=== PATIENT | female | born 2000 | race Caucasian/White ===

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

== ENCOUNTER 2022-04-14 16:15 | Emergency (ER) | payer BC, MEDICAID, SELFPAY ==
[2022-04-14 16:16] VITALS: BP 140/90; PULSE 109; RESP 18; TEMP 36.7; O2SAT 97; BMI 30.7
--- NOTE | 2022-04-14 16:47 | EDS_ITS ---
HPI HPI - Female History of Present Illness Chief Complaint: Vag Bleeding Narrative Narrative: Patient is a by 5 months presents with vaginal bleeding. She states that she started having menses again, the go from light to heavy. Over the last few days, she started having menses again, but is having heavier vaginal bleeding than normal. She denies any chest pain or shortness of breath. No other bleeding diathesis. No lightheadedness or dizziness. She presents because of her heavier menses/heavier vaginal bleeding. [facility] Medical History Arrest of dilation, delivered, current hospitalization delivery delivered Chorioamnionitis Home Medications medroxyprogesterone 150 mg/mL intramuscular syringe (Depo-Provera) 150 mg IM [id number] #1 mL 04/12/22 [Rx Last Taken Unknown] Allergy/AdvReac Type Severity Reaction Status Date / Time No Known Allergies Allergy Verified 04/14/22 16:20 Surgical History History of surgery Social History household members: spouse housing: house current occupational status: unemployed pets and animals: Yes Smoking Status: Never smoker second hand exposure: No alcohol intake: never substance use type: does not use caffeine: No seatbelt use: always do you feel safe at home: Yes additional social history: - Adolph NOBLE ED ROS Narrative Constitutional: No fever, no chills. HEENT: No sore throat. No neck pain. No loss of vision. No rhinorrhea. Cardiovascular: No chest pain. No palpitations. No pedal edema. Respiratory: No cough, no shortness of breath. Abdominal: No abdominal pain. No nausea. No vomiting. Genitourinary: No dysuria. No hematuria. Heavy vaginal bleeding times days. Musculoskeletal: No myalgias. No arthralgias. Neurologic: No headaches. No dizziness. No lightheadedness. Skin: No rash. No change in color. Psychiatric: No depression. No anxiety. EXAM Physical Exam Narrative Exam Narrative: Afebrile. Vital signs noted. HEENT: Normocephalic. Atraumatic. PERRL, EOMI. Neck soft and supple. No point tenderness or step off. Cardiovascular: Regular rate and rhythm. No murmurs, rubs, or gallops appreciated. Respiratory: No tachypnea. Lungs clear to auscultation bilaterally. Gastrointestinal: Abdomen soft, nontender, with normoactive bowel sounds. No rebound or guarding. Genitourinary: Chaperoned pelvic examination reveals small amount of blood on the external vagina. Speculum examination reveals small clots and a small amount of old blood in the vaginal vault with minimal bleeding coming from the cervical os. Bimanual examination was deferred. Neurological: Awake. Alert. Nonfocal, nonlateralizing. Skin: No rash. Normal color. No pallor. Musculoskeletal: No pedal edema. Full range of motion extremities. Const Vital Signs: 04/14/22 16:16 Temperature 98.1 F Temperature Source Temporal Pulse Rate 109 H Respiratory Rate 18 Blood Pressure 140/90 H Blood Pressure Mean 106 Pulse Ox 97 Oxygen Delivery Method Room Air MDM MDM MDM Narrative Medical decision making narrative: I will obtain a CBC to look at her platelet count and her hemoglobin, along with a serum test. Serum test is negative. CBC is grossly normal with a normal hemoglobin of 13.1. At this point in time, I do feel that she is just having heavy menstrual bleeding. She states she has an appointment with her LABOR TRAINER, Dr. Renate Cervantes tomorrow after she picks up her Depo- Provera shot. I feel she can be discharged safely home with follow-up. Return instructions to the emergency department were reviewed. Disposition is discharged home in stable condition. Lab Data Attestation: I reviewed the patient's lab results. Labs: Laboratory Results - last 24 hr 04/14/22 04/14/22 17:00 17:00 WBC 7.0 RBC 4.46 Hgb 13.1 Hct 38.4 MCV 86.1 MCH 29.4 MCHC 34.1 RDW Std Deviation 40.1 RDW Coeff of Jil 12.8 Plt Count 276 MPV 11.0 Immature Gran % (Auto) 0.100 Neut % (Auto) 56.8 Lymph % (Auto) 30.9 Bennett % (Auto) 9.0 Eos % (Auto) 2.6 Baso % (Auto) 0.6 Absolute Neuts (auto) 4.0 Absolute Lymphs (auto) 2.17 Nucleated RBC % 0 Serum , Qual NEGATIVE Discharge Plan Triage Chief Complaint: Vag Bleeding ED Provider: Evert Arciniega Dx/Rx/DC Orders Clinical Impression: Episode of heavy vaginal bleeding, Menorrhagia Instructions: ED Heavy Menstrual Bleeding Prescriptions: No Action medroxyprogesterone [Depo-Provera] 150 mg/mL syringe 150 mg IM [id number] Qty: 1 3RF Primary Care Provider: Care Physician,No Primary Referrals: Renate Cervantes MD [Med Staff - Active Staff] - 1 Day Care Physician,No Primary [Primary Care Provider] - Activity Restrictions/Additional Instructions: Keep your scheduled appointment with Dr. Renate Cervantes tomorrow after picking up your Depo-Provera. Disposition Disposition: Home, Self Care
[2022-04-14 17:15] LABS: Absolute Lymphocyte Count 2.17 X10^3/uL (0.83-4.51); Basophil# 0.04 X10^3/uL; Basophil% 0.6 % (0-1); Eosinophil# 0.18 X10^3/uL; Eosinophils% 2.6 % (0-5); Hematocrit 38.4 % (37-47); Hemoglobin 13.1 g/dL (12.0-15.0); Lymphocyte # 2.17 X10^3/ul (0.83-4.51); Lymphocyte % 30.9 % (19-41); Mean Corp Hgb Conc 34.1 g/dL (32-36); Mean Corpuscular Hgb 29.4 pg (27.0-32.0); Mean Corpuscular Volume 86.1 fL (81-99); Monocyte# 0.63 X10^3/uL; NRBC Flagged by Analyzer 0 % (0-5); Neutrophil # 3.99 X10^3/uL (2.7-7.7); Neutrophil % 56.8 % (47-70); Platelet Count 276 K/mm3 (150-450); RBC Distribution Width CV 12.8 % (11.6-14.6); RBC Distribution Width SD 40.1 fl (35.1-43.9); Red Blood Count 4.46 M/mm3 (4.2-5.4)
[2022-04-14 17:29] LABS: Internal QC Validated? YES +Cl - CLEAR BKGD; Pregnancy, Serum, hCG Quali. NEGATIVE Negative
== END 2022-04-14 18:02 | disposition home or self-care (01) ==
PROVIDERS: Emergency Provider Emergency Medicine; Visit Provider Emergency Medicine
DX: N93.9 Abnormal uterine and vaginal bleeding, unspecified (principal); N92.0 Excessive and frequent menstruation with regular cycle
CPT/HCPCS: 36415; 84703; 85025; 99282

== ENCOUNTER 2022-08-11 06:00 | Emergency (ER) | payer BC, MEDICAID, SELFPAY ==
[2022-08-11 06:01] VITALS: BP 157/86; PULSE 85; RESP 15; TEMP 36; O2SAT 97; BMI 39.0
--- NOTE | 2022-08-11 06:21 | EDS_ITS ---
HPI History of Present Illness Chief Complaint: Eye Problem Narrative Narrative: 22-year-old female who denies significant past medical history presents with crusting of her right eye, and redness with discharge. She denies any loss of vision. She states she awoke this morning and her right eye felt like it was glued shut. She denies any fevers or chills, no exacerbating or alleviating factors. Of note, she states that she was in the emergency department with her son a few days ago and he was diagnosed with pinkeye. She thinks she has the same. [facility] Medical History Arrest of dilation, delivered, current hospitalization delivery delivered Chorioamnionitis Home Medications medroxyprogesterone 150 mg/mL intramuscular syringe (Depo-Provera) 150 mg IM [id number] #1 mL 04/12/22 [Rx Last Taken Unknown] Allergy/AdvReac Type Severity Reaction Status Date / Time No Known Allergies Allergy Verified 04/15/22 13:16 Surgical History History of section History of surgery Social History household members: spouse housing: house current occupational status: unemployed pets and animals: Yes Smoking Status: Never smoker second hand exposure: No alcohol intake: never substance use type: does not use caffeine: No seatbelt use: always do you feel safe at home: Yes additional social history: - Adolph REAL ROS ED ROS Narrative Constitutional: No fever, no chills. HEENT: No sore throat. No neck pain. No loss of vision. No rhinorrhea. Right eye redness, discharge, matting shut. Cardiovascular: No chest pain. No palpitations. No pedal edema. Respiratory: No cough, no shortness of breath. Abdominal: No abdominal pain. No nausea. No vomiting. Genitourinary: No dysuria. No hematuria. Musculoskeletal: No myalgias. No arthralgias. Neurologic: No headaches. No dizziness. No lightheadedness. Skin: No rash. No change in color. Psychiatric: No depression. No anxiety. EXAM Physical Exam Narrative Exam Narrative: Afebrile. Vital signs noted. HEENT: Normocephalic. Atraumatic. PERRL, EOMI. Neck soft and supple. No point tenderness or step off. Injected conjunctive of right eye. No noted exudate. Cardiovascular: Regular rate and rhythm. No murmurs, rubs, or gallops appreciated. Respiratory: No tachypnea. Lungs clear to auscultation bilaterally. Gastrointestinal: Abdomen soft, nontender, with normoactive bowel sounds. No rebound or guarding. Neurological: Awake. Alert. Nonfocal, nonlateralizing. Skin: No rash. Normal color. No pallor. Musculoskeletal: No pedal edema. Full range of motion extremities. Const Vital Signs: 08/11/22 06:01 Temperature 96.8 F L Temperature Source Temporal Pulse Rate 85 Respiratory Rate 15 Blood Pressure 157/86 H Blood Pressure Mean 109 Pulse Ox 97 Oxygen Delivery Method Room Air MDM MDM MDM Narrative Medical decision making narrative: Clinically, the patient has conjunctivitis. Although it may be viral, she states that the ointment helped her son and cleared it up within a few days. Visual acuity will be obtained and noted per chart. Additionally, I did instill tetracaine and fluorescein in her right eye and examined it under bluelight and see no evidence of a corneal abrasion. She was told not to wear any eye make- up, but she states she does not wear any make-up at all. Additionally, she does not wear contact lenses. She was given erythromycin ointment and told to use warm compresses to her right eye. She will follow-up with ophthalmology as needed if no improvement in 3 to 5 days. I feel she be discharged safely home with follow-up. Return instructions to the emergency department were reviewed. She was given a note to be off work for the next 3 days until her conjunctivitis has improved/resolved. Disposition is discharged home in stable condition. Discharge Plan Triage Chief Complaint: Eye Problem ED Provider: Evert Arciniega Dx/Rx/DC Orders Clinical Impression: Conjunctivitis Instructions: ED Conjunctivitis, Nonspecific Prescriptions: No Action medroxyprogesterone [Depo-Provera] 150 mg/mL syringe 150 mg IM [id number] Qty: 1 3RF Stand Alone Forms: ED Work / School Excuse Primary Care Provider: Care Physician,No Primary Referrals: John Choe MD [Med Staff - Active Staff] - 3-5 Days if not improving Care Physician,No Primary [Primary Care Provider] - Disposition Disposition: Home, Self Care
[2022-08-11] MEDS: Tetracaine 0.5% Ophthalmic Bottle 1 DRP OPHTHALMIC (06:31)
[2022-08-11] MEDS: Fluorescein 1 MG STRIP 1 STRIP OPHTHALMIC (06:31)
[2022-08-11] MEDS: Erythromycin Base 1 OPTH.TUBE 1 APPLIC RIGHT EYE (06:34)
== END 2022-08-11 06:38 | disposition home or self-care (01) ==
LOC: ED 06:21
PROVIDERS: Emergency Provider Emergency Medicine; Visit Provider Emergency Medicine
DX: H10.9 Unspecified conjunctivitis (principal)
CPT/HCPCS: 99282

== ENCOUNTER 2023-08-15 17:34 | Emergency (ER) | payer BC, SELFPAY ==
[2023-08-15 17:35] VITALS: BP 129/76; PULSE 92; RESP 16; TEMP 36.6; O2SAT 98; BMI 38.5
[2023-08-15 19:40] VITALS: BP 122/71; PULSE 62; RESP 12; TEMP 36.2; O2SAT 99
--- NOTE | 2023-08-15 22:25 | EDS_ITS ---
HPI History of Present Illness Chief Complaint: Rash Narrative Narrative: 23-year-old female presenting with rash on back of hands bilaterally. It is itching and burning. She is some mild redness. 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 Patient states that she does not have any known allergies. She not had any new contacts with anything. She states she told her boss that was sent to the ER for evaluation. [facility] Medical History Arrest of dilation, delivered, current hospitalization delivery delivered Chorioamnionitis Home Medications NK 08/15/23 [History Last Taken Unknown] Allergy/AdvReac Type Severity Reaction Status Date / Time No Known Allergies Allergy Verified 08/15/23 17:37 Surgical History History of section History of surgery Social History household members: spouse housing: house current occupational status: unemployed pets and animals: Yes Smoking Status: Never smoker second hand exposure: No alcohol intake: never substance use type: does not use caffeine: No seatbelt use: always do you feel safe at home: Yes additional social history: - Adolph NOBLE ED Constitutional Constitutional ED: Denies chills, fever(s) or sweats Eyes Eyes: Denies blurry vision or change in vision ENT ENT ED: Denies ear pain or sore throat Cardiovascular Cardiovascular: Denies chest pain, palpitations or racing heartbeat Respiratory/Chest Respiratory/Chest: Denies cough, dyspnea or sputum Gastrointestinal Gastrointestinal: Denies abdominal pain, constipation, diarrhea, nausea or vomiting Genitourinary Genitourinary ED: Denies dysuria, hematuria or urinary frequency Musculoskeletal Musculoskeletal: Denies arthralgias, myalgias or neck pain Integumentary Reports rash; Denies abscess or Abrasions Neurologic Neurologic: Denies headache(s), paresthesias or weakness Psychiatric Psychiatric: Denies anxiety, depression, suicidal ideation or suicidal thoughts Endocrine Endocrinology: Denies polydipsia or polyuria EXAM Physical Exam Const Vital Signs: 08/15/23 17:35 08/15/23 19:40 Temperature 98 F 97.2 F L Temperature Source Temporal Pulse Rate 92 62 Respiratory Rate 16 12 Blood Pressure 129/76 H 122/71 H Blood Pressure Mean 93 88 Pulse Ox 98 99 Oxygen Delivery Method Room Air Positive well nourished General Appearance ED: NAD; Negative for pallor HEENT Reports moist mucous membranes Eyes PERRL and EOMs intact bilaterally Resp normal respiratory effort Cardio regular rate and regular rhythm Neuro oriented x3 and CN's II-XII intact bilaterally Sensorium / Orientation: alert Psych mental status grossly normal Skin Skin Narrative: Mild erythema noted to the bilateral hands on the dorsum of both hands. Nontender to palpation. No lymphangitic streaking. No evidence of cellulitis. General Skin Exam: Negative for jaundice or pallor MDM MDM MDM Narrative Medical decision making narrative: Patient presenting rash on hands. This is likely contact dermatitis secondary to cleaning products. I counseled her to wear gloves when she is at work using this product. She can use hand moisturizer at home. I counseled her to use hypoallergenic soaps and detergents. [facility] with the [facility]. Impression: 1. contact dermatitis Lab Data Attestation: I reviewed the patient's lab results. Discharge Plan Triage Chief Complaint: Rash ED Provider: Ousmane Weller Dx/Rx/DC Orders Instructions: ED Contact Dermatitis Prescriptions: No Action NK Primary Care Provider: Care Physician,No Primary Referrals: Care Physician,No Primary [Primary Care Provider] - [facility] [Non-Staff] - 3-5 Days Disposition Disposition: Home, Self Care Discharge Date/Time: 08/15/23 20:00
== END 2023-08-15 20:00 | disposition home or self-care (01) ==
PROVIDERS: Emergency Provider Student in an Organized Health Care Education/Training Program; Visit Provider Student in an Organized Health Care Education/Training Program
DX: L25.9 Unspecified contact dermatitis, unspecified cause (principal)
CPT/HCPCS: 99282

== ENCOUNTER 2024-06-16 20:26 | Emergency (ER) | payer BC, SELFPAY ==
[2024-06-16 20:27] VITALS: BP 139/84; PULSE 87; RESP 16; TEMP 36.6; O2SAT 98; BMI 36.8
--- NOTE | 2024-06-16 20:52 | EX.ED.DYSGE1 ---
HPI <DANIEL Ash - Last Filed: 06/16/24 21:16> History of Present Illness Chief Complaint: Laceration Narrative Narrative: Patient is a 24-year-old female with no significant medical history, presenting to the emergency department for a laceration to the distal tip of the right fourth finger. Patient dates she was cutting a tomato when she excellently cut the tip of her finger. Tetanus vaccination unknown. She has full range of motion. She was concerned because the bleeding would not stop. Here for evaluation. PFS <DANIEL Ash - Last Filed: 06/16/24 21:16> [facility] Medical History Arrest of dilation, delivered, current hospitalization delivery delivered Chorioamnionitis Home Medications ?Medication ?Instructions ?Recorded ?Last Taken ?Type NK 08/15/23 Unknown History Allergy/AdvReac Type Severity Reaction Status Date / Time No Known Allergies Allergy Verified 06/16/24 20:27 Surgical History History of section History of surgery Social History household members: spouse housing: house current occupational status: unemployed pets and animals: Yes Smoking Status: Never smoker second hand exposure: No alcohol intake: never substance use type: does not use caffeine: No seatbelt use: always do you feel safe at home: Yes additional social history: - Max ROS <DANIEL Ash - Last Filed: 06/16/24 21:16> ROS ED ROS Narrative Constitutional: Negative for fever, chills, weight loss, weakness Eyes: Negative for vision loss, vision change, double vision ENT: Negative for any sore throat, ear pain, congestion Cardiovascular: Negative for any chest pain, tightness, palpitations Respiratory: Negative for any cough, sputum production, hemoptysis, dyspnea, dyspnea on exertion, orthopnea Gastrointestinal: Negative for any abdominal pain, nausea, vomiting, diarrhea, constipation, blood in stool, blood in vomit : Negative for any urinary frequency, dysuria, retention, blood in urine Muscle skeletal: Negative for any neck pain, back pain Neurological: Negative for any headache, syncope, dizziness Skin: Negative for any rashes, itching, abrasions. Positive for laceration to the distal tip of the right fourth finger Psychiatric: Negative for any depression, anxiety, stress, suicidal ideation, homicidal ideation Hematologic: Negative for any excessive bruising, easy bleeding EXAM <DANIEL Ash - Last Filed: 06/16/24 21:16> Physical Exam Narrative Exam Narrative: Vital signs reviewed. Extremities: No peripheral edema, no signs of gross trauma or deformity. Active full range of motion of all extremities. Patient has what appears to be a small avulsion like laceration of the distal tip of the right fourth finger. The nailbed is intact, this is superficial have it is bleeding. This would not be able be sutured however this will heal from the inside out. There is no open fracture or tuft fracture. Neuro: Cranial nerves II through XII intact, no focal neurological deficits. Skin: Clean dry and intact with no rash, purpura, petechiae, vesicles or pustules. Backs/flank: No CVA tenderness, no midline spinal tenderness, no deformity. Psych: Normal mood and affect. No SI, HI or acute psychosis. Const Vital Signs: 06/16/24 20:27 Temperature 98 F Temperature Source Temporal Pulse Rate 87 Respiratory Rate 16 Blood Pressure 139/84 H Blood Pressure Mean 102 Pulse Ox 98 Positive well nourished and well developed General Appearance ED: well developed <Dr. Franco Ortiz DO - Last Filed: 06/16/24 21:04> Physical Exam Const Vital Signs: 06/16/24 20:27 Temperature 98 F Temperature Source Temporal Pulse Rate 87 Respiratory Rate 16 Blood Pressure 139/84 H Blood Pressure Mean 102 Pulse Ox 98 MDM <DANIEL Ash - Last Filed: 06/16/24 21:16> [facility] Treatment and Re-Evaluation :: Differential diagnosis includes however is not limited to: Foreign body, open fracture, avulsion fracture, simple laceration Patient appears generally well, vital signs are stable, patient is nontoxic-appearing. Presenting to the emergency department with complaints of avulsion like fracture of the distal tip of the right fourth finger. Patient received a digital block with lidocaine. Patient will be irrigated, patient will likely be placed in a Gelfoam dressing. Patient's wound was irrigated, I did cleanse the distal tip of the right fourth finger. I did place a Gelfoam splint, as well as provide a pressure dressing with tube gauze. Patient tolerated well. Patient was given the other half the Gelfoam and told to change her dressing in 24 hours. She is happy with the plan of care, given instructions to return for any sort of infection. Tetanus was updated today. Patient stable for discharge. ED attending note: I evaluated the patient in conjunction with the LALIT. I agree with his/her statements and above findings. I have personally performed a face to face assessment of the patient and have reviewed the LALIT Note. I performed a substantive portion of the visit including all aspects of the following. I personally saw the patient performed chart review, physical exam, reviewed labs, imaging (if obtained), and formulated a treatment and management plan. Brief history: 24-year-old [id number] female presents with right fourth digit injury. Exam: Nursing triage notes reviewed, Vital signs reviewed Constitutional: please see mdm Extremities: No edema Neuro: Intact 5/5 strength with ok sign (median), intact finger abduction (ulnar) intact wrist extension (radial n). Intact sensation in the radial, ulnar, and median nerve distributions. Skin: Avulsion noted to the distal fourth digit of the right hand. MDM/plan: Chief Complaint: Finger laceration External records reviewed: Reviewed prior allergies, problem list, vital signs, current medications Factors affecting care: None Social determinants of health: None History obtained from others: Consults: None [facility] narrative: The patient was initially hemodynamically stable, afebrile and nontoxic-appearing. Nasal exam consistent with avulsion injury. I considered the following differential diagnosis: Laceration, avulsion Initial exam there is no obvious nailbed involvement. The patient's right upper extremity is neurovascularly intact. I placed a digital block using 1% lidocaine without epinephrine in the proximal phalanx. This achieved good anesthesia. Will further explore the wound and cleanse the wound. Will make final determination about sutures based on final exam. Please see LALIT note for final details. Shared decision making: I will have a discussion with the patient and or visitors regarding risk/benefits of further testing or admission. They will be made aware of of the risk/benefits inherent in this decision they will be given the opportunity to voice understanding. This note was generated with [employer] software. It may contain incorrect words, spelling, and punctuation that were not noted in review of the chart prior to signing. <Dr. Franco Ortiz, DO - Last Filed: 06/16/24 21:04> [facility] Treatment and Re-Evaluation :: Differential diagnosis includes however is not limited to: Foreign body, open fracture, avulsion fracture, simple laceration Patient appears generally well, vital signs are stable, patient is nontoxic-appearing. Presenting to the emergency department with complaints of avulsion like fracture of the distal tip of the right fourth finger. Patient received a digital block with lidocaine. Patient will be irrigated, patient will likely be placed in a Gelfoam dressing. ED attending note: I evaluated the patient in conjunction with the LALIT. I agree with his/her statements and above findings. I have personally performed a face to face assessment of the patient and have reviewed the LALIT Note. I performed a substantive portion of the visit including all aspects of the following. I personally saw the patient performed chart review, physical exam, reviewed labs, imaging (if obtained), and formulated a treatment and management plan. Brief history: 24-year-old [id number] female presents with right fourth digit injury. Exam: Nursing triage notes reviewed, Vital signs reviewed Constitutional: please see mdm Extremities: No edema Neuro: Intact 5/5 strength with ok sign (median), intact finger abduction (ulnar) intact wrist extension (radial n). Intact sensation in the radial, ulnar, and median nerve distributions. Skin: Avulsion noted to the distal fourth digit of the right hand. MDM/plan: Chief Complaint: Finger laceration External records reviewed: Reviewed prior allergies, problem list, vital signs, current medications Factors affecting care: None Social determinants of health: None History obtained from others: Consults: None [facility] narrative: The patient was initially hemodynamically stable, afebrile and nontoxic-appearing. Nasal exam consistent with avulsion injury. I considered the following differential diagnosis: Laceration, avulsion Initial exam there is no obvious nailbed involvement. The patient's right upper extremity is neurovascularly intact. I placed a digital block using 1% lidocaine without epinephrine in the proximal phalanx. This achieved good anesthesia. Will further explore the wound and cleanse the wound. Will make final determination about sutures based on final exam. Please see LALIT note for final details. Shared decision making: I will have a discussion with the patient and or visitors regarding risk/benefits of further testing or admission. They will be made aware of of the risk/benefits inherent in this decision they will be given the opportunity to voice understanding. This note was generated with [employer] dictation software. It may contain incorrect words, spelling, and punctuation that were not noted in review of the chart prior to signing. Discharge Plan Triage Chief Complaint: Laceration ED Midlevel Provider: Zeus Adorno ED Provider: Franco Ortiz Dx/Rx/DC Orders Clinical Impression: Finger laceration Instructions: ED Laceration, All Closures, ED Wound Check (No Infection) Prescriptions: No Action NK Primary Care Provider: Care Physician,No Primary Referrals: Care Physician,No Primary [Primary Care Provider] - Activity Restrictions/Additional Instructions: Please change my dressing in 24 hours. Ensure that is clean, place the Gelfoam first then another Band-Aid. The bleeding should have stopped. If it is not, and oozes, just apply pressure, this can be painful. Return for any worsening symptoms. Print Language: Syriac Disposition Disposition: Home, Self Care
[2024-06-16] MEDS: Lidocaine 1% (20 ml mdv) 20 ML Vial INFILT (20:58)
[2024-06-16] MEDS: Diphth,Pertuss(Acell),Tet Vac 0.5 ML Vial IM (21:17)
[2024-06-16 21:22] VITALS: BP 130/84; PULSE 80; RESP 16; TEMP 36.6; O2SAT 98
== END 2024-06-16 21:24 | disposition home or self-care (01) ==
PROVIDERS: Emergency Provider Emergency Medicine; Visit Provider Emergency Medicine
DX: S61.214A Laceration without foreign body of right ring finger without damage to nail, initial encounter (principal); X58.XXXA Exposure to other specified factors, initial encounter
CPT/HCPCS: 90715; 99283

== ENCOUNTER → 2024-08-29 | Outpatient (CLI) | payer SELFPAY ==
[2024-08-29 12:20] LABS: Absolute Lymphocyte Count 2.01 X10^3/uL (0.83-4.51); Absolute Neutrophil Count 6.1 X10^3/uL (2.0-7.7); Basophil# 0.05 X10^3/uL; Basophil% 0.6 % (0-1); Eosinophil# 0.07 X10^3/uL; Eosinophils% 0.8 % (0-5); Hematocrit 38.2 % (37-47); Lymphocyte # 2.01 X10^3/ul (0.83-4.51); Lymphocyte % 22.5 % (19-41); Mean Corpuscular Hgb 30.2 pg (27.0-32.0); Mean Corpuscular Volume 88.6 fL (81-99); Mean Platelet Vol. 11.1 fl (6.2-12.0); Monocyte# 0.71 X10^3/uL; Monocyte% 7.9 % (0-10); NRBC Flagged by Analyzer 0 % (0-5); Neutrophil # 6.06 X10^3/uL (2.7-7.7); Neutrophil % 67.8 % (47-70); Platelet Count 254 K/mm3 (150-450); RBC Distribution Width CV 11.9 % (11.6-14.6); RBC Distribution Width SD 38.4 fl (35.1-43.9); Red Blood Count 4.31 M/mm3 (4.2-5.4); White Blood Count 8.9 K/mm3 (4.4-11.0)
[2024-08-29 13:04] LABS: HIV Nonreactive (Nonreactive); Hepatitis B Surface Antigen Nonreactive (Nonreactive); Rubella IgG REAC (Nonreactive); Syphilis Antibodies Nonreactive (Nonreactive)
[2024-08-29 13:26] LABS: Hemoglobin A1c 5.1 % (<=5.6)
[2024-08-29 21:10] LABS: Hepatitis C Antibody Nonreactive (Nonreactive)
[2024-08-31 12:08] LABS: Chlamydia By Nucleic Acid AMP Negative (Negative); Gonococcus By Nucleic Acid AMP Negative (Negative)
[2024-09-04 15:03] LABS: HPV Reflexed? NOT INDICATED
== END | disposition home or self-care (01) ==
PROVIDERS: Referring Provider Advanced Practice Midwife; Visit Provider Advanced Practice Midwife
DX: O99.210 Obesity complicating pregnancy, unspecified trimester (principal); Z3A.00 Weeks of gestation of pregnancy not specified; Z12.4 Encounter for screening for malignant neoplasm of cervix
CPT/HCPCS: 36415; 83036; 85025; 86703; 86762; 86780; 86803; 86850; 86900; 86901; 87086; 87088; 87340; 87491; 87591; 88175; G0145

== ENCOUNTER 2024-08-30 00:38 | Emergency (ER) | payer SELFPAY ==
[2024-08-30 00:40] VITALS: BP 130/69; PULSE 81; RESP 18; TEMP 36.1; O2SAT 99; BMI 16.5
--- NOTE | 2024-08-30 00:55 | US_ITS ---
PROCEDURE: TRANSVAGINAL W/PREG US REASON FOR EXAM: Left pelvic pain, 9 weeks COMPARISON: None. FINDINGS: The uterus measures 13.9 x 6.2 x 6.8 cm. Single live intrauterine measuring 9 weeks and 3 days by crown-rump length fundal portion of the uterus. heart tones 177 beats per minute. Yolk sac is present, 4 mm. No evidence of yazmin-sac haemorrhage. The cervix appears closed. The right and left ovaries are not identified. No evidence of adnexal mass. No free fluid seen. LINDA by ultrasound 04/03/2025, by last menstrual period 03/31/2025. US/Transvaginal w/Preg US IMPRESSION: Single live intrauterine measuring 9 weeks and 3 days by crown-rump l ength. heart tones 177 beats per minute.. Reading Location: [id number]
--- NOTE | 2024-08-30 00:55 | ED.VIS.GI ---
HPI HPI - GI History of Present Illness Chief Complaint: Abd Pain Informant: patient and PCP (OB Dr. Cervantes) Narrative Narrative: 24-year-old female states she started having left lower pelvic/abdominal pain about 4 or 5 hours ago. She is 9 weeks . She states earlier today she had a checkup in the office and housing inspectors did an ultrasound and told her she had an IUP. G2, . She states she was having some trouble urinating tonight 2, when she felt like she needed to go she only dribbled a little. She denies any hematuria. No dysuria. No pain in her flank or back. No nausea or vomiting. No fevers or chills. Normal bowel movements. 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 @ [employer] current occupational exposures/hazards: No pets and animals: No history of recent travel: No sexually active: Yes Smoking Status: Former smoker second hand exposure: No alcohol intake: never substance use type: does not use well-balanced diet: daily or most days caffeine: Yes Type: carbonated beverages eating out: rarely or never during the past year weight has: remained stable what type of physical activity do you participate in: walking frequency: 1-2 times per week duration: < 15 minutes/day aly/rastafari: None seatbelt use: always do you feel safe at home: Yes additional social history: : Adolph NOBLE ED Constitutional Constitutional ED: Denies chills or fever(s) Eyes Eyes: Denies change in vision or diplopia ENT ENT ED: Denies rhinorrhea or sore throat Cardiovascular Cardiovascular: Denies chest pain or palpitations Respiratory/Chest Respiratory/Chest: Denies cough or dyspnea Gastrointestinal Gastrointestinal: Reports abdominal pain; Denies diarrhea, nausea or vomiting Genitourinary Genitourinary ED: Denies dysuria, hematuria, vaginal bleeding or vaginal discharge Musculoskeletal Musculoskeletal: Denies back pain or neck pain Integumentary Denies abscess or rash Neurologic Neurologic: Denies headache(s), paresthesias or weakness Psychiatric Psychiatric: Denies anxiety or suicidal thoughts EXAM Physical Exam Const Vital Signs: 08/30/24 00:40 Temperature 97.0 F L Temperature Source Oral Pulse Rate 81 Respiratory Rate 18 Blood Pressure 130/69 H Blood Pressure Mean 89 Pulse Ox 99 Oxygen Delivery Method Room Air Positive well nourished and well developed General Appearance ED: well developed and NAD HEENT Reports moist mucous membranes normocephalic and atraumatic Eyes PERRL and EOMs intact bilaterally Neck full ROM and supple Resp normal respiratory effort and clear to auscultation bilaterally Cardio regular rate, regular rhythm and no murmurs GI non-distended GI Narrative: Very tender in the left pelvis with some voluntary guarding otherwise benign abdomen. Auscultation: normoactive bowel sounds Palpation: soft Speculum Exam - Vagina: Negative for vaginal bleeding or vaginal discharge Back/Spine no CVA tenderness General Back: other FROM Extremity normal to inspection General Extremety ED: Negative for edema, pulses abnormal or tenderness General Extremity: Negative for edema or pulses abnormal Neuro oriented x3, CN's II-XII intact bilaterally and no sensory deficits noted Sensorium / Orientation: awake and alert Motor Exam: strength 5/5 throughout Skin no rashes or lesions noted and no wounds MDM MDM MDM Narrative Medical decision making narrative: Patient wanted morphine for pain. We discussed the pros and cons of doing that when you are , she understands and would like a dose because she was in a lot of pain although she looked well. She said it really helped. I obtained a quantitative hCG, which is over 100,000, and an emergent ultrasound of the pelvis, transvaginal. I reviewed the images and the result which I agree with, it shows a single live intrauterine and no signs of an adnexal mass on either side. Ureterolithiasis and ureteral colic are in the differential as well, I sent urinalysis shows no blood which does not necessarily rule that out, she has 100 leukocyte esterase and 5-10 white blood cells but more epithelials, and she incidentally does have urate which can cause kidney stones in the right setting. I advised her that I would recommend only Tylenol for pain, and I am sending her home with some urine strainers to do for a couple days, if she has no more pain then she can discontinue that. I do not think the urinalysis results indicate an acute infection but am sending a culture anyway because she is . She can follow-up with her OB. Lab Data Attestation: I reviewed the patient's lab results. Labs: Laboratory Results - last 24 hr 08/30/24 08/30/24 00:50 01:05 HCG, Quant [id number] H Urine Color Yellow Urine Clarity Cloudy Urine pH 6.0 Ur Specific [place] 1.025 Urine Protein 30 H Urine Glucose (UA) Normal Urine Ketones Negative Urine Occult Blood Negative Urine Nitrite Negative Urine Bilirubin Negative Urine Urobilinogen 1 H Ur Leukocyte Esterase 100 H Urine RBC 0 SEEN Urine WBC 5-10 SEEN Ur Squamous Epith Cells 10-25 SEEN Amorphous Sediment 1+ URATE Urine Bacteria RARE Urine Mucus 0 SEEN Radiography Diagnostic Testing: Clinical Impression(s) from Imaging Studies Obstetrics Ultrasound 08/30/24 00:55 IMPRESSION: Single live intrauterine measuring 9 weeks and 3 days by crown-rump length. heart tones 177 beats per minute.. Reading Location: [facility] Discharge Plan Triage Chief Complaint: Abd Pain ED Provider: Christiano Villafuerte Dx/Rx/DC Orders Clinical Impression: Pelvic pain affecting in first trimester, antepartum Instructions: ED Flank Pain, Uncertain Cause, ED Pelvic Pain, Unknown Cause, ED Urine Strainer Prescriptions: No Action NK Primary Care Provider: Care Physician,No Primary Referrals: Renate Cervantes MD [Med Staff - Active Staff] - 1-2 Days if not improving Activity Restrictions/Additional Instructions: Strain your urine for a couple days. If ear pain does not return, you may stop. We sent a urine culture. If it returns positive for infection, you should receive a call from someone but follow-up with your OB anyway just in case. Tylenol as needed for pain, you can take up to 4000 mg every 24 hours if you are continuing to take it throughout the day every day. This equates to 2 extra strength Tylenol, 1000 mg, about every 6 hours. Print Language: Hebrew Disposition Disposition: Home, Self Care
[2024-08-30] MEDS: Morphine 4 MG/ML Syringe IV (01:04)
[2024-08-30 01:12] LABS: Mucous, Urine 0 SEEN /hpf (<or=2+)
[2024-08-30 01:14] LABS: Color, Urine Yellow (Yellow); Glucose, Dipstick Normal (Normal); Ketone-Dipstick Negative (Negative); Leukocyte Esterase-Dipstick 100 /ul (Negative); Nitrite-Dipstick Negative (Negative); Occult Blood-Urine Negative /ul (Negative); Protein-Dipstick 30 mg/dl (Negative); Specific Gravity, Urine 1.025 (1.002-1.030); Urine Bilirubin Dipstick Negative (Negative); Urine Clarity Cloudy (Clear); Urine Urobilinogen 1 mg/dl (Normal)
[2024-08-30 01:24] LABS: Amorphous Sediment 1+ URATE; Bacteria RARE /hpf (None Seen); Red Blood Cells-Urine 0 SEEN /hpf (0-5); Squamous Epithelial Cells - UA 10-25 SEEN /hpf (5-10); White Blood Cells 5-10 SEEN /hpf (0-5)
[2024-08-30 01:47] LABS: hCG Titer Quant., Serum 102229 mIU/mL (<9 non-preg)
[2024-08-30 02:37] VITALS: BP 130/74; PULSE 73; RESP 18; TEMP 36.7; O2SAT 100
== END 2024-08-30 02:37 | disposition home or self-care (01) ==
PROVIDERS: Emergency Provider Emergency Medicine; Visit Provider Emergency Medicine
DX: O99.891 Other specified diseases and conditions complicating pregnancy (principal); R10.2 Pelvic and perineal pain; Z87.891 Personal history of nicotine dependence; Z3A.09 9 weeks gestation of pregnancy
CPT/HCPCS: 76817; 81001; 84702; 87086; 87088; 96374; 99282; A4216

== ENCOUNTER → 2024-10-02 | Outpatient (CLI) | payer MEDICAID, SELFPAY | END | disposition home or self-care (01) | PROVIDERS: Referring Provider Obstetrics & Gynecology; Visit Provider Obstetrics & Gynecology | DX: Z34.82 Encounter for supervision of other normal pregnancy, second trimester (principal) | CPT/HCPCS: 36415 ==

== ENCOUNTER 2024-10-25 18:54 | Emergency (ER) | payer MEDICAID, SELFPAY ==
[2024-10-25 18:55] VITALS: BP 136/79; PULSE 102; RESP 19; TEMP 36.6; O2SAT 98; BMI 36.1
--- NOTE | 2024-10-25 19:20 | EDS_ITS ---
<Statement entered by Heraclio Ornelas DO - 10/25/24 22:30> Patient was seen and examined with physician facilities assistant All components of the history and physical confirmed and agreed. History of present illness and physical exam: Patient is a 24-year-old female currently 18 weeks G 2P1 who presents to the emerged part with a chief complaint of nausea vomiting not able to keep anything down. Patient states that she has Zofran ODT at home but notes that this morning she started vomiting and tried the Zofran and had no improvement. States that she feels hungry and has been able to keep water down but anytime she tries to eat anything she immediately vomits this up. Patient denies abdominal pain, vaginal spotting or bleeding, vaginal discharge. Patient denies any urinary symptoms. Patient denies any sick contacts. Review of systems: Noted above Physical exam: Agree with above MDM: Patient is a 24-year-old female who presented to the emergency department chief complaint nausea vomiting setting . On the differential diagnosis includes but not to COVID, flu, RSV, other viral gastroenteritis, vomiting and . Once workup is obtained reviewed she will be reevaluated. Patient was given Reglan. On reevaluation patient she is feeling much better and was able to eat here in the emergency department. She has been drinking water all day long and keeping this down with any vomiting. Urinalysis had 1+ bacteria was sent for culture. She was recommended follow-up with the OB team in the outpatient setting return with worsening symptoms or concerns. She is agreeable to plan all question concerns answered she is discharged home in stable condition. Final impression: Nausea vomiting Disposition: Patient will be discharged home in stable condition Supervising attending attestation: Heraclio Ornelas D.O. [facility] History of Present Illness Chief Complaint: Nausea/Vomiting Narrative Narrative: 24-year-old female is approximately 18 weeks presenting with nausea and vomiting. She states she has daily nausea and takes Zofran ODT usually once a day but today she vomited a couple times and tried Zofran x 3 doses without improvement. She can keep down water but cannot keep down food and states she is very hungry. She has no abdominal pain or bleeding. No urinary symptoms. 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[employer] current occupational exposures/hazards: No pets and animals: No history of recent travel: No sexually active: Yes Smoking Status: Former smoker second hand exposure: No alcohol intake: never substance use type: does not use well-balanced diet: daily or most days caffeine: Yes Type: carbonated beverages eating out: rarely or never during the past year weight has: remained stable what type of physical activity do you participate in: walking frequency: 1-2 times per week duration: < 15 minutes/day aly/oriental orthodox: None seatbelt use: always do you feel safe at home: Yes additional social history: : Adolph NOBLE Narrative Constitutional: Negative for fever, chills, malaise. GI: Positive for nausea, vomiting. Negative for abdominal pain, diarrhea, constipation, melena, hematochezia. : Negative for dysuria. EXAM Physical Exam Narrative Exam Narrative: CONST: Patient sitting in no acute distress. EYES: Normal inspection. NECK: Normal inspection. RESP: No respiratory distress, CTAB. CVS: Regular rate and rhythm, no murmur, no gallop. ABD: Soft and nontender, no guarding or rebound, nondistended. SKIN: Color normal, no rash, warm, dry, intact. EXTREMITIES: Normal appearance, no pedal edema. NEURO: Alert and answering questions appropriately. PSYCH: Normal affect. Const Vital Signs: 10/25/24 18:55 Temperature 97.9 F Temperature Source Oral Pulse Rate 102 H Respiratory Rate 19 H Blood Pressure 136/79 H Blood Pressure Mean 98 Pulse Ox 98 Oxygen Delivery Method Room Air MDM MDM MDM Narrative Medical decision making narrative: 24-year-old female in second trimester presents with nausea and vomiting. She is keeping down fluids and has no abdominal pain or bleeding. She is hemodynamically stable and has a soft, benign abdomen. She was given IV Reglan and feels better and was able to eat a meal in the department. Again she has been keeping down fluids all day so I do not think IV fluids were indicated. Urinalysis has 1+ bacteria and will be sent for culture. I recommended follow- up with OB and discussed return precautions. She was discharged in stable condition. Lab Data Attestation: I reviewed the patient's lab results. Labs: Laboratory Results - last 24 hr 10/25/24 19:33 Urine Color Yellow Urine Clarity Sl. Cloudy Urine pH 5.0 Ur Specific [place] 1.025 Urine Protein 30 H Urine Glucose (UA) Normal Urine Ketones 5 H Urine Occult Blood Negative Urine Nitrite Negative Urine Bilirubin 1 H Urine Urobilinogen 1 H Ur Leukocyte Esterase 25 H Urine RBC 0-5 SEEN Urine WBC 0-5 SEEN Ur Squamous Epith Cells 0-5 SEEN Urine Bacteria 1+ Urine Mucus 1+ Discharge Plan Triage Chief Complaint: Nausea/Vomiting ED Midlevel Provider: Lisa Garcia ED Provider: Heraclio Ornelas Dx/Rx/DC Orders Clinical Impression: Nausea and vomiting, Second trimester Instructions: ED Vomiting (Adult) Prescriptions: No Action ondansetron 4 mg tablet,disintegrating 4 mg PO Q4H PRN (Reason: nausea and vomiting) Qty: 60 2RF Stand Alone Forms: ED Work / School Excuse Primary Care Provider: Care Physician,No Primary Referrals: Care Physician,No Primary [Primary Care Provider] - Activity Restrictions/Additional Instructions: If you feel like your Zofran is not helping adequately please talk to your BRUS[facility] for other options. Print Language: Kiswahili Disposition Disposition: Home, Self Care Discharge Date/Time: 10/25/24 20:39
[2024-10-25] MEDS: Metoclopramide 10 MG/2 ML Vial 5 MG IV (19:26)
[2024-10-25 19:46] LABS: Color, Urine Yellow (Yellow); Glucose, Dipstick Normal (Normal); Ketone-Dipstick 5 mg/dl (Negative); Leukocyte Esterase-Dipstick 25 /ul (Negative); Nitrite-Dipstick Negative (Negative); Occult Blood-Urine Negative /ul (Negative); Protein-Dipstick 30 mg/dl (Negative); Specific Gravity, Urine 1.025 (1.002-1.030); Urine Bilirubin Dipstick 1 mg/dL (Negative); Urine Clarity Sl. Cloudy (Clear); Urine Urobilinogen 1 mg/dl (Normal)
[2024-10-25 20:51] LABS: White Blood Cells 0-5 SEEN /hpf (0-5)
[2024-10-25 20:52] LABS: Red Blood Cells-Urine 0-5 SEEN /hpf (0-5); Squamous Epithelial Cells - UA 0-5 SEEN /hpf (5-10)
[2024-10-25 20:56] LABS: Bacteria 1+ /hpf (None Seen)
[2024-10-25 20:57] LABS: Mucous, Urine 1+ /hpf (<or=2+)
== END 2024-10-25 20:39 | disposition home or self-care (01) ==
PROVIDERS: Emergency Provider Emergency Medicine; Visit Provider Emergency Medicine
DX: O21.9 Vomiting of pregnancy, unspecified (principal); Z3A.18 18 weeks gestation of pregnancy; Z87.891 Personal history of nicotine dependence
CPT/HCPCS: 81001; 87086; 87088; 96374; 96376; 99283; A4216

== ENCOUNTER → 2024-11-12 | Outpatient (CLI) | payer MEDICAID, SELFPAY ==
--- NOTE | 2024-11-12 12:22 | US_ITS ---
PROCEDURE: OB ANATOMY W/ TRANSVAGINAL 11/12/2024 REASON FOR EXAM: ANATOMY SCAN TECHNIQUE: High resolution obstetric ultrasound performed using a 2D transducer. Standard views obtained, including biometry, anatomy survey, and Doppler studies. COMPARISON: Prior study dated August 30, 2024. FINDINGS LMP: June 24, 2024. Number: 1 Position: Vertex Placental Position: Anterior and not low-lying. Placental Abnormalities: None DIMENSIONS: Biparietal Diameter: 4.2 cm: 18 weeks and 4 days: 4 percentile/ Head Circumference: 16.5 cm: 19 weeks and 2 days: 9 percentile/ Abdominal Circumference: 14.6 cm: 19 weeks and 6 days: 37 percentile/ Femur Length: 3.3 cm: 20 weeks and 1 day: 43rd percentile/ ESTIMATED WEIGHT: 317 g plus/-48 g ESTIMATED WEIGHT PERCENTILE (24+ weeks): 30 ESTIMATED GESTATIONAL AGE: Baseline: 20 weeks and 1 day By Ultrasound: 19 weeks and 4 days ESTIMATED DATE OF DELIVERY: Baseline: March 31, 2025 By Ultrasound: April 04, 2025 BIOPHYSICAL ASSESSMENT: Amniotic Fluid Volume: 5.5 cm Amniotic Fluid Index: Within normal limits. (8-24 cm normal range) Cardiac Motion: 131 beats per minute (average) Trunk and Limb Motion: Present. MATERNAL ANATOMY: Adnexa: Both maternal ovaries are visualized and unremarkable. Cervical Length (if measured): 4.4 cm ANATOMY: Spine: Unremarkable Cranium: Unremarkable Cerebellum: Unremarkable Cisterna Magna: Unremarkable Cavum Septum Pellucidi: Unremarkable Lateral Ventricles: Unremarkable Choroid Plexus: Unremarkable Midline Falx: Unremarkable Nuchal Fold: Unremarkable Upper Lip: Unremarkable Heart: Unremarkable Ventricular Outflow Tracts: Unremarkable Stomach: Unremarkable Kidneys: Unremarkable Bladder: Unremarkable Umbilical Cord: Unremarkable unremarkable US/OB Anatomy w/ Transvaginal IMPRESSION: Single live intrauterine gestation with a mean gestational age of 19 weeks and 4 days. Reading Location: [facility]
== END | disposition home or self-care (01) ==
LOC: OPUS 12:21
PROVIDERS: Referring Provider Nurse Practitioner Women's Health; Visit Provider Nurse Practitioner Women's Health
DX: Z34.90 Encounter for supervision of normal pregnancy, unspecified, unspecified trimester (principal)
CPT/HCPCS: 76805; 76817

== ENCOUNTER → 2024-11-21 | Outpatient (CLI) | payer MEDICAID, SELFPAY | END | disposition home or self-care (01) | LOC: LABSPEC 14:52 | PROVIDERS: Referring Provider Obstetrics & Gynecology; Visit Provider Obstetrics & Gynecology | DX: R30.0 Dysuria (principal) | CPT/HCPCS: 87086; 87088 ==

== ENCOUNTER 2024-12-25 09:30 | Outpatient (CLI) | payer MEDICAID, SELFPAY ==
[2024-12-25 09:54] VITALS: BMI 37.9
[2024-12-25 10:05] VITALS: BP 118/63; PULSE 69; RESP 16; TEMP 36.8
[2024-12-25 10:47] VITALS: PULSE 65; O2SAT 98
--- NOTE | 2024-12-25 10:50 | US_ITS ---
PROCEDURE: KIDNEY AND BLADDER 12/25/2024 REASON FOR EXAM: PELVIC PAIN TECHNIQUE: KIDNEY AND BLADDER COMPARISON: None FINDINGS: Right kidney measures 11.7 x 6.9 x 6.1 cm. No hydronephrosis, calculi or mass. Renal cortex measures 2.3 cm Incidental note is made of a prominent renal pelvis Left kidney measures 11.6 x 5.3 x 6.4 cm. No hydronephrosis calculi or mass. 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 Reading Location: [id number]
[2024-12-25 10:52] VITALS: PULSE 74; O2SAT 97
--- NOTE | 2024-12-25 10:52 | US_ITS ---
PROCEDURE: TRANSVAGINAL W/PREG US 12/25/2024 REASON FOR EXAM: labor TECHNIQUE: TRANSVAGINAL W/PREG US COMPARISON: 11/12/2024 FINDINGS Single live intrauterine with heart rate noted at 131 beats per minute. Presentation is cephalic. Placenta is anterior not low lying. Cervical length measures 4.7 cm, cervix closed Left ovary not identified, no free fluid in the cul de sac age measures 26 weeks, 2 days for an LINDA of 03/31/2025. US/Transvaginal w/Preg US IMPRESSION: Single live intrauterine at 26 weeks 2 days with LINDA of 03/31/2025. Heart rate of 131 beats per minute. Left ovary not evaluated Reading Location: [id number]
--- NOTE | 2024-12-25 20:23 | OB.TRI.HP_ITS ---
HPI - General HPI Jun RODGERS, is a 24 y/o @ 26 weeks 2 dasy who presents tto L&D with the complaint of 10/10 left lower quadrant pain. She was sent in from my office after she was examined and found to have a closed cervix. She denies fevers and chills. No loss of fluid, vaginal bleeding, or decreased movement. She denies trauma to the abdomen, recent intercourse, or any other unusual activity within the last 24 hours. She does not think she has drank a lot of water today. 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[employer] current occupational exposures/hazards: No pets and animals: No history of recent travel: No sexually active: Yes Smoking Status: Former smoker second hand exposure: No alcohol intake: never substance use type: does not use well-balanced diet: daily or most days caffeine: Yes Type: carbonated beverages eating out: rarely or never during the past year weight has: remained stable what type of physical activity do you participate in: walking frequency: 1-2 times per week duration: < 15 minutes/day aly/mandaeism: None seatbelt use: always do you feel safe at home: Yes additional social history: : Max History 2 Elective abortions Hx Para 1 Spontaneous abortions Hx # Term Pregnancies 1 Ectopic pregnancies Hx # Pregnancies Multiple births # of living children 1 Past Pregnancies Del. Date Name GA/Weeks Outcome Route Bth Weight Infant Gen Labor Lgth Anesthesia Del Locatn Provider FOB 11/06/21 Babak 39 live - full term 8lbs 14oz Male epidural [facility] Renate Farfan Delivery Date: 11/06/21 Last Updated by: Adri Kimble, RN [facility]CS SM AOD 6 cm boy Babak IOL 41 Visit Details Expected Delivery Route/Plan Repeat C/S with SM Plans Covid status: [] Flu vaccine: [] Tdap vaccine: [] Rhogam: [] LARC form signed: [] Problem list reviewed and updated with the most current plan of care details and appropriate orders placed. Relevant counseling for the gestational age provided. Continue routine care and follow up unless otherwise noted in visit notes/problem list details OB Flowsheet Initial Weight: 259 lb Date -?-?-?-?-?-?-?-?-?-?-?-?- EGA Weight BP Urine Prot -?-?-?-?-?-?-?-?-?-?-?-?- Glucose FHR FuHt Pres Dilation -?-?-?-?-?-?-?-?-?-?-?-?- Effaced St Visit Note 08/29/24 -?-?-?-?-?-?-?-?-?-?-?-?- 9w 3d 259 lb 6 oz (+6 oz) 121/78 -?-?-?-?-?-?-?-?-?-?-?-?- 168 -?-?-?-?-?-?-?-?-?-?-?-?- KW- CRL cons wit h dates. Declines NIPT. requesting 39 week RC/S 09/04/24 -?-?-?-?-?-?-?-?-?-?-?-?- 10w 2d 255 lb 4 oz (-3 lb 12 oz) 113/73 Negative -?-?-?-?-?-?-?-?-?-?-?-?- Negative 158 -?-?-?-?-?-?-?-?-?-?-?-?- JV- follow up ER visit today. She possibly passed a kidney stone and feeling better until she had to lift someone heavy at work. FHT seen today on bedside scan. wants NIPT now. plans to return to do this. work restriction letter given. if pain returns will order a KUB 09/26/24 -?-?-?-?-?-?-?-?-?-?-?-?- 13w 3d 258 lb (-16 oz) 123/73 Negative -?-?-?-?-?-?-?-?-?-?-?-?- Negative 155 -?-?-?-?-?-?-?-?-?-?-?-?- JV- no complaint s. is going to medicaid office today and will let us know if approved. if approved will order mfm ultrasound and NIPT with new ob labs. 10/21/24 -?-?-?-?-?-?-?-?-?-?-?-?- 17w 0d 258 lb 2 oz (-14 oz) 115/71 -?-?-?-?-?-?-?-?-?-?-?-?- 148 -?-?-?-?-?-?-?-?-?-?-?-?- MH-No VB. ?flutt ers. Reviewed nl PN labs. Girl Unable to void this appt. Nausea persists, heberan helpful 11/21/24 -?-?-?-?-?-?-?-?-?-?-?-?- 21w 3d 259 lb (+0 oz) 113/68 Negative -?-?-?-?-?-?-?-?-?-?-?-?- Negative 150 20 -?-?-?-?-?-?-?-?-?-?-?-?- SM- SM- no vb cramping some inte rmittent left side pain suspect round ligament, UA and Culture 12/20/24 -?-?-?-?-?-?-?-?-?-?-?-?- 25w 4d 262 lb (+3 lb) 114/78 -?-?-?-?-?-?-?-?-?-?-?-?- 157 25 -?-?-?-?-?-?-?-?-?-?-?-?- LC- no vb/crampi ng. good fm. no concerns today. 28 week labs ordered. 12/25/24 -?-?-?-?-?-?-?-?-?-?-?-?- 26w 2d 259 lb 4 oz (+4 oz) 117/77 1+ -?-?-?-?-?-?-?-?-?-?-?-?- Negative 146 0 -?-?-?-?-?-?-?-?-?-?-?-?- JV- patient is geovanni latham seen urgently today for pelvic pain. She woke up with pain that was moderate to severe JV- patient is being seen ur gently today for pelvic pain. She woke up with pain that was moderate to severe. Her anatomy scan showed a cl of 4.4 cm. placenta posterior and not low lying. UA showed + 1 protein, no blood or ketones. Sending to to L&D for tocometer and possible CT or KUB to rule out kidney stone. ROS Constitutional Constitutional: Reports systems reviewed and no addt'l complaints, except as documented Gastrointestinal Gastrointestinal: Denies bloating, constipation, cramping, diarrhea, nausea or vomiting Genitourinary Genitourinary: Reports other Details: Denies vaginal odor, vaginal bleeding, or vaginal discharge ; Denies difficulty urinating or flank pain NST FHR Rate Baby A Baseline: 140 Variability:: Moderate Accelerations:: 15 x 15 Decelerations:: None NST Reactive:: Yes FHR Category:: Category I Assessment & Plan (1) Pelvic pain affecting : (2) Family history of autism: COMMENT: FOB sister (3) History of delivery, currently : COMMENT: x1, Desires rpt csec with SM (4) Obesity affecting : QUALIFIERS: Trimester: second trimester Obesity type affecting : unspecified obesity Qualified Code(s): O99.212 - Obesity complicating , second trimester COMMENT: BMI: 35.6; HgBA1C ordered w/NOB (5) Supervision of high-risk : QUALIFIERS: Trimester: second trimester Qualified Code(s): O09.92 - Supervision of high risk , unspecified, second trimester COMMENT: PRR, , LINDA 03/31/25 Girl, Rao PC: Babak, : Max (6) : QUALIFIERS: Weeks of gestation: 26 weeks Qualified Code(s): Z3A.26 - 26 weeks gestation of COMMENT: Discussed genetic/carrier testing - prior carrier done. Panorama low risk-female. unremarkable anatomy, consistent dates PLAN: Plan ultrasound shows over 4 cm cervix. no renal calculi, no ovarian cyst on the left side. There are no contractions on the monitor After resting and drinking water the patient stated that she felt better. Ok to dc to home Charges/Coding Multi Select Codes Urinary/Genital Urinary/Genital CPT Codes: 05492-01 non-stress test Interp
== END 2024-12-25 13:50 | disposition home or self-care (01) ==
LOC: WPOUT 09:41 → WP 09:42
PROVIDERS: Referring Provider Obstetrics & Gynecology; Visit Provider Obstetrics & Gynecology
DX: O99.891 Other specified diseases and conditions complicating pregnancy (principal); O99.212 Obesity complicating pregnancy, second trimester; R10.2 Pelvic and perineal pain; Z3A.26 26 weeks gestation of pregnancy; Z87.891 Personal history of nicotine dependence
CPT/HCPCS: 59025; 59050; 76770; 76817; 87070; 87086; 87088; 87205

== ENCOUNTER → 2024-12-25 | Outpatient (CLI) | payer MEDICAID, SELFPAY | END | disposition home or self-care (01) | PROVIDERS: Visit Provider Obstetrics & Gynecology | DX: O26.899 Other specified pregnancy related conditions, unspecified trimester (principal); R10.2 Pelvic and perineal pain; Z3A.00 Weeks of gestation of pregnancy not specified | CPT/HCPCS: 87070; 87086; 87205 ==

== ENCOUNTER → 2025-01-06 | Outpatient (CLI) | payer MEDICAID, SELFPAY ==
[2025-01-06 17:00] LABS: Hematocrit 36.3 % (37-47); Hemoglobin 12.6 g/dL (12.0-15.0); Immature Granulocytes Count 0.070 X10^3/uL (0.0-0.0); Mean Corp Hgb Conc 34.7 g/dL (32-36); Mean Corpuscular Volume 91.4 fL (81-99); Mean Platelet Vol. 12.4 fl (6.2-12.0); NRBC Flagged by Analyzer 0 % (0-5); Platelet Count 192 K/mm3 (150-450); RBC Distribution Width CV 12.4 % (11.6-14.6); RBC Distribution Width SD 41.3 fl (35.1-43.9); Red Blood Count 3.97 M/mm3 (4.2-5.4); White Blood Count 10.8 K/mm3 (4.4-11.0)
[2025-01-06 17:54] LABS: Glucose Challenge Gest 1H 50g 79 mg/dL (70-140); HIV Nonreactive (Nonreactive); Syphilis Antibodies Nonreactive (Nonreactive)
--- OUTSIDE RECORDS SUMMARY | 2025-01-06 22:45 | XMS RPT_ITS | CCD ---
Author Organization [facility] Care Team Providers Care Data Analytics Developer Name Role Phone DO Lukas Westbrook Referring Provider Unavailabl e Dr. Raven Modi Attending Provider [phone] Care Physician, No Primary Primary Care Provider Unavailable Care Physician, No Primary Referring Provider Un available Summer ROAST MASTER, DANIEL Bean Attending Provider [phone] Dr. Renate Handley Attending Provider Dr. Raven Modi Other Provider Dr. Raven Modi Admit Provider Dr. Renate Handley Admit Provider Dr. Renate Handley Other Provider Care Physician, No Primary Primary Care Provider Unavailable Care Physician, No Primary Referring Provider Un available Dr. Renate Handley Attending Provider Care Physician, No Primary Primary Care Provider Unavailable Dr. Franco Ortiz DO Attending Provider [phone] Dr. Franco Ortiz DO Emergency Provider Adri Kimble RN Attending Provider Unavailabl e Care Physician, No Primary Referring Provider Un available Shell Curry CNM Attending Provider [phone] Shell Curry CNM Referring Provider [phone] Christiano Villafuerte MD Emergency Provider Care Physician, No Primary Primary Care Provider Unavailable Dr. Franco Ortiz DO Attending Provider Dr. Franco Ortiz DO Emergency Provider Adri Kimble RN Attending Provider Unavailabl e Care Physician, No Primary Referring Provider Un available Patricio CROWLEY, Shell Attending Provider [phone] Shell Curry CNM Referring Provider [phone] Noy SANTOS, Dr. Alvarado Emergency Provider Kim Espinoza DO, Dr. Carbajal Attending Provider Noy SANTOS, Dr. Alvarado Attending Provider Kim Espinoza DO, Dr. Carbajal Referring Provider Care Physician, No Primary Primary Care Provider Unavailable [place] ROAST MASTER-C, [place] Attending Provider Ceci ARAGON, Dr. Pulliam Attending Provider Ceci ARAGON, Dr. Pulliam Emergency Provider Summer ROAST MASTER-C, [place] Referring Provider Billy SANTOS, Dr. Dewitt Attending Provider Billy SANTOS, Dr. Dewitt Referring Provider [phone] Care Physician, No Primary Primary Care Provider Unavailable Dariana Eli CNM Attending Provider Care Physician, No Primary Primary Care Provider Unavailable Care Physician, No Primary Referring Provider Un available Dr. Raven Modi DO Other Provider Care Physician, No Primary Primary Care Unava ilable Care Physician, No Primary Referring Unava ilable Shell Curry Attending Unavailable Dariana Eli Attending Unavailable Care Physician, No Primary Primary Care Unava ilable Care Physician, No Primary Referring Unava ilable Raven Modi Attending Unavailabl e Care Physician, No Primary Primary Care Unava ilable Care Physician, No Primary Primary Care Unava ilable Care Physician, No Primary Referring Unava ilable [place] Wheeler NP Attending Unavailable Care Physician, No Primary Primary Care Unava ilable Care Physician, No Primary Referring Unava ilable Renate Handley Attending Unavailable LaminAdri tello Attending Unavailable Care Physician, No Primary Primary Care Unava ilable Raven Modi Attending Unavailabl e Care Physician, No Primary Primary Care Unava ilable Raven Modi Consulting Unavailabl e Raven Modi Referring Unavailabl e Care Physician, No Primary Primary Care Unava ilable Christiano Villafuerte Attending Unavailable Care Physician, No Primary Primary Care Unava ilable Shell Curry Referring Unavailable Shell Curry Attending Unavailable Care Physician, No Primary Primary Care Unava ilable Heraclio Ornelas Attending Unavailable Franco Ortiz Attending Unavailable Care Physician, No Primary Primary Care Unava ilable Care Physician, No Primary Primary Care Unava ilable Raven Modi Referring Unavailabl e Kim Espinoza, Raven Attending Unavailabl e Care Physician, No Primary Primary Care Unava ilable Nkechie Velalexandra, Raven Attending Unavailabl e Vande Velalexandra, Raven Referring Unavailabl e Care Physician, No Primary Primary Care Unava ilable Summer ROAST MASTER, [place] Referring Unavailable [place] ROAST MASTER, [place] Attending Unavailable Care Physician, No Primary Primary Care Unava ilable Billy, Renate Attending Unavailable Marcanthony, Renate Referring Unavailable Care Physician, No Primary Referring Unava ilable Care Physician, No Primary Primary Care Unava ilable Raven Modi Attending Unavailabl e Care Physician, No Primary Primary Care Unava ilable Care Physician, No Primary Referring Unava ilable Frank Zarate Attending Unavailable Nkechie Raven Espinoza Attending Unavailabl e Care Physician, No Primary Primary Care Unava ilable Care Physician, No Primary Referring Unava ilable Care Physician, No Primary Primary Care Unava ilable Care Physician, No Primary Referring Unava ilable Raven Modi Attending Unavailabl e Care Physician, No Primary Primary Care Provider Unavailable Care Physician, No Primary Referring Provider Un available Dr. Raven Modi DO Attending Provider Medications Current Medications Medication Drug Class(es) Dates Sig (Normalized) Sig (Original) [place] (Nk) (3 sources) Start: 08-30-2024 [place] (Nk) A ctive August 30, 2024 1:00am Start: 08-30-2024 [place] (Nk) A ctive August 30, 2024 12:00am Start: 08-15-2023 [place] (Nk) A ctive August 15, 2023 12:00am Completed/Discontinued Medications Medication Drug Class(es) Dates Sig (Normalized) Sig (Original) acetaminophen 325 mg oral tablet (13 sources) Start: 11-24-19 End: 12-22-19 take 1 tablet by mouth once as needed Acetaminophen (Tylenol) 325 mg tablet Discontinued 325 mg PO ONCE as needed November 23, 2021 12:00am December 21, 2021 2:44pm acetaminophen 325 mg / oxyCODONE hydrochloride 5 mg oral tablet (14 sources) Opioid Agonist Start: 11-07-19 End: 11-24-19 Oxycodone-Acetaminophe n (Percocet) 5-325 mg tablet Discontinued 1 {tbl} PO EVERY 6 HOURS as needed for pain 20 7 0 November 06, 2021 November 23, 2021 9:05am delivery delivered Encounter for delivery without indication cephalexin 500 mg oral capsule (14 sources) Cephalosporin Antibacterial Start: 04-21-20 End: 04-28-20 take 1 capsule by mouth twice daily Cephalexin 500 mg capsule Discontinued 500 mg PO TWICE A DAY 14 7 0 April 21, 2021 12:00am April 27, 2021 12:00am April 28, 2021 12:01am Fluad Quad (65yr up)(PF) 60 mcg (15 mcg x 4)/0.5mL IM syringe (flu vac (1 source) Start: 05-17-20 End: 05-17-20 inject 1 mL by intramuscular injection once Fluad Quad (65yr up)(PF) 60 mcg (15 mcg x 4)/0.5mL IM syringe (flu vac Discontinued 0.5 ML IM ONCE 0.5 May 17, 2021 9:19am May 17, 2021 9:52am 1 ml medroxyPROGESTERone acetate 150 mg/ml prefilled syringe (20 sources) Progestin Start: 12-22-19 End: 08-15-19 inject 150 mg by intramuscular injection every three months Medroxyprogesterone (Depo-Provera) 150 mg/mL syringe Discontinued 150 mg IM every 3 months 1 3 April 12, 2022 4:20pm August 15, 2023 6:52pm Start: 02-18-2019 End: 03-05-2021 inject 150 mg by intramuscular injection every three months Medroxyprogesterone 150 MG/ML syringe Discontinued 150 mg IM .[id number] February 18, 2019 12:00am March 05, 2021 9:13am Start: 02-18-2019 End: 03-05-2021 inject 150 mg by intramuscular injection every three months Medroxyprogesterone Discontinued 150 MG IM .[id number] February 17, 2019 11:00pm March 05, 2021 8:13am metoclopramide 10 mg oral tablet (8 sources) Dopamine-2 Receptor Antagonist Start: 10-28-2024 End: 12-25-2024 take 1 tablet by mouth every six hours as needed for nausea and vomiting Metoclopramide Hcl (Reglan) 10 mg tablet Discontinued 10 mg PO EVERY 6 HOURS as needed for nausea and vomiting 30 October 28, 2024 12:00am December 25, 2024 9:57am naproxen 500 mg oral tablet (20 sources) Nonsteroidal Anti-inflammatory Drug Start: 11-06-2021 End: 11-23-2021 take 1 tablet by mouth twice daily as needed for pain Naproxen 500 MG tablet Discontinued 500 mg PO TWICE DAILY NEEDED as needed for Pain 30 November 06, 2021 12:00am November 23, 2021 9:05am Start: 02-18-2019 End: 03-05-2021 take 1 tablet by mouth twice daily as needed Naproxen 500 MG tablet Discontinued 500 mg PO TWICE DAILY NEEDED February 18, 2019 12:00am March 05, 2021 9:13am ondansetron 4 mg disintegrating oral tablet (20 sources) Serotonin-3 Receptor Antagonist Start: 09-20-2024 End: 10-28-2024 take 1 tablet by mouth every four hours as needed for nausea and vomiting Ondansetron 4 mg tablet,disintegrating Discontinued 4 mg PO Q4H as needed for nausea and vomiting 60 2 September 20, 2024 12:00am October 28, 2024 12:16pm Start: 08-29-2024 End: 08-30-2024 take 1 tablet by mouth every six hours as needed for nausea and vomiting Ondansetron 4 mg tablet,disintegrating Discontinued 4 mg PO EVERY 6 HOURS as needed for nausea and vomiting 90 4 August 29, 2024 1:00am August 30, 2024 1:44am Nausea and vomiting during Vomiting of , unspecified Pnv No.175-Iron Fum-Folic Ac id (3 sources) Start: 06-14-2021 End: 08-23-2021 Pnv No.175-Iron Fum-Folic Ac id Discontinued TABLET PO June 14, 2021 12:58pm August 23, 2021 1:59pm Start: 06-14-2021 End: 08-23-2021 Pnv No.175-Iron Fum-Folic Ac id Discontinued TABLET PO June 14, 2021 12:00am August 23, 2021 12:59pm Start: 06-14-2021 End: 08-23-2021 Pnv No.175-Iron Fum-Folic Ac id Discontinued TABLET PO June 14, 2021 1:00am August 23, 2021 1:59pm Pnv No.175-Iron Fum-Folic Ac id 29-1 mg tablet (11 sources) Start: 06-14-2021 End: 08-23-2021 Pnv No.175-Iron Fum-Folic Ac id 29-1 mg tablet Discontinued {tbl} PO June 14, 2021 1:00am August 23, 2021 1:59pm Start: 06-14-2021 End: 08-23-2021 Pnv No.175-Iron Fum-Folic Ac id 29-1 mg tablet Discontinued {tbl} PO June 14, 2021 12:00am August 23, 2021 12:59pm promethazine hydrochloride 12.5 mg oral tablet (14 sources) Phenothiazine Start: 03-24-2021 End: 06-14-2021 take 1 tablet by mouth every six hours as needed for nausea and vomiting Promethazine 12.5 mg tablet Discontinued 12.5 mg PO EVERY 6 HOURS as needed for nausea and vomiting 90 4 March 24, 2021 12:00am June 14, 2021 12:58pm Problems Active Problems Problem Classification Problem Date Documented Date Episodic/Chronic Abdominal pain (3 sources) Pelvic and perineal pain; Translations: [Unspecified abdominal pain] Onset: 11-06-2024 Episodic Contraceptive and procreative management (2 sources) Patient encounter status; Translations: [Encounter for sterilization] 01-06-2025 Episodic Comment on above: title 19 signed 01/06 Early or threatened labor (16 sources) False labor at or after 37 completed weeks of gestation; Translations: [False labor at or after 37 completed weeks of gestation] Episodic distress and abnormal forces of labor (15 sources) Arrested active phase of labor; Translations: [Secondary uterine inertia] Episodic Genitourinary symptoms and ill-defined conditions (1 source) Dysuria; Translations: [Dysuria] Onset: 11-26-2024 Episodic Hemorrhage during ; abruptio placenta; placenta previa (19 sources) Vaginal bleeding complicating early ; Translations: [Hemorrhage in early , unspecified] Episodic Comment on above: spotting only , no c ervical dilation. pt reassured by ultrasound. miscarriage precautions discussed Inflammation; infection of eye (except that caused by tuberculosis or sexually transmitteddisease) (12 sources) Conjunctivitis; Translations: [Unspecified conjunctivitis] 08-19-2022 Episodic Menstrual disorders (13 sources) Menorrhagia; Translations: [Excessive and frequent menstruation with regular cycle] 04-22-2022 Chronic Nausea and vomiting (9 sources) Nausea and vomiting; Translations: [Nausea with vomiting, unspecified] Onset: 10-29-2024 11-02-2024 Episodic Open wounds of extremities (12 sources) Laceration of finger; Translations: [Laceration without foreign body of unspecified finger without damage to nail, initial encounter] Onset: 10-02-2024 06-24-2024 Episodic Other complications of ; puerperium affecting management of mother (2 sources) delivery - delivered; Translations: [Encounter for delivery without indication] Episodic Other complications of ; puerperium affecting management of mother (2 sources) Encounter for delivery without indication; Translations: [ delivery, without mention of indication, delivered, with or without mention of antepartum condition] Episodic Other complications of ; puerperium affecting management of mother (12 sources) Deliveries by ; Translations: [Encounter for delivery without indication] 06-01-2022 Episodic Comment on above: [facility] AOD CPD 6 cm failed IOL boy babak Other complications of (20 sources) Maternal obesity complicating , childbirth and the puerperium, antepartum; Translations: [Obesity complicating , unspecified trimester] 11-06-2021 Chronic Comment on above: BMI: 35.6; HgBA1C or dered w/NOB 1hr GCT at NOB/nl, e ncouraged healthy weight gain. US at 32 (normal growth and normal ALONDRA), if normal plan growth and weekly NSTs at 36 weeks Other complications of (19 sources) Obesity complicating , unspecified trimester; Translations: [Obesity complicating , childbirth, or the puerperium, unspecified as to episode of care or not applicable] Onset: 11-06-2024 Chronic Other complications of (2 sources) Obesity complicating , second trimester; Translations: [Obesity complicating , second trimester] Onset: 12-25-2024 Chronic Other complications of (15 sources) Urinary tract infection in ; Translations: [Unspecified infection of urinary tract in , unspecified trimester] 11-06-2021 Episodic Comment on above: rx for keflex sent t o pharmacy;repeat culture 05/17 neg Other complications of (16 sources) Unspecified infection of urinary tract in , unspecified trimester; Translations: [Infections of genitourinary tract in , unspecified as to episode of care or not applicable] Episodic Other complications of (20 sources) High risk ; Translations: [Supervision of high risk , unspecified, unspecified trimester] 08-09-2024 Episodic Comment on above: , LINDA 03/31/25, PC: Babak, : Max PRR, , LINDA 03/31, PC: Babak, : Max PRR, , LINDA 03/31 Girl, PC: Babak, : Max PRR, , LINDA 03/31 Girl, Rao PC: Babak, : Max Other complications of (20 sources) Pain in female pelvis; Translations: [Other specified related conditions, first trimester] 08-30-2024 Episodic Other complications of (2 sources) Other specified related conditions, unspecified trimester; Translations: [Other specified related conditions, unspecified trimester] Onset: 12-30-2024 Episodic Other complications of (2 sources) Supervision of high risk , unspecified, second trimester; Translations: [Supervision of high risk , unspecified, second trimester] Onset: 12-25-2024 Episodic Other complications of (1 source) Supervision of high risk , unspecified, unspecified trimester; Translations: [Supervision of high risk , unspecified, unspecified trimester] Onset: 10-30-2024 Episodic Other female genital disorders (13 sources) Heavy episode of vaginal bleeding; Translations: [Abnormal uterine and vaginal bleeding, unspecified] 04-22-2022 Chronic Other nutritional; endocrine; and metabolic disorders (15 sources) Medium-chain acyl-coenzyme A dehydrogenase deficiency; 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 c arrier reviewed. ntd screen neg. Anatomy US normal. GBS neg. IOL 11/04 @ 7pm Discussed genetic/ca rrier testing - prior carrier done. Panorama low risk-female. Discussed genetic/ca rrier testing - prior carrier done. Panorama low risk-female. unremarkable anatomy, consistent dates Polyhydramnios and other problems of amniotic cavity (15 sources) Chorioamnionitis; Translations: [Chorioamnionitis, unspecified trimester, not applicable or unspecified] Episodic Comment on above: amp gent clinda x 24 hour , diagnosed immediatley PP Previous (2 sources) Maternal care for unspecified type scar from previous delivery; Translations: [Maternal care for unspecified type scar from previous delivery] Onset: 12-25-2024 Episodic Residual codes; unclassified (20 sources) Family history of autism; Translations: [Family history of other mental and behavioral disorders] 08-09-2024 Episodic Comment on above: FOB sister Residual codes; unclassified (2 sources) Family history of other mental and behavioral disorders; Translations: [Family history of other mental and behavioral disorders] Onset: 12-25-2024 Episodic Residual codes; unclassified (2 sources) 26 weeks gestation of ; Translations: [26 weeks gestation of ] Onset: 12-25-2024 Episodic Residual codes; unclassified (1 source) 25 weeks gestation of ; Translations: [25 weeks gestation of ] Onset: 12-20-2024 Episodic Residual codes; unclassified (1 source) 21 weeks gestation of ; Translations: [21 weeks gestation of ] Onset: 11-21-2024 Episodic Residual codes; unclassified (1 source) 17 weeks gestation of ; Translations: [17 weeks gestation of ] Onset: 10-30-2024 Episodic Sprains and strains (15 sources) Strain of muscle of lower limb; Translations: [Strain of unspecified muscle(s) and tendon(s) at lower leg level, right leg, initial encounter] 02-19-2019 Episodic Past or Other Problems Problem Classification Problem Date Documented Da te Episodic/Chronic Other complications of (1 source) Vomiting of , unspecified; Translations: [Vomiting of , unspecified] Onset: 08-30-2024 Episodic Residual codes; unclassified (1 source) 9 weeks gestation of ; Translations: [9 weeks gestation of ] Onset: 08-30-2024 Episodic Results Test Name Value Interpretation Reference Range Facil ity Genital Culture Comprehensiv shanon 12-28-2024 VAC Reason for Exam: pelvic pain Normal vaginal josh isolated. No yeast, Gardnerella, Neisseria or beta-hemolytic Streptococcus isolated. Normal [facility] Comment on above: Performed By: #### M 100.2000, M100.2200, M100.3200 #### [facility] [address] [place], [address] Urine Cultureon 12-27-2024 URC Mixed Gram Positive Organisms [place] Count 11,000-25,000 MIXC Mixed contaminants. Submit a new specimen if indicated. Normal [facility] Comment on above: Performed By: #### M 100.2000, M100.2200, M100.3200 #### [facility] [address] [place], [address] Genital cultureOrdered By: Miracle Espinoza on 12-25-2024 Source specific culture Neisseria or beta-hemolytic Streptococcus isolated. [facility] Gram Stainon 12-25-2024 GS Reason for Exam: pelvic pain Gram Stain 4+ Gram positive rods 2+ White Blood Cells No Gram negative diplococci Score = 0 Interpretation: 0-3 Normal, 4-6 Intermediate, 7-10 Positive BV Normal [facility] Comment on above: Performed By: #### M 100.2000, M100.2200, M100.3200 #### [facility] [address] [place], [address] Gram stainOrdered By: Patricia Espinoza on 12-25-2024 Microscopic observation Gram stain Nom (Unsp spec) [facility] Kidney and Bladderon 025 Kidney and Bladder [facility] Imaging Services [address] [place], [place] [address] Kidney and Bladder MR#: [id number] Acct: [id number] Name: QUAN RODGERS KELTON Rep #: [id number] : 2000 F 24 From: Guzman Kidd MD PCP: Care Physician,No Primary Status: REG CLI Study: Kidney and Bladder Date of Exam: 12/25/24 Exam# [id number] Ordering Dr: Raven Modi DO PROCEDURE: KIDNEY AND BLADDER 12/25/2024 REASON FOR EXAM: PELVIC PAIN TECHNIQUE: KIDNEY AND BLADDER COMPARISON: None FINDINGS: Right kidney measures 11.7 x 6.9 x 6.1 cm. No hydronephrosis, calculi or mass. Renal cortex measures 2.3 cm Incidental note is made of a prominent renal pelvis Left kidney measures 11.6 x 5.3 x 6.4 cm. No hydronephrosis calculi or mass. 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 Reading Location: [id number] CC: Dr. Raven Modi DO; No Primary Care Physician Monotype Keyboard Operator: Signed Normal [facility] - Chemistry and C hemistry - challengeOrdered By: Raven Espinoza on 12-25-2024 Bilirubin Ql (U) Negative [facility] Glucose Ql (U) Negative [facility] Ketones Ql (U) Negative [facility] pH (U) 5.0 [pH] [facility] Specific gravity (U) [Rel density] 1.030 [facility] Urobilinogen (U) [Mass/Vol] 0.3271102 mg/dL [facility] - Hematology and Cell countsOrdered By: Raven Espinoza on 12-25-2024 Hemoglobin Ql (U) Negative [facility] - Specimen inform ationOrdered By: Raven Espinoza on 12-25-2024 Clarity (U) Cloudy [facility] Color (U) Straw [facility] - UrinalysisOrder ed By: Raven Espinoza on 12-25-2024 Nitrite Ql (U) Negative [facility] Protein Ql (U) 1+ [facility] No Panel InformationOrdered By: Raven Espinoza on 12-25-2024 Urine Leukocytes Negatve [facility] OB Triage Physician Noteon 0 12-25-2024 OB Triage Physician Note [facility] Medical Records Department [address] [place] [address] OB Triage Physician Note 12/25/242022 MR#: [id number] Acct: [id number] Name: QUAN RODGERS KELTON Rep #: [id number] : 2000 24 From: Raven Modi DO PCP: Care Physician,No Primary Status:DEP CLI Y Location: [facility] VISHAL, is a 24 y/o @ 26 weeks 2 dasy who presents tto L D with the complaint of 10/10 left lower quadrant pain. She was sent in from my office after she was examined and found to have a closed cervix. She denies fevers and chills. No loss of fluid, vaginal bleeding, or decreased movement. She denies trauma to the abdomen, recent intercourse, or any other unusual activity within the last 24 hours. She does not think she has drank a lot of water today. 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[employer] current occupational exposures/hazards: No pets and animals: No history of recent travel: No sexually active: Yes Smoking Status: Former smoker second hand exposure: No alcohol intake: never substance use type: does not use well-balanced diet: daily or most days caffeine: Yes Type: carbonated beverages eating out: rarely or never during the past year weight has: remained stable what type of physical activity do you participate in: walking frequency: 1-2 times per week duration: < 15 minutes/day aly/buddhist: None seatbelt use: always do you feel safe at home: Yes additional social history: : Adolph History 2 Elective abortions Hx Para 1 Spontaneous abortions Hx # Term Pregnancies 1 Ectopic pregnancies Hx # Pregnancies Multiple births # of living children 1 Past Pregnancies Del. Date Name GA/Weeks Outcome Route Bth Weight Infant Gen Labor Lgth Anesthesia Del Locatn Provider FOB 11/06/21 Babak 39 live - full term 8lbs 14oz Male epidural [facility] Renate Handley Max Delivery Date: 11/06/21 Last Updated by: Adri Kimble, RN LTCS SM AOD 6 cm boy Babak IOL 41 Visit Details Expected Delivery Route/Plan Repeat C/S with Plans Covid status: [] Flu vaccine: [] Tdap vaccine: [] Rhogam: [] LARC form signed: [] Problem list reviewed and updated with the most current plan of care details and appropriate orders placed. Relevant counseling for the gestational age provided. Continue routine care and follow up unless otherwise noted in visit notes/problem list details OB Flowsheet Initial Weight: 259 lb Date -???-???-???-???-? ??-???-???-???-??? -???-???-???- EGA Weight BP Urine Prot -???-???-???-???-? ??-???-???-???-??? -???-???-???- Glucose FHR FuHt Pres Dilation -???-???-???-???-? ??-???-???-???-??? -???-???-???- Effaced St Visit Note 08/29/24 -???-???-???-???-? ??-???-???-???-??? -???-???-???- 9w 3d 259 lb 6 oz (+6 oz) 121/78 -???-???-???-???-? ??-???-???-???-??? -???-???-???- 168 -???-???-???-???-? ??-???-???-???-??? -???-???-???- KW- CRL cons with dates. Declines NIPT. requesting 39 week RC/S 09/04/24 -???-???-???-???-? ??-???-???-???-??? -???-???-???- 10w 2d 255 lb 4 oz (-3 lb 12 oz) 113/73 Negative -???-???-???-???-? ??-???-???-???-??? -???-???-???- Negative 158 -???-???-???-???-? ??-???-???-???-??? -???-???-???- JV- follow u p ER visit today. She possibly passed a kidney stone and feeling better until she had to lift someone heavy at work. FHT seen today on bedside scan. wants NIPT now. plans to return to do this. work restriction letter given. if pain returns will order a KUB 09/26/24 -???-???-???-???-? ??-???-???-???-??? -???-???-???- 13w 3d 258 lb (-16 oz) 123/73 Negative -???-???-???-???-? ??-???-???-???-??? -???-???-???- Negative 155 -???-???-???-???-? ??-???-???-???-??? -???-???-???- JV- no compl aints. is going to medicaid office today and will let us know if approved. if approved will order mfm ultrasound and NIPT with new ob labs. 10/21/24 -???-???-???-???-? ??-???-???-???-??? -???-???-???- 17w 0d 258 lb 2 oz (more content not included)... Normal [facility] Board Certified Behavioral Analyst Office Visit Reporton 12-25-2024 Board Certified Behavioral Analyst Office Visit Report [facility] [address], [address] [place] [address] OFFICE VISIT Date of Service: 12/25/24 MR#: [id number] Acct: [id number] Name: QUAN RODGERS KELTON Rep #: [id number] : 2000 Provider: Dr. Raven Brooks, Age/Sex: 24/F [place] [facility] Status: Signed Intake Vital Signs 12/20/24 08:29 12/25/24 08:57 12/25/24 08:58 Height 5 ft 11 in 5 ft 11 in 5 ft 11 in Weight: 262 lb 259 lb 4 oz BMI 36.5 36.1 BP 114/78 117/77 Intake Visit Reasons: OB, pelvic pain Classification Analyst Required: No Is patient in pain?: No Allergies No Known Allergies Allergy (Verified 12/25/24 08:57) Medications ???Medication ???Instructions ???Recorded ???Confirmed ???Type metoclopramide HCl 10 mg tablet 10 mg PO Q6H PRN nausea and 12/25/24 Rx (Reglan) vomiting #30 tabs Last Menstrual Period: 06/24/24 Zika: Zika virus screening: Negative : No PFSH PFS Medical History Chorioamnionitis delivery delivered Surgical History History of section History of surgery Social History adopted: No household members: children and other details: mom housing: house number of children: 1 current occupational status: employed 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[employer] current occupational exposures/hazards: No pets and animals: No history of recent travel: No sexually active: Yes Smoking Status: Former smoker second hand exposure: No alcohol intake: never substance use type: does not use well-balanced diet: daily or most days caffeine: Yes Type: carbonated beverages eating out: rarely or never during the past year weight has: remained stable what type of physical activity do you participate in: walking frequency: 1-2 times per week duration: < 15 minutes/day aly/buddhist: None seatbelt use: always do you feel safe at home: Yes additional social history: : Adolph History 2 Elective abortions Hx Para 1 Spontaneous abortions Hx # Term Pregnancies 1 Ectopic pregnancies Hx # Pregnancies Multiple births # of living children 1 Past Pregnancies Del. Date Name GA/Weeks Outcome Route Bth Weight Infant Gen Labor Lgth Anesthesia Del Locatn Provider FOB 11/06/21 Babak 39 live - full term 8lbs 14oz Male epidural [facility] Renate Farfan Delivery Date: 11/06/21 Last Updated by: Adri Kimble, RN LTCS AOD 6 cm boy Babak IOL 41 HPI OB, pelvic pain Details: QUAN RODGERS is a 24 year old who presents for routine OB visit. OB Visit LINDA Calculator Estimated Delivery Date Method Current WG Current Estimate 03/31/25 LMP (Certain) 26w 2d Other Estimates 03/30/25 Ultrasound #1 26w 3d Expected Delivery Route/Plan Repeat C/S with Specific Issue/Plans Covid status: [] Flu vaccine: [] Tdap vaccine: [] Rhogam: [] LARC form signed: [] Problem list reviewed and updated with the most current plan of care details and appropriate orders placed. Relevant counseling for the gestational age provided. Continue routine care and follow up unless otherwise noted in visit notes/problem list details Initial Weight: 259 lb Date -???-???-???-???-? ??-???-???-???-??? -???-???-???- EGA Weight BP Urine Prot -???-???-???-???-? ??-???-???-???-??? -???-???-???- Glucose FHR FuHt Pres Dilation -???-???-???-???-? ??-???-???-???-??? -???-???-???- Effaced St Visit Note 08/29/24 -???-???-???-???-? ??-???-???-???-??? -???-???-???- 9w 3d 259 lb 6 oz (+6 oz) 121/78 -???-???-???-???-? ??-???-???-???-??? -???-???-???- 168 -???-???-???-???-? ??-???-???-???-??? -???-???-???- KW- CRL cons with dates. Declines NIPT. requesting 39 week RC/S 09/04/24 -???-???-???-???-? ??-???-???-???-??? -???-???-???- 10w 2d 255 lb 4 oz (-3 lb 12 oz) 113/73 Negative -???-???-???-???-? ??-???-???-???-??? -???-???-???- Negative 158 -???-???-???-???-? ??-???-???-???-??? -???-???-???- JV- follow u p ER visit today. She possibly passed a kidney stone and feeling better until she had to lift someone heavy at work. FHT seen today on bedside scan. wants NIPT now. plans to return to do this. work restriction letter given. if pain returns will order a KUB 09/26/24 -???-???-???-???-? ??-???-???-???-??? -???-???-???- 13w 3d 258 lb (-16 oz) 123/73 Negative -???-???-???-???-? ??-???-???-???-??? -???-???-???- Negative 155 -???-???-???-???-? ??-???-???-???-??? -???-???-???- JV- no compl aints. is going to medicaid office today and will let us know if approved. if approved will order mfm ultrasound and NIPT with new ob labs. (more content not included)... Normal [facility] Transvaginal w/Preg USon Transvaginal w/Preg US [facility] Imaging Services [address] [place] [address] Transvaginal w/Preg US MR#: [id number] Acct: [id number] Name: QUAN RODGERS KELTON Rep #: [id number] : 2000 F 24 From: Guzman Kidd MD PCP: Care Physician,No Primary Status: REG CLI Study: Transvaginal w/Preg US Date of Exam: 12/25/24 Exam# [id number] Ordering Dr: Raven Modi DO PROCEDURE: TRANSVAGINAL W/PREG US 12/25/2024 REASON FOR EXAM: labor TECHNIQUE: TRANSVAGINAL W/PREG US COMPARISON: 11/12/2024 FINDINGS Single live intrauterine with heart rate noted at 131 beats per minute. Presentation is cephalic. Placenta is anterior not low lying. Cervical length measures 4.7 cm, cervix closed Left ovary not identified, no free fluid in the cul de sac age measures 26 weeks, 2 days for an LINDA of 03/31/2025. US/Transvaginal w/Preg US IMPRESSION: Single live intrauterine at 26 weeks 2 days with LINDA of 03/31/2025. Heart rate of 131 beats per minute. Left ovary not evaluated Reading Location: [id number] CC: Dr. Raven Modi DO; No Primary Care Physician Monotype Keyboard Operator: Signed Normal [facility] Urine cultureOrdered By: Sophia Espinoza on 12-25-2024 Bacteria identified Cx Nom (U) Positive Abnormal [facility] Board Certified Behavioral Analyst Office Visit Reporton 12-20-2024 Board Certified Behavioral Analyst Office Visit Report [facility] [address], [address] [place] [address] OFFICE VISIT Date of Service: 12/20/24 MR#: [id number] Acct: [id number] Name: QUAN RODGERS KELTON Rep #: [id number] : 2000 Provider: KEO avalos Age/Sex: 24/F Location: [facility] [place] Status: Signed Intake Vital Signs 09/26/24 13:48 11/21/24 10:42 12/20/24 08:29 Height 5 ft 11 in 5 ft 11 in 5 ft 11 in Weight: 262 lb BMI 36.5 BP 114/78 Intake Visit Reasons: 25wk ob Chief Complaint: 25wk OB Classification Analyst Required: No Is patient in pain?: No Allergies No Known Allergies Allergy (Verified 12/20/24 08:28) Medications ???Medication ???Instructions ???Recorded ???Confirmed ???Type metoclopramide HCl 10 mg tablet 10 mg PO Q6H PRN nausea and 12/20/24 Rx (Reglan) vomiting #30 tabs Last Menstrual Period: 06/24/24 : No PFSH PFSH Medical History Chorioamnionitis delivery delivered Surgical History History of section History of surgery Social History adopted: No household members: children and other details: mom housing: house number of children: 1 current occupational status: employed 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[employer] current occupational exposures/hazards: No pets and animals: No history of recent travel: No sexually active: Yes Smoking Status: Former smoker second hand exposure: No alcohol intake: never substance use type: does not use well-balanced diet: daily or most days caffeine: Yes Type: carbonated beverages eating out: rarely or never during the past year weight has: remained stable what type of physical activity do you participate in: walking frequency: 1-2 times per week duration: < 15 minutes/day aly/buddhist: None seatbelt use: always do you feel safe at home: Yes additional social history: : Max History 2 Elective abortions Hx Para 1 Spontaneous abortions Hx # Term Pregnancies 1 Ectopic pregnancies Hx # Pregnancies Multiple births # of living children 1 Past Pregnancies Del. Date Name GA/Weeks Outcome Route Bth Weight Gen Labor Lgth Anesthesia Del Locatn Provider FOB 11/06/21 Babak 39 live - full term 8lbs 14oz Male epidural [facility] Renate Farfan Delivery Date: 11/06/21 Last Updated by: Adri Kimble, RN LTCS AOD 6 cm boy Babak IOL 41 HPI 25wk ob Details: QUAN RODGERS is a 24 year old who presents for routine OB visit. OB Visit LINDA Calculator Estimated Delivery Date Method Current WG Current Estimate 03/31/25 LMP (Certain) 25w 4d Other Estimates 03/30/25 Ultrasound #1 25w 5d Expected Delivery Route/Plan Repeat C/S with Specific Issue/Plans Covid status: [] Flu vaccine: [] Tdap vaccine: [] Rhogam: [] LARC form signed: [] Problem list reviewed and updated with the most current plan of care details and appropriate orders placed. Relevant counseling for the gestational age provided. Continue routine care and follow up unless otherwise noted in visit notes/problem list details Initial Weight: 259 lb Date -???-???-???-???-? ??-???-???-???-??? -???-???-???- EGA Weight BP Urine Prot -???-???-???-???-? ??-???-???-???-??? -???-???-???- Glucose FHR FuHt Pres Dilation -???-???-???-???-? ??-???-???-???-??? -???-???-???- Effaced St Visit Note 08/29/24 -???-???-???-???-? ??-???-???-???-??? -???-???-???- 9w 3d 259 lb 6 oz (+6 oz) 121/78 -???-???-???-???-? ??-???-???-???-??? -???-???-???- 168 -???-???-???-???-? ??-???-???-???-??? -???-???-???- KW- CRL cons with dates. Declines NIPT. requesting 39 week RC/S 09/04/24 -???-???-???-???-? ??-???-???-???-??? -???-???-???- 10w 2d 255 lb 4 oz (-3 lb 12 oz) 113/73 Negative -???-???-???-???-? ??-???-???-???-??? -???-???-???- Negative 158 -???-???-???-???-? ??-???-???-???-??? -???-???-???- JV- follow u p ER visit today. She possibly passed a kidney stone and feeling better until she had to lift someone heavy at work. FHT seen today on bedside scan. wants NIPT now. plans to return to do this. work restriction letter given. if pain returns will order a KUB 09/26/24 -???-???-???-???-? ??-???-???-???-??? -???-???-???- 13w 3d 258 lb (-16 oz) 123/73 Negative -???-???-???-???-? ??-???-???-???-??? -???-???-???- Negative 155 -???-???-???-???-? ??-???-???-???-??? -???-???-???- JV- no compl aints. is going to medicaid office today and will let us know if approved. if approved will order mfm ultrasound and NIPT with new ob labs. 10/21/24 -???-???-???-???-? ??-???-???-???-??? -???-???-???- 17w 0d 25 (more content not included)... Normal [facility] Urine Cultureon 11-23-2024 URC Below infection level. Mixed Gram Positive Organisms [place] Count <1000 MIXC Mixed contaminants. Submit a new specimen if indicated. Normal [facility] Comment on above: Performed By: #### M 100.2200 #### [facility] [address] [place], [place], [id number] Laboratory - Chemistry and C hemistry - challengeOrdered By: Renate Handley on 11-21-2024 Bilirubin Ql (U) Small (1+) [facility] Glucose Ql (U) Negative [facility] Ketones Ql (U) Negative [facility] pH (U) 6.0 [pH] [facility] Specific gravity (U) [Rel density] 1.030 [facility] Urobilinogen (U) [Mass/Vol] 0.2626881 mg/dL [facility] Laboratory - Hematology and Cell countsOrdered By: Renate Handley on 11-21-2024 Hemoglobin Ql (U) Negative [facility] Laboratory - Specimen inform ationOrdered By: Renate Handley on 11-21-2024 Clarity (U) Clear [facility] Color (U) Dk Yellow [facility] Laboratory - UrinalysisOrder ed By: Renate Handley on 11-21-2024 Nitrite Ql (U) Negative [facility] Protein Ql (U) Negative [facility] No Panel InformationOrdered By: Renate Handley on 11-21-2024 Urine Leukocytes Negatve [facility] Urine Non-Hemolyzed Blood [facility] Board Certified Behavioral Analyst Office Visit Reporton 11-21-2024 Board Certified Behavioral Analyst Office Visit Report [address], [address] [place] [address] OFFICE VISIT Date of Service: 11/21/24 MR#: [id number] Acct: [id number] Name: QUAN RODGERS KELTON Rep #: [id number] : 2000 Provider: Dr. Renate yi MD Age/Sex: 24/F Location: [facility] [place] Status: Signed Intake Vital Signs 09/26/24 13:48 10/25/24 18:55 11/21/24 10:42 Height 5 ft 11 in 5 ft 11 in 5 ft 11 in Weight: 259 lb BMI 36.1 BP 113/68 Intake Visit Reasons: 21wk ob Classification Analyst Required: No Is patient in pain?: No Allergies No Known Allergies Allergy (Verified 11/21/24 10:45) Medications ???Medication ???Instructions ???Recorded ???Confirmed ???Type metoclopramide HCl 10 mg tablet 10 mg PO Q6H PRN nausea and 11/21/24 Rx (Reglan) vomiting #30 tabs Last Menstrual Period: 06/24/24 Zika: Zika virus screening: Negative : No PFSH PFSH Medical History Chorioamnionitis delivery delivered Surgical History History of section History of surgery Social History adopted: No household members: children and other details: mom housing: house number of children: 1 current occupational status: employed 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[employer] current occupational exposures/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: No pets and animals: No history of recent travel: No sexually active: Yes Smoking Status: Former smoker second hand exposure: No alcohol intake: never substance use type: does not use well-balanced diet: daily or most days caffeine: Yes Type: carbonated beverages eating out: rarely or never during the past year weight has: remained stable what type of physical activity do you participate in: walking frequency: 1-2 times per week duration: < 15 minutes/day aly/buddhist: None seatbelt use: always do you feel safe at home: Yes additional social history: : Max History 2 Elective abortions Hx Para 1 Spontaneous abortions Hx # Term Pregnancies 1 Ectopic pregnancies Hx # Pregnancies Multiple births # of living children 1 Past Pregnancies Del. Date Name GA/Weeks Outcome Route Bth Weight Gen Labor Lgth Anesthesia Del Locatn Provider FOB 11/06/21 Babak 39 live - full term 8lbs 14oz Male epidural [facility] Renate Farfan Delivery Date: 11/06/21 Last Updated by: Adri Kimble, RN LTCS SM AOD 6 cm boy Babak IOL 41 HPI 21wk ob Details: QUAN RODGERS is a 24 year old who presents for routine OB visit. OB Visit LINDA Calculator Estimated Delivery Date Method Current WG Current Estimate 03/31/25 LMP (Certain) 21w 3d Other Estimates 03/30/25 Ultrasound #1 21w 4d Expected Delivery Route/Plan Repeat C/S with SM Specific Issue/Plans Covid status: [] Flu vaccine: [] Tdap vaccine: [] Rhogam: [] LARC form signed: [] Problem list reviewed and updated with the most current plan of care details and appropriate orders placed. Relevant counseling for the gestational age provided. Continue routine care and follow up unless otherwise noted in visit notes/problem list details Initial Weight: 259 lb Date -???-???-???-???-? ??-???-???-???-??? -???-???-???- EGA Weight BP Urine Prot -???-???-???-???-? ??-???-???-???-??? -???-???-???- Glucose FHR FuHt Pres Dilation -???-???-???-???-? ??-???-???-???-??? -???-???-???- Effaced St Visit Note 08/29/24 -???-???-???-???-? ??-???-???-???-??? -???-???-???- 9w 3d 259 lb 6 oz (+6 oz) 121/78 -???-???-???-???-? ??-???-???-???-??? -???-???-???- 168 -???-???-???-???-? ??-???-???-???-??? -???-???-???- KW- CRL cons with dates. Declines NIPT. requesting 39 week RC/S 09/04/24 -???-???-???-???-? ??-???-???-???-??? -???-???-???- 10w 2d 255 lb 4 oz (-3 lb 12 oz) 113/73 Negative -???-???-???-???-? ??-???-???-???-??? -???-???-???- Negative 158 -???-???-???-???-? ??-???-???-???-??? -???-???-???- JV- follow u p ER visit today. She possibly passed a kidney stone and feeling better until she had to lift someone heavy at work. FHT seen today on bedside scan. wants NIPT now. plans to return to do this. work restriction letter given. if pain returns will order a KUB 09/26/24 -???-???-???-???-? ??-???-???-???-??? -???-???-???- 13w 3d 258 lb (-16 oz) 123/73 Negative -???-???-???-???-? ??-???-???-???-??? -???-???-???- Negative 155 -???-???-???-???-? ??-???-???-???-??? -???-???-???- JV- no compl aints. is going to medicaid office today and will let us know if approved. if approved will order mfm ultrasound and NIPT with new ob labs. 10/21/24 -???-???-???-???-? ??-???-???-???- (more content not included)... Normal [facility] Urine cultureOrdered By: Eric Handley on 11-21-2024 Bacteria identified Cx Nom (U) Positive Abnormal [facility] OB Anatomy w/ Transvaginalon 11-12-2024 OB Anatomy w/ Transvaginal [facility] Imaging Services [address] [place], [place] [address] OB Anatomy w/ Transvaginal MR#: [id number] Acct: [id number] Name: QUAN RODGERS KELTON Rep #: [id number] : 2000 F 24 From: Royce krueger MD PCP: Care Physician,No Primary Status: REG CLI Study: OB Anatomy w/ Transvaginal Date of Exam: 11/12 Exam# [id number] Ordering Dr: Geneva Wheeler ROAST MASTER ROAST MASTER -C PROCEDURE: OB ANATOMY W/ TRANSVAGINAL 11/12/2024 REASON FOR EXAM: ANATOMY SCAN TECHNIQUE: High resolution obstetric ultrasound performed using a 2D transducer. Standard views obtained, including biometry, anatomy survey, and Doppler studies. COMPARISON: Prior study dated August 30, 2024. FINDINGS LMP: June 24, 2024. Number: 1 Position: Vertex Placental Position: Anterior and not low-lying. Placental Abnormalities: None DIMENSIONS: Biparietal Diameter: 4.2 cm: 18 weeks and 4 days: 4 percentile/ Head Circumference: 16.5 cm: 19 weeks and 2 days: 9 percentile/ Abdominal Circumference: 14.6 cm: 19 weeks and 6 days: 37 percentile/ Femur Length: 3.3 cm: 20 weeks and 1 day: 43rd percentile/ ESTIMATED WEIGHT: 317 g plus/-48 g ESTIMATED WEIGHT PERCENTILE (24+ weeks): 30 ESTIMATED GESTATIONAL AGE: Baseline: 20 weeks and 1 day By Ultrasound: 19 weeks and 4 days ESTIMATED DATE OF DELIVERY: Baseline: March 31, 2025 By Ultrasound: April 04, 2025 BIOPHYSICAL ASSESSMENT: Amniotic Fluid Volume: 5.5 cm Amniotic Fluid Index: Within normal limits. (8-24 cm normal range) Cardiac Motion: 131 beats per minute (average) Trunk and Limb Motion: Present. MATERNAL ANATOMY: Adnexa: Both maternal ovaries are visualized and unremarkable. Cervical Length (if measured): 4.4 cm ANATOMY: Spine: Unremarkable Cranium: Unremarkable Cerebellum: Unremarkable Cisterna Magna: Unremarkable Cavum Septum Pellucidi: Unremarkable Lateral Ventricles: Unremarkable Choroid Plexus: Unremarkable Midline Falx: Unremarkable Nuchal Fold: Unremarkable Upper Lip: Unremarkable Heart: Unremarkable Ventricular Outflow Tracts: Unremarkable Stomach: Unremarkable Kidneys: Unremarkable Bladder: Unremarkable Umbilical Cord: Unremarkable unremarkable US/OB Anatomy w/ Transvaginal IMPRESSION: Single live intrauterine gestation with a mean gestational age of 19 weeks and 4 days. Reading Location: [place] [address] CC: DANIEL Wheeler; No Primary Care Physician Monotype Keyboard Operator: Signed Normal [facility] Urine Cultureon 10-27-2024 URC Mixed Gram Positive Organisms [place] Count 25,000-50,000 MIXC Mixed contaminants. Submit a new specimen if indicated. Normal [facility] Comment on above: Performed By: #### M 100.2200 ####[facility] [id number] [place], [address] Bilirubin Test strip Ql (U)O rdered By: Heraclio Ornelas on 10-25-2024 Bilirubin Ql (U) 1 mg/dL High Negative [facility] Comment on above: COLOR OF URINE MAY A FFECT DIPSTICK RESULTS. Emergency Department Summary on 10-25-2024 Emergency Department Summary [facility] Medical Records Department [address] [place] [address] Emergency Department Summary 10/25/24 MR#: [id number] Acct: [id number] Name: QUAN RODGERS KELTON Rep #: [id number] : 2000 24 From: Heraclio Ornelas DO PCP: Care Physician,No Primary Status:DEP ER Location: ED Patient was seen and examined with physician assistant pastry chef All components of the history and physical confirmed and agreed. History of present illness and physical exam: Patient is a 24-year-old female currently 18 weeks G 2P1 who presents to the emerged part with a chief complaint of nausea vomiting not able to keep anything down. Patient states that she has Zofran ODT at home but notes that this morning she started vomiting and tried the Zofran and had no improvement. States that she feels hungry and has been able to keep water down but anytime she tries to eat anything she immediately vomits this up. Patient denies abdominal pain, vaginal spotting or bleeding, vaginal discharge. Patient denies any urinary symptoms. Patient denies any sick contacts. Review of systems: Noted above Physical exam: Agree with above MDM: Patient is a 24-year-old female who presented to the emergency department chief complaint nausea vomiting setting . On the differential diagnosis includes but not to COVID, flu, RSV, other viral gastroenteritis, vomiting and . Once workup is obtained reviewed she will be reevaluated. Patient was given Reglan. On reevaluation patient she is feeling much better and was able to eat here in the emergency department. She has been drinking water all day long and keeping this down with any vomiting. Urinalysis had 1+ bacteria was sent for culture. She was recommended follow-up with the OB team in the outpatient setting return with worsening symptoms or concerns. She is agreeable to plan all question concerns answered she is discharged home in stable condition. Final impression: Nausea vomiting Disposition: Patient will be discharged home in stable condition Supervising attending attestation: Heraclio Ornelas D.O. [facility] History of Present Illness Chief Complaint: Nausea/Vomiting Narrative Narrative: 24-year-old female is approximately 18 weeks presenting with nausea and vomiting. She states she has daily nausea and takes Zofran ODT usually once a day but today she vomited a couple times and tried Zofran x 3 doses without improvement. She can keep down water but cannot keep down food and states she is very hungry. She has no abdominal pain or bleeding. No urinary symptoms. 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[employer] current occupational exposures/hazards: No pets and animals: No history of recent travel: No sexually active: Yes Smoking Status: Former smoker second hand exposure: No alcohol intake: never substance use type: does not use well-balanced diet: daily or most days caffeine: Yes Type: carbonated beverages eating out: rarely or never during the past year weight has: remained stable what type of physical activity do you participate in: walking frequency: 1-2 times per week duration: < 15 minutes/day aly/buddhist: None seatbelt use: always do you feel safe at home: Yes additional social history: : Adolph NOBLE ED ROS Narrative Constitutional: Negative for fever, chills, malaise. GI: Positive for nausea, vomiting. Negative for abdominal pain, diarrhea, constipation, melena, hematochezia. : Negative for dysuria. EXAM Physical Exam Narrative Exam Narrative: CONST: Patient sitting in no acute distress. EYES: Normal inspection. NECK: Normal inspection. RESP: No respiratory distress, CTAB. CVS: Regular rate and rhythm, no murmur, no gallop. ABD: Soft and nontender, no guarding or rebound, nondistended. SKIN: Color normal, no rash, warm, dry, intact. EXTREMITIES: Normal appearance, no pedal edema. NEURO: Alert and answering questions appropriately. PSYCH: Normal affect. Const Vital Signs: 10/25/24 18:55 Temper (more content not included)... Normal [facility] Ketones Test strip Ql (U)Ord ered By: Heraclio Ornelas on 10-25-2024 Ketones Ql (U) 5 mg/dl High Negative [facility] Microscopic analysis of urin e for red blood cells (RBC)Ordered By: Heraclio Ornelas on 10-25-2024 Microscopic analysis of urine for red blood cells (RBC) 0-5 SEEN /hpf 0-5 [facility] Mucus LM Ql (Urine sed)Order ed By: Heraclio Ornelas on 10-25-2024 Mucus Ql (Urine sed) 1+ /hpf [facility] Nitrite Test strip Ql (U)Ord ered By: Heraclio Ornelas on 10-25-2024 Nitrite Ql (U) Negative Negative [facility] Protein Test strip Ql (U)Ord ered By: Heraclio Ornelas on 10-25-2024 Protein Ql (U) 30 mg/dl High Negative [facility] Squamous epithelial cells de tection in urine sediment by light microscopyOrdered By: Heraclio Ornelas on 10-25-2024 Epithelial cells.squamous LM Ql (Urine sed) 0-5 SEEN /hpf 5-10 [facility] Urinalysis, Completeon 10-25 Mucus Ql (Urine sed) 1+ /hpf Normal [facility] Comment on above: Order Comment: MICHAEL CTOR TO SPECIFY Performed By: #### L 400.0001 ####[facility] [address] [place], [address] BACTERIA 1+ /hpf Normal None Seen [facility] Comment on above: Order Comment: MICHAEL CTOR TO SPECIFY Performed By: #### L 400.0001 ####[facility] [address] [place], [address] EPI,SQUAMOUS 0-5 SEEN Normal 5-10 [facility] Comment on above: Order Comment: MICHAEL CTOR TO SPECIFY Performed By: #### L 400.0001 ####[facility] [address] [place], [address] RBC 0-5 SEEN Normal 0-5 [facility] Comment on above: Order Comment: MICHAEL CTOR TO SPECIFY Performed By: #### L 400.0001 ####[facility] [address] [place], [address] WBC 0-5 SEEN Normal 0-5 [facility] Comment on above: Order Comment: MICHAEL CTOR TO SPECIFY Performed By: #### L 400.0001 ####[facility] [address] [place], [address] Urine clarityOrdered By: Brandon Ornelas on 10-25-2024 Clarity (U) Sl. Cloudy Clear [facility] Urine color determinationOrd ered By: Heraclio Ornelas on 10-25-2024 Color (U) Yellow Yellow [facility] Urine cultureOrdered By: Macy Garcia on 10-25-2024 Bacteria identified Cx Nom (U) Positive Abnormal [facility] Urine glucose detectionOrder ed By: Heraclio Ornelas on 10-25-2024 Glucose Ql (U) Normal mg/dl Normal [facility] Urine leukocyte esterase det ection by dipstickOrdered By: Heraclio Ornelas on 10-25-2024 Leukocyte esterase Test strip Ql (U) 25 /ul High Negative [facility] Urine pHOrdered By: Heraclio dias on 10-25-2024 pH (U) 5.0 [pH] 5.0 - 8.0 [facility] Urine sediment bacteria coun t by microscopy (number/high power field)Ordered By: Heraclio Ornelas on 10-25-2024 Bacteria LM.HPF (Urine sed) [#/Area] 1 /[HPF] None Seen [facility] Urine specific gravity measu rementOrdered By: Heraclio Ornelas on 10-25-2024 Specific gravity (U) [Rel density] 1.025 1.002-1.030 [facility] Urine urobilinogen measureme ntOrdered By: Heraclio Ornelas on 10-25-2024 Urobilinogen Ql (U) 1 mg/dl High Normal [facility] White blood cell countOrdere d By: Heraclio Ornelas on 10-25-2024 White blood cell count 0-5 SEEN /hpf 0-5 [facility] Board Certified Behavioral Analyst Office Visit Reporton 10-21-2024 Board Certified Behavioral Analyst Office Visit Report [address], [address] [place] [address] OFFICE VISIT Date of Service: 10/21/24 MR#: [id number] Acct: [id number] Name: QUAN RODGERS KELTON Rep #: [id number] : 2000 Provider: DANIEL chaparro Age/Sex: 24/F Location: [facility] [place] Status: Signed Intake Vital Signs 08/29/24 11:11 09/26/24 13:48 10/21/24 08:39 Height 5 ft 10 in 5 ft 11 in 5 ft 11 in Weight: 258 lb 2 oz BMI 36.0 BP 115/71 Intake Visit Reasons: 17 wk ob Classification Analyst Required: No Is patient in pain?: No Allergies No Known Allergies Allergy (Verified 10/21/24 08:42) Medications ???Medication ???Instructions ???Recorded ???Confirmed ???Type ondansetron 4 mg disintegrating 4 mg PO Q4H PRN nausea and 5 10/21/24 Rx tablet vomiting #60 tabs Last Menstrual Period: 06/24/24 Zika: Zika virus screening: Negative : No PFSH PFSH Medical History Chorioamnionitis delivery delivered Surgical History History of section History of surgery Social History adopted: No household members: children and other details: mom housing: house number of children: 1 current occupational status: employed 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[employer] current occupational exposures/hazards: No pets and animals: No history of recent travel: No sexually active: Yes Smoking Status: Former smoker second hand exposure: No alcohol intake: never substance use type: does not use well-balanced diet: daily or most days caffeine: Yes Type: carbonated beverages eating out: rarely or never during the past year weight has: remained stable what type of physical activity do you participate in: walking frequency: 1-2 times per week duration: < 15 minutes/day aly/buddhist: None seatbelt use: always do you feel safe at home: Yes additional social history: : Max History 2 Elective abortions Hx Para 1 Spontaneous abortions Hx # Term Pregnancies 1 Ectopic pregnancies Hx # Pregnancies Multiple births # of living children 1 Past Pregnancies Del. Date Name GA/Weeks Outcome Route Bth Weight Infant Gen Labor Lgth Anesthesia Del Locatn Provider FOB 11/06/21 Abbak 39 live - full term 8lbs 14oz Male epidural [facility] Renate Farfan Delivery Date: 11/06/21 Last Updated by: Adri Kimble, RN LTCS SM AOD 6 cm boy Babak IOL 41 HPI 17 wk ob Details: QUAN RODGERS is a 24 year old who presents for routine OB visit. OB Visit LINDA Calculator Estimated Delivery Date Method Current WG Current Estimate 03/31/25 LMP (Certain) 17w 0d Other Estimates 03/30/25 Ultrasound #1 17w 1d Expected Delivery Route/Plan Repeat C/S with SM Specific Issue/Plans Covid status: [] Flu vaccine: [] Tdap vaccine: [] Rhogam: [] LARC form signed: [] Problem list reviewed and updated with the most current plan of care details and appropriate orders placed. Relevant counseling for the gestational age provided. Continue routine care and follow up unless otherwise noted in visit notes/problem list details Initial Weight: 259 lb Date -???-???-???-???-? ??-???-???-???-??? -???-???-???- EGA Weight BP Urine Prot -???-???-???-???-? ??-???-???-???-??? -???-???-???- Glucose FHR FuHt Pres Dilation -???-???-???-???-? ??-???-???-???-??? -???-???-???- Effaced St Visit Note 08/29/24 -???-???-???-???-? ??-???-???-???-??? -???-???-???- 9w 3d 259 lb 6 oz (+6 oz) 121/78 -???-???-???-???-? ??-???-???-???-??? -???-???-???- 168 -???-???-???-???-? ??-???-???-???-??? -???-???-???- KW- CRL cons with dates. Declines NIPT. requesting 39 week RC/S 09/04/24 -???-???-???-???-? ??-???-???-???-??? -???-???-???- 10w 2d 255 lb 4 oz (-3 lb 12 oz) 113/73 Negative -???-???-???-???-? ??-???-???-???-??? -???-???-???- Negative 158 -???-???-???-???-? ??-???-???-???-??? -???-???-???- JV- follow u p ER visit today. She possibly passed a kidney stone and feeling better until she had to lift someone heavy at work. FHT seen today on bedside scan. wants NIPT now. plans to return to do this. work restriction letter given. if pain returns will order a KUB 09/26/24 -???-???-???-???-? ??-???-???-???-??? -???-???-???- 13w 3d 258 lb (-16 oz) 123/73 Negative -???-???-???-???-? ??-???-???-???-??? -???-???-???- Negative 155 -???-???-???-???-? ??-???-???-???-??? -???-???-???- JV- no compl aints. is going to medicaid office today and will let us know if approved. if approved will order mfm ultrasound and NIPT with new ob labs. 10/21/24 -???-???-???-???-? ??-???-???-???-??? (more content not included)... Normal [facility] Miscellaneous procedureOrder ed By: Raven Espinoza on 10-02-2024 Miscellaneous Test Comment SEE SCANNED REPORT [facility] NATERAon 10-02-2024 NATURA SEE SCANNED REPORT Normal [facility] Comment on above: Performed By: #### L 900.0098 ####[facility] [id number] [place], [address] Laboratory - Chemistry and C hemistry - challengeOrdered By: Raven Espinoza on 09-26-2024 Glucose Ql (U) Negative [facility] Laboratory - UrinalysisOrder ed By: Raven Espinoza on 09-26-2024 Protein Ql (U) Negative [facility] Board Certified Behavioral Analyst Office Visit Reporton 09-26-2024 Board Certified Behavioral Analyst Office Visit Report [facility] [address], [address] [place] [address] OFFICE VISIT Date of Service: 09/26/24 MR#: [id number] Acct: [id number] Name: QUAN RODGERS KELTON Rep #: [id number] : 2000 Provider: Dr. Raven Brooks, Age/Sex: 24/F Location: [facility] Status: Signed Intake Vital Signs 06/16/24 20:27 09/04/24 10:55 09/26/24 13:47 09/26/24 13:48 Height 5 ft 10 in 5 ft 11 in 5 ft 11 in 5 ft 11 in Weight: 258 lb BMI 35.9 BP 123/73 H Intake Visit Reasons: 13wk OB Classification Analyst Required: No Is patient in pain?: No Allergies No Known Allergies Allergy (Verified 09/26/24 13:47) Medications ???Medication ???Instructions ???Recorded ???Confirmed ???Type ondansetron 4 mg disintegrating 4 mg PO Q4H PRN nausea and 5 09/26/24 Rx tablet vomiting #60 tabs Last Menstrual Period: 06/24/24 Zika: Zika virus screening: Negative : No PFSH PFSH Medical History Chorioamnionitis delivery delivered Surgical History History of section History of surgery Social History adopted: No household members: children and other details: mom housing: house number of children: 1 current occupational status: employed 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[employer] current occupational exposures/hazards: No pets and animals: No history of recent travel: No sexually active: Yes Smoking Status: Former smoker second hand exposure: No alcohol intake: never substance use type: does not use well-balanced diet: daily or most days caffeine: Yes Type: carbonated beverages eating out: rarely or never during the past year weight has: remained stable what type of physical activity do you participate in: walking frequency: 1-2 times per week duration: < 15 minutes/day aly/buddhist: None seatbelt use: always do you feel safe at home: Yes additional social history: : Adolph History 2 Elective abortions Hx Para 1 Spontaneous abortions Hx # Term Pregnancies 1 Ectopic pregnancies Hx # Pregnancies Multiple births # of living children 1 Past Pregnancies Del. Date Name GA/Weeks Outcome Route Bth Weight [facility] Babak 39 live - full term 8lbs 14oz Male epidural [facility] Renate Handley Max Delivery Date: 11/06/21 Last Updated by: Adri Kimble, RN LTCS SM AOD 6 cm boy Babak IOL 41 HPI 13wk OB Details: QUAN RODGERS is a 24 year old who presents for routine OB visit. OB Visit LINDA Calculator Estimated Delivery Date Method Current WG Current Estimate 03/31/25 LMP (Certain) 13w 3d Other Estimates 03/30/25 Ultrasound #1 13w 4d Expected Delivery Route/Plan Repeat C/S with Specific Issue/Plans Covid status: [] Flu vaccine: [] Tdap vaccine: [] Rhogam: [] LARC form signed: [] Problem list reviewed and updated with the most current plan of care details and appropriate orders placed. Relevant counseling for the gestational age provided. Continue routine care and follow up unless otherwise noted in visit notes/problem list details Initial Weight: 259 lb Date -???-???-???-???-? ??-???-???-???-??? -???-???-???- EGA Weight BP Urine Prot -???-???-???-???-? ??-???-???-???-??? -???-???-???- Glucose FHR FuHt Pres Dilation -???-???-???-???-? ??-???-???-???-??? -???-???-???- Effaced St Visit Note 08/29/24 -???-???-???-???-? ??-???-???-???-??? -???-???-???- 9w 3d 259 lb 6 oz (+6 oz) 121/78 -???-???-???-???-? ??-???-???-???-??? -???-???-???- 168 -???-???-???-???-? ??-???-???-???-??? -???-???-???- KW- CRL cons with dates. Declines NIPT. requesting 39 week RC/S 09/04/24 -???-???-???-???-? ??-???-???-???-??? -???-???-???- 10w 2d 255 lb 4 oz (-3 lb 12 oz) 113/73 Negative -???-???-???-???-? ??-???-???-???-??? -???-???-???- Negative 158 -???-???-???-???-? ??-???-???-???-??? -???-???-???- JV- follow u p ER visit today. She possibly passed a kidney stone and feeling better until she had to lift someone heavy at work. FHT seen today on bedside scan. wants NIPT now. plans to return to do this. work restriction letter given. if pain returns will order a KUB 09/26/24 -???-???-???-???-? ??-???-???-???-??? -???-???-???- 13w 3d 258 lb (-16 oz) 123/73 Negative -???-???-???-???-? ??-???-???-???-??? -???-???-???- Negative 155 -???-???-???-???-? ??-???-???-???-??? -???-???-???- JV- no compl aints. is going to medicaid office today and will let us know if approved. if approved will order mfm ultrasound and NIPT with new ob labs. ACOG (more content not included)... Normal [facility] Laboratory - Chemistry and C hemistry - challengeOrdered By: Raven Espinoza on 09-04-2024 Glucose Ql (U) Negative [facility] Laboratory - UrinalysisOrder ed By: Raven Espinoza on 09-04-2024 Protein Ql (U) Negative [facility] Board Certified Behavioral Analyst Office Visit Reporton 09-04-2024 Board Certified Behavioral Analyst Office Visit Report [address], [address] [place] [address] OFFICE VISIT Date of Service: 09/04/24 MR#: [id number] Acct: [id number] Name: QUAN RODGERS KELTON Rep #: [id number] : 2000 Provider: Dr. Raven Brooks DO Age/Sex: 24/F [place] [facility] Status: Signed Intake Vital Signs 08/30/24 00:40 09/04/24 10:54 09/04/24 10:55 Height 5 ft 11 in 5 ft 11 in 5 ft 11 in Weight: 255 lb 4 oz BMI 35.6 BP 113/73 Intake Visit Reasons: ER F/U SEE WORKLOAD MESSAGE Classification Analyst Required: No Is patient in pain?: No Allergies No Known Allergies Allergy (Verified 09/04/24 10:54) Medications ???Medication ???Instructions ???Recorded ???Confirmed ???Type NK 08/30/24 09/04/24 History Last Menstrual Period: 06/24/24 Zika: Zika virus screening: Negative : No PFSH PFSH Medical History Chorioamnionitis delivery delivered Surgical History History of section History of surgery Social History adopted: No household members: children and other details: mom housing: house number of children: 1 current occupational status: employed 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[employer] current occupational exposures/hazards: No pets and animals: No history of recent travel: No sexually active: Yes Smoking Status: Former smoker second hand exposure: No alcohol intake: never substance use type: does not use well-balanced diet: daily or most days caffeine: Yes Type: carbonated beverages eating out: rarely or never during the past year weight has: remained stable what type of physical activity do you participate in: walking frequency: 1-2 times per week duration: < 15 minutes/day aly/buddhist: None seatbelt use: always do you feel safe at home: Yes additional social history: : Max History 2 Elective abortions Hx Para 1 Spontaneous abortions Hx # Term Pregnancies 1 Ectopic pregnancies Hx # Pregnancies Multiple births # of living children 1 Past Pregnancies Del. Date Name GA/Weeks Outcome Route Bth Weight Gen Labor Lgth Anesthesia Del Locatn Provider FOB 11/06/21 Babak 39 live - full term 8lbs 14oz Male epidural [facility] Renate Farfan Delivery Date: 11/06/21 Last Updated by: Adri Kimble, RN LTCS SM AOD 6 cm boy Babak IOL 41 HPI ER F/U SEE WORKLOAD MESSAGE Details: QUAN RODGERS is a 24 year old who presents for routine OB visit. OB Visit LINDA Calculator Estimated Delivery Date Method Current WG Current Estimate 03/31/25 LMP (Certain) 10w 2d Other Estimates 03/30/25 Ultrasound #1 10w 3d Expected Delivery Route/Plan Repeat C/S with SM Specific Issue/Plans Covid status: [] Flu vaccine: [] Tdap vaccine: [] Rhogam: [] LARC form signed: [] Problem list reviewed and updated with the most current plan of care details and appropriate orders placed. Relevant counseling for the gestational age provided. Continue routine care and follow up unless otherwise noted in visit notes/problem list details Initial Weight: 259 lb Date -???-???-???-???-? ??-???-???-???-??? -???-???-???- EGA Weight BP Urine Prot -???-???-???-???-? ??-???-???-???-??? -???-???-???- Glucose FHR FuHt Pres Dilation -???-???-???-???-? ??-???-???-???-??? -???-???-???- Effaced St Visit Note 08/29/24 -???-???-???-???-? ??-???-???-???-??? -???-???-???- 9w 3d 259 lb 6 oz (+6 oz) 121/78 -???-???-???-???-? ??-???-???-???-??? -???-???-???- 168 -???-???-???-???-? ??-???-???-???-??? -???-???-???- KW- CRL cons with dates. Declines NIPT. requesting 39 week RC/S 09/04/24 -???-???-???-???-? ??-???-???-???-??? -???-???-???- 10w 2d 255 lb 4 oz (-3 lb 12 oz) 113/73 Negative -???-???-???-???-? ??-???-???-???-??? -???-???-???- Negative 158 -???-???-???-???-? ??-???-???-???-??? -???-???-???- JV- follow u p ER visit today. She possibly passed a kidney stone and feeling better until she had to lift someone heavy at work. FHT seen today on bedside scan. wants NIPT now. plans to return to do this. work restriction letter given. if pain returns will order a KUB ACOG First Trimester First Trimester: Desire for , Alcohol, Tobacco Cessation, Illicit/Recreation al Drug/Substance Use, Intimate Partner Violence, Barriers to care, Unstable Housing, Communication Barriers, Environmental/Work Hazards, Anticipated Course of Care, Toxoplasmosis Precations, Use of Any medications, Sexual activity, Exercise, Dental Care, Sauna/Hot tub use, Seat Belt use, Childbirth classes/Hospital facilities, Tr (more content not included)... Normal [facility] PAP I-G w/rfx hrHPV-Aptimaon 09-04-2024 ADEQ Comment Normal . [facility] Comment on above: Order Comment: Speci men Comment: [id number] Comment: Source.............CervixSpecimen Comment: Other..............Specimen Comment: No. of containers..01 ThinPrep Vial Result Comment: Sati sfactory for evaluation. Endocervical and/or squamous metaplastic cells (endocervical component) are present. Performed By: #### M 100.2200, L3890.6006, L100.0100, L501.9985, L3890.6301, L7400.0353, L3890.6102, L7000.1800, L509.4006, L509.8002, BTS ####[facility] [address] [place], [place], [id number] COMM . Normal . [facility] Comment on above: Order Comment: Speci men Comment: [id number] Comment: Source.............CervixSpecimen Comment: Other..............Specimen Comment: No. of containers..01 ThinPrep Vial Performed By: #### M 100.2200, L3890.6006, L100.0100, L501.9985, L3890.6301, L7400.0353, L3890.6102, L7000.1800, L509.4006, L509.8002, BTS ####[facility] [address] [place], [address] COMMENT Comment Normal . [facility] Comment on above: Order Comment: Speci men Comment: [id number] Comment: Source.............CervixSpecimen Comment: Other..............Specimen Comment: No. of containers..01 ThinPrep Vial Result Comment: This liquid based ThinPrep(R) pap test was screened with the use of an image guided system. Performed By: #### M 100.2200, L3890.6006, L100.0100, L501.9985, L3890.6301, L7400.0353, L3890.6102, L7000.1800, L509.4006, L509.8002, BTS ####[facility] [address] [place], [place], [id number] DIAG Comment Normal . [facility] Comment on above: Order Comment: Speci men Comment: [id number] Comment: Source.............CervixSpecimen Comment: Other..............Specimen Comment: No. of containers..01 ThinPrep Vial Result Comment: NEGA TIVE FOR INTRAEPITHELIAL LESION OR MALIGNANCY. THIS SPECIMEN WAS RESCREENED PART OF OUR ROVING DEPARTMENT SUPERVISOR PROGRAM. Performed By: #### M 100.2200, L3890.6006, L100.0100, L501.9985, L3890.6301, L7400.0353, L3890.6102, L7000.1800, L509.4006, L509.8002, BTS ####[facility] [address] [facility] [place], [address] HPV RFLX Comment Normal . [facility] Comment on above: Order Comment: Speci men Comment: [id number] Comment: Source.............CervixSpecimen Comment: Other..............Specimen Comment: No. of containers..01 ThinPrep Vial Result Comment: The HPV DNA reflex criteria were not met with this specimen result therefore, no HPV testing was performed. Performed at: [address] [place] [id number] [facility] Generalist: Sheryl Melendez MD, Phone: [phone] Performed By: #### M 100.2200, L3890.6006, L100.0100, L501.9985, L3890.6301, L7400.0353, L3890.6102, L7000.1800, L509.4006, L509.8002, BTS ####[facility] [address] [place], [place], [id number] PAPSMR Comment Normal . [facility] Comment on above: Order Comment: Speci men Comment: [id number] Comment: Source.............CervixSpecimen Comment: Other..............Specimen Comment: No. of containers..01 ThinPrep Vial Result Comment: The Pap smear is a screening test designed to aid in the detection of premalignant and malignant conditions of the uterine cervix. It is not a diagnostic procedure and should not be used as the sole means of detecting cervical cancer. Both false-positive and false-negative reports do occur. Performed By: #### M 100.2200, L3890.6006, L100.0100, L501.9985, L3890.6301, L7400.0353, L3890.6102, L7000.1800, L509.4006, L509.8002, BTS ####[facility] [address] [facility] [place], [address] PERFORM Comment Normal . [facility] Comment on above: Order Comment: Speci men Comment: [id number] Comment: Source.............CervixSpecimen Comment: Other..............Specimen Comment: No. of containers..01 ThinPrep Vial Result Comment: Selina Burks, News Analyst (ASCP) Performed By: #### M 100.2200, L3890.6006, L100.0100, L501.9985, L3890.6301, L7400.0353, L3890.6102, L7000.1800, L509.4006, L509.8002, BTS ####[facility] [address] [place], [address] QC REV Comment Normal . [facility] Comment on above: Order Comment: Speci men Comment: [id number] Comment: Source.............CervixSpecimen Comment: Other..............Specimen Comment: No. of containers..01 ThinPrep Vial Result Comment: Lala Rockwell, News Analyst (ASCP) Performed By: #### M 100.2200, L3890.6006, L100.0100, L501.9985, L3890.6301, L7400.0353, L3890.6102, L7000.1800, L509.4006, L509.8002, BTS ####[facility] [address] [place], [address] Chlamydia/GC DEVENDRA aptimaon CHLAMY,NUC ACID Negative Normal Negative [facility] Comment on above: Performed By: #### M 100.2200, L3890.6006, L100.0100, L501.9985, L3890.6301, L7400.0353, L3890.6102, L7000.1800, L509.4006, L509.8002, BTS ####[facility] [address] [place], [place], [id number] GC BY NUC ACID Negative Normal Negative [facility] Comment on above: Result Comment: Perf ormed at: =G - [facility] [address] [id number] Senior Hr Generalist: Sheryl Melendez MD, Phone: [phone] Performed By: #### M 100.2200, L3890.6006, L100.0100, L501.9985, L3890.6301, L7400.0353, L3890.6102, L7000.1800, L509.4006, L509.8002, BTS ####[facility] [address] [place], [address] Urine Cultureon 08-31-2024 URC Mixed Gram Positive Organisms [place] Count 25,000-50,000 MIXC Mixed contaminants. Submit a new specimen if indicated. Normal [facility] Comment on above: Performed By: #### M 100.2200 #### [facility] [address] [place], [address] URC Mixed Gram Positive Organisms [place] Count 11,000-25,000 MIXC Mixed contaminants. Submit a new specimen if indicated. Normal [facility] Comment on above: Performed By: #### M 100.2200, L3890.6006, L100.0100, L501.9985, L3890.6301, L7400.0353, L3890.6102, L7000.1800, L509.4006, L509.8002, BTS ####[facility] [address] [place], [address] Amorphous sediment detection in urine sediment by light microscopyOrdered By: Christiano Villafuerte on 08-30-2024 Amorphous sediment LM Ql (Urine sed) 1+ URATE [facility] Bacteria LM.HPF (Urine sed) [#/Area]Ordered By: Christiano Villafuerte on 08-30-2024 Urine Bacteria RARE /hpf None Seen [facility] Bilirubin Test strip Ql (U)O rdered By: Christiano Villafuerte on 08-30-2024 Bilirubin Ql (U) Negative Negative [facility] Emergency Department Summary on 08-30-2024 Emergency Department Summary [facility] Medical Records Department [address] [place] [address] Emergency Department Summary 08/30/24 MR#: [id number] Acct: [id number] Name: QUAN RODGERS KELTON Rep #: [id number] : 2000 24 From: Christiano Villafuerte MD PCP: Care Physician,No Primary Status:REG ER Location: ED HPI HPI - GI History of Present Illness Chief Complaint: Abd Pain Informant: patient and PCP (OB Dr. Handley) Narrative Narrative: 24-year-old female states she started having left lower pelvic/abdominal pain about 4 or 5 hours ago. She is 9 weeks . She states earlier today she had a checkup in the office and boat assembler did an ultrasound and told her she had an IUP. G2, . She states she was having some trouble urinating tonight 2, when she felt like she needed to go she only dribbled a little. She denies any hematuria. No dysuria. No pain in her flank or back. No nausea or vomiting. No fevers or chills. Normal bowel movements. 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[employer] current occupational exposures/hazards: No pets and animals: No history of recent travel: No sexually active: Yes Smoking Status: Former smoker second hand exposure: No alcohol intake: never substance use type: does not use well-balanced diet: daily or most days caffeine: Yes Type: carbonated beverages eating out: rarely or never during the past year weight has: remained stable what type of physical activity do you participate in: walking frequency: 1-2 times per week duration: < 15 minutes/day aly/buddhist: None seatbelt use: always do you feel safe at home: Yes additional social history: : Adolph NOBLE ED Constitutional Constitutional ED: Denies chills or fever(s) Eyes Eyes: Denies change in vision or diplopia ENT ENT ED: Denies rhinorrhea or sore throat Cardiovascular Cardiovascular: Denies chest pain or palpitations Respiratory/Chest Respiratory/Chest: Denies cough or dyspnea Gastrointestinal Gastrointestinal: Reports abdominal pain; Denies diarrhea, nausea or vomiting Genitourinary Genitourinary ED: Denies dysuria, hematuria, vaginal bleeding or vaginal discharge Musculoskeletal Musculoskeletal: Denies back pain or neck pain Integumentary Denies abscess or rash Neurologic Neurologic: Denies headache(s), paresthesias or weakness Psychiatric Psychiatric: Denies anxiety or suicidal thoughts EXAM Physical Exam Const Vital Signs: 08/30/24 00:40 Temperature 97.0 F L Temperature Source Oral Pulse Rate 81 Respiratory Rate 18 Blood Pressure 130/69 H Blood Pressure Mean 89 Pulse Ox 99 Oxygen Delivery Method Room Air Positive well nourished and well developed General Appearance ED: well developed and NAD HEENT Reports moist mucous membranes normocephalic and atraumatic Eyes PERRL and EOMs intact bilaterally Neck full ROM and supple Resp normal respiratory effort and clear to auscultation bilaterally Cardio regular rate, regular rhythm and no murmurs GI non-distended GI Narrative: Very tender in the left pelvis with some voluntary guarding otherwise benign abdomen. Auscultation: normoactive bowel sounds Palpation: soft Speculum Exam - Vagina: Negative for vaginal bleeding or vaginal discharge Back/Spine no CVA tenderness General Back: other FROM Extremity normal to inspection General Extremety ED: Negative for edema, pulses abnormal or tenderness General Extremity: Negative for edema or pulses abnormal Neuro oriented x3, CN's II-XII intact bilaterally and no sensory deficits noted Sensorium / Orientation: awake and alert Motor Exam: strength 5/5 throughout Skin no rashes or lesions noted and no wounds MDM MDM MDM Narrative Medical decision making narrative: Patient wanted morphine for pain. We discussed the pros and cons of doing that when you are , she understands and would like a dose because she was in a lot of pain although she looked well. She said it really helped. I obtained a quantitative hCG, which is over 100,000, and an emergent ultrasound of the pelvis, transvagina (more content not included)... Normal [facility] Epithelial cells.squamous LM Ql (Urine sed)Ordered By: Christiano Villafuerte on 08-30-2024 Epithelial cells.squamous LM.HPF (Urine sed) [#/Area] 10 /[HPF] 5-10 [facility] Glucose Ql (U)Ordered By: Riley Villafuerte on 08-30-2024 Urine Glucose (UA) Normal mg/dl Normal [facility] HCG ( test) QlOrder ed By: Christiano Villafuerte on 08-30-2024 Human Chorionic Gonadotropin, Quant 059052 mIU/mL High <9 [facility] Comment on above: Gestational Age0.2-1 Week: 5-50 mIU/mL1-2 Weeks: 50-500 mIU/mL2-3 Weeks: 100-5000 mIU/mL3-4 Weeks: 500-10,000 mIU/mL4-5 Weeks:1000-50,000 mIU/mL5-6 Weeks: 10,000-100,000 mIU/mL6-8 Weeks: 15,000-200,000 mIU/mL2-3 Months:10,000-100,000 mIU/mL Ketones Test strip Ql (U)Ord ered By: Christiano Villafuerte on 08-30-2024 Ketones Ql (U) Negative Negative [facility] Microscopic analysis of urin e for red blood cells (RBC)Ordered By: Christiano Villafuerte on 08-30-2024 Microscopic analysis of urine for red blood cells (RBC) 0 SEEN /hpf 0-5 [facility] Urine RBC 0 SEEN /hpf 0-5 [facility] Mucus LM Ql (Urine sed)Order ed By: Christiano Villafuerte on 08-30-2024 Mucus Ql (Urine sed) 0 SEEN /hpf [facility] Nitrite Test strip Ql (U)Ord ered By: Christiano Villafuerte on 08-30-2024 Nitrite Ql (U) Negative Negative [facility] Protein Test strip Ql (U)Ord ered By: Christiano Villafuerte on 08-30-2024 Protein Ql (U) 30 mg/dl High Negative [facility] Serum human chorionic gonado tropin detection for pregnancyOrdered By: Christiano Villafuerte on 08-30-2024 HCG ( test) Ql 524754 mIU/mL High <9 [facility] Comment on above: Gestational Age0.2-1 Week: 5-50 mIU/mL1-2 Weeks: 50-500 mIU/mL2-3 Weeks: 100-5000 mIU/mL3-4 Weeks: 500-10,000 mIU/mL4-5 Weeks:1000-50,000 mIU/mL5-6 Weeks: 10,000-100,000 mIU/mL6-8 Weeks: 15,000-200,000 mIU/mL2-3 Months:10,000-100,000 mIU/mL Squamous epithelial cells de tection in urine sediment by light microscopyOrdered By: Christiano Villafuerte on 08-30-2024 Epithelial cells.squamous LM Ql (Urine sed) 10-25 SEEN /hpf 5-10 [facility] Transvaginal w/Preg USon Transvaginal w/Preg US [facility] [address] [place] [address] Transvaginal w/Preg US MR#: [id number] Acct: [id number] Name: QUAN RODGERS KELTON Rep #: [id number] : 2000 F 24 From: Lukas Lynn MD PCP: Care Physician,No Primary Status: REG ER Study: Transvaginal w/Preg US Date of Exam: 08/30/24 Exam# [id number] Ordering Dr: Christiano Villafuerte MD PROCEDURE: TRANSVAGINAL W/PREG US REASON FOR EXAM: Left pelvic pain, 9 weeks COMPARISON: None. FINDINGS: The uterus measures 13.9 x 6.2 x 6.8 cm. Single live intrauterine measuring 9 weeks and 3 days by crown-rump length fundal portion of the uterus. heart tones 177 beats per minute. Yolk sac is present, 4 mm. No evidence of yazmin-sac haemorrhage. The cervix appears closed. The right and left ovaries are not identified. No evidence of adnexal mass. No free fluid seen. LINDA by ultrasound 04/03/2025, by last menstrual period 03/31/2025. US/Transvaginal w/Preg US IMPRESSION: Single live intrauterine measuring 9 weeks and 3 days by crown-rump length. heart tones 177 beats per minute.. Reading Location: [facility] CC: Dr. Christiano Villafuerte MD; No Primary Care Physician Monotype Keyboard Operator: Signed Normal [facility] Urinalysis, Completeon 08-30 AMORPHOUS 1+ URATE Normal [facility] Comment on above: Order Comment: CLEAN CATCH Performed By: #### L 400.0001 ####[facility] [address] [place], [address] BACTERIA RARE Normal None Seen [facility] Comment on above: Order Comment: CLEAN CATCH Performed By: #### L 400.0001 ####[facility] [address] [place], [address] EPI,SQUAMOUS 10-25 SEEN Normal 5-10 [facility] Comment on above: Order Comment: CLEAN CATCH Performed By: #### L 400.0001 ####[facility] [address] [place], [address] RBC 0 SEEN Normal 0-5 [facility] Comment on above: Order Comment: CLEAN CATCH Performed By: #### L 400.0001 ####[facility] [address] [place], [address] WBC 5-10 SEEN Normal 0-5 [facility] Comment on above: Order Comment: CLEAN CATCH Performed By: #### L 400.0001 ####[facility] [address] [place], [address] Mucus Ql (Urine sed) 0 SEEN Normal [facility] Comment on above: Order Comment: CLEAN CATCH Performed By: #### L 400.0001 ####[facility] [address] [place], [address] Urine blood detectionOrdered By: Christiano Villafuerte on 08-30-2024 Urine Occult Blood Negative Negative [facility] Urine clarityOrdered By: Kevin Villafuerte on 08-30-2024 Clarity (U) Cloudy Clear [facility] Urine color determinationOrd ered By: Christiano Villafuerte on 08-30-2024 Color (U) Yellow Yellow [facility] Urine cultureOrdered By: Kevin Villafuerte on 08-30-2024 Bacteria identified Cx Nom (U) Positive Abnormal [facility] Urine glucose detectionOrder ed By: Christiano Villafuerte on 08-30-2024 Glucose Ql (U) Normal mg/dl Normal [facility] Urine leukocyte esterase det ection by dipstickOrdered By: Christiano Villafuerte on 08-30-2024 Leukocyte esterase Test strip Ql (U) 100 /ul High Negative [facility] Urine pHOrdered By: Christiano Villafuerte on 08-30-2024 pH (U) 6.0 [pH] 5.0 - 8.0 [facility] Urine sediment bacteria coun t by microscopy (number/high power field)Ordered By: Christiano Villafuerte on 08-30-2024 Bacteria LM.HPF (Urine sed) [#/Area] RARE /hpf None Seen [facility] Urine specific gravity measu rementOrdered By: Christiano Villafueret on 08-30-2024 Specific gravity (U) [Rel density] 1.025 1.002-1.030 [facility] Urine urobilinogen measureme ntOrdered By: Christiano Villafuerte on 08-30-2024 Urobilinogen Ql (U) 1 mg/dl High Normal [facility] Urobilinogen Ql (U)Ordered B y: Christiano Villafuerte on 08-30-2024 Urobilinogen (U) [Mass/Vol] 1 mg/dL High Normal [facility] White blood cell countOrdere d By: Christiano Villafuerte on 08-30-2024 Urine WBC 5-10 SEEN /hpf 0-5 [facility] White blood cell count 5-10 SEEN /hpf 0-5 [facility] hCG Titer Quant., Serumon HCG QUANT. 675692 mIU/mL High <9 non-preg [facility] Comment on above: Result Comment: Gest ational Age 0.2-1 Week: 5-50 mIU/mL 1-2 Weeks: 50-500 mIU/mL 2-3 Weeks: 100-5000 mIU/mL 3-4 Weeks: 500-10,000 mIU/mL 4-5 Weeks:1000-50,000 mIU/mL 5-6 Weeks: 10,000-100,000 mIU/mL 6-8 Weeks: 15,000-200,000 mIU/mL 2-3 Months:10,000-100,000 mIU/mL Performed By: #### L 700.8000 #### [facility] [address] [place], [address] Absolute lymphocyte countOrd ered By: Shell Patricio on 08-29-2024 Lymphocytes Auto (Unsp spec) [#/Vol] 2.01 10*3/uL 0.83-4.51 [facility] Absolute neutrophil countOrd ered By: Shell Curry on 08-29-2024 Neutrophils (Bld) [#/Vol] 6.1 10*3/uL 2.0-7.7 [facility] Automated lymphocyte count a s percentage of total leukocytesOrdered By: Shell Curry on 08-29-2024 Lymphocytes/100 WBC Auto (Unsp spec) 22.5 % 19-41 [facility] Basophil percentageOrdered B y: Shell Curry on 08-29-2024 Basophils/100 WBC (Bld) 0.6 % 0-1 [facility] C. trachomatis rRNA DEVENDRA+prob e Ql (Unsp spec)Ordered By: Shell Curry on 08-29-2024 Chlamydia DNA (DEVENDRA) Negative Negative [facility] CBC W/Diff, Automatedon 03-0 Absolute Lymph 2.01 X10 3/uL Normal 0.83-4.51 [facility] Comment on above: Performed By: #### M 100.2200, L3890.6006, L100.0100, L501.9985, L3890.6301, L7400.0353, L3890.6102, L7000.1800, L509.4006, L509.8002, BTS #### [facility] [address] [facility] [place], [address] Absolute Neut 6.1 X10 3/uL Normal 2.0-7.7 [facility] Comment on above: Performed By: #### M 100.2200, L3890.6006, L100.0100, L501.9985, L3890.6301, L7400.0353, L3890.6102, L7000.1800, L509.4006, L509.8002, BTS #### [facility] [address] [facility] [place], [address] Basophils/100 WBC (Bld) 0.6 % Normal 0-1 [facility] Comment on above: Performed By: #### M 100.2200, L3890.6006, L100.0100, L501.9985, L3890.6301, L7400.0353, L3890.6102, L7000.1800, L509.4006, L509.8002, BTS #### [facility] [address] [place], [address] Eosinophils/100 WBC (Bld) 0.8 % Normal 0-5 [facility] Comment on above: Performed By: #### M 100.2200, L3890.6006, L100.0100, L501.9985, L3890.6301, L7400.0353, L3890.6102, L7000.1800, L509.4006, L509.8002, BTS #### [facility] [address] [facility] [place], [place], [phone] [phone] Erythrocyte distribution width (RBC) [Ratio] 11.9 % Normal 11.6-14.6 [facility] Comment on above: Performed By: #### M 100.2200, L3890.6006, L100.0100, L501.9985, L3890.6301, L7400.0353, L3890.6102, L7000.1800, L509.4006, L509.8002, BTS #### [facility] [address] [facility] [place], [address] Hematocrit (Bld) [Volume fraction] 38.2 % Normal 37-47 [facility] Comment on above: Performed By: #### M 100.2200, L3890.6006, L100.0100, L501.9985, L3890.6301, L7400.0353, L3890.6102, L7000.1800, L509.4006, L509.8002, BTS #### [facility] [address] [place], [address] Hemoglobin (Bld) [Mass/Vol] 13.0 g/dL Normal 12.0-15.0 [facility] Comment on above: Performed By: #### M 100.2200, L3890.6006, L100.0100, L501.9985, L3890.6301, L7400.0353, L3890.6102, L7000.1800, L509.4006, L509.8002, BTS #### [facility] [address] [place], [address] IG% 0.400 Normal 0.0-0.9 [facility] Comment on above: Result Comment: IG% - Immature Granulocytes (promyelocytes, myelocytes and metamyelocytes) > 1% indicates that a LEFT SHIFT is Present. Performed By: #### M 100.2200, L3890.6006, L100.0100, L501.9985, L3890.6301, L7400.0353, L3890.6102, L7000.1800, L509.4006, L509.8002, BTS #### [facility] [address] [place], [address] Lymphocytes/100 WBC (Bld) 22.5 % Normal 19-41 [facility] Comment on above: Performed By: #### M 100.2200, L3890.6006, L100.0100, L501.9985, L3890.6301, L7400.0353, L3890.6102, L7000.1800, L509.4006, L509.8002, BTS #### [facility] [address] [place], [address] MCH (RBC) [Entitic mass] 30.2 pg Normal 27.0-32.0 [facility] Comment on above: Performed By: #### M 100.2200, L3890.6006, L100.0100, L501.9985, L3890.6301, L7400.0353, L3890.6102, L7000.1800, L509.4006, L509.8002, BTS #### [facility] [address] [place], [address] MCHC (RBC) [Mass/Vol] 34.0 g/dL Normal 32-36 [facility] Comment on above: Performed By: #### M 100.2200, L3890.6006, L100.0100, L501.9985, L3890.6301, L7400.0353, L3890.6102, L7000.1800, L509.4006, L509.8002, BTS #### [facility] [address] [facility] [place], [address] MCV (RBC) [Entitic vol] 88.6 fL Normal 81-99 [facility] Comment on above: Performed By: #### M 100.2200, L3890.6006, L100.0100, L501.9985, L3890.6301, L7400.0353, L3890.6102, L7000.1800, L509.4006, L509.8002, BTS #### [facility] [address] [place], [address] Monocytes/100 WBC (Bld) 7.9 % Normal 0-10 [facility] Comment on above: Performed By: #### M 100.2200, L3890.6006, L100.0100, L501.9985, L3890.6301, L7400.0353, L3890.6102, L7000.1800, L509.4006, L509.8002, BTS #### [facility] [address] [facility] [address] [place], [address] Neutrophils/100 WBC (Bld) 67.8 % Normal 47-70 [facility] Comment on above: Performed By: #### M 100.2200, L3890.6006, L100.0100, L501.9985, L3890.6301, L7400.0353, L3890.6102, L7000.1800, L509.4006, L509.8002, BTS #### [facility] [address] [place], [address] Nucleated RBC (Bld) [#/Vol] 0 10*3/uL Normal 0-5 [facility] Comment on above: Performed By: #### M 100.2200, L3890.6006, L100.0100, L501.9985, L3890.6301, L7400.0353, L3890.6102, L7000.1800, L509.4006, L509.8002, BTS #### [facility] [address] [place], [address] Platelet mean volume (Bld) [Entitic vol] 11.1 fL Normal 6.2-12.0 [facility] Comment on above: Performed By: #### M 100.2200, L3890.6006, L100.0100, L501.9985, L3890.6301, L7400.0353, L3890.6102, L7000.1800, L509.4006, L509.8002, BTS #### [facility] [address] [place], [address] Platelets (Bld) [#/Vol] 254 10*3/uL Normal 150-450 [facility] Comment on above: Performed By: #### M 100.2200, L3890.6006, L100.0100, L501.9985, L3890.6301, L7400.0353, L3890.6102, L7000.1800, L509.4006, L509.8002, BTS #### [facility] [address] [place], [address] RBC (Bld) [#/Vol] 4.31 10*6/uL Normal 4.2-5.4 [facility] Comment on above: Performed By: #### M 100.2200, L3890.6006, L100.0100, L501.9985, L3890.6301, L7400.0353, L3890.6102, L7000.1800, L509.4006, L509.8002, BTS #### [facility] [address] [place], [address] RDW SD 38.4 fl Normal 35.1-43.9 [facility] Comment on above: Performed By: #### M 100.2200, L3890.6006, L100.0100, L501.9985, L3890.6301, L7400.0353, L3890.6102, L7000.1800, L509.4006, L509.8002, BTS #### [facility] [address] [place], [address] WBC (Bld) [#/Vol] 8.9 10*3/uL Normal 4.4-11.0 [facility] Comment on above: Performed By: #### M 100.2200, L3890.6006, L100.0100, L501.9985, L3890.6301, L7400.0353, L3890.6102, L7000.1800, L509.4006, L509.8002, BTS #### [facility] [address] [place], [place], [id number] ([phone]) Cervical or vagninal specime n microscopic examination by cytology stain (reported asOrdered By: Shell Curry on 08-29-2024 Cytology report Cyto stain Doc (Cvx/Vag) Comment . [facility] Comment on above: The Pap smear is a s creening test designed to aid in thedetection of premalignant and malignant conditions of theuterine cervix. It is not a diagnostic procedure andshould not be used as the sole means of detecting cervicalcancer. Both false-positive and false-negative reports dooccur. Chlamydia trachomatis rRNA d etection by probe and target amplification methodOrdered By: Shell Curry on 08-29-2024 C. trachomatis rRNA DEVENDRA+probe Ql (Unsp spec) Negative Negative [facility] Dramatic Reader Cyto stain Nom (C vx/Vag) [ID]Ordered By: Shell Curry on 08-29-2024 Pap Smear Performed By Comment . [facility] Comment on above: Selina Burks, Cytotec hnologist (ASCP) Cytology report Cyto stain D oc (Cvx/Vag)Ordered By: Shell Curry on 08-29-2024 Thin Prep Pap Smear Comment . [facility] Comment on above: The Pap smear is a s creening test designed to aid in thedetection of premalignant and malignant conditions of theuterine cervix. It is not a diagnostic procedure andshould not be used as the sole means of detecting cervicalcancer. Both false-positive and false-negative reports dooccur. Eosinophil percentageOrdered By: Shell Curry on 08-29-2024 Eosinophils/100 WBC (Bld) 0.8 % 0-5 [facility] Erythrocyte distribution wid th ratioOrdered By: Shell Curry on 08-29-2024 Erythrocyte distribution width (RBC) [Ratio] 11.9 % 11.6-14.6 [facility] Erythrocyte distribution wid th standard deviationOrdered By: Shell Curry on 08-29-2024 Erythrocyte distribution width (RBC) [Entitic vol] 38.4 fL 35.1-43.9 [facility] Erythrocyte distribution width (RBC) [Ratio] 38.4 fl 35.1-43.9 [facility] HBV surface Ag Ql (S)Ordered By: Shell Curry on 08-29-2024 Hepatitis B Surface Antigen Non-Reactive Nonreactive [facility] Comment on above: Reactive: Presumptiv e evidence of HBV. Repeatedly reactive samples must be confirmed using a neutralization test (Elecsys HBsAg Confirmatory Test)Non-Reactive: HBsAg not detected; does not exclude the possibility of exposure to HBV Hematocrit Auto (Bld) [Volum e fraction]Ordered By: Shell Curry on 08-29-2024 Hematocrit (Bld) [Volume fraction] 38.2 % 37-47 [facility] Hemoglobin A1con 08-29-2024 HbA1c (Bld) [Mass fraction] 5.1 % Low <=5.6 [facility] Comment on above: Performed By: #### M 100.2200, L3890.6006, L100.0100, L501.9985, L3890.6301, L7400.0353, L3890.6102, L7000.1800, L509.4006, L509.8002, BTS ####[facility] [address] [place], [address] Hemoglobin A1c percentageOrd ered By: Shell Curry on 08-29-2024 HbA1c (Bld) [Mass fraction] 5.1 % Low >5.7 [facility] Hemoglobin measurementOrdere d By: Shell Curry on 08-29-2024 Hemoglobin (Bld) [Mass/Vol] 13.0 g/dL 12.0-15.0 [facility] Hepatitis C antibodyOrdered By: Shell Curry on 08-29-2024 Hepatitis C Antibody Non-Reactive Nonreactive [facility] Comment on above: Reactive: Presumptiv e evidence of antibodies to HCV. Follow CDC recommendations for supplemental testing.Non-Reactive: Antibodies to HCV were not detected; does not exclude the possibility of exposure to HCVReactive Results are presumptive evidence of antibodies to HCV. Follow CDC recommendations for supplemental testing.Order confirmation testing: HCV Quant by PCR testing - HCVPCR #[id number] Non Reactive: < 0.8 Equivocal: >/= 0.8 to < 1.0 Reactive: >/= 1.0The CDC requires that a reactive/equivocal HCV antibody result be sent out for confirmation. HCV Quant by PCR testing. Image-guided ThinPrep PapOrd ered By: Shell Curry on 08-29-2024 Pap Smear Note Comment . [facility] Comment on above: This liquid based Th inPrep(R) pap test was screened withthe use of an image guided system. Image-guided liquid-based Pa pOrdered By: Shell Curry on 08-29-2024 Pap Smear Diagnosis Comment . 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 Image-guided liquid-based ce rvical Pap w high-risk HPV+reflex to HPV 16+18Ordered By: Shell Curry on 08-29-2024 Human Papillomavirus Screen Comment . [facility] Comment on above: The HPV DNA reflex c artemio were not met with this specimenresult therefore, no HPV testing was performed.Performed at: [facility] [place] [id number] Director: Sheryl Melendez MD, Phone: [phone] Immature granulocytes/100 WB C Auto (Bld)Ordered By: Shell Curry on 08-29-2024 Immature granulocytes/100 WBC (Bld) 0.400 % 0.0-0.9 [facility] Comment on above: IG% - Immature Granu locytes (promyelocytes, myelocytes and metamyelocytes) > 1% indicates that a LEFT SHIFT is Present. L3890.6006on 08-29-2024 HIV Non-Reactive Normal Nonreactive [facility] Comment on above: Result Comment: Non- Reactive Reactive Repeatedly reactive samples must be confirmed according to CDC recommended confirmatory algorithms. The subresults for either HIVAG or AHIV can be used as an aid in the selection of the confirmation algorithm for reactive samples. Send out specimens with Reactive results to [facility] for confirmation. Order the HIV antibody detection and differentiation: lc#[id number] Performed By: #### M 100.2200, L3890.6006, L100.0100, L501.9985, L3890.6301, L7400.0353, L3890.6102, L7000.1800, L509.4006, L509.8002, BTS ####[facility] [address] [place], [address] L3890.6102on 08-29-2024 HEP B Surf Ag Non-Reactive Normal Nonreactive [facility] Comment on above: Result Comment: Reac tive: Presumptive evidence of HBV. Repeatedly reactive samples must be confirmed using a neutralization test (Elecsys HBsAg Confirmatory Test) Non-Reactive: HBsAg not detected; does not exclude the possibility of exposure to HBV Performed By: #### M 100.2200, L3890.6006, L100.0100, L501.9985, L3890.6301, L7400.0353, L3890.6102, L7000.1800, L509.4006, L509.8002, BTS ####[facility] [address] [facility]. [place], [place], [id number] L3890.6301on 08-29-2024 Hepatitis C Ab Non-Reactive Normal Nonreactive [facility] Comment on above: Result Comment: Reac tive: Presumptive evidence of antibodies to HCV. Follow CDC recommendations for supplemental testing. Non-Reactive: Antibodies to HCV were not detected; does not exclude the possibility of exposure to HCV Reactive Results are presumptive evidence of antibodies to HCV. Follow CDC recommendations for supplemental testing. Order confirmation testing: HCV Quant by PCR testing - HCVPCR #[id number] Non Reactive: < 0.8 Equivocal: >/= 0.8 to < 1.0 Reactive: >/= 1.0 [facility] requires that a reactive/equivocal HCV antibody result be sent out for confirmation. HCV Quant by PCR testing. Performed By: #### M 100.2200, L3890.6006, L100.0100, L501.9985, L3890.6301, L7400.0353, L3890.6102, L7000.1800, L509.4006, L509.8002, BTS ####[facility] [address] [facility]. [place], [place], [id number] L509.4006on 08-29-2024 Rubella IgG REAC Normal Nonreactive [facility] Comment on above: Result Comment: Anti body Result: Interpretation Non-Reactive: Non-Immune Reactive: Immune The following results were obtained with the Elecsys Rubella IgG assay. Results from assays of other manufacturers cannot be used interchangeably. Performed By: #### M 100.2200, L3890.6006, L100.0100, L501.9985, L3890.6301, L7400.0353, L3890.6102, L7000.1800, L509.4006, L509.8002, BTS ####[facility] [address] [place], [place], [id number] L509.8002on 08-29-2024 Syphilis Abs Non-Reactive Normal Nonreactive [facility] Comment on above: Performed By: #### M 100.2200, L3890.6006, L100.0100, L501.9985, L3890.6301, L7400.0353, L3890.6102, L7000.1800, L509.4006, L509.8002, BTS ####[facility] [address] [place], [address] Laboratory - CytologyOrdered By: Shell Curry on 08-29-2024 Dramatic Reader Cyto stain Nom (Cvx/Vag) [ID] Comment . [facility] Comment on above: Selina Burks, Cytotec hnologist (ASCP) Laboratory - Microbiology an d Antimicrobial susceptibilityOrdered By: Shell Curry on 08-29-2024 HBV surface Ag Ql (S) Non-Reactive Nonreactive [facility] Comment on above: Reactive: Presumptiv e evidence of HBV. Repeatedly reactive samples must be confirmed using a neutralization test (Elecsys HBsAg Confirmatory Test)Non-Reactive: HBsAg not detected; does not exclude the possibility of exposure to HBV Laboratory - Miscellaneous t estsOrdered By: Shell Curry on 08-29-2024 Service comment (Unsp spec) [Interp] . . [facility] Lymphocytes Auto (Unsp spec) [#/Vol]Ordered By: Shell Curry on 08-29-2024 Lymphocytes (Bld) [#/Vol] 2.01 10*3/uL 0.83-4.51 [facility] Lymphocytes/100 WBC Auto (Un sp spec)Ordered By: Shell Curry on 08-29-2024 Lymphocytes/100 WBC (Bld) 22.5 % 19-41 [facility] MCV (mean corpuscular volume ) determinationOrdered By: Shell Curry on 08-29-2024 MCV (RBC) [Entitic vol] 88.6 fL 81-99 [facility] Mean corpuscular hemoglobin (MCH) determinationOrdered By: Shell Curry on 08-29-2024 MCH (RBC) [Entitic mass] 30.2 pg 27.0-32.0 [facility] Mean corpuscular hemoglobin concentration (MCHC) determinationOrdered By: Shell Curry on 08-29-2024 MCHC (RBC) [Mass/Vol] 34.0 g/dL 32-36 [facility] Mean platelet volume determi nationOrdered By: Shell Curry on 08-29-2024 Platelet mean volume (Bld) [Entitic vol] 11.1 fL 6.2-12.0 [facility] Monocyte percentageOrdered B y: Shell Curry on 08-29-2024 Monocytes/100 WBC (Bld) 7.9 % 0-10 [facility] Neisseria gonorrhoeae nuclei c acid detection by amplified probe techniqueOrdered By: Shell Curry on 08-29-2024 N. gonorrhoeae DNA DEVENDRA+probe Ql (Unsp spec) Negative Negative [facility] Comment on above: Performed at: =[address] [id number] Director: Sheryl Melendez MD, Phone: [phone] Neutrophil percentageOrdered By: Shell Curry on 08-29-2024 Neutrophils/100 WBC (Bld) 67.8 % 47-70 [facility] No Panel InformationOrdered By: Shell Curry on 08-29-2024 HIV (1&2) Antibody Non-Reactive Nonreactive [facility] Comment on above: Non-ReactiveReactive Repeatedly reactive samples must be confirmed according to CDC recommended confirmatory algorithms. The subresults for either HIVAG or AHIV can be used as an aid in the selection of the confirmation algorithm for reactive samples.Send out specimens with Reactive results to [facility] for confirmation.Order the HIV antibody detection and differentiation: #[id number] Pap Smear QC Review Comment . [facility] Comment on above: Lala Rockwell, Cytot echnologist (ASCP) Pap Smear Specimen Adequacy Comment . [facility] Comment on above: Satisfactory for anan luation. Endocervical and/or squamous metaplasticcells (endocervical component) are present. Nucleated red blood cell per centageOrdered By: Shell Curry on 08-29-2024 Nucleated RBC/100 WBC (Bld) [Ratio] 0 % 0-5 [facility] Board Certified Behavioral Analyst Office Visit Reporton 08-29-2024 Board Certified Behavioral Analyst [facility] [address], [address] [place] [address] OFFICE VISIT Date of Service: 08/29/24 MR#: [id number] Acct: [id number] Name: QUAN RODGERS Rep #: [id number] : 2000 Provider: KEO Ridley ams Age/Sex: 24/F Location: [facility] Status: Signed Intake Vital Signs 06/16/24 20:27 08/29/24 11:11 Height 5 ft 10 in 5 ft 10 in Weight: 259 lb 6 oz BMI 37.2 BP 121/78 H Intake Visit Reasons: New OB, LMP 06/24, LINDA 03/31/25 Chief Complaint: New OB Is patient in pain?: No Allergies No Known Allergies Allergy (Verified 08/29/24 11:21) Medications ???Medication ???Instructions ???Recorded ???Confirmed ???Type ondansetron 4 mg disintegrating 4 mg PO Q6H PRN nausea and 5 08/29/24 Rx tablet vomiting #90 tabs Last Menstrual Period: 06/24/24 : No PFSH PFSH Medical History Chorioamnionitis delivery delivered Surgical History History of section History of surgery Social History (Updated 08/09/24 @ 09:10 by Adri Kimble RN) adopted: No household members: children and other details: mom housing: house number of children: 1 service: No current occupational status: employed 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[employer] current occupational exposures/hazards: No pets and animals: No history of recent travel: No sexually active: Yes Smoking Status: Never smoker second hand exposure: No alcohol intake: never substance use type: does not use well-balanced diet: daily or most days caffeine: Yes Type: carbonated beverages eating out: rarely or never during the past year weight has: remained stable what type of physical activity do you participate in: walking frequency: 1-2 times per week duration: < 15 minutes/day aly/buddhist: None seatbelt use: always do you feel safe at home: Yes additional social history: : Max History 2 Elective abortions Hx Para 1 Spontaneous abortions Hx # Term Pregnancies 1 Ectopic pregnancies Hx # Pregnancies Multiple births # of living children 1 Past Pregnancies Del. Date Name GA/Weeks Outcome Route Bth Weight Gen Labor Lgth Anesthesia Del Locatn Provider FOB 11/06/21 Babak 39 live - full term 8lbs 14oz Male epidural WC Renate Handley Max Delivery Date: 11/06/21 Last Updated by: Adri Kimble, RN LTCS SM AOD 6 cm boy Babka IOL 41 HPI New OB, LMP 06/24, LINDA 03/31/25 Details: QUAN RODGERS is a 24 year old who presents for New OB visit. OB Visit LINDA Calculator Estimated Delivery Date Method Current WG Current Estimate 03/31/25 LMP (Certain) 9w 3d Other Estimates 03/30/25 Ultrasound #1 9w 4d Estimated Due Date: 03/31/25 Expected Delivery Route/Plan Repeat C/S with SM Specific Issue/Plans Covid status: [] Flu vaccine: [] Tdap vaccine: [] Rhogam: [] LARC form signed: [] Problem list reviewed and updated with the most current plan of care details and appropriate orders placed. Relevant counseling for the gestational age provided. Continue routine care and follow up unless otherwise noted in visit notes/problem list details Initial Weight: 259 lb Date -???-???-???-???-? ??-???-???-???-??? -???-???-???- EGA Weight BP Urine Prot -???-???-???-???-? ??-???-???-???-??? -???-???-???- Glucose FHR FuHt Pres Dilation -???-???-???-???-? ??-???-???-???-??? -???-???-???- Effaced St Visit Note 08/29/24 -???-???-???-???-? ??-???-???-???-??? -???-???-???- 9w 3d 259 lb 6 oz (+6 oz) 121/78 -???-???-???-???-? ??-???-???-???-??? -???-???-???- 168 -???-???-???-???-? ??-???-???-???-??? -???-???-???- KW- CRL cons with dates. Declines NIPT. requesting 39 week RC/S Menstrual History Last Menstrual Period: 06/24/24 Reported LMP: definite Normal amount/duration: Yes Frequency in days: 28 On hormonal BC at conception: No hCG+: 07/23/24 Antepartum Record Genetic Screening: Congenital Heart Defect: Other, Neural Tube Defect: Other, Hemoglobinopathy Or Carrier: Other, Cystic Fibrosis: Other, Chromosome Abnormality: Other, Alexander-Sachs: Other, Hemophilia: Other, Intellectual Disability/Autism: Partner (FOB sister with Autism), Recurrent Loss/Stillbirth: Other, Other Structural Defect: Other, Other Genetic Disease: Other and Maternal Metabolic Disorder: Other Infection History: Live with someone with TB or Exposed to TB: No, Patient or Partner has history of Genital Herpes: No, Rash or Viral illness since last mentrual period: No, Prior GBS-Infected child: No, History of STD: No, HIV Infection: No, History of Hepatitis: No (more content not included)... Normal [facility] Platelet countOrdered By: Byron Curry on 08-29-2024 Platelets (Bld) [#/Vol] 254 10*3/uL 150-450 [facility] RBC Auto (Bld) [#/Vol]Ordere d By: Shell Curry on 08-29-2024 RBC (Bld) [#/Vol] 4.31 10*6/uL 4.2-5.4 [facility] Rubella immune status determ ination by IgG antibody assayOrdered By: Shell Curry on 08-29-2024 Rubella IgG Antibody REAC Nonreactive [facility] Comment on above: Antibody Result: Int erpretationNon-Reactive: Non-ImmuneReactive: ImmuneThe following results were obtained with the Elecsys Rubella IgG assay. Results from assays of other manufacturers cannot be used interchangeably. Service comment (Unsp spec) [Interp]Ordered By: Shell Curry on 08-29-2024 Pap Smear Comment (3) . . [facility] T. pallidum abOrdered By: Byron Curry on 08-29-2024 Syphilis Total Antibody Non-Reactive Nonreactiv e [facility] Type AND Screenon 08-29-2024 Ab SCREEN GEL Negative Normal [facility] Comment on above: Order Comment: N Performed By: #### M 100.2200, L3890.6006, L100.0100, L501.9985, L3890.6301, L7400.0353, L3890.6102, L7000.1800, L509.4006, L509.8002, BTS ####[facility] [address] [place], [address] Urine cultureOrdered By: Jeison Curry on 08-29-2024 Bacteria identified Cx Nom (U) Positive Abnormal [facility] White blood cell (WBC) count Ordered By: Shell Curry on 08-29-2024 WBC (Bld) [#/Vol] 8.9 10*3/uL 4.4-11.0 [facility] Emergency Department Summary on 06-16-2024 Emergency Department Summary [facility] Medical Records Department [address] [place] [address] Emergency Department Summary 06/16/24 MR#: [id number] Acct: [id number] Name: QUAN RODGERS KELTON Rep #: [id number] : 2000 24 From: Franco Ortiz DO PCP: Care Physician,No Primary Status:DEP ER Location: ED HPI History of Present Illness Chief Complaint: Laceration Narrative Narrative: Patient is a 24-year-old female with no significant medical history, presenting to the emergency department for a laceration to the distal tip of the right fourth finger. Patient dates she was cutting a tomato when she excellently cut the tip of her finger. Tetanus vaccination unknown. She has full range of motion. She was concerned because the bleeding would not stop. Here for evaluation. [facility] Medical History Arrest of dilation, delivered, current hospitalization delivery delivered Chorioamnionitis Home Medications ???Medication ???Instructions ???Recorded ???Last Taken ???Type NK 08/15/23 Unknown History Allergy/AdvReac Type Severity Reaction Status Date / Time No Known Allergies Allergy Verified 06/16/24 20:27 Surgical History History of section History of surgery Social History household members: spouse housing: house current occupational status: unemployed pets and animals: Yes Smoking Status: Never smoker second hand exposure: No alcohol intake: never substance use type: does not use caffeine: No seatbelt use: always do you feel safe at home: Yes additional social history: - Max ROS ROS ED ROS Narrative Constitutional: Negative for fever, chills, weight loss, weakness Eyes: Negative for vision loss, vision change, double vision ENT: Negative for any sore throat, ear pain, congestion Cardiovascular: Negative for any chest pain, tightness, palpitations Respiratory: Negative for any cough, sputum production, hemoptysis, dyspnea, dyspnea on exertion, orthopnea Gastrointestinal: Negative for any abdominal pain, nausea, vomiting, diarrhea, constipation, blood in stool, blood in vomit : Negative for any urinary frequency, dysuria, retention, blood in urine Muscle skeletal: Negative for any neck pain, back pain Neurological: Negative for any headache, syncope, dizziness Skin: Negative for any rashes, itching, abrasions. Positive for laceration to the distal tip of the right fourth finger Psychiatric: Negative for any depression, anxiety, stress, suicidal ideation, homicidal ideation Hematologic: Negative for any excessive bruising, easy bleeding EXAM Physical Exam Narrative Exam Narrative: Vital signs reviewed. Extremities: No peripheral edema, no signs of gross trauma or deformity. Active full range of motion of all extremities. Patient has what appears to be a small avulsion like laceration of the distal tip of the right fourth finger. The nailbed is intact, this is superficial have it is bleeding. This would not be able be sutured however this will heal from the inside out. There is no open fracture or tuft fracture. Neuro: Cranial nerves II through XII intact, no focal neurological deficits. Skin: Clean dry and intact with no rash, purpura, petechiae, vesicles or pustules. Backs/flank: No CVA tenderness, no midline spinal tenderness, no deformity. Psych: Normal mood and affect. No SI, HI or acute psychosis. Const Vital Signs: 06/16/24 20:27 Temperature 98 F Temperature Source Temporal Pulse Rate 87 Respiratory Rate 16 Blood Pressure 139/84 H Blood Pressure Mean 102 Pulse Ox 98 Positive well nourished and well developed General Appearance ED: well developed Physical Exam Const Vital Signs: 06/16/24 20:27 Temperature 98 F Temperature Source Temporal Pulse Rate 87 Respiratory Rate 16 Blood Pressure 139/84 H Blood Pressure Mean 102 Pulse Ox 98 MDM MDM Treatment and Re-Evaluation :: Differential diagnosis includes however is not limited to: Foreign body, open fracture, avulsion fracture, simple laceration Patient appears generally well, vital signs are stable, patient is nontoxic-appearing . Presenting to the emergency department with complaints of avulsion like fracture of the distal tip of the right fourth finger. Patient received a digital block with lidocaine. Patient will be irrigated, patient will likely be placed in a Gelfoam dressing. Patient's wound was irrigated, I did cleanse the distal tip of the right fourth finger. I did place a Gelfoam splint, as well as provide a pressure dressing with tube gauze. Patient tolerated well. Patient was give (more content not included)... Normal [facility] Office Visit Reporton 2023 Office Visit Report [facility][1] Services [address] [place] [address] OFFICE VISIT Date of Service: 02/29/24 MR#: [id number] Acct: [id number] Patient: QUAN RODGERS KELTON Rep #: [id number] : 2000 Provider: CHANDNI Porter Age/Sex: 24/F Location[place] [facility] Status: Signed Intake Vital Signs 08/15/23 17:35 Height 5 ft 11 in Intake Visit Reasons: PE NON DOT DRUG SCREEN/ [facility] Chief Complaint: Depo Allergies No Known Allergies Allergy (Verified 08/15/23 17:37) Office Procedures [facility] Billing Sheet Testing Drug Screen Collection Only: Yes 04/03/24 0652 Date Frank Lainez Signature: Date (if applicable) CC: Normal [facility] Absolute lymphocyte counton 04-14-2022 Lymphocytes Auto (Unsp spec) [#/Vol] 2.17 10*3/uL 0.83-4.51 [facility] Work Phone: Basophil percentageon 2021 Basophils/100 WBC (Bld) 0.6 % 0-1 [facility] Work Phone: Eosinophils/100 WBC (Bld) 2.6 % 0-5 [facility] Work Phone: Neutrophils (Bld) [#/Vol] 4.0 10*3/uL 2.0-7.7 [facility] Work Phone: Neutrophils/100 WBC (Bld) 56.8 % 47-70 [facility] Work Phone: WBC (Bld) [#/Vol] 7.0 10*3/uL 4.4-11.0 [facility] Work Phone: Beta hCG serum qualon 2021 Beta HCG ( test) Ql Negative [facility] Work Phone: Blood erythrocytes count (nu mber/volume)on 04-14-2022 RBC (Bld) [#/Vol] 4.46 10*6/uL 4.2-5.4 [facility] Work Phone: Blood hemoglobin measurement (mass/volume)on 04-14-2022 Hemoglobin (Bld) [Mass/Vol] 13.1 g/dL 12.0-15.0 [facility] Work Phone: Blood lymphocytes/100 leukoc yteson 04-14-2022 Lymphocytes/100 WBC (Bld) 30.9 % 19-41 [facility] Work Phone: Blood monocytes/100 leukocyt eson 04-14-2022 Monocytes/100 WBC (Bld) 9.0 % 0-10 [facility] Work Phone: [phone] Blood platelet mean volumeon 04-14-2022 Platelet mean volume (Bld) [Entitic vol] 11.0 fL 6.2-12.0 [facility] Work Phone: Determination of erythrocyte mean corpuscular volume (MCV)on 04-14-2022 MCV (RBC) [Entitic vol] 86.1 fL 81-99 [facility] Work Phone: [phone] Hematocrit Auto (Bld) [Volum e fraction]on 04-14-2022 Hematocrit (Bld) [Volume fraction] 38.4 % 37-47 [facility] Work Phone: Laboratory - Hematology and Cell countson 04-14-2022 Erythrocyte distribution width (RBC) [Entitic vol] 40.1 fL 35.1-43.9 [facility] Work Phone: [phone] Erythrocyte distribution width (RBC) [Ratio] 12.8 % 11.6-14.6 [facility] Work Phone: [phone] Immature granulocytes/100 WBC (Bld) 0.100 % 0.0-0.9 [facility] Work Phone: [phone] Comment on above: IG% - Immature Granu locytes (promyelocytes, myelocytes and metamyelocytes) > 1% indicates that a LEFT SHIFT is Present. MCH (RBC) [Entitic mass] 29.4 pg 27.0-32.0 [facility] Work Phone: Nucleated RBC/100 WBC (Bld) [Ratio] 0 % 0-5 [facility] Work Phone: [phone] MCHC Auto (RBC) [Mass/Vol]on 04-14-2022 MCHC (RBC) [Mass/Vol] 34.1 g/dL 32-36 [facility] Work Phone: Platelets bldon 04-14-2022 Platelets (Bld) [#/Vol] 276 10*3/uL 150-450 [facility] Work Phone: Basophil percentageon 2021 WBC (Bld) [#/Vol] 23.7 10*3/uL 4.4-11.0 [facility] Work Phone: Blood erythrocytes count (nu mber/volume)on 11-07-2021 RBC (Bld) [#/Vol] 3.87 10*6/uL 4.2-5.4 [facility] Work Phone: Blood hemoglobin measurement (mass/volume)on 11-07-2021 Hemoglobin (Bld) [Mass/Vol] 12.0 g/dL 12.0-15.0 [facility] Work Phone: [phone] Blood platelet mean volumeon 11-07-2021 Platelet mean volume (Bld) [Entitic vol] 12.0 fL 6.2-12.0 [facility] Work Phone: Determination of erythrocyte mean corpuscular volume (MCV)on 11-07-2021 MCV (RBC) [Entitic vol] 93.0 fL 81-99 [facility] Work Phone: [phone] Hematocrit Auto (Bld) [Volum e fraction]on 11-07-2021 Hematocrit (Bld) [Volume fraction] 36.0 % 37-47 [facility] Work Phone: Laboratory - Hematology and Cell countson 11-07-2021 Erythrocyte distribution width (RBC) [Entitic vol] 43.1 fL 35.1-43.9 [facility] Work Phone: [phone] Erythrocyte distribution width (RBC) [Ratio] 12.8 % 11.6-14.6 [facility] Work Phone: [phone] MCH (RBC) [Entitic mass] 31.0 pg 27.0-32.0 [facility] Work Phone: MCHC Auto (RBC) [Mass/Vol]on 11-07-2021 MCHC (RBC) [Mass/Vol] 33.3 g/dL 32-36 [facility] Work Phone: Platelets bldon 11-07-2021 Platelets (Bld) [#/Vol] 165 10*3/uL 150-450 [facility] Work Phone: Absolute lymphocyte counton 11-06-2021 Lymphocytes Auto (Unsp spec) [#/Vol] 1.11 10*3/uL 0.83-4.51 [facility] Work Phone: Basophil percentageon 2021 Basophils/100 WBC (Bld) 0.2 % 0-1 [facility] Work Phone: Eosinophils/100 WBC (Bld) 0.0 % 0-5 [facility] Work Phone: Neutrophils (Bld) [#/Vol] 25.1 10*3/uL 2.0-7.7 [facility] Work Phone: Neutrophils/100 WBC (Bld) 91.0 % 47-70 [facility] Work Phone: Blood lymphocytes/100 leukoc yteson 11-06-2021 Lymphocytes/100 WBC (Bld) 4.0 % 19-41 [facility] Work Phone: [phone] Blood monocytes/100 leukocyt eson 11-06-2021 Monocytes/100 WBC (Bld) 4.3 % 0-10 [facility] Work Phone: Laboratory - Hematology and Cell countson 11-06-2021 Immature granulocytes/100 WBC (Bld) 0.500 % 0.0-0.9 [facility] Work Phone: Comment on above: IG% - Immature Granu locytes (promyelocytes, myelocytes and metamyelocytes) > 1% indicates that a LEFT SHIFT is Present. Nucleated RBC/100 WBC (Bld) [Ratio] 0 % 0-5 [facility] Work Phone: Laboratory - Chemistry and C hemistry - challengeon 10-26-2021 Glucose Ql (U) Negative [facility] Work Phone: Laboratory - Urinalysison Protein Ql (U) Negative [facility] Work Phone: Basophil percentageon 2021 Basophil percentage 0 SEEN /hpf [facility] Work Phone: Bilirubin Test strip Ql (U)o n 10-17-2021 Bilirubin Ql (U) Negative Negative [facility] Work Phone: Culture, urineon 10-17-2021 Bacteria identified Cx Nom (U) Positive [facility] Work Phone: Ketones Test strip Ql (U)on 10-17-2021 Ketones Ql (U) Negative Negative [facility] Work Phone: Mucus LM Ql (Urine sed)on Mucus Ql (Urine sed) 0 SEEN /hpf [facility] Work Phone: Nitrite Test strip Ql (U)on 10-17-2021 Nitrite Ql (U) Negative Negative [facility] Work Phone: Protein Test strip Ql (U)on 10-17-2021 Protein Ql (U) Negative Negative [facility] Work Phone: Squamous epithelial cells de tection in urine sediment by light microscopyon 10-17-2021 Epithelial cells.squamous LM Ql (Urine sed) 0-5 SEEN /hpf [facility] Work Phone: Urine blood detectionon 09-25 RBC Ql (U) Negative Negative [facility] Work Phone: RBC Ql (U) 0 SEEN /hpf [facility] Work Phone: Urine clarityon 10-17-2021 Clarity (U) Clear Clear [facility] Work Phone: Urine color determinationon 10-17-2021 Color (U) Yellow Yellow [facility] Work Phone: Urine glucose detectionon 04 -24-2022 Glucose Ql (U) Normal mg/dl Normal [facility] Work Phone: Urine leukocyte esterase det ection by dipstickon 10-17-2021 Leukocyte esterase Test strip Ql (U) Negative Negative [facility] Work Phone: Urine pHon 10-17-2021 pH (U) 8.0 [pH] [facility] Work Phone: Urine sediment bacteria coun t by microscopy (number/high power field)on 10-17-2021 Bacteria LM.HPF (Urine sed) [#/Area] 1 /[HPF] None Seen [facility] Work Phone: Urine specific gravity measu rementon 10-17-2021 Specific gravity (U) [Rel density] 1.010 [facility] Work Phone: Urobilinogen Auto test strip Ql (U)on 10-17-2021 Urobilinogen Ql (U) Normal mg/dl Normal [facility] Work Phone: Laboratory - Chemistry and C hemistry - challengeon 10-12-2021 Glucose Ql (U) Negative [facility] Work Phone: Laboratory - Urinalysison Protein Ql (U) Negative [facility] Work Phone: Laboratory - Chemistry and C hemistry - challengeon 10-06-2021 Glucose Ql (U) Negative [facility] Work Phone: Laboratory - Urinalysison Protein Ql (U) Negative [facility] Work Phone: No Panel Informationon 10-06 Group B Streptococcus Culture Group B Beta Streptococcus is not isolated. [facility] Work Phone: Laboratory - Chemistry and C hemistry - challengeon 09-21-2021 Glucose Ql (U) Negative [facility] Work Phone: Laboratory - Urinalysison Protein Ql (U) Negative [facility] Work Phone: Laboratory - Chemistry and C hemistry - challengeon 09-06-2021 Glucose Ql (U) Negative [facility] Work Phone: Laboratory - Urinalysison Protein Ql (U) Negative [facility] Work Phone: Laboratory - Chemistry and C hemistry - challengeon 08-23-2021 Glucose Ql (U) Negative [facility] Work Phone: Laboratory - Urinalysison Protein Ql (U) Negative [facility] Work Phone: Absolute lymphocyte counton 08-10-2021 Lymphocytes Auto (Unsp spec) [#/Vol] 1.72 10*3/uL 0.83-4.51 [facility] Work Phone: Basophil percentageon 2021 Basophils/100 WBC (Bld) 0.3 % 0-1 [facility] Work Phone: Eosinophils/100 WBC (Bld) 1.0 % 0-5 [facility] Work Phone: Neutrophils (Bld) [#/Vol] 6.9 10*3/uL 2.0-7.7 [facility] Work Phone: Neutrophils/100 WBC (Bld) 73.2 % 47-70 [facility] Work Phone: WBC (Bld) [#/Vol] 9.4 10*3/uL 4.4-11.0 [facility] Work Phone: Blood erythrocytes count (nu mber/volume)on 08-10-2021 RBC (Bld) [#/Vol] 4.08 10*6/uL 4.2-5.4 [facility] Work Phone: Blood hemoglobin measurement (mass/volume)on 08-10-2021 Hemoglobin (Bld) [Mass/Vol] 12.7 g/dL 12.0-15.0 [facility] Work Phone: Blood lymphocytes/100 leukoc yteson 08-10-2021 Lymphocytes/100 WBC (Bld) 18.2 % 19-41 [facility] Work Phone: Blood monocytes/100 leukocyt eson 08-10-2021 Monocytes/100 WBC (Bld) 6.8 % 0-10 [facility] Work Phone: [phone] Blood platelet mean volumeon 08-10-2021 Platelet mean volume (Bld) [Entitic vol] 11.7 fL 6.2-12.0 [facility] Work Phone: [phone] Determination of erythrocyte mean corpuscular volume (MCV)on 08-10-2021 MCV (RBC) [Entitic vol] 91.7 fL 81-99 [facility] Work Phone: [phone] Gestational diabetes screen 1-hour screen with 50g oral glucose loadon 08-10-2021 Glucose 1 Hr post 50 g glucose PO [Mass/Vol] 121 mg/dL 70-140 [facility] Work Phone: [phone] Hematocrit Auto (Bld) [Volum e fraction]on 08-10-2021 Hematocrit (Bld) [Volume fraction] 37.4 % 37-47 [facility] Work Phone: [phone] Laboratory - Chemistry and C hemistry - challengeon 08-10-2021 Glucose Ql (U) Negative [facility] Work Phone: [phone] Laboratory - Hematology and Cell countson 08-10-2021 Erythrocyte distribution width (RBC) [Entitic vol] 42.6 fL 35.1-43.9 [facility] Work Phone: [phone] Erythrocyte distribution width (RBC) [Ratio] 12.7 % 11.6-14.6 [facility] Work Phone: [phone] Immature granulocytes/100 WBC (Bld) 0.500 % 0.0-0.9 [facility] Work Phone: [phone] Comment on above: IG% - Immature Granu locytes (promyelocytes, myelocytes and metamyelocytes) > 1% indicates that a LEFT SHIFT is Present. MCH (RBC) [Entitic mass] 31.1 pg 27.0-32.0 [facility] Work Phone: Nucleated RBC/100 WBC (Bld) [Ratio] 0 % 0-5 [facility] Work Phone: Laboratory - Urinalysison Protein Ql (U) Negative [facility] Work Phone: MCHC Auto (RBC) [Mass/Vol]on 08-10-2021 MCHC (RBC) [Mass/Vol] 34.0 g/dL 32-36 [facility] Work Phone: Platelets bldon 08-10-2021 Platelets (Bld) [#/Vol] 185 10*3/uL 150-450 [facility] Work Phone: Laboratory - Chemistry and C hemistry - challengeon 07-14-2021 Glucose Ql (U) Negative [facility] Work Phone: Laboratory - Urinalysison Protein Ql (U) Negative [facility] Work Phone: B-HCG SerPl-[facility] [place] [address].0 m[IU]/mL High <5.0 [facility] Comment on above: Order Comment: Speci men Type: BLOOD SPECIMEN Result Comment: LETICIA TITATIVE HCG NORMAL RANGES Weeks of Gestation (Weeks Since LMP) 3 Weeks (5.8-71.2 mIU/mL) 4 Weeks (9.5-750 mIU/mL) 5 Weeks (217-7138 mIU/mL) 6 Weeks (158-27470 mIU/mL) 7 Weeks (3697-931919 mIU/mL) 8 Weeks (29456-785483 mIU/mL) 9 Weeks (56650-483553 mIU/mL) 10 Weeks (53924-122949 mIU/mL) 12 Weeks (15998-550695 mIU/mL) Referenced to 4th IS of LOCATED WITHIN [facility] Performed By: #### 2 1198-7 #### [facility] CLIA [id number] [address] [place] [address] [place] GC/CHLAMYDIA DNA DETon 04-09 C. trachomatis DNA DEVENDRA+probe Ql (Unsp spec) Negative Normal Negative for Chlamydia trachomatis by amplificaton [facility] Comment on above: Performed By: #### G CCT #### [facility] CLIA [id number] [address] N. gonorrhoeae DNA DEVENDRA+probe Ql (Unsp spec) Negative Normal Negative for Neisseria gonorrhoeae by amplification [facility] Comment on above: Performed By: #### G CCT #### [facility] CLIA [id number] [address] RAPID BACT VAGINOSIS (AK)on 04-09-2021 Bacterial sialidase Ql (Unsp spec) Negative Normal Negative for the presence of bacterial vaginosis. [facility] Comment on above: Order Comment: Speci men Type: MICROBIAL ISOLATE Performed By: #### R APBVAG #### [facility] CLIA [id number] [address] T vaginalis Ag Genital Ql IA on 04-09-2021 T. vaginalis Ag IA Ql (Genital specimen) TRICHOMONAS PREP RESULT: Negative for Trichomonas vaginalis antigen Normal [facility] Comment on above: Performed By: #### 6 566-4 #### [facility] CLIA [id number] [address] [place] [address] TYPE AND SCREENon 04-09-2021 ABO O Normal [facility] Comment on above: Order Comment: Speci men Type: BLOOD SPECIMEN Performed By: #### T SCR #### [facility] CLIA [id number] [address] HISTORICAL AB SCR STATUS Negative Normal [facility] Comment on above: Order Comment: Speci men Type: BLOOD SPECIMEN Performed By: #### T SCR #### [facility] CLIA [id number] [address] Rh Nom (Bld) Positive Normal [facility] Comment on above: Order Comment: Speci men Type: BLOOD SPECIMEN Performed By: #### T SCR #### [facility] CLIA [id number] 1 [place], [place] [address] [place] [address] TYPE AND SCREEN EXPIRATION 04/12/2021 23:59 Normal [facility] Comment on above: Order Comment: Speci men Type: BLOOD SPECIMEN Performed By: #### T SCR #### [facility] CLIA [id number] [address] Urinalysis complete panel (U )on 04-09-2021 Bacteria LM.HPF (Urine sed) [#/Area] Few Abnormal None Seen [facility] Comment on above: Order Comment: Speci men Type: URINE SPECIMEN Performed By: #### 2 4356-8 #### [facility] CLIA [id number] [address] [place] [address] [place] Bilirubin Ql (U) Negative Normal Negative [facility] Comment on above: Order Comment: Speci men Type: URINE SPECIMEN Performed By: #### 2 4356-8 #### [facility] CLIA [id number] [address] [place] [address] [place] Clarity (Unsp spec) Clear Normal Clear [facility] Comment on above: Order Comment: Speci men Type: URINE SPECIMEN Performed By: #### 2 4356-8 #### [facility] CLIA [id number] [address] [place] [address] [place] Color (U) Yellow Normal Yellow [facility] Comment on above: Order Comment: Speci men Type: URINE SPECIMEN Performed By: #### 2 4356-8 #### [facility] CLIA [id number] [address] [place] [address] [place] Epithelial cells LM.HPF (Urine sed) [#/Area] Few Normal [facility] Comment on above: Order Comment: Speci men Type: URINE SPECIMEN Performed By: #### 2 4356-8 #### [facility] CLIA [id number] [address] [facility] [place] [address] [facility] [place] Glucose Test strip (U) [Mass/Vol] Negative Normal Negative [facility] Comment on above: Order Comment: Speci men Type: URINE SPECIMEN Performed By: #### 2 4356-8 #### [facility] CLIA [id number] [address] [facility] [facility] [facility] [place] [place] [address] [place] Hemoglobin Ql (U) Trace Abnormal Negative [facility] Comment on above: Order Comment: Speci men Type: URINE SPECIMEN Performed By: #### 2 4356-8 #### [facility] CLIA [id number] [address] [facility] [facility] [place] [address] [place] Ketones Ql (U) Negative Normal Negative [facility] Comment on above: Order Comment: Speci men Type: URINE SPECIMEN Performed By: #### 2 4356-8 #### [facility] CLIA [id number] [address] [place] [address] [place] Leukocyte esterase Test strip Ql (U) Negative Normal Negative [facility] Comment on above: Order Comment: Speci men Type: URINE SPECIMEN Performed By: #### 2 4356-8 #### [facility] CLIA [id number] [address] [facility] [facility] [place] [address] [place] Nitrite Ql (U) Negative Normal Negative [facility] Comment on above: Order Comment: Speci men Type: URINE SPECIMEN Performed By: #### 2 4356-8 #### [facility] CLIA [id number] [address] [place] [address] [place] pH (U) 7.5 [pH] Normal 5.0-8.0 [facility] Comment on above: Order Comment: Speci men Type: URINE SPECIMEN Performed By: #### 2 4356-8 #### [facility] CLIA [id number] [address] [facility] [place] [place] [address] [place] Protein (U) [Mass/Vol] Negative Normal Negative [facility] Comment on above: Order Comment: Speci men Type: URINE SPECIMEN Performed By: #### 2 4356-8 #### [facility] CLIA [id number] [address] [place] [address] [facility] RBC LM.HPF (Urine sed) [#/Area] 0-3 /HPF Normal 0-3 /HPF [facility] Comment on above: Order Comment: Speci men Type: URINE SPECIMEN Performed By: #### 2 4356-8 #### [facility] CLIA [id number] [address] [place] [address] [facility] Specific gravity (U) [Rel density] 1.020 Normal 1.005-1.030 [facility] Comment on above: Order Comment: Speci men Type: URINE SPECIMEN Performed By: #### 2 4356-8 #### [facility] CLIA [id number] [address] [place] [address] [facility] Urobilinogen Ql (U) 1.0 EU/dL Normal 0.2-1.0 EU/dL [facility] Comment on above: Order Comment: Speci men Type: URINE SPECIMEN Performed By: #### 2 4356-8 #### [facility] CLIA [id number] [address] [place], [place] [address] [place] [address] WBC LM.HPF (Urine sed) [#/Area] 0-5 /HPF Normal 0-5 /HPF [facility] Comment on above: Order Comment: Speci men Type: URINE SPECIMEN Performed By: #### 2 4356-8 #### [facility] CLIA [id number] [address] [place], [place] [address] [place] [address] .Urinalysis Microscopic (AO) on 12-22-2020 UA Bacteria 1+ /hpf Abnormal On [facility] Of [facility] [place] Comment on above: Performed By: #### U A, PREGU, UAMICAO #### Med [address] [address] UA Mucous 4+ /hpf Normal On [facility] [place] Comment on above: Performed By: #### U A, PREGU, UAMICAO #### Med [address] [address] UA RBC 0-5 Abnormal None Seen [facility] [place] Comment on above: Performed By: #### U A, PREGU, UAMICAO #### [address] [address] UA Squam Epithelial LOADED Abnormal None Seen [facility] ([place] Comment on above: Performed By: #### U A, PREGU, UAMICAO #### [place] [id number] UA WBC 0-5 Abnormal None Seen On License Of [facility] ([place] Comment on above: Performed By: #### U A, PREGU, UAMICAO #### [place] [address] PREGUon 12-22-2020 HCG ( test) Ql (U) Negative Normal On [facility] [place] Comment on above: Performed By: #### U A, PREGU, UAMICAO #### [place] [address] test (u) int Not detected Invalid Interpretation Code On [facility] Of [facility] [place] Comment on above: Performed By: #### U A, PREGU, UAMICAO #### [place] [address] UAon 12-22-2020 Color (U) Yellow Normal On [facility] Of [facility] [place] Comment on above: Performed By: #### U A, PREGU, UAMICAO #### [place] [address] Glucose (U) [Mass/Vol] Negative Normal Negative [facility] ([place] Comment on above: Performed By: #### U A, PREGU, UAMICAO #### [place] [address] Ketones Ql (U) Negative Normal Negative On [facility] Of [facility] [place] Comment on above: Performed By: #### U A, PREGU, UAMICAO #### [place] [address] UA Appear Cloudy Abnormal Clear On [facility] Of [facility] [place] Comment on above: Performed By: #### U A, PREGU, UAMICAO #### [address] [address] UA Blood Negative Normal Negative On [facility] Of [facility] [place] Comment on above: Performed By: #### U A, PREGU, UAMICAO #### [address] [address] UA Leuk Est Negative Normal Negative On [facility] Of [facility] [place] Comment on above: Performed By: #### U A, PREGU, UAMICAO #### [address] [address] UA Nitrite Negative Normal Negative On [facility] Of [facility] [place] Comment on above: Performed By: #### U A, PREGU, [place]AM[place]O #### [place] [address] UA pH 6.0 Normal 5.0 - 8.0 On [facility] Of [facility] [place] Comment on above: Performed By: #### U A, PREGU, UAMICAO #### [place] [address] UA Protein Negative Normal Negative On [facility] Of [facility] [place] Comment on above: Performed By: #### U A, PREGU, UAMICAO #### [place] [address] UA Spec Grav >=1.030 Abnormal 1.015-1.025 On License Of [facility] [place] Comment on above: Performed By: #### U A, PREGU, UAMICAO #### [place] [address] UA Specimen Type Clean Catch Normal On [facility] Of [facility] [place] Comment on above: Performed By: #### U A, PREGU, UAMICAO #### [place] [address] UA Urobilinogen 0.2 E.U./dL Normal 0.2-1.0 On [facility] Of [facility] [place] Comment on above: Performed By: #### U A, PREGU, UAMICAO #### [address] [place] [address] Urobilinogen (U) [Mass/Vol] Negative Normal Negative On License Of [facility] [place] Comment on above: Performed By: #### U TAMIKO Hussein UAMICAO #### Med [place] [address] [place], [place] [address] COVID PCR, SCREENING CONGREG ATEon 12-19-2019 CORONAVIRUS 2019,PCR NOT DETECTED Normal Not Detected [facility] Comment on above: Result Comment: This assay is designed to detect the N, ORF1ab and/or S genes of SARS-CoV-2 via nucleic acid amplification. A Negative (NOT DETECTED) result does not preclude 2019-nCoV infection since the adequacy of sample collection and/or low viral burden may result in presence of viral nucleic acids below the clinical sensitivity of this test method. Negative (NOT DETECTED) result should not be used as the sole basis for treatment or other patient management decisions. Rather negative results should be combined with clinical observations, patient history, and epidemiological information to make patient management decisions. Fact sheet for providers: https://www.fda.gov/media/459485/download Fact sheet for patients: https://www.fda.gov/media/943666/download This test has received FDA Emergency Use Authorization (EUA) and has been verified by [facility] ([facility]). This test is only authorized for the duration of time that circumstances exist to justify the authorization of the emergency use of in vitro diagnostic tests for the detection of SARS-CoV-2 virus and/or diagnosis of COVID-19 infection under section 564(b)(1) of the Act, 21 U.S.C. 360bbb-3(b)(1), unless the authorization is terminated or revoked sooner. [facility] ([facility]) is certified under CLIA-88 as qualified to perform high complexity testing. This tests analytical performance characteristics have been determined by [facility]. Testing is performed at [facility] is located at [address] [place] [address] (CLIA License #[id number], CAP #[id number]). Performed By: #### C VCLA #### [facility] [address] [place] [address] COVID PCR, SCREENING CONGREG ATEon 12-18-2019 Lab Specimen Source Nasal, Nasopharyngeal Normal [facility] Comment on above: Performed By: #### C VCLA #### [facility] [address] [place] [address] Vital Signs Date Time Vital Sign Value Performing Clinician [place] mendoza 01-06-2025 14:59-0400 Body height 177.8 cm No Primary Care Physician [facility] 01-06-2025 14:59-0400 Body mass index (BMI) [Ratio] 37.3 kg/m2 No Primary Care Physician [facility] 01-06-2025 14:59-0400 Body weight 118.16 kg No Primary Care Physician [facility] 01-06-2025 14:59-0400 Diastolic blood pressure 73 mm[Hg] No Primary Care Physician [facility] 01-06-2025 14:59-0400 Systolic blood pressure 108 mm[Hg] No Primary Care Physician [facility] 12-25-2024 10:52-0400 Heart rate 74 /min No Primary Care Physician [facility] 12-25-2024 10:52-0400 SaO2% (BldA) [Mass fraction] 97 % No Primary Care Physician [facility] 12-25-2024 10:05-0400 Body temperature 98.2 [degF] No Primary Care Physician [facility] 12-25-2024 10:05-0400 Diastolic blood pressure 63 mm[Hg] No Primary Care Physician [facility] 12-25-2024 10:05-0400 Respiratory rate 16 /min No Primary Care Physician [facility] 12-25-2024 10:05-0400 Systolic blood pressure 118 mm[Hg] No Primary Care Physician [facility] 12-25-2024 09:54-0400 Body height 177.8 cm No Primary Care Physician [facility] 12-25-2024 09:54-0400 Body mass index (BMI) [Ratio] 37.9 kg/m2 No Primary Care Physician [facility] 12-25-2024 09:54-0400 Body weight 120 kg No Primary Care Physician [facility] 12-25-2024 08:58-0400 Body height 180.34 cm No Primary Care Physician [facility] 12-25-2024 08:57-0400 Body mass index (BMI) [Ratio] 36.1 kg/m2 No Primary Care Physician [facility] 12-25-2024 08:57-0400 Body weight 117.59 kg No Primary Care Physician [facility] 12-25-2024 08:57-0400 Diastolic blood pressure 77 mm[Hg] No Primary Care Physician [facility] 12-25-2024 08:57-0400 Systolic blood pressure 117 mm[Hg] No Primary Care Physician [facility] 12-20-2024 08:29-0400 Body height 180.34 cm No Primary Care Physician [facility] 12-20-2024 08:29-0400 Body mass index (BMI) [Ratio] 36.5 kg/m2 No Primary Care Physician [facility] 12-20-2024 08:29-0400 Body weight 118.84 kg No Primary Care Physician [facility] 12-20-2024 08:29-0400 Diastolic blood pressure 78 mm[Hg] No Primary Care Physician [facility] 12-20-2024 08:29-0400 Systolic blood pressure 114 mm[Hg] No Primary Care Physician [facility] 11-21-2024 10:42-0400 Body height 180.34 cm No Primary Care Physician [facility] 11-21-2024 10:42-0400 Body mass index (BMI) [Ratio] 36.1 kg/m2 No Primary Care Physician [facility] 11-21-2024 10:42-0400 Body weight 117.48 kg No Primary Care Physician [facility] 11-21-2024 10:42-0400 Diastolic blood pressure 68 mm[Hg] No Primary Care Physician [facility] 11-21-2024 10:42-0400 Systolic blood pressure 113 mm[Hg] No Primary Care Physician [facility] 10-25-2024 18:55-0400 Body height 180.34 cm No Primary Care Physician [facility] 10-25-2024 18:55-0400 Body mass index (BMI) [Ratio] 36.1 kg/m2 No Primary Care Physician [facility] 10-25-2024 18:55-0400 Body temperature 97.9 [degF] No Primary Care Physician [facility] 10-25-2024 18:55-0400 Body weight 117.66 kg No Primary Care Physician [facility] 10-25-2024 18:55-0400 Diastolic blood pressure 79 mm[Hg] No Primary Care Physician [facility] 10-25-2024 18:55-0400 Heart rate 102 /min No Primary Care Physician [facility] 10-25-2024 18:55-0400 Respiratory rate 19 /min No Primary Care Physician [facility] 10-25-2024 18:55-0400 SaO2% (BldA) [Mass fraction] 98 % No Primary Care Physician [facility] 10-25-2024 18:55-0400 Systolic blood pressure 136 mm[Hg] No Primary Care Physician [facility] 10-21-2024 08:39-0400 Body mass index (BMI) [Ratio] 36 kg/m2 No Primary Care Physician [facility] 10-21-2024 08:39-0400 Body weight 117.08 kg No Primary Care Physician [facility] 10-21-2024 08:39-0400 Diastolic blood pressure 71 mm[Hg] No Primary Care Physician [facility] 10-21-2024 08:39-0400 Systolic blood pressure 115 mm[Hg] No Primary Care Physician [facility] 09-26-2024 13:48-0400 Body height 180.34 cm No Primary Care Physician [facility] 09-26-2024 13:47-0400 Body mass index (BMI) [Ratio] 35.9 kg/m2 No Primary Care Physician [facility] 09-26-2024 13:47-0400 Body weight 117.02 kg No Primary Care Physician [facility] 09-26-2024 13:47-0400 Diastolic blood pressure 73 mm[Hg] No Primary Care Physician [facility] 09-26-2024 13:47-0400 Systolic blood pressure 123 mm[Hg] No Primary Care Physician [facility] 09-04-2024 10:55-0400 Body height 180.34 cm No Primary Care Physician [facility] 09-04-2024 10:54-0400 Body mass index (BMI) [Ratio] 35.6 kg/m2 No Primary Care Physician [facility] 09-04-2024 10:54-0400 Body weight 115.77 kg No Primary Care Physician [facility] 09-04-2024 10:54-0400 Diastolic blood pressure 73 mm[Hg] No Primary Care Physician [facility] 09-04-2024 10:54-0400 Systolic blood pressure 113 mm[Hg] No Primary Care Physician [facility] 08-30-2024 02:37-0500 Body temperature 98 [degF] No Primary Care Physician [facility] 08-30-2024 02:37-0500 Diastolic blood pressure 74 mm[Hg] No Primary Care Physician [facility] 08-30-2024 02:37-0500 Heart rate 73 /min No Primary Care Physician [facility] 08-30-2024 02:37-0500 Respiratory rate 18 /min No Primary Care Physician [facility] 08-30-2024 02:37-0500 SaO2% (BldA) [Mass fraction] 100 % No Primary Care Physician [facility] 08-30-2024 02:37-0500 Systolic blood pressure 130 mm[Hg] No Primary Care Physician [facility] 08-30-2024 00:40-0500 Body height 180.34 cm No Primary Care Physician [facility] 08-30-2024 00:40-0500 Body mass index (BMI) [Ratio] 16.5 kg/m2 No Primary Care Physician [facility] 08-30-2024 00:40-0500 Body weight 53.72 kg No Primary Care Physician [facility] 08-29-2024 11:11-0500 Body mass index (BMI) [Ratio] 37.2 kg/m2 No Primary Care Physician [facility] 08-29-2024 11:11-0500 Body weight 117.65 kg No Primary Care Physician [facility] 08-29-2024 11:11-0500 Diastolic blood pressure 78 mm[Hg] No Primary Care Physician [facility] 08-29-2024 11:11-0500 Systolic blood pressure 121 mm[Hg] No Primary Care Physician [facility] 06-16-2024 21:22-0500 Body temperature 98 [degF] No Primary Care Physician [facility] 06-16-2024 21:22-0500 Diastolic blood pressure 84 mm[Hg] No Primary Care Physician [facility] 06-16-2024 21:22-0500 Heart rate 80 /min No Primary Care Physician [facility] 06-16-2024 21:22-0500 Respiratory rate 16 /min No Primary Care Physician [facility] 06-16-2024 21:22-0500 SaO2% (BldA) [Mass fraction] 98 % No Primary Care Physician [facility] 06-16-2024 21:22-0500 Systolic blood pressure 130 mm[Hg] No Primary Care Physician [facility] 06-16-2024 20:27-0500 Body mass index (BMI) [Ratio] 36.8 kg/m2 No Primary Care Physician [facility] 06-16-2024 20:27-0500 Body weight 116.66 kg No Primary Care Physician [facility] 08-15-2023 19:40-0500 Body temperature 97.2 [degF] [facility] 08-15-2023 19:40-0500 Diastolic blood pressure 71 mm[Hg] [facility] 08-15-2023 19:40-0500 Heart rate 62 /min [facility] 08-15-2023 19:40-0500 Respiratory rate 12 /min [facility] 08-15-2023 19:40-0500 SaO2% (BldA) [Mass fraction] 99 % [facility] 08-15-2023 19:40-0500 Systolic blood pressure 122 mm[Hg] [facility] 08-15-2023 17:35-0500 Body height 180.34 cm [facility] 08-15-2023 17:35-0500 Body mass index (BMI) [Ratio] 38.5 kg/m2 [facility] 08-15-2023 17:35-0500 Body weight 125.24 kg [facility] 04-14-2022 16:16-0400 Body height 180.34 cm No Primary Care Physician [facility] Work Phone: 04-14-2022 16:16-0400 Body mass index (BMI) [Ratio] 30.7 kg/m2 No Primary Care Physician [facility] Work Phone: 04-14-2022 16:16-0400 Body temperature 98.1 [degF] No Primary Care Physician [facility] Work Phone: 04-14-2022 16:16-0400 Body weight 99.79 kg No Primary Care Physician [facility] Work Phone: 04-14-2022 16:16-0400 Diastolic blood pressure 90 mm[Hg] No Primary Care Physician [facility] Work Phone: 04-14-2022 16:16-0400 Heart rate 109 /min No Primary Care Physician [facility] Work Phone: 04-14-2022 16:16-0400 Respiratory rate 18 /min No Primary Care Physician [facility] Work Phone: 04-14-2022 16:16-0400 SaO2% (BldA) [Mass fraction] 97 % No Primary Care Physician [facility] Work Phone: 04-14-2022 16:16-0400 Systolic blood pressure 140 mm[Hg] No Primary Care Physician [facility] Work Phone: 12-21-2021 14:42-0400 Body mass index (BMI) [Percentile] Per age and sex 96.7 % No Primary Care Physician [facility] Work Phone: 12-21-2021 14:42-0400 Body mass index (BMI) [Ratio] 34.2 kg/m2 No Primary Care Physician [facility] Work Phone: 12-21-2021 14:42-0400 Body weight 111.24 kg No Primary Care Physician [facility] Work Phone: 12-21-2021 14:42-0400 Diastolic blood pressure 70 mm[Hg] No Primary Care Physician [facility] Work Phone: 12-21-2021 14:42-0400 Systolic blood pressure 110 mm[Hg] No Primary Care Physician [facility] Work Phone: 11-08-2021 12:23-0400 Body temperature 97.8 [degF] DO [facility] Work Phone: 11-08-2021 12:23-0400 Diastolic blood pressure 86 mm[Hg] DO [facility] Work Phone: 11-08-2021 12:23-0400 Heart rate 106 /min DO [facility] Work Phone: 11-08-2021 12:23-0400 Respiratory rate 16 /min DO [facility] Work Phone: 11-08-2021 12:23-0400 SaO2% (BldA) [Mass fraction] 100 % DO [facility] Work Phone: 11-08-2021 12:23-0400 Systolic blood pressure 141 mm[Hg] DO [facility] Work Phone: 11-04-2021 19:28-0400 Body height 180.34 cm DO [facility] Work Phone: 11-04-2021 19:28-0400 Body mass index (BMI) [Ratio] 37.8 kg/m2 DO [facility] Work Phone: 11-04-2021 19:28-0400 Body weight 123.03 kg DO [facility] Work Phone: 10-26-2021 13:44-0400 Body mass index (BMI) [Ratio] 43 kg/m2 DO [facility] Work Phone: 10-26-2021 13:44-0400 Body weight 120.82 kg DO [facility] Work Phone: 10-26-2021 13:44-0400 Diastolic blood pressure 78 mm[Hg] DO [facility] Work Phone: 10-26-2021 13:44-0400 Systolic blood pressure 104 mm[Hg] DO [facility] Work Phone: 10-18-2021 13:13-0400 Body mass index (BMI) [Ratio] 42.3 kg/m2 DO [facility] Work Phone: 10-18-2021 13:13-0400 Body weight 118.84 kg DO [facility] Work Phone: 10-18-2021 13:13-0400 Diastolic blood pressure 82 mm[Hg] DO [facility] Work Phone: 10-18-2021 13:13-0400 Systolic blood pressure 132 mm[Hg] DO [facility] Work Phone: 10-17-2021 18:45-0400 Body temperature 98 [degF] DO [facility] Work Phone: 10-17-2021 18:43-0400 Diastolic blood pressure 71 mm[Hg] DO [facility] Work Phone: 10-17-2021 18:43-0400 Heart rate 83 /min DO [facility] Work Phone: 10-17-2021 18:43-0400 Systolic blood pressure 119 mm[Hg] DO [facility] Work Phone: 10-17-2021 16:28-0400 Diastolic blood pressure 68 mm[Hg] DO [facility] Work Phone: 10-17-2021 16:28-0400 Heart rate 93 /min DO [facility] Work Phone: 10-17-2021 16:28-0400 Systolic blood pressure 98 mm[Hg] DO [facility] Work Phone: 10-17-2021 15:29-0400 Body height 180.34 cm DO [facility] Work Phone: 10-17-2021 15:29-0400 Body mass index (BMI) [Ratio] 36.3 kg/m2 DO [facility] Work Phone: 10-17-2021 15:29-0400 Body weight 118 kg DO [facility] Work Phone: 10-17-2021 15:25-0400 Body temperature 96.9 [degF] DO [facility] Work Phone: 10-12-2021 13:39-0400 Body mass index (BMI) [Ratio] 43 kg/m2 DO [facility] Work Phone: 10-12-2021 13:39-0400 Body weight 120.88 kg DO [facility] Work Phone: 10-12-2021 13:39-0400 Diastolic blood pressure 70 mm[Hg] DO [facility] Work Phone: 10-12-2021 13:39-0400 Systolic blood pressure 110 mm[Hg] DO [facility] Work Phone: 10-06-2021 11:18-0400 Body mass index (BMI) [Ratio] 42.2 kg/m2 DO [facility] Work Phone: 10-06-2021 11:18-0400 Body weight 118.55 kg DO [facility] Work Phone: 10-06-2021 11:18-0400 Diastolic blood pressure 70 mm[Hg] DO [facility] Work Phone: 10-06-2021 11:18-0400 Systolic blood pressure 104 mm[Hg] DO [facility] Work Phone: 09-21-2021 14:02-0400 Body mass index (BMI) [Ratio] 42.2 kg/m2 DO [facility] Work Phone: 09-21-2021 14:02-0400 Body weight 118.61 kg DO [facility] Work Phone: 09-21-2021 14:02-0400 Diastolic blood pressure 88 mm[Hg] DO [facility] Work Phone: 09-21-2021 14:02-0400 Systolic blood pressure 118 mm[Hg] DO [facility] Work Phone: 09-06-2021 13:02-0400 Body mass index (BMI) [Ratio] 41.3 kg/m2 DO [facility] Work Phone: 09-06-2021 13:02-0400 Body weight 116.11 kg DO [facility] Work Phone: 09-06-2021 13:02-0400 Diastolic blood pressure 78 mm[Hg] DO [facility] Work Phone: 09-06-2021 13:02-0400 Systolic blood pressure 112 mm[Hg] DO [facility] Work Phone: 08-23-2021 11:57-0500 Body mass index (BMI) [Ratio] 41 kg/m2 DO [facility] Work Phone: 08-23-2021 11:57-0500 Body weight 115.21 kg DO [facility] Work Phone: 08-23-2021 11:57-0500 Diastolic blood pressure 74 mm[Hg] DO [facility] Work Phone: 08-23-2021 11:57-0500 Systolic blood pressure 113 mm[Hg] DO [facility] Work Phone: 08-10-2021 08:08-0500 Body mass index (BMI) [Ratio] 40.1 kg/m2 DO [facility] Work Phone: 08-10-2021 08:08-0500 Body weight 112.71 kg DO [facility] Work Phone: 08-10-2021 08:08-0500 Diastolic blood pressure 74 mm[Hg] DO [facility] Work Phone: 08-10-2021 08:08-0500 Systolic blood pressure 110 mm[Hg] DO [facility] Work Phone: 07-14-2021 10:06-0500 Body mass index (BMI) [Ratio] 39.4 kg/m2 DO [facility] Work Phone: 07-14-2021 10:06-0500 Body weight 110.67 kg DO [facility] Work Phone: 07-14-2021 10:06-0500 Diastolic blood pressure 82 mm[Hg] DO [facility] Work Phone: 07-14-2021 10:06-0500 Systolic blood pressure 118 mm[Hg] DO [facility] Work Phone: Encounters Encounter Date Encounter Type Care Provider Facility Start: 01-06-2025 End: 01-06-2025 ambulatory No Primary Care Physician -[facility] Start: 01-06-2025 End: 01-06-[address] Renate Handley MD -[facility] Work Phone: Start: 12-25-2024 ambulatory Raven Steenty:[facility] Start: 12-25-2024 Non-patient / Non-visit Dr. Raven Modi DO -[facility] Start: 12-25-2024 End: 12-25-2024 ambulatory No Primary Care Physician -Laboratory Specimen Start: 12-25-2024 End: 12-25-[address] Raven Modi DO -Laboratory Specimen Work Phone: Start: 12-25-2024 End: 12-25-[address] Raven Modi DO -[facility] Work Phone: Start: 12-25-2024 End: 12-25-2024 ambulatory No Primary Care Physician -[facility] Start: 12-25-2024 End: 12-25-2024 ambulatory Raven Modi Facility:[facility] Start: 12-20-2024 End: 12-20-2024 Patient encounter procedure Dariana Sreedhar CROWLEY -[facility] Work Phone: Start: 12-20-2024 End: 12-20-2024 ambulatory No Primary Care Physician [facility] Work Phone: Start: 11-21-2024 End: 11-21-2024 ambulatory No Primary Care Physician [facility] Work Phone: Start: 11-21-2024 End: 11-21-[address] Renate Handley MD -Laboratory Specimen Work Phone: Start: 11-21-2024 End: 11-21-[address] Renate Handley MD -[facility] Work Phone: Start: 11-21-2024 End: 11-21-2024 ambulatory No Primary Care Physician [facility] Work Phone: Start: 11-21-2024 End: 11-21-2024 ambulatory No Primary Care Physician Facility:[facility] Start: 11-12-2024 End: 11-12-2024 ambulatory No Primary Care Physician [facility] Work Phone: Start: 11-12-2024 End: 11-12-2024 Patient encounter procedure [place] SANCHEZ [facility] Work Phone: Start: 11-12-2024 End: 11-12-2024 ambulatory No Primary Care Physician Facility:[facility] Start: 10-25-2024 End: 10-25-2024 Emergency department patient visit Dr. Heraclio Ornelas DO -Emergency Department Work Phone: Start: 10-21-2024 End: 10-21-2024 Patient encounter procedure [place] SANCHEZ -[facility] Work Phone: Start: 10-21-2024 End: 10-21-2024 ambulatory No Primary Care Physician [facility] Start: 10-02-2024 End: 10-02-2024 ambulatory No Primary Care Physician [facility] Work Phone: Start: 10-02-2024 End: 10-02-[address] [facility] Start: 10-02-2024 End: 10-02-2024 ambulatory No Primary Care Physician Facility:[facility] Start: 09-26-2024 End: 09-26-[address] Raven Modi DO -[facility] Work Phone: Start: 09-26-2024 End: 09-26-2024 ambulatory No Primary Care Physician [place] Start: 09-04-2024 End: 09-04-[address] Raven Modi DO -[facility] Work Phone: Start: 09-04-2024 End: 09-04-2024 ambulatory Raven Modi Facility:[facility] Start: 08-30-2024 End: 08-30-2024 Emergency department patient visit No Primary Care Physician -Emergency Department Work Phone: Start: 08-29-2024 End: 08-29-2024 Patient encounter procedure Shell Curry CNM -[facility] Work Phone: Start: 08-29-2024 End: 08-29-2024 ambulatory No Primary Care Physician [facility] Work Phone: Start: 08-29-2024 End: 08-29-2024 ambulatory No Primary Care Physician Facility:[facility] Start: 08-09-2024 Non-patient / Non-visit Adri Kimlbe RN -[facility] Work Phone: Start: 08-09-2024 ambulatory Adri Kimble Facility :[facility] Start: 06-16-2024 End: 06-16-2024 Emergency department patient visit Dr. Franco Ortiz DO -Emergency Department Work Phone: Start: 02-29-2024 End: 02-29-2024 ambulatory No Primary Care Physician [place] Start: 08-15-2023 End: 08-15-2023 Emergency department patient visit [facility] Work Phone: Start: 04-14-2022 End: 04-14-2022 Emergency department patient visit No Primary Care Physician [facility] Start: 12-21-2021 End: 12-21-2021 Patient encounter procedure No Primary Care Physician [facility] Start: 11-08-2021 Non-patient / Non-visit DO [facility] Start: 11-07-2021 Non-patient / Non-visit DO [facility] Start: 11-06-2021 Non-patient / Non-visit DO [facility] Start: 11-05-2021 Non-patient / Non-visit DO [facility] Start: 11-04-2021 Non-patient / Non-visit DO [facility] Start: 11-04-2021 End: 11-08-2021 Evaluation and management of inpatient DO [facility] Start: 10-26-2021 End: 10-26-2021 Patient encounter procedure DO [facility] Start: 10-18-2021 End: 10-18-2021 Patient encounter procedure DO [facility] Start: 10-17-2021 Non-patient / Non-visit DO [facility] Start: 10-17-2021 End: 10-17-2021 [facility] Start: 10-12-2021 End: 10-12-2021 Patient encounter procedure DO [facility] Start: 10-06-2021 End: 10-06-2021 Patient encounter procedure DO [facility] Start: 10-06-2021 End: 10-06-2021 Patient encounter procedure DO [facility]-Laboratory, Specimen Start: 09-27-2021 End: 09-27-2021 Patient encounter procedure DO [facility]-Ultrasound, [facility] Start: 09-21-2021 End: 09-21-2021 Patient encounter procedure DO [facility] Start: 09-06-2021 End: 09-06-2021 Patient encounter procedure DO [facility] Start: 08-23-2021 End: 08-23-2021 Patient encounter procedure DO [facility] Start: 08-10-2021 End: 08-10-2021 Patient encounter procedure DO [facility]Laboratory, [facility] Start: 07-14-2021 End: 07-14-2021 Patient encounter procedure DO [facility] Procedures Date Procedure Procedure Detail Performing Clinician Start: 12-25-2024 Gram stain microscopy N o Primary Care Physician Start: 12-25-2024 Source specific culture No Primary Care Physician Start: 12-25-2024 Urine culture No Primar y Care Physician Start: 12-25-2024 Transvaginal obstetr ic ultrasonography No Primary Care Physician Start: 12-25-2024 Complete ultrasound of kidneys and bladder No Primary Care Physician Start: 11-21-2024 Urine culture No Primar y Care Physician Start: 11-12-2024 Ultrasonography in f irst trimester No Primary Care Physician Start: 10-25-2024 Urnls dip stick/tabl et reagent auto microscopy No Primary Care Physician Start: 10-25-2024 Urine culture No Primar y Care Physician Start: 10-02-2024 Procedure No Primary Care Physician Start: 08-30-2024 Urine culture No Primar y Care Physician Start: 08-30-2024 Urnls dip stick/tabl et reagent auto microscopy No Primary Care Physician Start: 08-30-2024 Transvaginal obstetr ic ultrasonography No Primary Care Physician Start: 08-29-2024 Urine culture No Primar y Care Physician Start: 08-29-2024 Hepatitis C antibody measurement No Primary Care Physician Comment on above: Reactive: Presumptiv e evidence of antibodies to HCV. Follow CDC recommendations for supplemental testing.Non-Reactive: Antibodies to HCV were not detected; does not exclude the possibility of exposure to HCVReactive Results are presumptive evidence of antibodies to HCV. Follow CDC recommendations for supplemental testing.Order confirmation testing: HCV Quant by PCR testing - HCVPCR #[id number] Non Reactive: < 0.8 Equivocal: >/= 0.8 to < 1.0 Reactive: >/= 1.0The CDC requires that a reactive/equivocal HCV antibody result be sent out for confirmation. HCV Quant by PCR testing. Start: 08-29-2024 Rubella IgG measurement No Primary Care Physician Comment on above: Antibody Result: Int erpretationNon-Reactive: Non- ImmuneReactive: ImmuneThe following results were obtained with the [employer] Rubella IgG assay. Results from assays of other manufacturers cannot be used interchangeably. Start: 08-29-2024 Serologic test for syphilis No Primary Care Physician Start: 08-29-2024 Liquid based cervica l cytology screening No Primary Care Physician Comment on above: NEGATIVE FOR INTRAEP ITHELIAL LESION OR MALIGNANCY.THIS SPECIMEN WAS RESCREENED PART OF OUR [employer]GRAM. This liquid based Th inPrep(R) pap test was screened withthe use of an image guided system. The HPV DNA reflex c riteria were not met with this specimenresult therefore, no HPV testing was performed.Performed at: - [address] [id number] Director: Sheryl Melendez MD, Phone: [phone] Start: 11-04-2021 End: 11-04-2021 Viral antigen assay DO [facility] Start: 10-17-2021 Urine culture DO [facility] Start: 10-06-2021 Group B Streptococcu s Culture DO [facility] Start: 09-27-2021 Ultrasound scan for growth DO [facility] Start: 04-09-2021 Antibody screen Comment on above: Order Comment: Speci men Type: BLOOD SPECIMEN Performed By: #### T SCR #### [facility] CLIA [id number] [address] [place] [address] [place] H/O: section History of delivery, currently No Primary Care Physician Comment on above: x1, Desires rpt csec x1, Desires rpt csec with SM H/O: section History of delivery, currently Shell Curry CNM H/O: 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 Raven Modi DO H/O: 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 Raven Modi DO H/O: section History of delivery, currently Geneva Wheeler [employer] H/O: 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 Renate Handley MD H/O: section History of delivery, currently Dariana Eli CNM H/O: 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 Raven Modi DO H/O: 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 Renate Handley MD Plan of Treatment Date Care Activity Detail Author Start: 01-06-2025 CBC W Auto Different ial panel - Blood [facility] Start: 01-06-2025 Measurement of gluco se 2 hours after glucose challenge for glucose tolerance test [facility] Start: 01-06-2025 Serologic test for syphilis [facility] Start: 01-06-2025 [facility] Start: 12-25-2024 Bacteria identified in Urine by Culture Urine Culture [facility] Start: 12-25-2024 Cul bact xcpt urine blood/stool aerobic isol CULTURE OTHR SPECIMN AEROBIC [facility] Start: 12-25-2024 Culture bacterial quanttative colony count urine URINE CULTURE/COLONY COUNT [facility] Start: 12-25-2024 Genital Culture Genital Culture [facility] Start: 12-25-2024 Microscopic observat ion [Identifier] in Unspecified specimen by Gram stain [facility] Start: 12-25-2024 Smr prim src gram/gi emsa stain bct fungi/cell SMEAR GRAM STAIN [facility] Start: 12-25-2024 Source specific culture [facility] Start: 12-25-2024 [facility] Start: 12-25-2024 Nonstress test [facility] Start: 12-25-2024 Obstetric monitoring [facility] Start: 12-25-2024 [facility] Start: 12-25-2024 Vital signs measurements [facility] Start: 12-25-2024 Patient discharge [facility] Start: 10-25-2024 [facility] Start: 08-30-2024 Bacteria identified in Urine by Culture Urine Culture [facility] Start: 08-30-2024 [facility] Start: 08-30-2024 [facility] Start: 08-29-2024 Bacteria identified in Urine by Culture Urine Culture [facility] Start: 08-29-2024 Chlamydia deoxyribon ucleic acid detection [facility] Start: 08-29-2024 Liquid based cervica l cytology screening [facility] Start: 08-29-2024 [facility] Start: 06-16-2024 [facility] Start: 08-15-2023 [facility] Start: 10-17-2021 Bacteria identified in Urine by Culture Urine Culture [facility] Work Phone: CBC W Auto Different ial panel - Blood [facility] Erythrocyte mean cor puscular volume determination [facility] Genital microscopy, culture and sensitivities [facility] Hematocrit [Volume F raction] of Blood [facility] Hemoglobin [Mass/vol ume] in Blood [facility] Leukocytes [#/volume ] in Blood [facility] Mean corpuscular hem oglobin concentration determination [facility] Mean corpuscular hem oglobin determination [facility] Measurement of gluco se 2 hours after glucose challenge for glucose tolerance test [facility] Neisseria gonorrhoea e rRNA [Presence] in Unspecified specimen by DEVENDRA with probe detection [facility] Neutrophil count [facility] Neutrophil percent differential count [facility] Path report.final Dx Spec [facility] Patient Education [facility] Work Phone: Patient referral [facility] Work Phone: PCR test for Chlamyd ia trachomatis [facility] Platelets [#/volume] in Blood [facility] Red blood cell count [facility] Red cell distributio n width determination [facility] Serologic test for syphilis [facility] Urine culture [facility] Urine culture [facility] Urine culture [facility] Immunizations Immunization Date Immunization Notes Care Provider Fa cility 06-16-2024 tetanus toxoid, redu cotavio diphtheria toxoid, and acellular pertussis vaccine, adsorbed No Primary Care Physician [facility] 08-23-2021 tetanus toxoid, redu octavio diphtheria toxoid, and acellular pertussis vaccine, adsorbed DO [facility] 08-23-2021 diphtheria, tetanus toxoids and acellular pertussis vaccine, unspecified formulation DO [facility] Work Phone: Payers Date Payer Category Payer Unknown [id number] 90 [id number] 2024 Unknown [id number] 2024 Self-pay [id number] Unknown [id number] Unknown [id number] Unknown [id number] 2.16.8 [id number] Unknown [id number] 2.16.8 40.1.528219.3.579.2.462 Unknown [id number] 2.16.8 40.1.431725.3.579.2.462 Unknown [id number] 2.16.8 40.1.166852.3.579.2.462 Unknown [id number] 2.16.8 40.1.049370.3.579.2.462 Unknown [id number] 2.16.8 40.1.216225.3.579.2.462 Unknown [id number] 2.16.8 40.1.917006.3.579.2.462 Unknown [id number] 2.16.8 40.1.689594.3.579.2.462 Unknown [id number] 2.16.8 40.1.796746.3.579.2.462 Unknown [id number] 2.16.8 40.1.693318.3.579.2.462 Unknown [id number] 2.16.8 40.1.810687.3.579.2.462 Unknown [id number] 2.16.8 40.1.321020.3.579.2.462 Unknown [id number] 2.16.8 40.1.207752.3.579.2.462 Unknown [id number] 2.16.8 40.1.895397.3.579.2.462 Unknown [id number] 2.16.8 40.1.866359.3.579.2.462 Unknown [id number] 2.16.8 40.1.611025.3.579.2.462 Unknown [id number] 2.16.8 40.1.523412.3.579.2.462 Unknown [id number] 2.16.8 40.1.131577.3.579.2.462 Unknown [id number] 2.16.8 40.1.247340.3.579.2.462 Social History Date Type Detail Facility Start: 10-12-2021 End: 08-15-2023 Tobacco smoking status NEIS Unknown if ever smoked [facility] Start: 2000 Sex Assigned At Female W [facility] Start: 08-30-2024 End: 10-25-2024 Tobacco smoking status NHIS Ex-smoker (finding) [facility] Start: 08-30-2024 End: 10-07-2024 Sex Female (finding) [facility] Mental Status Date Assessment Result Facility 11-07-2021 Cognitive function Level Of Cons ciousness Appropriate [facility] Work Phone: 11-06-2021 Cognitive function Arousable To Voice/Nam e [facility] Work Phone: Clinical Notes 08-29-2024 to 01-06-2025 Note Date & Type Note Facility 01-06-2025 Progress note [facility] 01-06-2025 Progress note Note Date/Time January 06, 2025 3:29pm [facility] [address] [place] [address], [address] [place] [address] OFFICE VISIT Date of Service: 01/06/25 MR#: [id number] Acct: [id number] Name: QUAN RODGERS Rep #: [id number] : 2000 Provider: Dr. Dameon Handley MD Age/Sex: 24/F Location: [facility] Status: Signed Intake Vital Signs 10/21/24 08:39 11/21/24 10:42 12/25/24 09:54 01/06/25 14:59 Height 5 ft 11 in 5 ft 11 in 5 ft 10 in 5 ft 10 in Weight: 260 lb 8 oz BMI 37.3 BP 108/73 Intake Visit Reasons: 28wk ob/glucose Classification Analyst Required: No Is patient in pain?: No Allergies No Known Allergies Allergy (Verified 01/06/25 15:00) Last Menstrual Period: 06/24/24 Zika: Zika virus screening: Negative : No PFSH PFSH Medical History Chorioamnionitis delivery delivered Surgical History History of section History of surgery Social History adopted: No household members: children and other details: mom housing: house number of children: 1 current occupational status: employed 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[employer] current occupational exposures/hazards: No pets and animals: No history of recent travel: No sexually active: Yes Smoking Status: Former smoker second hand exposure: No alcohol intake: never substance use type: does not use well-balanced diet: daily or most days caffeine: Yes Type: carbonated beverages eating out: rarely or never during the past year weight has: remained stable what type of physical activity do you participate in: walking frequency: 1-2 times per week duration: < 15 minutes/day aly/buddhist: None seatbelt use: always do you feel safe at home: Yes additional social history: : Max History 2 Elective abortions Hx Para 1 Spontaneous abortions Hx # Term Pregnancies 1 Ectopic pregnancies Hx # Pregnancies Multiple births # of living children 1 Past Pregnancies Del. Date Name GA/Weeks Outcome Route Bth Weight Gen Labor Lgth Anesthesia Del Locatn Provider FOB 11/06/21 Babak 39 live - full term 8lbs 14oz Male epidural WC Renate Handley Max Delivery Date: 11/06/21 Last Updated by: Adri Kimble, RN LTCS SM AOD 6 cm boy Babak IOL 41 HPI 28wk ob/glucose Details: QUAN RODGERS is a 24 year old who presents for routine OB visit. OB Visit LINDA Calculator Estimated Delivery Date Method Current WG Current Estimate 03/31/25 LMP (Certain) 28w 0d Other Estimates 03/30/25 Ultrasound #1 28w 1d Expected Delivery Route/Plan Repeat C/S with Specific Issue/Plans Covid status: [] Flu vaccine: [] Tdap vaccine: [] Rhogam: [] LARC form signed: [] Problem list reviewed and updated with the most current plan of care details and appropriate orders placed. Relevant counseling for the gestational age provided. Continue routine care and follow up unless otherwise noted in visit notes/problem list details Initial Weight: 259 lb Date -?-?-?-?-?-?-?-?-?-?-?-?- EGA Weight BP Urine Prot -?-?-?-?-?-?-?-?-?-?-?-?- Glucose FHR FuHt Pres Dilation -?-?-?-?-?-?-?-?-?-?-?-?- Effaced St Visit Note 08/29/24 -?-?-?-?-?-?-?-?-?-?-?-?- 9w 3d 259 lb 6 oz (+6 oz) 121/78 -?-?-?-?-?-?-?-?-?-?-?-?- 168 -?-?-?-?-?-?-?-?-?-?-?-?- KW- CRL cons wit h dates. Declines NIPT. requesting 39 week RC/S 09/04/24 -?-?-?-?-?-?-?-?-?-?-?-?- 10w 2d 255 lb 4 oz (-3 lb 12 oz) 113/73 Negative -?-?-?-?-?-?-?-?-?-?-?-?- Negative 158 -?-?-?-?-?-?-?-?-?-?-?-?- JV- follow up ER visit today. She possibly passed a kidney stone and feeling better until she had to lift someone heavy at work. FHT seen today on bedside scan. wants NIPT now. plans to return to do this. work restriction letter given. if pain returns will order a KUB 09/26/24 -?-?-?-?-?-?-?-?-?-?-?-?- 13w 3d 258 lb (-16 oz) 123/73 Negative -?-?-?-?-?-?-?-?-?-?-?-?- Negative 155 -?-?-?-?-?-?-?-?-?-?-?-?- JV- no complaint s. is going to medicaid office today and will let us know if approved. if approved will order mfm ultrasound and NIPT with new ob labs. 10/21/24 -?-?-?-?-?-?-?-?-?-?-?-?- 17w 0d 258 lb 2 oz (-14 oz) 115/71 -?-?-?-?-?-?-?-?-?-?-?-?- 148 -?-?-?-?-?-?-?-?-?-?-?-?- MH-No VB. ?flutt ers. Reviewed nl PN labs. Girl Unable to void this appt. Nausea persists, zofran helpful 11/21/24 -?-?-?-?-?-?-?-?-?-?-?-?- 21w 3d 259 lb (+0 oz) 113/68 Negative -?-?-?-?-?-?-?-?-?-?-?-?- Negative 150 20 -?-?-?-?-?-?-?-?-?-?-?-?- SM- SM- no vb cramping some inte rmittent left side pain suspect round ligament, UA and Culture 12/20/24 -?-?-?-?-?-?-?-?-?-?-?-?- 25w 4d 262 lb (+3 lb) 114/78 -?-?-?-?-?-?-?-?-?-?-?-?- 157 25 -?-?-?-?-?-?-?-?-?-?-?-?- LC- no vb/crampi ng. good fm. no concerns today. 28 week labs ordered. 12/25/24 -?-?-?-?-?-?-?-?-?-?-?-?- 26w 2d 259 lb 4 oz (+4 oz) 117/77 1+ -?-?-?-?-?-?-?-?-?-?-?-?- Negative 146 0 -?-?-?-?-?-?-?-?-?-?-?-?- JV- patient is geovanni latham seen urgently today for pelvic pain. She woke up with pain that was moderate to severe JV- patient is being seen ur gently today for pelvic pain. She woke up with pain that was moderate to severe. Her anatomy scan showed a cl of 4.4 cm. placenta posterior and not low lying. UA showed + 1 protein, no blood or ketones. Sending to to L&D for tocometer and possible CT or KUB to rule out kidney stone. 01/06/25 -?-?-?-?-?-?-?-?-?-?-?-?- 28w 0d 260 lb 8 oz (+1 lb 8 oz) 108/73 -?-?-?-?-?-?-?-?-?-?-?-?- 145 28 -?-?-?-?-?-?-?-?-?-?-?-?- SM- no vb lof go od fm no reuglar ctx desires steriliation ACOG First Trimester First Trimester: Desire for , Alcohol, Tobacco Cessation, Illicit/Recreational Drug/Substance Use, Intimate Partner Violence, Barriers to care, Unstable Housing, Communication Barriers, Environmental/Work Hazards, Anticipated Course of Care, Toxoplasmosis Precations, Use of Any medications, Sexual activity, Exercise, Dental Care, Sauna/Hot tub use, Seat Belt use, Childbirth classes/Hospital facilities, Travel, Indications for Ultrasound and Screening for Aneuploidy; Discussed Second Trimester Second Trimester: Signs and Symptoms of Labor, Selecting a care provider, Reproductive Life Planning & Contreception, Care Planning, Depression/Anxiety and Intimate Partner Violence; Discussed Tobacco Cessation Third Trimester Third Trimester: Pain Management Plans, Labor support person(s), Immediate Larc, Circumcision preference, Movement Monitoring, Signs and Symptoms of Preeclampsia, Labor Signs, Feeding No and Family Medical Leave or Disability Forms ROS Const Denies fever(s) GI Reports as per HPI and Denies abdominal pain Reports as per HPI, Denies abnormal vaginal bleeding, Denies dysuria and Denies vaginal discharge Exam Const General: healthy appearing, comfortable and no acute distress GI Inspection: normal to inspection Palpation: soft and nontender Coding Level of Care Code Off vis,est,level 3 Diagnoses Pelvic pain affecting O26.899; R10.2 Family history of autism Z81.8 History of delivery, currently O34.219 Obesity affecting in second trimester, unspecified obesity type O99.212 Obesity type affecting : unspecified obesity Trimester: second trimester Supervision of high risk in second trimester O09.92 Trimester: second trimester 28 weeks gestation of Z3A.28 Weeks of gestation: 28 weeks Sterilization Z30.2 Assessment and Plan Assessment and Plan (1) Pelvic pain affecting : Status: Acute (2) Family history of autism: Status: Acute Comment: FOB sister (3) History of delivery, currently : Status: Acute Comment: x1, Desires rpt csec with SM (4) Obesity affecting : Status: Acute Qualifiers: Obesity type affecting : unspecified obesity Trimester: second trimester Qualified Code(s): O99.212 - Obesity complicating , second trimester Comment: BMI: 35.6; HgBA1C ordered w/NOB (5) Supervision of high-risk : Status: Acute Qualifiers: Trimester: second trimester Qualified Code(s): O09.92 - Supervision of high risk , unspecified, second trimester Comment: PRR, , LINDA 03/31/25 Girl, Rao PC: Babak, : Adolph (6) : Status: Acute Qualifiers: Weeks of gestation: 28 weeks Qualified Code(s): Z3A.28 - 28 weeks gestation of Comment: Discussed genetic/carrier testing - prior carrier done. Panorama low risk-female. unremarkable anatomy, consistent dates (7) Sterilization: Status: Acute Comment: title 19 signed 01/06 Orders: Orders POC Urinalysis 2 Dip (Clinic) Today 01/06/25 1528 <Electronically signed by Renate joseph MD> Date _ Renate Handley MD Cosign Signature: Date (if applicable) CC: ~ [facility] Work Phone: 1(107) 519-787307-02-2025 Radiology Diagnostic study note [facility] Imaging Services [address] [place], [place] [address] Transvaginal w/Preg US MR#: [id number] Acct: [id number] Name: QUAN RODGERS KELTON Rep #: [id number] : 2000 F 24 From: Kevin Kidd MD PCP: Care Physician,No Primary Status: REG CLI Study:Transvaginal w/Preg US Date of Exam: 12/25/24 Exam# [id number] Ordering Dr: Raven Sandoval DO PROCEDURE: TRANSVAGINAL W/PREG US 12/25/2024 REASON FOR EXAM: labor TECHNIQUE: TRANSVAGINAL W/PREG US COMPARISON: 11/12/2024 FINDINGS Single live intrauterine with heart rate noted at 131 beats per minute. Presentation is cephalic. Placenta is anterior not low lying. Cervical length measures 4.7 cm, cervix closed Left ovary not identified, no free fluid in the cul de sac age measures 26 weeks, 2 days for an LINDA of 03/31/2025. US/Transvaginal w/Preg US IMPRESSION: Single live intrauterine at 26 weeks 2 days with LINDA of 03/31/2025. Heart rate of 131 beats per minute. Left ovary not evaluated Reading Location: [id number] CC: Dr. Raven Modi DO; No Primary Care Physician ~ Monotype Keyboard Operator: Signed [facility]07-02-2025 Radiology Diagnostic study note [facility] Imaging Services [address] [place] [id number] Kidney and Bladder MR#: [id number] Acct: [id number] Name: QUAN RODGERS KELTON Rep #: [id number] : 2000 F 24 From: Kevin Kidd MD PCP: Care Physician,No Primary Status: REG CLI Study:Kidney and Bladder Date of Exam: 0 12/25/24 Exam# [id number] Ordering Dr: Raven Sandoval DO PROCEDURE: KIDNEY AND BLADDER 12/25/2024 REASON FOR EXAM: PELVIC PAIN TECHNIQUE: KIDNEY AND BLADDER COMPARISON: None FINDINGS: Right kidney measures 11.7 x 6.9 x 6.1 cm. No hydronephrosis, calculi or mass. Renal cortex measures 2.3 cm Incidental note is made of a prominent renal pelvis Left kidney measures 11.6 x 5.3 x 6.4 cm. No hydronephrosis calculi or mass. 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 Reading Location: [id number] CC: Dr. Raven Modi, DO; No Primary Care Physician ~ Monotype Keyboard Operator: Signed [facility]06-27-2025 [facility] [address], [address] [place] [address] OFFICE VISIT Date of Service: 12/20/24 MR#: [id number] Acct: [id number] Name: QUAN RODGERS KELTON Rep #: [id number] : 2000 Provider: KEO Eli Age/Sex: 24/F [place] [facility] Status: Signed Intake Vital Signs 09/26/24 13:48 11/21/24 10:42 12/20/24 08:29 Height 5 ft 11 in 5 ft 11 in 5 ft 11 in Weight: 262 lb BMI 36.5 BP 114/78 Intake Visit Reasons: 25wk ob Chief Complaint: 25wk OB Classification Analyst Required: No Is patient in pain?: No Allergies No Known Allergies Allergy (Verified 12/20/24 08:28) Medications ?Medication ?Instructions ?Recorded ?Confirmed ?Type metoclopramide HCl 10 mg tablet 10 mg PO Q6H PRN nause a and 10/28/24 12/20/24 Rx (Reglan) vomiting #30 tabs Last Menstrual Period: 06/24/24 : No PFSH PFSH Medical History Chorioamnionitis delivery delivered Surgical History History of section History of surgery Social History adopted: No household members: children and other details: mom housing: house number of children: 1 current occupational status: employed 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[employer] current occupational exposures/hazards: No pets and animals: No history of recent travel: No sexually active: Yes Smoking Status: Former smoker second hand exposure: No alcohol intake: never substance use type: does not use well-balanced diet: daily or most days caffeine: Yes Type: carbonated beverages eating out: rarely or never during the past year weight has: remained stable what type of physical activity do you participate in: walking frequency: 1-2 times per week duration: < 15 minutes/day aly/buddhist: None seatbelt use: always do you feel safe at home: Yes additional social history: : Adolph History 2 Elective abortions Hx Para 1 Spontaneous abortions Hx # Term Pregnancies 1 Ectopic pregnancies Hx # Pregnancies Multiple births # of living children 1 Past Pregnancies Del. Date Name GA/Weeks Outcome Route Bth Weight Infant Gen Labor Lgth Anesthesia Del Locatn Provider FOB 11/06/21 Babak 39 live - full term 8lbs 14oz Male epidural [facility] Renate Handley Max Delivery Date: 11/06/21 Last Updated by: Adri Kimble RN LTCS SM AOD 6 cm boy Babak IOL 41 HPI 25wk ob Details: QUAN RODGERS is a 24 year old who presents for routine OB visit. OB Visit LINDA Calculator Estimated Delivery Date Method Current WG Current Estimate 03/31/25 LMP (Certain) 25w 4d Other Estimates 03/30/25 Ultrasound #1 25w 5d Expected Delivery Route/Plan Repeat C/S with SM Specific Issue/Plans Covid status: [] Flu vaccine: [] Tdap vaccine: [] Rhogam: [] LARC form signed: [] Problem list reviewed and updated with the most current plan of care details and appropriate ordersplaced. Relevant counseling for the gestational age provided. Continue routine care and follow up unless otherwise noted in visit notes/problem list details Initial Weight: 259 lb Date -?-?-?-?-?-?-?-?-?-?-?-?- EGA Weight BP Urine Prot -?-?-?-?-?-?-?-?-?-?-?-?- Glucose FHR FuHt Pres Dilation -?-?-?-?-?-?-?-?-?-?-?-?- Effaced St Visit Note 08/29/24 -?-?-?-?-?-?-?-?-?-?-?-?- 9w 3d 259 lb 6 oz (+6 oz) 121/78 -?-?-?-?-?-?-?-?-?-?-?-?- 168 -?-?-?-?-?-?-?-?-?-?-?-?- KW- CRL cons wit h dates. Declines NIPT. requesting 39 week RC/S 09/04/24 -?-?-?-?-?-?-?-?-?-?-?-?- 10w 2d 255 lb 4 oz (-3 lb 12 oz) 113/73 Negative -?-?-?-?-?-?-?-?-?-?-?-?- Negative 158 -?-?-?-?-?-?-?-?-?-?-?-?- JV- follow up ER visit today. She possibly passed a kidney stone and feeling better until she had to lift someone heavy at work. FHT seen today on bedside scan. wants NIPT now.plans to return to do this. work restriction letter given. if pain returns will order a KUB 09/26/24 -?-?-?-?-?-?-?-?-?-?-?-?- 13w 3d 258 lb (-16 oz) 123/73 Negative -?-?-?-?-?-?-?-?-?-?-?-?- Negative 155 -?-?-?-?-?-?-?-?-?-?-?-?- JV- no complaint s. is going to medicaid office today and will let us know if approved. if approved will order mfm ultrasound and NIPT with new ob labs. 10/21/24 -?-?-?-?-?-?-?-?-?-?-?-?- 17w 0d 258 lb 2 oz (-14 oz) 115/71 -?-?-?-?-?-?-?-?-?-?-?-?- 148 -?-?-?-?-?-?-?-?-?-?-?-?- MH-No VB. ?flutt ers. Reviewed nl PN labs. Girl Unable to void this appt. N abisai jefferson, refugio helpful 11/21/24 -?-?-?-?-?-?-?-?-?-?-?-?- 21w 3d 259 lb (+0 oz) 113/68 Negative -?-?-?-?-?-?-?-?-?-?-?-?- Negative 150 20 -?-?-?-?-?-?-?-?-?-?-?-?- SM- SM- no vb cramping some inte rmittent left side pain suspect round ligament, UA and Culture 12/20/24 -?-?-?--?-?-?-?-?-?-?-?-?- 25w 4d 262 lb (+3 lb) 114/78 -?-?-?-?-?-?-?-?-?-?-?-?- 157 25 -?-?-?-?-?-?-?-?-?-?-?-?- LC- no vb/crampi ng. good fm. no concerns today. 28 week labs ordered. ACOG First Trimester First Trimester: Desire for , Alcohol, Tobacco Cessation, Illicit/Recreational Drug/Substance Use, Intimate Partner Violence, Barriers to care, Unstable Housing, Communication Barriers, Environmental/Work Hazards, Anticipated Course of Care, Toxoplasmosis Precations, Use of Any med ications, Sexual activity, Exercise, Dental Care, Sauna/Hot tub use, Seat Belt use, Childbirth classes/Hospital facilities, Travel, Indications for Ultrasound and Screening for Aneuploidy; Discussed Second Trimester Second Trimester: Signs and Symptoms of Labor, Selecting a care provider, Reproductive Life Planning & Contreception, Care Planning, Depression/Anxiety and Intimate Partner Violence; Discussed Tobacco Cessation Third Trimester Third Trimester: Pain Management Plans, Labor support person(s), Immediate Larc, Circumcision preference, Movement Monitoring, Signs and Symptoms of Preeclampsia, Labor Signs, InfantFeeding No and Family Medical Leave or Disability Forms ROS Const Reports system reviewed and no additional complaints, except as documented GI Denies nausea and Denies vomiting Denies urinary hesitancy and Denies urinary urgency Exam Const Orientation: alert, awake and oriented x3 Resp Effort & Inspection: normal respiratory effort, able to speak in complete sentences and symmetric chest movement GI Palpation: soft (gravid) OB/External & Speculum: other (fundus appriopriate for GA) Coding Level of Care Code OB Routine Diagnoses Family history of autism Z81.8 Obesity affecting in second trimester, unspecified obesity type O99.212 Obesity type affecting : unspecified obesity Trimester: second trimester History of delivery, currently O34.219 Supervision of high risk in second trimester O09.92 Trimester: second trimester 25 weeks gestation of Z3A.25 Weeks of gestation: 25 weeks Assessment and Plan Assessment and Plan (1) Family history of autism: Status: Acute Comment: FOB sister (2) Obesity affecting : Status: Acute Qualifiers: Obesity type affecting : unspecified obesity Trimester: second trimester Qualified Code(s): O99.212 - Obesity complicating , second trimester Comment: BMI: 35.6; HgBA1C ordered w/NOB (3) History of delivery, currently : Status: Acute Comment: x1, Desires rpt csec with SM (4) Supervision of high-risk : Status: Acute Qualifiers: Trimester: second trimester Qualified Code(s): O09.92 - Supervision of high risk , unspecified, second trimester Comment: PRR, , LINDA 03/31/25 Girl, Rao PC: Babak, : Adolph (5) : Status: Acute Qualifiers: Weeks of gestation: 25 weeks Qualified Code(s): Z3A.25 - 25 weeks gestation of Comment: Discussed genetic/carrier testing - prior carrier done. Panorama low risk- female. unremarkable anatomy, consistent dates Orders: Orders CBC W/Diff, Automated Today O09.92 - Supervision of high risk , unspecified, second trimester, Z3A.25 - 25 weeks gestation of Glucose Challenge Gest 1H 50g Today Z13.1 - Encounter for screening for diabetes mellitus Syphilis Antibodies Today O09.92 - Supervision of high risk , unspecified, second trimester, Z3A.25 - 25 weeks gestation of HIV Today Plan Details Additional Comments: ACOG trimester education reviewed and updated. see problem list details for updated plan management information and see below for orders placed atthis visit. GA appropriate handout given. 12/20/24 0851 meme CNM> Date _ Dariana Eli CNM Cosigner Signature: Date (if applicable) CC: ~ [facility] [id number] [facility] [address], [address] [place] [address] OFFICE VISIT Date of Service: 11/21/24 MR#: [id number] Acct: [id number] Name: QUAN RODGERS KELTON Rep #: [id number] : 2000 Provider: Dr. Dameon Handley MD Age/Sex: 24/F Location: [facility] Status: Signed Intake Vital Signs 09/26/24 13:48 10/25/24 18:55 11/21/24 10:42 Height 5 ft 11 in 5 ft 11 in 5 ft 11 in Weight: 259 lb BMI 36.1 BP 113/68 Intake Visit Reasons: 21wk ob Classification Analyst Required: No Is patient in pain?: No Allergies No Known Allergies Allergy (Verified 11/21/24 10:45) Medications ?Medication ?Instructions ?Recorded ?Confirmed ?Type metoclopramide HCl 10 mg tablet 10 mg PO Q6H PRN nause a and 10/28/24 11/21/24 Rx (Reglan) vomiting #30 tabs Last Menstrual Period: 06/24/24 Zika: Zika virus screening: Negative : No PFSH PFSH Medical History Chorioamnionitis delivery delivered Surgical History History of section History of surgery Social History adopted: No household members: children and other details: mom housing: house number of children: 1 current occupational status: employed 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[employer] current occupational exposures/hazards: No pets and animals: No history of recent travel: No sexually active: Yes Smoking Status: Former smoker second hand exposure: No alcohol intake: never substance use type: does not use well-balanced diet: daily or most days caffeine: Yes Type: carbonated beverages eating out: rarely or never during the past year weight has: remained stable what type of physical activity do you participate in: walking frequency: 1-2 times per week duration: < 15 minutes/day aly/buddhist: None seatbelt use: always do you feel safe at home: Yes additional social history: : Adolph History 2 Elective abortions Hx Para 1 Spontaneous abortions Hx # Term Pregnancies 1 Ectopic pregnancies Hx # Pregnancies Multiple births # of living children 1 Past Pregnancies Del. Date Name GA/Weeks Outcome Route Bth Weight Gen Labor Lgth Anesthesia Del Locatn Provider FOB 11/06/21 Babak 39 live - full term 8lbs 14oz Male epidural [facility] Renate Handley Max Delivery Date: 11/06/21 Last Updated by: Adri Kimble, RN LTCS SM AOD 6 cm boy Babak IOL 41 HPI 21wk ob Details: QUAN RODGERS is a 24 year old who presents for routine OB visit. OB Visit LINDA Calculator Estimated Delivery Date Method Current WG Current Estimate 03/31/25 LMP (Certain) 21w 3d Other Estimates 03/30/25 Ultrasound #1 21w 4d Expected Delivery Route/Plan Repeat C/S with SM Specific Issue/Plans Covid status: [] Flu vaccine: [] Tdap vaccine: [] Rhogam: [] LARC form signed: [] Problem list reviewed and updated with the most current plan of care details and appropriate ordersplaced. Relevant counseling for the gestational age provided. Continue routine care and follow up unless otherwise noted in visit notes/problem list details Initial Weight: 259 lb Date -?-?-?-?-?-?-?-?-?-?-?-?- EGA Weight BP Urine Prot -?-?-?-?-?-?-?-?-?-?-?-?- Glucose FHR FuHt Pres Dilation -?-?-?--?-?-?-?-?-?-?-?-?- Effaced St Visit Note 08/29/24 -?-?-?-?-?-?-?-?-?-?-?-?- 9w 3d 259 lb 6 oz (+6 oz) 121/78 -?-?-?-?-?-?-?-?-?-?-?-?- 168 -?-?-?-?-?-?-?-?-?-?-?-?- KW- CRL cons wit h dates. Declines NIPT. requesting 39 week RC/S 09/04/24 -?-?-?-?-?-?-?-?-?-?-?-?- 10w 2d 255 lb 4 oz (-3 lb 12 oz) 113/73 Negative -?-?-?-?-?-?-?-?-?-?-?-?- Negative 158 -?-?-?-?-?-?-?-?-?-?-?-?- JV- follow up ER visit today. She possibly passed a kidney stone and feeling better until she had to lift someone heavy at work. FHT seen today on bedside scan. wants NIPT now.plans to return to do this. work restriction letter given. if pain returns will order a KUB 09/26/24 -?-?-?-?-?-?-?-?-?-?-?-?- 13w 3d 258 lb (-16 oz) 123/73 Negative -?-?-?-?-?-?-?-?-?-?-?-?- Negative 155 -?-?-?-?-?-?-?-?-?-?-?-?- JV- no complaint s. is going to medicaid office today and will let us know if approved. if approved will order mfm ultrasound and NIPT with new ob labs. 10/21/24 -?-?-?-?-?-?-?-?-?-?-?-?- 17w 0d 258 lb 2 oz (-14 oz) 115/71 -?-?-?-?-?-?-?-?-?-?-?-?- 148 -?-?-?-?-?-?-?-?-?-?-?-?- MH-No VB. ?flutt ers. Reviewed nl PN labs. Girl Unable to void this appt. Nausea persists, charanjitfran helpful 11/21/24 -?-?-?-?-?-?-?-?-?-?-?-?- 21w 3d 259 lb (+0 oz) 113/68 -?-?-?-?-?-?-?-?-?-?-?-?- 150 20 -?-?-?-?-?-?-?-?-?-?-?-?- SM- SM- no vb cramping some inte rmittent left side pain suspect round ligament, UA and Culture ACOG First Trimester First Trimester: Desire for , Alcohol, Tobacco Cessation, Illicit/Recreational Drug/Substance Use, Intimate Partner Violence, Barriers to care, Unstable Housing, Communication Barriers, Environmental/Work Hazards, Anticipated Course of Care, Toxoplasmosis Precations, Use of Any med ications, Sexual activity, Exercise, Dental Care, Sauna/Hot tub use, Seat Belt use, Childbirth classes/Hospital facilities, Travel, Indications for Ultrasound and Screening for Aneuploidy; Discussed Second Trimester Second Trimester: Signs and Symptoms of Labor, Selecting a care provider, Reproductive Life Planning & Contreception, Care Planning, Depression/Anxiety and Intimate Partner Violence; Discussed Tobacco Cessation Third Trimester Third Trimester: Pain Management Plans, Labor support person(s), Immediate Larc, Circumcision preference, Signs and Symptoms of Preeclampsia, Labor Signs, Infant Feeding No and Family Medical Leave or Disability Forms ROS Const Denies fever(s) GI Reports as per HPI and Denies abdominal pain Reports as per HPI, Denies abnormal vaginal bleeding, Denies dysuria and Denies vaginal discharge Exam Const General: healthy appearing, comfortable and no acute distress GI Inspection: normal to inspection Palpation: soft and nontender Coding Level of Care Code Off vis,est,level 3 Diagnoses Family history of autism Z81.8 History of delivery, currently O34.219 Obesity affecting in second trimester, unspecified obesity type O99.212 Obesity type affecting : unspecified obesity Trimester: second trimester Supervision of high risk in second trimester O09.92 Trimester: second trimester 21 weeks gestation of Z3A.21 Weeks of gestation: 21 weeks Assessment and Plan Assessment and Plan (1) Family history of autism: Status: Acute Comment: FOB sister (2) History of delivery, currently : Status: Acute Comment: x1, Desires rpt csec with SM (3) Obesity affecting : Status: Acute Qualifiers: Obesity type affecting : unspecified obesity Trimester: second trimester Qualified Code(s): O99.212 - Obesity complicating , second trimester Comment: BMI: 35.6; HgBA1C ordered w/NOB (4) Supervision of high-risk : Status: Acute Qualifiers: Trimester: second trimester Qualified Code(s): O09.92 - Supervision of high risk , unspecified, second trimester Comment: PRR, , LINDA 03/31/25 Girl, Rao PC: Babak, : Adolph (5) : Status: Acute Qualifiers: Weeks of gestation: 21 weeks Qualified Code(s): Z3A.21 - 21 weeks gestation of Comment: Discussed genetic/carrier testing - prior carrier done. Panorama low risk- female. unremarkable anatomy, consistent dates Orders: Orders POC Urinalysis 2 Dip (Clinic) Today 11/21/24 1113 jake SANTOS> Date _ Renate Handley MD [facility] Signature: Date (if applicable) CC: ~ [facility]05-21-2025 Radiology Diagnostic study note [facility] Imaging Services [address] [place], [place] [id number] OB Anatomy w/ Transvaginal MR#: [id number] Acct: [id number] Name: VISHALQUAN KELTON Rep #: [id number] : 2000 F 24 From: Fercho Diallo MD PCP: Care Physician,No Primary Status: REG CLI Study:OB Anatomy w/ Transvaginal Date of Exam : 11/12/24 Exam# [id number] Ordering Dr: Geneva Wheeler ROAST MASTER ROAST MASTER-C PROCEDURE: OB ANATOMY W/ TRANSVAGINAL 11/12/2024 REASON FOR EXAM: ANATOMY SCAN TECHNIQUE: High resolution obstetric ultrasound performed using a 2D transducer. Standard views obtained, including biometry, anatomy survey, and Doppler studies. COMPARISON: Prior study dated August 30, 2024. FINDINGS LMP: June 24, 2024. Number: 1 Position: Vertex Placental Position: Anterior and not low-lying. Placental Abnormalities: None DIMENSIONS: Biparietal Diameter: 4.2 cm: 18 weeks and 4 days: 4 percentile/ Head Circumference: 16.5 cm: 19 weeks and 2 days: 9 percentile/ Abdominal Circumference: 14.6 cm: 19 weeks and 6 days: 37 percentile/ Femur Length: 3.3 cm: 20 weeks and 1 day: 43rd percentile/ ESTIMATED WEIGHT: 317 g plus/-48 g ESTIMATED WEIGHT PERCENTILE (24+ weeks): 30 ESTIMATED GESTATIONAL AGE: Baseline: 20 weeks and 1 day By Ultrasound: 19 weeks and 4 days ESTIMATED DATE OF DELIVERY: Baseline: March 31, 2025 By Ultrasound: April 04, 2025 BIOPHYSICAL ASSESSMENT: Amniotic Fluid Volume: 5.5 cm Amniotic Fluid Index: Within normal limits. (8-24 cm normal range) Cardiac Motion: 131 beats per minute (average) Trunk and Limb Motion: Present. MATERNAL ANATOMY: Adnexa: Both maternal ovaries are visualized and unremarkable. Cervical Length (if measured): 4.4 cm ANATOMY: Spine: Unremarkable Cranium: Unremarkable Cerebellum: Unremarkable Cisterna Magna: Unremarkable Cavum Septum Pellucidi: Unremarkable Lateral Ventricles: Unremarkable Choroid Plexus: Unremarkable Midline Falx: Unremarkable Nuchal Fold: Unremarkable Upper Lip: Unremarkable Heart: Unremarkable Ventricular Outflow Tracts: Unremarkable Stomach: Unremarkable Kidneys: Unremarkable Bladder: Unremarkable Umbilical Cord: Unremarkable unremarkable US/OB Anatomy w/ Transvaginal IMPRESSION: Single live intrauterine gestation with a mean gestational age of 19 weeks and 4days. [facility] CC: DANIEL Wheeler; No Primary Care Physician ~ Monotype Keyboard Operator: Signed [facility]04-03-2025 Evaluation note* Diagnosis Onset Date Resolution Status Admit Date Family history of autism acute September 26, 2024 1:43pm History of delivery , currently acute September 26 1:43pm Obesity affecting acute September 26, 2024 1:43pm acute September 26 1:43pm Supervision of high-risk acute September 26, 2024 1:43pm Family history of autism acute October 21, 2024 8:36am History of delivery , currently acute October 21, 2 025 8:36am Obesity affecting acute October 21, 2024 8:36am acute October 21 8:36am Supervision of high-risk acute October 21, 2024 8:36am Family history of autism acute November 21, 2024 10:26am History of delivery , currently acute November 21 10:26am Obesity affecting acute November 21, 2024 10:26am acute November 21, 2024 10:26am Supervision of high-risk acute November 21, 2024 1 0:26am Family history of autism acute December 20, 2024 8:28am History of delivery , currently acute December 20 8:28am Obesity affecting acute December 20, 2024 8:28am acute December 20 8:28am Supervision of high-risk acute December 20, 2024 8:28am Family history of autism acute December 25, 2024 8:55am History of delivery , currently acute December 25 8:55am Obesity affecting acute December 25, 2024 8:55am Pelvic pain affecting acut e December 25, 2024 8:55am acute December 25, 2024 8:55am Supervision of high-risk acute December 25, 2024 8 :55am Family history of autism acute December 25, 2024 9:30am History of delivery , currently acute December 25 9:30am Obesity affecting acute December 25, 2024 9:30am Pelvic pain affecting acut e December 25, 2024 9:30am acute December 25, 2024 9:30am Supervision of high-risk acute December 25, 2024 9 :30am Family history of autism acute January 06, 2025 2:40pm History of delivery , currently acute January 06 2:40pm Obesity affecting acute January 06, 2025 2:40pm Pelvic pain affecting acut e January 06, 2025 2:40pm acute January 06 2:40pm Sterilization acute January 06, 2025 2:40pm Supervision of high-risk acute January 06, 2025 2:40pm [facility][1] Services Work Phone: 1(380) 904-662903-12-2025 Evaluation note* Diagnosis Onset Date Resolution Status Admit Date Family history of autism acute September 04, 2024 10:51am History of delivery , currently acute September 04, 2 025 10:51am Obesity affecting acute September 04, 2024 10:51am acute September 04 10:51am Supervision of high-risk acute September 04, 2024 10:51am Pelvic pain affecting in first trimester, antepartum inactive September 04, 2024 10:51am Family history of autism acute September 26, 2024 1:43pm History of delivery , currently acute September 26 1:43pm Obesity affecting acute September 26, 2024 1:43pm acute September 26 1:43pm Supervision of high-risk acute September 26, 2024 1:43pm Family history of autism acute October 21, 2024 8:36am History of delivery , currently acute October 21, 025 8:36am Obesity affecting acute October 21, 2024 8:36am acute October 21 8:36am Supervision of high-risk acute October 21, 2024 8:36am Family history of autism acute November 21, 2024 10:26am History of delivery , currently acute November 21 10:26am Obesity affecting acute November 21, 2024 10:26am acute November 21, 2024 10:26am Supervision of high-risk acute November 21, 2024 1 0:26am Family history of autism acute December 20, 2024 8:28am History of delivery , currently acute December 20 8:28am Obesity affecting acute December 20, 2024 8:28am acute December 20 8:28am Supervision of high-risk acute December 20, 2024 8:28am Family history of autism acute December 25, 2024 8:55am History of delivery , currently acute December 25 8:55am Obesity affecting acute December 25, 2024 8:55am Pelvic pain affecting acute December 25, 2024 8 :55am acute December 25, 2024 8:55am Supervision of high-risk acute December 25, 2024 8 :55am Family history of autism acute December 25, 2024 9:30am History of delivery , currently acute December 25 9:30am Obesity affecting acute December 25, 2024 9:30am Pelvic pain affecting acute December 25, 2024 9 :30am acute December 25, 2024 9:30am Supervision of high-risk acute December 25, 2024 9 :30am [facility] Work Phone: 1(107) 311-177403-07-2025 Discharge summary [facility] Medical Records Department [address] [place] [address] Emergency Department Summary 08/30/24 MR#: [id number] Acct: [id number] Name: QUAN RODGERS Rep #:[id number] : 2000 24 From: Christiano Villafuerte MD PCP: Care Physician,No Primary Status :REG ER Location: ED HPI HPI - GI History of Present Illness Chief Complaint: Abd Pain Informant: patient and PCP (OB Dr. Handley) Narrative Narrative: 24-year-old female states she started having left lower pelvic/abdominal pain about 4 or 5 hours ago. She is 9 weeks . 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 G2, . She states she was having some trouble urinating tonight 2,when she felt like she needed to go she only dribbled a little. She denies any hematuria. No dysuria. No pain in her flank or back. No nausea or vomiting. No fevers or chills. Normal bowel movements. [facility] Medical History Chorioamnionitis delivery delivered Home Medications ?Medication ?Instructions ?Recorded ?Last Taken ?Type NK 08/30/24 Unknown History Allergy/AdvReac Type Severity Reaction Status Date / Time No Known Allergies Allergy Verified 08/30/24 00:43 Surgical History History of section History of surgery Social History adopted: No household members: children and other details: mom housing: house number of children: 1 current occupational status: employed 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[employer] current occupational exposures/hazards: No pets and animals: No history of recent travel: No sexually active: Yes Smoking Status: Former smoker second hand exposure: No alcohol intake: never substance use type: does not use well-balanced diet: daily or most days caffeine: Yes Type: carbonated beverages eating out: rarely or never during the past year weight has: remained stable what type of physical activity do you participate in: walking frequency: 1-2 times per week duration: < 15 minutes/day aly/buddhist: None seatbelt use: always do you feel safe at home: Yes additional social history: : Adolph NOBLE ED Constitutional Constitutional ED: Denies chills or fever(s) Eyes Eyes: Denies change in vision or diplopia ENT ENT ED: Denies rhinorrhea or sore throat Cardiovascular Cardiovascular: Denies chest pain or palpitations Respiratory/Chest Respiratory/Chest: Denies cough or dyspnea Gastrointestinal Gastrointestinal: Reports abdominal pain; Denies diarrhea, nausea or vomiting Genitourinary Genitourinary ED: Denies dysuria, hematuria, vaginal bleeding or vaginal discharge Musculoskeletal Musculoskeletal: Denies back pain or neck pain Integumentary Denies abscess or rash Neurologic Neurologic: Denies headache(s), paresthesias or weakness Psychiatric Psychiatric: Denies anxiety or suicidal thoughts EXAM Physical Exam Const Vital Signs: 08/30/24 00:40 Temperature 97.0 F L Temperature Source Oral Pulse Rate 81 Respiratory Rate 18 Blood Pressure 130/69 H Blood Pressure Mean 89 Pulse Ox 99 Oxygen Delivery Method Room Air Positive well nourished and well developed General Appearance ED: well developed and NAD HEENT Reports moist mucous membranes normocephalic and atraumatic Eyes PERRL and EOMs intact bilaterally Neck full ROM and supple Resp normal respiratory effort and clear to auscultation bilaterally Cardio regular rate, regular rhythm and no murmurs GI non-distended GI Narrative: Very tender in the left pelvis with some voluntary guarding otherwise benign abdomen. Auscultation: normoactive bowel sounds Palpation: soft Speculum Exam - Vagina: Negative for vaginal bleeding or vaginal discharge Back/Spine no CVA tenderness General Back: other FROM Extremity normal to inspection General Extremety ED: Negative for edema, pulses abnormal or tenderness General Extremity: Negative for edema or pulses abnormal Neuro oriented x3, CN's II-XII intact bilaterally and no sensory deficits noted Sensorium / Orientation: awake and alert Motor Exam: strength 5/5 throughout Skin no rashes or lesions noted and no wounds MDM MDM MDM Narrative Medical decision making narrative: Patient wanted morphine for pain. We discussed the pros and cons of doing that when you are , she understands and would like a dose because she was in a lot of pain although she looked well. She said it really helped. I obtained a quantitative hCG, which is over 100,000, and an emergent ultrasound of the pelvis, transvaginal. I reviewed the images and the result which I agree with, it shows a single live intrauterine and no signs of an adnexal mass oneither side. Ureterolithiasis and ureteral colic are in the differential as well, I sent urinalysis shows no blood which does not necessarily rule that out,she has 100 leukocyte esterase and 5-10 white blood cells but more epit helials, and she incidentally does have urate which can cause kidney stones in the right setting. Iadvised her that I would recommend only Tylenol for pain, and I am sending her home with some urinestrainers to do for a couple days, if she has no more pain then she can discontinue that. I do not think the urinalysis results indicate an acute infection but am sending a culture anyway because sheis . She can follow-up with her OB. Lab Data Attestation: I reviewed the patient's lab results. Labs: Laboratory Results - last 24 hr 08/30/24 08/30/24 00:50 01:05 HCG, Quant [id number] H Urine Color Yellow Urine Clarity Cloudy Urine pH 6.0 Ur Specific [place] 1.025 Urine Protein 30 H Urine Glucose (UA) Normal Urine Ketones Negative Urine Occult Blood Negative Urine Nitrite Negative Urine Bilirubin Negative Urine Urobilinogen 1 H Ur Leukocyte Esterase 100 H Urine RBC 0 SEEN Urine WBC 5-10 SEEN Ur Squamous Epith Cells 10-25 SEEN Amorphous Sediment 1+ URATE Urine Bacteria RARE Urine Mucus 0 SEEN Radiography Diagnostic Testing: Clinical Impression(s) from Imaging Studies Obstetrics Ultrasound 08/30/24 00:55 IMPRESSION: Single live intrauterine measuring 9 weeks and 3 days by crown-rump length. heart tones 177 beats per minute.. Reading Location: [facility] Discharge Plan Triage Chief Complaint: Abd Pain ED Provider: Christiano Villafuerte Dx/Rx/DC Orders Clinical Impression: Pelvic pain affecting in first trimester, antepartum Instructions: ED Flank Pain, Uncertain Cause, ED Pelvic Pain, Unknown Cause, EDUrine Strainer Prescriptions: No Action NK Primary Care Provider: Care Physician,No Primary Referrals: Renate Handley MD [Med Staff - Active Staff] - 1-2 Days if not improving Activity Restrictions/Additional Instructions: Strain your urine for a couple days. If ear pain does not return, you may stop. We sent a urine culture. If it returns positive for infection, you should receive a call from someone but follow-up with your OB anyway just in case. Tylenol as needed for pain, you can take up to 4000 mg every 24 hours if you arecontinuing to take it throughout the day every day. This equates to 2 extra strength Tylenol, 1000 mg, about every 6 hours. Print Language: Kittitian Disposition Disposition: Home, Self Care What to do if you have Problems For any increased pain, shortness of breath, bleeding, nausea or vomiting, chestpain, or any unexpected problems, contact your Primary Care Provider. Call [facility] ([phone]) or report tothe closest Emergency Room. Call 911 if necessary. 08/30/24 0222 Cosigner Signature (if applicable): CC: Dr. Renate Handley MD; No Primary Care Physician ~ Signed [facility]03-07-2025 Radiology Diagnostic study note [facility] Imaging Services [address] [place], [place] [address] Transvaginal w/Preg US MR#: [id number] Acct: [id number] Name: QUAN RODGERS KELTON Rep #: [id number] : 2000 F 24 From: Stalin Lynn MD PCP: Care Physician,No Primary Status: REG ER Study:Transvaginal w/Preg US Date of Exam: 08/30/24 Exam# [id number] Ordering Dr: Geovanni Villafuerte MD PROCEDURE: TRANSVAGINAL W/PREG US REASON FOR EXAM: Left pelvic pain, 9 weeks COMPARISON: None. FINDINGS: The uterus measures 13.9 x 6.2 x 6.8 cm. Single live intrauterine measuring 9 weeks and 3 days by crown-rump length fundal portionof the uterus. heart tones 177 beats per minute. Yolk sac is present, 4 mm. No evidence of yazmin- sachaemorrhage. The cervix appears closed. The right and left ovaries are not identified. No evidence of adnexal mass. No free fluid seen. LINDA by ultrasound 04/03/2025, by last menstrual period 03/31/2025. US/Transvaginal w/Preg US IMPRESSION: Single live intrauterine measuring 9 weeks and 3 days by crown-rump length. heart tones 177 beats per minute.. Reading Location: [id number] CC: Dr. Christiano Villafuerte MD; No Primary Care Physician ~ Monotype Keyboard Operator: Signed [facility]03-06-2025 Evaluation note* Diagnosis Onset Date Resolution Status Admit Date Family history of autism acute August 29, 2024 11:05am History of delivery , currently acute August 29 11:05am Obesity affecting acute August 29, 2024 11:05am acute August 29 11:05am Supervision of high-risk acute August 29, 2024 11:05am [facility] Work Phone: 1(260) 518-552203-06-2025 Evaluation note* Diagnosis Onset Date Resolution Status Admit Date Family history of autism acute August 29, 2024 11:05am History of delivery , currently acute August 29 11:05am Obesity affecting acute August 29, 2024 11:05am acute August 29 11:05am Supervision of high-risk acute August 29, 2024 11:05am Family history of autism acute September 04, 2024 10:51am History of delivery , currently acute September 04, 2 025 10:51am Obesity affecting acute September 04, 2024 10:51am acute September 04 10:51am Supervision of high-risk acute September 04, 2024 10:51am Pelvic pain affecting in first trimester, antepartum inactive September 04, 2024 10:51am [facility] Work Phone: 1([phone]) 851-459703-06-2025 Evaluation note* Diagnosis Onset Date Resolution Status Admit Date Family history of autism acute August 29, 2024 11:05am History of delivery , currently acute August 29 11:05am Obesity affecting acute August 29, 2024 11:05am acute August 29 11:05am Supervision of high-risk acute August 29, 2024 11:05am Family history of autism acute September 04, 2024 10:51am History of delivery , currently acute September 04, 025 10:51am Obesity affecting acute September 04, 2024 10:51am acute September 04 10:51am Supervision of high-risk acute September 04, 2024 10:51am Pelvic pain affecting in first trimester, antepartum inactive September 04, 2024 10:51am Family history of autism acute September 26, 2024 1:43pm History of delivery , currently acute September 26 1:43pm Obesity affecting acute September 26, 2024 1:43pm acute September 26 1:43pm Supervision of high-risk acute September 26, 2024 1:43pm [facility] Work Phone: 1([phone]) 701-750703-06-2025 Evaluation note* Diagnosis Onset Date Resolution Status Admit Date Family history of autism acute August 29, 2024 11:05am History of delivery , currently acute August 29 11:05am Obesity affecting acute August 29, 2024 11:05am acute August 29 11:05am Supervision of high-risk acute August 29, 2024 11:05am Family history of autism acute September 04, 2024 10:51am History of delivery , currently acute September 04, 2 025 10:51am Obesity affecting acute September 04, 2024 10:51am acute September 04 10:51am Supervision of high-risk acute September 04, 2024 10:51am Pelvic pain affecting in first trimester, antepartum inactive September 04, 2024 10:51am Family history of autism acute September 26, 2024 1:43pm History of delivery , currently acute September 26 1:43pm Obesity affecting acute September 26, 2024 1:43pm acute September 26 1:43pm Supervision of high-risk acute September 26, 2024 1:43pm Family history of autism acute October 21, 2024 8:36am History of delivery , currently acute October 21 025 8:36am Obesity affecting acute October 21, 2024 8:36am acute October 21 8:36am Supervision of high-risk acute October 21, 2024 8:36am [facility] Work Phone: 1([phone]) 811-613303-06-2025 Evaluation note* Diagnosis Onset Date Resolution Status Admit Date Family history of autism acute August 29, 2024 11:05am History of delivery , currently acute August 29 11:05am Obesity affecting acute August 29, 2024 11:05am acute August 29 11:05am Supervision of high-risk acute August 29, 2024 11:05am Family history of autism acute September 04, 2024 10:51am History of delivery , currently acute September 04 10:51am Obesity affecting acute September 04, 2024 10:51am acute September 04 10:51am Supervision of high-risk acute September 04, 2024 10:51am Pelvic pain affecting in first trimester, antepartum inactive September 04, 2024 10:51am Family history of autism acute September 26, 2024 1:43pm History of delivery , currently acute September 26 1:43pm Obesity affecting acute September 26, 2024 1:43pm acute September 26 1:43pm Supervision of high-risk acute September 26, 2024 1:43pm Family history of autism acute October 21, 2024 8:36am History of delivery , currently acute October 21 2 025 8:36am Obesity affecting acute October 21, 2024 8:36am acute October 21 8:36am Supervision of high-risk acute October 21, 2024 8:36am Family history of autism acute November 21, 2024 10:26am History of delivery , currently acute November 21 10:26am Obesity affecting acute November 21, 2024 10:26am acute November 21, 2024 10:26am Supervision of high-risk acute November 21, 2024 [address] [facility] Work Phone: 1([phone]) 822-868503-06-2025 Evaluation note* Diagnosis Onset Date Resolution Status Admit Date Family history of autism acute August 29, 2024 11:05am History of delivery , currently acute August 29 11:05am Obesity affecting acute August 29, 2024 11:05am acute August 29 11:05am Supervision of high-risk acute August 29, 2024 11:05am Family history of autism acute September 04, 2024 10:51am History of delivery , currently acute September 04 10:51am Obesity affecting acute September 04, 2024 10:51am acute September 04 10:51am Supervision of high-risk acute September 04, 2024 10:51am Pelvic pain affecting in first trimester, antepartum inactive September 04, 2024 10:51am Family history of autism acute September 26, 2024 1:43pm History of delivery , currently acute September 26 1:43pm Obesity affecting acute September 26, 2024 1:43pm acute September 26 1:43pm Supervision of high-risk acute September 26, 2024 1:43pm Family history of autism acute October 21, 2024 8:36am History of delivery , currently acute October 21, 025 8:36am Obesity affecting acute October 21, 2024 8:36am acute October 21 8:36am Supervision of high-risk acute October 21, 2024 8:36am Family history of autism acute November 21, 2024 10:26am History of delivery , currently acute November 21 10:26am Obesity affecting acute November 21, 2024 10:26am acute November 21, 2024 10:26am Supervision of high-risk acute November 21, 2024 1 0:26am Family history of autism acute December 20, 2024 8:28am History of delivery , currently acute December 20 8:28am Obesity affecting acute December 20, 2024 8:28am acute December 20 8:28am Supervision of high-risk acute December 20, 2024 8:28am [facility][1] [facility] Work Phone: 1([phone]) 279-545603-06-2025 Evaluation note* Diagnosis Onset Date Resolution Status Admit Date Family history of autism acute August 29, 2024 11:05am History of delivery , currently acute August 29 11:05am Obesity affecting acute August 29, 2024 11:05am acute August 29 11:05am Supervision of high-risk acute August 29, 2024 11:05am Family history of autism acute September 04, 2024 10:51am History of delivery , currently acute September 04, 025 10:51am Obesity affecting acute September 04, 2024 10:51am acute September 04 10:51am Supervision of high-risk acute September 04, 2024 10:51am Pelvic pain affecting in first trimester, antepartum inactive September 04, 2024 10:51am Family history of autism acute September 26, 2024 1:43pm History of delivery , currently acute September 26 1:43pm Obesity affecting acute September 26, 2024 1:43pm acute September 26 1:43pm Supervision of high-risk acute September 26, 2024 1:43pm Family history of autism acute October 21, 2024 8:36am History of delivery , currently acute October 21, 2 025 8:36am Obesity affecting acute October 21, 2024 8:36am acute October 21 8:36am Supervision of high-risk acute October 21, 2024 8:36am Family history of autism acute November 21, 2024 10:26am History of delivery , currently acute November 21 10:26am Obesity affecting acute November 21, 2024 10:26am acute November 21, 2024 10:26am Supervision of high-risk acute November 21, 2024 1 0:26am Family history of autism acute December 20, 2024 8:28am History of delivery , currently acute December 20 8:28am Obesity affecting acute December 20, 2024 8:28am acute December 20 8:28am Supervision of high-risk acute December 20, 2024 8:28am Family history of autism acute December 25, 2024 8:55am History of delivery , currently acute December 25 8:55am Obesity affecting acute December 25, 2024 8:55am acute December 25, 2024 8:55am Supervision of high-risk acute December 25, 2024 8 :55am [facility][1] Services Work Phone: [phone]) 198-343803-06-2025 Evaluation note* Diagnosis Onset Date Resolution Status Admit Date Family history of autism acute August 29, 2024 11:05am History of delivery , currently acute August 29 11:05am Obesity affecting acute August 29, 2024 11:05am acute August 29 11:05am Supervision of high-risk acute August 29, 2024 11:05am Family history of autism acute September 04, 2024 10:51am History of delivery , currently acute September 04, 025 10:51am Obesity affecting acute September 04, 2024 10:51am acute September 04 10:51am Supervision of high-risk acute September 04, 2024 10:51am Pelvic pain affecting in first trimester, antepartum inactive September 04, 2024 10:51am Family history of autism acute September 26, 2024 1:43pm History of delivery , currently acute September 26 1:43pm Obesity affecting acute September 26, 2024 1:43pm acute September 26 1:43pm Supervision of high-risk acute September 26, 2024 1:43pm Family history of autism acute October 21, 2024 8:36am History of delivery , currently acute October 21, 2 025 8:36am Obesity affecting acute October 21, 2024 8:36am acute October 21 8:36am Supervision of high-risk acute October 21, 2024 8:36am Family history of autism acute November 21, 2024 10:26am History of delivery , currently acute November 21 10:26am Obesity affecting acute November 21, 2024 10:26am acute November 21, 2024 10:26am Supervision of high-risk acute November 21, 2024 1 0:26am Family history of autism acute December 20, 2024 8:28am History of delivery , currently acute December 20 8:28am Obesity affecting acute December 20, 2024 8:28am acute December 20 8:28am Supervision of high-risk acute December 20, 2024 8:28am Family history of autism acute December 25, 2024 8:55am History of delivery , currently acute December 25 8:55am Obesity affecting acute December 25, 2024 8:55am Pelvic pain affecting acute December 25, 2024 8 :55am acute December 25, 2024 8:55am Supervision of high-risk acute December 25, 2024 8 :55am [facility] Work Phone: 1([phone]) 820-488103-06-2025 NotePap Smear Specimen AdequacyMarch 2024 12:48pmComment.Satisfactory for evaluation. Endocervical and/or squamous metaplasticcells (endocervical component)are present.[facility] INTER[facility]ACED A#[id number] Health [facility]burgComment on above:Satisfactory for evaluation. Endocervical and/or squamous metaplasticcells (endocervical component)are present.08-29-2024 NotePap Smear Specimen AdequacyMarch 2024 12:48pmComment.Satisfactory for evaluation. Endocervical and/or squamous metaplasticcells (endocervical component)are present.[facility] A#[id number] Health [facility]burgComment on above:Satisfactory for evaluation. Endocervical and/or squamous metaplasticcells (endocervical component)are present.Discharge summary Author Christiano Villafuerte [facility] Note Date/Time August 30, 2024 2:22 am [facility] Medical Records Department [address] [place] [address] Emergency Department Summary 08/30/24 MR#: [id number] Acct: [id number] Name: QUAN RODGERS KELTON Rep #:[id number] : 2000 24 From: Christiano Villafuerte MD PCP: Care Physician,No Primary Status :REG ER Location: ED HPI HPI - GI History of Present Illness Chief Complaint: Abd Pain Informant: patient and PCP (OB Dr. Handley) Narrative Narrative: 24-year-old female states she started having left lower pelvic/abdominal pain about 4 or 5 hours ago. She is 9 weeks . She states earlier today she had a checkup in the office and boat assembler did an ultrasound and told her she had an IUP. G2, . She states she was having some trouble urinating tonight 2,when she felt like she needed to go she only dribbled a little. She denies any hematuria. No dysuria. No pain in her flank or back. No nausea or vomiting. No fevers or chills. Normal bowel movements. 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[employer] current occupational exposures/hazards: No pets and animals: No history of recent travel: No sexually active: Yes Smoking Status: Former smoker second hand exposure: No alcohol intake: never substance use type: does not use well-balanced diet: daily or most days caffeine: Yes Type: carbonated beverages eating out: rarely or never during the past year weight has: remained stable what type of physical activity do you participate in: walking frequency: 1-2 times per week duration: < 15 minutes/day aly/buddhist: None seatbelt use: always do you feel safe at home: Yes additional social history: : Adolph [employer] REAL ED Constitutional Constitutional ED: Denies chills or fever(s) Eyes Eyes: Denies change in vision or diplopia ENT ENT ED: Denies rhinorrhea or sore throat Cardiovascular Cardiovascular: Denies chest pain or palpitations Respiratory/Chest Respiratory/Chest: Denies cough or dyspnea Gastrointestinal Gastrointestinal: Reports abdominal pain; Denies diarrhea, nausea or vomiting Genitourinary Genitourinary ED: Denies dysuria, hematuria, vaginal bleeding or vaginal discharge Musculoskeletal Musculoskeletal: Denies back pain or neck pain Integumentary Denies abscess or rash Neurologic Neurologic: Denies headache(s), paresthesias or weakness Psychiatric Psychiatric: Denies anxiety or suicidal thoughts EXAM Physical Exam Const Vital Signs: 08/30/24 00:40 Temperature 97.0 F L Temperature Source Oral Pulse Rate 81 Respiratory Rate 18 Blood Pressure 130/69 H Blood Pressure Mean 89 Pulse Ox 99 Oxygen Delivery Method Room Air Positive well nourished and well developed General Appearance ED: well developed and NAD HEENT Reports moist mucous membranes normocephalic and atraumatic Eyes PERRL and EOMs intact bilaterally Neck full ROM and supple Resp normal respiratory effort and clear to auscultation bilaterally Cardio regular rate, regular rhythm and no murmurs GI non-distended GI Narrative: Very tender in the left pelvis with some voluntary guarding otherwise benign abdomen. Auscultation: normoactive bowel sounds Palpation: soft Speculum Exam - Vagina: Negative for vaginal bleeding or vaginal discharge Back/Spine no CVA tenderness General Back: other FROM Extremity normal to inspection General Extremety ED: Negative for edema, pulses abnormal or tenderness General Extremity: Negative for edema or pulses abnormal Neuro oriented x3, CN's II-XII intact bilaterally and no sensory deficits noted Sensorium / Orientation: awake and alert Motor Exam: strength 5/5 throughout Skin no rashes or lesions noted and no wounds MDM MDM MDM Narrative Medical decision making narrative: Patient wanted morphine for pain. We discussed the pros and cons of doing that when you are , she understands and would like a dose because she was in a lot of pain although she looked well. She said it really helped. I obtained a quantitative hCG, which is over 100,000, and an emergent ultrasound of the pelvis, transvaginal. I reviewed the images and the result which I agree with, it shows a single live intrauterine and no signs of an adnexal mass oneither side. Ureterolithiasis and ureteral colic are in the differential as well, I sent urinalysis shows no blood which does not necessarily rule that out,she has 100 leukocyte esterase and 5-10 white blood cells but more epithelials, and she incidentally does have urate which can cause kidney stones in the right setting. I advised her that I would recommend only Tylenol for pain, and I am sending her home with some urine strainers to do for a couple days, if she has no more pain then she can discontinue that. I do not think the urinalysis results indicate an acute infection but am sending a culture anyway because she is . She can follow-up with her OB. Lab Data Attestation: I reviewed the patient's lab results. Labs: Laboratory Results - last 24 hr 08/30/24 08/30/24 00:50 01:05 HCG, Quant [id number] H Urine Color Yellow Urine Clarity Cloudy Urine pH 6.0 Ur Specific [place] 1.025 Urine Protein 30 H Urine Glucose (UA) Normal Urine Ketones Negative Urine Occult Blood Negative Urine Nitrite Negative Urine Bilirubin Negative Urine Urobilinogen 1 H Ur Leukocyte Esterase 100 H Urine RBC 0 SEEN Urine WBC 5-10 SEEN Ur Squamous Epith Cells 10-25 SEEN Amorphous Sediment 1+ URATE Urine Bacteria RARE Urine Mucus 0 SEEN Radiography Diagnostic Testing: Clinical Impression(s) from Imaging Studies Obstetrics Ultrasound 08/30/24 00:55 IMPRESSION: Single live intrauterine measuring 9 weeks and 3 days by crown-rump length. heart tones 177 beats per minute.. Reading Location: [facility] Discharge Plan Triage Chief Complaint: Abd Pain ED Provider: Christiano Villafuerte Dx/Rx/DC Orders Clinical Impression: Pelvic pain affecting in first trimester, antepartum Instructions: ED Flank Pain, Uncertain Cause, ED Pelvic Pain, Unknown Cause, EDUrine Strainer Prescriptions: No Action NK Primary Care Provider: Care Physician,No Primary Referrals: Renate Handley MD [Med Staff - Active Staff] - 1-2 Days if not improving Activity Restrictions/Additional Instructions: Strain your urine for a couple days. If ear pain does not return, you may stop. We sent a urine culture. If it returns positive for infection, you should receive a call from someone but follow-up with your OB anyway just in case. Tylenol as needed for pain, you can take up to 4000 mg every 24 hours if you arecontinuing to take it throughout the day every day. This equates to 2 extra strength Tylenol, 1000 mg, about every 6 hours. Print Language: Kittitian Disposition Disposition: Home, Self Care What to do if you have Problems For any increased pain, shortness of breath, bleeding, nausea or vomiting, chestpain, or any unexpected problems, contact your Primary Care Provider. Call [facility] ([phone]) or report to the closest Emergency Room. Call 911 if necessary. 08/30/24221 <Electronically signed by Christiano Villafuerte MD> Cosigner Signature (if applicable): CC: Dr. 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 Obesity affecting acute acute Supervision of normal acute UTI in acute 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 Obesity affecting acute acute Supervision of normal acute UTI in acute 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 Obesity affecting acute acute Supervision of normal acute UTI in acute 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 Obesity affecting acute acute Supervision of normal acute UTI in acute [facility] Work Phone: Evaluation note* Diagnosis Onset Date Resolution Status Medium chain acyl CoA dehydrogenase deficiency resolved Obesity affecting resolved resolved Supervision of normal resolved UTI in resolved Vaginal bleeding affecting early resolved Obesity affecting resolved resolved Supervision of normal resolved Medium chain acyl CoA dehydrogenase deficiency resolved Obesity affecting resolved resolved Supervision of normal resolved UTI in resolved Vaginal bleeding affecting early resolved Medium chain acyl CoA dehydrogenase deficiency resolved Obesity affecting resolved resolved Supervision of normal resolved UTI in resolved Medium chain acyl CoA dehydrogenase deficiency resolved Obesity affecting resolved resolved Supervision of normal resolved UTI in resolved Medium chain acyl CoA dehydrogenase deficiency resolved Obesity affecting resolved resolved Supervision of normal resolved UTI in resolved Medium chain acyl CoA dehydrogenase deficiency resolved Obesity affecting resolved resolved Supervision of normal resolved UTI in resolved False labor after 37 completed weeks of gestation resolved Medium chain acyl CoA dehydrogenase deficiency resolved Obesity affecting resolved resolved Supervision of normal resolved UTI in resolved Medium chain acyl CoA dehydrogenase deficiency resolved Obesity affecting resolved resolved Supervision of normal resolved UTI in resolved Medium chain acyl CoA dehydrogenase deficiency resolved Obesity affecting resolved resolved Supervision of normal resolved UTI in resolved Arrest of dilation, delivered, current hospitalization acute delivery delivered acute Chorioamnionitis acute False labor after 37 completed weeks of gestation resolved Medium chain acyl CoA dehydrogenase deficiency resolved Obesity affecting resolved resolved Supervision of normal resolved UTI in resolved [facility] Work Phone: Evaluation note* Diagnosis Onset Date Resolution Status delivery delivered acute care and examination noneactive [facility] Work Phone: Evaluation noteNo assessment information available [facility] Work Phone: Hospital Discharge instructions Additional Instructions Keep your scheduled appointment with Dr. Reante Handley tomorrow after picking up your Depo-Provera.[facility] Work Phone: Hospital Discharge instructions Additional Instructions Strain your urine for a couple days. If ear pain does not return, you may stop. We sent a urine culture. If it returns positive for infection, you should receive a call from someone but follow-up with your OB anyway just in case. Tylenol as needed for pain, you can take up to 4000 mg every 24 hours if you are continuing to take it throughout the day every day. This equates to 2 extra strength Tylenol, 1000 mg, about every 6 hours.[facility] Work Phone: Hospital Discharge instructionsAdditional Instructions may use heating pad, Tylenol and warm bathsWooster [facility] Work Phone: Progress note Author Renate Handley [facility] Note Date/Time November 21, 2024 11:13 am [facility] [address], [address] [place] [address] OFFICE VISIT Date of Service: 11/21/24 MR#: [id number] Acct: [id number] Name: UQAN RODGERS KELTON Rep #: [id number] : 2000 Provider: Dr. Dameon Handley MD Age/Sex: 24/F Location: [facility] Status: Signed Intake Vital Signs 09/26/24 13:48 10/25/24 18:55 11/21/24 10:42 Height 5 ft 11 in 5 ft 11 in 5 ft 11 in Weight: 259 lb BMI 36.1 BP 113/68 Intake Visit Reasons: 21wk ob Classification Analyst Required: No Is patient in pain?: No Allergies No Known Allergies Allergy (Verified 11/21/24 10:45) Medications ?Medication ?Instructions ?Recorded ?Confirmed ?Type metoclopramide HCl 10 mg tablet 10 mg PO Q6H PRN nause a and 10/28/24 11/21/24 Rx (Reglan) vomiting #30 tabs Last Menstrual Period: 06/24/24 Zika: Zika virus screening: Negative : No PFSH PFSH Medical History Chorioamnionitis delivery delivered Surgical History History of section History of surgery Social History adopted: No household members: children and other details: mom housing: house number of children: 1 current occupational status: employed 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[employer] current occupational exposures/hazards: No pets and animals: No history of recent travel: No sexually active: Yes Smoking Status: Former smoker second hand exposure: No alcohol intake: never substance use type: does not use well-balanced diet: daily or most days caffeine: Yes Type: carbonated beverages eating out: rarely or never during the past year weight has: remained stable what type of physical activity do you participate in: walking frequency: 1-2 times per week duration: < 15 minutes/day aly/buddhist: None seatbelt use: always do you feel safe at home: Yes additional social history: : Max History 2 Elective abortions Hx Para 1 Spontaneous abortions Hx # Term Pregnancies 1 Ectopic pregnancies Hx # Pregnancies Multiple births # of living children 1 Past Pregnancies Del. Date Name GA/Weeks Outcome Route Bth Weight Infant Gen Labor Lgth Anesthesia Del Locatn Provider FOB 11/06/21 Babak 39 live - full term 8lbs 14oz Male epidural [facility] Renate Farfan Delivery Date: 11/06/21 Last Updated by: Adri Kimble, RN LTCS SM AOD 6 cm boy Babak IOL 41 HPI 21wk ob Details: QUAN RODGERS is a 24 year old who presents for routine OB visit. OB Visit LINDA Calculator Estimated Delivery Date Method Current WG Current Estimate 03/31/25 LMP (Certain) 21w 3d Other Estimates 03/30/25 Ultrasound #1 21w 4d Expected Delivery Route/Plan Repeat C/S with SM Specific Issue/Plans Covid status: [] Flu vaccine: [] Tdap vaccine: [] Rhogam: [] LARC form signed: [] Problem list reviewed and updated with the most current plan of care details and appropriate orders placed. Relevant counseling for the gestational age provided. Continue routine care and follow up unless otherwise noted in visit notes/problem list details Initial Weight: 259 lb Date -?-?-?-?-?-?-?-?-?-?-?-?- EGA Weight BP Urine Prot -?-?-?-?-?-?-?-?-?-?-?-?- Glucose FHR FuHt Pres Dilation -?-?-?--?-?-?-?-?-?-?-?-?- Effaced St Visit Note 08/29/24 -?-?-?-?-?-?-?-?-?-?-?-?- 9w 3d 259 lb 6 oz (+6 oz) 121/78 -?-?-?-?-?-?-?-?-?-?-?-?- 168 -?-?-?-?-?-?-?-?-?-?-?-?- KW- CRL cons wit h dates. Declines NIPT. requesting 39 week RC/S 09/04/24 -?-?-?-?-?-?-?-?-?-?-?-?- 10w 2d 255 lb 4 oz (-3 lb 12 oz) 113/73 Negative -?-?-?-?-?-?-?-?-?-?-?-?- Negative 158 -?-?-?-?-?-?-?-?-?-?-?-?- JV- follow up ER visit today. She possibly passed a kidney stone and feeling better until she had to lift someone heavy at work. FHT seen today on bedside scan. wants NIPT now. plans to return to do this. work restriction letter given. if pain returns will order a KUB 09/26/24 -?-?-?-?-?-?-?-?-?-?-?-?- 13w 3d 258 lb (-16 oz) 123/73 Negative -?-?-?-?-?-?-?-?-?-?-?-?- Negative 155 -?-?-?-?-?-?-?-?-?-?-?-?- JV- no complaint s. is going to medicaid office today and will let us know if approved. if approved will order mfm ultrasound and NIPT with new ob labs. 10/21/24 -?-?-?-?-?-?-?-?-?-?-?-?- 17w 0d 258 lb 2 oz (-14 oz) 115/71 -?-?-?-?-?-?-?-?-?-?-?-?- 148 -?-?-?-?-?-?-?-?-?-?-?-?- MH-No VB. ?flutt ers. Reviewed nl PN labs. Girl Unable to void this appt. Nausea persists, refugio helpful 11/21/24 -?-?-?-?-?-?-?-?-?-?-?-?- 21w 3d 259 lb (+0 oz) 113/68 -?-?-?-?-?-?-?-?-?-?-?-?- 150 20 -?-?-?-?-?-?-?-?-?-?-?-?- SM- SM- no vb cramping some inte rmittent left side pain suspect round ligament, UA and Culture ACOG First Trimester First Trimester: Desire for , Alcohol, Tobacco Cessation, Illicit/Recreational Drug/Substance Use, Intimate Partner Violence, Barriers to care, Unstable Housing, Communication Barriers, Environmental/Work Hazards, Anticipated Course of Care, Toxoplasmosis Precations, Use of Any medications, Sexual activity, Exercise, Dental Care, Sauna/Hot tub use, Seat Belt use, Childbirth classes/Hospital facilities, Travel, Indications for Ultrasound and Screening for Aneuploidy; Discussed Second Trimester Second Trimester: Signs and Symptoms of Labor, Selecting a care provider, Reproductive Life Planning & Contreception, Care Planning, Depression/Anxiety and Intimate Partner Violence; Discussed Tobacco Cessation Third Trimester Third Trimester: Pain Management Plans, Labor support person(s), Immediate Larc, Circumcision preference, Signs and Symptoms of Preeclampsia, Labor Signs, Feeding No and Family Medical Leave or Disability Forms ROS Const Denies fever(s) GI Reports as per HPI and Denies abdominal pain Reports as per HPI, Denies abnormal vaginal bleeding, Denies dysuria and Denies vaginal discharge Exam Const General: healthy appearing, comfortable and no acute distress GI Inspection: normal to inspection Palpation: soft and nontender Coding Level of Care Code Off vis,est,level 3 Diagnoses Family history of autism Z81.8 History of delivery, currently O34.219 Obesity affecting in second trimester, unspecified obesity type O99.212 Obesity type affecting : unspecified obesity Trimester: second trimester Supervision of high risk in second trimester O09.92 Trimester: second trimester 21 weeks gestation of Z3A.21 Weeks of gestation: 21 weeks Assessment and Plan Assessment and Plan (1) Family history of autism: Status: Acute Comment: FOB sister (2) History of delivery, currently : Status: Acute Comment: x1, Desires rpt csec with SM (3) Obesity affecting : Status: Acute Qualifiers: Obesity type affecting : unspecified obesity Trimester: second trimester Qualified Code(s): O99.212 - Obesity complicating , second trimester Comment: BMI: 35.6; HgBA1C ordered w/NOB (4) Supervision of high-risk : Status: Acute Qualifiers: Trimester: second trimester Qualified Code(s): O09.92 - Supervision of high risk , unspecified, second trimester Comment: PRR, , LINDA 03/31/25 Girl, Rao PC: Babak, : Max (5) : Status: Acute Qualifiers: Weeks of gestation: 21 weeks Qualified Code(s): Z3A.21 - 21 weeks gestation of Comment: Discussed genetic/carrier testing - prior carrier done. [place] low risk- female. unremarkable anatomy, consistent dates Orders: Orders POC Urinalysis 2 Dip (Clinic) Today 11/21/24 1113 <Electronically signed by Renate joseph MD> Date _ Renate Handley MD Cosigner Signature: Date (if applicable) CC: ~ [facility] Work Phone: Progress note Author Darianazack Eli [facility][1] Services Note Date/Time December 20, 2024 8:51 am [facility] [address] [place] [address], [address] [place] [address] OFFICE VISIT Date of Service: 12/20/24 MR#: [id number] Acct: [id number] Name: QUAN RODGERS KETLON Rep #: [id number] : 2000 Provider: KEO Eli Age/Sex: 24/F [place] [facility] Status: Signed Intake Vital Signs 09/26/24 13:48 11/21/24 10:42 12/20/24 08:29 Height 5 ft 11 in 5 ft 11 in 5 ft 11 in Weight: 262 lb BMI 36.5 BP 114/78 Intake Visit Reasons: 25wk ob Chief Complaint: 25wk OB Classification Analyst Required: No Is patient in pain?: No Allergies No Known Allergies Allergy (Verified 12/20/24 08:28) Medications ?Medication ?Instructions ?Recorded ?Confirmed ?Type metoclopramide HCl 10 mg tablet 10 mg PO Q6H PRN nause a and 10/28/24 12/20/24 Rx (Reglan) vomiting #30 tabs Last Menstrual Period: 06/24/24 : No PFSH PFSH Medical History Chorioamnionitis delivery delivered Surgical History History of section History of surgery Social History adopted: No household members: children and other details: mom housing: house number of children: 1 current occupational status: employed 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[employer] current occupational exposures/hazards: No pets and animals: No history of recent travel: No sexually active: Yes Smoking Status: Former smoker second hand exposure: No alcohol intake: never substance use type: does not use well-balanced diet: daily or most days caffeine: Yes Type: carbonated beverages eating out: rarely or never during the past year weight has: remained stable what type of physical activity do you participate in: walking frequency: 1-2 times per week duration: < 15 minutes/day aly/buddhist: None seatbelt use: always do you feel safe at home: Yes additional social history: : Max History 2 Elective abortions Hx Para 1 Spontaneous abortions Hx # Term Pregnancies 1 Ectopic pregnancies Hx # Pregnancies Multiple births # of living children 1 Past Pregnancies Del. Date Name GA/Weeks Outcome Route Bth Weight Gen Labor Lgth Anesthesia Del Locatn Provider FOB 11/06/21 Babak 39 live - full term 8lbs 14oz Male epidural [facility] Renate Handley Max Delivery Date: 11/06/21 Last Updated by: Adri Kimble RN LTCS AOD 6 cm boy Babak IOL 41 HPI 25wk ob Details: QUAN RODGERS is a 24 year old who presents for routine OB visit. OB Visit LINDA Calculator Estimated Delivery Date Method Current WG Current Estimate 03/31/25 LMP (Certain) 25w 4d Other Estimates 03/30/25 Ultrasound #1 25w 5d Expected Delivery Route/Plan Repeat C/S with Specific Issue/Plans Covid status: [] Flu vaccine: [] Tdap vaccine: [] Rhogam: [] LARC form signed: [] Problem list reviewed and updated with the most current plan of care details and appropriate orders placed. Relevant counseling for the gestational age provided. Continue routine care and follow up unless otherwise noted in visit notes/problem list details Initial Weight: 259 lb Date -?-?-?-?-?-?-?-?-?-?-?-?- EGA Weight BP Urine Prot -?-?-?-?-?-?-?-?-?-?-?-?- Glucose FHR FuHt Pres Dilation -?-?-?-?-?-?-?-?-?-?-?-?- Effaced St Visit Note 08/29/24 -?-?-?-?-?-?-?-?-?-?-?-?- 9w 3d 259 lb 6 oz (+6 oz) 121/78 -?-?-?-?-?-?-?-?-?-?-?-?- 168 -?-?-?-?-?-?-?-?-?-?-?-?- KW- CRL cons wit h dates. Declines NIPT. requesting 39 week RC/S 09/04/24 -?-?-?-?-?-?-?-?-?-?-?-?- 10w 2d 255 lb 4 oz (-3 lb 12 oz) 113/73 Negative -?-?-?-?-?-?-?-?-?-?-?-?- Negative 158 -?-?-?-?-?-?-?-?-?-?-?-?- JV- follow up ER visit today. She possibly passed a kidney stone and feeling better until she had to lift someone heavy at work. FHT seen today on bedside scan. wants NIPT now. plans to return to do this. work restriction letter given. if pain returns will order a KUB 09/26/24 -?-?-?-?-?-?-?-?-?-?-?-?- 13w 3d 258 lb (-16 oz) 123/73 Negative -?-?-?-?-?-?-?-?-?-?-?-?- Negative 155 -?-?-?-?-?-?-?-?-?-?-?-?- JV- no complaint s. is going to medicaid office today and will let us know if approved. if approved will order mfm ultrasound and NIPT with new ob labs. 10/21/24 -?-?-?-?-?-?-?-?-?-?-?-?- 17w 0d 258 lb 2 oz (-14 oz) 115/71 -?-?-?-?-?-?-?-?-?-?-?-?- 148 -?-?-?-?-?-?-?-?-?-?-?-?- MH-No VB. ?flutt ers. Reviewed nl PN labs. Girl Unable to void this appt. N abisai persists, refugio helpful 11/21/24 -?-?-?-?-?-?-?-?-?-?-?-?- 21w 3d 259 lb (+0 oz) 113/68 Negative -?-?-?-?-?-?-?-?-?-?-?-?- Negative 150 20 -?-?-?-?-?-?-?-?-?-?-?-?- SM- SM- no vb cramping some inte rmittent left side pain suspect round ligament, UA and Culture 12/20/24 -?-?-?--?-?-?-?-?-?-?-?-?- 25w 4d 262 lb (+3 lb) 114/78 -?-?-?-?-?-?-?-?-?-?-?-?- 157 25 -?-?-?-?-?-?-?-?-?-?-?-?- LC- no vb/crampi ng. good fm. no concerns today. 28 week labs ordered. ACOG First Trimester First Trimester: Desire for , Alcohol, Tobacco Cessation, Illicit/Recreational Drug/Substance Use, Intimate Partner Violence, Barriers to care, Unstable Housing, Communication Barriers, Environmental/Work Hazards, Anticipated Course of Care, Toxoplasmosis Precations, Use of Any medications, Sexual activity, Exercise, Dental Care, Sauna/Hot tub use, Seat Belt use, Childbirth classes/Hospital facilities, Travel, Indications for Ultrasound and Screening for Aneuploidy; Discussed Second Trimester Second Trimester: Signs and Symptoms of Labor, Selecting a care provider, Reproductive Life Planning & Contreception, Care Planning, Depression/Anxiety and Intimate Partner Violence; Discussed Tobacco Cessation Third Trimester Third Trimester: Pain Management Plans, Labor support person(s), Immediate Larc, Circumcision preference, Movement Monitoring, Signs and Symptoms of Preeclampsia, Labor Signs, Feeding No and Family Medical Leave or Disability Forms ROS Const Reports system reviewed and no additional complaints, except as documented GI Denies nausea and Denies vomiting Denies urinary hesitancy and Denies urinary urgency Exam Const Orientation: alert, awake and oriented x3 Resp Effort & Inspection: normal respiratory effort, able to speak in complete sentences and symmetric chest movement GI Palpation: soft (gravid) OB/External & Speculum: other (fundus appriopriate for GA) Coding Level of Care Code OB Routine Diagnoses Family history of autism Z81.8 Obesity affecting in second trimester, unspecified obesity type O99.212 Obesity type affecting : unspecified obesity Trimester: second trimester History of delivery, currently O34.219 Supervision of high risk in second trimester O09.92 Trimester: second trimester 25 weeks gestation of Z3A.25 Weeks of gestation: 25 weeks Assessment and Plan Assessment and Plan (1) Family history of autism: Status: Acute Comment: FOB sister (2) Obesity affecting : Status: Acute Qualifiers: Obesity type affecting : unspecified obesity Trimester: second trimester Qualified Code(s): O99.212 - Obesity complicating , second trimester Comment: BMI: 35.6; HgBA1C ordered w/NOB (3) History of delivery, currently : Status: Acute Comment: x1, Desires rpt csec with SM (4) Supervision of high-risk : Status: Acute Qualifiers: Trimester: second trimester Qualified Code(s): O09.92 - Supervision of high risk , unspecified, second trimester Comment: PRR, , LINDA 03/31/25 Girl, Rao PC: Babak, : Max (5) : Status: Acute Qualifiers: Weeks of gestation: 25 weeks Qualified Code(s): Z3A.25 - 25 weeks gestation of Comment: Discussed genetic/carrier testing - prior carrier done. [place] low risk- female. unremarkable anatomy, consistent dates Orders: Orders CBC W/Diff, Automated Today O09.92 - Supervision of high risk , unspecified, second trimester, Z3A.25 - 25 weeks gestation of Glucose Challenge Gest 1H 50g Today Z13.1 - Encounter for screening for diabetes mellitus Syphilis Antibodies Today O09.92 - Supervision of high risk , unspecified, second trimester, Z3A.25 - 25 weeks gestation of HIV Today Plan Details Additional Comments: ACOG trimester education reviewed and updated. see problem list details for updated plan management information and see below for orders placed at this visit. GA appropriate handout given. 12/20/24 0851 <Electronically signed by Dariana valentine CNM> Date _ Dariana Eli CNM Cosigner Signature: Date (if applicable) CC: ~ [facility][1] Services Work Phone: Reason for referral (narrative)No reason for referral information availableWPremier Health [facility] Work Phone: Summary Purpose Family History No Family History Records FoundNo Family History Records FoundNo Family History Records FoundNo Family History Records Found Advance Directives Advance Directive Response Recorded Date/ Time Living Will No November 04, 2021 8 :31pm Power of Manager Inventory Management No November 04, 2021 8:31pm Advance Directive Response Recorded Date/ Time Living Will No April 14 4:25pm Power of Manager Inventory Management No April 14, 2022 4:25pm Advance Directive Response Recorded Date/ Time Living Will No August 15 024 5:50pm Power of Manager Inventory Management No August 15, 2023 5:50pm Advance Directive Response Recorded Date/ Time Living Will No August 30, 2024 12:39am Power of Manager Inventory Management No August 30 12:39am Living Will No June 16, 024 8:48pm Power of Manager Inventory Management No June 16, 2024 8:48pm Advance Directive Response Recorded Date/ Time Living Will No August 30, 2024 1:39am Power of Manager Inventory Management No August 30 1:39am Living Will No June 16 024 9:48pm Power of Manager Inventory Management No June 16, 2024 9:48pm Advance Directive Response Recorded Date/ Time Living Will No August 30, 2024 1:39am Do you have a Healthcare Power of Manager Inventory Management? No August 30, 2024 1:39am Living Will No June 16, 9:48pm Do you have a Healthcare Power of Manager Inventory Management? No June 16, 2024 9:48pm Advance Directive Response Recorded Date/ Time Living Will No August 30, 2024 1:39am Do you have a Healthcare Power of Manager Inventory Management? No August 30, 2024 1:39am Do you have a Healthcare Power of Manager Inventory Management? No October 25, 2024 7:30pm Advance Directive Response Recorded Date/ Time Do you have a Healthcare Power of Manager Inventory Management? 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 affecting Supervision of normal UTI in Vaginal bleeding affecting early Obesity affecting Supervision of normal Medium chain acyl CoA dehydrogenase deficiency Obesity affecting Supervision of normal UTI in Vaginal bleeding affecting early Medium chain acyl CoA dehydrogenase deficiency Obesity affecting Supervision of normal UTI in Medium chain acyl CoA dehydrogenase deficiency Obesity affecting Supervision of normal UTI in Medium chain acyl CoA dehydrogenase deficiency Obesity affecting Supervision of normal UTI in Medium chain acyl CoA dehydrogenase deficiency Obesity affecting Supervision of normal UTI in Chief Complaint 24WK OB 28 WK OB/GLUCOSE 30 WK OB 32 WK OB 34 WK OB 34 weeks gestation of 36 WK OB / NST 37 WK OB / NST RULE OUT LABOR RULE OUT LABOR 38 WK OB / NST 39 WK OB / NST PRIMARY INDUCTION INDUCTION INDUCTION PRIMARY PRIMARY Reason for Visit 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 affecting Supervision of normal UTI in Vaginal bleeding affecting early Obesity affecting Supervision of normal Medium chain acyl CoA dehydrogenase deficiency Obesity affecting Supervision of normal UTI in Vaginal bleeding affecting early Medium chain acyl CoA dehydrogenase deficiency Obesity affecting Supervision of normal UTI in Medium chain acyl CoA dehydrogenase deficiency Obesity affecting Supervision of normal UTI in Medium chain acyl CoA dehydrogenase deficiency Obesity affecting Supervision of normal UTI in Medium chain acyl CoA dehydrogenase deficiency Obesity affecting Supervision of normal UTI in False labor after 37 completed weeks of gestation Medium chain acyl CoA dehydrogenase deficiency Obesity affecting Supervision of normal UTI in Medium chain acyl CoA dehydrogenase deficiency Obesity affecting Supervision of normal UTI in Medium chain acyl CoA dehydrogenase deficiency Obesity affecting Supervision of normal UTI in Arrest of dilation, delivered, current hospitalization delivery delivered Chorioamnionitis False labor after 37 completed weeks of gestation Medium chain acyl CoA dehydrogenase deficiency Obesity affecting Supervision of normal UTI in Chief Complaint 6wk pp VAG BLEEDING Reason for Visit delivery de livered care and examination Chief Complaint RASH Chief Complaint Admit Date lac June 16, 2024 8:26pm Amb Documentation August 09, 2024 9:04am New OB, LMP 12, LINDA 03/31/25August 11:05am l groin pain,9 weeks August 30, 2024 12:38am Reason for Visit Admit Date Family history of autism August 29, 2024 11:05am History of delivery, currently August 29, 2024 11:05am Obesity affecting August 29 11:05am August 29, 2024 11:0 5am Supervision of high-risk August 29, 2024 11:05am Chief Complaint Admit Date lac June 16, 2024 8:26pm Amb Documentation August 09, 2024 9:04am New OB, LMP 12, LINDA 03/31/25August 11:05am l groin pain,9 weeks August 30, 2024 12:38am ER F/U SEE WORKLOAD MESSAGE September 04, 2024 10:51am Reason for Visit Admit Date Family history of autism August 29, 2024 11:05am History of delivery, currently August 29, 2024 11:05am Obesity affecting August 29 11:05am August 29, 2024 11:0 5am Supervision of high-risk August 29, 2024 11:05am Family history of autism September 04 10:51am History of delivery, currently September 04, 2024 10:51am Obesity affecting September 04, 2024 10:51am September 04, 2024 10: 51am Supervision of high-risk September 04, 2024 10:51am Pelvic pain affecting pregna ncy in first trimester, antepartum September 04, 2024 10:51am Chief Complaint Admit Date lac June 16, 2024 8:26pm Amb Documentation August 09, 2024 9:04am New OB, LMP 06/24, LINDA 03/31/25August 11:05am l groin pain,9 weeks August 30, 2024 12:38am ER F/U SEE WORKLOAD MESSAGE September 04, 2024 10:51am 13wk OB September 26, 2024 1:43 pm Reason for Visit Admit Date Family history of autism August 29, 2024 11:05am History of delivery, currently August 29, 2024 11:05am Obesity affecting August 29 11:05am August 29, 2024 11:0 5am Supervision of high-risk August 29, 2024 11:05am Family history of autism September 04 10:51am History of delivery, currently September 04, 2024 10:51am Obesity affecting September 04, 2024 10:51am September 04, 2024 10: 51am Supervision of high-risk September 04, 2024 10:51am Pelvic pain affecting pregna ncy in first trimester, antepartum September 04, 2024 10:51am Family history of autism September 26, 2024 1:43pm History of delivery, currently September 26, 2024 1:43pm Obesity affecting September 26 025 1:43pm September 26, 2024 1:43 pm Supervision of high-risk September 26, 2024 1:43pm Chief Complaint Admit Date Amb Documentation August 09, 2024 9:04am New OB, LMP 06/24, LINDA 03/31/25August 11:05am l groin pain,9 weeks August 30, 2024 12:38am ER F/U SEE WORKLOAD MESSAGE September 04, 2024 10:51am 13wk OB September 26, 2024 1:43 pm 17 wk ob October 21, 2024 8:3 6am NAUSEA October 25, 2024 6:54pm Supervision of high risk , unsp ecified, u November 12, 2024 12:01pm Reason for Visit Admit Date Family history of autism August 29, 2024 11:05am History of delivery, currently August 29, 2024 11:05am Obesity affecting August 29 025 11:05am August 29, 2024 11:0 5am Supervision of high-risk August 29, 2024 11:05am Family history of autism September 04 10:51am History of delivery, currently September 04, 2024 10:51am Obesity affecting September 04, 2024 10:51am September 04, 2024 10: 51am Supervision of high-risk September 04, 2024 10:51am Pelvic pain affecting pregna ncy in first trimester, antepartum September 04, 2024 10:51am Family history of autism September 26, 2024 1:43pm History of delivery, currently September 26, 2024 1:43pm Obesity affecting September 26 1:43pm September 26, 2024 1:43 pm Supervision of high-risk September 26, 2024 1:43pm Family history of autism October 21 8:36am History of delivery, currently October 21, 2024 8:36am Obesity affecting October 21, 2024 8:36am October 21, 2024 8:3 6am Supervision of high-risk October 21, 2024 8:36am Chief Complaint Admit Date Amb Documentation August 09, 2024 9:04am New OB, LMP 06/24, LINDA 03/31/25August 11:05am l groin pain,9 weeks August 30, 2024 12:38am ER F/U SEE WORKLOAD MESSAGE September 04, 2024 10:51am 13wk OB September 26, 2024 1:43 pm 17 wk ob October 21, 2024 8:3 6am NAUSEA October 25, 2024 6:54pm Supervision of high risk , unsp ecified, u November 12, 2024 12:01pm 21wk ob November 21, 2024 10:26 am Reason for Visit Admit Date Family history of autism August 29, 2024 11:05am History of delivery, currently August 29, 2024 11:05am Obesity affecting March 6th, 2 025 11:05am August 29, 2024 11:0 5am Supervision of high-risk August 29, 2024 11:05am Family history of autism September 04 10:51am History of delivery, currently September 04, 2024 10:51am Obesity affecting September 04, 2024 10:51am September 04, 2024 10: 51am Supervision of high-risk September 04, 2024 10:51am Pelvic pain affecting pregna ncy in first trimester, antepartum September 04, 2024 10:51am Family history of autism September 26, 2024 1:43pm History of delivery, currently September 26, 2024 1:43pm Obesity affecting September 26 1:43pm September 26, 2024 1:43 pm Supervision of high-risk September 26, 2024 1:43pm Family history of autism October 21 8:36am History of delivery, currently October 21, 2024 8:36am Obesity affecting October 21, 2024 8:36am October 21, 2024 8:3 6am Supervision of high-risk October 21, 2024 8:36am Family history of autism November 21, 2024 10:26am History of delivery, currently November 21, 2024 10:26am Obesity affecting November 21 10:26am November 21, 2024 10:26 am Supervision of high-risk October 252024 10:26am Chief Complaint Admit Date New OB, LMP 06/24, LINDA 03/31/25August 11:05am l groin pain,9 weeks August 30, 2024 12:38am ER F/U SEE WORKLOAD MESSAGE September 04, 2024 10:51am 13wk OB September 26, 2024 1:43 pm 17 wk ob October 21, 2024 8:3 6am NAUSEA October 25, 2024 6:54pm Supervision of high risk , unsp ecified, u November 12, 2024 12:01pm 21wk ob November 21, 2024 10:26 am 25wk ob December 20, 2024 8:28 am Reason for Visit Admit Date Family history of autism August 29, 2024 11:05am History of delivery, currently August 29, 2024 11:05am Obesity affecting August 29, 2 025 11:05am August 29, 2024 11:0 5am Supervision of high-risk August 29, 2024 11:05am Family history of autism September 04 10:51am History of delivery, currently September 04, 2024 10:51am Obesity affecting September 04, 2024 10:51am September 04, 2024 10: 51am Supervision of high-risk September 04, 2024 10:51am Pelvic pain affecting pregna ncy in first trimester, antepartum September 04, 2024 10:51am Family history of autism September 26, 2024 1:43pm History of delivery, currently September 26, 2024 1:43pm Obesity affecting September 26 1:43pm September 26, 2024 1:43 pm Supervision of high-risk September 26, 2024 1:43pm Family history of autism October 21 8:36am History of delivery, currently October 21, 2024 8:36am Obesity affecting October 21, 2024 8:36am October 21, 2024 8:3 6am Supervision of high-risk October 21, 2024 8:36am Family history of autism November 21, 2024 10:26am History of delivery, currently November 21, 2024 10:26am Obesity affecting November 21 10:26am November 21, 2024 10:26 am Supervision of high-risk October 252024 10:26am Family history of autism December 20, 2024 8:28am History of delivery, currently December 20, 2024 8:28am Obesity affecting December 20 8:28am December 20, 2024 8:28 am Supervision of high-risk December 20, 2024 8:28am Chief Complaint Admit Date New OB, LMP 06/24, LINDA 03/31/25August 11:05am l groin pain,9 weeks August 30, 2024 12:38am ER F/U SEE WORKLOAD MESSAGE September 04, 2024 10:51am 13wk OB September 26, 2024 1:43 pm 17 wk ob October 21, 2024 8:3 6am NAUSEA October 25, 2024 6:54pm Supervision of high risk , unsp ecified, u November 12, 2024 12:01pm wk ob November 21, 2024 10:26 am 25wk ob December 20, 2024 8:28 am OB, pelvic pain December 25, 2024 8:55a m Reason for Visit Admit Date Family history of autism August 29, 2024 11:05am History of delivery, currently August 29, 2024 11:05am Obesity affecting August 29 11:05am August 29, 2024 11:0 5am Supervision of high-risk August 29, 2024 11:05am Family history of autism September 04 10:51am History of delivery, currently September 04, 2024 10:51am Obesity affecting September 04, 2024 10:51am September 04, 2024 10: 51am Supervision of high-risk September 04, 2024 10:51am Pelvic pain affecting pregna ncy in first trimester, antepartum September 04, 2024 10:51am Family history of autism September 26, 2024 1:43pm History of delivery, currently September 26, 2024 1:43pm Obesity affecting September 26 1:43pm September 26, 2024 1:43 pm Supervision of high-risk September 26, 2024 1:43pm Family history of autism October 21 8:36am History of delivery, currently October 21, 2024 8:36am Obesity affecting October 21, 2024 8:36am October 21, 2024 8:3 6am Supervision of high-risk October 21, 2024 8:36am Family history of autism November 21, 2024 10:26am History of delivery, currently November 21, 2024 10:26am Obesity affecting November 21 10:26am November 21, 2024 10:26 am Supervision of high-risk October 252024 10:26am Family history of autism December 20, 2024 8:28am History of delivery, currently December 20, 2024 8:28am Obesity affecting December 20 8:28am December 20, 2024 8:28 am Supervision of high-risk December 20, 2024 8:28am Family history of autism December 25, 2024 8:55am History of delivery, currently December 25, 2024 8:55am Obesity affecting December 25 8:55am December 25, 2024 8:55a m Supervision of high-risk December 25, 2024 8:55am Chief Complaint Admit Date New OB, LMP 06/24, LINDA 03/31/25August 11:05am l groin pain,9 weeks August 30, 2024 12:38am ER F/U SEE WORKLOAD MESSAGE September 04, 2024 10:51am 13wk OB September 26, 2024 1:43 pm 17 wk ob October 21, 2024 8:3 6am NAUSEA October 25, 2024 6:54pm Supervision of high risk , unsp ecified, u November 12, 2024 12:01pm 21wk ob November 21, 2024 10:26 am 25wk ob December 20, 2024 8:28 am OB, pelvic pain December 25, 2024 8:55a m R/O ABDOMINAL PAIN December 25, 2024 9:30a m Reason for Visit Admit Date Family history of autism August 29, 2024 11:05am History of delivery, currently August 29, 2024 11:05am Obesity affecting August 29 11:05am August 29, 2024 11:0 5am Supervision of high-risk August 29, 2024 11:05am Family history of autism September 04 10:51am History of delivery, currently September 04, 2024 10:51am Obesity affecting September 04, 2024 10:51am September 04, 2024 10: 51am Supervision of high-risk September 04, 2024 10:51am Pelvic pain affecting pregna ncy in first trimester, antepartum September 04, 2024 10:51am Family history of autism September 26, 2024 1:43pm History of delivery, currently September 26, 2024 1:43pm Obesity affecting September 26 025 1:43pm September 26, 2024 1:43 pm Supervision of high-risk September 26, 2024 1:43pm Family history of autism October 21 8:36am History of delivery, currently October 21, 2024 8:36am Obesity affecting October 21, 2024 8:36am October 21, 2024 8:3 6am Supervision of high-risk October 21, 2024 8:36am Family history of autism November 21, 2024 10:26am History of delivery, currently November 21, 2024 10:26am Obesity affecting November 21 10:26am November 21, 2024 10:26 am Supervision of high-risk October 252024 10:26am Family history of autism December 20, 2024 8:28am History of delivery, currently December 20, 2024 8:28am Obesity affecting December 20 8:28am December 20, 2024 8:28 am Supervision of high-risk December 20, 2024 8:28am Family history of autism December 25, 2024 8:55am History of delivery, currently December 25, 2024 8:55am Obesity affecting December 25 8:55am Pelvic pain affecting December 8:55am December 25, 2024 8:55a m Supervision of high-risk December 25, 2024 8:55am Chief Complaint Admit Date ER F/U SEE WORKLOAD MESSAGE September 04, 2024 10:51am 13wk OB September 26, 2024 1:43 pm 17 wk ob October 21, 2024 8:3 6am NAUSEA October 25, 2024 6:54pm Supervision of high risk , unsp ecified, u November 12, 2024 12:01pm wk ob November 21, 2024 10:26 am 25wk ob December 20, 2024 8:28 am OB, pelvic pain December 25, 2024 8:55a m R/O ABDOMINAL PAIN December 25, 2024 9:30a m R/O ABDOMINAL PAIN December 25, 2024 8:23p m Reason for Visit Admit Date Family history of autism September 04 10:51am History of delivery, currently September 04, 2024 10:51am Obesity affecting September 04, 2024 10:51am September 04, 2024 10: 51am Supervision of high-risk September 04, 2024 10:51am Pelvic pain affecting pregna ncy in first trimester, antepartum September 04, 2024 10:51am Family history of autism September 26, 2024 1:43pm History of delivery, currently September 26, 2024 1:43pm Obesity affecting September 26 025 1:43pm September 26, 2024 1:43 pm Supervision of high-risk September 26, 2024 1:43pm Family history of autism October 21 8:36am History of delivery, currently October 21, 2024 8:36am Obesity affecting October 21, 2024 8:36am October 21, 2024 8:3 6am Supervision of high-risk October 21, 2024 8:36am Family history of autism November 21, 2024 10:26am History of delivery, currently November 21, 2024 10:26am Obesity affecting November 21 10:26am November 21, 2024 10:26 am Supervision of high-risk October 252024 10:26am Family history of autism December 20, 2024 8:28am History of delivery, currently December 20, 2024 8:28am Obesity affecting December 20 8:28am December 20, 2024 8:28 am Supervision of high-risk December 20, 2024 8:28am Family history of autism December 25, 2024 8:55am History of delivery, currently December 25, 2024 8:55am Obesity affecting December 25 8:55am Pelvic pain affecting December 8:55am December 25, 2024 8:55a m Supervision of high-risk December 25, 2024 8:55am Family history of autism December 25, 2024 9:30am History of delivery, currently December 25, 2024 9:30am Obesity affecting December 25 9:30am Pelvic pain affecting December 9:30am December 25, 2024 9:30a m Supervision of high-risk December 25, 2024 9:30am Chief Complaint Admit Date 13wk OB September 26, 2024 1:43 pm 17 wk ob October 21, 2024 8:3 6am NAUSEA October 25, 2024 6:54pm Supervision of high risk , unsp ecified, u November 12, 2024 12:01pm wk ob November 21, 2024 10:26 am 25wk ob December 20, 2024 8:28 am OB, pelvic pain December 25, 2024 8:55a m R/O ABDOMINAL PAIN December 25, 2024 9:30a m R/O ABDOMINAL PAIN December 25, 2024 8:23p m 28wk ob/glucose January 06, 2025 2:40 pm Reason for Visit Admit Date Family history of autism September 26, 2024 1:43pm History of delivery, currently September 26, 2024 1:43pm Obesity affecting September 26 025 1:43pm September 26, 2024 1:43 pm Supervision of high-risk September 26, 2024 1:43pm Family history of autism October 21 8:36am History of delivery, currently October 21, 2024 8:36am Obesity affecting October 21, 2024 8:36am October 21, 2024 8:3 6am Supervision of high-risk October 21, 2024 8:36am Family history of autism November 21, 2024 10:26am History of delivery, currently November 21, 2024 10:26am Obesity affecting November 21 10:26am November 21, 2024 10:26 am Supervision of high-risk October 252024 10:26am Family history of autism December 20, 2024 8:28am History of delivery, currently December 20, 2024 8:28am Obesity affecting December 20 025 8:28am December 20, 2024 8:28 am Supervision of high-risk December 20, 2024 8:28am Family history of autism December 25, 2024 8:55am History of delivery, currently December 25, 2024 8:55am Obesity affecting December 25 8:55am Pelvic pain affecting December 8:55am December 25, 2024 8:55a m Supervision of high-risk December 25, 2024 8:55am Family history of autism December 25, 2024 9:30am History of delivery, currently December 25, 2024 9:30am Obesity affecting December 25 9:30am Pelvic pain affecting December 9:30am December 25, 2024 9:30a m Supervision of high-risk December 25, 2024 9:30am Family history of autism January 06, 2025 2:40pm History of delivery, currently January 06, 2025 2:40pm Obesity affecting January 06, 2:40pm Pelvic pain affecting December 2:40pm January 06, 2025 2:40 pm Sterilization January 06, 2025 2:40 pm Supervision of high-risk January 06, 2025 2:40pm Additional Source Comments INFORMATION SOURCE (unrecogn ized section and content) DATE CREATED AUTHOR 01/14/2020 [facility] DATE CREATED AUTHOR AUTHOR'S ORGANIZ ATION 12/22/2020 [facility] ([place]) DATE CREATED AUTHOR AUTHOR'S ORGANIZ ATION 04/10/2021 [facility] DATE CREATED AUTHOR AUTHOR'S ORGANIZ ATION 01/03/2025 [facility] Goals (unrecognized section and content) Goals may be documented in a n alternate sectionGoals may be documented in an alternate sectionGoals may be documented in an alternate sectionGoals may be documented in an alternate sectionGoals may be documented in an alternate sectionGoals may be documented in an alternate sectionGoals may be documented in an alternate sectionGoals may be documented in an alternate sectionGoals may be documented in an alternate sectionGoals may be documented in an alternate sectionGoals may be documented in an alternate sectionGoals may be documented in an alternate sectionGoals may be documented in an alternate sectionGoals may be documented in an alternate sectionGoals may be documented in an alternate section Care Teams (unrecognized sec tion and content) Team Status: Active Member Role Status Dates No Primary Care Physician Primary Care Provider Active Team Status: Inactive Member Role Status Dates No Primary Care Physician Primary Care Provider Active Start: August 29, 2024 End: August 29, 2024 No Primary Care Physician Referring Provider Active Start: August 29, 2024 End: August 29, 2024 Shell Curry CNM Attending Provider Active S tart: August 29, 2024 End: August 29, 2024 Team Status: Inactive Member Role Status Dates No Primary Care Physician Primary Care Provider Active Start: August 29, 2024 End: August 29, 2024 Shell Curry CNM Attending Provider Active S tart: August 29, 2024 End: August 29, 2024 Shell Curry CNM Referring Provider Active S tart: August 29, 2024 End: August 29, 2024 Team Status: Inactive Member Role Status Dates No Primary Care Physician Primary Care Provider Active Start: August 30, 2024 End: August 30, 2024 Dr. Christiano Villafuerte MD Attending Provider Active Start: August 30, 2024 End: August 30, 2024 Dr. Christiano Villafuerte MD Emergency Provider Active Start: August 30, 2024 End: August 30, 2024 Team Status: Inactive Member Role Status Dates No Primary Care Physician Primary Care Provider Active Start: September 04, 2024 End: September 04, 2024 No Primary Care Physician Referring Provider Active Start: September 04, 2024 End: September 04, 2024 Dr. Raven Modi DO Attending Provider Activ e Start: September 04, 2024 End: September 04, 2024 Team Status: Inactive Member Role Status Dates No Primary Care Physician Primary Care Provider Active Start: September 26, 2024 End: September 26, 2024 No Primary Care Physician Referring Provider Active Start: September 26, 2024 End: September 26, 2024 Dr. Raven Modi DO Attending Provider Activ e Start: September 26, 2024 End: September 26, 2024 Team Status: Inactive Member Role Status Dates No Primary Care Physician Primary Care Provider Active Start: October 02, 2024 End: October 02, 2024 Dr. Raven Modi DO Attending Provider Activ e Start: October 02, 2024 End: October 02, 2024 Dr. Raven Modi DO Referring Provider Activ e Start: October 02, 2024 End: October 02, 2024 Team Status: Inactive Member Role Status Dates No Primary Care Physician Primary Care Provider Active Start: October 21, 2024 End: October 21, 2024 No Primary Care Physician Referring Provider Active Start: October 21, 2024 End: October 21, 2024 Geneva Wheeler NP, [employer]-C Attending Provider Active Start: October 21, 2024 End: October 21, 2024 Team Status: Inactive Member Role Status Dates No Primary Care Physician Primary Care Provider Active Start: October 25, 2024 End: October 25, 2024 Dr. Heraclio Ornelas DO Attending Provider Active Start: October 25, 2024 End: October 25, 2024 Dr. Heraclio Ornelas DO Emergency Provider Active Start: October 25, 2024 End: October 25, 2024 Team Status: Inactive Member Role Status Dates No Primary Care Physician Primary Care Provider Active Start: November 12, 2024 End: November 12, 2024 Geneva Wheeler ROAST [employer]STER, [employer]-C Attending Provider Active Start: November 12, 2024 End: November 12, 2024 Geneva Wheeler ROAST [employer]STER, [employer]-C Referring Provider Active Start: November 12, 2024 End: November 12, 2024 Team Status: Inactive Member Role Status Dates No Primary Care Physician Primary Care Provider Active Start: November 21, 2024 End: November 21, 2024 No Primary Care Physician Referring Provider Active Start: November 21, 2024 End: November 21, 2024 Dr. Renate Handley MD Attending Provider Active Start: November 21, 2024 End: November 21, 2024 Team Status: Inactive Member Role Status Dates No Primary Care Physician Primary Care Provider Active Start: November 21, 2024 End: November 21, 2024 Dr. Renate Handley MD Attending Provider Active Start: November 21, 2024 End: November 21, 2024 Dr. Renate Handley MD Referring Provider Active Start: November 21, 2024 End: November 21, 2024 Team Status: Inactive Member Role Status Dates No Primary Care Physician Primary Care Provider Active Start: December 20, 2024 End: December 20, 2024 No Primary Care Physician Referring Provider Active Start: December 20, 2024 End: December 20, 2024 Dariana Eli CNM Attending Provider Active Start: December 20, 2024 End: December 20, 2024 Team Status: Active Member Role Status Dates No Primary Care Physician Primary Care Provider Active Start: August 09, 2024 Adri Kimble RN Attending Provider Active St art: August 09, 2024 Team Status: Active Member Role Status Dates Dr. Lukas Westbrook DO Family Provider Active No Primary Care Physician Primary Care Provider Active Team Status: Inactive Member Role Status Dates No Primary Care Physician Primary Care Provider Active Dr. Ousmane Weller , Emergency Provider Active Team Status: Inactive Member Role Status Dates No Primary Care Physician Primary Care Provider Active Start: June 16, 2024 End: June 16, 2024 Dr. Franco Ortiz DO Attending Provider Active Start: June 16, 2024 End: June 16, 2024 Dr. Franco Ortiz DO Emergency Provider Active Start: June 16, 2024 End: June 16, 2024 Team Status: Active Member Role Status Dates No Primary Care Physician Primary Care Provider Active Start: August 29, 2024 Shell Curry CNM Attending Provider Active S tart: August 29, 2024 Shell Curry CNM Referring Provider Active S tart: August 29, 2024 Team Status: Inactive Member Role Status Dates No Primary Care Physician Primary Care Provider Active Start: August 30, 2024 End: August 30, 2024 Dr. Christiano Villafuerte MD Emergency Provider Active Start: August 30, 2024 End: August 30, 2024 Team Status: Active Member Role/Relationship Status Dates No Primary Care Physician Primary Care Provider Active Team Status: Inactive Member Role/Relationship Status Dates No Primary Care Physician Primary Care Provider Active Start: August 29, 2024 End: August 29, 2024 No Primary Care Physician Referring Provider Active Start: August 29, 2024 End: August 29, 2024 Shell Curry CNM Attending Provider Active S tart: August 29, 2024 End: August 29, 2024 Team Status: Inactive Member Role/Relationship Status Dates No Primary Care Physician Primary Care Provider Active Start: August 29, 2024 End: August 29, 2024 Shell Curry CNM Attending Provider Active S tart: August 29, 2024 End: August 29, 2024 Shell Curry CNM Referring Provider Active S tart: August 29, 2024 End: August 29, 2024 Team Status: Inactive Member Role/Relationship Status Dates No Primary Care Physician Primary Care Provider Active Start: August 30, 2024 End: August 30, 2024 Dr. Christiano Villafuerte MD Attending Provider Active Start: August 30, 2024 End: August 30, 2024 Dr. Christiano Villafuerte MD Emergency Provider Active Start: August 30, 2024 End: August 30, 2024 Team Status: Inactive Member Role/Relationship Status Dates No Primary Care Physician Primary Care Provider Active Start: September 04, 2024 End: September 04, 2024 No Primary Care Physician Referring Provider Active Start: September 04, 2024 End: September 04, 2024 Dr. Raven Modi DO Attending Provider Activ e Start: September 04, 2024 End: September 04, 2024 Team Status: Inactive Member Role/Relationship Status Dates No Primary Care Physician Primary Care Provider Active Start: September 26, 2024 End: September 26, 2024 No Primary Care Physician Referring Provider Active Start: September 26, 2024 End: September 26, 2024 Dr. Raven Modi DO Attending Provider Activ e Start: September 26, 2024 End: September 26, 2024 Team Status: Inactive Member Role/Relationship Status Dates No Primary Care Physician Primary Care Provider Active Start: October 02, 2024 End: October 02, 2024 Dr. Raven Modi DO Attending Provider Activ e Start: October 02, 2024 End: October 02, 2024 Dr. Raven Modi DO Referring Provider Activ e Start: October 02, 2024 End: October 02, 2024 Team Status: Inactive Member Role/Relationship Status Dates No Primary Care Physician Primary Care Provider Active Start: October 21, 2024 End: October 21, 2024 No Primary Care Physician Referring Provider Active Start: October 21, 2024 End: October 21, 2024 Geneva Wheeler ROAST [employer]STER, [employer]-C Attending Provider Active Start: October 21, 2024 End: October 21, 2024 Team Status: Inactive Member Role/Relationship Status Dates No Primary Care Physician Primary Care Provider Active Start: October 25, 2024 End: October 25, 2024 Dr. Heraclio Ornelas DO Attending Provider Active Start: October 25, 2024 End: October 25, 2024 Dr. Heraclio Ornelas , Emergency Provider Active Start: October 25, 2024 End: October 25, 2024 Team Status: Inactive Member Role/Relationship Status Dates No Primary Care Physician Primary Care Provider Active Start: November 12, 2024 End: November 12, 2024 Geneva Wheeler ROAST MASTER, ROAST [employer]STER-C Attending Provider Active Start: November 12, 2024 End: November 12, 2024 Geneva Wheeler ROAST MASTER, ROAST [employer]STER-C Referring Provider Active Start: November 12, 2024 End: November 12, 2024 Team Status: Inactive Member Role/Relationship Status Dates No Primary Care Physician Primary Care Provider Active Start: November 21, 2024 End: November 21, 2024 No Primary Care Physician Referring Provider Active Start: November 21, 2024 End: November 21, 2024 Dr. Renate Handley MD Attending Provider Active Start: November 21, 2024 End: November 21, 2024 Team Status: Inactive Member Role/Relationship Status Dates No Primary Care Physician Primary Care Provider Active Start: November 21, 2024 End: November 21, 2024 Dr. Renate Handley MD Attending Provider Active Start: November 21, 2024 End: November 21, 2024 Dr. Renate Handley MD Referring Provider Active Start: November 21, 2024 End: November 21, 2024 Team Status: Inactive Member Role/Relationship Status Dates No Primary Care Physician Primary Care Provider Active Start: December 20, 2024 End: December 20, 2024 No Primary Care Physician Referring Provider Active Start: December 20, 2024 End: December 20, 2024 Dariana Eli CNM Attending Provider Active Start: December 20, 2024 End: December 20, 2024 Team Status: Inactive Member Role/Relationship Status Dates No Primary Care Physician Primary Care Provider Active Start: December 25, 2024 End: December 25, 2024 No Primary Care Physician Referring Provider Active Start: December 25, 2024 End: December 25, 2024 Dr. Raven Modi DO Attending Provider Activ e Start: December 25, 2024 End: December 25, 2024 Team Status: Inactive Member Role/Relationship Status Dates No Primary Care Physician Primary Care Provider Active Start: December 25, 2024 End: December 25, 2024 Dr. Raven Modi DO Attending Provider Activ e Start: December 25, 2024 End: December 25, 2024 Dr. Raven Modi DO Referring Provider Activ e Start: December 25, 2024 End: December 25, 2024 Team Status: Active Member Role/Relationship Status Dates No Primary Care Physician Primary Care Provider Active Start: December 25, 2024 Dr. Raven Modi DO Attending Provider Activ e Start: December 25, 2024 Team Status: Inactive Member Role/Relationship Status Dates No Primary Care Physician Primary Care Provider Active Start: September 04, 2024 End: September 04, 2024 No Primary Care Physician Referring Provider Active Start: September 04, 2024 End: September 04, 2024 Dr. Raven Modi DO Attending Provider Activ e Start: September 04, 2024 End: September 04, 2024 Team Status: Inactive Member Role/Relationship Status Dates No Primary Care Physician Primary Care Provider Active Start: September 26, 2024 End: September 26, 2024 No Primary Care Physician Referring Provider Active Start: September 26, 2024 End: September 26, 2024 Dr. Raven Modi DO Attending Provider Activ e Start: September 26, 2024 End: September 26, 2024 Team Status: Inactive Member Role/Relationship Status Dates No Primary Care Physician Primary Care Provider Active Start: October 02, 2024 End: October 02, 2024 Dr. Raven Modi DO Attending Provider Activ e Start: October 02, 2024 End: October 02, 2024 Dr. Raven Modi DO Referring Provider Activ e Start: October 02, 2024 End: October 02, 2024 Team Status: Inactive Member Role/Relationship Status Dates No Primary Care Physician Primary Care Provider Active Start: October 21, 2024 End: October 21, 2024 No Primary Care Physician Referring Provider Active Start: October 21, 2024 End: October 21, 2024 Geneva Wheeler ROAST MASTER, ROAST MASTER-C Attending Provider Active Start: October 21, 2024 End: October 21, 2024 Team Status: Inactive Member Role/Relationship Status Dates No Primary Care Physician Primary Care Provider Active Start: October 25, 2024 End: October 25, 2024 Dr. Heraclio Ornelas DO Attending Provider Active Start: October 25, 2024 End: October 25, 2024 Dr. Heraclio Ornelas DO Emergency Provider Active Start: October 25, 2024 End: October 25, 2024 Team Status: Inactive Member Role/Relationship Status Dates No Primary Care Physician Primary Care Provider Active Start: November 12, 2024 End: November 12, 2024 Geneva Wheeler ROAST MASTER, ROAST MASTER-C Attending Provider Active Start: November 12, 2024 End: November 12, 2024 Geneva Wheeler ROAST MASTER, ROAST MASTER-C Referring Provider Active Start: November 12, 2024 End: November 12, 2024 Team Status: Inactive Member Role/Relationship Status Dates No Primary Care Physician Primary Care Provider Active Start: November 21, 2024 End: November 21, 2024 No Primary Care Physician Referring Provider Active Start: November 21, 2024 End: November 21, 2024 Dr. Renate Handley MD Attending Provider Active Start: November 21, 2024 End: November 21, 2024 Team Status: Inactive Member Role/Relationship Status Dates No Primary Care Physician Primary Care Provider Active Start: November 21, 2024 End: November 21, 2024 Dr. Renate Handley MD Attending Provider Active Start: November 21, 2024 End: November 21, 2024 Dr. Renate Handley MD Referring Provider Active Start: November 21, 2024 End: November 21, 2024 Team Status: Inactive Member Role/Relationship Status Dates No Primary Care Physician Primary Care Provider Active Start: December 20, 2024 End: December 20, 2024 No Primary Care Physician Referring Provider Active Start: December 20, 2024 End: December 20, 2024 Dariana Eli CNM Attending Provider Active Start: December 20, 2024 End: December 20, 2024 Team Status: Inactive Member Role/Relationship Status Dates No Primary Care Physician Primary Care Provider Active Start: December 25, 2024 End: December 25, 2024 No Primary Care Physician Referring Provider Active Start: December 25, 2024 End: December 25, 2024 Dr. Raven Modi DO Attending Provider Activ e Start: December 25, 2024 End: December 25, 2024 Team Status: Inactive Member Role/Relationship Status Dates No Primary Care Physician Primary Care Provider Active Start: December 25, 2024 End: December 25, 2024 Dr. Raven Modi DO Attending Provider Activ e Start: December 25, 2024 End: December 25, 2024 Dr. Raven Modi DO Referring Provider Activ e Start: December 25, 2024 End: December 25, 2024 Team Status: Inactive Member Role/Relationship Status Dates No Primary Care Physician Primary Care Provider Active Start: December 25, 2024 End: December 25, 2024 Dr. Raven Modi DO Attending Provider Activ e Start: December 25, 2024 End: December 25, 2024 Team Status: Active Member Role/Relationship Status Dates No Primary Care Physician Primary Care Provider Active Start: December 25, 2024 Dr. Raven Modi , Attending Provider Activ e Start: December 25, 2024 Dr. Raven Modi , DO Referring Provider Activ e Start: December 25, 2024 Dr. Raven Modi , Other Provider Active Start: December 25, 2024 Team Status: Inactive Member Role/Relationship Status Dates No Primary Care Physician Primary Care Provider Active Start: September 26, 2024 End: September 26, 2024 No Primary Care Physician Referring Provider Active Start: September 26, 2024 End: September 26, 2024 Dr. Raven Modi , DO Attending Provider Activ e Start: September 26, 2024 End: September 26, 2024 Team Status: Inactive Member Role/Relationship Status Dates No Primary Care Physician Primary Care Provider Active Start: October 02, 2024 End: October 02, 2024 Dr. Raven Modi , DO Attending Provider Activ e Start: October 02, 2024 End: October 02, 2024 Dr. Raven Modi DO Referring Provider Activ e Start: October 02, 2024 End: October 02, 2024 Team Status: Inactive Member Role/Relationship Status Dates No Primary Care Physician Primary Care Provider Active Start: October 21, 2024 End: October 21, 2024 No Primary Care Physician Referring Provider Active Start: October 21, 2024 End: October 21, 2024 Geneva Wheeler ROAST MASTER, ROAST MASTER-C Attending Provider Active Start: October 21, 2024 End: October 21, 2024 Team Status: Inactive Member Role/Relationship Status Dates No Primary Care Physician Primary Care Provider Active Start: October 25, 2024 End: October 25, 2024 Dr. Heraclio Ornelas , Attending Provider Active Start: October 25, 2024 End: October 25, 2024 Dr. Heraclio Ornelas , Emergency Provider Active Start: October 25, 2024 End: October 25, 2024 Team Status: Inactive Member Role/Relationship Status Dates No Primary Care Physician Primary Care Provider Active Start: November 12, 2024 End: November 12, 2024 Geneva Wheeler ROAST MASTER, ROAST MASTER-C Attending Provider Active Start: November 12, 2024 End: November 12, 2024 Geneva Wheeler ROAST MASTER, ROAST MASTER-C Referring Provider Active Start: November 12, 2024 End: November 12, 2024 Team Status: Inactive Member Role/Relationship Status Dates No Primary Care Physician Primary Care Provider Active Start: November 21, 2024 End: November 21, 2024 No Primary Care Physician Referring Provider Active Start: November 21, 2024 End: November 21, 2024 Dr. Renate Handley MD Attending Provider Active Start: November 21, 2024 End: November 21, 2024 Team Status: Inactive Member Role/Relationship Status Dates No Primary Care Physician Primary Care Provider Active Start: November 21, 2024 End: November 21, 2024 Dr. Renate Handley MD Attending Provider Active Start: November 21, 2024 End: November 21, 2024 Dr. Renate Handley MD Referring Provider Active Start: November 21, 2024 End: November 21, 2024 Team Status: Inactive Member Role/Relationship Status Dates No Primary Care Physician Primary Care Provider Active Start: December 20, 2024 End: December 20, 2024 No Primary Care Physician Referring Provider Active Start: December 20, 2024 End: December 20, 2024 Dariana Eli CNM Attending Provider Active Start: December 20, 2024 End: December 20, 2024 Team Status: Inactive Member Role/Relationship Status Dates No Primary Care Physician Primary Care Provider Active Start: December 25, 2024 End: December 25, 2024 No Primary Care Physician Referring Provider Active Start: December 25, 2024 End: December 25, 2024 Dr. Raven Modi DO Attending Provider Activ e Start: December 25, 2024 End: December 25, 2024 Team Status: Inactive Member Role/Relationship Status Dates No Primary Care Physician Primary Care Provider Active Start: December 25, 2024 End: December 25, 2024 Dr. Raven Modi DO Attending Provider Activ e Start: December 25, 2024 End: December 25, 2024 Dr. Raven Modi DO Referring Provider Activ e Start: December 25, 2024 End: December 25, 2024 Team Status: Inactive Member Role/Relationship Status Dates No Primary Care Physician Primary Care Provider Active Start: December 25, 2024 End: December 25, 2024 Dr. Raven Modi DO Attending Provider Activ e Start: December 25, 2024 End: December 25, 2024 Team Status: Active Member Role/Relationship Status Dates No Primary Care Physician Primary Care Provider Active Start: December 25, 2024 Dr. Raven Modi , DO Attending Provider Activ e Start: December 25, 2024 Dr. Raven Modi , DO Referring Provider Activ e Start: December 25, 2024 Dr. Raven Modi , DO Other Provider Active Start: December 25, 2024 Team Status: Inactive Member Role/Relationship Status Dates No Primary Care Physician Primary Care Provider Active Start: January 06, 2025 End: January 06, 2025 No Primary Care Physician Referring Provider Active Start: January 06, 2025 End: January 06, 2025 Dr. Renate Handley MD Attending Provider Active Start: January 06, 2025 End: January 06, 2025 Team Status: Active Member Role/Relationship Status Dates No Primary Care Physician Primary Care Provider Active Start: January 06, 2025 Geneva Wheeler NP, ROAST MASTER-C Attending Provider Active Start: January 06, 2025 FOR RECORDS PERTAINING TO PATIENTS WHO ARE OR HAVE BEEN ENROLLED IN A CHEMICAL DEPENDENCY/SUBSTANCEABUSE PROGRAM, SOME INFORMATION MAY BE OMITTED. This clinical summary was aggregated from multiple sources. Caution should be exercised in using it in the provision of clinical care. This summary normalizes information from multiple sources, and as a consequence, information in this document may materially change the coding, format and clinical context of patient data. In addition, data may be omitted in some cases. CLINICAL DECISIONS SHOULD BE BASED ON THE PRIMARY CLINICAL RECORDS. [employer] [facility]. provides no warranty or guarantee of the accuracy or completeness of information in this document.
== END | disposition home or self-care (01) ==
PROVIDERS: Registered Nurse; Visit Provider Nurse Practitioner Women's Health
DX: O09.92 Supervision of high risk pregnancy, unspecified, second trimester (principal); Z3A.25 25 weeks gestation of pregnancy; Z13.1 Encounter for screening for diabetes mellitus
CPT/HCPCS: 36415; 82950; 85025; 86703; 86780

== ENCOUNTER → 2025-02-07 | Outpatient (CLI) | payer MEDICAID, SELFPAY ==
--- NOTE | 2025-02-07 13:01 | US_ITS ---
PROCEDURE: OB LIMITED WITH BIOMETRICS N/A REASON FOR EXAM: FETA GROWTH TECHNIQUE: OB LIMITED WITH BIOMETRICS COMPARISON: November 12, 2024. FINDINGS Number: 1 Position: Vertex Placental Position: Anterior and not low-lying. Placental Abnormalities: No evidence of previa. DIMENSIONS: Biparietal Diameter: 8.12 cm: 32 weeks and 4 days: 44 percentile/ Head Circumference: 30.85 cm: 34 weeks and 3 days: 63rd percentile/ Abdominal Circumference: 27.76 cm: 31 weeks and 6 days: 28 percentile/ Femur Length: 6.41 cm: 33 weeks and 1 day: 52nd percentile/ ESTIMATED WEIGHT: 1974 g plus/-296 g ESTIMATED WEIGHT PERCENTILE (24+ weeks): 36 ESTIMATED GESTATIONAL AGE: Baseline: 32 weeks and 4 days By Ultrasound: 33 weeks and 4 days ESTIMATED DATE OF DELIVERY: Baseline: March 31, 2025 By Ultrasound: March 24, 2025 BIOPHYSICAL ASSESSMENT: Amniotic Fluid Volume: 5.1 cm Amniotic Fluid Index: 14.9 (8-24 cm normal range) Cardiac Motion: 130 beats per minute (average) Trunk and Limb Motion: Present. US/OB Limited With Biometrics IMPRESSION: Single live intrauterine gestation with a mean gestational age of 32 weeks. Th e measurements obtained today fall within normal expected range. Reading Location: [place] [id number]
== END | disposition home or self-care (01) ==
LOC: US 13:00
PROVIDERS: Referring Provider Obstetrics & Gynecology; Visit Provider Obstetrics & Gynecology
DX: O99.212 Obesity complicating pregnancy, second trimester (principal); Z3A.00 Weeks of gestation of pregnancy not specified
CPT/HCPCS: 76816

== ENCOUNTER 2025-02-13 11:24 | Outpatient (CLI) | payer MEDICAID, SELFPAY ==
[2025-02-13 11:44] VITALS: BMI 38.7
[2025-02-13 11:57] VITALS: BP 119/60; PULSE 85; RESP 16; TEMP 36.6
[2025-02-13 11:59] VITALS: PULSE 86; O2SAT 96
--- NOTE | 2025-02-13 13:42 | OB.TRI.PN ---
Progress Notes Date of Service: 02/13/25 Progress Note: Patient presents for triage evaluation secondary to false labor FHT: 140q 3-5 Moderate variability reactive no decelerations category I tracing [place]: occasional Contractions Assessment and plan: 33 week threatened labor no cervical dilation Reactive NST, reassuring maternal and status patient discharged to home to follow-up as scheudled. See problem list details for additional plan information. Charges/Coding Procedures Urinary/Genital [id number]: [id number] non-stress test Interp
[2025-02-13 14:10] LABS: Mucous, Urine 0 SEEN /hpf (<or=2+)
[2025-02-13 14:47] LABS: Glucose, Dipstick Normal (Normal); Ketone-Dipstick Negative (Negative); Leukocyte Esterase-Dipstick Negative /ul (Negative); Nitrite-Dipstick Negative (Negative); Occult Blood-Urine Negative /ul (Negative); Protein-Dipstick 15 mg/dl (Negative); Specific Gravity, Urine 1.015 (1.002-1.030); Urine Bilirubin Dipstick Negative (Negative)
[2025-02-13 14:49] LABS: Color, Urine Straw (Yellow)
[2025-02-13 17:16] LABS: Red Blood Cells-Urine 0-5 SEEN /hpf (0-5); Squamous Epithelial Cells - UA 0-5 SEEN /hpf (5-10); Transitional Epithelial - Ur 0-5 SEEN /hpf (0-5)
== END 2025-02-13 14:14 | disposition home or self-care (01) ==
LOC: WPOUT 11:30 → WP 11:47
PROVIDERS: Referring Provider Obstetrics & Gynecology; Visit Provider Obstetrics & Gynecology
DX: O47.03 False labor before 37 completed weeks of gestation, third trimester (principal); Z87.891 Personal history of nicotine dependence; Z3A.33 33 weeks gestation of pregnancy
CPT/HCPCS: 59025; 59050; 81001; 87077; 87086; 87088; 87186; 99221; G0378

== ENCOUNTER 2025-03-03 14:58 | Outpatient (CLI) | payer MEDICAID, SELFPAY ==
[2025-03-03 15:06] VITALS: BMI 37.5
--- NOTE | 2025-03-03 15:07 | US_ITS ---
PROCEDURE: OB BIOPHYSICAL PROF W/O NST 03/03/2025 REASON FOR EXAM: NONREACTIVE NST TECHNIQUE: Procedure Code: [id number] Modality: US Procedure: OB BIOPHYSICAL PROF W/O NST COMPARISON: None FINDINGS Biophysical score of 8/8. Cephalic position. Amniotic fluid is within normal limits. Largest fluid pocket is 7 cm. ALONDRA of 17.4 cm. heart rate of 137 beats per minute. Placenta is anterior position, not low lying. No placenta previa or abruptio. Placenta grade of 1 with subtle indentation of chorionic plate. US/OB Biophysical Prof W/O NST IMPRESSION: Biophysical score of 8 of 8. [id number]
[2025-03-03 15:16] VITALS: BP 120/77; PULSE 92
[2025-03-03 15:17] VITALS: RESP 18; TEMP 36.5; O2SAT 97
--- NOTE | 2025-03-03 16:53 | NURSING ---
1530 no OME screen done- pt here for a procedure-BPP- pt came from office
--- NOTE | 2025-03-03 17:44 | OB.TRI.PN ---
Progress Notes Date of Service: 03/03/25 Progress Note: seen for nonreactive NST in the office 36 weeks , 01/31 bpp an dreactive NST now, reassuring dc home fu as scheudled. Laboratory Studies: Laboratory Tests 03/03/25 Range/Units 15:35 Group B Strep DNA Cancelled Specimen Comment Cancelled
== END 2025-03-03 16:50 | disposition home or self-care (01) ==
LOC: WPOUT 15:02 → WP 15:02
PROVIDERS: Referring Provider Obstetrics & Gynecology; Visit Provider Obstetrics & Gynecology
DX: O36.8330 Maternal care for abnormalities of the fetal heart rate or rhythm, third trimester, not applicable or unspecified (principal); Z3A.36 36 weeks gestation of pregnancy
CPT/HCPCS: 59025; 59050; 76819; 87081; 87653; 99221; G0378

== ENCOUNTER 2025-03-07 21:30 | Outpatient (CLI) | payer MEDICAID, SELFPAY ==
[2025-03-07] VITALS (7 sets, daily range): BP systolic 128–140; BP diastolic 64–76; PULSE 95–115; RESP 16; TEMP 36.6; O2SAT 98; BMI 38.4
--- OUTSIDE RECORDS SUMMARY | 2025-03-07 21:45 | XMS RPT_ITS | CCD ---
Author Organization [facility] Care Team Providers Care Head Banquet Waiter/Waitress Name Role Phone DO Lukas Westbrook Referring Provider Unavailabl e Dr. Raven Modi Attending Provider [phone] Care Physician, No Primary Primary Care Provider Unavailable Care Physician, No Primary Referring Provider Un available Summer ASSISTANT BUYER, DANIEL Bean Attending Provider [phone] Dr. Renate Handley Attending Provider [phone] Dr. Raven Modi Other Provider Dr. Raven [...] Un available Shell Curry CNM Attending Provider [phone] Shell Curry CNM Referring Provider [phone] Dr. Christiano Villafuerte MD Emergency Provider Care Physician, No Primary Primary Care Provider Unavailable Dr. Franco Ortiz DO Attending Provider Dr. Franco Ortiz DO Emergency Provider [phone] Lamin RYAN, Adri Attending Provider Unavailabl e Care Physician, No Primary Referring Provider Un available Shell Curry CNM Attending Provider [phone] Shell Curry CNM Referring Provider [phone] Noy SANTOS, Dr. Alvarado Emergency Provider Kim Espinoza DO, Dr. Carbajal Attending Provider Dr. Christiano Villafuerte MD Attending Provider Kim Espinoza DO, Dr. Carbajal Referring Provider Care Physician, No Primary Primary Care Provider Unavailable Summer GRIMALDO-C[place] Attending Provider Ceci ARAGON, Dr. Pulliam Attending Provider Ceci ARAGON, Dr. Pulliam Emergency Provider Geneva Ferguson Referring Provider [phone] Renate Handley MD Attending Provider Dr. Renate Handley MD Referring Provider Care Physician, No Primary Primary Care Provider Unavailable Dariana Eli CNM Attending Provider Care Physician, No Primary Primary Care Provider Unavailable Care Physician, No Primary Referring Provider Un available Dr. Raven Modi DO Other Provider Care Physician, No Primary Primary Care Provider Unavailable Care Physician, No Primary Referring Provider Un available Dr. Raven Modi DO Attending Provider Care Physician, No Primary Primary Care Provider Unavailable Care Physician, No Primary Referring Provider Un available Dr. Raven Modi DO Attending Provider Dr. Raven Modi DO Referring Provider Dr. Renate Handley MD Other Provider [phone] Care Physician, No Primary Primary Care Provider Unavailable Summer GRIMALDO-C[place] Attending Provider Care Physician, No Primary Referring Provider Un available Care Physician, No Primary Primary Care Unava ilable Rajananthony, Renate Attending Unavailable Marcanthony, Renate Admitting Unavailable Marcanthony, Renate Referring Unavailable Care Physician, No Primary Primary Care Unava ilable Marcanthony, Renate Attending Unavailable Marcanthony, Renate Referring Unavailable Care Physician, No Primary Primary Care Unava ilable Marcanthony, Renate Attending Unavailable Care Physician, No Primary Referring Unava ilable Care Physician, No Primary Primary Care Unava ilable Marcanthony, Renate Attending Unavailable Care Physician, No Primary Primary Care Unava ilable Marcanthony, Renate Referring Unavailable Marcanthony, Renate Attending Unavailable Care Physician, No Primary Primary Care Unava ilable Nkechie VelRaven morris Attending Unavailabl e Shell Curry Attending Unavailable Shell Curry Referring Unavailable Care Physician, No Primary Primary Care Unava ilable Care Physician, No Primary Primary Care Unava ilable Nkechie VelRaven morris Referring Unavailabl e Vande Velde, Raven Attending Unavailabl e Vande Velde, Raven Attending Unavailabl e Care Physician, No Primary Primary Care Unava ilable Vande VelRaven morris Referring Unavailabl e Summer ASSISTANT BUYER, [place] Attending Unavailable Care Physician, No Primary Referring Unava ilable Care Physician, No Primary Primary Care Unava ilable Billy, Renate Attending Unavailable Care Physician, No Primary Primary Care Unava ilable Care Physician, No Primary Referring Unava ilable Care Physician, No Primary Referring Unava ilable Care Physician, No Primary Primary Care Unava ilable Raven Modi Attending Unavailabl e Care Physician, No Primary Referring Unava ilable Shell Curry Attending Unavailable Care Physician, No Primary Primary Care Unava ilable Care Physician, No Primary Referring Unava ilable Care Physician, No Primary Primary Care Unava ilable Vande VelRaven morris Attending Unavailabl e Heraclio Ornelas Attending Unavailable Care Physician, No Primary Primary Care Unava ilable Care Physician, No Primary Primary Care Unava ilable Franco Ortiz Attending Unavailable [place] ASSISTANT BUYER, [place] Attending Unavailable Summer ASSISTANT BUYER, [place] Referring Unavailable Care Physician, No Primary Primary Care Unava ilable Christiano Villafuerte Attending Unavailable Care Physician, No Primary Primary Care Unava ilable Care Physician, No Primary Primary Care Unava ilable Vande Velalexandra, Raven Attending Unavailabl e Vande Velde, Raven Referring Unavailabl e Vande Velde, Raven Consulting Unavailabl e Marcanthony, Renate Referring Unavailable Care Physician, No Primary Primary Care Unava ilable Marcanthony, Renate Consulting Unavailable Marcanthony, Renate Attending Unavailable Marcanthony, Renate Referring Unavailable Care Physician, No Primary Primary Care Unava ilable Marcanthony, Renate Consulting Unavailable Marcanthony, Renate Attending Unavailable Marcanthony, Renate Referring Unavailable Care Physician, No Primary Primary Care Unava ilable Marcanthony, Renate Attending Unavailable Care Physician, No Primary Referring Unava ilable Care Physician, No Primary Primary Care Unava ilable Marcanthony, Renate Attending Unavailable Summer ASSISTANT BUYER, [place] Attending Unavailable Care Physician, No Primary Primary Care Unava ilable Care Physician, No Primary Referring Unava ilable Care Physician, No Primary Primary Care Unava ilable Marcanthony, Renate Attending Unavailable Care Physician, No Primary Primary Care Unava ilable Care Physician, No Primary Referring Unava ilable Marcanthony, Renate Attending Unavailable Care Physician, No Primary Primary Care Unava ilable Care Physician, No Primary Referring Unava ilable Marcanthony, Renate Attending Unavailable Care Physician, No Primary Referring Unava ilable Care Physician, No Primary Primary Care Unava ilable Kim Espinoza, Raven Attending Unavailabl e Care Physician, No Primary Referring Unava ilable Care Physician, No Primary Primary Care Unava ilable Dariana Eli Attending Unavailable Care Physician, No Primary Primary Care Unava ilable Adri Kimble Attending Unavailable Medications Current Medications Medication Drug Class(es) Dates Sig (Normalized) Sig (Original) [place] (Nk) (9 sources) Start: 01-23-2025 [place] (Nk) A ctive January 23, 2025 12:00am Start: 08-30-2024 [place] (Nk) A ctive August 30, 2024 1:00am Start: 08-30-2024 [place] (Nk) A ctive August 30, 2024 12:00am Start: 08-15-2023 [place] (Nk) A ctive August 15, 2023 12:00am Completed/Discontinued Medications Medication Drug Class(es) Dates Sig (Normalized) Sig (Original) acetaminophen 325 mg oral tablet (20 sources) Start: 11-24-19 End: 12-22-19 take 1 tablet by mouth once as needed Acetaminophen (Tylenol) 325 mg tablet Discontinued 325 mg PO ONCE as needed November 23, 2021 12:00am December 21, 2021 2:44pm acetaminophen 325 mg / oxyCODONE hydrochloride 5 mg oral tablet (20 sources) Opioid Agonist Start: 11-07-19 End: 11-24-19 Oxycodone-Acetaminophe n (Percocet) 5-325 mg tablet Discontinued 1 {tbl} PO EVERY 6 HOURS as needed for pain 20 7 0 November 06, 2021 November 23, 2021 9:05am delivery delivered Encounter for delivery without indication cephalexin 500 mg oral capsule (20 sources) Cephalosporin Antibacterial Start: 04-21-20 End: 04-28-20 [...] Discontinued 150 mg IM every 3 months 3 April 12, 2022 4:20pm August 15, 2023 6:52pm Start: 02-18-2019 End: 03-05-2021 inject 150 mg by intramuscular injection every three months Medroxyprogesterone 150 MG/ML syringe Discontinued 150 mg IM .[id number] February 18, 2019 12:00am March 05, 2021 9:13am Start: 02-18-2019 End: 03-05-2021 inject 150 mg by intramuscular injection every three months Medroxyprogesterone Discontinued 150 MG IM .[id number] February 17, 2019 11:00pm March 05, 2021 8:13am metoclopramide 10 mg oral tablet (16 sources) Dopamine-2 Receptor Antagonist Start: 10-28-2024 End: [...] No.175-Iron Fum-Folic Ac id 29-1 mg tablet (19 sources) Start: 06-14-2021 End: 08-23-2021 Pnv No.175-Iron Fum-Folic Ac id 29-1 mg tablet Discontinued {tbl} PO June 14, 2021 1:00am August 23, 2021 1:59pm Start: 06-14-2021 End: 08-23-2021 Pnv No.175-Iron Fum-Folic Ac id 29-1 mg tablet Discontinued {tbl} PO June 14, 2021 12:00am August 23, 2021 12:59pm promethazine hydrochloride 12.5 mg oral tablet (20 sources) Phenothiazine Start: 03-24-2021 End: 06-14-2021 take [...] Onset: 11-06-2024 Episodic Contraceptive and procreative management (20 sources) Patient encounter status; Translations: [Encounter for sterilization] Onset: 03-03-2025 01-06-2025 Episodic Comment on above: title 19 signed 01/06 Early or threatened labor (20 sources) False labor at or after 37 completed weeks of gestation; Translations: [False labor at or after 37 completed weeks of gestation] Onset: 02-21-2025 Episodic distress and abnormal forces of labor (20 sources) Arrested active phase of labor; Translations: [Secondary uterine inertia] Episodic Hemorrhage during ; abruptio placenta; placenta previa (20 sources) Vaginal bleeding complicating early ; Translations: [Hemorrhage in early , unspecified] Episodic Comment on above: spotting only , no c ervical dilation. pt reassured by ultrasound. miscarriage precautions discussed Immunizations and screening for infectious disease (1 source) Encounter for immunization; Translations: [Encounter for immunization] Onset: 02-18-2025 Episodic Inflammation; infection of eye (except that caused by tuberculosis or sexually transmitteddisease) (20 sources) Conjunctivitis; Translations: [Unspecified conjunctivitis] 08-19-2022 Episodic Menstrual disorders (20 sources) Menorrhagia; Translations: [Excessive and frequent menstruation with regular cycle] 04-22-2022 Chronic Other complications of ; puerperium affecting management of mother (2 sources) delivery - delivered; Translations: [Encounter for delivery without indication] Episodic Other complications of ; puerperium affecting management of mother (2 sources) Encounter for delivery without indication; Translations: [ delivery, without mention of indication, delivered, with or without mention of antepartum condition] Episodic Other complications of ; puerperium affecting management of mother (20 sources) Deliveries by ; Translations: [Encounter for [...] Translations: [Obesity complicating , second trimester] Onset: 01-07-2025 Chronic Other complications of (20 sources) Urinary tract infection in ; Translations: [...] above: , LINDA 03/31/25, PC: Babak, : Adolph PRR, , LINDA 03/31, PC: Babak, : Adolph PRR, , LINDA 03/31 Girl, PC: Babak, : Adolph PRR, , LINDA 03/31 Girl, Rao PC: Babak, : Adolph Other complications of (20 sources) Pain in female pelvis; Translations: [Other specified related conditions, first trimester] 08-30-2024 Episodic Other complications of (2 sources) Supervision of high risk , unspecified, second trimester; Translations: [Supervision of high risk , unspecified, second trimester] Onset: 01-07-2025 Episodic Other complications of (2 sources) Other specified related conditions, unspecified trimester; Translations: [Other specified related conditions, unspecified trimester] Onset: 01-07-2025 Episodic Other female genital disorders (20 sources) Heavy episode of vaginal bleeding; Translations: [Abnormal uterine and vaginal bleeding, unspecified] 04-22-2022 Chronic Other nutritional; endocrine; and metabolic disorders (20 sources) Medium-chain acyl-coenzyme A dehydrogenase deficiency; 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 Polyhydramnios and other problems of amniotic cavity (20 sources) Chorioamnionitis; Translations: [Chorioamnionitis, unspecified trimester, not applicable or unspecified] Episodic Comment on above: amp gent clinda x 24 hour , diagnosed immediatley PP Previous (2 sources) Maternal care for unspecified type scar from previous delivery; Translations: [Maternal care for unspecified type scar from previous delivery] Onset: 01-07-2025 Episodic Residual codes; unclassified (20 sources) Family history of autism; Translations: [Family history of other mental and behavioral disorders] 08-09-2024 Episodic Comment on above: FOB sister Residual codes; unclassified (2 sources) Family history of other mental and behavioral disorders; Translations: [Family history of other mental and behavioral disorders] Onset: 01-07-2025 Episodic Residual codes; unclassified (1 source) 36 weeks gestation of ; Translations: [36 weeks gestation of ] Onset: 03-03-2025 Episodic Residual codes; unclassified (1 source) 34 weeks gestation of ; Translations: [34 weeks gestation of ] Onset: 02-18-2025 Episodic Residual codes; unclassified (1 source) 32 weeks gestation of ; Translations: [32 weeks gestation of ] Onset: 2025 Episodic Residual codes; unclassified (1 source) 30 weeks gestation of ; Translations: [30 weeks gestation of ] Onset: 01-23-2025 Episodic Residual codes; unclassified (1 source) 28 weeks gestation of ; Translations: [28 weeks gestation of ] Onset: 01-06-2025 Episodic Residual codes; unclassified (2 sources) 26 weeks gestation of ; Translations: [26 weeks gestation of ] Onset: 12-25-2024 Episodic Residual codes; unclassified (1 source) 25 weeks gestation of ; Translations: [25 weeks gestation of ] Onset: 12-20-2024 Episodic Sprains and strains (20 sources) Strain of muscle of lower limb; Translations: [Strain of unspecified muscle(s) and tendon(s) at lower leg level, right leg, initial encounter] 02-19-2019 Episodic Past or Other Problems Problem Classification Problem Date Documented Da te Episodic/Chronic Genitourinary symptoms and ill-defined conditions (1 source) Dysuria; Translations: [Dysuria] Onset: 11-26-2024 Episodic Nausea and vomiting (17 sources) Nausea and vomiting; Translations: [Nausea with vomiting, unspecified] Onset: 10-29-2024 11-02-2024 Episodic Open wounds of extremities (20 sources) Laceration of finger; Translations: [Laceration without foreign body of unspecified finger without damage to nail, initial encounter] Onset: 10-02-2024 06-24-2024 Episodic Other complications of (1 source) Supervision of high risk , unspecified, unspecified trimester; Translations: [Supervision of high risk , unspecified, unspecified trimester] Onset: 10-30-2024 Episodic Other complications of (1 source) Vomiting of , unspecified; Translations: [Vomiting of , unspecified] Onset: 08-30-2024 Episodic Other and delivery including normal (20 sources) [...] Panorama low risk-female. unremarkable anatomy, consistent dates Residual codes; unclassified (1 source) 21 weeks gestation of ; Translations: [21 weeks gestation of ] Onset: 11-21-2024 Episodic Residual codes; unclassified (1 source) 17 weeks gestation of ; Translations: [17 weeks gestation of ] Onset: 10-30-2024 Episodic Residual codes; unclassified (1 source) 9 weeks gestation of ; Translations: [9 weeks gestation of ] Onset: 08-30-2024 Episodic Results Test Name Value Interpretation Reference Range Facil ity Group B Strep DNA By PCRon 0 03-03-2025 GBS DNA ASSAY Normal Negative [facility] Comment on above: Result Comment: DUPL ICATE ORDER Performed By: #### L 8200.0000 ####[facility] [address] [place], [address] IC Normal [facility] Comment on above: Result Comment: DUPL ICATE ORDER Performed By: #### L 8200.0000 ####[facility] [address] [place], [address] PROBE CHECK Normal [facility] Comment on above: Result Comment: DUPL ICATE ORDER Performed By: #### L 8200.0000 ####[facility] [address] [place], [address] SPC Normal [facility] Comment on above: Result Comment: DUPL ICATE ORDER Performed By: #### L 8200.0000 ####[facility] [address] [place], [address] SWAB TYPE IS: Normal [facility] Comment on above: Result Comment: DUPL ICATE ORDER Performed By: #### L 8200.0000 ####[facility] [address] [place], [address] M8200.0100on 03-03-2025 M8200.0100 Negative Normal [facility] Comment on above: Performed By: #### L 100.0100, L501.0250, L3890.6006, L509.8002 #### [facility] [address] [place], [address] OB Biophysical Prof W/O NSTo n 03-03-2025 OB Biophysical Prof W/O NST [facility] [address] [place] [address] OB Biophysical Prof W/O NST MR#: [id number] Acct: [id number] Name: QUAN RODGERS KELTON Rep #: [id number] : 2000 F 25 From: Oneida Huggins PCP: Care Physician,No Primary Status: REG CLI Study: OB Biophysical Prof W/O NST Date of Exam: 02/17 Exam# [id number] Ordering Dr: Renate Handley PROCEDURE: OB BIOPHYSICAL PROF W/O NST 03/03/2025 REASON FOR EXAM: NONREACTIVE NST TECHNIQUE: Procedure Code: USBIOWO Modality: US Procedure: OB BIOPHYSICAL PROF W/O NST COMPARISON: None FINDINGS Biophysical score of 8/8. Cephalic position. Amniotic fluid is within normal limits. Largest fluid pocket is 7 cm. ALONDRA of 17.4 cm. heart rate of 137 beats per minute. Placenta is anterior position, not low lying. No placenta previa or abruptio. Placenta grade of 1 with subtle indentation of chorionic plate. US/OB Biophysical Prof W/O NST IMPRESSION: Biophysical score of 8 of 8. Reading Location: [place] [address] CC: Dr. Renate Handley MD; No Primary Care Physician Wire Threader: Signed Normal [facility] OB Triage Progress Noteon OB Triage Progress Note [facility] Medical Records Department [address] [place] [address] OB Triage Progress Note 03/03/25 1744 MR#: [id number] Acct: [id number] Name: QUAN RODGERS KELTON Rep #: [id number] : 2000 25 From: Renate Handley MD PCP: Care Physician,No Primary Status:DEP CLI Y DOS: Location: [facility]OUT Progress Notes Date of Service: 03/03/25 Progress Note: seen for nonreactive NST in the office 36 weeks , 01/31 bpp an dreactive NST now, reassuring dc home fu as scheudled. Laboratory Studies: Laboratory Tests 03/03/25 Range/Units 15:35 Group B Strep DNA Cancelled Specimen Comment Cancelled 03/04/25 0548 Date Renate Handley MD Cosigner Signature (if applicable): Date ___ CC: Dr. Renate Handley MD; No Primary Care Physician Signed Normal [facility] [employer] Hand[employer] Office Visit Reporton 03-03-2025 [employer] Office Visit Report [facility] [address], [address] [place] [address] OFFICE VISIT Date of Service: 03/03/25 MR#: [id number] Acct: [id number] Name: QUAN RODGERS Rep #: [id number] : 2000 Provider: Dr. Renate yi MD Age/Sex: 25/F [place] [facility] [place]: Signed Intake Vital Signs 01/06/25 14:59 02/18/25 14:45 03/03/25 13:36 Height 5 ft 10 in 5 ft 10 in 5 ft 10 in Weight: 270 lb 1 oz 267 lb 1 oz BMI 38.7 38.3 BP 106/59 L 123/72 H Intake Visit Reasons: 36 wk ob/nst *SM Csection Music Worker Required: No Is patient in pain?: No Allergies No Known Allergies Allergy (Verified 03/03/25 13:34) Medications ???Medication ???Instructions ???Recorded ???Confirmed ???Type NK 01/23/25 03/03/25 History Last Menstrual Period: 06/24/24 Zika: Zika virus screening: Negative : No PFSH PFSH Medical History Chorioamnionitis delivery delivered Surgical History History of section History of surgery Social History adopted: No household members: children and other details: mom housing: house number of children: 1 current occupational status: employed current occupation: [employer] @ [employer] current occupational exposures/hazards: No pets and [...] times per week duration: < 15 minutes/day aly/taoist: None seatbelt use: always do you feel [...] - full term 8lbs 14oz Male epidural [facility] Renate Handley Max Delivery Date: 11/06/21 Last Updated by: Adri Kimble, RN LTCS SM AOD 6 cm boy Babak IOL 41 HPI 36 wk ob/nst *SM Csection Details: QUAN RODGERS is a 25 year old who presents for routine OB visit. OB Visit LINDA Calculator Estimated Delivery Date Method Current WG Current Estimate 03/31/25 LMP (Certain) 36w 0d Other Estimates 03/30/25 Ultrasound #1 36w 1d Expected Delivery Route/Plan Repeat C/S with [...] new ob labs. 10/21/24 -???-???-???-???-? ??-???-???-???-??? -???-???-???- (more content not included)... Normal [facility] [employer] Office Visit Reporton 02-18-2025 [employer] Office Visit Report [facility] [address], [address] [place] [address] OFFICE VISIT Date of Service: 02/18/25 MR#: [id number] Acct: [id number] Name: QUAN RODGERS KELTON Rep #: [id number] : 2000 Provider: Dr. Renate yi MD Age/Sex: 25/F [place] [facility] [place]: Signed Intake Vital Signs 01/06/25 14:59 02/03/25 10:41 02/13/25 11:44 02/18/25 14:45 Height 5 ft 10 in 5 ft 10 in 5 ft 10 in 5 ft 10 in Weight: 270 lb 1 oz BMI 38.7 BP 106/59 L Intake Visit Reasons: 34 wk ob *SM Csection Music Worker Required: No Is patient in pain?: No Feel stressed/tense/ner vous/anxious/diffi culty sleeping: not at all Allergies No Known Allergies Allergy (Verified 02/13/25 11:48) Medications ???Medication ???Instructions ???Recorded ???Confirmed ???Type NK 01/23/25 02/18/25 History Last Menstrual Period: 06/24/24 : No PFSH PFSH Medical History Chorioamnionitis delivery delivered Surgical History History of section History of surgery Social History adopted: No household members: children and other details: mom housing: house number of children: 1 current occupational status: employed current occupation: [employer] @ [employer] current occupational exposures/hazards: No pets and [...] times per week duration: < 15 minutes/day aly/taoist: None seatbelt use: always do you feel [...] - full term 8lbs 14oz Male epidural [facility] Renate Handley Max Delivery Date: 11/06/21 Last Updated by: Adri Kimble, RN LTCS SM AOD 6 cm boy Babak IOL 41 HPI 34 wk ob *SM Csection Details: QUAN RODGERS is a 25 year old who presents for routine OB visit. OB Visit LINDA Calculator Estimated Delivery Date Method Current WG Current Estimate 03/31/25 LMP (Certain) 34w 1d Other Estimates 03/30/25 Ultrasound #1 34w 2d Expected Delivery Route/Plan Repeat C/S with SM [...] NIPT with new ob labs. 10/21/24 -???-???-???-???-? ??-???- (more content not included)... Normal [facility] Urine Cultureon 02-16-2025 [facility] Urine Culture Staphylococcus aureus Prospect Count 1000-10,000 Mixed Gram Positive Organisms Mixed Gram Positive Organisms MIXC Mixed contaminants. Submit a new specimen if indicated. Staphylococcus aureus: REACTION cefOXitin Susc Islt Doxycycline Islt CORRINA 4 S Clindamycin.induce d Susc Islt Gentamicin Islt CORRINA <=0.5 S Linezolid Islt CORRINA 2 S Moxifloxacin Islt CORRINA <=0.25 S Nitrofurantoin Islt CORRINA <=16 S Oxacillin Susc Islt <=0.25 S Tetracycline Islt CORRINA >=16 R TMP SMX Islt CORRINA <=10 S Vancomycin Islt CORRINA <=0.5 S Normal [facility] Comment on above: Performed By: #### L 400.0001, M100.2200 #### [facility] [address] [place], [address] Amorphous sediment detection in urine sediment by light microscopyOrdered By: Renate Handley on 02-13-2025 Amorphous sediment LM Ql (Urine sed) 1+ [facility] Bilirubin Test strip Ql (U)O rdered By: Renate Handley on 02-13-2025 Bilirubin Ql (U) Negative Negative [facility] CBC-Complete Blood Cnt No Di ffon 02-13-2025 HCT Normal 37-47 [facility] Comment on above: Result Comment: Canc elled via OM: Ordered/Entered in error Performed By: #### L 100.0500, L501.0900 ####[facility] [address] [place], [address] HGB Normal 12.0-15.0 [facility] Comment on above: Result Comment: Canc elled via OM: Ordered/Entered in error Performed By: #### L 100.0500, L501.0900 ####[facility] [address] [place], [address] MCH Normal 27.0-32.0 [facility] Comment on above: Result Comment: Canc elled via OM: Ordered/Entered in error Performed By: #### L 100.0500, L501.0900 ####[facility] [address] [place], [address] MCHC Normal 32-36 [facility] Comment on above: Result Comment: Canc elled via OM: Ordered/Entered in error Performed By: #### L 100.0500, L501.0900 ####[facility] [address] [place], [address] MCV Normal 81-99 [facility] Comment on above: Result Comment: Canc elled via OM: Ordered/Entered in error Performed By: #### L 100.0500, L501.0900 ####[facility] [address] [place], [address] PLT Normal 150-450 [facility] Comment on above: Result Comment: Canc elled via OM: Ordered/Entered in error Performed By: #### L 100.0500, L501.0900 ####[facility] [address] [place], [address] RBC Normal 4.2-5.4 [facility] Comment on above: Result Comment: Canc elled via OM: Ordered/Entered in error Performed By: #### L 100.0500, L501.0900 ####[facility] [address] [place], [address] RDW CV Normal 11.6-14.6 [facility] Comment on above: Result Comment: Canc elled via OM: Ordered/Entered in error Performed By: #### L 100.0500, L501.0900 ####[facility] [address] [place], [address] RDW SD Normal 35.1-43.9 [facility] Comment on above: Result Comment: Canc elled via OM: Ordered/Entered in error Performed By: #### L 100.0500, L501.0900 ####[facility] [address] [place], [address] WBC Normal 4.4-11.0 [facility] Comment on above: Result Comment: Canc elled via OM: Ordered/Entered in error Performed By: #### L 100.0500, L501.0900 ####[facility] [address] [place], [address] Ketones Test strip Ql (U)Ord ered By: Renate Handley on 02-13-2025 Ketones Ql (U) Negative Negative [facility] Microscopic analysis of urin e for red blood cells (RBC)Ordered By: Renate Handley on 02-13-2025 Microscopic analysis of urine for red blood cells (RBC) 0-5 SEEN /hpf 0-5 [facility] Mucus LM Ql (Urine sed)Order ed By: Renate Handley on 02-13-2025 Mucus Ql (Urine sed) 0 SEEN /hpf [facility] Nitrite Test strip Ql (U)Ord ered By: Renate Handley on 02-13-2025 Nitrite Ql (U) Negative Negative [facility] OB Triage Progress Noteon OB Triage Progress Note [facility] Medical Records Department [address] [place] [address] OB Triage Progress Note 02/13/25 1342 MR#: [id number] Acct: [id number] Name: QUAN RODGERS KELTON Rep #: [id number] : 2000 25 From: Renate Handley MD PCP: Care Physician,No Primary Status:DEP CLI Y DOS: Location: [facility]OUT Progress Notes Date of Service: 02/13/25 Progress Note: Patient presents for triage evaluation secondary to false labor FHT: 140q 3-5 Moderate variability reactive no decelerations category I tracing [place]: occasional Contractions Assessment and plan: 33 week threatened labor no cervical dilation Reactive NST, reassuring maternal and status patient discharged to home to follow-up as scheudna. See problem list details for additional plan information. Charges/Coding Procedures Urinary/Genital 52xxx-59xxx: [id number] non-stress test Interp 02/14/25 0836 Date Renate Handley MD Cosigner Signature (if applicable): Date ___ CC: Dr. Renate Handley MD; No Primary Care Physician Signed Normal [facility] Protein Test strip Ql (U)Ord ered By: Renate Handley on 02-13-2025 Protein Ql (U) 15 mg/dl High Negative [facility] Protein+Creatinine Ratio,Uri neon 02-13-2025 PROT:CRE RATIO Normal 0-200 [facility] Comment on above: Result Comment: Canc elled via OM: Ordered/Entered in error Performed By: #### L 100.0500, L501.0900 ####[facility] [address] [place], [address] PROTEIN,UR.RAN. Normal 0.0-12.0 [facility] Comment on above: Result Comment: Canc elled via OM: Ordered/Entered in error Performed By: #### L 100.0500, L501.0900 ####[facility] [address] [place], [address] UR CREAT Normal 28.00-217.00 [facility] Comment on above: Result Comment: Canc elled via OM: Ordered/Entered in error Performed By: #### L 100.0500, L501.0900 ####[facility] [address] [place], [address] Squamous epithelial cells de tection in urine sediment by light microscopyOrdered By: Renate Handley on 02-13-2025 Epithelial cells.squamous LM Ql (Urine sed) 0-5 SEEN /hpf 5-10 [facility] Transitional cells detection in urine sediment by light microscopyOrdered By: Renate Handley on 02-13-2025 Transitional cells LM Ql (Urine sed) 0-5 SEEN /hpf 0-5 [facility] Urinalysis, Completeon 02-13 AMORPHOUS 1+ Normal [facility] Comment on above: Order Comment: CLEAN CATCH Performed By: #### L 400.0001, M100.2200 #### [facility] [address] [place], [address] BACTERIA 1+ /hpf Normal None Seen [facility] Comment on above: Order Comment: CLEAN CATCH Performed By: #### L 400.0001, M100.2200 #### [facility] [address] [place], [address] EPI,SQUAMOUS 0-5 SEEN Normal 5-10 [facility] Comment on above: Order Comment: CLEAN CATCH Performed By: #### L 400.0001, M100.2200 #### [facility] [address] [place], [address] EPI,TRANSITION 0-5 SEEN Normal 0-5 [facility] Comment on above: Order Comment: CLEAN CATCH Performed By: #### L 400.0001, M100.2200 #### [facility] [address] [place], [address] RBC 0-5 SEEN Normal 0-5 [facility] Comment on above: Order Comment: CLEAN CATCH Performed By: #### L 400.0001, M100.2200 #### [facility] [address] [place], [address] WBC 0-5 SEEN Normal 0-5 [facility] Comment on above: Order Comment: CLEAN CATCH Performed By: #### L 400.0001, M100.2200 #### [facility] [address] [place], [address] Mucus Ql (Urine sed) 0 SEEN Normal [facility] Comment on above: Order Comment: CLEAN CATCH Performed By: #### L 400.0001, M100.2200 #### [facility] [address] [place], [address] Urine clarityOrdered By: Eric Handley on 02-13-2025 Clarity (U) Sl Cldy Clear [facility] Urine color determinationOrd ered By: Renate Handley on 02-13-2025 Color (U) Straw Yellow [facility] Urine cultureOrdered By: Eric Handley on 02-13-2025 Bacteria identified Cx Nom (U) Staphylococcus aureus Abnormal [facility] Bacteria identified Cx Nom (U) Positive Abnormal [facility] Urine glucose detectionOrder ed By: Renate Handley on 02-13-2025 Glucose Ql (U) Normal mg/dl Normal [facility] Urine leukocyte esterase det ection by dipstickOrdered By: Renate Handley on 02-13-2025 Leukocyte esterase Test strip Ql (U) Negative Negative [facility] Urine pHOrdered By: Renate sahu on 02-13-2025 pH (U) 7.0 [pH] 5.0 - 8.0 [facility] Urine sediment bacteria coun t by microscopy (number/high power field)Ordered By: Renate Handley on 02-13-2025 Bacteria LM.HPF (Urine sed) [#/Area] 1 /[HPF] None Seen [facility] Urine specific gravity measu rementOrdered By: Renate Handley on 02-13-2025 Specific gravity (U) [Rel density] 1.015 1.002-1.030 [facility] Urine urobilinogen measureme ntOrdered By: Renate Handley on 02-13-2025 Urobilinogen Ql (U) Normal mg/dl Normal [facility] White blood cell countOrdere d By: Renate Handley on 02-13-2025 White blood cell count 0-5 SEEN /hpf 0-5 [facility] OB Limited With Biometricson 02-07-2025 OB Limited With Biometrics [facility] [address] [place] [address] OB Limited With Biometrics MR#: [id number] Acct: [id number] Name: QUAN RODGERS KELTON Rep #: [id number] : 2000 F 25 From: Royce krueger MD PCP: Care Physician,No Primary Status: REG CLI Study: OB Limited With Biometrics Date of Exam: 02/07 Exam# [id number] Ordering Dr: Renate Handley PROCEDURE: OB LIMITED WITH BIOMETRICS N/A REASON FOR EXAM: FETA GROWTH TECHNIQUE: OB LIMITED WITH BIOMETRICS COMPARISON: November 12, 2024. FINDINGS Number: 1 Position: Vertex Placental Position: Anterior and not low-lying. Placental Abnormalities: No evidence of previa. DIMENSIONS: Biparietal Diameter: 8.12 cm: 32 weeks and 4 days: 44 percentile/ Head Circumference: 30.85 cm: 34 weeks and 3 days: 63rd percentile/ Abdominal Circumference: 27.76 cm: 31 weeks and 6 days: 28 percentile/ Femur Length: 6.41 cm: 33 weeks and 1 day: 52nd percentile/ ESTIMATED WEIGHT: 1974 g plus/-296 g ESTIMATED WEIGHT PERCENTILE (24+ weeks): 36 ESTIMATED GESTATIONAL AGE: Baseline: 32 weeks and 4 days By Ultrasound: 33 weeks and 4 days ESTIMATED DATE OF DELIVERY: Baseline: March 31, 2025 By Ultrasound: March 24, 2025 BIOPHYSICAL ASSESSMENT: Amniotic Fluid Volume: 5.1 cm Amniotic Fluid Index: 14.9 (8-24 cm normal range) Cardiac Motion: 130 beats per minute (average) Trunk and Limb Motion: Present. US/OB Limited With Biometrics IMPRESSION: Single live intrauterine gestation with a mean gestational age of 32 weeks. The measurements obtained today fall within normal expected range. Reading Location: [place] [address] CC: Dr. Renate Handley MD; No Primary Care Physician Wire Threader: Signed Normal [facility] - Chemistry and C hemistry - challengeOrdered By: Renate Handley on 2025 Glucose Ql (U) Negative [facility] - UrinalysisOrder ed By: Renate Handley on 2025 Protein Ql (U) Negative [facility] [employer] Office Visit Reporton 2025 [employer] Office Visit Report [facility] [address], [address] [place] [address] OFFICE VISIT Date of Service: 02/03/25 MR#: [id number] Acct: [id number] Name: QUAN RODGERS KELTON Rep #: [id number] 1 : 2000 Provider: Dr. Renate yi MD Age/Sex: 25/F Location: [facility] Status: Signed Intake Vital Signs 11/21/24 10:42 01/23/25 10:44 02/03/25 10:41 Height 5 ft 11 in 5 ft 10 in 5 ft 10 in Weight: 264 lb 8 oz BMI 37.9 BP 118/81 H Intake Visit Reasons: 32 wk ob *SM Csection Music Worker Required: No Is patient in pain?: No Allergies No Known Allergies Allergy (Verified 02/03/25 10:40) Medications ???Medication ???Instructions ???Recorded ???Confirmed ???Type NK 01/23/25 02/03/25 History Last Menstrual Period: 06/24/24 Zika: Zika virus screening: Negative : No PFSH PFSH Medical History Chorioamnionitis delivery delivered Surgical History History of section History of surgery Social History adopted: No household members: children and other details: mom housing: house number of children: 1 current occupational status: employed 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 Renate Handley Max Delivery Date: 11/06/21 Last Updated by: Adri Lamin, RN LTCS SM AOD 6 cm boy Babak IOL 41 HPI 32 wk ob *SM Csection Details: QUAN RODGERS is a 25 year old who presents for routine OB visit. OB Visit LINDA Calculator Estimated Delivery Date Method Current WG Current Estimate 03/31/25 LMP (Certain) 32w 0d Other Estimates 03/30/25 Ultrasound #1 32w 1d Expected Delivery Route/Plan Repeat C/S with [...] -???-???-???- 17w 0d 258 lb 2 oz (-14 oz) 11 (more content not included)... Normal [facility] [employer] Office Visit Reporton 01-23-2025 [employer] Office Visit Report [facility] [address], [address] [place] [address] OFFICE VISIT Date of Service: 01/23/25 MR#: [id number] Acct: [id number] Name: QUAN RODGERS KELTON Rep #: [id number] 3 : 2000 Provider: Dr. Renate yi MD Age/Sex: 24/F [place] [facility] [place]: Signed Intake Vital Signs 10/21/24 08:39 11/21/24 10:42 01/06/25 14:59 01/23/25 10:44 Height 5 ft 11 in 5 ft 11 in 5 ft 10 in 5 ft 10 in Weight: 264 lb 4 oz BMI 37.9 BP 112/73 Intake Visit Reasons: 30wk ob *SM Csection Music Worker Required: No Is patient in pain?: No Allergies No Known Allergies Allergy (Verified 01/23/25 10:48) Medications ???Medication ???Instructions ???Recorded ???Confirmed ???Type NK 01/23/25 01/23/25 History Last Menstrual Period: 06/24/24 Zika: Zika virus screening: Negative : No PFSH PFSH Medical History Chorioamnionitis delivery delivered Surgical History History of section History of surgery Social History adopted: No household members: children and other details: mom housing: house number of children: 1 current occupational status: employed current occupation: [employer] @ [employer] current occupational exposures/hazards: No pets and [...] times per week duration: < 15 minutes/day aly/taoist: None seatbelt use: always do you feel [...] 6 cm boy Babak IOL 41 HPI 30wk ob *SM Csection Details: QUAN RODGERS is a 24 year old who presents for routine OB visit. OB Visit LINDA Calculator Estimated Delivery Date Method Current WG Current Estimate 03/31/25 LMP (Certain) 30w 3d Other Estimates 03/30/25 Ultrasound #1 30w 4d Expected Delivery Route/Plan Repeat C/S with [...] labs. 10/21/24 -???-???-???-???-? ??-???-???-???-??? -???-???-???- 17w 0d 2 (more content not included)... Normal [facility] Absolute lymphocyte countOrd ered By: Dariana Eli on 01-06-2025 Lymphocytes Auto (Unsp spec) [#/Vol] 1.74 10*3/uL 0.83-4.51 [facility] Absolute neutrophil countOrd ered By: Dariana Eli on 01-06-2025 Neutrophils (Bld) [#/Vol] 8.0 10*3/uL High 2.0-7.7 [facility] Automated blood erythrocyte countOrdered By: Dariana Eli on 01-06-2025 RBC (Bld) [#/Vol] 3.97 10*6/uL Low 4.2-5.4 [facility] Comment on above: Performed By: #### L 100.0100, L501.0250, L3890.6006, L509.8002 #### [facility] [place], [address] Automated blood hematocrit ( percentage)Ordered By: Dariana Eli on 01-06-2025 Hematocrit (Bld) [Volume fraction] 36.3 % Low 37-47 [facility] Comment on above: Performed By: #### L 100.0100, L501.0250, L3890.6006, L509.8002 #### [facility] [address] [place], [address] Automated lymphocyte count a s percentage of total leukocytesOrdered By: Dariana Eli on 01-06-2025 Lymphocytes/100 WBC Auto (Unsp spec) 16.1 % Low 19-41 [facility] Basophil percentageOrdered B y: Dariana Eli on 01-06-2025 Basophils/100 WBC (Bld) 0.3 % Normal 0-1 [facility] Comment on above: Performed By: #### L 100.0100, L501.0250, L3890.6006, L509.8002 #### [facility] [address] [place], [address] CBC W/Diff, Automatedon 12-24 Absolute Lymph 1.74 X10 3/uL Normal 0.83-4.51 [facility] Comment on above: Performed By: #### L 100.0100, L501.0250, L3890.6006, L509.8002 #### [facility] [address] [place], [address] Absolute Neut 8.0 X10 3/uL High 2.0-7.7 [facility] Comment on above: Performed By: #### L 100.0100, L501.0250, L3890.6006, L509.8002 #### [facility] [address] [place], [address] IG% 0.600 Normal 0.0-0.9 [facility] Comment on above: Result Comment: IG% - Immature Granulocytes (promyelocytes, myelocytes and metamyelocytes) > 1% indicates that a LEFT SHIFT is Present. Performed By: #### L 100.0100, L501.0250, L3890.6006, L509.8002 #### [facility] [address] [place], [address] Lymphocytes/100 WBC (Bld) 16.1 % Low 19-41 [facility] Comment on above: Performed By: #### L 100.0100, L501.0250, L3890.6006, L509.8002 #### [facility] [address] [place], [address] Nucleated RBC (Bld) [#/Vol] 0 10*3/uL Normal 0-5 [facility] Comment on above: Performed By: #### L 100.0100, L501.0250, L3890.6006, L509.8002 #### [facility] [address] [place], [address] RDW SD 41.3 fl Normal 35.1-43.9 [facility] Comment on above: Performed By: #### L 100.0100, L501.0250, L3890.6006, L509.8002 #### [facility] [address] [place], [address] Eosinophil percentageOrdered By: Dariana Eli on 01-06-2025 Eosinophils/100 WBC (Bld) 1.3 % Normal 0-5 [facility] Comment on above: Performed By: #### L 100.0100, L501.0250, L3890.6006, L509.8002 #### [facility] [address] [place], [address] Erythrocyte distribution wid th ratioOrdered By: Dariana Eli on 01-06-2025 Erythrocyte distribution width (RBC) [Ratio] 12.4 % Normal 11.6-14.6 [facility] Comment on above: Performed By: #### L 100.0100, L501.0250, L3890.6006, L509.8002 #### [facility] [address] [place], [address] Erythrocyte distribution wid th standard deviationOrdered By: Dariana Eli on 01-06-2025 Erythrocyte distribution width (RBC) [Ratio] 41.3 fl 35.1-43.9 [facility] Glucose Challenge Gest 1H 50 christie 01-06-2025 GLU GEST 50g 1H 79 mg/dL Normal 70-140 [facility] Comment on above: Performed By: #### L 100.0100, L501.0250, L3890.6006, L509.8002 #### [facility] [address] [place], [address] Glucose measurement at 2 hitesh rs post-dose gestational glucose tolerance testOrdered By: Dariana Eli on 01-06-2025 Glucose [Mass/Vol] 79 mg/dL 70-140 [facility] HIVon 01-06-2025 HIV Non-Reactive Normal Nonreactive [facility] Comment on above: Result Comment: Non- Reactive Reactive Repeatedly reactive samples must be confirmed according to CDC recommended confirmatory algorithms. The subresults for either HIVAG or AHIV can be used as an aid in the selection of the confirmation algorithm for reactive samples. Send out specimens with Reactive results to [facility] for confirmation. Order the HIV antibody detection and differentiation: lc#[id number] Performed By: #### L 100.0100, L501.0250, L3890.6006, L509.8002 #### [facility] [address] [place], [place], [address] Hemoglobin measurementOrdere d By: Dariana Eli on 01-06-2025 Hemoglobin (Bld) [Mass/Vol] 12.6 g/dL Normal 12.0-15.0 [facility] Comment on above: Performed By: #### L 100.0100, L501.0250, L3890.6006, L509.8002 #### [facility] [address] [place], [place], [address] Immature granulocytes/100 WB C Auto (Bld)Ordered By: Dariana Eli on 01-06-2025 Immature granulocytes/100 WBC (Bld) 0.600 % 0.0-0.9 [facility] Comment on above: IG% - Immature Granu locytes (promyelocytes, myelocytes and metamyelocytes) > 1% indicates that a LEFT SHIFT is Present. MCV (mean corpuscular volume ) determinationOrdered By: Dariana Eli on 01-06-2025 MCV (RBC) [Entitic vol] 91.4 fL Normal 81-99 [facility] Comment on above: Performed By: #### L 100.0100, L501.0250, L3890.6006, L509.8002 #### [facility] [address] [place], [address] Mean corpuscular hemoglobin (MCH) determinationOrdered By: Dariana Eli on 01-06-2025 MCH (RBC) [Entitic mass] 31.7 pg Normal 27.0-32.0 [facility] Comment on above: Performed By: #### L 100.0100, L501.0250, L3890.6006, L509.8002 #### [facility] [address] [place], [place], [address] Mean corpuscular hemoglobin concentration (MCHC) determinationOrdered By: Dariana Eli on 01-06-2025 MCHC (RBC) [Mass/Vol] 34.7 g/dL Normal 32-36 [facility] Comment on above: Performed By: #### L 100.0100, L501.0250, L3890.6006, L509.8002 #### [facility] [address] [place], [address] Mean platelet volume determi nationOrdered By: Dariana Eli on 01-06-2025 Platelet mean volume (Bld) [Entitic vol] 12.4 fL High 6.2-12.0 [facility] Comment on above: Performed By: #### L 100.0100, L501.0250, L3890.6006, L509.8002 #### [facility] [address] [place], [address] Monocyte percentageOrdered B y: Dariana Eli on 01-06-2025 Monocytes/100 WBC (Bld) 7.4 % Normal 0-10 [facility] Comment on above: Performed By: #### L 100.0100, L501.0250, L3890.6006, L509.8002 #### [facility] [address] [place], [place], [address] Neutrophil percentageOrdered By: Dariana Eli on 01-06-2025 Neutrophils/100 WBC (Bld) 74.3 % High 47-70 [facility] Comment on above: Performed By: #### L 100.0100, L501.0250, L3890.6006, L509.8002 #### [facility] [address] [place], [place], [address] No Panel InformationOrdered By: Dariana Eli on 01-06-2025 HIV (1&2) Antibody Non-Reactive Nonreactive [facility] Comment on above: Non-ReactiveReactive Repeatedly reactive samples must be confirmed according to CDC recommended confirmatory algorithms. The subresults for either HIVAG or AHIV can be used as an aid in the selection of the confirmation algorithm for reactive samples.Send out specimens with Reactive results to [facility] for confirmation.Order the HIV antibody detection and differentiation: #[id number] Nucleated red blood cell per centageOrdered By: Dariana Eli on 01-06-2025 Nucleated RBC/100 WBC (Bld) [Ratio] 0 % 0-5 [facility] [employer] Office Visit Reporton 01-06-2025 [employer] Office Visit Report [facility] [address], [address] [place] [address] OFFICE VISIT Date of Service: 01/06/25 MR#: [id number] Acct: [id number] Name: QUAN RODGERS KELTON Rep #: [id number] 3 : 2000 Provider: Dr. 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 Renate Handley Max Delivery Date: 11/06/21 Last [...] -???-???-???- 17w 0d 258 lb 2 oz (-14 oz) 115/71 -???-???-???-???-? ??-???-???-???-??? -???-???-???- 148 -???-???-???-???-? ??-???-???-???-??? -???-???- (more content not included)... Normal [facility] Platelet countOrdered By: Brigette Eli on 01-06-2025 Platelets (Bld) [#/Vol] 192 10*3/uL Normal 150-450 [facility] Comment on above: Performed By: #### L 100.0100, L501.0250, L3890.6006, L509.8002 #### [facility] [address] [place], [address] Syphilis Antibodieson 2024 Syphilis Abs Non-Reactive Normal Nonreactive [facility] Comment on above: Performed By: #### L 100.0100, L501.0250, L3890.6006, L509.8002 #### [facility] [address] [place], [address] White blood cell (WBC) count Ordered By: Dariana Eli on 01-06-2025 WBC (Bld) [#/Vol] 10.8 10*3/uL Normal 4.4-11.0 [facility] Comment on above: Performed By: #### L 100.0100, L501.0250, L3890.6006, L509.8002 #### [facility] [address] [place], [address] Genital Culture Comprehensiv shanon 12-28-2024 VAC Reason for Exam: pelvic pain Normal vaginal josh isolated. No yeast, Gardnerella, Neisseria or beta-hemolytic Streptococcus isolated. Normal [facility] Comment on above: Performed By: #### L 100.0100, L501.0250, L3890.6006, L509.8002 #### [facility] [address] [place], [address] Urine Cultureon 12-27-2024 URC Mixed Gram Positive Organisms Prospect Count 11,000-25,000 MIXC Mixed contaminants. Submit a new specimen if indicated. Normal [facility] Comment on above: Performed By: #### L 100.0100, L501.0250, L3890.6006, L509.8002 #### [facility] [address] [place], [address] Genital cultureOrdered By: Miracle Espinoza on 12-25-2024 Source specific culture Neisseria or beta-hemolytic Streptococcus isolated. [facility] Gram Stainon 12-25-2024 GS Reason for Exam: pelvic pain Gram Stain 4+ Gram positive rods 2+ White Blood Cells No Gram negative diplococci Score = 0 Interpretation: 0-3 Normal, 4-6 Intermediate, 7-10 Positive BV Normal [facility] Comment on above: Performed By: #### L 100.0100, L501.0250, L3890.6006, L509.8002 #### [facility] [address] [place], [address] Gram stainOrdered By: Patricia Espinoza on 12-25-2024 Microscopic observation Gram stain Nom (Unsp spec) [facility] Kidney and Bladderon 025 Kidney and Bladder [facility] Imaging Services [address] [place], [place] [address] Kidney and Bladder MR#: [id number] Acct: [id number] Name: QUAN RODGERS KELTON Rep #: [id number] : 2000 F 24 From: Guzman Kidd MD PCP: Care Physician,No Primary Status: REG CLI Study: Kidney and Bladder Date of Exam: 12/25/24 Exam# [id number] Ordering Dr: Raven Modi DO PROCEDURE: KIDNEY [...] or suspicious solid renal lesion. Reading Location: [id number] CC: Dr. Raven Modi, DO; No Primary Care Physician Wire Threader: Signed Normal [facility] Laboratory - Chemistry and C hemistry - challengeOrdered By: Raven Espinoza on 12-25-2024 Bilirubin Ql (U) Negative [facility] Glucose Ql (U) Negative [facility] Ketones Ql (U) Negative [facility] pH (U) 5.0 [pH] [facility] Specific gravity (U) [Rel density] 1.030 [facility] Urobilinogen (U) [Mass/Vol] 0.3590993 mg/dL [facility] Laboratory - Hematology and Cell countsOrdered By: Raven Espinoza on 12-25-2024 Hemoglobin Ql (U) Negative [facility] Laboratory - Specimen inform ationOrdered By: Raven Espinoza on 12-25-2024 Clarity (U) Cloudy [facility] Color (U) Straw [facility] Laboratory - UrinalysisOrder ed By: Raven Espinoza on 12-25-2024 Nitrite Ql (U) Negative [facility] Protein Ql (U) 1+ [facility] No Panel InformationOrdered By: Raven Espinoza on 12-25-2024 Urine Leukocytes Negatve [facility] OB Triage Physician Noteon 0 12-25-2024 OB Triage Physician Note [facility] Medical Records Department [address] [place] [address] OB Triage Physician Note 12/25/242022 MR#: [id number] Acct: [id number] Name: QUAN RODGERS KELTON Rep #: [id number] : 2000 24 From: Raven Modi DO PCP: Care Physician,No Primary Status:DEP CLI Y Location: [facility] HPI - General HPI Jun RODGERS, is a 24 y/o @ 26 weeks [...] 1 current occupational status: employed current occupation: [employer] @ [employer] current occupational exposures/hazards: No pets and [...] times per week duration: < 15 minutes/day aly/taoist: None seatbelt use: always do you feel [...] - full term 8lbs 14oz Male epidural [facility] Renate Farfan Delivery Date: 11/06/21 Last Updated [...] 2 oz (more content not included)... Normal [facility] [employer] Office Visit Reporton 12-25-2024 [employer] Office Visit Report [facility] [address], [address] [place] [address] OFFICE VISIT Date of Service: 12/25/24 MR#: [id number] Acct: [id number] Name: QUAN RODGERS KELTON Rep #: [id number] : 2000 Provider: Dr. Raven Brooks DO Age/Sex: 24/F [place] [facility] [place]: Signed Intake Vital Signs 12/20/24 08:29 12/25/24 08:57 12/25/24 08:58 Height 5 ft 11 in 5 ft 11 in 5 ft 11 in Weight: 262 lb 259 lb 4 oz BMI 36.5 36.1 BP 114/78 117/77 Intake Visit Reasons: OB, pelvic pain Music Worker Required: No Is patient in pain?: No [...] 1 current occupational status: employed current occupation: [employer] @ [employer] current occupational exposures/hazards: No pets and [...] times per week duration: < 15 minutes/day aly/taoist: None seatbelt use: always do you feel [...] ob labs. (more content not included)... Normal [facility] Transvaginal w/Preg USon Transvaginal w/Preg US [facility] Imaging Services [address] [place], [place] [address] Transvaginal w/Preg US MR#: [id number] Acct: [id number] Name: QUAN RODGERS KELTON Rep #: [id number] : 2000 F 24 From: Guzman Kidd MD PCP: Care Physician,No Primary Status: REG CLI Study: Transvaginal w/Preg US Date of Exam: 12/25/24 Exam# [id number] Ordering Dr: Raven Modi DO PROCEDURE: TRANSVAGINAL [...] minute. Left ovary not evaluated Reading Location: [id number] CC: Dr. Raven Modi, DO; No Primary Care Physician Wire Threader: Signed Normal [facility] Urine cultureOrdered By: Sophia Espinoza on 12-25-2024 Bacteria identified Cx Nom (U) Positive Abnormal [facility] [employer] Office Visit Reporton 12-20-2024 [employer] Office Visit Report [facility] [address] [place] [address], [address] [place] [address] OFFICE VISIT Date of Service: 12/20/24 MR#: [id number] Acct: [id number] Name: QUAN RODGERS KELTON Rep #: [id number] : 2000 Provider: KEO avalos Age/Sex: 24/F Location: [facility] Status: Signed Intake Vital Signs 09/26/24 13:48 11/21/24 10:42 12/20/24 08:29 Height 5 ft 11 in 5 ft 11 in 5 ft 11 in Weight: 262 lb BMI 36.5 BP 114/78 Intake Visit Reasons: 25wk ob Chief Complaint: 25wk OB Music Worker Required: No Is patient in pain?: No [...] 1 current occupational status: employed current occupation: [employer] @ [employer] current occupational exposures/hazards: No pets and [...] times per week duration: < 15 minutes/day aly/taoist: None seatbelt use: always do you feel [...] 0d 25 (more content not included)... Normal [facility] Urine Cultureon 11-23-2024 URC Below infection level. Mixed Gram Positive Organisms Prospect Count <1000 MIXC Mixed contaminants. Submit a new specimen if indicated. Normal [facility] Comment on above: Performed By: #### L 100.0100, L501.0250, L3890.6006, L509.8002 #### [facility] Laboratory [facility] [place], [address] Laboratory - Chemistry and C hemistry - challengeOrdered By: Renate Handley on 11-21-2024 Bilirubin Ql (U) Small (1+) [facility] Glucose Ql (U) Negative [facility] Ketones Ql (U) Negative [facility] pH (U) 6.0 [pH] [facility] Specific gravity (U) [Rel density] 1.030 [facility] Urobilinogen (U) [Mass/Vol] 0.3041368 mg/dL [facility] Laboratory - Hematology and Cell countsOrdered By: Renate Handley on 05-29-2025 Hemoglobin Ql (U) Negative [facility] Laboratory - Specimen inform ationOrdered By: Renate Handley on 11-21-2024 Clarity (U) Clear [facility] Color (U) Dk Yellow [facility] Laboratory - UrinalysisOrder ed By: Renate Handley on 11-21-2024 Nitrite Ql (U) Negative [facility] Protein Ql (U) Negative [facility] No Panel InformationOrdered By: Renate Handley on 11-21-2024 Urine Leukocytes Negatve [facility] Urine Non-Hemolyzed Blood [facility] [employer] Office Visit Reporton 11-21-2024 [employer] Office Visit Report [facility] [address], [address] [place] [address] OFFICE VISIT Date of Service: 11/21/24 MR#: [id number] Acct: [id number] Name: QUAN RODGERS KELTON Rep #: [id number] : 2000 Provider: Dr. 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 ??-???-???-???- (more content not included)... Normal [facility] Urine cultureOrdered By: Eric Handley on 11-21-2024 Bacteria identified Cx Nom (U) Positive Abnormal [facility] OB Anatomy w/ Transvaginalon 11-12-2024 OB Anatomy w/ Transvaginal [facility] Imaging Services [address] [place], [place] [id number] OB Anatomy w/ Transvaginal MR#: [id number] Acct: [id number] Name: QUAN RODGERS KELTON Rep #: [id number] : 2000 F 24 From: Royce krueger MD PCP: Care Physician,No Primary Status: KOKI CLI Study: OB Anatomy w/ Transvaginal Date of Exam: 11/12 Exam# [id number] Ordering Dr: Geneva Wheeler ASSISTANT BUYER ASSISTANT BUYER -C PROCEDURE: OB ANATOMY W/ TRANSVAGINAL 11/12/2024 [...] 19 weeks and 4 days. Reading Location: [facility] CC: DANIEL Wheeler; No Primary Care Physician Wire Threader: Signed Normal [facility] Urine Cultureon 10-27-2024 URC Mixed Gram Positive Organisms Prospect Count 25,000-50,000 MIXC Mixed contaminants. Submit a new specimen if indicated. Normal [facility] Comment on above: Performed By: #### M 100.2200 ####[facility] [address] [place], [address] Bilirubin Test strip Ql (U)O rdered By: Heraclio Ornelas on 10-25-2024 Bilirubin Ql (U) 1 mg/dL High Negative [facility] Comment on above: COLOR OF URINE MAY A FFECT DIPSTICK RESULTS. Emergency Department Summary on 10-25-2024 Emergency Department Summary [facility] Medical Records Department [address] [place] [address] Emergency Department Summary 10/25/24 MR#: [id number] Acct: [id number] Name: QUAN RODGERS KELTON Rep #: [id number] : 2000 24 From: Heraclio Ornelas DO PCP: Care Physician,No Primary Status:DEP ER Location: ED Patient was seen and examined with physician assistant professor of theater All components of the history and physical [...] in stable condition Supervising attending attestation: Heraclio CARR History of Present Illness Chief Complaint: Nausea/Vomiting [...] abdominal pain or bleeding. No urinary symptoms. [facility] Medical History Chorioamnionitis delivery delivered Home [...] 1 current occupational status: employed current occupation: [employer] @ [employer] current occupational exposures/hazards: No pets and [...] times per week duration: < 15 minutes/day aly/taoist: None seatbelt use: always do you feel [...] 18:55 Temper (more content not included)... Normal [facility] Ketones Test strip Ql (U)Ord ered By: Heraclio Ornelas on 10-25-2024 Ketones Ql (U) 5 mg/dl High Negative [facility] Microscopic analysis of urin e for red blood cells (RBC)Ordered By: Heraclio Ornelas on 10-25-2024 Microscopic analysis of urine for red blood cells (RBC) 0-5 SEEN /hpf 0-5 [facility] Mucus LM Ql (Urine sed)Order ed By: Heraclio Ornelas on 10-25-2024 Mucus Ql (Urine sed) 1+ /hpf [facility] Nitrite Test strip Ql (U)Ord ered By: Heraclio Ornelas on 10-25-2024 Nitrite Ql (U) Negative Negative [facility] Protein Test strip Ql (U)Ord ered By: Heraclio Ornelas on 10-25-2024 Protein Ql (U) 30 mg/dl High Negative [facility] Squamous epithelial cells de tection in urine sediment by light microscopyOrdered By: Heraclio Ornelas on 10-25-2024 Epithelial cells.squamous LM Ql (Urine sed) 0-5 SEEN /hpf 5-10 [facility] Urinalysis, Completeon 10-25 Mucus Ql (Urine sed) 1+ /hpf Normal [facility] Comment on above: Order Comment: MICHAEL FUNKOR TO SPECIFY Performed By: #### L 400.0001 #### [facility] Laboratory [address] [place], [address] BACTERIA 1+ /hpf Normal None Seen [facility] Comment on above: Order Comment: MICHAEL FUNKOR TO SPECIFY Performed By: #### L 400.0001 #### [facility] [address] [place], [address] EPI,SQUAMOUS 0-5 SEEN Normal 5-10 [facility] Comment on above: Order Comment: COLLE CTOR TO SPECIFY Performed By: #### L 400.0001 #### [facility] [address] [place], [address] RBC 0-5 SEEN Normal 0-5 [facility] Comment on above: Order Comment: COLLE CTOR TO SPECIFY Performed By: #### L 400.0001 #### [facility] [address] [place], [address] WBC 0-5 SEEN Normal 0-5 [facility] Comment on above: Order Comment: MICHAEL CTOR TO SPECIFY Performed By: #### L 400.0001 #### [facility] [address] [place], [address] Urine clarityOrdered By: Brandon Ornelas on 10-25-2024 Clarity (U) Sl. Cloudy Clear [facility] Urine color determinationOrd ered By: Heraclio Ornelas on 10-25-2024 Color (U) Yellow Yellow [facility] Urine cultureOrdered By: Macy Garcia on 10-25-2024 Bacteria identified Cx Nom (U) Positive Abnormal [facility] Urine glucose detectionOrder ed By: Heraclio Ornelas on 10-25-2024 Glucose Ql (U) Normal mg/dl Normal [facility] Urine leukocyte esterase det ection by dipstickOrdered By: Heraclio Ornelas on 10-25-2024 Leukocyte esterase Test strip Ql (U) 25 /ul High Negative [facility] Urine pHOrdered By: Heraclio dias on 10-25-2024 pH (U) 5.0 [pH] 5.0 - 8.0 [facility] Urine sediment bacteria coun t by microscopy (number/high power field)Ordered By: Heraclio Ornelas on 10-25-2024 Bacteria LM.HPF (Urine sed) [#/Area] 1 /[HPF] None Seen [facility] Urine specific gravity measu rementOrdered By: Heraclio Ornelas on 10-25-2024 Specific gravity (U) [Rel density] 1.025 1.002-1.030 [facility] Urine urobilinogen measureme ntOrdered By: Heraclio Ornelas on 10-25-2024 Urobilinogen Ql (U) 1 mg/dl High Normal [facility] White blood cell countOrdere d By: Heraclio Ornelas on 10-25-2024 White blood cell count 0-5 SEEN /hpf 0-5 [facility] [employer] Office Visit Reporton 10-21-2024 [employer] Office Visit Report [facility] [address], [address] [place] [address] OFFICE VISIT Date of Service: 10/21/24 MR#: [id number] Acct: [id number] Name: QUAN RODGERS Rep #: [id number] : 2000 Provider: DANIEL chaparro Age/Sex: 24/F [place] [facility] [place]: Signed Intake Vital Signs 08/29/24 11:11 09/26/24 13:48 10/21/24 08:39 Height 5 ft 10 in 5 ft 11 in 5 ft 11 in Weight: 258 lb 2 oz BMI 36.0 BP 115/71 Intake Visit Reasons: 17 wk ob Music Worker Required: No Is patient in pain?: No [...] occupational status: employed 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 Renate Handley Max Delivery Date: 11/06/21 Last [...] -???-???-???-???-? ??-???-???-???-??? (more content not included)... Normal [facility] Miscellaneous procedureOrder ed By: Raven Espinoza on 10-02-2024 Miscellaneous Test Comment SEE SCANNED REPORT [facility] NATERAon 10-02-2024 NATURA SEE SCANNED REPORT Normal [facility] Comment on above: Performed By: #### L 900.0098 ####[facility] [address] [place], [address] Laboratory - Chemistry and C hemistry - challengeOrdered By: Raven Espinoza on 09-26-2024 Glucose Ql (U) Negative [facility] Laboratory - UrinalysisOrder ed By: Raven Espinoza on 09-26-2024 Protein Ql (U) Negative [facility] [employer] Office Visit Reporton 09-26-2024 [employer] Office Visit Report [facility] [address], [address] [place] [address] OFFICE VISIT Date of Service: 09/26/24 MR#: [id number] Acct: [id number] Name: QUAN RODGERS KELTON Rep #: [id number] : 2000 Provider: Dr. Raven Brooks DO Age/Sex: 24/F Location: [facility] Status: Signed Intake Vital Signs 06/16/24 20:27 09/04/24 10:55 09/26/24 13:47 09/26/24 13:48 Height 5 ft 10 in 5 ft 11 in 5 ft 11 in 5 ft 11 in Weight: 258 lb BMI 35.9 BP 123/73 H Intake Visit Reasons: 13wk OB Music Worker Required: No Is patient in pain?: No [...] 1 current occupational status: employed current occupation: [employer] @ [employer] current occupational exposures/hazards: No pets and [...] times per week duration: < 15 minutes/day aly/taoist: None seatbelt use: always do you feel [...] - full term 8lbs 14oz Male epidural [facility] Renate Farfan Delivery Date: 11/06/21 Last Updated [...] labs. ACOG (more content not included)... Normal [facility] Laboratory - Chemistry and C hemistry - challengeOrdered By: Raven Espinoza on 09-04-2024 Glucose Ql (U) Negative [facility] Laboratory - UrinalysisOrder ed By: Raven Espinoza on 09-04-2024 Protein Ql (U) Negative [facility] [employer] Office Visit Reporton 09-04-2024 [employer] Office Visit Report [facility] [address], [address] [place] [address] OFFICE VISIT Date of Service: 09/04/24 MR#: [id number] Acct: [id number] Name: QUAN RODGERS KELTON Rep #: [id number] : 2000 Provider: Dr. 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 Normal [facility] PAP I-G w/rfx hrHPV-Aptimaon 09-04-2024 ADEQ Comment Normal . [facility] Comment on above: Order Comment: Speci men Comment: [id number] Comment: Source.............CervixSpecimen Comment: Other..............Specimen Comment: No. of containers..01 ThinPrep Vial Result Comment: Sati sfactory for evaluation. Endocervical and/or squamous metaplastic cells (endocervical component) are present. Performed By: #### L 7400.0353, L3890.6102, L509.8002, BTS, M100.2200, L3890.6006, L100.0100, L501.9985, L3890.6301, L7000.1800, L509.4006 ####[facility] [address] [place], [place], [id number] COMM . Normal . [facility] Comment on above: Order Comment: Speci men Comment: [id number] Comment: Source.............CervixSpecimen Comment: Other..............Specimen Comment: No. of containers..01 ThinPrep Vial Performed By: #### L 7400.0353, L3890.6102, L509.8002, BTS, M100.2200, L3890.6006, L100.0100, L501.9985, L3890.6301, L7000.1800, L509.4006 ####[facility] [address] [place], [place], [id number] COMMENT Comment Normal . [facility] Comment on above: Order Comment: Speci men Comment: [id number] Comment: Source.............CervixSpecimen Comment: Other..............Specimen Comment: No. of containers..01 ThinPrep Vial Result Comment: This liquid based ThinPrep(R) pap test was screened with the use of an image guided system. Performed By: #### L 7400.0353, L3890.6102, L509.8002, BTS, M100.2200, L3890.6006, L100.0100, L501.9985, L3890.6301, L7000.1800, L509.4006 ####[facility] [address] [place], [place], [id number] DIAG Comment Normal . [facility] Comment on above: Order Comment: Speci men Comment: [id number] Comment: Source.............CervixSpecimen Comment: Other..............Specimen Comment: No. of containers..01 ThinPrep Vial Result Comment: NEGA TIVE FOR INTRAEPITHELIAL LESION OR MALIGNANCY. THIS SPECIMEN WAS RESCREENED PART OF OUR OFFENDER JOB RETENTION SPECIALIST PROGRAM. Performed By: #### L 7400.0353, L3890.6102, L509.8002, BTS, M100.2200, L3890.6006, L100.0100, L501.9985, L3890.6301, L7000.1800, L509.4006 ####[facility] [address] [place], [place], [id number] HPV RFLX Comment Normal . [facility] Comment on above: Order Comment: Speci men Comment: [id number] Comment: Source.............CervixSpecimen Comment: Other..............Specimen Comment: No. of containers..01 ThinPrep Vial Result Comment: The HPV DNA reflex criteria were not met with this specimen result therefore, no HPV testing was performed. Performed at: [address] [id number] Environmental Compliance Manager: Sheryl Melendez MD, Phone: [phone] Performed By: #### L 7400.0353, L3890.6102, L509.8002, BTS, M100.2200, L3890.6006, L100.0100, L501.9985, L3890.6301, L7000.1800, L509.4006 ####[facility] [address] [place], [address] PAPSMR Comment Normal . [facility] Comment on above: Order Comment: Speci men Comment: [id number] Comment: Source.............CervixSpecimen Comment: Other..............Specimen Comment: No. of containers..01 ThinPrep Vial Result Comment: The Pap smear is a screening test designed to aid in the detection of premalignant and malignant conditions of the uterine cervix. It is not a diagnostic procedure and should not be used as the sole means of detecting cervical cancer. Both false-positive and false-negative reports do occur. Performed By: #### L 7400.0353, L3890.6102, L509.8002, BTS, M100.2200, L3890.6006, L100.0100, L501.9985, L3890.6301, L7000.1800, L509.4006 ####[facility] [address] [place], [address] PERFORM Comment Normal . [facility] Comment on above: Order Comment: Speci men Comment: [id number] Comment: Source.............CervixSpecimen Comment: Other..............Specimen Comment: No. of containers..01 ThinPrep Vial Result Comment: Selina Burks, Roll Table Operator (ASCP) Performed By: #### L 7400.0353, L3890.6102, L509.8002, BTS, M100.2200, L3890.6006, L100.0100, L501.9985, L3890.6301, L7000.1800, L509.4006 ####[facility] [address] [place], [place], [phone] QC REV Comment Normal . [facility] Comment on above: Order Comment: Speci men Comment: [id number] Comment: Source.............CervixSpecimen Comment: Other..............Specimen Comment: No. of containers..01 ThinPrep Vial Result Comment: Lala Rockwell Roll Table Operator (ASCP) Performed By: #### L 7400.0353, L3890.6102, L509.8002, BTS, M100.2200, L3890.6006, L100.0100, L501.9985, L3890.6301, L7000.1800, L509.4006 ####[facility] [address] [place], [place], [phone] Chlamydia/GC DEVENDRA aptimaon CHLAMY,NUC ACID Negative Normal Negative [facility] Comment on above: Performed By: #### L 7400.0353, L3890.6102, L509.8002, BTS, M100.2200, L3890.6006, L100.0100, L501.9985, L3890.6301, L7000.1800, L509.4006 ####[facility] [address] [place], [place], [phone] GC BY NUC ACID Negative Normal Negative [facility] Comment on above: Result Comment: Perf ormed at: =G - [facility] [address] [id number] Environmental Compliance Manager: Sheryl Melendez MD, Phone: [phone] Performed By: #### L 7400.0353, L3890.6102, L509.8002, BTS, M100.2200, L3890.6006, L100.0100, L501.9985, L3890.6301, L7000.1800, L509.4006 ####[facility] [address] [place], [place], [phone] Urine Cultureon 08-31-2024 URC Mixed Gram Positive Organisms Prospect Count 25,000-50,000 MIXC Mixed contaminants. Submit a new specimen if indicated. Normal [facility] Comment on above: Performed By: #### L 400.0001, M100.2200 #### [facility] [address] [place], [place], [phone] URC Mixed Gram Positive Organisms Prospect Count 11,000-25,000 MIXC Mixed contaminants. Submit a new specimen if indicated. Normal [facility] Comment on above: Performed By: #### L 7400.0353, L3890.6102, L509.8002, BTS, M100.2200, L3890.6006, L100.0100, L501.9985, L3890.6301, L7000.1800, L509.4006 ####[facility] [address] [place], [address] Amorphous sediment detection in urine sediment by light microscopyOrdered By: Christiano Villafuerte on 08-30-2024 Amorphous sediment LM Ql (Urine sed) 1+ URATE [facility] Bacteria LM.HPF (Urine sed) [#/Area]Ordered By: Christiano Villafuerte on 08-30-2024 Urine Bacteria RARE /hpf None Seen [facility] Bilirubin Test strip Ql (U)O rdered By: Christiano Villafuerte on 08-30-2024 Bilirubin Ql (U) Negative Negative [facility] Emergency Department Summary on 08-30-2024 Emergency Department Summary [facility] Medical Records Department [address] [place] [address] Emergency Department Summary 08/30/24 MR#: [id number] Acct: [id number] Name: QUAN RODGERS KELTON Rep #: [id number] : 2000 24 From: Christiano Villafuerte MD [...] had a checkup in the office and multiple tube winding machine operator did an ultrasound and told her she [...] 1 current occupational status: employed 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 Normal [facility] Epithelial cells.squamous LM Ql (Urine sed)Ordered By: Christiano Villafuerte on 08-30-2024 Epithelial cells.squamous LM.HPF (Urine sed) [#/Area] 10 /[HPF] 5-10 [facility] Glucose Ql (U)Ordered By: Riley Villafuerte on 08-30-2024 Urine Glucose (UA) Normal mg/dl Normal [facility] HCG ( test) QlOrder ed By: Christiano Villafuerte on 08-30-2024 Human Chorionic Gonadotropin, Quant [id number] mIU/mL High <9 [facility] Comment on above: Gestational Age0.2-1 Week: 5-50 mIU/mL1-2 Weeks: 50-500 mIU/mL2-3 Weeks: 100-5000 mIU/mL3-4 Weeks: 500-10,000 mIU/mL4-5 Weeks:1000-50,000 mIU/mL5-6 Weeks: 10,000-100,000 mIU/mL6-8 Weeks: 15,000-200,000 mIU/mL2-3 Months:10,000-100,000 mIU/mL Ketones Test strip Ql (U)Ord ered By: Christiano Villafuerte on 08-30-2024 Ketones Ql (U) Negative Negative [facility] Microscopic analysis of urin e for red blood cells (RBC)Ordered By: Christiano Villafuerte on 08-30-2024 Microscopic analysis of urine for red blood cells (RBC) 0 SEEN /hpf 0-5 [facility] Urine RBC 0 SEEN /hpf 0-5 [facility] Mucus LM Ql (Urine sed)Order ed By: Christiano Villafuerte on 08-30-2024 Mucus Ql (Urine sed) 0 SEEN /hpf [facility] Nitrite Test strip Ql (U)Ord ered By: Christiano Villafuerte on 08-30-2024 Nitrite Ql (U) Negative Negative [facility] Protein Test strip Ql (U)Ord ered By: Christiano Villafuerte on 08-30-2024 Protein Ql (U) 30 mg/dl High Negative [facility] Serum human chorionic gonado tropin detection for pregnancyOrdered By: Christiano Villafuerte on 08-30-2024 HCG ( test) Ql 798843 mIU/mL High <9 [facility] Comment on above: Gestational Age0.2-1 Week: 5-50 mIU/mL1-2 Weeks: 50-500 mIU/mL2-3 Weeks: 100-5000 mIU/mL3-4 Weeks: 500-10,000 mIU/mL4-5 Weeks:1000-50,000 mIU/mL5-6 Weeks: 10,000-100,000 mIU/mL6-8 Weeks: 15,000-200,000 mIU/mL2-3 Months:10,000-100,000 mIU/mL Squamous epithelial cells de tection in urine sediment by light microscopyOrdered By: Christiano Villafuerte on 08-30-2024 Epithelial cells.squamous LM Ql (Urine sed) 10-25 SEEN /hpf 5-10 [facility] Transvaginal w/Preg USon Transvaginal w/Preg US [facility] [address] [place], [place] [address] Transvaginal w/Preg US MR#: [id number] Acct: [id number] Name: QUAN RODGERS KELTON Rep #: [id number] : 2000 F 24 From: Lukas Lynn MD PCP: Care Physician,No Primary Status: REG ER Study: Transvaginal w/Preg US Date of Exam: 08/30/24 Exam# [id number] Ordering Dr: Christiano Villafuerte MD PROCEDURE: TRANSVAGINAL [...] tones 177 beats per minute.. Reading Location: [id number] CC: Dr. Christiano Villafuerte MD; No Primary Care Physician Wire Threader: Signed Normal [facility] Urinalysis, Completeon 08-30 AMORPHOUS 1+ URATE Normal [facility] Comment on above: Order Comment: CLEAN CATCH Performed By: #### L 400.0001 ####[facility] [address] [place], [address] BACTERIA RARE Normal None Seen [facility] Comment on above: Order Comment: CLEAN CATCH Performed By: #### L 400.0001 ####[facility] [address] [place], [address] EPI,SQUAMOUS 10-25 SEEN Normal 5-10 [facility] Comment on above: Order Comment: CLEAN CATCH Performed By: #### L 400.0001 ####[facility] [address] [place], [address] RBC 0 SEEN Normal 0-5 [facility] Comment on above: Order Comment: CLEAN CATCH Performed By: #### L 400.0001 ####[facility] [address] [place], [address] WBC 5-10 SEEN Normal 0-5 [facility] Comment on above: Order Comment: CLEAN CATCH Performed By: #### L 400.0001 ####[facility] [address] [place], [address] Mucus Ql (Urine sed) 0 SEEN Normal [facility] Comment on above: Order Comment: CLEAN CATCH Performed By: #### L 400.0001 ####[facility] [address] [place], [address] Urine blood detectionOrdered By: Christiano Villafuerte on 08-30-2024 Urine Occult Blood Negative Negative [facility] Urine clarityOrdered By: Kevin Villafuerte on 08-30-2024 Clarity (U) Cloudy Clear [facility] Urine color determinationOrd ered By: Christiano Villafuerte on 08-30-2024 Color (U) Yellow Yellow [facility] Urine cultureOrdered By: Kevin Villafuerte on 08-30-2024 Bacteria identified Cx Nom (U) Positive Abnormal [facility] Urine glucose detectionOrder ed By: Christiano Villafuerte on 08-30-2024 Glucose Ql (U) Normal mg/dl Normal [facility] Urine leukocyte esterase det ection by dipstickOrdered By: Christiano Villafuerte on 08-30-2024 Leukocyte esterase Test strip Ql (U) 100 /ul High Negative [facility] Urine pHOrdered By: Christiano Villafuerte on 08-30-2024 pH (U) 6.0 [pH] 5.0 - 8.0 [facility] Urine sediment bacteria coun t by microscopy (number/high power field)Ordered By: Christiano Villafuerte on 08-30-2024 Bacteria LM.HPF (Urine sed) [#/Area] RARE /hpf None Seen [facility] Urine specific gravity measu rementOrdered By: Christiano Villafuerte on 08-30-2024 Specific gravity (U) [Rel density] 1.025 1.002-1.030 [facility] Urine urobilinogen measureme ntOrdered By: Christiano Villafuerte on 08-30-2024 Urobilinogen Ql (U) 1 mg/dl High Normal [facility] Urobilinogen Ql (U)Ordered B y: Christiano Villafuerte on 08-30-2024 Urobilinogen (U) [Mass/Vol] 1 mg/dL High Normal [facility] White blood cell countOrdere d By: Christiano Villafuerte on 08-30-2024 Urine WBC 5-10 SEEN /hpf 0-5 [facility] White blood cell count 5-10 SEEN /hpf 0-5 [facility] hCG Titer Quant., Serumon HCG QUANT. 811982 mIU/mL High <9 non-preg [facility] Comment on above: Result Comment: Gest ational Age 0.2-1 Week: 5-50 mIU/mL 1-2 Weeks: 50-500 mIU/mL 2-3 Weeks: 100-5000 mIU/mL 3-4 Weeks: 500-10,000 mIU/mL 4-5 Weeks:1000-50,000 mIU/mL 5-6 Weeks: 10,000-100,000 mIU/mL 6-8 Weeks: 15,000-200,000 mIU/mL 2-3 Months:10,000-100,000 mIU/mL Performed By: #### L 100.0100, L501.0250, L3890.6006, L509.8002 #### [facility] [address] [place], [place], [address] Absolute lymphocyte countOrd ered By: Shell Curry on 08-29-2024 Lymphocytes Auto (Unsp spec) [#/Vol] 2.01 10*3/uL 0.83-4.51 [facility] Absolute neutrophil countOrd ered By: Shell Curry on 08-29-2024 Neutrophils (Bld) [#/Vol] 6.1 10*3/uL 2.0-7.7 [facility] Automated lymphocyte count a s percentage of total leukocytesOrdered By: Shell Curry on 08-29-2024 Lymphocytes/100 WBC Auto (Unsp spec) 22.5 % 19-41 [facility] Basophil percentageOrdered B y: Shell Curry on 08-29-2024 Basophils/100 WBC (Bld) 0.6 % 0-1 [facility] C. trachomatis rRNA DEVENDRA+prob e Ql (Unsp spec)Ordered By: Shell Curry on 08-29-2024 Chlamydia DNA (DEVENDRA) Negative Negative [facility] CBC W/Diff, Automatedon Absolute Lymph 2.01 X10 3/uL Normal 0.83-4.51 [facility] Comment on above: Performed By: #### L 7400.0353, L3890.6102, L509.8002, BTS, M100.2200, L3890.6006, L100.0100, L501.9985, L3890.6301, L7000.1800, L509.4006 ####[facility] [address] [place], [address] Absolute Neut 6.1 X10 3/uL Normal 2.0-7.7 [facility] Comment on above: Performed By: #### L 7400.0353, L3890.6102, L509.8002, BTS, M100.2200, L3890.6006, L100.0100, L501.9985, L3890.6301, L7000.1800, L509.4006 ####[facility] [address] [place], [place], [phone]) Basophils/100 WBC (Bld) 0.6 % Normal 0-1 [facility] Comment on above: Performed By: #### L 7400.0353, L3890.6102, L509.8002, BTS, M100.2200, L3890.6006, L100.0100, L501.9985, L3890.6301, L7000.1800, L509.4006 ####[facility] [address] [place], [address] Eosinophils/100 WBC (Bld) 0.8 % Normal 0-5 [facility] Comment on above: Performed By: #### L 7400.0353, L3890.6102, L509.8002, BTS, M100.2200, L3890.6006, L100.0100, L501.9985, L3890.6301, L7000.1800, L509.4006 ####[facility] [address] [place], [address] Erythrocyte distribution width (RBC) [Ratio] 11.9 % Normal 11.6-14.6 [facility] Comment on above: Performed By: #### L 7400.0353, L3890.6102, L509.8002, BTS, M100.2200, L3890.6006, L100.0100, L501.9985, L3890.6301, L7000.1800, L509.4006 ####[facility] [address] [place], [address] Hematocrit (Bld) [Volume fraction] 38.2 % Normal 37-47 [facility] Comment on above: Performed By: #### L 7400.0353, L3890.6102, L509.8002, BTS, M100.2200, L3890.6006, L100.0100, L501.9985, L3890.6301, L7000.1800, L509.4006 ####[facility] [address] [facility] [place], [place], [address] Hemoglobin (Bld) [Mass/Vol] 13.0 g/dL Normal 12.0-15.0 [facility] Comment on above: Performed By: #### L 7400.0353, L3890.6102, L509.8002, BTS, M100.2200, L3890.6006, L100.0100, L501.9985, L3890.6301, L7000.1800, L509.4006 ####[facility] [address] [place], [place], [phone](274) IG% 0.400 Normal 0.0-0.9 [facility] Comment on above: Result Comment: IG% - Immature Granulocytes (promyelocytes, myelocytes and metamyelocytes) > 1% indicates that a LEFT SHIFT is Present. Performed By: #### L 7400.0353, L3890.6102, L509.8002, BTS, M100.2200, L3890.6006, L100.0100, L501.9985, L3890.6301, L7000.1800, L509.4006 ####[facility] [address] [place], [address] Lymphocytes/100 WBC (Bld) 22.5 % Normal 19-41 [facility] Comment on above: Performed By: #### L 7400.0353, L3890.6102, L509.8002, BTS, M100.2200, L3890.6006, L100.0100, L501.9985, L3890.6301, L7000.1800, L509.4006 ####[facility] [address] [place], [address] MCH (RBC) [Entitic mass] 30.2 pg Normal 27.0-32.0 [facility] Comment on above: Performed By: #### L 7400.0353, L3890.6102, L509.8002, BTS, M100.2200, L3890.6006, L100.0100, L501.9985, L3890.6301, L7000.1800, L509.4006 ####[facility] [address] [place], [address] MCHC (RBC) [Mass/Vol] 34.0 g/dL Normal 32-36 [facility] Comment on above: Performed By: #### L 7400.0353, L3890.6102, L509.8002, BTS, M100.2200, L3890.6006, L100.0100, L501.9985, L3890.6301, L7000.1800, L509.4006 ####[facility] [address] [place], [address] MCV (RBC) [Entitic vol] 88.6 fL Normal 81-99 [facility] Comment on above: Performed By: #### L 7400.0353, L3890.6102, L509.8002, BTS, M100.2200, L3890.6006, L100.0100, L501.9985, L3890.6301, L7000.1800, L509.4006 ####[facility] [address] [place], [address] Monocytes/100 WBC (Bld) 7.9 % Normal 0-10 [facility] Comment on above: Performed By: #### L 7400.0353, L3890.6102, L509.8002, BTS, M100.2200, L3890.6006, L100.0100, L501.9985, L3890.6301, L7000.1800, L509.4006 ####[facility] [address] [facility] [place], [address] Neutrophils/100 WBC (Bld) 67.8 % Normal 47-70 [facility] Comment on above: Performed By: #### L 7400.0353, L3890.6102, L509.8002, BTS, M100.2200, L3890.6006, L100.0100, L501.9985, L3890.6301, L7000.1800, L509.4006 ####[facility] [address] [facility] [place], [address] Nucleated RBC (Bld) [#/Vol] 0 10*3/uL Normal 0-5 [facility] Comment on above: Performed By: #### L 7400.0353, L3890.6102, L509.8002, BTS, M100.2200, L3890.6006, L100.0100, L501.9985, L3890.6301, L7000.1800, L509.4006 ####[facility] [address] [facility] [place], [address] Platelet mean volume (Bld) [Entitic vol] 11.1 fL Normal 6.2-12.0 [facility] Comment on above: Performed By: #### L 7400.0353, L3890.6102, L509.8002, BTS, M100.2200, L3890.6006, L100.0100, L501.9985, L3890.6301, L7000.1800, L509.4006 ####[facility] [address] [place], [address] Platelets (Bld) [#/Vol] 254 10*3/uL Normal 150-450 [facility] Comment on above: Performed By: #### L 7400.0353, L3890.6102, L509.8002, BTS, M100.2200, L3890.6006, L100.0100, L501.9985, L3890.6301, L7000.1800, L509.4006 ####[facility] [address] [place], [place], [phone](148) RBC (Bld) [#/Vol] 4.31 10*6/uL Normal 4.2-5.4 [facility] Comment on above: Performed By: #### L 7400.0353, L3890.6102, L509.8002, BTS, M100.2200, L3890.6006, L100.0100, L501.9985, L3890.6301, L7000.1800, L509.4006 ####[facility] [address] [place], [address] RDW SD 38.4 fl Normal 35.1-43.9 [facility] Comment on above: Performed By: #### L 7400.0353, L3890.6102, L509.8002, BTS, M100.2200, L3890.6006, L100.0100, L501.9985, L3890.6301, L7000.1800, L509.4006 ####[facility] [address] [place], [place], [phone]62) WBC (Bld) [#/Vol] 8.9 10*3/uL Normal 4.4-11.0 [facility] Comment on above: Performed By: #### L 7400.0353, L3890.6102, L509.8002, BTS, M100.2200, L3890.6006, L100.0100, L501.9985, L3890.6301, L7000.1800, L509.4006 ####[facility] [address] [place], [address] Cervical or vagninal specime n microscopic examination by cytology stain (reported asOrdered By: Shell Curry on 08-29-2024 Cytology report Cyto stain Doc (Cvx/Vag) Comment . [facility] Comment on above: The Pap smear is [...] rRNA DEVENDRA+probe Ql (Unsp spec) Negative Negative [facility] Hospital Receptionist Cyto stain Nom (C vx/Vag) [ID]Ordered By: Shell Curry on 08-29-2024 Pap Smear Performed By Comment . [facility] Comment on above: Selina Burks, Cytotec hnologist (ASCP) Cytology report Cyto stain D oc (Cvx/Vag)Ordered By: Shell Curry on 08-29-2024 Thin Prep Pap Smear Comment . [facility] Comment on above: The Pap smear is a s creening test designed to aid in thedetection of premalignant and malignant conditions of theuterine cervix. It is not a diagnostic procedure andshould not be used as the sole means of detecting cervicalcancer. Both false-positive and false-negative reports dooccur. Eosinophil percentageOrdered By: Shell Curry on 08-29-2024 Eosinophils/100 WBC (Bld) 0.8 % 0-5 [facility] Erythrocyte distribution wid th ratioOrdered By: Shell Curry on 08-29-2024 Erythrocyte distribution width (RBC) [Ratio] 11.9 % 11.6-14.6 [facility] Erythrocyte distribution wid th standard deviationOrdered By: Shell Curry on 08-29-2024 Erythrocyte distribution width (RBC) [Entitic vol] 38.4 fL 35.1-43.9 [facility] Erythrocyte distribution width (RBC) [Ratio] 38.4 fl 35.1-43.9 [facility] HBV surface Ag Ql (S)Ordered By: Shell Curry on 08-29-2024 Hepatitis B Surface Antigen Non-Reactive Nonreactive [facility] Comment on above: Reactive: Presumptiv e evidence of HBV. Repeatedly reactive samples must be confirmed using a neutralization test ([facility] HBsAg Confirmatory Test)Non-Reactive: HBsAg not detected; does not exclude the possibility of exposure to HBV Hematocrit Auto (Bld) [Volum e fraction]Ordered By: Shell Curry on 08-29-2024 Hematocrit (Bld) [Volume fraction] 38.2 % 37-47 [facility] Hemoglobin A1con 08-29-2024 HbA1c (Bld) [Mass fraction] 5.1 % Low <=5.6 [facility] Comment on above: Performed By: #### L 7400.0353, L3890.6102, L509.8002, BTS, M100.2200, L3890.6006, L100.0100, L501.9985, L3890.6301, L7000.1800, L509.4006 ####[facility] [address] [place], [place], [id number] Hemoglobin A1c percentageOrd ered By: Shell Curry on 08-29-2024 HbA1c (Bld) [Mass fraction] 5.1 % Low >5.7 [facility] Hemoglobin measurementOrdere d By: Shell Curry on 08-29-2024 Hemoglobin (Bld) [Mass/Vol] 13.0 g/dL 12.0-15.0 [facility] Hepatitis C antibodyOrdered By: Shell Curry on 08-29-2024 Hepatitis C Antibody Non-Reactive Nonreactive [facility] Comment on above: Reactive: Presumptiv e evidence of antibodies to HCV. Follow CDC recommendations for supplemental testing.Non-Reactive: Antibodies to HCV were not detected; does not exclude the possibility of exposure to HCVReactive Results are presumptive evidence of antibodies to HCV. Follow CDC recommendations for supplemental testing.Order confirmation testing: HCV Quant by PCR testing - HCVPCR #[id number] Non Reactive: < 0.8 Equivocal: >/= 0.8 to < 1.0 Reactive: >/= 1.0The CDC requires that a reactive/equivocal HCV antibody result be sent out for confirmation. HCV Quant by PCR testing. Image-guided ThinPrep PapOrd ered By: Shell Curry on 08-29-2024 Pap Smear Note Comment . [facility] Comment on above: This liquid based Th inPrep(R) pap test was screened withthe use of an image guided system. Image-guided liquid-based Pa pOrdered By: Shell Curry on 08-29-2024 Pap Smear Diagnosis Comment . [facility] Comment on above: NEGATIVE FOR INTRAEP ITHELIAL LESION OR MALIGNANCY.THIS SPECIMEN WAS RESCREENED PART OF OUR OFFENDER JOB RETENTION SPECIALIST PROGRAM. Image-guided liquid-based ce rvical Pap w high-risk HPV+reflex to HPV 16+18Ordered By: Shell Curry on 08-29-2024 Human Papillomavirus Screen Comment . [facility] Comment on above: The HPV DNA reflex c riteria were not met with this specimenresult therefore, no HPV testing was performed.Performed at: [facility] [place] [id number] Director: Sheryl Melendez MD, Phone: [phone] Immature granulocytes/100 WB C Auto (Bld)Ordered By: Shell Curry on 08-29-2024 Immature granulocytes/100 WBC (Bld) 0.400 % 0.0-0.9 [facility] Comment on above: IG% - Immature Granu locytes (promyelocytes, myelocytes and metamyelocytes) > 1% indicates that a LEFT SHIFT is Present. L3890.6006on 08-29-2024 HIV Non-Reactive Normal Nonreactive [facility] Comment on above: Result Comment: Non- Reactive Reactive Repeatedly reactive samples must be confirmed according to CDC recommended confirmatory algorithms. The subresults for either HIVAG or AHIV can be used as an aid in the selection of the confirmation algorithm for reactive samples. Send out specimens with Reactive results to [facility] for confirmation. Order the HIV antibody detection and differentiation: lc#[id number] Performed By: #### L 7400.0353, L3890.6102, L509.8002, BTS, M100.2200, L3890.6006, L100.0100, L501.9985, L3890.6301, L7000.1800, L509.4006 ####[facility] [address] [facility]. [place], [place], [address] L3890.6102on 08-29-2024 HEP B Surf Ag Non-Reactive Normal Nonreactive [facility] Comment on above: Result Comment: Reac tive: Presumptive evidence of HBV. Repeatedly reactive samples must be confirmed using a neutralization test (pbsis HBsAg Confirmatory Test) Non-Reactive: HBsAg not detected; does not exclude the possibility of exposure to HBV Performed By: #### L 7400.0353, L3890.6102, L509.8002, BTS, M100.2200, L3890.6006, L100.0100, L501.9985, L3890.6301, L7000.1800, L509.4006 ####[facility] [address] [facility] [place], [place], [address] L3890.6301on 08-29-2024 Hepatitis C Ab Non-Reactive Normal Nonreactive [facility] Comment on above: Result Comment: Reac tive: Presumptive evidence of antibodies to HCV. Follow CDC recommendations for supplemental testing. Non-Reactive: Antibodies to HCV were not detected; does not exclude the possibility of exposure to HCV Reactive Results are presumptive evidence of antibodies to HCV. Follow CDC recommendations for supplemental testing. Order confirmation testing: HCV Quant by PCR testing - HCVPCR #[id number] Non Reactive: < 0.8 Equivocal: >/= 0.8 to < 1.0 Reactive: >/= 1.0 The CDC requires that a reactive/equivocal HCV antibody result be sent out for confirmation. HCV Quant by PCR testing. Performed By: #### L 7400.0353, L3890.6102, L509.8002, BTS, M100.2200, L3890.6006, L100.0100, L501.9985, L3890.6301, L7000.1800, L509.4006 ####[facility] [address] [place], [place], [id number] L509.4006on 08-29-2024 Rubella IgG REAC Normal Nonreactive [facility] Comment on above: Result Comment: Anti body Result: Interpretation Non-Reactive: Non-Immune Reactive: Immune The following results were obtained with the [employer]ys Rubella IgG assay. Results from assays of other manufacturers cannot be used interchangeably. Performed By: #### L 7400.0353, L3890.6102, L509.8002, BTS, M100.2200, L3890.6006, L100.0100, L501.9985, L3890.6301, L7000.1800, L509.4006 ####[facility] [address] [place], [place], [id number] L509.8002on 08-29-2024 Syphilis Abs Non-Reactive Normal Nonreactive [facility] Comment on above: Performed By: #### L 7400.0353, L3890.6102, L509.8002, BTS, M100.2200, L3890.6006, L100.0100, L501.9985, L3890.6301, L7000.1800, L509.4006 ####[facility] [address] [place], [place], [id number] Laboratory - CytologyOrdered By: Shell Curry on 08-29-2024 Hospital Receptionist Cyto stain Nom (Cvx/Vag) [ID] Comment . [facility] Comment on above: Selina Burks, Cytotec hnologist (ASC) Laboratory - Microbiology an d Antimicrobial susceptibilityOrdered By: Shell Curry on 08-29-2024 HBV surface Ag Ql (S) Non-Reactive Nonreactive [facility] Comment on above: Reactive: Presumptiv e evidence of HBV. Repeatedly reactive samples must be confirmed using a neutralization test (Elecsys HBsAg Confirmatory Test)Non-Reactive: HBsAg not detected; does not exclude the possibility of exposure to HBV Laboratory - Miscellaneous t estsOrdered By: Shell Curry on 08-29-2024 Service comment (Unsp spec) [Interp] . . [facility] Lymphocytes Auto (Unsp spec) [#/Vol]Ordered By: Shell Curry on 08-29-2024 Lymphocytes (Bld) [#/Vol] 2.01 10*3/uL 0.83-4.51 [facility] Lymphocytes/100 WBC Auto (Un sp spec)Ordered By: Shell Curry on 08-29-2024 Lymphocytes/100 WBC (Bld) 22.5 % 19-41 [facility] MCV (mean corpuscular volume ) determinationOrdered By: Shell Curry on 08-29-2024 MCV (RBC) [Entitic vol] 88.6 fL 81-99 [facility] Mean corpuscular hemoglobin (MCH) determinationOrdered By: Shell Curry on 08-29-2024 MCH (RBC) [Entitic mass] 30.2 pg 27.0-32.0 [facility] Mean corpuscular hemoglobin concentration (MCHC) determinationOrdered By: Shell Curry on 08-29-2024 MCHC (RBC) [Mass/Vol] 34.0 g/dL 32-36 [facility] Mean platelet volume determi nationOrdered By: Shell Curry on 08-29-2024 Platelet mean volume (Bld) [Entitic vol] 11.1 fL 6.2-12.0 [facility] Monocyte percentageOrdered B y: Shell Curry on 08-29-2024 Monocytes/100 WBC (Bld) 7.9 % 0-10 [facility] Neisseria gonorrhoeae nuclei c acid detection by amplified probe techniqueOrdered By: Shell Curry on 08-29-2024 N. gonorrhoeae DNA DEVENDRA+probe Ql (Unsp spec) Negative Negative [facility] Comment on above: Performed at: =[address] [id number] Director: Sheryl Melendez MD, Phone: [phone] Neutrophil percentageOrdered By: Shell Curry on 08-29-2024 Neutrophils/100 WBC (Bld) 67.8 % 47-70 [facility] No Panel InformationOrdered By: Shell Curry on 08-29-2024 HIV (1&2) Antibody Non-Reactive Nonreactive [facility] Comment on above: Non-ReactiveReactive Repeatedly reactive samples must be confirmed according to CDC recommended confirmatory algorithms. The subresults for either HIVAG or AHIV can be used as an aid in the selection of the confirmation algorithm for reactive samples.Send out specimens with Reactive results to [facility] for confirmation.Order the HIV antibody detection and differentiation: #[id number] Pap Smear QC Review Comment . [facility] Comment on above: Lala Rockwell, Cytot echnologist (ASCP) Pap Smear Specimen Adequacy Comment . [facility] Comment on above: Satisfactory for anna luation. Endocervical and/or squamous metaplasticcells (endocervical component) are present. Nucleated red blood cell per centageOrdered By: Shell Curry on 08-29-2024 Nucleated RBC/100 WBC (Bld) [Ratio] 0 % 0-5 [facility] [employer] Office Visit Reporton 08-29-2024 [employer] Office Visit Report [facility] [address], [address] [place] [address] OFFICE VISIT Date of Service: 08/29/24 MR#: [id number] Acct: [id number] Name: QUAN RODGERS KELTON Rep #: [id number] : 2000 Provider: KEO Ridley ams Age/Sex: 24/F [place] [facility] [place]: Signed Intake Vital Signs 06/16/24 20:27 [...] No current occupational status: employed current occupation: [employer] @ [employer] current occupational exposures/hazards: No pets and [...] times per week duration: < 15 minutes/day aly/taoist: None seatbelt use: always do you feel [...] - full term 8lbs 14oz Male epidural [facility] Renate Handley Max Delivery Date: 11/06/21 Last Updated by: Adri Kimble RN LTCS AOD 6 cm boy Babak IOL 41 HPI New OB, LMP 06/24, [...] Hepatitis: No (more content not included)... Normal [facility] Platelet countOrdered By: Byron Curry on 08-29-2024 Platelets (Bld) [#/Vol] 254 10*3/uL 150-450 [facility] RBC Auto (Bld) [#/Vol]Ordere d By: Shell Curry on 08-29-2024 RBC (Bld) [#/Vol] 4.31 10*6/uL 4.2-5.4 [facility] Rubella immune status determ ination by IgG antibody assayOrdered By: Shell Curry on 08-29-2024 Rubella IgG Antibody REAC Nonreactive [facility] Comment on above: Antibody Result: Int erpretationNon-Reactive: Non-ImmuneReactive: ImmuneThe following results were obtained with the [employer] Rubella IgG assay. Results from assays of other manufacturers cannot be used interchangeably. Service comment (Unsp spec) [Interp]Ordered By: Shell Curry on 08-29-2024 Pap Smear Comment (3) . . [facility] T. pallidum abOrdered By: Byron Curry on 08-29-2024 Syphilis Total Antibody Non-Reactive Nonreactiv e [facility] Type AND Screenon 08-29-2024 Ab SCREEN GEL Negative Normal [facility] Comment on above: Order Comment: N Performed By: #### L 7400.0353, L3890.6102, L509.8002, BTS, M100.2200, L3890.6006, L100.0100, L501.9985, L3890.6301, L7000.1800, L509.4006 ####[facility] [address] [place], [address] Urine cultureOrdered By: Jeison Curry on 08-29-2024 Bacteria identified Cx Nom (U) Positive Abnormal [facility] White blood cell (WBC) count Ordered By: Shell Curry on 08-29-2024 WBC (Bld) [#/Vol] 8.9 10*3/uL 4.4-11.0 [facility] Emergency Department Summary on 06-16-2024 Emergency Department Summary [facility] Medical Records Department [address] [place] [address] Emergency Department Summary 06/16/24 MR#: [id number] Acct: [id number] Name: QUAN RODGERS KELTON Rep #: [id number] : 2000 24 From: Franco Ortiz DO [...] bleeding would not stop. Here for evaluation. [facility] Medical History Arrest of [...] at home: Yes additional social history: - Adolph NOBLE ROS ED ROS Narrative Constitutional: Negative for [...] Pressure Mean 102 Pulse Ox 98 MDM [facility] Treatment and Re-Evaluation :: Differential diagnosis includes [...] was give (more content not included)... Normal [facility] Office Visit Reporton 2023 Office Visit Report [facility] [address] [place] [address] OFFICE VISIT Date of Service: 02/29/24 MR#: [id number] Acct: [id number] Patient: QUAN RODGERS KELTON Rep #: [id number] : 2000 Provider: CHANDNI Porter Age/Sex: 24/F Location: [facility] [place] Status: Signed Intake Vital Signs 08/15/23 17:35 Height 5 ft 11 in Intake Visit Reasons: PE NON DOT DRUG SCREEN/ [place] Chief Complaint: Depo Allergies No Known Allergies Allergy (Verified 08/15/23 17:37) Office Procedures [facility] Billing Sheet Testing Drug Screen Collection Only: Yes 04/03/2452 Date Frank TARIQ Cosigner Signature: Date (if applicable) CC: Normal [facility] Absolute lymphocyte counton 04-14-2022 Lymphocytes Auto (Unsp spec) [#/Vol] 2.17 10*3/uL 0.83-4.51 [facility] Work Phone: Basophil percentageon 2021 Basophils/100 WBC (Bld) 0.6 % 0-1 [facility] Work Phone: Eosinophils/100 WBC (Bld) 2.6 % 0-5 [facility] Work Phone: Neutrophils (Bld) [#/Vol] 4.0 10*3/uL 2.0-7.7 [facility] Work Phone: [phone] Neutrophils/100 WBC (Bld) 56.8 % 47-70 [facility] Work Phone: [phone] WBC (Bld) [#/Vol] 7.0 10*3/uL 4.4-11.0 [facility] Work Phone: [phone] Beta hCG serum qualon 2021 Beta HCG ( test) Ql Negative [facility] Work Phone: [phone] Blood erythrocytes count (nu mber/volume)on 04-14-2022 RBC (Bld) [#/Vol] 4.46 10*6/uL 4.2-5.4 [facility] Work Phone: [phone] Blood hemoglobin measurement (mass/volume)on 04-14-2022 Hemoglobin (Bld) [Mass/Vol] 13.1 g/dL 12.0-15.0 [facility] Work Phone: [phone] Blood lymphocytes/100 leukoc yteson 04-14-2022 Lymphocytes/100 WBC (Bld) 30.9 % 19-41 [facility] Work Phone: [phone] Blood monocytes/100 leukocyt eson 04-14-2022 Monocytes/100 WBC (Bld) 9.0 % 0-10 [facility] Work Phone: [phone] Blood platelet mean volumeon 04-14-2022 Platelet mean volume (Bld) [Entitic vol] 11.0 fL 6.2-12.0 [facility] Work Phone: [phone] Determination of erythrocyte mean corpuscular volume (MCV)on 04-14-2022 MCV (RBC) [Entitic vol] 86.1 fL 81-99 [facility] Work Phone: Hematocrit Auto (Bld) [Volum e fraction]on 04-14-2022 Hematocrit (Bld) [Volume fraction] 38.4 % 37-47 [facility] Work Phone: Laboratory - Hematology and Cell countson 04-14-2022 Erythrocyte distribution width (RBC) [Entitic vol] 40.1 fL 35.1-43.9 [facility] Work Phone: Erythrocyte distribution width (RBC) [Ratio] 12.8 % 11.6-14.6 [facility] Work Phone: Immature granulocytes/100 WBC (Bld) 0.100 % 0.0-0.9 [facility] Work Phone: Comment on above: IG% - Immature Granu locytes (promyelocytes, myelocytes and metamyelocytes) > 1% indicates that a LEFT SHIFT is Present. MCH (RBC) [Entitic mass] 29.4 pg 27.0-32.0 [facility] Work Phone: Nucleated RBC/100 WBC (Bld) [Ratio] 0 % 0-5 [facility] Work Phone: MCHC Auto (RBC) [Mass/Vol]on 04-14-2022 MCHC (RBC) [Mass/Vol] 34.1 g/dL 32-36 [facility] Work Phone: Platelets bldon 04-14-2022 Platelets (Bld) [#/Vol] 276 10*3/uL 150-450 [facility] Work Phone: Basophil percentageon 2021 WBC (Bld) [#/Vol] 23.7 10*3/uL 4.4-11.0 [facility] Work Phone: Blood erythrocytes count (nu mber/volume)on 11-07-2021 RBC (Bld) [#/Vol] 3.87 10*6/uL 4.2-5.4 [facility] Work Phone: Blood hemoglobin measurement (mass/volume)on 11-07-2021 Hemoglobin (Bld) [Mass/Vol] 12.0 g/dL 12.0-15.0 [facility] Work Phone: Blood platelet mean volumeon 11-07-2021 Platelet mean volume (Bld) [Entitic vol] 12.0 fL 6.2-12.0 [facility] Work Phone: Determination of erythrocyte mean corpuscular volume (MCV)on 11-07-2021 MCV (RBC) [Entitic vol] 93.0 fL 81-99 [facility] Work Phone: Hematocrit Auto (Bld) [Volum e fraction]on 11-07-2021 Hematocrit (Bld) [Volume fraction] 36.0 % 37-47 [facility] Work Phone: [phone] Laboratory - Hematology and Cell countson 11-07-2021 Erythrocyte distribution width (RBC) [Entitic vol] 43.1 fL 35.1-43.9 [facility] Work Phone: [phone] Erythrocyte distribution width (RBC) [Ratio] 12.8 % 11.6-14.6 [facility] Work Phone: [phone] MCH (RBC) [Entitic mass] 31.0 pg 27.0-32.0 [facility] Work Phone: [phone] MCHC Auto (RBC) [Mass/Vol]on 11-07-2021 MCHC (RBC) [Mass/Vol] 33.3 g/dL 32-36 [facility] Work Phone: [phone] Platelets bldon 11-07-2021 Platelets (Bld) [#/Vol] 165 10*3/uL 150-450 [facility] Work Phone: [phone] Absolute lymphocyte counton 11-06-2021 Lymphocytes Auto (Unsp spec) [#/Vol] 1.11 10*3/uL 0.83-4.51 [facility] Work Phone: [phone] Basophil percentageon 2021 Basophils/100 WBC (Bld) 0.2 % 0-1 [facility] Work Phone: [phone] Eosinophils/100 WBC (Bld) 0.0 % 0-5 [facility] Work Phone: [phone] Neutrophils (Bld) [#/Vol] 25.1 10*3/uL 2.0-7.7 [facility] Work Phone: [phone] Neutrophils/100 WBC (Bld) 91.0 % 47-70 [facility] Work Phone: Blood lymphocytes/100 leukoc yteson 11-06-2021 Lymphocytes/100 WBC (Bld) 4.0 % 19-41 [facility] Work Phone: Blood monocytes/100 leukocyt eson 11-06-2021 Monocytes/100 WBC (Bld) 4.3 % 0-10 [facility] Work Phone: Laboratory - Hematology and Cell countson 11-06-2021 Immature granulocytes/100 WBC (Bld) 0.500 % 0.0-0.9 [facility] Work Phone: Comment on above: IG% - Immature Granu locytes (promyelocytes, myelocytes and metamyelocytes) > 1% indicates that a LEFT SHIFT is Present. Nucleated RBC/100 WBC (Bld) [Ratio] 0 % 0-5 [facility] Work Phone: Laboratory - Chemistry and C hemistry - challengeon 10-26-2021 Glucose Ql (U) Negative [facility] Work Phone: Laboratory - Urinalysison Protein Ql (U) Negative [facility] Work Phone: Basophil percentageon 2021 Basophil percentage 0 SEEN /hpf [facility] Work Phone: Bilirubin Test strip Ql (U)o n 10-17-2021 Bilirubin Ql (U) Negative Negative [facility] Work Phone: Culture, urineon 10-17-2021 Bacteria identified Cx Nom (U) Positive [facility] Work Phone: Ketones Test strip Ql (U)on 10-17-2021 Ketones Ql (U) Negative Negative [facility] Work Phone: Mucus LM Ql (Urine sed)on Mucus Ql (Urine sed) 0 SEEN /hpf [facility] Work Phone: Nitrite Test strip Ql (U)on 10-17-2021 Nitrite Ql (U) Negative Negative [facility] Work Phone: Protein Test strip Ql (U)on 10-17-2021 Protein Ql (U) Negative Negative [facility] Work Phone: Squamous epithelial cells de tection in urine sediment by light microscopyon 10-17-2021 Epithelial cells.squamous LM Ql (Urine sed) 0-5 SEEN /hpf [facility] Work Phone: Urine blood detectionon 09-25 RBC Ql (U) Negative Negative [facility] Work Phone: RBC Ql (U) 0 SEEN /hpf [facility] Work Phone: Urine clarityon 10-17-2021 Clarity (U) Clear Clear [facility] Work Phone: Urine color determinationon 10-17-2021 Color (U) Yellow Yellow [facility] Work Phone: Urine glucose detectionon Glucose Ql (U) Normal mg/dl Normal [facility] Work Phone: Urine leukocyte esterase det ection by dipstickon 10-17-2021 Leukocyte esterase Test strip Ql (U) Negative Negative [facility] Work Phone: Urine pHon 10-17-2021 pH (U) 8.0 [pH] [facility] Work Phone: Urine sediment bacteria coun t by microscopy (number/high power field)on 10-17-2021 Bacteria LM.HPF (Urine sed) [#/Area] 1 /[HPF] None Seen [facility] Work Phone: Urine specific gravity measu rementon 10-17-2021 Specific gravity (U) [Rel density] 1.010 [facility] Work Phone: Urobilinogen Auto test strip Ql (U)on 10-17-2021 Urobilinogen Ql (U) Normal mg/dl Normal [facility] Work Phone: Laboratory - Chemistry and C hemistry - challengeon 10-12-2021 Glucose Ql (U) Negative [facility] Work Phone: Laboratory - Urinalysison Protein Ql (U) Negative [facility] Work Phone: Laboratory - Chemistry and C hemistry - challengeon 10-06-2021 Glucose Ql (U) Negative [facility] Work Phone: Laboratory - Urinalysison Protein Ql (U) Negative [facility] Work Phone: No Panel Informationon 10-06 Group B Streptococcus Culture Group B Beta Streptococcus is not isolated. [facility] Work Phone: Laboratory - Chemistry and C hemistry - challengeon 09-21-2021 Glucose Ql (U) Negative [facility] Work Phone: Laboratory - Urinalysison Protein Ql (U) Negative [facility] Work Phone: Laboratory - Chemistry and C hemistry - challengeon 09-06-2021 Glucose Ql (U) Negative [facility] Work Phone: Laboratory - Urinalysison Protein Ql (U) Negative [facility] Work Phone: Laboratory - Chemistry and C hemistry - challengeon 08-23-2021 Glucose Ql (U) Negative [facility] Work Phone: Laboratory - Urinalysison Protein Ql (U) Negative [facility] Work Phone: Absolute lymphocyte counton 08-10-2021 Lymphocytes Auto (Unsp spec) [#/Vol] 1.72 10*3/uL 0.83-4.51 [facility] Work Phone: Basophil percentageon 2021 Basophils/100 WBC (Bld) 0.3 % 0-1 [facility] Work Phone: Eosinophils/100 WBC (Bld) 1.0 % 0-5 [facility] Work Phone: Neutrophils (Bld) [#/Vol] 6.9 10*3/uL 2.0-7.7 [facility] Work Phone: Neutrophils/100 WBC (Bld) 73.2 % 47-70 [facility] Work Phone: WBC (Bld) [#/Vol] 9.4 10*3/uL 4.4-11.0 [facility] Work Phone: Blood erythrocytes count (nu mber/volume)on 08-10-2021 RBC (Bld) [#/Vol] 4.08 10*6/uL 4.2-5.4 [facility] Work Phone: Blood hemoglobin measurement (mass/volume)on 08-10-2021 Hemoglobin (Bld) [Mass/Vol] 12.7 g/dL 12.0-15.0 [facility] Work Phone: Blood lymphocytes/100 leukoc yteson 08-10-2021 Lymphocytes/100 WBC (Bld) 18.2 % 19-41 [facility] Work Phone: Blood monocytes/100 leukocyt eson 08-10-2021 Monocytes/100 WBC (Bld) 6.8 % 0-10 [facility] Work Phone: Blood platelet mean volumeon 08-10-2021 Platelet mean volume (Bld) [Entitic vol] 11.7 fL 6.2-12.0 [facility] Work Phone: Determination of erythrocyte mean corpuscular volume (MCV)on 08-10-2021 MCV (RBC) [Entitic vol] 91.7 fL 81-99 [facility] Work Phone: Gestational diabetes screen 1-hour screen with 50g oral glucose loadon 08-10-2021 Glucose 1 Hr post 50 g glucose PO [Mass/Vol] 121 mg/dL 70-140 [facility] Work Phone: Hematocrit Auto (Bld) [Volum e fraction]on 08-10-2021 Hematocrit (Bld) [Volume fraction] 37.4 % 37-47 [facility] Work Phone: Laboratory - Chemistry and C hemistry - challengeon 08-10-2021 Glucose Ql (U) Negative [facility] Work Phone: Laboratory - Hematology and Cell countson 08-10-2021 Erythrocyte distribution width (RBC) [Entitic vol] 42.6 fL 35.1-43.9 [facility] Work Phone: Erythrocyte distribution width (RBC) [Ratio] 12.7 % 11.6-14.6 [facility] Work Phone: Immature granulocytes/100 WBC (Bld) 0.500 % 0.0-0.9 [facility] Work Phone: Comment on above: IG% - Immature Granu locytes (promyelocytes, myelocytes and metamyelocytes) > 1% indicates that a LEFT SHIFT is Present. MCH (RBC) [Entitic mass] 31.1 pg 27.0-32.0 [facility] Work Phone: Nucleated RBC/100 WBC (Bld) [Ratio] 0 % 0-5 [facility] Work Phone: Laboratory - Urinalysison Protein Ql (U) Negative [facility] Work Phone: MCHC Auto (RBC) [Mass/Vol]on 08-10-2021 MCHC (RBC) [Mass/Vol] 34.0 g/dL 32-36 [facility] Work Phone: Platelets bldon 08-10-2021 Platelets (Bld) [#/Vol] 185 10*3/uL 150-450 [facility] Work Phone: Laboratory - Chemistry and C hemistry - challengeon 07-14-2021 Glucose Ql (U) Negative [facility] Work Phone: [phone] Laboratory - Urinalysison Protein Ql (U) Negative [facility] Work Phone: B-[place] [address].0 m[IU]/mL High <5.0 [facility] Comment on above: Order Comment: Speci men Type: BLOOD SPECIMEN Result Comment: LETICIA TITATIVE HCG NORMAL RANGES Weeks of Gestation (Weeks Since LMP) 3 Weeks (5.8-71.2 mIU/mL) 4 Weeks (9.5-750 mIU/mL) 5 Weeks (217-7138 mIU/mL) 6 Weeks (158-02173 mIU/mL) 7 Weeks (3697-284036 mIU/mL) 8 Weeks (90338-332686 mIU/mL) 9 Weeks (19878-846863 mIU/mL) 10 Weeks (96205-717950 mIU/mL) 12 Weeks (40123-242182 mIU/mL) Referenced to 4th IS of [facility] Performed By: #### 2 1198-7 #### [facility] CLIA [id number] [address] [place] [address] [place] GC/CHLAMYDIA DNA DETon 04-09 C. trachomatis DNA DEVENDRA+probe Ql (Unsp spec) Negative Normal Negative for Chlamydia trachomatis by amplificaton [facility] Comment on above: Performed By: #### G CCT #### [facility] CLIA [id number] [address] OF [facility] N. gonorrhoeae DNA DEVENDRA+probe Ql (Unsp spec) Negative Normal Negative for Neisseria gonorrhoeae by amplification [facility] Comment on above: Performed By: #### G CCT #### [facility] CLIA [id number] [address] [place] RAPID BACT VAGINOSIS ([place])on 04-09-2021 Bacterial sialidase Ql (Unsp spec) Negative Normal Negative for the presence of bacterial vaginosis. [facility] Comment on above: Order Comment: Speci men Type: MICROBIAL ISOLATE Performed By: #### R APBVAG #### [facility] CLIA [id number] [address] OF [place] T vaginalis Ag Genital Ql IA on 04-09-2021 T. vaginalis Ag IA Ql (Genital specimen) TRICHOMONAS PREP RESULT: Negative for Trichomonas vaginalis antigen Normal [facility] Comment on above: Performed By: #### 6 566-4 #### [facility] CLIA [id number] [address] [place], [place] [id number] [place] [address] TYPE AND SCREENon 04-09-2021 ABO O Normal [facility] Comment on above: Order Comment: Speci men Type: BLOOD SPECIMEN Performed By: #### T SCR #### [facility] CLIA [id number] [address] HISTORICAL AB SCR STATUS Negative Normal [facility] Comment on above: Order Comment: Speci men Type: BLOOD SPECIMEN Performed By: #### T SCR #### [facility] CLIA [id number] [address] Rh Nom (Bld) Positive Normal [facility] Comment on above: Order Comment: Speci men Type: BLOOD SPECIMEN Performed By: #### T SCR #### [facility] CLIA [id number] [address] TYPE AND SCREEN EXPIRATION 04/12/2021 23:59 Normal [facility] Comment on above: Order Comment: Speci men Type: BLOOD SPECIMEN Performed By: #### T SCR #### [facility] CLIA [id number] [address] Urinalysis complete panel (U )on 04-09-2021 Bacteria LM.HPF (Urine sed) [#/Area] Few Abnormal None Seen [facility] Comment on above: Order Comment: Speci men Type: URINE SPECIMEN Performed By: #### 2 4356-8 #### [facility] CLIA [id number] [address] [place], [place] [id number] [place] [address] Bilirubin Ql (U) Negative Normal Negative [facility] Comment on above: Order Comment: Speci men Type: URINE SPECIMEN Performed By: #### 2 4356-8 #### [facility] CLIA [id number] [address] [place] [address] [place] Clarity (Unsp spec) Clear Normal Clear [facility] Comment on above: Order Comment: Speci men Type: URINE SPECIMEN Performed By: #### 2 4356-8 #### [facility] CLIA [id number] [address] [facility] [place] [address] [place] Color (U) Yellow Normal Yellow [facility] Comment on above: Order Comment: Speci men Type: URINE SPECIMEN Performed By: #### 2 4356-8 #### [facility] CLIA [id number] [address] [facility] [place] [address] [facility] [place] Epithelial cells LM.HPF (Urine sed) [#/Area] Few Normal [facility] Comment on above: Order Comment: Speci men Type: URINE SPECIMEN Performed By: #### 2 4356-8 #### [facility] CLIA [id number] [address] [place] [address] [facility] Glucose Test strip (U) [Mass/Vol] Negative Normal Negative [facility] Comment on above: Order Comment: Speci men Type: URINE SPECIMEN Performed By: #### 2 4356-8 #### [facility] CLIA [id number] [address] [facility] [place] [address] [place] Hemoglobin Ql (U) Trace Abnormal Negative [facility] Comment on above: Order Comment: Speci men Type: URINE SPECIMEN Performed By: #### 2 4356-8 #### [facility] CLIA [id number] [address] [facility] [place] [address] [place] Ketones Ql (U) Negative Normal Negative [facility] Comment on above: Order Comment: Speci men Type: URINE SPECIMEN Performed By: #### 2 4356-8 #### [facility] CLIA [id number] [address] [facility] [place] [address] [facility] [place] Leukocyte esterase Test strip Ql (U) Negative Normal Negative [facility] Comment on above: Order Comment: Speci men Type: URINE SPECIMEN Performed By: #### 2 4356-8 #### [facility] CLIA [id number] [address] [facility] [place] [address] [place] Nitrite Ql (U) Negative Normal Negative [facility] Comment on above: Order Comment: Speci men Type: URINE SPECIMEN Performed By: #### 2 4356-8 #### [facility] CLIA [id number] [address] [place] [address] [place] pH (U) 7.5 [pH] Normal 5.0-8.0 [facility] Comment on above: Order Comment: Speci men Type: URINE SPECIMEN Performed By: #### 2 4356-8 #### [facility] CLIA [id number] [address] [place] [address] [place] Protein (U) [Mass/Vol] Negative Normal Negative [facility] Comment on above: Order Comment: Speci men Type: URINE SPECIMEN Performed By: #### 2 4356-8 #### [facility] CLIA [id number] [address] [facility] [place] [address] [place] RBC LM.HPF (Urine sed) [#/Area] 0-3 /HPF Normal 0-3 /HPF [facility] Comment on above: Order Comment: Speci men Type: URINE SPECIMEN Performed By: #### 2 4356-8 #### [facility] CLIA [id number] [address] [place] [address] [facility] [place] Specific gravity (U) [Rel density] 1.020 Normal 1.005-1.030 [facility] Comment on above: Order Comment: Speci men Type: URINE SPECIMEN Performed By: #### 2 4356-8 #### [facility] CLIA [id number] [address] [place] [address] [facility] [place] Urobilinogen Ql (U) 1.0 EU/dL Normal 0.2-1.0 EU/dL [facility] Comment on above: Order Comment: Speci men Type: URINE SPECIMEN Performed By: #### 2 4356-8 #### [facility] CLIA [id number] [address] [place] [address] [place] WBC LM.HPF (Urine sed) [#/Area] 0-5 /HPF Normal 0-5 /HPF [facility] Comment on above: Order Comment: Speci men Type: URINE SPECIMEN Performed By: #### 2 4356-8 #### [facility] CLIA [id number] [address] [place] [address] [facility] [place] .Urinalysis Microscopic (AO) on 12-22-2020 UA Bacteria 1+ /hpf Abnormal [facility] ([place]) Comment on above: Performed By: #### U A, PREGU, UAMICAO #### [address] [address] UA Mucous 4+ /hpf Normal [facility] ([place] Comment on above: Performed By: #### U A, PREGU, UAMICAO #### [place] [address] UA RBC 0-5 Abnormal None Seen [facility] [place] Comment on above: Performed By: #### U A, PREGU, UAMICAO #### [address] [address] UA Squam Epithelial LOADED Abnormal None Seen [facility] ([place] Comment on above: Performed By: #### U A, PREGU, UAMICAO #### [address] [address] UA WBC 0-5 Abnormal None Seen [facility] ([place] Comment on above: Performed By: #### U A, PREGU, UAMICAO #### [address] [address] PREGUon 12-22-2020 HCG ( test) Ql (U) Negative Normal [facility] ([place] Comment on above: Performed By: #### U A, PREGU, UAMICAO #### [address] [address] test (u) int Not detected Invalid Interpretation Code [facility] ([place] Comment on above: Performed By: #### U A, PREGU, UAMICAO #### [address] [address] UAon 12-22-2020 Color (U) Yellow Normal [facility] ([place] Comment on above: Performed By: #### U A, PREGU, UAMICAO #### [place] [address] Glucose (U) [Mass/Vol] Negative Normal Negative [facility] ([place]) Comment on above: Performed By: #### U A, PREGU, UAMICAO #### [place] [address] Ketones Ql (U) Negative Normal Negative [facility] ([place] Comment on above: Performed By: #### U A, PREGU, UAMICAO #### [place] [address] UA Appear Cloudy Abnormal Clear [facility] ([place] Comment on above: Performed By: #### U A, PREGU, UAMICAO #### [place] [address] UA Blood Negative Normal Negative [facility] ([place] Comment on above: Performed By: #### U A, PREGU, UAMICAO #### [place] [address] UA Leuk Est Negative Normal Negative [facility] ([place] Comment on above: Performed By: #### U A, PREGU, UAMICAO #### [place] [address] UA Nitrite Negative Normal Negative [facility] ([place] Comment on above: Performed By: #### U A, PREGU, UAMICAO #### [place] [address] UA pH 6.0 Normal 5.0 - 8.0 [facility] ([place] Comment on above: Performed By: #### U A, PREGU, UAMICAO #### [place] [address] UA Protein Negative Normal Negative [facility] ([place] Comment on above: Performed By: #### U A, PREGU, UAMICAO #### [place] [address] UA Spec Grav >=1.030 Abnormal 1.015-1.025 [facility] ([place]) Comment on above: Performed By: #### U A, PREGU, UAMICAO #### [place] [id number] UA Specimen Type Clean Catch Normal [facility] ([place] Comment on above: Performed By: #### U A, PREGU, UAMICAO #### [place] [address] UA Urobilinogen 0.2 E.U./dL Normal 0.2-1.0 [facility] ([place] Comment on above: Performed By: #### U A, PREGU, UAMICAO #### [place] [address] Urobilinogen (U) [Mass/Vol] Negative Normal Negative [facility] ([place] Comment on above: Performed By: #### U A, PREGU, UAMICAO #### [place] [id number] COVID PCR, SCREENING CONGREG ATEon 12-19-2019 CORONAVIRUS 2019,PCR NOT DETECTED Normal Not Detected [facility] Comment on above: Result Comment: This assay [...] patient management decisions. Fact sheet for providers: https://www.fda.gov/media/168237/download Fact sheet for patients: https://www.fda.gov/media/154268/download This test has received FDA Emergency Use Authorization (EUA) and has been verified by [facility] ([facility]). This test is only authorized for the duration of time that circumstances exist to justify the authorization of the emergency use of in vitro diagnostic tests for the detection of SARS-CoV-2 virus and/or diagnosis of COVID-19 infection under section 564(b)(1) of the Act, 21 U.S.C. 360bbb-3(b)(1), unless the authorization is terminated or revoked sooner. [facility] ([facility]) is certified under CLIA-88 as qualified to perform high complexity testing. This tests analytical performance characteristics have been determined by [facility]. Testing is performed at [facility] is located at [address] [place] [address] (CLIA License #[id number], CAP #[id number]). Performed By: #### C VCLA #### [facility] [address] [place] [address] COVID PCR, SCREENING CONGREG ATEon 12-18-2019 Lab Specimen Source Nasal, Nasopharyngeal Normal [facility] Comment on above: Performed By: #### C VCLA #### [facility] [address] [place] [address] Vital Signs Date Time Vital Sign Value Performing Clinician [place] mendoza 03-03-2025 15:17-0400 Body temperature 97.7 [degF] No Primary Care Physician [facility] 03-03-2025 15:17-0400 Respiratory rate 18 /min No Primary Care Physician [facility] 03-03-2025 15:17-0400 SaO2% (BldA) [Mass fraction] 97 % No Primary Care Physician [facility] 03-03-2025 15:16-0400 Diastolic blood pressure 77 mm[Hg] No Primary Care Physician [facility] 03-03-2025 15:16-0400 Heart rate 92 /min No Primary Care Physician [facility] 03-03-2025 15:16-0400 Systolic blood pressure 120 mm[Hg] No Primary Care Physician [facility] 03-03-2025 15:06-0400 Body height 180.34 cm No Primary Care Physician [facility] 03-03-2025 15:06-0400 Body mass index (BMI) [Ratio] 37.5 kg/m2 No Primary Care Physician [facility] 03-03-2025 15:06-0400 Body weight 122.01 kg No Primary Care Physician [facility] 03-03-2025 13:36-0400 Body height 177.8 cm No Primary Care Physician [facility] 03-03-2025 13:36-0400 Body mass index (BMI) [Ratio] 38.3 kg/m2 No Primary Care Physician [facility] 03-03-2025 13:36-0400 Body weight 121.13 kg No Primary Care Physician [facility] 03-03-2025 13:36-0400 Diastolic blood pressure 72 mm[Hg] No Primary Care Physician [facility] 03-03-2025 13:36-0400 Systolic blood pressure 123 mm[Hg] No Primary Care Physician [facility] 02-18-2025 14:45-0400 Body height 177.8 cm No Primary Care Physician [facility] 02-18-2025 14:45-0400 Body mass index (BMI) [Ratio] 38.7 kg/m2 No Primary Care Physician [facility] 02-18-2025 14:45-0400 Body weight 122.49 kg No Primary Care Physician [facility] 02-18-2025 14:45-0400 Diastolic blood pressure 59 mm[Hg] No Primary Care Physician [facility] 02-18-2025 14:45-0400 Systolic blood pressure 106 mm[Hg] No Primary Care Physician [facility] 02-13-2025 11:59-0400 Heart rate 86 /min No Primary Care Physician [facility] 02-13-2025 11:59-0400 SaO2% (BldA) [Mass fraction] 96 % No Primary Care Physician [facility] 02-13-2025 11:57-0400 Body temperature 97.8 [degF] No Primary Care Physician [facility] 02-13-2025 11:57-0400 Diastolic blood pressure 60 mm[Hg] No Primary Care Physician [facility] 02-13-2025 11:57-0400 Respiratory rate 16 /min No Primary Care Physician [facility] 02-13-2025 11:57-0400 Systolic blood pressure 119 mm[Hg] No Primary Care Physician [facility] 02-13-2025 11:44-0400 Body height 177.8 cm No Primary Care Physician [facility] 02-13-2025 11:44-0400 Body mass index (BMI) [Ratio] 38.7 kg/m2 No Primary Care Physician [facility] 02-13-2025 11:44-0400 Body weight 122.5 kg No Primary Care Physician [facility] 2025 10:41-0400 Body height 177.8 cm No Primary Care Physician [facility] 2025 10:41-0400 Body mass index (BMI) [Ratio] 37.9 kg/m2 No Primary Care Physician [facility] 2025 10:41-0400 Body weight 119.97 kg No Primary Care Physician [facility] 2025 10:41-0400 Diastolic blood pressure 81 mm[Hg] No Primary Care Physician [facility] 2025 10:41-0400 Systolic blood pressure 118 mm[Hg] No Primary Care Physician [facility] 01-23-2025 10:44-0400 Body height 177.8 cm No Primary Care Physician [facility] 01-23-2025 10:44-0400 Body mass index (BMI) [Ratio] 37.9 kg/m2 No Primary Care Physician [facility] 01-23-2025 10:44-0400 Body weight 119.86 kg No Primary Care Physician [facility] 01-23-2025 10:44-0400 Diastolic blood pressure 73 mm[Hg] No Primary Care Physician [facility] 01-23-2025 10:44-0400 Systolic blood pressure 112 mm[Hg] No Primary Care Physician [facility] 01-06-2025 14:59-0400 Body height 177.8 cm No Primary Care Physician [facility] 01-06-2025 14:59-0400 Body mass index (BMI) [Ratio] 37.3 kg/m2 No Primary Care Physician [facility] 01-06-2025 14:59-0400 Body weight 118.16 kg No Primary Care Physician [facility] 01-06-2025 14:59-0400 Diastolic blood pressure 73 mm[Hg] No Primary Care Physician [facility] 01-06-2025 14:59-0400 Systolic blood pressure 108 mm[Hg] No Primary Care Physician [facility] 12-25-2024 10:52-0400 Heart rate 74 /min No Primary Care Physician [facility] 12-25-2024 10:52-0400 SaO2% (BldA) [Mass fraction] 97 % No Primary Care Physician [facility] 12-25-2024 10:05-0400 Body temperature 98.2 [degF] No Primary Care Physician [facility] 12-25-2024 10:05-0400 Diastolic blood pressure 63 mm[Hg] No Primary Care Physician [facility] 12-25-2024 10:05-0400 Respiratory rate 16 /min No Primary Care Physician [facility] 12-25-2024 10:05-0400 Systolic blood pressure 118 mm[Hg] No Primary Care Physician [facility] 12-25-2024 09:54-0400 Body height 177.8 cm No Primary Care Physician [facility] 12-25-2024 09:54-0400 Body mass index (BMI) [Ratio] 37.9 kg/m2 No Primary Care Physician [facility] 12-25-2024 09:54-0400 Body weight 120 kg No Primary Care Physician [facility] 12-25-2024 08:58-0400 Body height 180.34 cm No Primary Care Physician [facility] 12-25-2024 08:57-0400 Body mass index (BMI) [Ratio] 36.1 kg/m2 No Primary Care Physician [facility] 12-25-2024 08:57-0400 Body weight 117.59 kg No Primary Care Physician [facility] 12-25-2024 08:57-0400 Diastolic blood pressure 77 mm[Hg] No Primary Care Physician [facility] 12-25-2024 08:57-0400 Systolic blood pressure 117 mm[Hg] No Primary Care Physician [facility] 12-20-2024 08:29-0400 Body height 180.34 cm No Primary Care Physician [facility] 12-20-2024 08:29-0400 Body mass index (BMI) [Ratio] 36.5 kg/m2 No Primary Care Physician [facility] 12-20-2024 08:29-0400 Body weight 118.84 kg No Primary Care Physician [facility] 12-20-2024 08:29-0400 Diastolic blood pressure 78 mm[Hg] No Primary Care Physician [facility] 12-20-2024 08:29-0400 Systolic blood pressure 114 mm[Hg] No Primary Care Physician [facility] 11-21-2024 10:42-0400 Body height 180.34 cm No Primary Care Physician [facility] 11-21-2024 10:42-0400 Body mass index (BMI) [Ratio] 36.1 kg/m2 No Primary Care Physician [facility] 11-21-2024 10:42-0400 Body weight 117.48 kg No Primary Care Physician [facility] 11-21-2024 10:42-0400 Diastolic blood pressure 68 mm[Hg] No Primary Care Physician [facility] 11-21-2024 10:42-0400 Systolic blood pressure 113 mm[Hg] No Primary Care Physician [facility] 10-25-2024 18:55-0400 Body height 180.34 cm No Primary Care Physician [facility] 10-25-2024 18:55-0400 Body mass index (BMI) [Ratio] 36.1 kg/m2 No Primary Care Physician [facility] 10-25-2024 18:55-0400 Body temperature 97.9 [degF] No Primary Care Physician [facility] 10-25-2024 18:55-0400 Body weight 117.66 kg No Primary Care Physician [facility] 10-25-2024 18:55-0400 Diastolic blood pressure 79 mm[Hg] No Primary Care Physician [facility] 10-25-2024 18:55-0400 Heart rate 102 /min No Primary Care Physician [facility] 10-25-2024 18:55-0400 Respiratory rate 19 /min No Primary Care Physician [facility] 10-25-2024 18:55-0400 SaO2% (BldA) [Mass fraction] 98 % No Primary Care Physician [facility] 10-25-2024 18:55-0400 Systolic blood pressure 136 mm[Hg] No Primary Care Physician [facility] 10-21-2024 08:39-0400 Body mass index (BMI) [Ratio] 36 kg/m2 No Primary Care Physician [facility] 10-21-2024 08:39-0400 Body weight 117.08 kg No Primary Care Physician [facility] 10-21-2024 08:39-0400 Diastolic blood pressure 71 mm[Hg] No Primary Care Physician [facility] 10-21-2024 08:39-0400 Systolic blood pressure 115 mm[Hg] No Primary Care Physician [facility] 09-26-2024 13:48-0400 Body height 180.34 cm No Primary Care Physician [facility] 09-26-2024 13:47-0400 Body mass index (BMI) [Ratio] 35.9 kg/m2 No Primary Care Physician [facility] 09-26-2024 13:47-0400 Body weight 117.02 kg No Primary Care Physician [facility] 09-26-2024 13:47-0400 Diastolic blood pressure 73 mm[Hg] No Primary Care Physician [facility] 09-26-2024 13:47-0400 Systolic blood pressure 123 mm[Hg] No Primary Care Physician [facility] 09-04-2024 10:55-0400 Body height 180.34 cm No Primary Care Physician [facility] 09-04-2024 10:54-0400 Body mass index (BMI) [Ratio] 35.6 kg/m2 No Primary Care Physician [facility] 09-04-2024 10:54-0400 Body weight 115.77 kg No Primary Care Physician [facility] 09-04-2024 10:54-0400 Diastolic blood pressure 73 mm[Hg] No Primary Care Physician [facility] 09-04-2024 10:54-0400 Systolic blood pressure 113 mm[Hg] No Primary Care Physician [facility] 08-30-2024 02:37-0500 Body temperature 98 [degF] No Primary Care Physician [facility] 08-30-2024 02:37-0500 Diastolic blood pressure 74 mm[Hg] No Primary Care Physician [facility] 08-30-2024 02:37-0500 Heart rate 73 /min No Primary Care Physician [facility] 08-30-2024 02:37-0500 Respiratory rate 18 /min No Primary Care Physician [facility] 08-30-2024 02:37-0500 SaO2% (BldA) [Mass fraction] 100 % No Primary Care Physician [facility] 08-30-2024 02:37-0500 Systolic blood pressure 130 mm[Hg] No Primary Care Physician [facility] 08-30-2024 00:40-0500 Body height 180.34 cm No Primary Care Physician [facility] 08-30-2024 00:40-0500 Body mass index (BMI) [Ratio] 16.5 kg/m2 No Primary Care Physician [facility] 08-30-2024 00:40-0500 Body weight 53.72 kg No Primary Care Physician [facility] 08-29-2024 11:11-0500 Body mass index (BMI) [Ratio] 37.2 kg/m2 No Primary Care Physician [facility] 08-29-2024 11:11-0500 Body weight 117.65 kg No Primary Care Physician [facility] 08-29-2024 11:11-0500 Diastolic blood pressure 78 mm[Hg] No Primary Care Physician [facility] 08-29-2024 11:11-0500 Systolic blood pressure 121 mm[Hg] No Primary Care Physician [facility] 06-16-2024 21:22-0500 Body temperature 98 [degF] No Primary Care Physician [facility] 06-16-2024 21:22-0500 Diastolic blood pressure 84 mm[Hg] No Primary Care Physician [facility] 06-16-2024 21:22-0500 Heart rate 80 /min No Primary Care Physician [facility] 06-16-2024 21:22-0500 Respiratory rate 16 /min No Primary Care Physician [facility] 06-16-2024 21:22-0500 SaO2% (BldA) [Mass fraction] 98 % No Primary Care Physician [facility] 06-16-2024 21:22-0500 Systolic blood pressure 130 mm[Hg] No Primary Care Physician [facility] 06-16-2024 20:27-0500 Body mass index (BMI) [Ratio] 36.8 kg/m2 No Primary Care Physician [facility] 06-16-2024 20:27-0500 Body weight 116.66 kg No [facility] [facility] 08-15-[facility]23 19:40-0500 Body temperature 97.2 [degF] [facility] 08-15-2023 19:40-0500 Diastolic blood pressure 71 mm[Hg] [facility] 08-15-2023 19:40-0500 Heart rate 62 /min [facility] 08-15-2023 19:40-0500 Respiratory rate 12 /min [facility] 08-15-2023 19:40-0500 SaO2% (BldA) [Mass fraction] 99 % [facility] 08-15-2023 19:40-0500 Systolic blood pressure 122 mm[Hg] [facility] 08-15-2023 17:35-0500 Body height 180.34 cm [facility] 08-15-2023 17:35-0500 Body mass index (BMI) [Ratio] 38.5 kg/m2 [facility] 08-15-2023 17:35-0500 Body weight 125.24 kg [facility] 04-14-2022 16:16-0400 Body height 180.34 cm No Primary Care Physician [facility] Work Phone: 04-14-2022 16:16-0400 Body mass index (BMI) [Ratio] 30.7 kg/m2 No Primary Care Physician [facility] Work Phone: 04-14-2022 16:16-0400 Body temperature 98.1 [degF] No Primary Care Physician [facility] Work Phone: 04-14-2022 16:16-0400 Body weight 99.79 kg No Primary Care Physician [facility] Work Phone: 04-14-2022 16:16-0400 Diastolic blood pressure 90 mm[Hg] No Primary Care Physician [facility] Work Phone: 04-14-2022 16:16-0400 Heart rate 109 /min No Primary Care Physician [facility] Work Phone: 04-14-2022 16:16-0400 Respiratory rate 18 /min No Primary Care Physician [facility] Work Phone: 04-14-2022 16:16-0400 SaO2% (BldA) [Mass fraction] 97 % No Primary Care Physician [facility] Work Phone: 04-14-2022 16:16-0400 Systolic blood pressure 140 mm[Hg] No Primary Care Physician [facility] Work Phone: 12-21-2021 14:42-0400 Body mass index (BMI) [Percentile] Per age and sex 96.7 % No Primary Care Physician [facility] Work Phone: 12-21-2021 14:42-0400 Body mass index (BMI) [Ratio] 34.2 kg/m2 No Primary Care Physician [facility] Work Phone: 12-21-2021 14:42-0400 Body weight 111.24 kg No Primary Care Physician [facility] Work Phone: 12-21-2021 14:42-0400 Diastolic blood pressure 70 mm[Hg] No Primary Care Physician [facility] Work Phone: 12-21-2021 14:42-0400 Systolic blood pressure 110 mm[Hg] No Primary Care Physician [facility] Work Phone: 11-08-2021 12:23-0400 Body temperature 97.8 [degF] DO [facility] Work Phone: 11-08-2021 12:23-0400 Diastolic blood pressure 86 mm[Hg] DO [facility] Work Phone: 11-08-2021 12:23-0400 Heart rate 106 /min DO [facility] Work Phone: 11-08-2021 12:23-0400 Respiratory rate 16 /min DO [facility] Work Phone: 11-08-2021 12:23-0400 SaO2% (BldA) [Mass fraction] 100 % DO [facility] Work Phone: 11-08-2021 12:23-0400 Systolic blood pressure 141 mm[Hg] DO [facility] Work Phone: 11-04-2021 19:28-0400 Body height 180.34 cm DO [facility] Work Phone: 11-04-2021 19:28-0400 Body mass index (BMI) [Ratio] 37.8 kg/m2 DO [facility] Work Phone: 11-04-2021 19:28-0400 Body weight 123.03 kg DO [facility] Work Phone: 10-26-2021 13:44-0400 Body mass index (BMI) [Ratio] 43 kg/m2 DO [facility] Work Phone: 10-26-2021 13:44-0400 Body weight 120.82 kg DO [facility] Work Phone: 10-26-2021 13:44-0400 Diastolic blood pressure 78 mm[Hg] DO [facility] Work Phone: 10-26-2021 13:44-0400 Systolic blood pressure 104 mm[Hg] DO [facility] Work Phone: 10-18-2021 13:13-0400 Body mass index (BMI) [Ratio] 42.3 kg/m2 DO [facility] Work Phone: 10-18-2021 13:13-0400 Body weight 118.84 kg DO [facility] Work Phone: 10-18-2021 13:13-0400 Diastolic blood pressure 82 mm[Hg] DO [facility] Work Phone: 10-18-2021 13:13-0400 Systolic blood pressure 132 mm[Hg] DO [facility] Work Phone: 10-17-2021 18:45-0400 Body temperature 98 [degF] DO [facility] Work Phone: 10-17-2021 18:43-0400 Diastolic blood pressure 71 mm[Hg] DO [facility] Work Phone: 10-17-2021 18:43-0400 Heart rate 83 /min DO [facility] Work Phone: 10-17-2021 18:43-0400 Systolic blood pressure 119 mm[Hg] DO [facility] Work Phone: 10-17-2021 16:28-0400 Diastolic blood pressure 68 mm[Hg] DO [facility] Work Phone: 10-17-2021 16:28-0400 Heart rate 93 /min DO [facility] Work Phone: 10-17-2021 16:28-0400 Systolic blood pressure 98 mm[Hg] DO [facility] Work Phone: 10-17-2021 15:29-0400 Body height 180.34 cm DO [facility] Work Phone: 10-17-2021 15:29-0400 Body mass index (BMI) [Ratio] 36.3 kg/m2 DO [facility] Work Phone: 10-17-2021 15:29-0400 Body weight 118 kg DO [facility] Work Phone: 10-17-2021 15:25-0400 Body temperature 96.9 [degF] DO [facility] Work Phone: 10-12-2021 13:39-0400 Body mass index (BMI) [Ratio] 43 kg/m2 DO [facility] Work Phone: 10-12-2021 13:39-0400 Body weight 120.88 kg DO [facility] Work Phone: 10-12-2021 13:39-0400 Diastolic blood pressure 70 mm[Hg] DO [facility] Work Phone: 10-12-2021 13:39-0400 Systolic blood pressure 110 mm[Hg] DO [facility] Work Phone: 10-06-2021 11:18-0400 Body mass index (BMI) [Ratio] 42.2 kg/m2 DO [facility] Work Phone: 10-06-2021 11:18-0400 Body weight 118.55 kg DO [facility] Work Phone: 10-06-2021 11:18-0400 Diastolic blood pressure 70 mm[Hg] DO [facility] Work Phone: 10-06-2021 11:18-0400 Systolic blood pressure 104 mm[Hg] DO [facility] Work Phone: 09-21-2021 14:02-0400 Body mass index (BMI) [Ratio] 42.2 kg/m2 DO [facility] Work Phone: 09-21-2021 14:02-0400 Body weight 118.61 kg DO [facility] Work Phone: 09-21-2021 14:02-0400 Diastolic blood pressure 88 mm[Hg] DO [facility] Work Phone: 09-21-2021 14:02-0400 Systolic blood pressure 118 mm[Hg] DO [facility] Work Phone: 09-06-2021 13:02-0400 Body mass index (BMI) [Ratio] 41.3 kg/m2 DO [facility] Work Phone: 09-06-2021 13:02-0400 Body weight 116.11 kg DO [facility] Work Phone: 09-06-2021 13:02-0400 Diastolic blood pressure 78 mm[Hg] DO [facility] Work Phone: 09-06-2021 13:02-0400 Systolic blood pressure 112 mm[Hg] DO [facility] Work Phone: 08-23-2021 11:57-0500 Body mass index (BMI) [Ratio] 41 kg/m2 DO [facility] Work Phone: 08-23-2021 11:57-0500 Body weight 115.21 kg DO [facility] Work Phone: 08-23-2021 11:57-0500 Diastolic blood pressure 74 mm[Hg] DO [facility] Work Phone: 08-23-2021 11:57-0500 Systolic blood pressure 113 mm[Hg] DO [facility] Work Phone: 08-10-2021 08:08-0500 Body mass index (BMI) [Ratio] 40.1 kg/m2 DO [facility] Work Phone: 08-10-2021 08:08-0500 Body weight 112.71 kg DO [facility] Work Phone: 08-10-2021 08:08-0500 Diastolic blood pressure 74 mm[Hg] DO [facility] Work Phone: 08-10-2021 08:08-0500 Systolic blood pressure 110 mm[Hg] DO [facility] Work Phone: 07-14-2021 10:06-0500 Body mass index (BMI) [Ratio] 39.4 kg/m2 DO [facility] Work Phone: 07-14-2021 10:06-0500 Body weight 110.67 kg DO [facility] Work Phone: 07-14-2021 10:06-0500 Diastolic blood pressure 82 mm[Hg] DO [facility] Work Phone: 07-14-2021 10:06-0500 Systolic blood pressure 118 mm[Hg] DO [facility] Work Phone: Encounters Encounter Date Encounter Type Care Provider Facility Start: 03-24-2025 ambulatory No Primary Car e Physician Facility:[facility] Start: 03-03-2025 ambulatory Renate Callahan lity:[facility] Start: 03-03-2025 End: 03-03-2025 ambulatory No Primary Care Physician [facility] Start: 03-03-2025 End: 03-03-[address] Renate Handley MD -[facility] Work Phone: Start: 03-03-2025 End: 03-03-[address] Renate Handley MD -[facility] Work Phone: Start: 03-03-2025 End: 03-03-2025 ambulatory No Primary Care Physician -[facility] Start: 02-18-2025 End: 02-18-[address] Renate Handley MD -[facility] Work Phone: Start: 02-18-2025 End: 02-18-2025 ambulatory No Primary Care Physician [facility] Start: 02-13-2025 ambulatory Renate mendoza:[facility] Start: 02-13-2025 Non-patient / Non-visit Dr. Renate Handley MD -[facility] Start: 02-13-2025 End: 02-13-2025 ambulatory No Primary Care Physician -[facility] Start: 02-13-2025 End: 02-13-[address] Renate Handley MD -[facility] Work Phone: Start: 02-07-2025 End: 02-07-2025 ambulatory No Primary Care Physician -[facility] Start: 02-07-2025 End: 02-07-[address] Renate Handley MD -Ultrasound [facility] Work Phone: Start: 02-07-2025 End: 02-07-2025 ambulatory Renate Handley Facility:[facility] Start: 2025 End: [address] Renate Handley MD -[facility] Work Phone: Start: 2025 End: 2025 ambulatory No Primary Care Physician -[facility] Start: 01-23-2025 End: 01-23-[address] Renate Handley MD -[facility] Work Phone: Start: 01-23-2025 End: 01-23-2025 ambulatory No Primary Care Physician [facility] Start: 01-06-2025 End: 01-06-[address] Renate Handley MD -[facility] Work Phone: Start: 01-06-2025 End: 01-06-2025 ambulatory No Primary Care Physician [facility] Start: 01-06-2025 End: 01-06-2025 ambulatory Geneva Wheeler ASSISTANT BUYER Facility:[facility] Start: 12-25-2024 ambulatory No Primary Car e Physician Facility:[facility] Start: 12-25-2024 Non-patient / Non-visit Dr. Raven Modi DO -[facility] Start: 12-25-2024 End: 12-25-2024 ambulatory No Primary Care Physician -Laboratory Specimen Start: 12-25-2024 End: 12-25-[address] Raven Modi DO -Laboratory Specimen Work Phone: Start: 12-25-2024 End: 12-25-[address] Raven Modi DO -[facility] Work Phone: Start: 12-25-2024 End: 12-25-2024 ambulatory No Primary Care Physician [facility] Start: 12-25-2024 End: 12-25-2024 ambulatory No Primary Care Physician Facility:[facility] Start: 12-20-2024 End: 12-20-2024 Patient encounter procedure Dariana Eli CNM -[facility] Work Phone: Start: 12-20-2024 End: 12-20-2024 ambulatory No Primary Care Physician [facility] Work Phone: Start: 11-21-2024 End: 11-21-2024 ambulatory No Primary Care Physician [facility] Work Phone: Start: 11-21-2024 End: 11-21-[address] Renate Handley MD -Laboratory Specimen Work Phone: Start: 11-21-2024 End: 11-21-[address] Renate Handley MD -[facility] Work Phone: Start: 11-21-2024 End: 11-21-2024 ambulatory No Primary Care Physician [facility] Work Phone: Start: 11-21-2024 End: 11-21-2024 ambulatory Renate Handley Facility:[facility] Start: 11-12-2024 End: 11-12-2024 ambulatory No Primary Care Physician [facility] Work Phone: Start: 11-12-2024 End: 11-12-2024 Patient encounter procedure Geneva Wheeler ASSISTANT BUYER-C -[facility] Work Phone: Start: 11-12-2024 End: 11-12-2024 ambulatory Geneva Wheeler ASSISTANT BUYER Facility:[facility] Start: 10-25-2024 End: 10-25-2024 Emergency department patient visit Dr. Heraclio Ornelas DO -Emergency Department Work Phone: Start: 10-21-2024 End: 10-21-2024 Patient encounter procedure Geneva Wheeler ASSISTANT BUYER-C -[facility] Work Phone: Start: 10-21-2024 End: 10-21-2024 ambulatory Geneva Wheeler ASSISTANT BUYER Facility:[facility] Start: 10-02-2024 End: 10-02-2024 ambulatory No Primary Care Physician [facility] Work Phone: Start: 10-02-2024 End: 10-02-[address] Raven Modi DO -[facility] Start: 10-02-2024 End: 10-02-2024 ambulatory Raven Modi Facility:[facility] Start: 09-26-2024 End: 09-26-[address] Raven Modi DO -[facility] Work Phone: Start: 09-26-2024 End: 09-26-2024 ambulatory No Primary Care Physician Facility:[facility] Start: 09-04-2024 End: 09-04-[address] Raven Modi DO -[facility] Work Phone: Start: 09-04-2024 End: 09-04-2024 ambulatory No Primary Care Physician Facility:[facility] Start: 08-30-2024 End: 08-30-2024 Emergency department patient visit No Primary Care Physician -Emergency Department Work Phone: Start: 08-29-2024 End: 08-29-2024 Patient encounter procedure Shell Curry CNM -[facility] Work Phone: Start: 08-29-2024 End: 08-29-2024 ambulatory No Primary Care Physician [facility] Work Phone: Start: 08-29-2024 End: 08-29-2024 ambulatory Shell Curry Facility:[facility] Start: 08-09-2024 Non-patient / Non-visit Adri Kimble RN -[facility] Work Phone: Start: 08-09-2024 ambulatory No Primary Car e Physician Facility:[facility] Start: 06-16-2024 End: 06-16-2024 Emergency department patient visit Dr. Franco Ortiz DO -Emergency Department Work Phone: Start: 08-15-2023 End: 08-15-2023 Emergency department patient visit [facility]-Emergency Department Work Phone: Start: 04-14-2022 End: 04-14-2022 Emergency department patient visit No Primary Care Physician [facility]-Emergency Department Start: 12-21-2021 End: 12-21-2021 Patient encounter procedure No Primary Care Physician [facility] Start: 11-08-2021 Non-patient / Non-visit DO [facility] Start: 11-07-2021 Non-patient / Non-visit DO [facility] Start: 11-06-2021 Non-patient / Non-visit DO [facility] Start: 11-05-2021 Non-patient / Non-visit DO [facility] Start: 11-04-2021 Non-patient / Non-visit DO [facility] Start: 11-04-2021 End: 11-08-2021 Evaluation and management of inpatient DO [facility] Start: 10-26-2021 End: 10-26-2021 Patient encounter procedure DO [facility] Start: 10-18-2021 End: 10-18-2021 Patient encounter procedure DO [facility] Start: 10-17-2021 Non-patient / Non-visit DO [facility] Start: 10-17-2021 End: 10-17-2021 [facility] Start: 10-12-2021 End: 10-12-2021 Patient encounter procedure DO [facility] Start: 10-06-2021 End: 10-06-2021 Patient encounter procedure DO [facility] Start: 10-06-2021 End: 10-06-2021 Patient encounter procedure DO [facility]-Laboratory, Specimen Start: 09-27-2021 End: 09-27-2021 Patient encounter procedure DO [facility]-Ultrasound, [facility] Start: 09-21-2021 End: 09-21-2021 Patient encounter procedure DO [facility] Start: 09-06-2021 End: 09-06-2021 Patient encounter procedure DO [facility] Start: 08-23-2021 End: 08-23-2021 Patient encounter procedure DO [facility] Start: 08-10-2021 End: 08-10-2021 Patient encounter procedure DO [facility]-Laboratory, OP Pavilion Start: 07-14-2021 End: 07-14-2021 Patient encounter procedure DO [facility] Procedures Date Procedure Procedure Detail Performing Clinician Start: 03-03-2025 Ultrasonography for biophysical profile without non-stress testing No Primary Care Physician Start: 03-03-2025 End: 03-03-2025 Bacterial nucleic acid assay No Primary Care Physician Start: 02-13-2025 Urine culture No Primar y Care Physician Start: 02-13-2025 Urnls dip stick/tabl et reagent auto microscopy No Primary Care Physician Start: 02-07-2025 Ultrasound scan for growth No Primary Care Physician Start: 01-06-2025 Serologic test for syphilis No Primary Care Physician Start: 12-25-2024 Gram stain microscopy N o [...] HCV Quant by PCR testing - HCVPCR #[id number] Non Reactive: < 0.8 Equivocal: >/= 0.8 to < 1.0 Reactive: >/= 1.0The CDC requires that a reactive/equivocal HCV antibody result be sent out for confirmation. HCV Quant by PCR testing. Start: 08-29-2024 Rubella IgG measurement No Primary Care Physician Comment on above: Antibody Result: Int erpretationNon-Reactive: Non- ImmuneReactive: ImmuneThe following results were obtained with the [employer] Rubella IgG assay. Results from assays of other manufacturers cannot be used interchangeably. Start: 08-29-2024 Serologic test for syphilis No Primary Care Physician Start: 08-29-2024 Liquid based cervica l cytology screening No Primary Care Physician Comment on above: NEGATIVE FOR INTRAEP ITHELIAL LESION OR MALIGNANCY.THIS SPECIMEN WAS RESCREENED PART OF OUR OFFENDER JOB RETENTION SPECIALIST PROGRAM. This liquid based Th inPrep(R) pap test was screened withthe use of an image guided system. The HPV DNA reflex c riteria were not met with this specimenresult therefore, no HPV testing was performed.Performed at: [address] [id number] Director: Sheryl Melendez MD, Phone: [phone] Start: 11-04-2021 End: 11-04-2021 Viral antigen assay DO [facility] Start: 10-17-2021 Urine culture DO [facility] D[facility]a Start: 10-06-2021 Group B Streptococcu s Culture DO [facility] Start: 09-27-2021 Ultrasound scan for growth DO [facility] Start: 04-09-2021 Antibody screen Comment on above: Order Comment: Speci men Type: BLOOD SPECIMEN Performed By: #### T SCR #### [facility] [place] [id number] [address] [place] [facility] H/O: section History of delivery, currently No Primary Care Physician Comment on above: x1, Desires rpt csec x1, Desires rpt csec with SM x1, Desires rpt csec with SM, c/s 03/24. H/O: section History of delivery, currently Shell Curry CNM H/O: 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 Raven Modi DO H/O: 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 Raven Modi DO H/O: section History of delivery, currently Geneva Wheeler ASSISTANT BUYER-C H/O: 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 Renate Handley MD H/O: section History of delivery, currently Dariana Eli CNM H/O: 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 Raven Modi DO H/O: 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 Renate Handley MD H/O: 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 Renate Handley MD H/O: 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 Renate Handley MD H/O: 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 Renate Handley MD H/O: 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 Renate Handley MD Plan of Treatment Date Care Activity Detail Author Start: 03-03-2025 Nonstress test [facility] Start: 03-03-2025 Obstetric monitoring [facility] Start: 03-03-2025 Vital signs measurements [facility] Start: 03-03-2025 End: 03-03-2025 [facility] Start: 03-03-2025 Group B Streptococcus Culture Group B Streptococcus Culture [facility] Start: 03-03-2025 Patient discharge [facility] Start: 02-13-2025 Bacteria identified in Urine by Culture Urine Culture [facility] Start: 02-13-2025 End: 02-13-2025 [facility] Start: 02-13-2025 Nonstress test [facility] Start: 02-13-2025 Obstetric monitoring [facility] Start: 02-13-2025 Vital signs measurements [facility] Start: 02-13-2025 Patient discharge [facility] Start: 01-06-2025 CBC W Auto Differential panel - Blood [facility] Start: 01-06-2025 Measurement of glucose 2 hours after glucose challenge for glucose tolerance test [facility] Start: 01-06-2025 Serologic test for syphilis [facility] Start: 01-06-2025 [facility] Start: 12-25-2024 Bacteria identified in Urine by Culture Urine Culture [facility] Start: 12-25-2024 Cul bact xcpt urine blood/stool aerobic isol CULTURE OTHR SPECIMN AEROBIC [facility] Start: 12-25-2024 Culture bacterial quanttative colony count urine URINE CULTURE/COLONY COUNT [facility] Start: 12-25-2024 Genital Culture Genital Culture [facility] Start: 12-25-2024 Microscopic observation [Identifier] in Unspecified specimen by Gram stain [facility] Start: 12-25-2024 Smr prim src gram/giemsa stain bct fungi/cell SMEAR GRAM STAIN [facility] Start: 12-25-2024 Source specific culture [facility] Start: 12-25-2024 [facility] Start: 12-25-2024 Nonstress test [facility] Start: 12-25-2024 Obstetric monitoring [facility] Start: 12-25-2024 [facility] Start: 12-25-2024 Vital signs measurements [facility] Start: 12-25-2024 Patient discharge [facility] Start: 10-25-2024 [facility] Start: 08-30-2024 Bacteria identified in Urine by Culture Urine Culture [facility] Start: 08-30-2024 [facility] Start: 08-30-2024 [facility] Start: 08-29-2024 Bacteria identified in Urine by Culture Urine Culture [facility] Start: 08-29-2024 Chlamydia deoxyribonucleic acid detection [facility] Start: 08-29-2024 Liquid based cervical cytology screening [facility] Start: 08-29-2024 [facility] Start: 06-16-2024 [facility] Start: 08-15-2023 [facility] Start: 10-17-2021 Bacteria identified in Urine by Culture Urine Culture [facility] Work Phone: Beta-hemolytic Streptococcus culture [facility] Bilirubin measuremen t, urine [facility] CBC W Auto Different ial panel - Blood [facility] Erythrocyte mean corpuscular volume determination [facility] Genital microscopy, culture and sensitivities [facility] Hematocrit [Volume Fraction] of Blood [facility] Hemoglobin [Mass/vol ume] in Blood [facility] Hemoglobin [Presence ] in Urine [facility] Leukocytes [#/volume ] in Blood [facility] Mean corpuscular hem oglobin concentration determination [facility] Mean corpuscular hem oglobin determination [facility] Measurement of gluco se 2 hours after glucose challenge for glucose tolerance test [facility] Measurement of keton es in urine using dipstick [facility] Microscopic urinalysis [facility] Neisseria gonorrhoea e rRNA [Presence] in Unspecified specimen by DEVENDRA with probe detection [facility] Neutrophil count [facility] Neutrophil percent differential count [facility] Organism count, micr oscopic method [facility] Path report.final Dx Spec [facility] Patient Education [facility] Work Phone: Patient referral [facility] Work Phone: PCR test for Chlamyd ia trachomatis [facility] pH of Urine [facility] Platelets [#/volume] in Blood [facility] Red blood cell count [facility] Red cell distributio n width determination [facility] Serologic test for syphilis [facility] Specific gravity of Urine [facility] Streptococcus agalac tiae [Presence] in Unspecified specimen by Organism specific culture [facility] Urine culture [facility] Urine culture [facility] Urine culture [facility] Urine culture [facility] Urine dipstick for glucose [facility] Urine dipstick for leukocyte esterase [facility] Urine dipstick for nitrite [facility] Urine dipstick for protein [facility] Urine examination [facility] Urine microscopy: epithelial cells [facility] Urine microscopy: red cells [facility] Urobilinogen [Presen ce] in Urine [facility] White blood cell count [facility] Immunizations Immunization Date Immunization Notes Care Provider Fa cili 02-18-2025 tetanus toxoid, redu octavio diphtheria toxoid, and acellular pertussis vaccine, adsorbed No Primary Care Physician [facility] 06-16-2024 tetanus toxoid, redu octavio diphtheria toxoid, and acellular pertussis vaccine, adsorbed No Primary Care Physician [facility] 08-23-2021 tetanus toxoid, redu octavio diphtheria toxoid, and acellular pertussis vaccine, adsorbed DO [facility] 08-23-2021 diphtheria, tetanus toxoids and acellular pertussis vaccine, unspecified formulation DO [facility] Work Phone: Payers Date Payer Category Payer Unknown [id number] 2024 Self-pay [id number] 2024 Unknown [id number] Unknown [id number] Unknown [id number] Unknown [id number] 2.16.8 40.1.070042.3.579.2.462 Unknown [id number] 2.16.8 40.1.709967.3.579.2.462 Unknown [id number] 2.16.8 40.1.142889.3.579.2.462 Unknown [id number] 2.16.8 40.1.126734.3.579.2.462 Unknown [id number] 2.16.8 40.1.315165.3.579.2.462 Unknown [id number] 2.16.8 40.1.906706.3.579.2.462 Unknown [id number] 2.16.8 40.1.322065.3.579.2.462 Unknown [id number] 2.16.8 40.1.984058.3.579.2.462 Unknown [id number] 2.16.8 40.1.482094.3.579.2.462 Unknown [id number] 2.16.8 40.1.203530.3.579.2.462 Unknown [id number] 2.16.8 40.1.970201.3.579.2.462 Unknown [id number] 2.16.8 40.1.383213.3.579.2.462 Unknown [id number] 2.16.8 40.1.206797.3.579.2.462 Unknown [id number] 2.16.8 40.1.310476.3.579.2.462 Unknown [id number] 2.16.8 40.1.015382.3.579.2.462 Unknown [id number] 2.16.8 40.1.631780.3.579.2.462 Unknown [id number] 2.16.8 40.1.750445.3.579.2.462 Unknown [id number] 2.16.8 40.1.092645.3.579.2.462 Unknown [id number] 2.16.8 40.1.940047.3.579.2.462 Unknown [id number] 2.16.8 40.1.824499.3.579.2.462 Unknown [id number] 2.16.8 40.1.632205.3.579.2.462 Unknown [id number] 2.16.8 40.1.731512.3.579.2.462 Unknown [id number] 2.16.8 40.1.048602.3.579.2.462 Unknown [id number] 2.16.8 40.1.985528.3.579.2.462 Unknown [id number] 2.16.8 40.1.574778.3.579.2.462 Unknown [id number] 2.16.8 40.1.422096.3.579.2.462 Unknown [id number] 2.16.8 40.1.714261.3.579.2.462 Unknown [id number] 2.16.8 40.1.383047.3.579.2.462 Unknown [id number] 2.16.8 40.1.686124.3.579.2.462 Unknown [id number] 2.16.8 40.1.698402.3.579.2.462 Social History Date Type Detail Facility Start: 10-12-2021 End: 08-15-2023 Tobacco smoking status [facility] Unknown if ever smoked [facility] Start: 2000 Sex Assigned At Female [facility] Start: 08-30-2024 End: 10-25-2024 Tobacco smoking status NHIS Ex-smoker (finding) [facility] Start: 08-30-2024 End: 10-07-2024 Sex Female (finding) [facility] Mental Status Date Assessment Result Facility 11-07-2021 Cognitive function Level Of Cons ciousness Appropriate [facility] Work Phone: 11-06-2021 Cognitive function Arousable To Voice/Nam e [facility] Work Phone: Clinical Notes 08-29-2024 to 03-03-2025 Note Date & Type Note Facility 03-03-2025 Radiology Diagnostic study note [facility] Imaging Services [address] [place], [place] [address] OB Biophysical Prof W/O NST MR#: [id number] Acct: [id number] Name: QUAN RODGERS KELTON Rep #: [id number] : 2000 F 25 From: Jo Woods MD PCP: Care Physician,No Primary Status: REG CLI Study:OB Biophysical Prof W/O NST Date of Exa m: 03/03/25 Exam# [id number] Ordering Dr: Renate La MD PROCEDURE: OB BIOPHYSICAL PROF W/O NST 03/03/2025 REASON FOR EXAM: NONREACTIVE NST TECHNIQUE: Procedure Code: USBIOWO Modality: US Procedure: OB BIOPHYSICAL PROF W/O NST COMPARISON: None FINDINGS Biophysical score of 8/8. Cephalic position. Amniotic fluid is within normal limits. Largest fluidpocket is 7 cm. ALONDRA of 17.4 cm. heart rate of 137 beats per minute. Placenta is anterior position, not low lying. No placenta previa or abruptio. Placenta grade of 1 with subtle indentation of chorionic plate. US/OB Biophysical Prof W/O NST IMPRESSION: Biophysical score of 8 of 8. Reading [id number] CC: Dr. Renate Handley MD; No Primary Care Physician ~ Wire Threader: Signed [facility] 02-18-2025 Progress note [facility] 02-18-2025 Progress note Note Date/Time February 18, 2025 2:59pm [facility] [address] [place] [address], [address] [place] [address] OFFICE VISIT Date of Service: 02/18/25 MR#: [id number] Acct: [id number] Name: QUAN RODGERS KELTON Rep #: [id number] : 2000 Provider: Dr. Dameon Handley MD Age/Sex: 25/F [place] [facility] [place]: Signed Intake Vital Signs 01/06/25 14:59 02/03/25 10:41 02/13/25 11:44 02/18/25 14:45 Height 5 ft 10 in 5 ft 10 in 5 ft 10 in 5 ft 10 in Weight: 270 lb 1 oz BMI 38.7 BP 106/59 L Intake Visit Reasons: 34 wk ob *SM Csection Music Worker Required: No Is patient in pain?: No Feel stressed/tense/nervous/anxious/difficulty sleeping: not at all Allergies No Known Allergies Allergy (Verified 02/13/25 11:48) Medications ?Medication ?Instructions ?Recorded ?Confirmed ?Type NK 01/23/25 02/18/25 History Last Menstrual Period: 06/24/24 : No PFSH PFSH Medical History Chorioamnionitis delivery delivered Surgical History History of section History of surgery Social History adopted: No household members: children and other details: mom housing: house number of children: 1 current occupational status: employed current occupation: [employer] @ [employer] current occupational exposures/hazards: No pets and [...] times per week duration: < 15 minutes/day aly/taoist: None seatbelt use: always do you feel [...] - full term 8lbs 14oz Male epidural [facility] Renate Handley Max Delivery Date: 11/06/21 Last Updated by: Adri Kimble, RN LTCS SM AOD 6 cm boy Babak IOL 41 HPI 34 wk ob *SM Csection Details: QUAN RODGERS is a 25 year old who presents for routine OB visit. OB Visit LINDA Calculator Estimated Delivery Date Method Current WG Current Estimate 03/31/25 LMP (Certain) 34w 1d Other Estimates 03/30/25 Ultrasound #1 34w 2d Expected Delivery Route/Plan Repeat C/S with SM [...] od fm no reuglar ctx desires steriliation 01/23/25 -?-?-?-?-?-?-?-?-?-?-?-?- 30w 3d 264 lb 4 oz (+5 lb 4 oz) 112/73 -?-?-?-?-?-?-?-?-?-?-?-?- 140 31 -?-?-?-?-?-?-?-?-?-?-?-?- SM- no vb lof go od fm no reuglar ctx 02/03/25 -?-?-?-?-?-?-?-?-?-?-?-?- 32w 0d 264 lb 8 oz (+5 lb 8 oz) 118/81 Negative -?-?-?-?-?-?-?-?-?-?-?-?- Negative 140 32 -?-?-?-?-?-?-?-?-?-?-?-?- SM- no vb lof go od fm n oruglar ctx co back alberto ntrouble sleeping some headaches 02/18/25 -?-?-?-?-?-?-?-?-?-?-?-?- 34w 1d 270 lb 1 oz (+11 lb 1 oz) 106/59 -?-?-?-?-?-?-?-?-?-?-?-?- 140 34 -?-?-?-?-?-?-?-?-?-?-?-?- SM- no vb lof go od fm no regular ctx ACOG First Trimester First Trimester: Desire for [...] normal to inspection Palpation: soft and nontender Immunizations Boostrix Tdap 2.5 Lf unit-8 mcg-5 Lf/0.5 mL intramuscular syringe Performing Provider: Renate Hnadley MD Performing Location: [facility] Administered by: Geneva Long on 02/18/25 14:56 Dose Route Admin Location Dispensed Lot Number Expiration Date NDC [place] 0.5 mL IM Left Deltoid 0.5 mL [id number] 02/23/27 68099-964-95 [employer] VIS Given Date VIS Provided VIS Publication Date 02/18/25 Single Vaccine 24 Eligibility Eligibility Date Funding Source Not Applicable Coding Level of Care Code Off vis,est,level 3 Diagnoses Sterilization Z30.2 Pelvic pain affecting O26.899; R10.2 Family history of autism Z81.8 History of delivery, currently O34.219 Obesity affecting in second trimester, unspecified obesity type O99.212 Obesity type affecting : unspecified obesity Trimester: second trimester Supervision of high risk in second trimester O09.92 Trimester: second trimester 34 weeks gestation of Z3A.34 Weeks of gestation: 34 weeks Assessment and Plan Assessment and Plan (1) Sterilization: Status: Acute Comment: title 19 signed 01/06 (2) Pelvic pain affecting : Status: Acute (3) Family history of autism: Status: Acute Comment: FOB sister (4) History of delivery, currently : Status: Acute Comment: x1, Desires rpt csec with SM, c/s 03/24. (5) Obesity affecting : Status: Acute Qualifiers: Obesity type affecting : unspecified obesity Trimester: second trimester Qualified Code(s): O99.212 - Obesity complicating , second trimester Comment: BMI: 35.6; HgBA1C ordered w/NOB (6) Supervision of high-risk : Status: Acute Qualifiers: Trimester: second trimester Qualified Code(s): O09.92 - Supervision of high risk , unspecified, second trimester Comment: PRR, , LINDA 03/31/25 Girl, Rao PC: Babak, : Adolph (7) : Status: Acute Qualifiers: Weeks of gestation: 34 weeks Qualified Code(s): Z3A.34 - 34 weeks gestation of Comment: Discussed genetic/carrier testing - prior carrier done. Panorama low risk-female. unremarkable anatomy, consistent dates Orders: Orders POC Urinalysis 2 Dip (Clinic) Today Tdap Immunization Today Z23 - Encounter for immunization Medications: New Boostrix Tdap (diphth,pertus(acell),tetanus) 0.5 mL IM ONCE 1 mL 0RF NS Z23 - Encounter for immunization 02/18/25 1459 <Electronically signed by Renate joseph MD> Date _ Renate Handley MD Cosigner Signature: Date (if applicable) CC: ~ [facility] Work Phone: 1(420) 324-457308-15-2025 Radiology Diagnostic study note [facility] Imaging Services [address] [place] [address] OB Limited With Biometrics MR#: [id number] Acct: [id number] Name: QUAN RODGERS KELTON Rep #: [id number] : 2000 F 25 From: Fercho Diallo MD PCP: Care Physician,No Primary Status: REG CLI Study:OB Limited With Biometrics Date of Exam : 02/07/25 Exam# [id number] Ordering Dr: Renate La MD PROCEDURE: OB LIMITED WITH BIOMETRICS N/A REASON FOR EXAM: FETA GROWTH TECHNIQUE: OB LIMITED WITH BIOMETRICS COMPARISON: November 12, 2024. FINDINGS Number: 1 Position: Vertex Placental Position: Anterior and not low-lying. Placental Abnormalities: No evidence of previa. DIMENSIONS: Biparietal Diameter: 8.12 cm: 32 weeks and 4 days: 44 percentile/ Head Circumference: 30.85 cm: 34 weeks and 3 days: 63rd percentile/ Abdominal Circumference: 27.76 cm: 31 weeks and 6 days: 28 percentile/ Femur Length: 6.41 cm: 33 weeks and 1 day: 52nd percentile/ ESTIMATED WEIGHT: 1974 g plus/-296 g ESTIMATED WEIGHT PERCENTILE (24+ weeks): 36 ESTIMATED GESTATIONAL AGE: Baseline: 32 weeks and 4 days By Ultrasound: 33 weeks and 4 days ESTIMATED DATE OF DELIVERY: Baseline: March 31, 2025 By Ultrasound: March 24, 2025 BIOPHYSICAL ASSESSMENT: Amniotic Fluid Volume: 5.1 cm Amniotic Fluid Index: 14.9 (8-24 cm normal range) Cardiac Motion: 130 beats per minute (average) Trunk and Limb Motion: Present. US/OB Limited With Biometrics IMPRESSION: Single live intrauterine gestation with a mean gestational age of 32 weeks. Themeasurements obtained today fall within normal expected range. Reading Location: [facility] CC: Dr. Renate Handley MD; No Primary Care Physician ~ Wire Threader: Signed [facility]08-11-2025 [facility] [address], [address] [place] [address] OFFICE VISIT Date of Service: 02/03/25 MR#: [id number] Acct: [id number] Name: QUAN RODGERS Rep #: [id number] : 2000 Provider: Dr. Dameon Handley MD Age/Sex: 25/F [place] [facility] [place]: Signed Intake Vital Signs 11/21/24 10:42 01/23/25 10:44 02/03/25 10:41 Height 5 ft 11 in 5 ft 10 in 5 ft 10 in Weight: 264 lb 8 oz BMI 37.9 BP 118/81 H Intake Visit Reasons: 32 wk ob *SM Csection Music Worker Required: No Is patient in pain?: No Allergies No Known Allergies Allergy (Verified 02/03/25 10:40) Medications ?Medication ?Instructions ?Recorded ?Confirmed ?Type NK 01/23/25 02/03/25 History Last Menstrual Period: 06/24/24 Zika: Zika virus screening: Negative : No PFSH PFSH Medical History Chorioamnionitis delivery delivered Surgical History History of section History of surgery Social History adopted: No household members: children and other details: mom housing: house number of children: 1 current occupational status: employed current occupation: [employer] @ [employer] current occupational exposures/hazards: No pets and [...] times per week duration: < 15 minutes/day aly/taoist: None seatbelt use: always do you feel [...] 6 cm boy Babak IOL 41 HPI 32 wk ob *SM Csection Details: QUAN RODGERS is a 25 year old who presents for routine OB visit. OB Visit LINDA Calculator Estimated Delivery Date Method Current WG Current Estimate 03/31/25 LMP (Certain) 32w 0d Other Estimates 03/30/25 Ultrasound #1 32w 1d Expected Delivery Route/Plan Repeat C/S with Specific Issue/Plans Covid status: [] Flu vaccine: [] Tdap vaccine: [] Rhogam: [] LARC form signed: [] Problem list reviewed and updated with the most current plan of care details andappropriate orders placed. Relevant counseling for the gestational age provided. Continue routine care and follow up unless otherwise noted in visit notes/problem list details Initial Weight: 259 lb Date -?-?-?-?-?-?-?-?-?-?--?-?- EGA Weight BP Urine Prot -?-?-?-?-?-?-?-?-?-?-?-?- Glucose FHR FuHt Pres Dilation -?-?-?-?-?-?-?-?-?-?-?-?- Effaced St Visit Note 08/29/24 -?-?-?-?-?-?-?-?-?-?-?-?- 9w 3d 259 lb 6 oz (+6 oz) 121/78 -?-?-?-?-?-?-?-?-?-?-?-?- 168 -?-?-?-?-?-?-?-?-?-?-?-?- KW- CRL cons wit h dates. Declines NIPT. requesting 39 week RC/S 09/04/24 -?-?-?-?-?-?-?-?-?-?-?--?- 10w 2d 255 lb 4 oz (-3 [...] of 4.4 cm. placenta posterior and not lowlying. UA showed + 1 protein, no blood or ketones. Sending to to L&D for tocometer and possibleCT or KUB to rule out kidney stone. 01/06/25 -?-?-?-?-?-?-?-?-?-?-?-?- 28w 0d 260 lb 8 oz (+1 lb 8 oz) 108/73 -?-?-?-?-?-?-?-?-?-?-?-?- 145 28 -?-?-?-?-?-?-?-?-?-?-?-?- SM- no vb lof go od fm no reuglar ctx desires steriliation 01/23/25 -?-?-?-?-?-?-?-?-?-?-?-?- 30w 3d 264 lb 4 oz (+5 lb 4 oz) 112/73 -?-?-?-?-?-?-?-?-?-?-?-?- 140 31 -?-?-?-?-?-?--?-?-?-?-?-?- SM- no vb lof go od fm no reuglar ctx 02/03/25 -?-?-?-?-?-?-?-?-?-?-?-?- 32w 0d 264 lb 8 oz (+5 lb 8 oz) 118/81 -?-?-?-?-?-?-?-?-?-?-?-?- 140 32 -?-?-?-?-?-?-?-?-?-?-?-?- SM- no vb lof go od fm n oruglar ctx co back alberto ntrouble sleeping some headaches ACOG First Trimester First Trimester: Desire for [...] of Care Code Off vis,est,level 3 Diagnoses Sterilization Z30.2 Pelvic pain affecting O26.899; R10.2 Family history of autism Z81.8 History of delivery, currently O34.219 Obesity affecting in second trimester, unspecified obesity type O99.212 Obesity type affecting : unspecified obesity Trimester: second trimester Supervision of high risk in second trimester O09.92 Trimester: second trimester 32 weeks gestation of Z3A.32 Weeks of gestation: 32 weeks Assessment and Plan Assessment and Plan (1) Sterilization: Status: Acute Comment: title 19 signed 01/06 (2) Pelvic pain affecting : Status: Acute (3) Family history of autism: Status: Acute Comment: FOB sister (4) History of delivery, currently : Status: Acute Comment: x1, Desires rpt csec with SM, c/s 03/24. (5) Obesity affecting : Status: Acute Qualifiers: Obesity type affecting : unspecified obesity Trimester: secondtrimester Qualified Code(s):O99.212 - Obesity complicating , second trimester Comment: BMI: 35.6; HgBA1C ordered w/NOB (6) Supervision of high-risk : Status: Acute Qualifiers: Trimester: second trimester Qualified Code(s): O09.92 - Supervision of high risk , unspecified, second trimester Comment: PRR, , LINDA 03/31/25 Girl, Rao PC: Babak, : Adolph (7) : Status: Acute Qualifiers: Weeks of gestation: 32 weeks Qualified Code(s): Z3A.32 - 32 weeks gestation of Comment: Discussed genetic/carrier testing - prior carrier done. Panorama low risk- female. unremarkable anatomy, consistent dates Orders: Orders POC Urinalysis 2 Dip (Clinic) Today 02/03/25 Stanislaw joseph MD> Date _ Renate Handley MD [facility] Signature: Date (if applicable) CC: ~ [id number] [facility] [address] [place] [address], [address] [place] [address] OFFICE VISIT Date of Service: 01/23/25 MR#: [id number] Acct: [id number] Name: QUAN RODGERS Rep #: [id number] : 2000 Provider: Dr. Dameon Handley MD Age/Sex: 24/F [place] [facility] [place]: Signed Intake Vital Signs 10/21/24 08:39 11/21/24 10:42 01/06/25 14:59 01/23/25 10:44 Height 5 ft 11 in 5 ft 11 in 5 ft 10 in 5 ft 10 in Weight: 264 lb 4 oz BMI 37.9 BP 112/73 Intake Visit Reasons: 30wk ob *SM Csection Music Worker Required: No Is patient in pain?: No Allergies No Known Allergies Allergy (Verified 01/23/25 10:48) Medications ?Medication ?Instructions ?Recorded ?Confirmed ?Type NK 01/23/25 01/23/25 History Last Menstrual Period: 06/24/24 Zika: Zika virus screening: Negative : No PFSH PFSH Medical History Chorioamnionitis delivery delivered Surgical History History of section History of surgery Social History adopted: No household members: children and other details: mom housing: house number of children: 1 current occupational status: employed current occupation: [employer] @ [employer] current occupational exposures/hazards: No pets and [...] times per week duration: < 15 minutes/day aly/taoist: None seatbelt use: always do you feel [...] 6 cm boy Babak IOL 41 HPI 30wk ob *SM Csection Details: QUAN RODGERS is a 24 year old who presents for routine OB visit. OB Visit LINDA Calculator Estimated Delivery Date Method Current WG Current Estimate 03/31/25 LMP (Certain) 30w 3d Other Estimates 03/30/25 Ultrasound #1 30w 4d Expected Delivery Route/Plan Repeat C/S with [...] Date -?-?-?-?-?-?-?-?-?-?-?-?- EGA Weight BP Urine Prot -?-?-?-?-?-?--?-?-?-?-?-?- Glucose FHR FuHt Pres Dilation -?-?-?-?-?-?-?-?-?-?-?-?- Effaced [...] Negative 146 0 -?-?-?-?-?-?-?-?-?-?-?-?- JV- patient is b eing seen urgently today for pelvic pain. She woke up with alberto n that was moderate to severe JV- patient is being seen ur gently today for pelvic pain. She woke up with pain that was moderate to severe. Her anatomy scan showed a cl of 4.4 cm. placenta posterior and not lowlying. UA showed + 1 protein, no blood or ketones. Sending to to L&D for tocometer and possibleCT or KUB to rule out kidney stone. 01/06/25 -?-?-?-?-?-?-?-?-?-?-?-?- 28w 0d 260 lb 8 oz (+1 lb 8 oz) 108/73 -?-?-?-?-?-?-?-?-?-?-?-?- 145 28 -?-?-?-?-?-?-?-?-?-?-?-?- SM- no vb lof go od fm no reuglar ctx desires steriliation 01/23/25 -?-?-?-?-?-?-?-?-?-?-?-?- 30w 3d 264 lb 4 oz (+5 lb 4 oz) 112/73 -?-?-?-?-?-?-?-?-?-?-?-?- 140 31 -?-?-?-?-?-?-?-?-?-?-?-?- SM- no vb lof go od fm no reuglar ctx ACOG First Trimester First Trimester: Desire for [...] of Care Code Off vis,est,level 3 Diagnoses Sterilization Z30.2 Pelvic pain affecting O26.899; R10.2 Family history of autism Z81.8 History of delivery, currently O34.219 Obesity affecting in second trimester, unspecified obesity type O99.212 Obesity type affecting : unspecified obesity Trimester: second trimester Supervision of high risk in second trimester O09.92 Trimester: second trimester 30 weeks gestation of Z3A.30 Weeks of gestation: 30 weeks Assessment and Plan Assessment and Plan (1) Sterilization: Status: Acute Comment: title 19 signed 01/06 (2) Pelvic pain affecting : Status: Acute (3) Family history of autism: Status: Acute Comment: FOB sister (4) History of delivery, currently : Status: Acute Comment: x1, Desires rpt csec with SM, c/s 03/24. (5) Obesity affecting : Status: Acute Qualifiers: Obesity type affecting : unspecified obesity Trimester: second trimester Qualified Code(s): O99.212 - Obesity complicating , second trimester Comment: BMI: 35.6; HgBA1C ordered w/NOB (6) Supervision of high-risk : Status: Acute Qualifiers: Trimester: second trimester Qualified Code(s): O09.92 - Supervision of high risk , unspecified, second trimester Comment: PRR, , LINDA 03/31/25 Girl, Rao PC: Babak, : Adolph (7) : Status: Acute Qualifiers: Weeks of gestation: 30 weeks Qualified Code(s): Z3A.30 - 30 weeks gestation of Comment: Discussed genetic/carrier testing - prior carrier done. Panorama low risk- female. unremarkable anatomy, consistent dates Orders: Orders POC Urinalysis 2 Dip (Clinic) Today 01/23/25 1118 jake SANTOS> Date _ Renate Hnadley MD [facility] Signature: Date (if applicable) CC: ~ [facility]07-14-2025 [facility] [address] [place] [address], [address] [place] [id number] OFFICE VISIT Date of Service: 01/06/25 MR#: [id number] Acct: [id number] Name: QUAN RODGERS Rep #: [id number] : 2000 Provider: Dr. Dameon Handley MD Age/Sex: 24/F [place] [facility] [place]: Signed Intake Vital Signs 10/21/24 08:39 11/21/24 10:42 12/25/24 09:54 01/06/25 14:59 Height 5 ft 11 in 5 ft 11 in 5 ft 10 in 5 ft 10 in Weight: 260 lb 8 oz BMI 37.3 BP 108/73 Intake Visit Reasons: 28wk ob/glucose Music Worker Required: No Is patient in pain?: No [...] 1 current occupational status: employed current occupation: [employer] @ [employer] current occupational exposures/hazards: No pets and [...] times per week duration: < 15 minutes/day aly/taoist: None seatbelt use: always do you feel [...] - full term 8lbs 14oz Male epidural [facility] Renate Farfan Delivery Date: 11/06/21 Last Updated [...] of 4.4 cm. placenta posterior and not lowlying. UA showed + 1 protein, no blood or ketones. Sending to to L&D for tocometer and possibleCT or KUB to rule out kidney stone. [...] 03/31/25 Girl, Rao PC: Babak, : Max (6) : Status: Acute Qualifiers: Weeks of gestation: 28 weeks Qualified Code(s): Z3A.28 - 28 weeks gestation of Comment: Discussed genetic/carrier testing - prior carrier done. Panorama low risk- female. unremarkable anatomy, consistent dates (7) Sterilization: Status: Acute Comment: title 19 signed 01/06 Orders: Orders POC Urinalysis 2 Dip (Clinic) Today 01/06/25 1529 jake SANTOS> Date _ Renate Handley MD Cosigner Signature: Date (if applicable) CC: ~ [facility]07-14-2025 Progress note Author Renate Handley [facility] Note Date/Time January 06, 2025 3:[address] [facility] [address] [place] [address], [address] [place] [address] OFFICE VISIT Date of Service: 01/06/25 MR#: [id number] Acct: [id number] Name: QUAN RODGERS KELTON Rep #: [id number] : 2000 Provider: Dr. Dameon Handley MD Age/Sex: 24/F [place] [facility] [place]: Signed Intake Vital Signs 10/21/24 08:39 11/21/24 10:42 12/25/24 09:54 01/06/25 14:59 Height 5 ft 11 in 5 ft 11 in 5 ft 10 in 5 ft 10 in Weight: 260 lb 8 oz BMI 37.3 BP 108/73 Intake Visit Reasons: 28wk ob/glucose Music Worker Required: No Is patient in pain?: No [...] occupational status: employed 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[employer] current occupational exposures/hazards: No pets and animals: [...] times per week duration: < 15 minutes/day aly/taoist: None seatbelt use: always do you feel [...] Negative 146 0 -?-?-?-?-?-?-?-?-?-?-?-?- JV- patient is b eing seen urgently today for pelvic pain. She [...] low risk- female. unremarkable anatomy, consistent dates (7) Sterilization: Status: Acute Comment: title 19 signed 01/06 Orders: Orders POC Urinalysis 2 Dip (Clinic) Today 01/06/25 5848 <Electronically signed by Renate joseph MD> Date _ Renate Handley MD Cosign Signature: Date (if applicable) CC: ~ [facility] Work Phone: 1(467) 239-950007-02-2025 Radiology Diagnostic study note [facility] Imaging Services [address] [place], [place] [address] Transvaginal w/Preg US MR#: [id number] Acct: [id number] Name: QUAN RODGERS KELTON Rep #: [id number] : 2000 F 24 From: Kevin Kidd MD PCP: Care Physician,No Primary Status: REG CLI Study:Transvaginal w/Preg US Date of Exam: 12/25/24 Exam# [id number] Ordering Dr: Raven Sandoval DO PROCEDURE: TRANSVAGINAL [...] minute. Left ovary not evaluated Reading Location: [id number] CC: Dr. Raven Modi DO; No Primary Care Physician ~ Wire Threader: Signed [facility]07-02-2025 Radiology Diagnostic study note [facility] Imaging Services [address] [place] [address] [id number] Kidney and Bladder MR#: [id number] Acct: [id number] Name: QUAN RODGERS KELTON Rep #: [id number] : 2000 F 24 From: Kevin Kidd MD PCP: Care Physician,No Primary Status: REG CLI Study:Kidney and Bladder Date of Exam: 0 12/25/24 Exam# [id number] Ordering Dr: Raven Sandoval DO PROCEDURE: KIDNEY [...] or suspicious solid renal lesion. Reading Location: [id number] CC: Dr. Raven Modi, DO; No Primary Care Physician ~ Wire Threader: Signed [facility]06-27-2025 Progress [facility] [address], [address] [place] [address] OFFICE VISIT Date of Service: 12/20/24 MR#: [id number] Acct: [id number] Name: QUAN RODGERS KELTON Rep #: [id number] : 2000 Provider: KEO Eli Age/Sex: 24/F Location: 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 N julissamaryse jefferson, refugio helpful 11/21/24 -?-?-?-?-?-?-?-?-?-?-?-?- 21w 3d [...] 12/20/24 0851 meme CNM> Date _ Dariana Sreedhar CROWLEY Cosigner Signature: Date (if applicable) CC: ~ [facility]05-29-2025 Evaluation note* Diagnosis Onset Date Resolution Status Admit Date Family history of autism acute November 21, [...] January 06, 2025 2:40pm Pelvic pain affecting acute January 06, 2025 2:40pm acute January 06 2:40pm Sterilization acute January 06, 2025 2:40pm Supervision of high-risk acute January 06, 2025 2:40pm Family history of autism acute January 23, 2025 10:31am History of delivery , currently acute January 23 10:31am Obesity affecting acute January 23, 2025 10:31am Pelvic pain affecting acute January 23, 2025 10:31am acute January 23 10:31am Sterilization acute January 23, 2025 10:31am Supervision of high-risk acute January 23, 2025 10:31am Family history of autism acute 2025 10:38am History of delivery , currently acute 2025 10:38am Obesity affecting acute 2025 10:38am Pelvic pain affecting acute February 03 10:38am acute February 03, 025 10:38am Sterilization acute January 10:38am Supervision of high-risk acute February 03 10:38am Family history of autism acute February 18, 2025 2:41pm History of delivery , currently acute February 18, 2025 2:41pm Obesity affecting acute February 18, 2025 2:41pm Pelvic pain affecting acute February 18 2:41pm acute February 18, 2 025 2:41pm Sterilization acute January 2:41pm Supervision of high-risk acute February 18 2:41pm Family history of autism acute March 03, 2025 1:33pm History of delivery , currently acute February 1:33pm Obesity affecting acute March 03, 2025 1:33pm Pelvic pain affecting acute March 03, 2 025 1:33pm acute March 03, 2025 1:33pm Sterilization acute March 032024 1:33pm Supervision of high-risk acute March 03, 2 025 1:33pm [facility] Work Phone: 1(439) 590-732605-29-2025 Progress [facility] [address] [address], [address] [place] [address] OFFICE VISIT Date of Service: 11/21/24 MR#: [id number] Acct: [id number] Name: QUAN RODGERS KELTON Rep #: [id number] : 2000 Provider: Dr. Dameon Handley MD Age/Sex: 24/F [place] [facility] [place]: Signed Intake Vital Signs 09/26/24 13:48 10/25/24 18:55 11/21/24 10:42 Height 5 ft 11 in 5 ft 11 in 5 ft 11 in Weight: 259 lb BMI 36.1 BP 113/68 Intake Visit Reasons: 21wk ob Music Worker Required: No Is patient in pain?: No [...] 1 current occupational status: employed current occupation: [employer] @ [employer] current occupational exposures/hazards: No pets and [...] times per week duration: < 15 minutes/day aly/taoist: None seatbelt use: always do you feel [...] jake SANTOS> Date _ Renate Handley MD Cosign Signature: Date (if applicable) CC: ~ [facility]05-21-2025 Radiology Diagnostic study note [facility] Imaging Services [address] [place], [place] [id number] OB Anatomy w/ Transvaginal MR#: [id number] Acct: [id number] [facility] Rep #: [id number] : 2000 F 24 From: Fercho Diallo MD PCP: Care Physician,No Primary Status: REG CLI Study:OB Anatomy w/ Transvaginal Date of Exam : 11/12/24 Exam# [id number] Ordering Dr: Geneva Wheeler ASSISTANT BUYER ASSISTANT BUYER-C PROCEDURE: OB ANATOMY W/ TRANSVAGINAL 11/12/2024 REASON [...] of 19 weeks and 4days. Reading Location: [place] [address] CC: DANIEL Wheeler; No Primary Care Physician ~ Wire Threader: Signed [facility]04-28-2025 Evaluation note* Diagnosis Onset Date Resolution Status Admit Date Family history of autism acute October 21, [...] of high-risk acute January 06, 2025 2:40pm Family history of autism acute January 23, 2025 10:31am History of delivery , currently acute January 23 10:31am Obesity affecting acute January 23, 2025 10:31am Pelvic pain affecting acut e January 23, 2025 10:31am acute January 23 10:31am Sterilization acute January 23, 2025 10:31am Supervision of high-risk acute January 23, 2025 10:31am Family history of autism acute 2025 10:38am History of delivery , currently acute 2025 10:38am Obesity affecting acute 2025 10:38am Pelvic pain affecting acut e 2025 10:38am acute February 03, 2 025 10:38am Sterilization acute January 10:38am Supervision of high-risk acute February 03 10:38am [facility] Work Phone: [phone]) 738-546904-28-2025 Evaluation note* Diagnosis Onset Date Resolution Status Admit Date Family history of autism acute October 21, [...] of delivery , currently acute December 20 25 8:28am Obesity affecting acute December 20, 2024 [...] of high-risk acute January 06, 2025 2:40pm Family history of autism acute January 23, 2025 10:31am History of delivery , currently acute January 23 10:31am Obesity affecting acute January 23, 2025 10:31am Pelvic pain affecting acut e January 23, 2025 10:31am acute January 23 10:31am Sterilization acute January 23, 2025 10:31am Supervision of high-risk acute January 23, 2025 10:31am Family history of autism acute 2025 10:38am History of delivery , currently acute 2025 10:38am Obesity affecting acute 2025 10:38am Pelvic pain affecting acut e 2025 10:38am acute February 03, 025 10:38am Sterilization acute January 10:38am Supervision of high-risk acute February 03 10:38am Family history of autism acute February 18, 2025 2:41pm History of delivery , currently acute February 18, 2025 2:41pm Obesity affecting acute February 18, 2025 2:41pm Pelvic pain affecting acut e February 18, 2025 2:41pm acute February 18, 2 025 2:41pm Sterilization acute January 2:41pm Supervision of high-risk acute February 18 2:41pm [facility] Work Phone: 1(156) 141-483504-03-2025 Evaluation note* Diagnosis Onset Date Resolution Status [...] of high-risk acute January 06, 2025 2:40pm [facility] Work Phone: [phone]) 111-992404-03-2025 Evaluation note* Diagnosis Onset Date Resolution Status [...] of high-risk acute January 06, 2025 2:40pm Family history of autism acute January 23, 2025 10:31am History of delivery , currently acute January 23 10:31am Obesity affecting acute January 23, 2025 10:31am Pelvic pain affecting acut e January 23, 2025 10:31am acute January 23 10:31am Sterilization acute January 23, 2025 10:31am Supervision of high-risk acute January 23, 2025 10:31am [facility] Work Phone: [phone] Evaluation note* Diagnosis Onset Date Resolution Status [...] high-risk acute December 25, 2024 9 :30am [facility] Work Phone: 1([phone]) 197-955103-07-2025 Discharge summary [facility] Medical Records Department [address] [place] [address] Emergency Department Summary 08/30/24 MR#: [id number] Acct: [id number] Name: QUAN RODGERS KELTON Rep #:[id number] : 2000 24 From: Christiano Villafuerte MD PCP: Care Physician,No Primary Status :REG ER Location: ED HPI HPI - GI History of Present Illness Chief Complaint: Abd Pain Informant: patient and PCP (OB Dr. aHndley) Narrative Narrative: 24-year-old female states she started having left lower pelvic/abdominal pain about 4 or 5 hours ago. She is 9 weeks . She states earlier today she had a checkup in the office and multiple tube winding machine operator didan ultrasound and told her she had [...] 1 current occupational status: employed current occupation: [employer] @ [employer] current occupational exposures/hazards: No pets and [...] times per week duration: < 15 minutes/day aly/taoist: None seatbelt use: always do you feel [...] hr 08/30/24 08/30/24 00:50 01:05 HCG, Quant 329723 H Urine Color Yellow Urine Clarity Cloudy Urine pH 6.0 Ur Specific [place] 1.025 Urine Protein 30 H Urine Glucose [...] tones 177 beats per minute.. Reading Location: [facility] Discharge Plan Triage Chief Complaint: Abd [...] mg, about every 6 hours. Print Language: Central African Disposition Disposition: Home, Self Care What to do if you have Problems For any increased pain, shortness of breath, bleeding, nausea or vomiting, chestpain, or any unexpected problems, contact your Primary Care Provider. Call [facility] ([phone]) or report tothe closest Emergency Room. Call 911 if necessary. 08/30/24 0222 Cosigner Signature (if applicable): CC: Dr. Renate Handley MD; No Primary Care Physician ~ Signed [facility]03-07-2025 Radiology Diagnostic study note [facility] Imaging Services [address] [place] [address] Transvaginal w/Preg US MR#: [id number] Acct: [id number] Name: QUAN RODGERS KELTON Rep #: [id number] : 2000 F 24 From: Stalin Lynn MD PCP: Care Physician,No Primary Status: REG ER Study:Transvaginal w/Preg US Date of Exam: 08/30/24 Exam# [id number] Ordering Dr: Geovanni Villafuerte MD PROCEDURE: TRANSVAGINAL [...] tones 177 beats per minute.. Reading Location: [id number] CC: Dr. Christiano iVllafuerte MD; No Primary Care Physician ~ Wire Threader: Signed [facility]03-06-2025 Evaluation note* Diagnosis Onset Date Resolution Status Admit Date Family history of autism acute August 29, 2024 11:05am History of delivery , currently acute August 29 11:05am Obesity affecting acute August 29, 2024 11:05am acute August 29 11:05am Supervision of high-risk acute August 29, 2024 11:05am [facility] Work Phone: [phone]) 499-875203-06-2025 Evaluation note* Diagnosis Onset Date Resolution Status [...] trimester, antepartum inactive September 04, 2024 10:51am [facility] Work Phone: [phone]) 207-814203-06-2025 Evaluation note* Diagnosis Onset Date Resolution Status Admit Date Family history of autism acute August 29, 2024 11:05am History of delivery , currently acute August 29 11:05am Obesity affecting acute August 29, 2024 11:05am acute August 29 11:05am Supervision of high-risk acute August 29, 2024 11:05am Family history of autism acute September 04, 2024 10:51am History of delivery , currently acute September 04 025 10:51am Obesity affecting acute September 04, [...] of high-risk acute September 26, 2024 1:43pm [facility] Work Phone: 1([phone]) 248-873203-06-2025 Evaluation note* Diagnosis Onset Date Resolution Status [...] of high-risk acute October 21, 2024 8:36am [facility] Work Phone: [phone]) 279-816303-06-2025 Evaluation note* Diagnosis Onset Date Resolution Status [...] of delivery , currently acute October 21 8:36am Obesity affecting acute October 21, 2024 8:36am acute October 21 8:36am Supervision of high-risk acute October 21, 2024 8:36am Family history of autism acute November 21, 2024 10:26am History of delivery , currently acute November 21 10:26am Obesity affecting acute November 21, 2024 10:26am acute November 21, 2024 10:26am Supervision of high-risk acute November 21, 2024 1 0:26am [facility] Work Phone: [phone] 489-526103-06-2025 Evaluation note* Diagnosis Onset Date Resolution Status [...] of high-risk acute December 20, 2024 8:28am [facility] Work Phone: [phone]) 183-787203-06-2025 Evaluation note* Diagnosis Onset Date Resolution Status [...] high-risk acute December 25, 2024 8 :55am [facility] Work Phone: [phone]) 452-738903-06-2025 Evaluation note* Diagnosis Onset Date Resolution Status Admit Date Family history of autism acute August 29, 2024 11:05am History of delivery , currently acute August 29 11:05am Obesity affecting acute August 29, 2024 11:05am acute August 29 11:05am Supervision of high-risk acute August 29, 2024 11:05am Family history of autism acute September 04, 2024 10:51am History of delivery , currently acute September 04 2 025 10:51am Obesity affecting acute September [...] of delivery , currently acute October 21 8:36am Obesity affecting acute October 21, 2024 [...] high-risk acute December 25, 2024 8 :55am [facility] Work Phone: 1([phone]) 193-807603-06-2025 NotePap Smear Specimen AdequacyAdena [facility] 2024 12:48pmComment.Satisfactory for evaluation. Endocervical and/or squamous metaplasticcells (endocervical component)are present.[facility] A#[id number] HospitalComment on above:Satisfactory for evaluation. Endocervical and/or squamous metaplasticcells (endocervical component)are present.08-29-2024 NotePap Smear Specimen AdequacyMar 2024 12:48pmComment.Satisfactory for evaluation. Endocervical and/or squamous metaplasticcells (endocervical component)are present.[facility] INTER[facility]ACED A#[id number] Hardin Memorial HospitalComment on above:Satisfactory for evaluation. Endocervical and/or squamous metaplasticcells (endocervical component)are present.Discharge summary Author Christiano Villafuerte [facility] Note Date/Time August 30, 2024 2:22 am [facility] Medical Records Department [address] [place] [address] Emergency Department Summary 08/30/24 MR#: [id number] Acct: [id number] Name: QUAN RODGERS KELTON Rep #:[id number] [...] had a checkup in the office and multiple tube winding machine operator did an ultrasound and told her she had an IUP. G2, . She states she was having some trouble urinating tonight 2,when she felt like she needed to go she only dribbled a little. She denies any hematuria. No dysuria. No pain in her flank or back. No nausea or vomiting. No fevers or chills. Normal bowel movements. [facility] Medical History Chorioamnionitis delivery [...] 1 current occupational status: employed current occupation: [employer] @ [employer] current occupational exposures/hazards: No pets and [...] times per week duration: < 15 minutes/day aly/taoist: None seatbelt use: always do you feel [...] hr 08/30/24 08/30/24 00:50 01:05 HCG, Quant 061728 H Urine Color Yellow Urine Clarity Cloudy Urine pH 6.0 Ur Specific [place] 1.025 Urine Protein 30 H Urine Glucose [...] tones 177 beats per minute.. Reading Location: [facility] Discharge Plan Triage Chief Complaint: Abd Pain ED Provider: Christiano Villafuerte Dx/Rx/DC Orders Clinical Impression: Pelvic pain affecting in first trimester, antepartum Instructions: ED Flank Pain, Uncertain Cause, ED Pelvic Pain, Unknown Cause, EDUrine Strainer Prescriptions: No Action NK Primary Care Provider: Care Physician,No Primary Referrals: Renate Handely MD [Med Staff - Active Staff] - [...] mg, about every 6 hours. Print Language: [place] African Disposition Disposition: Home, Self Care What to do if you have Problems For any increased pain, shortness of breath, bleeding, nausea or vomiting, chestpain, or any unexpected problems, contact your Primary Care Provider. Call [facility] ([phone]) or report to the closest Emergency Room. Call 911 if necessary. 08/30/24221 <Electronically signed by Christiano Villafuerte MD> Cosigner Signature (if applicable): CC: Dr. Renate Handley MD; No Primary Care Physician ~ Signed [facility] Work Phone: Evaluation note* Diagnosis Onset Date [...] Supervision of normal acute UTI in acute [facility] Work Phone: Evaluation note* Diagnosis Onset Date [...] Supervision of normal resolved UTI in resolved [facility] Work Phone: Evaluation note* Diagnosis Onset Date Resolution Status delivery delivered acute care and examination noneactive [facility] Work Phone: Evaluation noteNo assessment information available [facility] Work Phone: Hospital Discharge instructions Additional Instructions Keep your scheduled appointment with Dr. Renate Handley tomorrow after picking up your Depo-Provera.[facility] Work Phone: Hospital Discharge instructions Additional Instructions [...] strength Tylenol, 1000 mg, about every 6 hours.[facility] Work Phone: Hospital Discharge instructionsAdditional Instructions may use heating pad, Tylenol and warm bathsWHolzer Hospital Work Phone: Hospital Discharge instructionsAdditional Instructions keep next appointmentWHolzer Hospital Work Phone: Progress note Author Renate Handley [facility] Note Date/Time November 21, 2024 11:[address] [facility] [address], [address] [place] [address] OFFICE VISIT Date of Service: 11/21/24 MR#: [id number] Acct: [id number] Name: QUAN RODGERS KELTON Rep #: [id number] : 2000 Provider: Dr. Dameon Handley MD Age/Sex: 24/F [place] [facility] [place]: Signed Intake Vital Signs 09/26/24 13:48 10/25/24 18:55 11/21/24 10:42 Height 5 ft 11 in 5 ft 11 in 5 ft 11 in Weight: 259 lb BMI 36.1 BP 113/68 Intake Visit Reasons: 21wk ob Music Worker Required: No Is patient in pain?: No [...] 1 current occupational status: employed current occupation: [employer] @ [employer] current occupational exposures/hazards: No pets and [...] times per week duration: < 15 minutes/day aly/taoist: None seatbelt use: always do you feel [...] - full term 8lbs 14oz Male epidural [facility] Renate Handley Max Delivery Date: 11/06/21 Last Updated by: Adri Kimble RN LTCS AOD 6 cm boy Babak IOL 41 HPI 21wk ob Details: QUAN RODGERS is a 24 year old who presents for routine OB visit. OB Visit LINAD Calculator Estimated Delivery Date Method Current WG [...] Cosigner Signature: Date (if applicable) CC: ~ [facility] [employer] Work Phone: Progress note Author Darianazack Eli [facility] Note Date/Time December 20, 2024 8:[address] [facility] [address] [place] [address], [address] [place] [address] OFFICE VISIT Date of Service: 12/20/24 MR#: [id number] Acct: [id number] Name: QUAN RODGERS KELTON Rep #: [id number] : 2000 Provider: KEO Eli Age/Sex: 24/F [place] [facility] [place]: Signed Intake Vital Signs 09/26/24 13:48 11/21/24 10:42 12/20/24 08:29 Height 5 ft 11 in 5 ft 11 in 5 ft 11 in Weight: 262 lb BMI 36.5 BP 114/78 Intake Visit Reasons: 25wk ob Chief Complaint: 25wk OB Music Worker Required: No Is patient in pain?: No [...] 1 current occupational status: employed current occupation: [employer] @ [employer] current occupational exposures/hazards: No pets and [...] times per week duration: < 15 minutes/day aly/taoist: None seatbelt use: always do you feel [...] - full term 8lbs 14oz Male epidural [facility] Renate Handley Max Delivery Date: 11/06/21 Last [...] labs. Girl Unable to void this appt. refugio Stafford helpful 11/21/24 -?-?-?-?-?-?-?-?-?-?-?-?- 21w 3d 259 lb [...] History of delivery, currently O34.219 Supervision of [facility] risk in second trimester O09.92 Trimester: second [...] Cosigner Signature: Date (if applicable) CC: ~ [facility] Work Phone: Progrpyb note Author Renate Handley [facility] Note Date/Time January 23, 2025 11:[address] [facility] [address] [address], [address] [place] [address] OFFICE VISIT Date of Service: 01/23/25 MR#: [id number] Acct: [id number] Name: QUAN RODGERS KELTON Rep #: [id number] : 2000 Provider: Dr. Dameon Handley MD Age/Sex: 24/F [place] [facility] [place]: Signed Intake Vital Signs 10/21/24 08:39 11/21/24 10:42 01/06/25 14:59 01/23/25 10:44 Height 5 ft 11 in 5 ft 11 in 5 ft 10 in 5 ft 10 in Weight: 264 lb 4 oz BMI 37.9 BP 112/73 Intake Visit Reasons: 30wk ob *SM Csection Music Worker Required: No Is patient in pain?: No Allergies No Known Allergies Allergy (Verified 01/23/25 10:48) Medications ?Medication ?Instructions ?Recorded ?Confirmed ?Type NK 01/23/25 01/23/25 History Last Menstrual Period: 06/24/24 Zika: Zika virus screening: Negative : No PFSH PFSH Medical History Chorioamnionitis delivery delivered Surgical History History of section History of surgery Social History adopted: No household members: children and other details: mom housing: house number of children: 1 current occupational status: employed current occupation: [employer] @ [employer] current occupational exposures/hazards: No pets and [...] times per week duration: < 15 minutes/day aly/taoist: None seatbelt use: always do you feel [...] 6 cm boy Babak IOL 41 HPI 30wk ob *SM Csection Details: QUAN RODGERS is a 24 year old who presents for routine OB visit. OB Visit LINDA Calculator Estimated Delivery Date Method Current WG Current Estimate 03/31/25 LMP (Certain) 30w 3d Other Estimates 03/30/25 Ultrasound #1 30w 4d Expected Delivery Route/Plan Repeat C/S with [...] Date -?-?-?-?-?-?-?-?-?-?-?-?- EGA Weight BP Urine Prot -?-?-?-?-?-?--?-?-?-?-?-?- Glucose FHR FuHt Pres Dilation -?-?-?-?-?-?-?-?-?-?-?-?- Effaced [...] for pelvic pain. She woke up with alberto n that was moderate to severe JV- patient [...] od fm no reuglar ctx desires steriliation 01/23/25 -?-?-?-?-?-?-?-?-?-?-?-?- 30w 3d 264 lb 4 oz (+5 lb 4 oz) 112/73 -?-?-?-?-?-?-?-?-?-?-?-?- 140 31 -?-?-?-?-?-?-?-?-?-?-?-?- SM- no vb lof go od fm no reuglar ctx ACOG First Trimester First Trimester: Desire for [...] of Care Code Off vis,est,level 3 Diagnoses Sterilization Z30.2 Pelvic pain affecting O26.899; R10.2 Family history of autism Z81.8 History of delivery, currently O34.219 Obesity affecting in second trimester, unspecified obesity type O99.212 Obesity type affecting : unspecified obesity Trimester: second trimester Supervision of high risk in second trimester O09.92 Trimester: second trimester 30 weeks gestation of Z3A.30 Weeks of gestation: 30 weeks Assessment and Plan Assessment and Plan (1) Sterilization: Status: Acute Comment: title 19 signed 01/06 (2) Pelvic pain affecting : Status: Acute (3) Family history of autism: Status: Acute Comment: FOB sister (4) History of delivery, currently : Status: Acute Comment: x1, Desires rpt csec with SM, c/s 03/24. (5) Obesity affecting : Status: Acute Qualifiers: Obesity type affecting : unspecified obesity Trimester: second trimester Qualified Code(s): O99.212 - Obesity complicating , second trimester Comment: BMI: 35.6; HgBA1C ordered w/NOB (6) Supervision of high-risk : Status: Acute Qualifiers: Trimester: second trimester Qualified Code(s): O09.92 - Supervision of high risk , unspecified, second trimester Comment: PRR, , LINDA 03/31/25 Girl, Rao PC: Babak, : Adolph (7) : Status: Acute Qualifiers: Weeks of gestation: 30 weeks Qualified Code(s): Z3A.30 - 30 weeks gestation of Comment: Discussed genetic/carrier testing - prior carrier done. [facility] low risk- female. unremarkable anatomy, consistent dates Orders: Orders POC Urinalysis 2 Dip (Clinic) Today 01/23/25 0266 <Electronically signed by Renate joseph MD> Date _ Renate Handley MD Cosign Signature: Date (if applicable) CC: ~ [facility] Work Phone: Progress note Author Renate Handley [facility] Note Date/Time 2025 11 :07am [facility] [address], [address] [place] [address] OFFICE VISIT Date of Service: 02/03/25 MR#: [id number] Acct: [id number] Name: QUAN RODGERS KELTON Rep #: [id number] : 2000 Provider: Dr. Dameon Handley MD Age/Sex: 25/F [place] [facility] [place]: Signed Intake Vital Signs 11/21/24 10:42 01/23/25 10:44 02/03/25 10:41 Height 5 ft 11 in 5 ft 10 in 5 ft 10 in Weight: 264 lb 8 oz BMI 37.9 BP 118/81 H Intake Visit Reasons: 32 wk ob *SM Csection Music Worker Required: No Is patient in pain?: No Allergies No Known Allergies Allergy (Verified 02/03/25 10:40) Medications ?Medication ?Instructions ?Recorded ?Confirmed ?Type NK 01/23/25 02/03/25 History Last Menstrual Period: 06/24/24 Zika: Zika virus screening: Negative : No PFSH PFSH Medical History Chorioamnionitis delivery delivered Surgical History History of section History of surgery Social History adopted: No household members: children and other details: mom housing: house number of children: 1 current occupational status: employed current occupation: [employer] @ [employer] current occupational exposures/hazards: No pets and [...] times per week duration: < 15 minutes/day aly/taoist: None seatbelt use: always do you feel [...] - full term 8lbs 14oz Male epidural [facility] Renate Farfan Delivery Date: 11/06/21 Last Updated by: Adri Kimble, RN LTCS SM AOD 6 cm boy Babak IOL 41 HPI 32 wk ob *SM Csection Details: QUAN RODGERS is a 25 year old who presents for routine OB visit. OB Visit LINDA Calculator Estimated Delivery Date Method Current WG Current Estimate 03/31/25 LMP (Certain) 32w 0d Other Estimates 03/30/25 Ultrasound #1 32w 1d Expected Delivery Route/Plan Repeat C/S with SM Specific Issue/Plans Covid status: [] Flu vaccine: [] Tdap vaccine: [] Rhogam: [] LARC form signed: [] Problem list reviewed and updated with the most current plan of care details andappropriate orders placed. Relevant counseling for the gestational age provided. Continue routine care and follow up unless otherwise noted in visit notes/problem list details Initial Weight: 259 lb Date -?-?-?-?-?-?-?-?-?-?--?-?- EGA Weight BP Urine Prot -?-?-?-?-?-?-?-?-?-?-?-?- Glucose FHR FuHt Pres Dilation -?-?-?-?-?-?-?-?-?-?-?-?- Effaced St Visit Note 08/29/24 -?-?-?-?-?-?-?-?-?-?-?-?- 9w 3d 259 lb 6 oz (+6 oz) 121/78 -?-?-?-?-?-?-?-?-?-?-?-?- 168 -?-?-?-?-?-?-?-?-?-?-?-?- KW- CRL cons wit h dates. Declines NIPT. requesting 39 week RC/S 09/04/24 -?-?-?-?-?-?-?-?-?-?-?--?- 10w 2d 255 lb 4 oz (-3 [...] Unable to void this appt. Nausea persists, charanjitfrkelly helpful 11/21/24 -?-?-?-?-?-?-?-?-?-?-?-?- 21w 3d 259 lb [...] od fm no reuglar ctx desires steriliation 01/23/25 -?-?-?-?-?-?-?-?-?-?-?-?- 30w 3d 264 lb 4 oz (+5 lb 4 oz) 112/73 -?-?-?-?-?-?-?-?-?-?-?-?- 140 31 -?-?-?-?-?-?--?-?-?-?-?-?- SM- no vb lof go od fm no reuglar ctx 02/03/25 -?-?-?-?-?-?-?-?-?-?-?-?- 32w 0d 264 lb 8 oz (+5 lb 8 oz) 118/81 -?-?-?-?-?-?-?-?-?-?-?-?- 140 32 -?-?-?-?-?-?-?-?-?-?-?-?- SM- no vb lof go od fm n oruglar ctx co back alberto ntrouble sleeping some headaches ACOG First Trimester First Trimester: Desire for [...] of Care Code Off vis,est,level 3 Diagnoses Sterilization Z30.2 Pelvic pain affecting O26.899; R10.2 Family history of autism Z81.8 History of delivery, currently O34.219 Obesity affecting in second trimester, unspecified obesity type O99.212 Obesity type affecting : unspecified obesity Trimester: second trimester Supervision of high risk in second trimester O09.92 Trimester: second trimester 32 weeks gestation of Z3A.32 Weeks of gestation: 32 weeks Assessment and Plan Assessment and Plan (1) Sterilization: Status: Acute Comment: title 19 signed 01/06 (2) Pelvic pain affecting : Status: Acute (3) Family history of autism: Status: Acute Comment: FOB sister (4) History of delivery, currently : Status: Acute Comment: x1, Desires rpt csec with SM, c/s 03/24. (5) Obesity affecting : Status: Acute Qualifiers: Obesity type affecting : unspecified obesity Trimester: secondtrimester Qualified Code(s): O99.212 - Obesity complicating , second trimester Comment: BMI: 35.6; HgBA1C ordered w/NOB (6) Supervision of high-risk : Status: Acute Qualifiers: Trimester: second trimester Qualified Code(s): O09.92 - Supervision of high risk , unspecified, second trimester Comment: PRR, , LINDA 03/31/25 Girl, Rao PC: Babak, : Adolph (7) : Status: Acute Qualifiers: Weeks of gestation: 32 weeks Qualified Code(s): Z3A.32 - 32 weeks gestation of Comment: Discussed genetic[facility] - [facility]. unremarkable anatomy, consistent dates Orders: Orders POC Urinalysis 2 Dip (Clinic) Today 02/03/25 1107 <Electronically signed by Renate joseph MD> Date _ Renate Handley MD Cosigner Signature: Date (if applicable) CC: ~ [facility] [employer] Work Phone: Reason for referral (narrative)No reason for referral information [facility] Work Phone: Summary Purpose Family History No Family History Records FoundNo Family History Records FoundNo Family History Records FoundNo Family History Records Found Advance Directives No Advanced Directives Records Found Advance Directive Response Recorded Date/ Time Living Will No November 04, 2021 8 :31pm Power of Manager Primary No November 04, 2021 8:31pm Advance Directive Response Recorded Date/ Time Living Will No April 14 4:25pm Power of Manager Primary No April 14, 2022 4:25pm Advance Directive Response Recorded Date/ Time Living Will No August 15 5:50pm Power of Manager Primary No August 15, 2023 5:50pm Advance Directive Response Recorded Date/ Time Living Will No August 30, 2024 12:39am Power of Manager Primary No August 30 12:39am Living Will No June 16 8:48pm Power of Manager Primary No June 16, 2024 8:48pm Advance Directive Response Recorded Date/ Time Living Will No August 30, 2024 1:39am Power of Manager Primary No August 30 1:39am Living Will No June 16 9:48pm Power of Manager Primary No June 16, 2024 9:48pm Advance Directive Response Recorded Date/ Time Living Will No August 30, 2024 1:39am Do you have a Healthcare Power of Manager Primary? No August 30, 2024 1:39am Living Will No June 16 9:48pm Do you have a Healthcare Power of Manager Primary? No June 16, 2024 9:48pm Advance Directive Response Recorded Date/ Time Living Will No August 30, 2024 1:39am Do you have a Healthcare Power of Manager Primary? No August 30, 2024 1:39am Do you have a Healthcare Power of Manager Primary? No October 25, 2024 7:30pm Advance Directive Response Recorded Date/ Time Do you have a Healthcare Power of Manager Primary? No October 25, 2024 7:30pm Chief Complaint [...] August 09, 2024 9:04am New OB, LMP 12/30, LINDA 03/31/25August 11:05am l groin pain,9 weeks [...] August 09, 2024 9:04am New OB, LMP 12/30, LINDA 03/31/25August 11:05am l groin pain,9 weeks [...] September 26, 2024 1:43pm Obesity affecting September 26, 025 1:43pm September 26, 2024 1:43 pm [...] December 20, 2024 8:28am Obesity affecting December 20, 2 025 8:28am December 20, 2024 8:28 am [...] September 26, 2024 1:43pm Obesity affecting September 26, 2 025 1:43pm September 26, 2024 1:43 pm [...] January 06, 2025 2:40pm Obesity affecting January 06 025 2:40pm Pelvic pain affecting December 2:40pm January 06, 2025 2:40 pm Sterilization January 06, 2025 2:40 pm Supervision of high-risk January 06, 2025 2:40pm Chief Complaint Admit Date 13wk OB September [...] 28wk ob/glucose January 06, 2025 2:40 pm 30wk ob *SM Csection January 23, 2025 10: 31am Reason for Visit Admit Date Family history [...] 06, 2025 2:40pm Obesity affecting January 06, 2 025 2:40pm Pelvic pain affecting December 2:40pm January 06, 2025 2:40 pm Sterilization January 06, 2025 2:40 pm Supervision of high-risk January 06, 2025 2:40pm Family history of autism January 23, 2025 10:31am History of delivery, currently January 23, 2025 10:31am Obesity affecting January 23, 025 10:31am Pelvic pain affecting December 10:31am January 23, 2025 10:3 1am Sterilization January 23, 2025 10:3 1am Supervision of high-risk January 23, 2025 10:31am Chief Complaint Admit Date 17 wk ob October 21, 2024 8:3 [...] 28wk ob/glucose January 06, 2025 2:40 pm 30wk ob *SM Csection January 23, 2025 10: 31am 32 wk ob *SM Csection 2025 10:38am Reason for Visit Admit Date Family history of autism October 21 8:36am [...] 06, 2025 2:40pm Obesity affecting January 06, 025 2:40pm Pelvic pain affecting December 2:40pm January 06, 2025 2:40 pm Sterilization January 06, 2025 2:40 pm Supervision of high-risk January 06, 2025 2:40pm Family history of autism January 23, 2025 10:31am History of delivery, currently January 23, 2025 10:31am Obesity affecting January 23, 025 10:31am Pelvic pain affecting December 10:31am January 23, 2025 10:3 1am Sterilization January 23, 2025 10:3 1am Supervision of high-risk January 23, 2025 10:31am Family history of autism February 03 10:38am History of delivery, currently 2025 10:38am Obesity affecting 2025 10:38am Pelvic pain affecting January 242024 10:38am 2025 10 :38am Sterilization 2025 10 :38am Supervision of high-risk Augus t 2024 10:38am Chief Complaint Admit Date 17 wk ob October 21, 2024 8:3 6am NAUSEA October 25, 2024 6:54pm Supervision of high risk , [facility], November 12, 2024 12:01pm wk ob November 21, 2024 10:26 am 25wk ob December 20, 2024 8:28 am OB, pelvic pain December 25, 2024 8:55a m R/O ABDOMINAL PAIN December 25, 2024 9:30a m R/O ABDOMINAL PAIN December 25, 2024 8:23p m 28wk ob/glucose January 06, 2025 2:40 pm 30wk ob *SM Csection January 23, 2025 10: 31am 32 wk ob *SM Csection 2025 10:38am GROWTH February 07, 2025 12 :59pm R/O LABORY February 13, 2025 11 :24am Chief Complaint Admit Date 17 wk ob October 21, 2024 8:3 6am NAUSEA October 25, 2024 6:54pm Supervision of high risk , [facility], November 12, 2024 12:01pm wk ob November 21, 2024 10:26 am 25wk ob December 20, 2024 8:28 am OB, pelvic pain December 25, 2024 8:55a m R/O ABDOMINAL PAIN December 25, 2024 9:30a m R/O ABDOMINAL PAIN December 25, 2024 8:23p m 28wk ob/glucose January 06, 2025 2:40 pm 30wk ob *SM Csection January 23, 2025 10: 31am 32 wk ob *SM Csection 2025 10:38am GROWTH February 07, 2025 12 :59pm R/O LABORY February 13, 2025 11 :24am R/O LABORY February 13, 2025 1: 42pm Chief Complaint Admit Date 17 wk ob October 21, 2024 8:3 [...] 28wk ob/glucose January 06, 2025 2:40 pm 30wk ob *SM Csection January 23, 2025 10: 31am 32 wk ob *SM Csection 2025 10:38am GROWTH February 07, 2025 12 :59pm R/O LABORY February 13, 2025 11 :24am R/O LABORY February 13, 2025 1: 42pm 34 wk ob *SM Csection February 18, 2025 2:41pm Reason for Visit Admit Date Family history of autism October 21 8:36am [...] December 20, 2024 8:28am Obesity affecting December 20, 025 8:28am December 20, 2024 8:28 am [...] 06, 2025 2:40pm Obesity affecting January 06, 025 2:40pm Pelvic pain affecting December 2:40pm January 06, 2025 2:40 pm Sterilization January 06, 2025 2:40 pm Supervision of high-risk January 06, 2025 2:40pm Family history of autism January 23, 2025 10:31am History of delivery, currently January 23, 2025 10:31am Obesity affecting January 23, 025 10:31am Pelvic pain affecting December 10:31am January 23, 2025 10:3 1am Sterilization January 23, 2025 10:3 1am Supervision of high-risk January 23, 2025 10:31am Family history of autism February 03 10:38am History of delivery, currently 2025 10:38am Obesity affecting 2025 10:38am Pelvic pain affecting January 242024 10:38am 2025 10 :38am Sterilization 2025 10 :38am Supervision of high-risk Augus t 2024 10:38am Family history of autism February 18 2:41pm History of delivery, currently February 18, 2025 2:41pm Obesity affecting February 18, 2025 2:41pm Pelvic pain affecting January 252024 2:41pm February 18, 2025 2: 41pm Sterilization February 18, 2025 2: 41pm Supervision of high-risk Augus t 2024 2:41pm Chief Complaint Admit Date Supervision of high risk , [facility], u November 12, 2024 12:01pm 21wk ob November 21, 2024 10:26 am 25wk ob December 20, 2024 8:28 am OB, pelvic pain December 25, 2024 8:55a m R/O ABDOMINAL PAIN December 25, 2024 9:30a m R/O ABDOMINAL PAIN December 25, 2024 8:23p m 28wk ob/glucose January 06, 2025 2:40 pm 30wk ob *SM Csection January 23, 2025 10: 31am 32 wk ob *SM Csection 2025 10:38am GROWTH February 07, 2025 12 :59pm R/O LABORY February 13, 2025 11 :24am R/O LABORY February 13, 2025 1: 42pm 34 wk ob *SM Csection February 18, 2025 2:41pm 36 wk ob/nst *SM Csection March 03, 2025 1:33pm Reason for Visit Admit Date Family history of autism November 21, 2024 [...] 06, 2025 2:40pm Obesity affecting January 06, 025 2:40pm Pelvic pain affecting December 2:40pm January 06, 2025 2:40 pm Sterilization January 06, 2025 2:40 pm Supervision of high-risk January 06, 2025 2:40pm Family history of autism January 23, 2025 10:31am History of delivery, currently January 23, 2025 10:31am Obesity affecting January 23, 025 10:31am Pelvic pain affecting December 10:31am January 23, 2025 10:3 1am Sterilization January 23, 2025 10:3 1am Supervision of high-risk January 23, 2025 10:31am Family history of autism February 03 10:38am History of delivery, currently 2025 10:38am Obesity affecting 2025 10:38am Pelvic pain affecting January 242024 10:38am 2025 10 :38am Sterilization 2025 10 :38am Supervision of high-risk Augus t 2024 10:38am Family history of autism February 18 2:41pm History of delivery, currently February 18, 2025 2:41pm Obesity affecting February 18, 2025 2:41pm Pelvic pain affecting January 252024 2:41pm February 18, 2025 2: 41pm Sterilization February 18, 2025 2: 41pm Supervision of high-risk Augus t 2024 2:41pm Family history of autism March 03, 2025 1:33pm History of delivery, currently March 03, 2025 1:33pm Obesity affecting February 1:33pm Pelvic pain affecting Asael loza 2024 1:33pm March 03, 2025 1:33pm Sterilization March 03, 2025 1:33pm Supervision of high-risk Nickie law 2024 1:33pm Chief Complaint Admit Date Supervision of high risk , [facility], u November 12, 2024 12:01pm wk ob November 21, 2024 10:26 am 25wk ob December 20, 2024 8:28 am OB, pelvic pain December 25, 2024 8:55a m R/O ABDOMINAL PAIN December 25, 2024 9:30a m R/O ABDOMINAL PAIN December 25, 2024 8:23p m 28wk ob/glucose January 06, 2025 2:40 pm 30wk ob *SM Csection January 23, 2025 10: 31am 32 wk ob *SM Csection 2025 10:38am GROWTH February 07, 2025 12 :59pm R/O LABORY February 13, 2025 11 :24am R/O LABORY February 13, 2025 1: 42pm 34 wk ob *SM Csection February 18, 2025 2:41pm 36 wk ob/nst *SM Csection March 03, 2025 1:33pm NON REACTIVE NST March 03, 2025 2:58pm Additional Source Comments INFORMATION SOURCE (unrecogn ized section and content) DATE CREATED AUTHOR 01/14/2020 [facility] DATE CREATED AUTHOR AUTHOR'S ORGANIZ ATION 12/22/2020 [facility] ([place]) DATE CREATED AUTHOR AUTHOR'S ORGANIZ ATION 04/10/2021 [facility] DATE CREATED AUTHOR AUTHOR'S ORGANIZ ATION [facility] Go[facility] (unrecognized section and content) Goals may [...] October 02, 2024 Dr. Raven Modi , Attending Provider Activ e Start: October 02, 2024 End: October 02, 2024 Dr. Raven Modi , Referring Provider Activ e Start: October 02, 2024 End: October 02, 2024 Team Status: Inactive Member Role Status Dates No Primary Care Physician Primary Care Provider Active Start: October 21, 2024 End: October 21, 2024 No Primary Care Physician Referring Provider Active Start: October 21, 2024 End: October 21, 2024 Geneva Wheeler ASSISTANT BUYER, ASSISTANT BUYER-C Attending Provider Active Start: October 21, 2024 [...] 2024 End: November 12, 2024 Geneva Wheeler ASSISTANT BUYER, ASSISTANT BUYER-C Attending Provider Active Start: November 12, 2024 End: November 12, 2024 Geneva Wheeler ASSISTANT BUYER, ASSISTANT BUYER-C Referring Provider Active Start: November 12, 2024 [...] End: October 21, 2024 Geneva Wheeler NP, ASSISTANT BUYER-C Attending Provider Active Start: October 21, 2024 [...] 2024 End: November 12, 2024 Geneva Wheeler ASSISTANT BUYER, ASSISTANT BUYER-C Attending Provider Active Start: November 12, 2024 End: November 12, 2024 Geneva Wheeler ASSISTANT BUYER, ASSISTANT BUYER-C Referring Provider Active Start: November 12, 2024 [...] End: October 21, 2024 Geneva Wheeler NP, ASSISTANT BUYER-C Attending Provider Active Start: October 21, 2024 [...] 2024 End: November 12, 2024 Geneva Wheeler ASSISTANT BUYER, ASSISTANT BUYER-C Attending Provider Active Start: November 12, 2024 End: November 12, 2024 Geneva Wheeler ASSISTANT BUYER, ASSISTANT BUYER-C Referring Provider Active Start: November 12, 2024 [...] End: December 25, 2024 Dr. Raven Modi , DO Attending Provider Activ e Start: December 25, 2024 End: December 25, 2024 Dr. Raven Moid , Referring Provider Activ e Start: December 25, [...] September 26, 2024 Dr. Raven Modi , Attending Provider Activ e Start: September 26, 2024 End: September 26, 2024 Team Status: Inactive Member Role/Relationship Status Dates No Primary Care Physician Primary Care Provider Active Start: October 02, 2024 End: October 02, 2024 Dr. Raven Modi , Attending Provider Activ e Start: October 02, 2024 End: October 02, 2024 Dr. Raven Modi , Referring Provider Activ e Start: October 02, 2024 End: October 02, 2024 Team Status: Inactive Member Role/Relationship Status Dates No Primary Care Physician Primary Care Provider Active Start: October 21, 2024 End: October 21, 2024 No Primary Care Physician Referring Provider Active Start: October 21, 2024 End: October 21, 2024 Geneva Wheeler NP, RE-C Attending Provider Active Start: October 21, 2024 [...] 2024 End: November 12, 2024 Geneva Wheeler ASSISTANT BUYER, ASSISTANT BUYER-C Attending Provider Active Start: November 12, 2024 End: November 12, 2024 Geneva Wheeler ASSISTANT BUYER, ASSISTANT BUYER-C Referring Provider Active Start: November 12, 2024 [...] End: December 25, 2024 Dr. Raven Modi , Attending Provider Activ e Start: December 25, 2024 End: December 25, 2024 Dr. Raven Modi , Referring Provider Activ e Start: December 25, 2024 End: December 25, 2024 Team Status: Inactive Member Role/Relationship Status Dates No Primary Care Physician Primary Care Provider Active Start: December 25, 2024 End: December 25, 2024 Dr. Raven Modi , [...] Start: January 06, 2025 Geneva Wheeler NP, ASSISTANT BUYER-C Attending Provider Active Start: January 06, 2025 Team Status: Inactive Member Role/Relationship Status Dates No Primary Care Physician Primary Care Provider Active Start: January 06, 2025 End: January 06, 2025 Geneva Wheeler ASSISTANT BUYER, ASSISTANT BUYER-C Attending Provider Active Start: January 06, 2025 End: January 06, 2025 Team Status: Inactive Member Role/Relationship Status Dates No Primary Care Physician Primary Care Provider Active Start: January 23, 2025 End: January 23, 2025 No Primary Care Physician Referring Provider Active Start: January 23, 2025 End: January 23, 2025 Dr. Renate Handley MD Attending Provider Active Start: January 23, 2025 End: January 23, 2025 Team Status: Inactive Member Role/Relationship Status Dates No Primary Care Physician Primary Care Provider Active Start: October 21, 2024 End: October 21, 2024 No Primary Care Physician Referring Provider Active Start: October 21, 2024 End: October 21, 2024 Geneva Wheeler ASSISTANT BUYER, ASSISTANT BUYER-C Attending Provider Active Start: October 21, 2024 [...] 2024 End: November 12, 2024 Geneva Wheeler ASSISTANT BUYER, ASSISTANT BUYER-C Attending Provider Active Start: November 12, 2024 End: November 12, 2024 Geneva Wheeler ASSISTANT BUYER, ASSISTANT BUYER-C Referring Provider Active Start: November 12, 2024 [...] End: December 25, 2024 Dr. Raven Modi , DO Attending Provider Activ e Start: December 25, 2024 End: December 25, 2024 Team Status: Inactive Member Role/Relationship Status Dates No Primary Care Physician Primary Care Provider Active Start: December 25, 2024 End: December 25, 2024 Dr. Raven Modi , DO Attending Provider Activ e Start: December 25, 2024 End: December 25, 2024 Dr. Raven Modi , Referring Provider Activ e Start: December 25, 2024 End: December 25, 2024 Team Status: Inactive Member Role/Relationship Status Dates No Primary Care Physician Primary Care Provider Active Start: December 25, 2024 End: December 25, 2024 Dr. Raven Modi , [...] 2025 End: January 06, 2025 Team Status: Inactive Member Role/Relationship Status Dates No Primary Care Physician Primary Care Provider Active Start: January 06, 2025 End: January 06, 2025 Geneva Wheeler NP, ASSISTANT BUYER-C Attending Provider Active Start: January 06, 2025 End: January 06, 2025 Team Status: Inactive Member Role/Relationship Status Dates No Primary Care Physician Primary Care Provider Active Start: January 23, 2025 End: January 23, 2025 No Primary Care Physician Referring Provider Active Start: January 23, 2025 End: January 23, 2025 Dr. Renate Handley MD Attending Provider Active Start: January 23, 2025 End: January 23, 2025 Team Status: Inactive Member Role/Relationship Status Dates No Primary Care Physician Primary Care Provider Active Start: 2025 End: 2025 No Primary Care Physician Referring Provider Active Start: 2025 End: 2025 Dr. Renate Handley MD Attending Provider Active Start: 2025 End: 2025 Team Status: Active Member Role/Relationship Status Dates No Primary Care Physician Primary Care Provider Active Start: February 07, 2025 Dr. Renate Handley MD Attending Provider Active Start: February 07, 2025 Dr. Renate Handley MD Referring Provider Active Start: February 07, 2025 Team Status: Inactive Member Role/Relationship Status Dates No Primary Care Physician Primary Care Provider Active Start: February 13, 2025 End: February 13, 2025 Dr. Renate Handley MD Attending Provider Active Start: February 13, 2025 End: February 13, 2025 Dr. Renate Handley MD Referring Provider Active Start: February 13, 2025 End: February 13, 2025 Team Status: Inactive Member Role/Relationship Status Dates No Primary Care Physician Primary Care Provider Active Start: February 07, 2025 End: February 07, 2025 Dr. Renate Handley MD Attending Provider Active Start: February 07, 2025 End: February 07, 2025 Dr. Renate Handley MD Referring Provider Active Start: February 07, 2025 End: February 07, 2025 Team Status: Active Member Role/Relationship Status Dates No Primary Care Physician Primary Care Provider Active Start: February 13, 2025 Dr. Renate Handley MD Attending Provider Active Start: February 13, 2025 Dr. Renate Handley MD Referring Provider Active Start: February 13, 2025 Dr. Renate Handley MD Other Provider Active Start: February 13, 2025 Team Status: Inactive Member Role/Relationship Status Dates No Primary Care Physician Primary Care Provider Active Start: February 18, 2025 End: February 18, 2025 No Primary Care Physician Referring Provider Active Start: February 18, 2025 End: February 18, 2025 Dr. Renate Handley MD Attending Provider Active Start: February 18, 2025 End: February 18, 2025 Team Status: Inactive Member Role/Relationship Status Dates No Primary Care Physician Primary Care Provider Active Start: November 12, 2024 End: November 12, 2024 Geneva Wheeler ASSISTANT BUYER, ASSISTANT BUYER-C Attending Provider Active Start: November 12, 2024 End: November 12, 2024 Geneva Wheeler ASSISTANT BUYER, ASSISTANT BUYER-C Referring Provider Active Start: November 12, 2024 [...] End: December 25, 2024 Dr. Raven Modi , Attending Provider Activ e Start: December 25, 2024 End: December 25, 2024 Dr. Raven Modi DO Referring Provider Activ e Start: December 25, 2024 End: December 25, 2024 Team Status: Inactive Member Role/Relationship Status Dates No Primary Care Physician Primary Care Provider Active Start: December 25, 2024 End: December 25, 2024 Dr. Raven Modi , [...] 2025 End: January 06, 2025 Team Status: Inactive Member Role/Relationship Status Dates No Primary Care Physician Primary Care Provider Active Start: January 06, 2025 End: January 06, 2025 Geneva Wheeler NP, RE-C Attending Provider Active Start: January 06, 2025 End: January 06, 2025 Team Status: Inactive Member Role/Relationship Status Dates No Primary Care Physician Primary Care Provider Active Start: January 23, 2025 End: January 23, 2025 No Primary Care Physician Referring Provider Active Start: January 23, 2025 End: January 23, 2025 Dr. Renate Handley MD Attending Provider Active Start: January 23, 2025 End: January 23, 2025 Team Status: Inactive Member Role/Relationship Status Dates No Primary Care Physician Primary Care Provider Active Start: 2025 End: 2025 No Primary Care Physician Referring Provider Active Start: 2025 End: 2025 Dr. Renate Handley MD Attending Provider Active Start: 2025 End: 2025 Team Status: Inactive Member Role/Relationship Status Dates No Primary Care Physician Primary Care Provider Active Start: February 07, 2025 End: February 07, 2025 Dr. Renate Handley MD Attending Provider Active Start: February 07, 2025 End: February 07, 2025 Dr. Renate Handley MD Referring Provider Active Start: February 07, 2025 End: February 07, 2025 Team Status: Inactive Member Role/Relationship Status Dates No Primary Care Physician Primary Care Provider Active Start: February 13, 2025 End: February 13, 2025 Dr. Renate Handley MD Attending Provider Active Start: February 13, 2025 End: February 13, 2025 Dr. Renate Handley MD Referring Provider Active Start: February 13, 2025 End: February 13, 2025 Team Status: Active Member Role/Relationship Status Dates No Primary Care Physician Primary Care Provider Active Start: February 13, 2025 Dr. Renate Handley MD Attending Provider Active Start: February 13, 2025 Dr. Renate Handley MD Referring Provider Active Start: February 13, 2025 Dr. Renate Handley MD Other Provider Active Start: February 13, 2025 Team Status: Inactive Member Role/Relationship Status Dates No Primary Care Physician Primary Care Provider Active Start: February 18, 2025 End: February 18, 2025 No Primary Care Physician Referring Provider Active Start: February 18, 2025 End: February 18, 2025 Dr. Renate Handley MD Attending Provider Active Start: February 18, 2025 End: February 18, 2025 Team Status: Inactive Member Role/Relationship Status Dates No Primary Care Physician Primary Care Provider Active Start: March 03, 2025 End: March 03, 2025 No Primary Care Physician Referring Provider Active Start: March 03, 2025 End: March 03, 2025 Dr. Renate Handley MD Attending Provider Active Start: March 03, 2025 End: March 03, 2025 Team Status: Inactive Member Role/Relationship Status Dates No Primary Care Physician Primary Care Provider Active Start: March 03, 2025 End: March 03, 2025 Dr. Renate Handley MD Attending Provider Active Start: March 03, 2025 End: March 03, 2025 Dr. Renate Handley MD Referring Provider Active Start: March 03, 2025 End: March 03, 2025 FOR RECORDS PERTAINING TO PATIENTS WHO [...] BE BASED ON THE PRIMARY CLINICAL RECORDS. [facility] [employer] provides no warranty or guarantee of the accuracy or completeness of information in this document.
[2025-03-07 22:53] LABS: Mucous, Urine 0 SEEN /hpf (<or=2+); Red Blood Cells-Urine 0 SEEN /hpf (0-5)
[2025-03-07 23:08] LABS: Color, Urine Yellow (Yellow); Glucose, Dipstick Normal (Normal); Ketone-Dipstick Negative (Negative); Leukocyte Esterase-Dipstick 25 /ul (Negative); Nitrite-Dipstick Negative (Negative); Occult Blood-Urine Negative /ul (Negative); Protein-Dipstick 30 mg/dl (Negative); Specific Gravity, Urine 1.025 (1.002-1.030); Urine Bilirubin Dipstick Negative (Negative)
[2025-03-07 23:18] LABS: Squamous Epithelial Cells - UA 5-10 SEEN /hpf (5-10)
[2025-03-08] MEDS: FOSFOMYCIN TROMETHAMINE 3 GM PACKET PO (00:18)
--- NOTE | 2025-03-08 00:22 | OB.TRI.PN_ITS ---
Progress Notes Date of Service: 03/08/25 Progress Note: Patient presents for triage evaluation secondary to virla symptoms FHT: 140 Moderate variability reactive no decelerations category I tracing [place]: irregular Contractions Assessment and plan: viral symptoms 36 weeks and uti Reactive NST, reassuring maternal and status patient discharged to home to follow-up as scheduled. See problem list details for additional plan information. Laboratory Studies: Laboratory Tests 03/07/25 Range/Units 22:45 Urine Color Yellow (Yellow) Urine Clarity Clear (Clear) Urine pH 6.0 (5.0 - 8.0) Ur Specific [place] 1.025 (1.002-1.030) Urine Protein 30 H (Negative) mg/dl Urine Glucose (UA) Normal (Normal) mg/dl Urine Ketones Negative (Negative) mg/dl Urine Occult Blood Negative (Negative) /ul Urine Nitrite Negative (Negative) Urine Bilirubin Negative (Negative) mg/dL Urine Urobilinogen Normal (Normal) mg/dl Ur Leukocyte Esterase 25 H (Negative) /ul Urine RBC 0 SEEN (0-5) /hpf Urine WBC 0-5 SEEN (0-5) /hpf Ur Squamous Epith Cells 5-10 SEEN (5-10) /hpf Urine Bacteria 3+ (None Seen) /hpf Urine Mucus 0 SEEN (<or=2+) /hpf Charges/Coding Procedures Urinary/Genital [id number]: [id number] non-stress test Interp
== END 2025-03-08 00:20 | disposition home or self-care (01) ==
LOC: WPOUT 21:35 → WP 21:35
PROVIDERS: Referring Provider Obstetrics & Gynecology; Visit Provider Obstetrics & Gynecology
DX: O47.03 False labor before 37 completed weeks of gestation, third trimester (principal); Z3A.36 36 weeks gestation of pregnancy
CPT/HCPCS: 59025; 59050; 81001; 87077; 87086; 87088; 99221; G0378

== ENCOUNTER 2025-03-13 23:20 | Outpatient (CLI) | payer MEDICAID, SELFPAY ==
--- OUTSIDE RECORDS SUMMARY | 2025-03-13 23:28 | XMS RPT_ITS | CCD ---
Author Organization [facility] Care Team Providers Care Human Resources Officer Name Role Phone DO Lukas Westbrook Referring Provider Unavailabl e Dr. Raven Modi Attending Provider [phone] Care Physician, No Primary Primary Care Provider Unavailable Care Physician, No Primary Referring Provider Un available Summer ELECTRICIAN SUBSTATION SUPERVISOR, DANIEL Bean Attending Provider [phone] Dr. Renate Handley Attending Provider [phone] Dr. Raven Modi Other Provider Dr. Raven [...] available Shell Curry CNM Attending Provider [phone] Shell Curry CNM Referring Provider [phone] Dr. Christiano Villafuerte MD Emergency Provider Care [...] [phone] Dr. Renate Handley MD Attending Provider [phone] Dr. Renate Handley MD Referring Provider Care [...] ilable Rajananthony, Renate Attending Unavailable Marcanthony, Renate Referring Unavailable Care Physician, No Primary Primary Care Unava ilable Marcanthony, Renate Attending Unavailable Marcanthony, Renate Admitting Unavailable Marcanthony, Renate Attending Unavailable Care Physician, [...] Primary Primary Care Unava ilable Shell Curry Attending Unavailable Patricio, Shell Referring Unavailable Care Physician, No Primary Primary Care Unava ilable Marcanthony, Renate Attending Unavailable Marcanthony, Renate Referring Unavailable Care Physician, No Primary Primary Care Unava ilable Christiano Villafuerte Attending Unavailable Care Physician, No Primary Referring Unava ilable Care Physician, No Primary Primary Care Unava ilable [place] ELECTRICIAN SUBSTATION SUPERVISOR, [place] Attending Unavailable Care Physician, No Primary Referring Unava ilable Care Physician, No Primary Primary Care Unava ilable Shell Curry Attending Unavailable Care Physician, No Primary Referring Unava ilable Care Physician, No Primary Primary Care Unava ilable Marcanthalex, Renate Attending Unavailable Care Physician, No Primary Referring Unava ilable Care Physician, No Primary Primary Care Unava ilable Raven Modi Attending Unavailabl e Care Physician, No Primary Primary Care Unava ilable Summer ELECTRICIAN SUBSTATION SUPERVISOR, [place] Attending Unavailable Care Physician, No Primary Primary Care Unava ilable Franco Ortiz Attending Unavailable Care Physician, No Primary Primary Care Unava ilable [place] ELECTRICIAN SUBSTATION SUPERVISOR, [place] Attending Unavailable [place] ELECTRICIAN SUBSTATION SUPERVISOR, [place] Referring Unavailable Care Physician, No Primary Primary Care Unava ilable Heraclio Ornelas Attending Unavailable Care Physician, No Primary Primary Care Unava ilable Raven Modi Referring Unavailabl e Kim VelRaven morris Attending Unavailabl e Care Physician, No Primary Referring Unava ilable Care Physician, No Primary Primary Care Unava ilable Raven Modi Attending Unavailabl e Care Physician, No Primary Referring Unava ilable Care Physician, No Primary Primary Care Unava ilable Vande Velalexandra, Raven Attending Unavailabl e Care Physician, No Primary Referring Unava ilable Care Physician, No Primary Primary Care Unava ilable Dariana Eli Attending Unavailable Care Physician, No Primary Primary Care Unava ilable Vande Velde, Raven Referring Unavailabl e Vande Velde, Raven Attending Unavailabl e Care Physician, No Primary Referring Unava ilable Care Physician, No Primary Primary Care Unava ilable Marcanthony, Renate Attending Unavailable Care Physician, No Primary Primary Care Unava ilable Marcanthony, Renate Attending Unavailable Marcanthony, Renate Referring Unavailable Care Physician, No Primary Primary Care Unava ilable Care Physician, No Primary Referring Unava ilable Marcanthony, Renate Attending Unavailable Marcanthony, Renate Attending Unavailable Care Physician, No Primary Referring Unava ilable Care Physician, No Primary Primary Care Unava ilable Care Physician, No Primary Primary Care Unava ilable Care Physician, No Primary Referring Unava ilable Marcanthalex, Renate Attending Unavailable Care Physician, No Primary Primary Care Unava ilable Care Physician, No Primary Referring Unava ilable Marcanthony, Renate Attending Unavailable Care Physician, No Primary Primary Care Unava ilable Marcanthony, Renate Consulting Unavailable Marcanthony, Renate Attending Unavailable Marcanthony, Renate Referring Unavailable Care Physician, No Primary Primary Care Unava ilable LaminAdri Attending Unavailable Marcanthony, Renate Attending Unavailable Care Physician, No Primary Referring Unava ilable Care Physician, No Primary Primary Care Unava ilable Care Physician, No Primary Primary Care Unava ilable Nkechie Olga, Raven Attending Unavailabl e Vande Velde, Raven Referring Unavailabl e Vande Velde, Raven Consulting Unavailabl e Marcanthony, Renate Consulting Unavailable Care Physician, No Primary Primary Care Unava ilable Marcanthony, Renate Attending Unavailable Marcanthony, Renate Referring Unavailable Marcanthony, Renate Attending Unavailable Care Physician, No Primary Primary Care Unava ilable Marcanthony, Renate Consulting Unavailable Marcanthony, Renate Referring Unavailable Medications Current Medications Medication Drug Class(es) Dates Sig (Normalized) Sig (Original) cephalexin 500 mg oral capsule (20 sources) Cephalosporin Antibacterial Start: 03-10-2025 take 1 capsule by mouth three times daily Cephalexin 500 mg capsule Active 500 mg PO THREE TIMES A DAY 21 7 0 March 10, 2025 12:00am March 16, 2025 12:00am space evenly during waking hours Start: 04-21-2021 End: 04-28-2021 take 1 capsule by mouth twice daily Cephalexin 500 mg capsule Discontinued 500 mg PO TWICE A DAY 14 7 0 April 21, 2021 12:00am April 27, 2021 12:00am April 28, 2021 12:01am metoclopramide 10 mg oral tablet (19 sources) Dopamine-2 Receptor Antagonist Start: 03-08-2025 take 1 tablet by mouth every six hours as needed for nausea and vomiting Metoclopramide Hcl (Reglan) 10 mg tablet Active 10 mg PO EVERY 6 HOURS as needed for nausea and vomiting 30 0 March 08, 2025 12:00am Start: 10-28-2024 End: 12-25-2024 take 1 tablet by mouth every six hours as needed for nausea and vomiting Metoclopramide Hcl (Reglan) 10 mg tablet Discontinued 10 mg PO EVERY 6 HOURS as needed for nausea and vomiting 30 2 October 28, 2024 12:00am December 25, 2024 9:57am [place] (Nk) (9 sources) Start: 01-23-2025 [place] (Nk) A ctive January 23, 2025 12:00am Start: 08-30-2024 [place] (Nk) A ctive August 30, 2024 1:00am Start: 08-30-2024 [place] (Nk) A ctive August 30, 2024 12:00am Start: 08-15-2023 [place] (Nk) A ctive August 15, 2023 12:00am Completed/Discontinued Medications Medication Drug Class(es) Dates Sig (Normalized) Sig (Original) acetaminophen 325 mg oral tablet (20 sources) Start: 2 End: 2 take 1 tablet by mouth once as needed Acetaminophen (Tylenol) 325 mg tablet Discontinued 325 mg PO ONCE as needed November 23, 2021 12:00am December 21, 2021 2:44pm acetaminophen 325 mg / oxyCODONE hydrochloride 5 mg oral tablet (20 sources) Opioid Agonist Start: 2 End: 2 Oxycodone-Acetaminophen (Percocet) 5-325 mg tablet Discontinued 1 {tbl} PO EVERY 6 HOURS as needed for pain 20 7 0 November 06, 2021 November 23, 2021 9:05am delivery delivered Encounter for delivery without indication Fluad Quad 3302-1174(65yr up)(PF) 60 mcg (15 mcg x 4)/0.5mL IM syringe (flu vac (1 source) Start: 1 End: 1 inject 1 mL by intramuscular injection once Fluad Quad 2557-3870(65yr up)(PF) 60 mcg (15 mcg x 4)/0.5mL IM syringe (flu vac Discontinued 0.5 ML IM ONCE 0.5 May 17, 2021 9:19am May 17, 2021 9:52am 1 ml medroxyPROGESTERone acetate 150 mg/ml prefilled syringe (20 sources) Progestin Start: 2 End: 4 inject 150 mg by intramuscular injection every three months Medroxyprogesterone (Depo-Provera) 150 mg/mL syringe Discontinued 150 mg IM every 3 months 1 3 April 12, 2022 4:20pm August 15, 2023 6:52pm Start: 02-18-2019 End: 03-05-2021 inject 150 mg by intramuscular injection every three months Medroxyprogesterone 150 MG/ML syringe Discontinued 150 mg IM .[id number] February 18, 2019 12:00am March 05, 2021 9:13am Start: 02-18-2019 End: 03-05-2021 inject 150 mg by intramuscular injection every three months Medroxyprogesterone Discontinued 150 MG IM .[id number] February 17, 2019 11:00pm March 05, 2021 8:13am naproxen 500 mg oral tablet (20 sources) Nonsteroidal Anti-inflammatory Drug Start: 11-06-2021 End: 11-23-2021 take 1 tablet by mouth twice daily as needed for pain Naproxen 500 MG tablet Discontinued 500 mg PO TWICE DAILY NEEDED as needed for Pain 30 1 November 06, 2021 12:00am November 23, 2021 [...] No.175-Iron Fum-Folic Ac id 29-1 mg tablet (20 sources) Start: 06-14-2021 End: 08-23-2021 Pnv No.175-Iron [...] encounter status; Translations: [Encounter for sterilization] Onset: 03-10-2025 01-06-2025 Episodic Comment on above: title 19 [...] 01-07-2025 Episodic Residual codes; unclassified (1 source) 37 weeks gestation of ; Translations: [37 weeks gestation of ] Onset: 03-10-2025 Episodic Residual codes; unclassified (1 source) 36 [...] [Dysuria] Onset: 11-26-2024 Episodic Nausea and vomiting (19 sources) Nausea and vomiting; Translations: [Nausea with [...] Name Value Interpretation Reference Range Facil ity Urine Cultureon 03-11-2025 URC Below infection level. Mixed Gram Positive Organisms [place] Count 1000-10,000 MIXC Mixed contaminants. Submit a new specimen if indicated. Normal [facility] Comment on above: Performed By: #### M 100.2200 ####[facility] [address] [place], [address] Business Continuity Analyst Office Visit Reporton 03-10-2025 Business Continuity Analyst Office Visit Report [facility] [address], [address] [place] [address] OFFICE VISIT Date of Service: 03/10/25 MR#: [id number] Acct: [id number] Name: QUAN RODGERS KELTON Rep #: [id number] : 2000 Provider: Dr. Renate yi MD Age/Sex: 25/F [place] [facility] [place]: Signed Intake Vital Signs 01/06/25 14:59 02/03/25 10:41 02/13/25 11:44 03/07/25 21:37 03/10/25 13:06 Height 5 ft 10 in 5 ft 10 in 5 ft 10 in 5 ft 11 in 5 ft 11 in Weight: 270 lb 6 oz BMI 37.7 BP 129/80 H Intake Visit Reasons: 37 wk ob/nst *SM Csection Dragline Mechanic Required: No Is patient in pain?: No Allergies No Known Allergies Allergy (Verified 03/10/25 13:11) Medications ???Medication ???Instructions ???Recorded ???Confirmed ???Type metoclopramide HCl 10 mg tablet 10 mg PO Q6H PRN nausea and 03/10/25 Rx (Reglan) vomiting #30 tabs cephalexin 500 mg capsule 500 mg PO TID 7 days #21 caps 02/2403/10/25 Rx Last Menstrual Period: 06/24/24 Zika: Zika virus screening: Negative : No PFSH PFSH Medical History Chorioamnionitis delivery delivered Surgical History History of section History of surgery Social History adopted: No household members: children and other details: mom housing: house number of children: 1 current occupational status: employed 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 OB Visit LINDA Calculator Estimated Delivery Date Method Current WG Current Estimate 03/31/25 LMP (Certain) 37w 0d Other Estimates 03/30/25 Ultrasound #1 37w 1d Expected Delivery Route/Plan Repeat C/S with [...] -???-???-???-???-? ??-???-???-???-??? -???-???-???- JV- no compl aints. (more content not included)... Normal [facility] OB Triage Progress Noteon OB Triage Progress Note [facility] Medical Records Department [facility] [address] OB Triage Progress Note 03/08/25 0022 MR#: [id number] Acct: [id number] Name: QUAN RODGERS KELTON Rep #: [id number] : 2000 25 From: Renate Handley MD PCP: Care Physician,No Primary Status:DEP KAMILAH Y DOS: Location: [facility]OUT Progress Notes Date of Service: 03/08/25 Progress Note: Patient presents for triage evaluation secondary to virla symptoms FHT: 140 Moderate variability reactive no decelerations category I tracing [place]: irregular Contractions Assessment and plan: viral symptoms 36 weeks and uti Reactive NST, reassuring maternal and status patient discharged to home to follow-up as scheduled. See problem list details for additional plan information. Laboratory Studies: Laboratory Tests 03/07/25 Range/Units 22:45 Urine Color Yellow (Yellow) Urine Clarity Clear (Clear) Urine pH 6.0 (5.0 - 8.0) Ur Specific [place] 1.025 (1.002-1.030) Urine Protein 30 H (Negative) mg/dl Urine Glucose (UA) Normal (Normal) mg/dl Urine Ketones Negative (Negative) mg/dl Urine Occult Blood Negative (Negative) /ul Urine Nitrite Negative (Negative) Urine Bilirubin Negative (Negative) mg/dL Urine Urobilinogen Normal (Normal) mg/dl Ur Leukocyte Esterase 25 H (Negative) /ul Urine RBC 0 SEEN (0-5) /hpf Urine WBC 0-5 SEEN (0-5) /hpf Ur Squamous Epith Cells 5-10 SEEN (5-10) /hpf Urine Bacteria 3+ (None Seen) /hpf Urine Mucus 0 SEEN ( Charges/Coding Procedures Urinary/Genital 52xxx-59xxx: [id number] non-stress test Interp 03/08/25 0025 Date Renate Handley MD Cosigner Signature (if applicable): Date ___ CC: Dr. Renate Handley MD; No Primary Care Physician Signed Normal [facility] Bilirubin Test strip Ql (U)O rdered By: Renate Handley on 03-07-2025 Bilirubin Ql (U) Negative Negative [facility] Ketones Test strip Ql (U)Ord ered By: Renate Handley on 03-07-2025 Ketones Ql (U) Negative Negative [facility] Microscopic analysis of urin e for red blood cells (RBC)Ordered By: Renate Handley on 03-07-2025 Microscopic analysis of urine for red blood cells (RBC) 0 SEEN /hpf 0-5 [facility] Mucus LM Ql (Urine sed)Order ed By: Renate Handley on 03-07-2025 Mucus Ql (Urine sed) 0 SEEN /hpf [facility] Nitrite Test strip Ql (U)Ord ered By: Renate Handley on 03-07-2025 Nitrite Ql (U) Negative Negative [facility] Protein Test strip Ql (U)Ord ered By: Renate Handley on 03-07-2025 Protein Ql (U) 30 mg/dl High Negative [facility] Squamous epithelial cells de tection in urine sediment by light microscopyOrdered By: Renate Handley on 03-07-2025 Epithelial cells.squamous LM Ql (Urine sed) 5-10 SEEN /hpf 5-10 [facility] Urinalysis, Completeon 03-07 BACTERIA 3+ /hpf Normal None Seen [facility] Comment on above: Order Comment: MICHAEL CTOR TO SPECIFY Performed By: #### L 400.0001 ####[facility] [address] [place], [place], [id number] EPI,SQUAMOUS 5-10 SEEN Normal 5-10 [facility] Comment on above: Order Comment: MICHAEL CTOR TO SPECIFY Performed By: #### L 400.0001 ####[facility] [address] [place], [place], [id number] WBC 0-5 SEEN Normal 0-5 [facility] Comment on above: Order Comment: MICHAEL CTOR TO SPECIFY Performed By: #### L 400.0001 ####[facility] [address] [place], [address] Mucus Ql (Urine sed) 0 SEEN Normal [facility] Comment on above: Order Comment: MICHAEL CTOR TO SPECIFY Performed By: #### L 400.0001 ####[facility] [address] [place], [address] RBC 0 SEEN Normal 0-5 [facility] Comment on above: Order Comment: MICHAEL CTOR TO SPECIFY Performed By: #### L 400.0001 ####[facility] [address] [place], [place], [id number] Urine clarityOrdered By: Eric Handley on 03-07-2025 Clarity (U) Clear Clear [facility] Urine color determinationOrd ered By: Renate Handley on 03-07-2025 Color (U) Yellow Yellow [facility] Urine glucose detectionOrder ed By: Renate Handley on 03-07-2025 Glucose Ql (U) Normal mg/dl Normal [facility] Urine leukocyte esterase det ection by dipstickOrdered By: Renate Handley on 03-07-2025 Leukocyte esterase Test strip Ql (U) 25 /ul High Negative [facility] Urine pHOrdered By: Renate sahu on 03-07-2025 pH (U) 6.0 [pH] 5.0 - 8.0 [facility] Urine sediment bacteria coun t by microscopy (number/high power field)Ordered By: Renate Handley on 03-07-2025 Bacteria LM.HPF (Urine sed) [#/Area] 3 /[HPF] None Seen [facility] Urine specific gravity measu rementOrdered By: Renate Handley on 03-07-2025 Specific gravity (U) [Rel density] 1.025 1.002-1.030 [facility] Urine urobilinogen measureme ntOrdered By: Renate Handley on 03-07-2025 Urobilinogen Ql (U) Normal mg/dl Normal [facility] White blood cell countOrdere d By: Renate Handley on 03-07-2025 White blood cell count 0-5 SEEN /hpf 0-5 [facility] Rule out Beta Strep (Grp. B) on 03-05-2025 ZIA Group B Beta Streptococcus is not isolated. Normal [facility] Comment on above: Performed By: #### L 900.0098 #### [facility] [address] [place], [address] Group B Strep DNA By PCRon 0 03-03-2025 GBS DNA ASSAY Normal Negative [facility] Comment on above: Result Comment: DUPL ICATE ORDER Performed By: #### L 8200.0000 ####[facility] [address] [place], [address] IC Normal [facility] Comment on above: Result Comment: DUPL ICATE ORDER Performed By: #### L 8200.0000 ####[facility] [address] [place], [address] PROBE CHECK Normal [facility] Comment on above: Result Comment: DUPL ICATE ORDER Performed By: #### L 8200.0000 ####[facility] [address] [place], [address] SPC Normal [facility] Comment on above: Result Comment: DUPL ICATE ORDER Performed By: #### L 8200.0000 ####[facility] [address] [place], [address] SWAB TYPE IS: Normal [facility] Comment on above: Result Comment: DUPL ICATE ORDER Performed By: #### L 8200.0000 ####[facility] [address] [place], [address] M8200.0100on 03-03-2025 M8200.0100 Negative Normal [facility] Comment on above: Performed By: #### L 900.0098 #### [facility] [address] [place], [address] OB Biophysical Prof W/O NSTo n 03-03-2025 OB Biophysical Prof W/O NST [facility] [address] [place] [address] OB Biophysical Prof W/O NST MR#: [id number] Acct: [id number] Name: QUAN RODGERS KELTON Rep #: [id number] : 2000 F 25 From: Oneida Huggins PCP: Care Physician,No Primary Status: REG CLI Study: OB Biophysical Prof W/O NST Date of Exam: 02/17 Exam# [id number] Ordering Dr: Renate Handley PROCEDURE: OB BIOPHYSICAL [...] score of 8 of 8. Reading [id number] CC: Dr. Renate Handley MD; No Primary Care Physician Casino Investigator: Signed Normal [facility] OB Triage Progress Noteon OB Triage Progress Note [facility] Medical Records Department [address] [facility] [place] [address] OB Triage Progress Note 03/03/25 1744 MR#: [id number] Acct: [id number] Name: QUAN RODGERS KELTON Rep #: [id number] : 2000 25 From: Renate Handley MD PCP: Care Physician,No Primary Status:DEP CLI Y DOS: Location: WPOUT Progress Notes Date of Service: 03/03/25 Progress Note: seen for nonreactive NST in the office 36 weeks , 01/31 bpp an dreactive NST now, reassuring dc home fu as scheudled. Laboratory Studies: Laboratory Tests 03/03/25 Range/Units 15:35 Group B Strep DNA Cancelled Specimen Comment Cancelled 03/04/25 0525 Date Renate Handley MD Cosigner Signature (if applicable): Date ___ CC: Dr. Renate Handley MD; No Primary Care Physician Signed Normal [facility] Business Continuity Analyst Office Visit Reporton 03-03-2025 Business Continuity Analyst Office Visit Report [facility] [address], [address] [place] [address] OFFICE VISIT Date of Service: 03/03/25 MR#: [id number] Acct: [id number] Name: QUAN RODGERS KELTON Rep #: [id number] : 2000 Provider: Dr. 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 -???-???-???- (more content not included)... Normal [facility] Screening beta-hemolytic Str eptococcus cultureOrdered By: Renate Handley on 03-03-2025 Beta-hemolytic Streptococcus culture Group B Beta Streptococcus is not isolated. [facility] Business Continuity Analyst Office Visit Reporton 02-18-2025 Business Continuity Analyst Office Visit Report [facility], [address] [place] [address] OFFICE VISIT Date of Service: 02/18/25 MR#: [id number] Acct: [id number] Name: QUAN RODGERS KELTON Rep #: [id number] : 2000 Provider: Dr. 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 ??-???- (more content not included)... Normal [facility] Urine Cultureon 02-16-2025 URC Urine Culture Staphylococcus aureus [place] Count 1000-10,000 Mixed Gram Positive Organisms Mixed [...] S Vancomycin Islt CORRINA <=0.5 S Normal [facility] Comment on above: Performed By: #### L 3890.6301, L7400.0353, L3890.6102, L509.8002, BTS, M100.2200, L3890.6006, L100.0100, L501.9985, L7000.1800, L509.4006 #### [facility] [address] [place], [place], [id number] Amorphous sediment detection in urine sediment by light microscopyOrdered By: Renate Handley on 02-13-2025 Amorphous sediment LM Ql (Urine sed) 1+ [facility] Bilirubin Test strip Ql (U)O rdered By: Renate Handley on 02-13-2025 Bilirubin Ql (U) Negative Negative [facility] CBC-Complete Blood Cnt No Di ffon 02-13-2025 HCT Normal 37-47 [facility] Comment on above: Result Comment: Canc elled via OM: Ordered/Entered in error Performed By: #### L 100.0500, L501.0900 ####[facility] [address] [place], [address] HGB Normal 12.0-15.0 [facility] Comment on above: Result Comment: Canc elled via OM: Ordered/Entered in error Performed By: #### L 100.0500, L501.0900 ####[facility] [address] [place], [address] MCH Normal 27.0-32.0 [facility] Comment on above: Result Comment: Canc elled via OM: Ordered/Entered in error Performed By: #### L 100.0500, L501.0900 ####[facility] [address] [place], [address] MCHC Normal 32-36 [facility] Comment on above: Result Comment: Canc elled via OM: Ordered/Entered in error Performed By: #### L 100.0500, L501.0900 ####[facility] [address] [place], [address] MCV Normal 81-99 [facility] Comment on above: Result Comment: Canc elled via OM: Ordered/Entered in error Performed By: #### L 100.0500, L501.0900 ####[facility] [address] [place], [address] PLT Normal 150-450 [facility] Comment on above: Result Comment: Canc elled via OM: Ordered/Entered in error Performed By: #### L 100.0500, L501.0900 ####[facility] [address] [place], [address] RBC Normal 4.2-5.4 [facility] Comment on above: Result Comment: Canc elled via OM: Ordered/Entered in error Performed By: #### L 100.0500, L501.0900 ####[facility] [address] [place], [address] RDW CV Normal 11.6-14.6 [facility] Comment on above: Result Comment: Canc elled via OM: Ordered/Entered in error Performed By: #### L 100.0500, L501.0900 ####[facility] [address] [place], [address] RDW SD Normal 35.1-43.9 [facility] Comment on above: Result Comment: Canc elled via OM: Ordered/Entered in error Performed By: #### L 100.0500, L501.0900 ####[facility] [address] [place], [address] WBC Normal 4.4-11.0 [facility] Comment on above: Result Comment: Canc elled via OM: Ordered/Entered in error Performed By: #### L 100.0500, L501.0900 ####[facility] [address] [place], [address] Ketones Test strip Ql (U)Ord ered By: Renate Handley on 02-13-2025 Ketones Ql (U) Negative Negative [facility] Microscopic analysis of urin e for red blood cells (RBC)Ordered By: Renate Handley on 02-13-2025 Microscopic analysis of urine for red blood cells (RBC) 0-5 SEEN /hpf 0-5 [facility] Mucus LM Ql (Urine sed)Order ed By: Renate Handley on 02-13-2025 Mucus Ql (Urine sed) 0 SEEN /hpf [facility] Nitrite Test strip Ql (U)Ord ered By: Renate Handley on 02-13-2025 Nitrite Ql (U) Negative Negative [facility] OB Triage Progress Noteon OB Triage Progress Note [facility] Medical Records Department [address] [place] [address] OB Triage Progress Note 02/13/25 1342 MR#: [id number] Acct: [id number] Name: QUAN RODGERS KELTON Rep #: [id number] : 2000 25 From: Renate Handley MD PCP: Care Physician,No Primary Status:DEP CLI Y DOS: Location: WPOUT Progress Notes Date of Service: 02/13/25 Progress Note: Patient presents for triage evaluation secondary to false labor FHT: 140q 3-5 Moderate variability reactive no decelerations category I tracing [place]: occasional Contractions Assessment and plan: 33 week threatened labor no cervical dilation Reactive NST, reassuring maternal and status patient discharged to home to follow-up as pradeep. See problem list details for additional plan information. Charges/Coding Procedures Urinary/Genital 52xxx-59xxx: 51599-71 non-stress test Interp 02/14/25 0836 Date Renate Handley MD Cosigner Signature (if applicable): Date ___ CC: Dr. Renate Handley MD; No Primary Care Physician Signed Normal [facility] Protein Test strip Ql (U)Ord ered By: Renate Handley on 02-13-2025 Protein Ql (U) 15 mg/dl High Negative [facility] Protein+Creatinine Ratio,Uri neon 02-13-2025 PROT:CRE RATIO Normal 0-200 [facility] Comment on above: Result Comment: Canc elled via OM: Ordered/Entered in error Performed By: #### L 100.0500, L501.0900 ####[facility] [address] [place], [address] PROTEIN,UR.RAN. Normal 0.0-12.0 [facility] Comment on above: Result Comment: Canc elled via OM: Ordered/Entered in error Performed By: #### L 100.0500, L501.0900 ####[facility] [address] [place], [address] UR CREAT Normal 28.00-217.00 [facility] Comment on above: Result Comment: Canc elled via OM: Ordered/Entered in error Performed By: #### L 100.0500, L501.0900 ####[facility] [address] [place], [address] Squamous epithelial cells de tection in urine sediment by light microscopyOrdered By: Renate Handley on 02-13-2025 Epithelial cells.squamous LM Ql (Urine sed) 0-5 SEEN /hpf 5-10 [facility] Transitional cells detection in urine sediment by light microscopyOrdered By: Renate Handley on 02-13-2025 Transitional cells LM Ql (Urine sed) 0-5 SEEN /hpf 0-5 [facility] Urinalysis, Completeon 02-13 AMORPHOUS 1+ Normal [facility] Comment on above: Order Comment: CLEAN CATCH Performed By: #### L 3890.6301, L7400.0353, L3890.6102, L509.8002, BTS, M100.2200, L3890.6006, L100.0100, L501.9985, L7000.1800, L509.4006 #### [facility] [address] [place], [address] BACTERIA 1+ /hpf Normal None Seen [facility] Comment on above: Order Comment: CLEAN CATCH Performed By: #### L 3890.6301, L7400.0353, L3890.6102, L509.8002, BTS, M100.2200, L3890.6006, L100.0100, L501.9985, L7000.1800, L509.4006 #### [facility] [address] [place], [address] EPI,SQUAMOUS 0-5 SEEN Normal 5-10 [facility] Comment on above: Order Comment: CLEAN CATCH Performed By: #### L 3890.6301, L7400.0353, L3890.6102, L509.8002, BTS, M100.2200, L3890.6006, L100.0100, L501.9985, L7000.1800, L509.4006 #### [facility] [address] [place], [address] EPI,TRANSITION 0-5 SEEN Normal 0-5 [facility] Comment on above: Order Comment: CLEAN CATCH Performed By: #### L 3890.6301, L7400.0353, L3890.6102, L509.8002, BTS, M100.2200, L3890.6006, L100.0100, L501.9985, L7000.1800, L509.4006 #### [facility] [address] [place], [address] RBC 0-5 SEEN Normal 0-5 [facility] Comment on above: Order Comment: CLEAN CATCH Performed By: #### L 3890.6301, L7400.0353, L3890.6102, L509.8002, BTS, M100.2200, L3890.6006, L100.0100, L501.9985, L7000.1800, L509.4006 #### [facility] [address] [place], [place], [address] WBC 0-5 SEEN Normal 0-5 [facility] Comment on above: Order Comment: CLEAN CATCH Performed By: #### L 3890.6301, L7400.0353, L3890.6102, L509.8002, BTS, M100.2200, L3890.6006, L100.0100, L501.9985, L7000.1800, L509.4006 #### [facility] [address] [place], [address] Mucus Ql (Urine sed) 0 SEEN Normal [facility] Comment on above: Order Comment: CLEAN CATCH Performed By: #### L 3890.6301, L7400.0353, L3890.6102, L509.8002, BTS, M100.2200, L3890.6006, L100.0100, L501.9985, L7000.1800, L509.4006 #### [facility] [address] [place], [address] Urine clarityOrdered By: Eric Handley on 02-13-2025 Clarity (U) Sl Cldy Clear [facility] Urine color determinationOrd ered By: Renate Handley on 02-13-2025 Color (U) Straw Yellow [facility] Urine cultureOrdered By: Eric Handley on 02-13-2025 Bacteria identified Cx Nom (U) Staphylococcus aureus Abnormal [facility] Bacteria identified Cx Nom (U) Positive Abnormal [facility] Urine glucose detectionOrder ed By: Renate Handley on 02-13-2025 Glucose Ql (U) Normal mg/dl Normal [facility] Urine leukocyte esterase det ection by dipstickOrdered By: Renate Handley on 02-13-2025 Leukocyte esterase Test strip Ql (U) Negative Negative [facility] Urine pHOrdered By: Renate sahu on 02-13-2025 pH (U) 7.0 [pH] 5.0 - 8.0 [facility] Urine sediment bacteria coun t by microscopy (number/high power field)Ordered By: Renate Handley on 02-13-2025 Bacteria LM.HPF (Urine sed) [#/Area] 1 /[HPF] None Seen [facility] Urine specific gravity measu rementOrdered By: Renate Handley on 02-13-2025 Specific gravity (U) [Rel density] 1.015 1.002-1.030 [facility] Urine urobilinogen measureme ntOrdered By: Renate Handley on 02-13-2025 Urobilinogen Ql (U) Normal mg/dl Normal [facility] White blood cell countOrdere d By: Renate Handley on 02-13-2025 White blood cell count 0-5 SEEN /hpf 0-5 [facility] OB Limited With Biometricson 02-07-2025 OB Limited With Biometrics [facility] [address] [place], [place] [address] OB Limited With Biometrics MR#: [id number] Acct: [id number] Name: QUAN RODGERS KELTON Rep #: [id number] : 2000 F 25 From: Royce krueger MD PCP: Care Physician,No Primary Status: REG CLI Study: OB Limited With Biometrics Date of Exam: 02/07 Exam# [id number] Ordering Dr: Renate Handley PROCEDURE: OB LIMITED [...] fall within normal expected range. Reading Location: [facility] CC: Dr. Renate Handley MD; No Primary Care Physician Casino Investigator: Signed Normal [facility] - Chemistry and C hemistry - challengeOrdered By: Renate Handley on 2025 Glucose Ql (U) Negative [facility] - UrinalysisOrder ed By: Renate aHndley on 2025 Protein Ql (U) Negative [facility] Business Continuity Analyst Office Visit Reporton 2025 Business Continuity Analyst Office Visit Report [facility] [address], [address] [place] [address] OFFICE VISIT Date of Service: 02/03/25 MR#: [id number] Acct: [id number] Name: QUAN RODGERS Rep #: [id number] : 2000 Provider: Dr. 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 Normal [facility] Business Continuity Analyst Office Visit Reporton 01-23-2025 Business Continuity Analyst Office Visit Report [facility] [address] [place] [address], [address] [place] [address] OFFICE VISIT Date of Service: 01/23/25 MR#: [id number] Acct: [id number] Name: QUAN RODGERS KELTON Rep #: [id number] : 2000 Provider: Dr. 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 Normal [facility] Absolute lymphocyte countOrd ered By: Dariana Eli on 01-06-2025 Lymphocytes Auto (Unsp spec) [#/Vol] 1.74 10*3/uL 0.83-4.51 [facility] Absolute neutrophil countOrd ered By: Dariana Eli on 01-06-2025 Neutrophils (Bld) [#/Vol] 8.0 10*3/uL High 2.0-7.7 [facility] Automated blood erythrocyte countOrdered By: Dariana Eli on 01-06-2025 RBC (Bld) [#/Vol] 3.97 10*6/uL Low 4.2-5.4 [facility] Comment on above: Performed By: #### L 3890.6301, L7400.0353, L3890.6102, L509.8002, BTS, M100.2200, L3890.6006, L100.0100, L501.9985, L7000.1800, L509.4006 #### [facility] [address] [place], [place], [id number] Automated blood hematocrit ( percentage)Ordered By: Dariana Eli on 01-06-2025 Hematocrit (Bld) [Volume fraction] 36.3 % Low 37-47 [facility] Comment on above: Performed By: #### L 3890.6301, L7400.0353, L3890.6102, L509.8002, BTS, M100.2200, L3890.6006, L100.0100, L501.9985, L7000.1800, L509.4006 #### [facility] [address] [place], [address] Automated lymphocyte count a s percentage of total leukocytesOrdered By: Dariana Eli on 01-06-2025 Lymphocytes/100 WBC Auto (Unsp spec) 16.1 % Low 19-41 [facility] Basophil percentageOrdered B y: Dariana Eli on 01-06-2025 Basophils/100 WBC (Bld) 0.3 % Normal 0-1 [facility] Comment on above: Performed By: #### L 3890.6301, L7400.0353, L3890.6102, L509.8002, BTS, M100.2200, L3890.6006, L100.0100, L501.9985, L7000.1800, L509.4006 #### [facility] [address] [place], [address] CBC W/Diff, Automatedon 12-24 Absolute Lymph 1.74 X10 3/uL Normal 0.83-4.51 [facility] Comment on above: Performed By: #### L 3890.6301, L7400.0353, L3890.6102, L509.8002, BTS, M100.2200, L3890.6006, L100.0100, L501.9985, L7000.1800, L509.4006 #### [facility] [address] [place], [address] Absolute Neut 8.0 X10 3/uL High 2.0-7.7 [facility] Comment on above: Performed By: #### L 3890.6301, L7400.0353, L3890.6102, L509.8002, BTS, M100.2200, L3890.6006, L100.0100, L501.9985, L7000.1800, L509.4006 #### [facility] [address] [place], [address] IG% 0.600 Normal 0.0-0.9 [facility] Comment on above: Result Comment: IG% - Immature Granulocytes (promyelocytes, myelocytes and metamyelocytes) > 1% indicates that a LEFT SHIFT is Present. Performed By: #### L 3890.6301, L7400.0353, L3890.6102, L509.8002, BTS, M100.2200, L3890.6006, L100.0100, L501.9985, L7000.1800, L509.4006 #### [facility] [address] [place], [address] Lymphocytes/100 WBC (Bld) 16.1 % Low 19-41 [facility] Comment on above: Performed By: #### L 3890.6301, L7400.0353, L3890.6102, L509.8002, BTS, M100.2200, L3890.6006, L100.0100, L501.9985, L7000.1800, L509.4006 #### [facility] [address] [place], [address] Nucleated RBC (Bld) [#/Vol] 0 10*3/uL Normal 0-5 [facility] Comment on above: Performed By: #### L 3890.6301, L7400.0353, L3890.6102, L509.8002, BTS, M100.2200, L3890.6006, L100.0100, L501.9985, L7000.1800, L509.4006 #### [facility] [address] [place], [place], [address] RDW SD 41.3 fl Normal 35.1-43.9 [facility] Comment on above: Performed By: #### L 3890.6301, L7400.0353, L3890.6102, L509.8002, BTS, M100.2200, L3890.6006, L100.0100, L501.9985, L7000.1800, L509.4006 #### [facility] [address] [place], [address] Eosinophil percentageOrdered By: Dariana Eli on 01-06-2025 Eosinophils/100 WBC (Bld) 1.3 % Normal 0-5 [facility] Comment on above: Performed By: #### L 3890.6301, L7400.0353, L3890.6102, L509.8002, BTS, M100.2200, L3890.6006, L100.0100, L501.9985, L7000.1800, L509.4006 #### [facility] [address] [place], [place], [address] Erythrocyte distribution wid th ratioOrdered By: Dariana Eli on 01-06-2025 Erythrocyte distribution width (RBC) [Ratio] 12.4 % Normal 11.6-14.6 [facility] Comment on above: Performed By: #### L 3890.6301, L7400.0353, L3890.6102, L509.8002, BTS, M100.2200, L3890.6006, L100.0100, L501.9985, L7000.1800, L509.4006 #### [facility] [address] [place], [address] Erythrocyte distribution wid th standard deviationOrdered By: Dariana Eli on 01-06-2025 Erythrocyte distribution width (RBC) [Ratio] 41.3 fl 35.1-43.9 [facility] Glucose Challenge Gest 1H 50 christie 01-06-2025 GLU GEST 50g 1H 79 mg/dL Normal 70-140 [facility] Comment on above: Performed By: #### L 3890.6301, L7400.0353, L3890.6102, L509.8002, BTS, M100.2200, L3890.6006, L100.0100, L501.9985, L7000.1800, L509.4006 #### [facility] [address] [place], [address] Glucose measurement at 2 hitesh rs post-dose gestational glucose tolerance testOrdered By: Dariana Eli on 01-06-2025 Glucose [Mass/Vol] 79 mg/dL 70-140 [facility] HIVon 01-06-2025 HIV Non-Reactive Normal Nonreactive [facility] Comment on above: Result Comment: Non- Reactive Reactive Repeatedly reactive samples must be confirmed according to CDC recommended confirmatory algorithms. The subresults for either HIVAG or AHIV can be used as an aid in the selection of the confirmation algorithm for reactive samples. Send out specimens with Reactive results to [facility] for confirmation. Order the HIV antibody detection and differentiation: #[id number] Performed By: #### L 3890.6301, L7400.0353, L3890.6102, L509.8002, BTS, M100.2200, L3890.6006, L100.0100, L501.9985, L7000.1800, L509.4006 #### [facility] [address] [place], [address] Hemoglobin measurementOrdere d By: Dariana Eli on 01-06-2025 Hemoglobin (Bld) [Mass/Vol] 12.6 g/dL Normal 12.0-15.0 [facility] Comment on above: Performed By: #### L 3890.6301, L7400.0353, L3890.6102, L509.8002, BTS, M100.2200, L3890.6006, L100.0100, L501.9985, L7000.1800, L509.4006 #### [facility] [address] [place], [address] Immature granulocytes/100 WB C Auto (Bld)Ordered By: Dariana Eli on 01-06-2025 Immature granulocytes/100 WBC (Bld) 0.600 % 0.0-0.9 [facility] Comment on above: IG% - Immature Granu locytes (promyelocytes, myelocytes and metamyelocytes) > 1% indicates that a LEFT SHIFT is Present. MCV (mean corpuscular volume ) determinationOrdered By: Dariana Eli on 01-06-2025 MCV (RBC) [Entitic vol] 91.4 fL Normal 81-99 [facility] Comment on above: Performed By: #### L 3890.6301, L7400.0353, L3890.6102, L509.8002, BTS, M100.2200, L3890.6006, L100.0100, L501.9985, L7000.1800, L509.4006 #### [facility] [address] [place], [address] Mean corpuscular hemoglobin (MCH) determinationOrdered By: Dariana Eli on 01-06-2025 MCH (RBC) [Entitic mass] 31.7 pg Normal 27.0-32.0 [facility] Comment on above: Performed By: #### L 3890.6301, L7400.0353, L3890.6102, L509.8002, BTS, M100.2200, L3890.6006, L100.0100, L501.9985, L7000.1800, L509.4006 #### [facility] [address] [place], [address] Mean corpuscular hemoglobin concentration (MCHC) determinationOrdered By: Dariana Eli on 01-06-2025 MCHC (RBC) [Mass/Vol] 34.7 g/dL Normal 32-36 [facility] Comment on above: Performed By: #### L 3890.6301, L7400.0353, L3890.6102, L509.8002, BTS, M100.2200, L3890.6006, L100.0100, L501.9985, L7000.1800, L509.4006 #### [facility] [address] [place], [address] Mean platelet volume determi nationOrdered By: Dariana Eli on 01-06-2025 Platelet mean volume (Bld) [Entitic vol] 12.4 fL High 6.2-12.0 [facility] Comment on above: Performed By: #### L 3890.6301, L7400.0353, L3890.6102, L509.8002, BTS, M100.2200, L3890.6006, L100.0100, L501.9985, L7000.1800, L509.4006 #### [facility] [address] [place], [place], [address] Monocyte percentageOrdered B y: Dariana Eli on 01-06-2025 Monocytes/100 WBC (Bld) 7.4 % Normal 0-10 [facility] Comment on above: Performed By: #### L 3890.6301, L7400.0353, L3890.6102, L509.8002, BTS, M100.2200, L3890.6006, L100.0100, L501.9985, L7000.1800, L509.4006 #### [facility] [address] [place], [place], [address] Neutrophil percentageOrdered By: Dariana Eli on 01-06-2025 Neutrophils/100 WBC (Bld) 74.3 % High 47-70 [facility] Comment on above: Performed By: #### L 3890.6301, L7400.0353, L3890.6102, L509.8002, BTS, M100.2200, L3890.6006, L100.0100, L501.9985, L7000.1800, L509.4006 #### [facility] [address] [place], [address] No Panel InformationOrdered By: Dariana Eli on 01-06-2025 HIV (1&2) Antibody Non-Reactive Nonreactive [facility] Comment on above: Non-ReactiveReactive Repeatedly reactive samples must be confirmed according to CDC recommended confirmatory algorithms. The subresults for either HIVAG or AHIV can be used as an aid in the selection of the confirmation algorithm for reactive samples.Send out specimens with Reactive results to [facility] for confirmation.Order the HIV antibody detection and differentiation: #[id number] Nucleated red blood cell per centageOrdered By: Dariana Eli on 01-06-2025 Nucleated RBC/100 WBC (Bld) [Ratio] 0 % 0-5 [facility] Business Continuity Analyst Office Visit Reporton 01-06-2025 Business Continuity Analyst Office Visit Report [facility] [address], [address] [place] [address] OFFICE VISIT Date of Service: 01/06/25 MR#: [id number] Acct: [id number] Name: QUAN RODGERS KELTON Rep #: [id number] : 2000 Provider: Dr. 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 Date Name GA/Weeks Outcome Route Bth Weight [facility] Babak [facility] live - full term 8lbs 14oz Male epidural [facility] Renate Handley Max Delivery Date: 11/06/21 Last Updated by: Adri Kimlbe, RN [facility] SM AOD 6 cm boy [...] ??-???-???-???-??? -???-???- (more content not included)... Normal [facility] Platelet countOrdered By: Brigette Eli on 01-06-2025 Platelets (Bld) [#/Vol] 192 10*3/uL Normal 150-450 [facility] Comment on above: Performed By: #### L 3890.6301, L7400.0353, L3890.6102, L509.8002, BTS, M100.2200, L3890.6006, L100.0100, L501.9985, L7000.1800, L509.4006 #### [facility] [address] [place], [place], [id number] Syphilis Antibodieson 2024 Syphilis Abs Non-Reactive Normal Nonreactive [facility] Comment on above: Performed By: #### L 3890.6301, L7400.0353, L3890.6102, L509.8002, BTS, M100.2200, L3890.6006, L100.0100, L501.9985, L7000.1800, L509.4006 #### [facility] [address] [place], [place], [address] White blood cell (WBC) count Ordered By: Dariana Eli on 01-06-2025 WBC (Bld) [#/Vol] 10.8 10*3/uL Normal 4.4-11.0 [facility] Comment on above: Performed By: #### L 3890.6301, L7400.0353, L3890.6102, L509.8002, BTS, M100.2200, L3890.6006, L100.0100, L501.9985, L7000.1800, L509.4006 #### [facility] [address] [place], [place], [id number] Genital Culture Comprehensiv shanon 12-28-2024 VAC Reason for Exam: pelvic pain Normal vaginal josh isolated. No yeast, Gardnerella, Neisseria or beta-hemolytic Streptococcus isolated. Normal [facility] Comment on above: Performed By: #### L 900.0098 #### [facility] [address] [place], [place], [address] Urine Cultureon 12-27-2024 URC Mixed Gram Positive Organisms [place] Count 11,000-25,000 MIXC Mixed contaminants. Submit a new specimen if indicated. Normal [facility] Comment on above: Performed By: #### L 900.0098 #### [facility] [address] [place], [place], [address] Genital cultureOrdered By: Miracle Espinoza on 12-25-2024 Source specific culture Neisseria or beta-hemolytic Streptococcus isolated. [facility] Gram Stainon 12-25-2024 GS Reason for Exam: pelvic pain Gram Stain 4+ Gram positive rods 2+ White Blood Cells No Gram negative diplococci Score = 0 Interpretation: 0-3 Normal, 4-6 Intermediate, 7-10 Positive BV Normal [facility] Comment on above: Performed By: #### L 900.0098 #### [facility] [address] [place], [place], [address] Gram stainOrdered By: Patricia Espinoza on 12-25-2024 Microscopic observation Gram stain Nom (Unsp spec) [facility] Kidney and Bladderon 025 Kidney and Bladder [facility] Imaging Services [address] [place], [place] [address] Kidney and Bladder MR#: [id number] Acct: [id number] Name: QUAN RODGERS KELTON Rep #: [id number] : 2000 F 24 From: Guzman Kidd MD PCP: Care Physician,No Primary Status: REG CLI Study: Kidney and Bladder Date of Exam: 12/25/24 Exam# [id number] Ordering Dr: Raven Modi DO PROCEDURE: KIDNEY [...] or suspicious solid renal lesion. Reading Location: [id number] CC: Dr. Raven Modi, DO; No Primary Care Physician Casino Investigator: Signed Normal [facility] - Chemistry and C hemistry - challengeOrdered By: Raven Espinoza on 12-25-2024 Bilirubin Ql (U) Negative [facility] Glucose Ql (U) Negative [facility] Ketones Ql (U) Negative [facility] pH (U) 5.0 [pH] [facility] Specific gravity (U) [Rel density] 1.030 [facility] Urobilinogen (U) [Mass/Vol] 0.4720766 mg/dL [facility] - Hematology and Cell countsOrdered By: Raven Espinoza on 12-25-2024 Hemoglobin Ql (U) Negative [facility] - Specimen inform ationOrdered By: Raven Espinoza on 12-25-2024 Clarity (U) Cloudy [facility] Color (U) Straw [facility] - UrinalysisOrder ed By: Raven Espinoza on 12-25-2024 Nitrite Ql (U) Negative [facility] Protein Ql (U) 1+ [facility] No Panel InformationOrdered By: Raven Espinoza on 12-25-2024 Urine Leukocytes Negatve [facility] OB Triage Physician Noteon 0 12-25-2024 OB Triage Physician Note [facility] Medical Records Department [address] [place] [address] OB Triage Physician Note 12/25/242022 MR#: [id number] Acct: [id number] Name: QUAN RODGERS KELTON Rep #: [id number] : 2000 24 From: Raven Modi DO PCP: Care Physician,No Primary Status:DEP CLI Y Location: [facility] - General HPI Jun RODGERS, is a 24 y/o @ 26 weeks 2 dasy who presents tto L D with the complaint of "10/10" left lower quadrant pain. 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 Date Name GA/Weeks Outcome Route Bth Weight Gen Labor Lgth Anesthesia Del Fidelatn Provider FOB 11/06/21 Babak 39 live - full term 8lbs 14oz Male epidural [facility] Renate Farfan Delivery Date: 11/06/21 Last Updated [...] 2 oz (more content not included)... Normal [facility] Business Continuity Analyst Office Visit Reporton 12-25-2024 Business Continuity Analyst Office Visit Report [facility] [address] [place] [address], [address] [place] [address] OFFICE VISIT Date of Service: 12/25/24 MR#: [id number] Acct: [id number] Name: QUAN RODGERS Rep #: [id number] : 2000 Provider: Dr. 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 (more content not included)... Normal [facility] Transvaginal w/Preg USon Transvaginal w/Preg US [facility] Services [address] [place], [place] [address] Transvaginal w/Preg US MR#: [id number] Acct: [id number] Name: [facility] Rep #: [id number] : 2000 F 24 From: Guzman Kidd MD PCP: Care Physician,No Primary Status: [facility] Study: Transvaginal w/Preg US Date of Exam: 12/25/24 Exam# [id number] Ordering Dr: Raven Modi DO PROCEDURE: TRANSVAGINAL [...] minute. Left ovary not evaluated Reading Location: [id number] CC: Dr. Raven Modi, DO; No Primary Care Physician Casino Investigator: Signed Normal [facility] Urine cultureOrdered By: Sophia Espinoza on 12-25-2024 Bacteria identified Cx Nom (U) Positive Abnormal [facility] Business Continuity Analyst Office Visit Reporton 12-20-2024 Business Continuity Analyst Office Visit Report [facility] [address], [address] [place] [address] OFFICE VISIT Date of Service: 12/20/24 MR#: [id number] Acct: [id number] Name: QUAN RODGERS KELTON Rep #: [id number] : 2000 Provider: KEO avalos Age/Sex: 24/F Location[place] [facility] [place] Status: Signed Intake Vital Signs 09/26/24 13:48 11/21/24 10:42 12/20/24 08:29 Height 5 ft 11 in 5 ft 11 in 5 ft 11 in Weight: 262 lb BMI 36.5 BP 114/78 Intake Visit Reasons: 25wk ob Chief Complaint: 25wk OB Dragline Mechanic Required: No Is patient in pain?: No [...] 1 current occupational status: employed 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 Normal [facility] Urine Cultureon 11-23-2024 URC Below infection level. Mixed Gram Positive Organisms [place] Count <1000 MIXC Mixed contaminants. Submit a new specimen if indicated. Normal [facility] Comment on above: Performed By: #### L 900.0098 #### [facility] [address] [place], [place] [address] [place], [place], [address] Laboratory - Chemistry and C hemistry - challengeOrdered By: Renate Handley on 11-21-2024 Bilirubin Ql (U) Small (1+) [facility] Glucose Ql (U) Negative [facility] Ketones Ql (U) Negative [facility] pH (U) 6.0 [pH] [facility] Specific gravity (U) [Rel density] 1.030 [facility] Urobilinogen (U) [Mass/Vol] 0.4172956 mg/dL [facility] - Hematology and Cell countsOrdered By: Renate Handley on 11-21-2024 Hemoglobin Ql (U) Negative [facility] - Specimen inform ationOrdered By: Renate Handley on 11-21-2024 Clarity (U) Clear [facility] Color (U) Dk Yellow [facility] - UrinalysisOrder ed By: Renate Handley on 11-21-2024 Nitrite Ql (U) Negative [facility] Protein Ql (U) Negative [facility] No Panel InformationOrdered By: Renate Handley on 11-21-2024 Urine Leukocytes Negatve [facility] Urine Non-Hemolyzed Blood [facility] Business Continuity Analyst Office Visit Reporton 11-21-2024 Business Continuity Analyst Office Visit Report [facility] [address], [address] [place] [address] OFFICE VISIT Date of Service: 11/21/24 MR#: [id number] Acct: [id number] Name: QUAN RODGERS Rep #: [id number] : 2000 Provider: Dr. 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 ??-???-???-???- (more content not included)... Normal [facility] Urine cultureOrdered By: Eric Handley on 11-21-2024 Bacteria identified Cx Nom (U) Positive Abnormal [facility] OB Anatomy w/ Transvaginalon 11-12-2024 OB Anatomy w/ Transvaginal [facility] Services [address] [place], [place] [address] OB Anatomy w/ Transvaginal MR#: [id number] Acct: [id number] Name: QUAN RODGERS KELTON Rep #: [id number] : 2000 F 24 From: Royce krueger MD PCP: Care Physician,No Primary Status: REG CLI Study: OB Anatomy w/ Transvaginal Date of Exam: 11/12 Exam# [id number] Ordering Dr: Geneva Wheeler ELECTRICIAN SUBSTATION SUPERVISOR ELECTRICIAN SUBSTATION SUPERVISOR -C PROCEDURE: OB ANATOMY W/ TRANSVAGINAL 11/12/2024 [...] 19 weeks and 4 days. Reading Location: [facility] CC: DANIEL Wheeler; No Primary Care Physician Casino Investigator: Signed Normal [facility] Urine Cultureon 10-27-2024 URC Mixed Gram Positive Organisms [place] Count 25,000-50,000 MIXC Mixed contaminants. Submit a new specimen if indicated. Normal [facility] Comment on above: Performed By: #### L 900.0098 #### [facility] [address] [place], [address] Bilirubin Test strip Ql (U)O rdered By: Heraclio Ornelas on 10-25-2024 Bilirubin Ql (U) 1 mg/dL High Negative [facility] Comment on above: COLOR OF URINE MAY A FFECT DIPSTICK RESULTS. Emergency Department Summary on 10-25-2024 Emergency Department Summary [facility] Medical Records Department [address] [place] [address] Emergency Department Summary 10/25/24 MR#: [id number] Acct: [id number] Name: QUAN RODGERS KELTON Rep #: [id number] : 2000 24 From: Heraclio Ornelas DO PCP: Care Physician,No Primary Status:DEP ER Location: ED Patient was seen and examined with physician assistant professor in family studies All components of the history and physical [...] abdominal pain or bleeding. No urinary symptoms. 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 [...] 18:55 Temper (more content not included)... Normal [facility] Ketones Test strip Ql (U)Ord ered By: Heracloi Ornelas on 10-25-2024 Ketones Ql (U) 5 mg/dl High Negative [facility] Microscopic analysis of urin e for red blood cells (RBC)Ordered By: Heraclio Ornelas on 10-25-2024 Microscopic analysis of urine for red blood cells (RBC) 0-5 SEEN /hpf 0-5 [facility] Mucus LM Ql (Urine sed)Order ed By: Heraclio Ornelas on 10-25-2024 Mucus Ql (Urine sed) 1+ /hpf [facility] Nitrite Test strip Ql (U)Ord ered By: Heraclio Ornelas on 10-25-2024 Nitrite Ql (U) Negative Negative [facility] Protein Test strip Ql (U)Ord ered By: Heraclio Ornelas on 10-25-2024 Protein Ql (U) 30 mg/dl High Negative [facility] Squamous epithelial cells de tection in urine sediment by light microscopyOrdered By: Heraclio Ornelas on 10-25-2024 Epithelial cells.squamous LM Ql (Urine sed) 0-5 SEEN /hpf 5-10 [facility] Urinalysis, Completeon 10-25 Mucus Ql (Urine sed) 1+ /hpf Normal [facility] Comment on above: Order Comment: MIHCAEL MEEKS TO SPECIFY Performed By: #### L 400.0001 #### [facility] [address] [place], [place], [address] BACTERIA 1+ /hpf Normal None Seen [facility] Comment on above: Order Comment: MICHAEL MEEKS TO SPECIFY Performed By: #### L 400.0001 #### [facility] [address] [place], [address] EPI,SQUAMOUS 0-5 SEEN Normal 5-10 [facility] Comment on above: Order Comment: MICHAEL CTOR TO SPECIFY Performed By: #### L 400.0001 #### [facility] [address] [place], [address] RBC 0-5 SEEN Normal 0-5 [facility] Comment on above: Order Comment: MICHAEL CTOR TO SPECIFY Performed By: #### L 400.0001 #### [facility] [address] [place], [address] WBC 0-5 SEEN Normal 0-5 [facility] Comment on above: Order Comment: MICHAEL CTOR TO SPECIFY Performed By: #### L 400.0001 #### [facility] [address] [place], [address] Urine clarityOrdered By: Brandon Ornelas on 10-25-2024 Clarity (U) Sl. Cloudy Clear [facility] Urine color determinationOrd ered By: Heraclio Ornelas on 10-25-2024 Color (U) Yellow Yellow [facility] Urine cultureOrdered By: Macy Garcia on 10-25-2024 Bacteria identified Cx Nom (U) Positive Abnormal [facility] Urine glucose detectionOrder ed By: Heraclio Ornelas on 10-25-2024 Glucose Ql (U) Normal mg/dl Normal [facility] Urine leukocyte esterase det ection by dipstickOrdered By: Heraclio Ornelas on 10-25-2024 Leukocyte esterase Test strip Ql (U) 25 /ul High Negative [facility] Urine pHOrdered By: Heraclio dias on 10-25-2024 pH (U) 5.0 [pH] 5.0 - 8.0 [facility] Urine sediment bacteria coun t by microscopy (number/high power field)Ordered By: Heraclio Ornelas on 10-25-2024 Bacteria LM.HPF (Urine sed) [#/Area] 1 /[HPF] None Seen [facility] Urine specific gravity measu rementOrdered By: Heraclio Ornelas on 10-25-2024 Specific gravity (U) [Rel density] 1.025 1.002-1.030 [facility] Urine urobilinogen measureme ntOrdered By: Heraclio Guzmáner on 10-25-2024 Urobilinogen Ql (U) 1 mg/dl High Normal [facility] White blood cell countOrdere d By: Heraclio Guzmáner on 10-25-2024 White blood cell count 0-5 SEEN /hpf 0-5 [facility] Business Continuity Analyst Office Visit Reporton 10-21-2024 Business Continuity Analyst Office Visit Report [facility] [address], [address] [place] [address] OFFICE VISIT Date of Service: 10/21/24 MR#: [id number] Acct: [id number] Name: QUAN RODGERS KELTON Rep #: [id number] : 2000 Provider: DANIEL chaparro Age/Sex: 24/F [place] [facility] [place]: Signed Intake Vital Signs 08/29/24 11:11 09/26/24 13:48 10/21/24 08:39 Height 5 ft 10 in 5 ft 11 in 5 ft 11 in Weight: 258 lb 2 oz BMI 36.0 BP 115/71 Intake Visit Reasons: 17 wk ob Dragline Mechanic Required: No Is patient in pain?: No [...] occupational status: employed 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 ??-???-???-???-??? (more content not included)... Normal [facility] Miscellaneous procedureOrder ed By: Raven Espinoza on 10-02-2024 Miscellaneous Test Comment SEE SCANNED REPORT [facility] NATERAon 10-02-2024 ISRAEL SEE SCANNED REPORT Normal [facility] Comment on above: Performed By: #### L 900.0098 #### [facility] [address] [place], [place], [address] Laboratory - Chemistry and C hemistry - challengeOrdered By: Raven Espinoza on 09-26-2024 Glucose Ql (U) Negative [facility] - UrinalysisOrder ed By: Raven Espinoza on 09-26-2024 Protein Ql (U) Negative [facility] Business Continuity Analyst Office Visit Reporton 09-26-2024 Business Continuity Analyst Office Visit Report [facility], [address] [place] [address] OFFICE VISIT Date of Service: 09/26/24 MR#: [id number] Acct: [id number] Name: QUAN RODGERS KELTON Rep #: [id number] : 2000 Provider: Dr. 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 ACOG (more content not included)... Normal [facility] - Chemistry and C hemistry - challengeOrdered By: Raven Espinoza on 09-04-2024 Glucose Ql (U) Negative [facility] - UrinalysisOrder ed By: Raven Espinoza on 09-04-2024 Protein Ql (U) Negative [facility] Business Continuity Analyst Office Visit Reporton 09-04-2024 Business Continuity Analyst Office Visit Report [facility] [address], [address] [place] [address] OFFICE VISIT Date of Service: 09/04/24 MR#: [id number] Acct: [id number] Name: QUAN RODGERS KELTON Rep #: [id number] : 2000 Provider: Dr. 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 Normal [facility] PAP I-G w/rfx hrHPV-Aptimaon 09-04-2024 ADEQ Comment Normal . [facility] Comment on above: Order Comment: Speci men Comment: [id number] Comment: Source.............CervixSpecimen Comment: Other..............Specimen Comment: No. of containers..01 ThinPrep Vial Result Comment: Sati sfactory for evaluation. Endocervical and/or squamous metaplastic cells (endocervical component) are present. Performed By: #### L 3890.6301, L7400.0353, L3890.6102, L509.8002, BTS, M100.2200, L3890.6006, L100.0100, L501.9985, L7000.1800, L509.4006 ####[facility] [address] [place], [address] COMM . Normal . [facility] Comment on above: Order Comment: Speci men Comment: [id number] Comment: Source.............CervixSpecimen Comment: Other..............Specimen Comment: No. of containers..01 ThinPrep Vial Performed By: #### L 3890.6301, L7400.0353, L3890.6102, L509.8002, BTS, M100.2200, L3890.6006, L100.0100, L501.9985, L7000.1800, L509.4006 ####[facility] [address] [place], [place], [address] COMMENT Comment Normal . [facility] Comment on above: Order Comment: Speci men Comment: [id number] Comment: Source.............CervixSpecimen Comment: Other..............Specimen Comment: No. of containers..01 ThinPrep Vial Result Comment: This liquid based ThinPrep(R) pap test was screened with the use of an image guided system. Performed By: #### L 3890.6301, L7400.0353, L3890.6102, L509.8002, BTS, M100.2200, L3890.6006, L100.0100, L501.9985, L7000.1800, L509.4006 ####[facility] [address] [place], [place], [address] DIAG Comment Normal . [facility] Comment on above: Order Comment: Speci men Comment: [id number] Comment: Source.............CervixSpecimen Comment: Other..............Specimen Comment: No. of containers..01 ThinPrep Vial Result Comment: NEGA TIVE FOR INTRAEPITHELIAL LESION OR MALIGNANCY. THIS SPECIMEN WAS RESCREENED PART OF OUR MICROFILM MACHINE OPERATOR PROGRAM. Performed By: #### L 3890.6301, L7400.0353, L3890.6102, L509.8002, BTS, M100.2200, L3890.6006, L100.0100, L501.9985, L7000.1800, L509.4006 ####[facility] [address] [place], [place], [address] HPV RFLX Comment Normal . [facility] Comment on above: Order Comment: Speci men Comment: [id number] Comment: Source.............CervixSpecimen Comment: Other..............Specimen Comment: No. of containers..01 ThinPrep Vial Result Comment: The HPV DNA reflex criteria were not met with this specimen result therefore, no HPV testing was performed. Performed at: [address] [id number] Crating And Moving Estimator: Sheryl Melendez MD, Phone: [phone] Performed By: #### L 3890.6301, L7400.0353, L3890.6102, L509.8002, BTS, M100.2200, L3890.6006, L100.0100, L501.9985, L7000.1800, L509.4006 ####[facility] [address] [place], [address] PAPSMR Comment Normal . [facility] Comment on above: Order Comment: Speci men Comment: [id number] Comment: Source.............CervixSpecimen Comment: Other..............Specimen Comment: No. of [...] reports do occur. Performed By: #### L 3890.6301, L7400.0353, L3890.6102, L509.8002, BTS, M100.2200, L3890.6006, L100.0100, L501.9985, L7000.1800, L509.4006 ####[facility] [address] [place], [address] PERFORM Comment Normal . [facility] Comment on above: Order Comment: Speci men Comment: [id number] Comment: Source.............CervixSpecimen Comment: Other..............Specimen Comment: No. of containers..01 ThinPrep Vial Result Comment: Selina Burks, Engine Lathe Set Up Operator (ASCP) Performed By: #### L 3890.6301, L7400.0353, L3890.6102, L509.8002, BTS, M100.2200, L3890.6006, L100.0100, L501.9985, L7000.1800, L509.4006 ####[facility] [address] [place], [place], [id number] QC REV Comment Normal . [facility] Comment on above: Order Comment: Speci men Comment: [id number] Comment: Source.............CervixSpecimen Comment: Other..............Specimen Comment: No. of containers..01 ThinPrep Vial Result Comment: Lala Rockwell, Engine Lathe Set Up Operator (ASCP) Performed By: #### L 3890.6301, L7400.0353, L3890.6102, L509.8002, BTS, M100.2200, L3890.6006, L100.0100, L501.9985, L7000.1800, L509.4006 ####[facility] [address] [place], [place], [id number] Chlamydia/GC DEVENDRA aptimaon CHLAMY,NUC ACID Negative Normal Negative [facility] Comment on above: Performed By: #### L 3890.6301, L7400.0353, L3890.6102, L509.8002, BTS, M100.2200, L3890.6006, L100.0100, L501.9985, L7000.1800, L509.4006 ####[facility] [address] [place], [place], [id number] GC BY NUC ACID Negative Normal Negative [facility] Comment on above: Result Comment: Perf ormed at: =G - [facility] [address] [id number] Crating And Moving Estimator: Sheryl Melendez MD, Phone: [phone] Performed By: #### L 3890.6301, L7400.0353, L3890.6102, L509.8002, BTS, M100.2200, L3890.6006, L100.0100, L501.9985, L7000.1800, L509.4006 ####[facility] [address] [place], [address] Urine Cultureon 08-31-2024 URC Mixed Gram Positive Organisms [place] Count 25,000-50,000 MIXC Mixed contaminants. Submit a new specimen if indicated. Normal [facility] Comment on above: Performed By: #### L 900.0098 #### [facility] [address] [place], [place], [id number] URC Mixed Gram Positive Organisms [place] Count 11,000-25,000 MIXC Mixed contaminants. Submit a new specimen if indicated. Normal [facility] Comment on above: Performed By: #### L 3890.6301, L7400.0353, L3890.6102, L509.8002, BTS, M100.2200, L3890.6006, L100.0100, L501.9985, L7000.1800, L509.4006 ####[facility] [address] [place], [place], [id number] Amorphous sediment detection in urine sediment by light microscopyOrdered By: Christiano Villafuerte on 08-30-2024 Amorphous sediment LM Ql (Urine sed) 1+ URATE [facility] Bacteria LM.HPF (Urine sed) [#/Area]Ordered By: Christiano Villafuerte on 08-30-2024 Urine Bacteria RARE /hpf None Seen [facility] Bilirubin Test strip Ql (U)O rdered By: Christiano Villafuerte on 08-30-2024 Bilirubin Ql (U) Negative Negative [facility] Emergency Department Summary on 08-30-2024 Emergency Department Summary [facility] Medical Records Department [address] [place] [address] Emergency Department Summary 08/30/24 MR#: [id number] Acct: [id number] Name: QUAN RODGERS KELTON Rep #: [id number] : 2000 24 From: Christiano Villafuerte MD [...] had a checkup in the office and transfer operator did an ultrasound and told her she had an IUP. G2, . She states she was having some trouble urinating tonight 2, when she felt like she needed to go she only dribbled a little. She denies any hematuria. No dysuria. No pain in her flank or back. No nausea or vomiting. No fevers or chills. Normal bowel movements. 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 Normal [facility] Epithelial cells.squamous LM Ql (Urine sed)Ordered By: Christiano Villafuerte on 08-30-2024 Epithelial cells.squamous LM.HPF (Urine sed) [#/Area] 10 /[HPF] 5-10 [facility] Glucose Ql (U)Ordered By: Riley Villafuerte on 08-30-2024 Urine Glucose (UA) Normal mg/dl Normal [facility] HCG ( test) QlOrder ed By: Christiano Villafuerte on 08-30-2024 Human Chorionic Gonadotropin, Quant 103428 mIU/mL High <9 [facility] Comment on above: Gestational Age0.2-1 Week: 5-50 mIU/mL1-2 Weeks: 50-500 mIU/mL2-3 Weeks: 100-5000 mIU/mL3-4 Weeks: 500-10,000 mIU/mL4-5 Weeks:1000-50,000 mIU/mL5-6 Weeks: 10,000-100,000 mIU/mL6-8 Weeks: 15,000-200,000 mIU/mL2-3 Months:10,000-100,000 mIU/mL Ketones Test strip Ql (U)Ord ered By: Christiano Villafuerte on 08-30-2024 Ketones Ql (U) Negative Negative [facility] Microscopic analysis of urin e for red blood cells (RBC)Ordered By: Christiano Villafuerte on 08-30-2024 Microscopic analysis of urine for red blood cells (RBC) 0 SEEN /hpf 0-5 [facility] Urine RBC 0 SEEN /hpf 0-5 [facility] Mucus LM Ql (Urine sed)Order ed By: Christiano Villafuerte on 08-30-2024 Mucus Ql (Urine sed) 0 SEEN /hpf [facility] Nitrite Test strip Ql (U)Ord ered By: Christiano Villafuerte on 08-30-2024 Nitrite Ql (U) Negative Negative [facility] Protein Test strip Ql (U)Ord ered By: Christiano Villafuerte on 08-30-2024 Protein Ql (U) 30 mg/dl High Negative [facility] Serum human chorionic gonado tropin detection for pregnancyOrdered By: Christiano Villafuerte on 08-30-2024 HCG ( test) Ql 847549 mIU/mL High <9 [facility] Comment on above: Gestational Age0.2-1 Week: 5-50 mIU/mL1-2 Weeks: 50-500 mIU/mL2-3 Weeks: 100-5000 mIU/mL3-4 Weeks: 500-10,000 mIU/mL4-5 Weeks:1000-50,000 mIU/mL5-6 Weeks: 10,000-100,000 mIU/mL6-8 Weeks: 15,000-200,000 mIU/mL2-3 Months:10,000-100,000 mIU/mL Squamous epithelial cells de tection in urine sediment by light microscopyOrdered By: Christiano Villafuerte on 08-30-2024 Epithelial cells.squamous LM Ql (Urine sed) 10-25 SEEN /hpf 5-10 [facility] Transvaginal w/Preg USon Transvaginal w/Preg US [facility] [address] [place] [address] Transvaginal w/Preg US MR#: [id number] Acct: [id number] Name: VISHALQUAN KELTON Rep #: [id number] : 2000 F 24 From: Lukas Lynn MD PCP: Care Physician,No Primary Status: REG ER Study: Transvaginal w/Preg US Date of Exam: 08/30/24 Exam# [id number] Ordering Dr: Christiano Villafuerte MD PROCEDURE: TRANSVAGINAL [...] tones 177 beats per minute.. Reading Location: [id number] CC: Dr. Christiano Villafuerte MD; No Primary Care Physician Casino Investigator: Signed Normal [facility] Urinalysis, Completeon 08-30 AMORPHOUS 1+ URATE Normal [facility] Comment on above: Order Comment: CLEAN CATCH Performed By: #### L 400.0001 ####[facility] [address] [place], [address] BACTERIA RARE Normal None Seen [facility] Comment on above: Order Comment: CLEAN CATCH Performed By: #### L 400.0001 ####[facility] [address] [place], [address] EPI,SQUAMOUS 10-25 SEEN Normal 5-10 [facility] Comment on above: Order Comment: CLEAN CATCH Performed By: #### L 400.0001 ####[facility] [address] [place], [address] RBC 0 SEEN Normal 0-5 [facility] Comment on above: Order Comment: CLEAN CATCH Performed By: #### L 400.0001 ####[facility] [address] [place], [address] WBC 5-10 SEEN Normal 0-5 [facility] Comment on above: Order Comment: CLEAN CATCH Performed By: #### L 400.0001 ####[facility] [address] [place], [address] Mucus Ql (Urine sed) 0 SEEN Normal [facility] Comment on above: Order Comment: CLEAN CATCH Performed By: #### L 400.0001 ####[facility] [address] [place], [address] Urine blood detectionOrdered By: Christiano Villafuerte on 08-30-2024 Urine Occult Blood Negative Negative [facility] Urine clarityOrdered By: Kevin Villafuerte on 08-30-2024 Clarity (U) Cloudy Clear [facility] Urine color determinationOrd ered By: Christiano Villafuerte on 08-30-2024 Color (U) Yellow Yellow [facility] Urine cultureOrdered By: Kevin Villafuerte on 08-30-2024 Bacteria identified Cx Nom (U) Positive Abnormal [facility] Urine glucose detectionOrder ed By: Christiano Villafuerte on 08-30-2024 Glucose Ql (U) Normal mg/dl Normal [facility] Urine leukocyte esterase det ection by dipstickOrdered By: Christiano Villafuerte on 08-30-2024 Leukocyte esterase Test strip Ql (U) 100 /ul High Negative [facility] Urine pHOrdered By: Christiano Villafuerte on 08-30-2024 pH (U) 6.0 [pH] 5.0 - 8.0 [facility] Urine sediment bacteria coun t by microscopy (number/high power field)Ordered By: Christiano Villafuerte on 08-30-2024 Bacteria LM.HPF (Urine sed) [#/Area] RARE /hpf None Seen [facility] Urine specific gravity measu rementOrdered By: Christiano Villafuerte on 08-30-2024 Specific gravity (U) [Rel density] 1.025 1.002-1.030 [facility] Urine urobilinogen measureme ntOrdered By: Christiano Villafuerte on 08-30-2024 Urobilinogen Ql (U) 1 mg/dl High Normal [facility] Urobilinogen Ql (U)Ordered B y: Christiano Villafuerte on 08-30-2024 Urobilinogen (U) [Mass/Vol] 1 mg/dL High Normal [facility] White blood cell countOrdere d By: Christiano Villafuerte on 08-30-2024 Urine WBC 5-10 SEEN /hpf 0-5 [facility] White blood cell count 5-10 SEEN /hpf 0-5 [facility] hCG Titer Quant., Serumon HCG QUANT. 711100 mIU/mL High <9 non-preg [facility] Comment on above: Result Comment: Gest ational Age 0.2-1 Week: 5-50 mIU/mL 1-2 Weeks: 50-500 mIU/mL 2-3 Weeks: 100-5000 mIU/mL 3-4 Weeks: 500-10,000 mIU/mL 4-5 Weeks:1000-50,000 mIU/mL 5-6 Weeks: 10,000-100,000 mIU/mL 6-8 Weeks: 15,000-200,000 mIU/mL 2-3 Months:10,000-100,000 mIU/mL Performed By: #### L 700.8000 ####[facility] [address] [place], [address] Absolute lymphocyte countOrd ered By: Shell Curry on 08-29-2024 Lymphocytes Auto (Unsp spec) [#/Vol] 2.01 10*3/uL 0.83-4.51 [facility] Absolute neutrophil countOrd ered By: Shell Curry on 08-29-2024 Neutrophils (Bld) [#/Vol] 6.1 10*3/uL 2.0-7.7 [facility] Automated lymphocyte count a s percentage of total leukocytesOrdered By: Shell Curry on 08-29-2024 Lymphocytes/100 WBC Auto (Unsp spec) 22.5 % 19-41 [facility] Basophil percentageOrdered B y: Shell Curry on 08-29-2024 Basophils/100 WBC (Bld) 0.6 % 0-1 [facility] C. trachomatis rRNA DEVENDRA+prob e Ql (Unsp spec)Ordered By: Shell Curry on 08-29-2024 Chlamydia DNA (DEVENDRA) Negative Negative [facility] CBC W/Diff, Automatedon Absolute Lymph 2.01 X10 3/uL Normal 0.83-4.51 [facility] Comment on above: Performed By: #### L 3890.6301, L7400.0353, L3890.6102, L509.8002, BTS, M100.2200, L3890.6006, L100.0100, L501.9985, L7000.1800, L509.4006 #### [facility] [address] [place], [address] Absolute Neut 6.1 X10 3/uL Normal 2.0-7.7 [facility] Comment on above: Performed By: #### L 3890.6301, L7400.0353, L3890.6102, L509.8002, BTS, M100.2200, L3890.6006, L100.0100, L501.9985, L7000.1800, L509.4006 #### [facility] [address] [place], [address] Basophils/100 WBC (Bld) 0.6 % Normal 0-1 [facility] Comment on above: Performed By: #### L 3890.6301, L7400.0353, L3890.6102, L509.8002, BTS, M100.2200, L3890.6006, L100.0100, L501.9985, L7000.1800, L509.4006 #### [facility] [address] [place], [address] Eosinophils/100 WBC (Bld) 0.8 % Normal 0-5 [facility] Comment on above: Performed By: #### L 3890.6301, L7400.0353, L3890.6102, L509.8002, BTS, M100.2200, L3890.6006, L100.0100, L501.9985, L7000.1800, L509.4006 #### [facility] [address] [place], [address] Erythrocyte distribution width (RBC) [Ratio] 11.9 % Normal 11.6-14.6 [facility] Comment on above: Performed By: #### L 3890.6301, L7400.0353, L3890.6102, L509.8002, BTS, M100.2200, L3890.6006, L100.0100, L501.9985, L7000.1800, L509.4006 #### [facility] [address] [place], [address] Hematocrit (Bld) [Volume fraction] 38.2 % Normal 37-47 [facility] Comment on above: Performed By: #### L 3890.6301, L7400.0353, L3890.6102, L509.8002, BTS, M100.2200, L3890.6006, L100.0100, L501.9985, L7000.1800, L509.4006 #### [facility] [address] [place], [address] Hemoglobin (Bld) [Mass/Vol] 13.0 g/dL Normal 12.0-15.0 [facility] Comment on above: Performed By: #### L 3890.6301, L7400.0353, L3890.6102, L509.8002, BTS, M100.2200, L3890.6006, L100.0100, L501.9985, L7000.1800, L509.4006 #### [facility] [address] [place], [address] IG% 0.400 Normal 0.0-0.9 [facility] Comment on above: Result Comment: IG% - Immature Granulocytes (promyelocytes, myelocytes and metamyelocytes) > 1% indicates that a LEFT SHIFT is Present. Performed By: #### L 3890.6301, L7400.0353, L3890.6102, L509.8002, BTS, M100.2200, L3890.6006, L100.0100, L501.9985, L7000.1800, L509.4006 #### [facility] [address] [place], [address] Lymphocytes/100 WBC (Bld) 22.5 % Normal 19-41 [facility] Comment on above: Performed By: #### L 3890.6301, L7400.0353, L3890.6102, L509.8002, BTS, M100.2200, L3890.6006, L100.0100, L501.9985, L7000.1800, L509.4006 #### [facility] [address] [place], [address] MCH (RBC) [Entitic mass] 30.2 pg Normal 27.0-32.0 [facility] Comment on above: Performed By: #### L 3890.6301, L7400.0353, L3890.6102, L509.8002, BTS, M100.2200, L3890.6006, L100.0100, L501.9985, L7000.1800, L509.4006 #### [facility] [address] [place], [address] MCHC (RBC) [Mass/Vol] 34.0 g/dL Normal 32-36 [facility] Comment on above: Performed By: #### L 3890.6301, L7400.0353, L3890.6102, L509.8002, BTS, M100.2200, L3890.6006, L100.0100, L501.9985, L7000.1800, L509.4006 #### [facility] [address] [place], [address] MCV (RBC) [Entitic vol] 88.6 fL Normal 81-99 [facility] Comment on above: Performed By: #### L 3890.6301, L7400.0353, L3890.6102, L509.8002, BTS, M100.2200, L3890.6006, L100.0100, L501.9985, L7000.1800, L509.4006 #### [facility] [address] [place], [address] Monocytes/100 WBC (Bld) 7.9 % Normal 0-10 [facility] Comment on above: Performed By: #### L 3890.6301, L7400.0353, L3890.6102, L509.8002, BTS, M100.2200, L3890.6006, L100.0100, L501.9985, L7000.1800, L509.4006 #### [facility] [address] [place], [address] Neutrophils/100 WBC (Bld) 67.8 % Normal 47-70 [facility] Comment on above: Performed By: #### L 3890.6301, L7400.0353, L3890.6102, L509.8002, BTS, M100.2200, L3890.6006, L100.0100, L501.9985, L7000.1800, L509.4006 #### [facility] [address] [place], [address] Nucleated RBC (Bld) [#/Vol] 0 10*3/uL Normal 0-5 [facility] Comment on above: Performed By: #### L 3890.6301, L7400.0353, L3890.6102, L509.8002, BTS, M100.2200, L3890.6006, L100.0100, L501.9985, L7000.1800, L509.4006 #### [facility] [address] [place], [address] Platelet mean volume (Bld) [Entitic vol] 11.1 fL Normal 6.2-12.0 [facility] Comment on above: Performed By: #### L 3890.6301, L7400.0353, L3890.6102, L509.8002, BTS, M100.2200, L3890.6006, L100.0100, L501.9985, L7000.1800, L509.4006 #### [facility] [address] [place], [address] Platelets (Bld) [#/Vol] 254 10*3/uL Normal 150-450 [facility] Comment on above: Performed By: #### L 3890.6301, L7400.0353, L3890.6102, L509.8002, BTS, M100.2200, L3890.6006, L100.0100, L501.9985, L7000.1800, L509.4006 #### [facility] [address] [place], [address] RBC (Bld) [#/Vol] 4.31 10*6/uL Normal 4.2-5.4 [facility] Comment on above: Performed By: #### L 3890.6301, L7400.0353, L3890.6102, L509.8002, BTS, M100.2200, L3890.6006, L100.0100, L501.9985, L7000.1800, L509.4006 #### [facility] [address] [place], [address] RDW SD 38.4 fl Normal 35.1-43.9 [facility] Comment on above: Performed By: #### L 3890.6301, L7400.0353, L3890.6102, L509.8002, BTS, M100.2200, L3890.6006, L100.0100, L501.9985, L7000.1800, L509.4006 #### [facility] [address] [place], [address] WBC (Bld) [#/Vol] 8.9 10*3/uL Normal 4.4-11.0 [facility] Comment on above: Performed By: #### L 3890.6301, L7400.0353, L3890.6102, L509.8002, BTS, M100.2200, L3890.6006, L100.0100, L501.9985, L7000.1800, L509.4006 #### [facility] [address] [place], [address] Cervical or vagninal specime n microscopic examination by cytology stain (reported asOrdered By: Shell Curry on 08-29-2024 Cytology report Cyto stain Doc (Cvx/Vag) Comment . [facility] Comment on above: The Pap smear [...] rRNA DEVENDRA+probe Ql (Unsp spec) Negative Negative [facility] Packaging Materials Inspector Cyto stain Nom (C vx/Vag) [ID]Ordered By: Shell Curry on 08-29-2024 Pap Smear Performed By Comment . [facility] Comment on above: Selina Burks, Cytotec hnologist (ASCP) Cytology report Cyto stain D oc (Cvx/Vag)Ordered By: Shell Curry on 08-29-2024 Thin Prep Pap Smear Comment . [facility] Comment on above: The Pap smear is a s creening test designed to aid in thedetection of premalignant and malignant conditions of theuterine cervix. It is not a diagnostic procedure andshould not be used as the sole means of detecting cervicalcancer. Both false-positive and false-negative reports dooccur. Eosinophil percentageOrdered By: Shell Curry on 08-29-2024 Eosinophils/100 WBC (Bld) 0.8 % 0-5 [facility] Erythrocyte distribution wid th ratioOrdered By: Shell Curry on 08-29-2024 Erythrocyte distribution width (RBC) [Ratio] 11.9 % 11.6-14.6 [facility] Erythrocyte distribution wid th standard deviationOrdered By: Shell Curry on 08-29-2024 Erythrocyte distribution width (RBC) [Entitic vol] 38.4 fL 35.1-43.9 [facility] Erythrocyte distribution width (RBC) [Ratio] 38.4 fl 35.1-43.9 [facility] HBV surface Ag Ql (S)Ordered By: Shell Curry on 08-29-2024 Hepatitis B Surface Antigen Non-Reactive Nonreactive [facility] Comment on above: Reactive: Presumptiv e evidence of HBV. Repeatedly reactive samples must be confirmed using a neutralization test ([employer] HBsAg Confirmatory Test)Non-Reactive: HBsAg not detected; does not exclude the possibility of exposure to HBV Hematocrit Auto (Bld) [Volum e fraction]Ordered By: Shell Curry on 08-29-2024 Hematocrit (Bld) [Volume fraction] 38.2 % 37-47 [facility] Hemoglobin A1con 08-29-2024 HbA1c (Bld) [Mass fraction] 5.1 % Low <=5.6 [facility] Comment on above: Performed By: #### L 3890.6301, L7400.0353, L3890.6102, L509.8002, BTS, M100.2200, L3890.6006, L100.0100, L501.9985, L7000.1800, L509.4006 ####[facility] [address] [place], [address] Hemoglobin A1c percentageOrd ered By: Shell Curry on 08-29-2024 HbA1c (Bld) [Mass fraction] 5.1 % Low >5.7 [facility] Hemoglobin measurementOrdere d By: Shell Curry on 08-29-2024 Hemoglobin (Bld) [Mass/Vol] 13.0 g/dL 12.0-15.0 [facility] Hepatitis C antibodyOrdered By: Shell Curry on 08-29-2024 Hepatitis C Antibody Non-Reactive Nonreactive [facility] Comment on above: Reactive: Presumptiv e evidence of antibodies to HCV. Follow CDC recommendations for supplemental testing.Non-Reactive: Antibodies to HCV were not detected; does not exclude the possibility of exposure to HCVReactive Results are presumptive evidence of antibodies to HCV. Follow CDC recommendations for supplemental testing.Order confirmation testing: HCV Quant by PCR testing - HCVPCR #[id number] Non Reactive: < 0.8 Equivocal: >/= 0.8 to < 1.0 Reactive: >/= 1.0The CDC requires that a reactive/equivocal HCV antibody result be sent out for confirmation. HCV Quant by PCR testing. Image-guided ThinPrep PapOrd ered By: Shell Curry on 08-29-2024 Pap Smear Note Comment . [facility] Comment on above: This liquid based Th inPrep(R) pap test was screened withthe use of an image guided system. Image-guided liquid-based Pa pOrdered By: Shell Curry on 08-29-2024 Pap Smear Diagnosis Comment . [facility] Comment on above: NEGATIVE FOR INTRAEP ITHELIAL LESION OR MALIGNANCY.THIS SPECIMEN WAS RESCREENED PART OF OUR MICROFILM MACHINE OPERATOR PROGRAM. Image-guided liquid-based ce rvical Pap w high-risk HPV+reflex to HPV 16+18Ordered By: Shell Curry on 08-29-2024 Human Papillomavirus Screen Comment . [facility] Comment on above: The HPV DNA reflex c riteria were not met with this specimenresult therefore, no HPV testing was performed.Performed at: [facility] [address] [id number] Director: Sheryl Melendez MD, Phone: [phone] Immature granulocytes/100 WB C Auto (Bld)Ordered By: Shell Curry on 08-29-2024 Immature granulocytes/100 WBC (Bld) 0.400 % 0.0-0.9 [facility] Comment on above: IG% - Immature Granu locytes (promyelocytes, myelocytes and metamyelocytes) > 1% indicates that a LEFT SHIFT is Present. L3890.6006on 08-29-2024 HIV Non-Reactive Normal Nonreactive [facility] Comment on above: Result Comment: Non- Reactive Reactive Repeatedly reactive samples must be confirmed according to CDC recommended confirmatory algorithms. The subresults for either HIVAG or AHIV can be used as an aid in the selection of the confirmation algorithm for reactive samples. Send out specimens with Reactive results to [facility] for confirmation. Order the HIV antibody detection and differentiation: [id number] Performed By: #### L 3890.6301, L7400.0353, L3890.6102, L509.8002, BTS, M100.2200, L3890.6006, L100.0100, L501.9985, L7000.1800, L509.4006 #### [facility] [address] [place], [place], [address] L3890.6102on 08-29-2024 HEP B Surf Ag Non-Reactive Normal Nonreactive [facility] Comment on above: Result Comment: Reac tive: Presumptive evidence of HBV. Repeatedly reactive samples must be confirmed using a neutralization test ([employer] HBsAg Confirmatory Test) Non-Reactive: HBsAg not detected; does not exclude the possibility of exposure to HBV Performed By: #### L 3890.6301, L7400.0353, L3890.6102, L509.8002, BTS, M100.2200, L3890.6006, L100.0100, L501.9985, L7000.1800, L509.4006 ####[facility] [address] [place], [place], [address] L3890.6301on 08-29-2024 Hepatitis C Ab Non-Reactive Normal Nonreactive [facility] Comment on above: Result Comment: Reac tive: Presumptive evidence of antibodies to HCV. Follow CDC recommendations for supplemental testing. Non-Reactive: Antibodies to HCV were not detected; does not exclude the possibility of exposure to HCV Reactive Results are presumptive evidence of antibodies to HCV. Follow CDC recommendations for supplemental testing. Order confirmation testing: HCV Quant by PCR testing - HCVPCR #[id number] Non Reactive: < 0.8 Equivocal: >/= 0.8 to < 1.0 Reactive: >/= 1.0 The CDC requires that a reactive/equivocal HCV antibody result be sent out for confirmation. HCV Quant by PCR testing. Performed By: #### L 3890.6301, L7400.0353, L3890.6102, L509.8002, BTS, M100.2200, L3890.6006, L100.0100, L501.9985, L7000.1800, L509.4006 ####[facility] [id number] [place], [address] L509.4006on 08-29-2024 Rubella IgG REAC Normal Nonreactive [facility] Comment on above: Result Comment: Anti body Result: Interpretation Non-Reactive: Non-Immune Reactive: Immune The following results were obtained with the Elecsys Rubella IgG assay. Results from assays of other manufacturers cannot be used interchangeably. Performed By: #### L 3890.6301, L7400.0353, L3890.6102, L509.8002, BTS, M100.2200, L3890.6006, L100.0100, L501.9985, L7000.1800, L509.4006 #### [facility] [address], [address] L509.8002on 08-29-2024 Syphilis Abs Non-Reactive Normal Nonreactive [facility] Comment on above: Performed By: #### L 3890.6301, L7400.0353, L3890.6102, L509.8002, BTS, M100.2200, L3890.6006, L100.0100, L501.9985, L7000.1800, L509.4006 #### [facility] [address] [place], [place], [id number] Laboratory - CytologyOrdered By: Shell Curry on 08-29-2024 Packaging Materials Inspector Cyto stain Nom (Cvx/Vag) [ID] Comment . [facility] Comment on above: Selina Burks, Cytotec hnologist (ASCP) Laboratory - Microbiology an d Antimicrobial susceptibilityOrdered By: Shell Curry on 08-29-2024 HBV surface Ag Ql (S) Non-Reactive Nonreactive [facility] Comment on above: Reactive: Presumptiv e evidence of HBV. Repeatedly reactive samples must be confirmed using a neutralization test (Elecsys HBsAg Confirmatory Test)Non-Reactive: HBsAg not detected; does not exclude the possibility of exposure to HBV Laboratory - Miscellaneous t estsOrdered By: Shell Curry on 08-29-2024 Service comment (Unsp spec) [Interp] . . [facility] Lymphocytes Auto (Unsp spec) [#/Vol]Ordered By: Shell Curry on 08-29-2024 Lymphocytes (Bld) [#/Vol] 2.01 10*3/uL 0.83-4.51 [facility] Lymphocytes/100 WBC Auto (Un sp spec)Ordered By: Shell Curry on 08-29-2024 Lymphocytes/100 WBC (Bld) 22.5 % 19-41 [facility] MCV (mean corpuscular volume ) determinationOrdered By: Shell Curry on 08-29-2024 MCV (RBC) [Entitic vol] 88.6 fL 81-99 [facility] Mean corpuscular hemoglobin (MCH) determinationOrdered By: Shell Curry on 08-29-2024 MCH (RBC) [Entitic mass] 30.2 pg 27.0-32.0 [facility] Mean corpuscular hemoglobin concentration (MCHC) determinationOrdered By: Shell Curry on 08-29-2024 MCHC (RBC) [Mass/Vol] 34.0 g/dL 32-36 [facility] Mean platelet volume determi nationOrdered By: Shell Curry on 08-29-2024 Platelet mean volume (Bld) [Entitic vol] 11.1 fL 6.2-12.0 [facility] Monocyte percentageOrdered B y: Shell Curry on 08-29-2024 Monocytes/100 WBC (Bld) 7.9 % 0-10 [facility] Neisseria gonorrhoeae nuclei c acid detection by amplified probe techniqueOrdered By: Shell Curry on 08-29-2024 N. gonorrhoeae DNA DEVENDRA+probe Ql (Unsp spec) Negative Negative [facility] Comment on above: Performed at: = - [address] [id number] Director: Sheryl Melendez MD, Phone: [phone] Neutrophil percentageOrdered By: Shell Curry on 08-29-2024 Neutrophils/100 WBC (Bld) 67.8 % 47-70 [facility] No Panel InformationOrdered By: Shell Curry on 08-29-2024 HIV (1&2) Antibody Non-Reactive Nonreactive [facility] Comment on above: Non-ReactiveReactive Repeatedly reactive samples must be confirmed according to CDC recommended confirmatory algorithms. The subresults for either HIVAG or AHIV can be used as an aid in the selection of the confirmation algorithm for reactive samples.Send out specimens with Reactive results to [facility] for confirmation.Order the HIV antibody detection and differentiation: #[id number] Pap Smear QC Review Comment . [facility] Comment on above: Lala Rockwell, Cytot echnologist (ASCP) Pap Smear Specimen Adequacy Comment . [facility] Comment on above: Satisfactory for anna luation. Endocervical and/or squamous metaplasticcells (endocervical component) are present. Nucleated red blood cell per centageOrdered By: Shell Curry on 08-29-2024 Nucleated RBC/100 WBC (Bld) [Ratio] 0 % 0-5 [facility] Business Continuity Analyst Office Visit Reporton 08-29-2024 Business Continuity Analyst Office Visit Report [facility] [address], [address] [place] [address] OFFICE VISIT Date of Service: 08/29/24 MR#: [id number] Acct: [id number] Name: QUAN RODGERS KELTON Rep #: [id number] : 2000 Provider: KEO Ridley ams Age/Sex: 24/F [place] [facility] [place]: Signed Intake Vital Signs 06/16/24 20:27 [...] No current occupational status: employed 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 current occupational exposures/hazards: No pets and animals: [...] times per week duration: < 15 minutes/day aly/episcopal: None seatbelt use: always do you feel [...] - [facility] 8lbs 14oz [facility] Delivery Date: 11/06/21 Last Updated by: [...] 03/31/25 Expected Delivery Route/Plan Repeat C/S with Specific [...] Hepatitis: No (more content not included)... Normal [facility] Platelet countOrdered By: Byron Curry on 08-29-2024 Platelets (Bld) [#/Vol] 254 10*3/uL 150-450 [facility] RBC Auto (Bld) [#/Vol]Ordere d By: Shell Curry on 08-29-2024 RBC (Bld) [#/Vol] 4.31 10*6/uL 4.2-5.4 [facility] Rubella immune status determ ination by IgG antibody assayOrdered By: Shell Curry on 08-29-2024 Rubella IgG Antibody REAC Nonreactive [facility] Comment on above: Antibody Result: Int erpretationNon-Reactive: Non-ImmuneReactive: ImmuneThe following results were obtained with the Elecsys Rubella IgG assay. Results from assays of other manufacturers cannot be used interchangeably. Service comment (Unsp spec) [Interp]Ordered By: Shell Curry on 08-29-2024 Pap Smear Comment (3) . . [facility] T. pallidum abOrdered By: Byron Curry on 08-29-2024 Syphilis Total Antibody Non-Reactive Nonreactiv e [facility] Type AND Screenon 08-29-2024 Ab SCREEN GEL Negative Normal [facility] Comment on above: Order Comment: N Performed By: #### L 3890.6301, L7400.0353, L3890.6102, L509.8002, BTS, M100.2200, L3890.6006, L100.0100, L501.9985, L7000.1800, L509.4006 #### [facility] [address] [place], [address] Urine cultureOrdered By: Jeison Curry on 08-29-2024 Bacteria identified Cx Nom (U) Positive Abnormal [facility] White blood cell (WBC) count Ordered By: Shell Curry on 08-29-2024 WBC (Bld) [#/Vol] 8.9 10*3/uL 4.4-11.0 [facility] Emergency Department Summary on 06-16-2024 Emergency Department Summary [facility] Medical Records Department [address] [place] [address] Emergency Department Summary 06/16/24 MR#: [id number] Acct: [id number] Name: QUAN RODGERS Rep #: [id number] : 2000 24 From: Franco Ortiz DO [...] bleeding would not stop. Here for evaluation. [facility] Medical History Arrest of dilation, delivered, [...] home: Yes additional social history: - Adolph REAL ROS ED ROS Narrative Constitutional: Negative for [...] was give (more content not included)... Normal [facility] Office Visit Reporton 2023 Office Visit Report [facility] [address] [place] [address] OFFICE VISIT Date of Service: 02/29/24 MR#: [id number] Acct: [id number] Patient: QUAN RODGERS KELTON Rep #: [id number] : 2000 Provider: CHANDNI Porter Age/Sex: 24/F Location[place] [facility] [place] Status: Signed Intake Vital Signs 08/15/23 17:35 Height 5 ft 11 in Intake Visit Reasons: PE NON DOT DRUG SCREEN/ [place] Chief Complaint: Depo Allergies No Known Allergies Allergy (Verified 08/15/23 17:37) Office Procedures [facility] Billing Sheet Testing Drug Screen Collection Only: Yes 04/03/2452 Date Frank TARIQ Cosigner Signature: Date (if applicable) CC: Normal [facility] Absolute lymphocyte counton 04-14-2022 Lymphocytes Auto (Unsp spec) [#/Vol] 2.17 10*3/uL 0.83-4.51 [facility] Work Phone: Basophil percentageon 2021 Basophils/100 WBC (Bld) 0.6 % 0-1 [facility] Work Phone: Eosinophils/100 WBC (Bld) 2.6 % 0-5 [facility] Work Phone: Neutrophils (Bld) [#/Vol] 4.0 10*3/uL 2.0-7.7 [facility] Work Phone: Neutrophils/100 WBC (Bld) 56.8 % 47-70 [facility] Work Phone: WBC (Bld) [#/Vol] 7.0 10*3/uL 4.4-11.0 [facility] Work Phone: Beta hCG serum qualon 2021 Beta HCG ( test) Ql Negative [facility] Work Phone: Blood erythrocytes count (nu mber/volume)on 04-14-2022 RBC (Bld) [#/Vol] 4.46 10*6/uL 4.2-5.4 [facility] Work Phone: Blood hemoglobin measurement (mass/volume)on 04-14-2022 Hemoglobin (Bld) [Mass/Vol] 13.1 g/dL 12.0-15.0 [facility] Work Phone: Blood lymphocytes/100 leukoc yteson 04-14-2022 Lymphocytes/100 WBC (Bld) 30.9 % 19-41 [facility] Work Phone: Blood monocytes/100 leukocyt eson 04-14-2022 Monocytes/100 WBC (Bld) 9.0 % 0-10 [facility] Work Phone: Blood platelet mean volumeon 04-14-2022 Platelet mean volume (Bld) [Entitic vol] 11.0 fL 6.2-12.0 [facility] Work Phone: Determination of erythrocyte mean corpuscular volume (MCV)on 04-14-2022 MCV (RBC) [Entitic vol] 86.1 fL 81-99 [facility] Work Phone: Hematocrit Auto (Bld) [Volum e fraction]on 04-14-2022 Hematocrit (Bld) [Volume fraction] 38.4 % 37-47 [facility] Work Phone: Laboratory - Hematology and Cell countson 04-14-2022 Erythrocyte distribution width (RBC) [Entitic vol] 40.1 fL 35.1-43.9 [facility] Work Phone: Erythrocyte distribution width (RBC) [Ratio] 12.8 % 11.6-14.6 [facility] Work Phone: [phone] Immature granulocytes/100 WBC (Bld) 0.100 % 0.0-0.9 [facility] Work Phone: [phone] Comment on above: IG% - Immature Granu locytes (promyelocytes, myelocytes and metamyelocytes) > 1% indicates that a LEFT SHIFT is Present. MCH (RBC) [Entitic mass] 29.4 pg 27.0-32.0 [facility] Work Phone: [phone] Nucleated RBC/100 WBC (Bld) [Ratio] 0 % 0-5 [facility] Work Phone: [phone] MCHC Auto (RBC) [Mass/Vol]on 04-14-2022 MCHC (RBC) [Mass/Vol] 34.1 g/dL 32-36 [facility] Work Phone: [phone] Platelets bldon 04-14-2022 Platelets (Bld) [#/Vol] 276 10*3/uL 150-450 [facility] Work Phone: [phone] Basophil percentageon 2021 WBC (Bld) [#/Vol] 23.7 10*3/uL 4.4-11.0 [facility] Work Phone: [phone] Blood erythrocytes count (nu mber/volume)on 11-07-2021 RBC (Bld) [#/Vol] 3.87 10*6/uL 4.2-5.4 [facility] Work Phone: [phone] Blood hemoglobin measurement (mass/volume)on 11-07-2021 Hemoglobin (Bld) [Mass/Vol] 12.0 g/dL 12.0-15.0 [facility] Work Phone: [phone] Blood platelet mean volumeon 11-07-2021 Platelet mean volume (Bld) [Entitic vol] 12.0 fL 6.2-12.0 [facility] Work Phone: [phone] Determination of erythrocyte mean corpuscular volume (MCV)on 11-07-2021 MCV (RBC) [Entitic vol] 93.0 fL 81-99 [facility] Work Phone: Hematocrit Auto (Bld) [Volum e fraction]on 11-07-2021 Hematocrit (Bld) [Volume fraction] 36.0 % 37-47 [facility] Work Phone: Laboratory - Hematology and Cell countson 11-07-2021 Erythrocyte distribution width (RBC) [Entitic vol] 43.1 fL 35.1-43.9 [facility] Work Phone: [phone] Erythrocyte distribution width (RBC) [Ratio] 12.8 % 11.6-14.6 [facility] Work Phone: [phone] MCH (RBC) [Entitic mass] 31.0 pg 27.0-32.0 [facility] Work Phone: [phone] MCHC Auto (RBC) [Mass/Vol]on 11-07-2021 MCHC (RBC) [Mass/Vol] 33.3 g/dL 32-36 [facility] Work Phone: [phone] Platelets bldon 11-07-2021 Platelets (Bld) [#/Vol] 165 10*3/uL 150-450 [facility] Work Phone: [phone] Absolute lymphocyte counton 11-06-2021 Lymphocytes Auto (Unsp spec) [#/Vol] 1.11 10*3/uL 0.83-4.51 [facility] Work Phone: [phone] Basophil percentageon 2021 Basophils/100 WBC (Bld) 0.2 % 0-1 [facility] Work Phone: [phone] Eosinophils/100 WBC (Bld) 0.0 % 0-5 [facility] Work Phone: [phone] Neutrophils (Bld) [#/Vol] 25.1 10*3/uL 2.0-7.7 [facility] Work Phone: Neutrophils/100 WBC (Bld) 91.0 % 47-70 [facility] Work Phone: [phone] Blood lymphocytes/100 leukoc yteson 11-06-2021 Lymphocytes/100 WBC (Bld) 4.0 % 19-41 [facility] Work Phone: Blood monocytes/100 leukocyt eson 11-06-2021 Monocytes/100 WBC (Bld) 4.3 % 0-10 [facility] Work Phone: Laboratory - Hematology and Cell countson 11-06-2021 Immature granulocytes/100 WBC (Bld) 0.500 % 0.0-0.9 [facility] Work Phone: Comment on above: IG% - Immature Granu locytes (promyelocytes, myelocytes and metamyelocytes) > 1% indicates that a LEFT SHIFT is Present. Nucleated RBC/100 WBC (Bld) [Ratio] 0 % 0-5 [facility] Work Phone: Laboratory - Chemistry and C hemistry - challengeon 10-26-2021 Glucose Ql (U) Negative [facility] Work Phone: Laboratory - Urinalysison Protein Ql (U) Negative [facility] Work Phone: Basophil percentageon 2021 Basophil percentage 0 SEEN /hpf [facility] Work Phone: Bilirubin Test strip Ql (U)o n 10-17-2021 Bilirubin Ql (U) Negative Negative [facility] Work Phone: Culture, urineon 10-17-2021 Bacteria identified Cx Nom (U) Positive [facility] Work Phone: Ketones Test strip Ql (U)on 10-17-2021 Ketones Ql (U) Negative Negative [facility] Work Phone: Mucus LM Ql (Urine sed)on Mucus Ql (Urine sed) 0 SEEN /hpf [facility] Work Phone: Nitrite Test strip Ql (U)on 10-17-2021 Nitrite Ql (U) Negative Negative [facility] Work Phone: Protein Test strip Ql (U)on 10-17-2021 Protein Ql (U) Negative Negative [facility] Work Phone: Squamous epithelial cells de tection in urine sediment by light microscopyon 10-17-2021 Epithelial cells.squamous LM Ql (Urine sed) 0-5 SEEN /hpf [facility] Work Phone: Urine blood detectionon - RBC Ql (U) Negative Negative [facility] Work Phone: RBC Ql (U) 0 SEEN /hpf [facility] Work Phone: Urine clarityon 10-17-2021 Clarity (U) Clear Clear [facility] Work Phone: Urine color determinationon 10-17-2021 Color (U) Yellow Yellow [facility] Work Phone: Urine glucose detectionon Glucose Ql (U) Normal mg/dl Normal [facility] Work Phone: Urine leukocyte esterase det ection by dipstickon 10-17-2021 Leukocyte esterase Test strip Ql (U) Negative Negative [facility] Work Phone: Urine pHon 10-17-2021 pH (U) 8.0 [pH] [facility] Work Phone: Urine sediment bacteria coun t by microscopy (number/high power field)on 10-17-2021 Bacteria LM.HPF (Urine sed) [#/Area] 1 /[HPF] None Seen [facility] Work Phone: Urine specific gravity measu rementon 10-17-2021 Specific gravity (U) [Rel density] 1.010 [facility] Work Phone: Urobilinogen Auto test strip Ql (U)on 10-17-2021 Urobilinogen Ql (U) Normal mg/dl Normal [facility] Work Phone: Laboratory - Chemistry and C hemistry - challengeon 10-12-2021 Glucose Ql (U) Negative [facility] Work Phone: Laboratory - Urinalysison Protein Ql (U) Negative [facility] Work Phone: Laboratory - Chemistry and C hemistry - challengeon 10-06-2021 Glucose Ql (U) Negative [facility] Work Phone: Laboratory - Urinalysison Protein Ql (U) Negative [facility] Work Phone: No Panel Informationon 10-06 Group B Streptococcus Culture Group B Beta Streptococcus is not isolated. [facility] Work Phone: Laboratory - Chemistry and C hemistry - challengeon 09-21-2021 Glucose Ql (U) Negative [facility] Work Phone: Laboratory - Urinalysison Protein Ql (U) Negative [facility] Work Phone: Laboratory - Chemistry and C hemistry - challengeon 09-06-2021 Glucose Ql (U) Negative [facility] Work Phone: Laboratory - Urinalysison Protein Ql (U) Negative [facility] Work Phone: Laboratory - Chemistry and C hemistry - challengeon 08-23-2021 Glucose Ql (U) Negative [facility] Work Phone: Laboratory - Urinalysison Protein Ql (U) Negative [facility] Work Phone: Absolute lymphocyte counton 08-10-2021 Lymphocytes Auto (Unsp spec) [#/Vol] 1.72 10*3/uL 0.83-4.51 [facility] Work Phone: Basophil percentageon 2021 Basophils/100 WBC (Bld) 0.3 % 0-1 [facility] Work Phone: Eosinophils/100 WBC (Bld) 1.0 % 0-5 [facility] Work Phone: Neutrophils (Bld) [#/Vol] 6.9 10*3/uL 2.0-7.7 [facility] Work Phone: Neutrophils/100 WBC (Bld) 73.2 % 47-70 [facility] Work Phone: WBC (Bld) [#/Vol] 9.4 10*3/uL 4.4-11.0 [facility] Work Phone: Blood erythrocytes count (nu mber/volume)on 08-10-2021 RBC (Bld) [#/Vol] 4.08 10*6/uL 4.2-5.4 [facility] Work Phone: Blood hemoglobin measurement (mass/volume)on 08-10-2021 Hemoglobin (Bld) [Mass/Vol] 12.7 g/dL 12.0-15.0 [facility] Work Phone: Blood lymphocytes/100 leukoc yteson 08-10-2021 Lymphocytes/100 WBC (Bld) 18.2 % 19-41 [facility] Work Phone: Blood monocytes/100 leukocyt eson 08-10-2021 Monocytes/100 WBC (Bld) 6.8 % 0-10 [facility] Work Phone: Blood platelet mean volumeon 08-10-2021 Platelet mean volume (Bld) [Entitic vol] 11.7 fL 6.2-12.0 [facility] Work Phone: Determination of erythrocyte mean corpuscular volume (MCV)on 08-10-2021 MCV (RBC) [Entitic vol] 91.7 fL 81-99 [facility] Work Phone: Gestational diabetes screen 1-hour screen with 50g oral glucose loadon 08-10-2021 Glucose 1 Hr post 50 g glucose PO [Mass/Vol] 121 mg/dL 70-140 [facility] Work Phone: Hematocrit Auto (Bld) [Volum e fraction]on 08-10-2021 Hematocrit (Bld) [Volume fraction] 37.4 % 37-47 [facility] Work Phone: Laboratory - Chemistry and C hemistry - challengeon 08-10-2021 Glucose Ql (U) Negative [facility] Work Phone: Laboratory - Hematology and Cell countson 08-10-2021 Erythrocyte distribution width (RBC) [Entitic vol] 42.6 fL 35.1-43.9 [facility] Work Phone: Erythrocyte distribution width (RBC) [Ratio] 12.7 % 11.6-14.6 [facility] Work Phone: Immature granulocytes/100 WBC (Bld) 0.500 % 0.0-0.9 [facility] Work Phone: Comment on above: IG% - Immature Granu locytes (promyelocytes, myelocytes and metamyelocytes) > 1% indicates that a LEFT SHIFT is Present. MCH (RBC) [Entitic mass] 31.1 pg 27.0-32.0 [facility] Work Phone: Nucleated RBC/100 WBC (Bld) [Ratio] 0 % 0-5 [facility] Work Phone: Laboratory - Urinalysison Protein Ql (U) Negative [facility] Work Phone: MCHC Auto (RBC) [Mass/Vol]on 08-10-2021 MCHC (RBC) [Mass/Vol] 34.0 g/dL 32-36 [facility] Work Phone: Platelets bldon 08-10-2021 Platelets (Bld) [#/Vol] 185 10*3/uL 150-450 [facility] Work Phone: Laboratory - Chemistry and C hemistry - challengeon 07-14-2021 Glucose Ql (U) Negative [facility] Work Phone: Laboratory - Urinalysison Protein Ql (U) Negative [facility] Work Phone: B-[place] [address].0 m[IU]/mL High <5.0 [facility] Comment on above: Order Comment: Speci men Type: BLOOD SPECIMEN Result Comment: LETICIA TITATIVE HCG NORMAL RANGES Weeks of Gestation (Weeks Since LMP) 3 Weeks (5.8-71.2 mIU/mL) 4 Weeks (9.5-750 mIU/mL) 5 Weeks (217-7138 mIU/mL) 6 Weeks (158-32394 mIU/mL) 7 Weeks (3697-570987 mIU/mL) 8 Weeks (51836-713415 mIU/mL) 9 Weeks (69773-139784 mIU/mL) 10 Weeks (47772-822717 mIU/mL) 12 Weeks (28717-100724 mIU/mL) Referenced to 4th IS of [facility] Performed By: #### 2 1198-7 #### [facility] CLIA [id number] [address] GC/CHLAMYDIA DNA DETon 04-09 C. trachomatis DNA DEVENDRA+probe Ql (Unsp spec) Negative Normal Negative for Chlamydia trachomatis by amplificaton [facility] Comment on above: Performed By: #### G CCT #### [facility] CLIA [id number] [address] N. gonorrhoeae DNA DEVENDRA+probe Ql (Unsp spec) Negative Normal Negative for Neisseria gonorrhoeae by amplification [facility] Comment on above: Performed By: #### G CCT #### [facility] CLIA [id number] [address] RAPID BACT VAGINOSIS (AK)on 04-09-2021 Bacterial sialidase Ql (Unsp spec) Negative Normal Negative for the presence of bacterial vaginosis. [facility] Comment on above: Order Comment: Speci men Type: MICROBIAL ISOLATE Performed By: #### R APBVAG #### [facility] CLIA [id number] [address] T vaginalis Ag Genital Ql IA on 04-09-2021 T. vaginalis Ag IA Ql (Genital specimen) TRICHOMONAS PREP RESULT: Negative for Trichomonas vaginalis antigen Normal [facility] Comment on above: Performed By: #### 6 566-4 #### [facility] CLIA [id number] [address] [place] [address] [facility] TYPE AND SCREENon 04-09-2021 ABO O Normal [facility] Comment on above: Order Comment: Speci men Type: BLOOD SPECIMEN Performed By: #### T SCR #### [facility] CLIA [id number] [address] HISTORICAL AB SCR STATUS Negative Normal [facility] Comment on above: Order Comment: Speci men Type: BLOOD SPECIMEN Performed By: #### T SCR #### [facility] CLIA [id number] [address] Rh Nom (Bld) Positive Normal [facility] Comment on above: Order Comment: Speci men Type: BLOOD SPECIMEN Performed By: #### T SCR #### [facility] CLIA [id number] [address] TYPE AND SCREEN EXPIRATION 04/12/2021 23:59 Normal [facility] Comment on above: Order Comment: Speci men Type: BLOOD SPECIMEN Performed By: #### T SCR #### [facility] CLIA [id number] [address] Urinalysis complete panel (U )on 04-09-2021 Bacteria LM.HPF (Urine sed) [#/Area] Few Abnormal None Seen [facility] Comment on above: Order Comment: Speci men Type: URINE SPECIMEN Performed By: #### 2 4356-8 #### [facility] CLIA [id number] [address] [place] [address] [facility] Bilirubin Ql (U) Negative Normal Negative [facility] Comment on above: Order Comment: Speci men Type: URINE SPECIMEN Performed By: #### 2 4356-8 #### [facility] [place] [facility] CLIA [id number] [address] [place] [address] [facility] Clarity (Unsp spec) Clear Normal Clear [facility] Comment on above: Order Comment: Speci men Type: URINE SPECIMEN Performed By: #### 2 4356-8 #### [facility] [place] [facility] CLIA [id number] [address] [facility] [place] [address] [place] Color (U) Yellow Normal Yellow [facility] Comment on above: Order Comment: Speci men Type: URINE SPECIMEN Performed By: #### 2 4356-8 #### [facility] [place] [facility] CLIA [id number] [address] [facility] [address] [place] Epithelial cells LM.HPF (Urine sed) [#/Area] Few Normal [facility] Comment on above: Order Comment: Speci men Type: URINE SPECIMEN Performed By: #### 2 4356-8 #### [facility] [place] [facility] CLIA [id number] [address] [facility] [place] [address] [place] Glucose Test strip (U) [Mass/Vol] Negative Normal Negative [facility] Comment on above: Order Comment: Speci men Type: URINE SPECIMEN Performed By: #### 2 4356-8 #### [facility] [place] [facility] CLIA [id number] [address] [facility] [address] [place] Hemoglobin Ql (U) Trace Abnormal Negative [facility] Comment on above: Order Comment: Speci men Type: URINE SPECIMEN Performed By: #### 2 4356-8 #### [facility] [place] [facility] CLIA [id number] [address] [facility] [address] [place] Ketones Ql (U) Negative Normal Negative [facility] Comment on above: Order Comment: Speci men Type: URINE SPECIMEN Performed By: #### 2 4356-8 #### [facility] [place] [facility] CLIA [id number] [address] [facility] [address] [place] Leukocyte esterase Test strip Ql (U) Negative Normal Negative [facility] Comment on above: Order Comment: Speci men Type: URINE SPECIMEN Performed By: #### 2 4356-8 #### [facility] [place] [facility] CLIA [id number] [address] [place] [address] [place] Nitrite Ql (U) Negative Normal Negative [facility] Comment on above: Order Comment: Speci men Type: URINE SPECIMEN Performed By: #### 2 4356-8 #### [facility] [place] [facility] CLIA [id number] [address] [place] [address] [facility] pH (U) 7.5 [pH] Normal 5.0-8.0 [facility] Comment on above: Order Comment: Speci men Type: URINE SPECIMEN Performed By: #### 2 4356-8 #### [facility] [place] [facility] CLIA [id number] [address] [place] [address] [facility] [place] Protein (U) [Mass/Vol] Negative Normal Negative [facility] Comment on above: Order Comment: Speci men Type: URINE SPECIMEN Performed By: #### 2 4356-8 #### [facility] [place] [facility] CLIA [id number] [address] [place] [address] [place] RBC LM.HPF (Urine sed) [#/Area] 0-3 /HPF Normal 0-3 /HPF [facility] Comment on above: Order Comment: Speci men Type: URINE SPECIMEN Performed By: #### 2 4356-8 #### [facility] [place] [facility] CLIA [id number] [address] [place] [address] [facility] Specific gravity (U) [Rel density] 1.020 Normal 1.005-1.030 [facility] Comment on above: Order Comment: Speci men Type: URINE SPECIMEN Performed By: #### 2 4356-8 #### [facility] [place] [facility] CLIA [id number] [address] [place] [address] [facility] [place] Urobilinogen Ql (U) 1.0 EU/dL Normal 0.2-1.0 EU/dL [facility] Comment on above: Order Comment: Speci men Type: URINE SPECIMEN Performed By: #### 2 4356-8 #### [facility] [place] [facility] CLIA [id number] [address] [place] [address] [facility] [place] WBC LM.HPF (Urine sed) [#/Area] 0-5 /HPF Normal 0-5 /HPF [facility] Comment on above: Order Comment: Speci men Type: URINE SPECIMEN Performed By: #### 2 4356-8 #### [facility] CLIA [id number] [address] [place] [id number] [place] [address] .Urinalysis Microscopic (AO) on 12-22-2020 UA Bacteria 1+ /hpf Abnormal [facility] ([place] Comment on above: Performed By: #### U A, PREGU, UAMICAO #### [address] [address] [place] Mucous 4+ /hpf Normal [facility] [place] Comment on above: Performed By: #### U A, PREGU, UAMICAO #### [place] [address] UA RBC 0-5 Abnormal None Seen [facility] ([place] Comment on above: Performed By: #### U A, PREGU, UAMICAO #### [place] [address] UA Squam Epithelial LOADED Abnormal None Seen [facility] ([place] Comment on above: Performed By: #### U A, PREGU, UAMICAO #### [place] [address] UA WBC 0-5 Abnormal None Seen [facility] ([place] Comment on above: Performed By: #### U A, PREGU, UAMICAO #### [place] [address] PREGUon 12-22-2020 HCG ( test) Ql (U) Negative Normal [facility] ([place] Comment on above: Performed By: #### U A, PREGU, UAMICAO #### [place] [address] test (u) int Not detected Invalid Interpretation Code [facility] ([place] Comment on above: Performed By: #### U A, PREGU, UAMICAO #### [place] [address] UAon 12-22-2020 Color (U) Yellow Normal [facility] ([place] Comment on above: Performed By: #### U A, PREGU, UAMICAO #### [place] [address] Glucose (U) [Mass/Vol] Negative Normal Negative [facility] ([place] Comment on above: Performed By: #### U A, PREGU, UAMICAO #### [place] [address] Ketones Ql (U) Negative Normal Negative [facility] ([place] Comment on above: Performed By: #### U A, PREGU, UAMICAO #### [place] [address] UA Appear Cloudy Abnormal Clear [facility] ([place] Comment on above: Performed By: #### U A, PREGU, UAMICAO #### [place] [address] UA Blood Negative Normal Negative [facility] ([place] Comment on above: Performed By: #### U A, PREGU, UAMICAO #### [place] [address] UA Leuk Est Negative Normal Negative [facility] ([place] Comment on above: Performed By: #### U A, PREGU, UAMICAO #### [place] [address] UA Nitrite Negative Normal Negative [facility] ([place] Comment on above: Performed By: #### U A, PREGU, UAMICAO #### [place] [address] UA pH 6.0 Normal 5.0 - 8.0 [facility] ([place] Comment on above: Performed By: #### U A, PREGU, UAMICAO #### [place] [address] UA Protein Negative Normal Negative [facility] ([place] Comment on above: Performed By: #### U A, PREGU, UAMICAO #### [address] [address] UA Spec Grav >=1.030 Abnormal 1.015-1.025 [facility] ([place] Comment on above: Performed By: #### U Keenan PREGU UAMICAO #### [address] [address] UA Specimen Type Clean Catch Normal [facility] ([place] Comment on above: Performed By: #### U Keenan PREGU UAMICAO #### [place] [id number] UA Urobilinogen 0.2 E.U./dL Normal 0.2-1.0 [facility] ([place] Comment on above: Performed By: #### U Keenan PREGU UAMICAO #### [address] [address] Urobilinogen (U) [Mass/Vol] Negative Normal Negative [facility] ([place] Comment on above: Performed By: #### U Keenan PREGU UAMICAO #### [address] [address] COVID PCR, SCREENING CONGREG ATEon 12-19-2019 CORONAVIRUS 2019,PCR NOT DETECTED Normal Not Detected [facility] Comment on above: Result Comment: [...] patient management decisions. Fact sheet for providers: https://www.fda.gov/media/793254/download Fact sheet for patients: https://www.fda.gov/media/390869/download This test has received FDA Emergency Use Authorization (EUA) and has been verified by [facility] ([facility]). This test is only authorized for the duration of time that circumstances exist to justify the authorization of the emergency use of in vitro diagnostic tests for the detection of SARS-CoV-2 virus and/or diagnosis of COVID-19 infection under section 564(b)(1) of the Act, 21 U.S.C. 360bbb-3(b)(1), unless the authorization is terminated or revoked sooner. [facility] ([facility]) is certified under CLIA-88 as qualified to perform high complexity testing. This tests analytical performance characteristics have been determined by [facility]. Testing is performed at [facility] is located at [address] [place] [address] (CLIA License #[id number], CAP #[id number]). Performed By: #### C VCLA #### [facility] [address] [place] [address] COVID PCR, SCREENING CONGREG ATEon 12-18-2019 Lab Specimen Source Nasal, Nasopharyngeal Normal [facility] Comment on above: Performed By: #### C VCLA #### [facility] [address] [place] [address] Vital Signs Date Time Vital Sign Value Performing Clinician Tioi kelly 03-10-2025 13:06-0400 Body height 180.34 cm No Primary Care Physician [facility] 03-10-2025 13:06-0400 Body mass index (BMI) [Ratio] 37.7 kg/m2 No Primary Care Physician [facility] 03-10-2025 13:06-0400 Body weight 122.64 kg No Primary Care Physician [facility] 03-10-2025 13:06-0400 Diastolic blood pressure 80 mm[Hg] No Primary Care Physician [facility] 03-10-2025 13:06-0400 Systolic blood pressure 129 mm[Hg] No Primary Care Physician [facility] 03-07-2025 23:12-0400 Diastolic blood pressure 73 mm[Hg] No Primary Care Physician [facility] 03-07-2025 23:12-0400 Heart rate 95 /min No Primary Care Physician [facility] 03-07-2025 23:12-0400 Systolic blood pressure 134 mm[Hg] No Primary Care Physician [facility] 03-07-2025 21:50-0400 Body temperature 97.8 [degF] No Primary Care Physician [facility] 03-07-2025 21:50-0400 Respiratory rate 16 /min No Primary Care Physician [facility] 03-07-2025 21:43-0400 SaO2% (BldA) [Mass fraction] 98 % No Primary Care Physician [facility] 03-07-2025 21:37-0400 Body height 180.34 cm No Primary Care Physician [facility] 03-07-2025 21:37-0400 Body mass index (BMI) [Ratio] 38.4 kg/m2 No Primary Care Physician [facility] 03-07-2025 21:37-0400 Body weight 125 kg No Primary Care Physician [facility] 03-03-2025 15:17-0400 Body temperature 97.7 [degF] No Primary Care Physician [facility] 03-03-2025 15:17-0400 Respiratory rate 18 /min No Primary Care Physician [facility] 03-03-2025 15:17-0400 SaO2% (BldA) [Mass fraction] 97 % No Primary Care Physician [facility] 03-03-2025 15:16-0400 Diastolic blood pressure 77 mm[Hg] No Primary Care Physician [facility] 03-03-2025 15:16-0400 Heart rate 92 /min No Primary Care Physician [facility] 03-03-2025 15:16-0400 Systolic blood pressure 120 mm[Hg] No Primary Care Physician [facility] 03-03-2025 15:06-0400 Body height 180.34 cm No Primary Care Physician [facility] 03-03-2025 15:06-0400 Body mass index (BMI) [Ratio] 37.5 kg/m2 No Primary Care Physician [facility] 03-03-2025 15:06-0400 Body weight 122.01 kg No Primary Care Physician [facility] 03-03-2025 13:36-0400 Body height 177.8 cm No Primary Care Physician [facility] 03-03-2025 13:36-0400 Body mass index (BMI) [Ratio] 38.3 kg/m2 No Primary Care Physician [facility] 03-03-2025 13:36-0400 Body weight 121.13 kg No Primary Care Physician [facility] 03-03-2025 13:36-0400 Diastolic blood pressure 72 mm[Hg] No Primary Care Physician [facility] 03-03-2025 13:36-0400 Systolic blood pressure 123 mm[Hg] No Primary Care Physician [facility] 02-18-2025 14:45-0400 Body height 177.8 cm No Primary Care Physician [facility] 02-18-2025 14:45-0400 Body mass index (BMI) [Ratio] 38.7 kg/m2 No Primary Care Physician [facility] 02-18-2025 14:45-0400 Body weight 122.49 kg No Primary Care Physician [facility] 02-18-2025 14:45-0400 Diastolic blood pressure 59 mm[Hg] No Primary Care Physician [facility] 02-18-2025 14:45-0400 Systolic blood pressure 106 mm[Hg] No Primary Care Physician [facility] 02-13-2025 11:59-0400 Heart rate 86 /min No Primary Care Physician [facility] 02-13-2025 11:59-0400 SaO2% (BldA) [Mass fraction] 96 % No Primary Care Physician [facility] 02-13-2025 11:57-0400 Body temperature 97.8 [degF] No Primary Care Physician [facility] 02-13-2025 11:57-0400 Diastolic blood pressure 60 mm[Hg] No Primary Care Physician [facility] 02-13-2025 11:57-0400 Respiratory rate 16 /min No Primary Care Physician [facility] 02-13-2025 11:57-0400 Systolic blood pressure 119 mm[Hg] No Primary Care Physician [facility] 02-13-2025 11:44-0400 Body height 177.8 cm No Primary Care Physician [facility] 02-13-2025 11:44-0400 Body mass index (BMI) [Ratio] 38.7 kg/m2 No Primary Care Physician [facility] 02-13-2025 11:44-0400 Body weight 122.5 kg No Primary Care Physician [facility] 2025 10:41-0400 Body height 177.8 cm No Primary Care Physician [facility] 2025 10:41-0400 Body mass index (BMI) [Ratio] 37.9 kg/m2 No Primary Care Physician [facility] 2025 10:41-0400 Body weight 119.97 kg No Primary Care Physician [facility] 2025 10:41-0400 Diastolic blood pressure 81 mm[Hg] No Primary Care Physician [facility] 2025 10:41-0400 Systolic blood pressure 118 mm[Hg] No Primary Care Physician [facility] 01-23-2025 10:44-0400 Body height 177.8 cm No Primary Care Physician [facility] 01-23-2025 10:44-0400 Body mass index (BMI) [Ratio] 37.9 kg/m2 No Primary Care Physician [facility] 01-23-2025 10:44-0400 Body weight 119.86 kg No Primary Care Physician [facility] 01-23-2025 10:44-0400 Diastolic blood pressure 73 mm[Hg] No Primary Care Physician [facility] 01-23-2025 10:44-0400 Systolic blood pressure 112 mm[Hg] No Primary Care Physician [facility] 01-06-2025 14:59-0400 Body height 177.8 cm No Primary Care Physician [facility] 01-06-2025 14:59-0400 Body mass index (BMI) [Ratio] 37.3 kg/m2 No Primary Care Physician [facility] 01-06-2025 14:59-0400 Body weight 118.16 kg No Primary Care Physician [facility] 01-06-2025 14:59-0400 Diastolic blood pressure 73 mm[Hg] No Primary Care Physician [facility] 01-06-2025 14:59-0400 Systolic blood pressure 108 mm[Hg] No Primary Care Physician [facility] 12-25-2024 10:52-0400 Heart rate 74 /min No Primary Care Physician [facility] 12-25-2024 10:52-0400 SaO2% (BldA) [Mass fraction] 97 % No Primary Care Physician [facility] 12-25-2024 10:05-0400 Body temperature 98.2 [degF] No Primary Care Physician [facility] 12-25-2024 10:05-0400 Diastolic blood pressure 63 mm[Hg] No Primary Care Physician [facility] 12-25-2024 10:05-0400 Respiratory rate 16 /min No Primary Care Physician [facility] 12-25-2024 10:05-0400 Systolic blood pressure 118 mm[Hg] No Primary Care Physician [facility] 12-25-2024 09:54-0400 Body height 177.8 cm No Primary Care Physician [facility] 12-25-2024 09:54-0400 Body mass index (BMI) [Ratio] 37.9 kg/m2 No Primary Care Physician [facility] 12-25-2024 09:54-0400 Body weight 120 kg No Primary Care Physician [facility] 12-25-2024 08:58-0400 Body height 180.34 cm No Primary Care Physician [facility] 12-25-2024 08:57-0400 Body mass index (BMI) [Ratio] 36.1 kg/m2 No Primary Care Physician [facility] 12-25-2024 08:57-0400 Body weight 117.59 kg No Primary Care Physician [facility] 12-25-2024 08:57-0400 Diastolic blood pressure 77 mm[Hg] No Primary Care Physician [facility] 12-25-2024 08:57-0400 Systolic blood pressure 117 mm[Hg] No Primary Care Physician [facility] 12-20-2024 08:29-0400 Body height 180.34 cm No Primary Care Physician [facility] 12-20-2024 08:29-0400 Body mass index (BMI) [Ratio] 36.5 kg/m2 No Primary Care Physician [facility] 12-20-2024 08:29-0400 Body weight 118.84 kg No Primary Care Physician [facility] 12-20-2024 08:29-0400 Diastolic blood pressure 78 mm[Hg] No Primary Care Physician [facility] 12-20-2024 08:29-0400 Systolic blood pressure 114 mm[Hg] No Primary Care Physician [facility] 11-21-2024 10:42-0400 Body height 180.34 cm No Primary Care Physician [facility] 11-21-2024 10:42-0400 Body mass index (BMI) [Ratio] 36.1 kg/m2 No Primary Care Physician [facility] 11-21-2024 10:42-0400 Body weight 117.48 kg No Primary Care Physician [facility] 11-21-2024 10:42-0400 Diastolic blood pressure 68 mm[Hg] No Primary Care Physician [facility] 11-21-2024 10:42-0400 Systolic blood pressure 113 mm[Hg] No Primary Care Physician [facility] 10-25-2024 18:55-0400 Body height 180.34 cm No Primary Care Physician [facility] 10-25-2024 18:55-0400 Body mass index (BMI) [Ratio] 36.1 kg/m2 No Primary Care Physician [facility] 10-25-2024 18:55-0400 Body temperature 97.9 [degF] No Primary Care Physician [facility] 10-25-2024 18:55-0400 Body weight 117.66 kg No Primary Care Physician [facility] 10-25-2024 18:55-0400 Diastolic blood pressure 79 mm[Hg] No Primary Care Physician [facility] 10-25-2024 18:55-0400 Heart rate 102 /min No Primary Care Physician [facility] 10-25-2024 18:55-0400 Respiratory rate 19 /min No Primary Care Physician [facility] 10-25-2024 18:55-0400 SaO2% (BldA) [Mass fraction] 98 % No Primary Care Physician [facility] 10-25-2024 18:55-0400 Systolic blood pressure 136 mm[Hg] No Primary Care Physician [facility] 10-21-2024 08:39-0400 Body mass index (BMI) [Ratio] 36 kg/m2 No Primary Care Physician [facility] 10-21-2024 08:39-0400 Body weight 117.08 kg No Primary Care Physician [facility] 10-21-2024 08:39-0400 Diastolic blood pressure 71 mm[Hg] No Primary Care Physician [facility] 10-21-2024 08:39-0400 Systolic blood pressure 115 mm[Hg] No Primary Care Physician [facility] 09-26-2024 13:48-0400 Body height 180.34 cm No Primary Care Physician [facility] 09-26-2024 13:47-0400 Body mass index (BMI) [Ratio] 35.9 kg/m2 No Primary Care Physician [facility] 09-26-2024 13:47-0400 Body weight 117.02 kg No Primary Care Physician [facility] 09-26-2024 13:47-0400 Diastolic blood pressure 73 mm[Hg] No Primary Care Physician [facility] 09-26-2024 13:47-0400 Systolic blood pressure 123 mm[Hg] No Primary Care Physician [facility] 09-04-2024 10:55-0400 Body height 180.34 cm No Primary Care Physician [facility] 09-04-2024 10:54-0400 Body mass index (BMI) [Ratio] 35.6 kg/m2 No Primary Care Physician [facility] 09-04-2024 10:54-0400 Body weight 115.77 kg No Primary Care Physician [facility] 09-04-2024 10:54-0400 Diastolic blood pressure 73 mm[Hg] No Primary Care Physician [facility] 09-04-2024 10:54-0400 Systolic blood pressure 113 mm[Hg] No Primary Care Physician [facility] 08-30-2024 02:37-0500 Body temperature 98 [degF] No Primary Care Physician [facility] 08-30-2024 02:37-0500 Diastolic blood pressure 74 mm[Hg] No Primary Care Physician [facility] 08-30-2024 02:37-0500 Heart rate 73 /min No Primary Care Physician [facility] 08-30-2024 02:37-0500 Respiratory rate 18 /min No Primary Care Physician [facility] 08-30-2024 02:37-0500 SaO2% (BldA) [Mass fraction] 100 % No Primary Care Physician [facility] 08-30-2024 02:37-0500 Systolic blood pressure 130 mm[Hg] No Primary Care Physician [facility] 08-30-2024 00:40-0500 Body height 180.34 cm No Primary Care Physician [facility] 08-30-2024 00:40-0500 Body mass index (BMI) [Ratio] 16.5 kg/m2 No Primary Care Physician [facility] 08-30-2024 00:40-0500 Body weight 53.72 kg No Primary Care Physician [facility] 08-29-2024 11:11-0500 Body mass index (BMI) [Ratio] 37.2 kg/m2 No Primary Care Physician [facility] 08-29-2024 11:11-0500 Body weight 117.65 kg No Primary Care Physician [facility] 08-29-2024 11:11-0500 Diastolic blood pressure 78 mm[Hg] No Primary Care Physician [facility] 08-29-2024 11:11-0500 Systolic blood pressure 121 mm[Hg] No Primary Care Physician [facility] 06-16-2024 21:22-0500 Body temperature 98 [degF] No Primary Care Physician [facility] 06-16-2024 21:22-0500 Diastolic blood pressure 84 mm[Hg] No Primary Care Physician [facility] 06-16-2024 21:22-0500 Heart rate 80 /min No Primary Care Physician [facility] 06-16-2024 21:22-0500 Respiratory rate 16 /min No Primary Care Physician [facility] 06-16-2024 21:22-0500 SaO2% (BldA) [Mass fraction] 98 % No Primary Care Physician [facility] 06-16-2024 21:22-0500 Systolic blood pressure 130 mm[Hg] No Primary Care Physician [facility] 06-16-2024 20:27-0500 Body mass index (BMI) [Ratio] 36.8 kg/m2 No Primary Care Physician [facility] 06-16-2024 20:27-0500 Body weight 116.66 kg No Primary Care Physician [facility] 08-15-2023 19:40-0500 Body temperature 97.2 [degF] [facility] 08-15-2023 19:40-0500 Diastolic blood pressure 71 mm[Hg] [facility] 08-15-2023 19:40-0500 Heart rate 62 /min [facility] 08-15-2023 19:40-0500 Respiratory rate 12 /min [facility] 08-15-2023 19:40-0500 SaO2% (BldA) [Mass fraction] 99 % [facility] 08-15-2023 19:40-0500 Systolic blood pressure 122 mm[Hg] [facility] 08-15-2023 17:35-0500 Body height 180.34 cm [facility] 08-15-2023 17:35-0500 Body mass index (BMI) [Ratio] 38.5 kg/m2 [facility] 08-15-2023 17:35-0500 Body weight 125.24 kg [facility] 04-14-2022 16:16-0400 Body height 180.34 cm No Primary Care Physician [facility] Work Phone: 04-14-2022 16:16-0400 Body mass index (BMI) [Ratio] 30.7 kg/m2 No Primary Care Physician [facility] Work Phone: 04-14-2022 16:16-0400 Body temperature 98.1 [degF] No Primary Care Physician [facility] Work Phone: 04-14-2022 16:16-0400 Body weight 99.79 kg No Primary Care Physician [facility] Work Phone: 04-14-2022 16:16-0400 Diastolic blood pressure 90 mm[Hg] No Primary Care Physician [facility] Work Phone: 04-14-2022 16:16-0400 Heart rate 109 /min No Primary Care Physician [facility] Work Phone: 04-14-2022 16:16-0400 Respiratory rate 18 /min No Primary Care Physician [facility] Work Phone: 04-14-2022 16:16-0400 SaO2% (BldA) [Mass fraction] 97 % No Primary Care Physician [facility] Work Phone: 04-14-2022 16:16-0400 Systolic blood pressure 140 mm[Hg] No Primary Care Physician [facility] Work Phone: 12-21-2021 14:42-0400 Body mass index (BMI) [Percentile] Per age and sex 96.7 % No Primary Care Physician [facility] Work Phone: 12-21-2021 14:42-0400 Body mass index (BMI) [Ratio] 34.2 kg/m2 No Primary Care Physician [facility] Work Phone: 12-21-2021 14:42-0400 Body weight 111.24 kg No Primary Care Physician [facility] Work Phone: 12-21-2021 14:42-0400 Diastolic blood pressure 70 mm[Hg] No Primary Care Physician [facility] Work Phone: 12-21-2021 14:42-0400 Systolic blood pressure 110 mm[Hg] No Primary Care Physician [facility] Work Phone: 11-08-2021 12:23-0400 Body temperature 97.8 [degF] DO [facility] Work Phone: 11-08-2021 12:23-0400 Diastolic blood pressure 86 mm[Hg] DO [facility] Work Phone: 11-08-2021 12:23-0400 Heart rate 106 /min DO [facility] Work Phone: 11-08-2021 12:23-0400 Respiratory rate 16 /min DO [facility] Work Phone: 11-08-2021 12:23-0400 SaO2% (BldA) [Mass fraction] 100 % DO [facility] Work Phone: 11-08-2021 12:23-0400 Systolic blood pressure 141 mm[Hg] DO [facility] Work Phone: 11-04-2021 19:28-0400 Body height 180.34 cm DO [facility] Work Phone: 11-04-2021 19:28-0400 Body mass index (BMI) [Ratio] 37.8 kg/m2 DO [facility] Work Phone: 11-04-2021 19:28-0400 Body weight 123.03 kg DO [facility] Work Phone: 10-26-2021 13:44-0400 Body mass index (BMI) [Ratio] 43 kg/m2 DO [facility] Work Phone: 10-26-2021 13:44-0400 Body weight 120.82 kg DO [facility] Work Phone: 10-26-2021 13:44-0400 Diastolic blood pressure 78 mm[Hg] DO [facility] Work Phone: 10-26-2021 13:44-0400 Systolic blood pressure 104 mm[Hg] DO [facility] Work Phone: 10-18-2021 13:13-0400 Body mass index (BMI) [Ratio] 42.3 kg/m2 DO [facility] Work Phone: 10-18-2021 13:13-0400 Body weight 118.84 kg DO [facility] Work Phone: 10-18-2021 13:13-0400 Diastolic blood pressure 82 mm[Hg] DO [facility] Work Phone: 10-18-2021 13:13-0400 Systolic blood pressure 132 mm[Hg] DO [facility] Work Phone: 10-17-2021 18:45-0400 Body temperature 98 [degF] DO [facility] Work Phone: 10-17-2021 18:43-0400 Diastolic blood pressure 71 mm[Hg] DO [facility] Work Phone: 10-17-2021 18:43-0400 Heart rate 83 /min DO [facility] Work Phone: 10-17-2021 18:43-0400 Systolic blood pressure 119 mm[Hg] DO [facility] Work Phone: 10-17-2021 16:28-0400 Diastolic blood pressure 68 mm[Hg] DO [facility] Work Phone: 10-17-2021 16:28-0400 Heart rate 93 /min DO [facility] Work Phone: 10-17-2021 16:28-0400 Systolic blood pressure 98 mm[Hg] DO [facility] Work Phone: 10-17-2021 15:29-0400 Body height 180.34 cm DO [facility] Work Phone: 10-17-2021 15:29-0400 Body mass index (BMI) [Ratio] 36.3 kg/m2 DO [facility] Work Phone: 10-17-2021 15:29-0400 Body weight 118 kg DO [facility] Work Phone: 10-17-2021 15:25-0400 Body temperature 96.9 [degF] DO [facility] Work Phone: 10-12-2021 13:39-0400 Body mass index (BMI) [Ratio] 43 kg/m2 DO [facility] Work Phone: 10-12-2021 13:39-0400 Body weight 120.88 kg DO [facility] Work Phone: 10-12-2021 13:39-0400 Diastolic blood pressure 70 mm[Hg] DO [facility] Work Phone: 10-12-2021 13:39-0400 Systolic blood pressure 110 mm[Hg] DO [facility] Work Phone: 10-06-2021 11:18-0400 Body mass index (BMI) [Ratio] 42.2 kg/m2 DO [facility] Work Phone: 10-06-2021 11:18-0400 Body weight 118.55 kg DO [facility] Work Phone: 10-06-2021 11:18-0400 Diastolic blood pressure 70 mm[Hg] DO [facility] Work Phone: 10-06-2021 11:18-0400 Systolic blood pressure 104 mm[Hg] DO [facility] Work Phone: 09-21-2021 14:02-0400 Body mass index (BMI) [Ratio] 42.2 kg/m2 DO [facility] Work Phone: 09-21-2021 14:02-0400 Body weight 118.61 kg DO [facility] Work Phone: 09-21-2021 14:02-0400 Diastolic blood pressure 88 mm[Hg] DO [facility] Work Phone: 09-21-2021 14:02-0400 Systolic blood pressure 118 mm[Hg] DO [facility] Work Phone: 09-06-2021 13:02-0400 Body mass index (BMI) [Ratio] 41.3 kg/m2 DO [facility] Work Phone: 09-06-2021 13:02-0400 Body weight 116.11 kg DO [facility] Work Phone: 09-06-2021 13:02-0400 Diastolic blood pressure 78 mm[Hg] DO [facility] Work Phone: 09-06-2021 13:02-0400 Systolic blood pressure 112 mm[Hg] DO [facility] Work Phone: 08-23-2021 11:57-0500 Body mass index (BMI) [Ratio] 41 kg/m2 DO [facility] Work Phone: 08-23-2021 11:57-0500 Body weight 115.21 kg DO [facility] Work Phone: 08-23-2021 11:57-0500 Diastolic blood pressure 74 mm[Hg] DO [facility] Work Phone: 08-23-2021 11:57-0500 Systolic blood pressure 113 mm[Hg] DO [facility] Work Phone: 08-10-2021 08:08-0500 Body mass index (BMI) [Ratio] 40.1 kg/m2 DO [facility] Work Phone: 08-10-2021 08:08-0500 Body weight 112.71 kg DO [facility] Work Phone: 08-10-2021 08:08-0500 Diastolic blood pressure 74 mm[Hg] DO [facility] Work Phone: 08-10-2021 08:08-0500 Systolic blood pressure 110 mm[Hg] DO [facility] Work Phone: 07-14-2021 10:06-0500 Body mass index (BMI) [Ratio] 39.4 kg/m2 DO [facility] Work Phone: 07-14-2021 10:06-0500 Body weight 110.67 kg DO [facility] Work Phone: 07-14-2021 10:06-0500 Diastolic blood pressure 82 mm[Hg] DO [facility] Work Phone: 07-14-2021 10:06-0500 Systolic blood pressure 118 mm[Hg] DO [facility] Work Phone: Encounters Encounter Date Encounter Type Care Provider Facility Start: 03-24-2025 ambulatory No Primary Car e Physician Facility:[facility] Start: 03-17-2025 ambulatory Renate Callahan lity:[facility] Start: 03-10-2025 End: 03-10-[address] Renate Handley MD -[facility] Work Phone: Start: 03-10-2025 End: 03-10-2025 ambulatory No Primary Care Physician -[facility] Start: 03-08-2025 ambulatory Renate Callahan lity:[facility] Start: 03-08-2025 Non-patient / Non-visit Dr. Renate Handley MD -[facility] Start: 03-07-2025 End: 03-08-2025 ambulatory No [facility] Start: 03-07-2025 End: 03-08-[address] Renate Handley MD -[facility] Work Phone: Start: 03-03-2025 ambulatory No Primary Car e Physician Facility:[facility] Start: 03-03-2025 Non-patient / Non-visit Dr. Renate Handley MD -[facility] Start: 03-03-2025 End: 03-03-2025 ambulatory No [facility] Start: 03-03-2025 End: 03-03-[address] Renate Handley MD -[facility] Work Phone: Start: 03-03-2025 End: 03-03-[address] Renate Handley MD -[facility] Work Phone: Start: 03-03-2025 End: 03-03-2025 ambulatory No Primary Care Physician [facility] Start: 02-18-2025 End: 02-18-[address] Renate Handley MD -[facility] Work Phone: Start: 02-18-2025 End: 02-18-2025 ambulatory No Primary Care Physician -[facility] Start: 02-13-2025 ambulatory Renate Callahan lity:[facility] Start: 02-13-2025 Non-patient / Non-visit Dr. Renate Handley MD -[facility] Start: 02-13-2025 End: 02-13-2025 ambulatory No Primary Care Physician -[facility] Start: 02-13-2025 End: 02-13-[address] Renate Handley MD -[facility] Work Phone: Start: 02-07-2025 End: 02-07-2025 ambulatory No Primary Care Physician -[facility] Start: 02-07-2025 End: 02-07-[address] Renate Handley MD -[facility] Work Phone: Start: 02-07-2025 End: 02-07-2025 ambulatory No Primary Care Physician Facility:[facility] Start: 2025 End: [address] Renate Handley MD -[facility] Work Phone: Start: 2025 End: 2025 ambulatory No Primary Care Physician -[facility] Start: 01-23-2025 End: 01-23-[address] Renate Handley MD -[facility] Work Phone: Start: 01-23-2025 End: 01-23-2025 ambulatory No Primary Care Physician -[facility] Start: 01-06-2025 End: 01-06-[address] Renate Handley MD -[facility] Work Phone: Start: 01-06-2025 End: 01-06-2025 ambulatory No Primary Care Physician -[facility] Start: 01-06-2025 End: 01-06-2025 ambulatory No Primary Care Physician Facility:[facility] Start: 12-25-2024 ambulatory No Primary Car e Physician Facility:[facility] Start: 12-25-2024 Non-patient / Non-visit Dr. Raven Modi DO -[facility] Start: 12-25-2024 End: 12-25-2024 ambulatory No Primary Care Physician -Laboratory Specimen Start: 12-25-2024 End: 12-25-[address] Raven Modi DO -Labor[facility] Spec[facility] Work Phone: Start: 12-25-2024 End: 12-25-[address] Raven Modi DO -[facility] Work Phone: Start: 12-25-2024 End: 12-25-2024 ambulatory No Primary Care Physician -[facility] Start: 12-25-2024 End: 12-25-2024 ambulatory No Primary Care Physician Facility:[facility] Start: 12-20-2024 End: 12-20-2024 Patient encounter procedure Dariana Eli CNM -[facility] Work Phone: Start: 12-20-2024 End: 12-20-2024 ambulatory No Primary Care Physician [facility] Work Phone: Start: 11-21-2024 End: 11-21-2024 ambulatory No Primary Care Physician [facility] Work Phone: Start: 11-21-2024 End: 11-21-[address] Renate Handley MD -[facility] Work Phone: Start: 11-21-2024 End: 11-21-[address] Renate Handley MD -[facility] Work Phone: Start: 11-21-2024 End: 11-21-2024 ambulatory No Primary Care Physician [facility] Work Phone: Start: 11-21-2024 End: 11-21-2024 ambulatory Renate Handley Facility:[facility] Start: 11-12-2024 End: 11-12-2024 ambulatory No Primary Care Physician [facility] Work Phone: Start: 11-12-2024 End: 11-12-2024 Patient encounter procedure Geneva SANCHEZ -[facility] Work Phone: Start: 11-12-2024 End: 11-12-2024 ambulatory No Primary Care Physician Facility:[facility] Start: 10-25-2024 End: 10-25-2024 Emergency department patient visit Dr. Heraclio Ornelas DO -Emergency Department Work Phone: Start: 10-21-2024 End: 10-21-2024 Patient encounter procedure Geneva SANCHEZ -[facility] Work Phone: Start: 10-21-2024 End: 10-21-2024 ambulatory No Primary Care Physician Facility:[facility] Start: 10-02-2024 End: 10-02-2024 ambulatory No Primary Care Physician [facility] Work Phone: Start: 10-02-2024 End: 10-02-[address] [facility] Start: 10-02-2024 End: 10-02-2024 ambulatory No Primary Care Physician Facility:[facility] Start: 09-26-2024 End: 09-26-[address] Raven Modi DO -[facility] Work Phone: Start: 09-26-2024 End: 09-26-2024 ambulatory No Primary Care Physician Facility:[facility] Start: 09-04-2024 End: 09-04-[address] Raven Modi DO -[facility] Work Phone: Start: 09-04-2024 End: 09-04-2024 ambulatory No Primary Care Physician Facility:[facility] Start: 08-30-2024 End: 08-30-2024 Emergency department patient visit No Primary Care Physician -Emergency Department Work Phone: Start: 08-29-2024 End: 08-29-2024 Patient encounter procedure Shell Curry CNM -[facility] Work Phone: Start: 08-29-2024 End: 08-29-2024 ambulatory No Primary Care Physician [facility] Work Phone: Start: 08-29-2024 End: 08-29-2024 ambulatory No Primary Care Physician Facility:[facility] Start: 08-09-2024 Non-patient / Non-visit Adri Kimble RN -[facility] Work Phone: Start: 08-09-2024 ambulatory No Primary Car e Physician Facility:[facility] Start: 06-16-2024 End: 06-16-2024 Emergency department patient visit Dr. Franco Ortiz DO -Emergency Department Work Phone: Start: 08-15-2023 End: 08-15-2023 Emergency department patient visit [facility]-Emergency Department Work Phone: Start: 04-14-2022 End: 04-14-2022 Emergency department patient visit No Primary Care Physician [facility]-Emergency Department Start: 12-21-2021 End: 12-21-2021 Patient encounter procedure No Primary Care Physician [facility] Start: 11-08-2021 Non-patient / Non-visit DO [facility] Start: 11-07-2021 Non-patient / Non-visit DO [facility] Start: 11-06-2021 Non-patient / Non-visit DO [facility] Start: 11-05-2021 Non-patient / Non-visit DO [facility] Start: 11-04-2021 Non-patient / Non-visit DO [facility] Start: 11-04-2021 End: 11-08-2021 Evaluation and management of inpatient DO [facility] Start: 10-26-2021 End: 10-26-2021 Patient encounter procedure DO [facility] Start: 10-18-2021 End: 10-18-2021 Patient encounter procedure DO [facility] Start: 10-17-2021 Non-patient / Non-visit DO [facility] Start: 10-17-2021 End: 10-17-2021 Patient encounter procedure DO [facility] Start: 10-12-2021 End: 10-12-2021 Patient encounter procedure DO [facility] Start: 10-06-2021 End: 10-06-2021 Patient encounter procedure DO [facility] Start: 10-06-2021 End: 10-06-2021 Patient encounter procedure DO [facility]-Laboratory, Specimen Start: 09-27-2021 End: 09-27-2021 Patient encounter procedure DO [facility] Start: 09-21-2021 End: 09-21-2021 Patient encounter procedure DO [facility] Start: 09-06-2021 End: 09-06-2021 Patient encounter procedure DO [facility] Start: 08-23-2021 End: 08-23-2021 Patient encounter procedure DO [facility] Start: 08-10-2021 End: 08-10-2021 Patient encounter procedure DO [facility]Laboratory, [facility] Start: 07-14-2021 End: 07-14-2021 Patient encounter procedure DO [facility] Procedures Date Procedure Procedure Detail Performing Clinician Start: 03-07-2025 Urnls dip stick/tabl et reagent auto microscopy No Primary Care Physician Start: 03-03-2025 Ultrasonography for biophysical profile without non-stress testing No Primary Care Physician Start: 03-03-2025 End: 03-03-2025 Bacterial nucleic acid assay No Primary Care Physician Start: 03-03-2025 Beta-hemolytic Streptococcus culture No Primary Care Physician Start: 02-13-2025 Urine [...] HCV Quant by PCR testing - HCVPCR #[id number] Non Reactive: < 0.8 Equivocal: >/= 0.8 [...] MALIGNANCY.THIS SPECIMEN WAS RESCREENED PART OF OUR MICROFILM MACHINE OPERATOR PROGRAM. This liquid based Th inPrep(R) pap test was screened withthe use of an image guided system. The HPV DNA reflex c artemio were not met with this specimenresult therefore, no HPV testing was performed.Performed at: [address] [place] [id number] Director: Sheryl Melendez MD, Phone: [phone] Start: 11-04-2021 End: 11-04-2021 Viral antigen assay DO [facility] Start: 10-17-2021 Urine culture DO [facility] Start: 10-06-2021 Group B Streptococcu s Culture DO [facility] Start: 09-27-2021 Ultrasound scan for growth DO [facility] Start: 04-09-2021 Antibody screen Comment on above: Order Comment: Speci men Type: BLOOD SPECIMEN Performed By: #### T SCR #### [facility] BLOOD BANK [facility] [id number] [address] OF [facility] H/O: section History of delivery, currently [...] section History of delivery, currently 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 [...] Treatment Date Care Activity Detail Author Start: 03-08-2025 Patient discharge [facility] Start: 03-07-2025 Obstetric monitoring [facility] Start: 03-07-2025 Vital signs measurements [facility] Start: 03-07-2025 End: 03-07-2025 [facility] Start: 03-07-2025 End: 03-07-2025 Nonstress test [facility] Start: 03-07-2025 Obstetric monitoring [facility] Start: 03-07-2025 Vital signs measurements [facility] Start: 03-07-2025 [facility] Start: 03-07-2025 Bacteria identified in Urine by Culture Urine Culture [facility] Start: 03-07-2025 Urine culture [facility] Start: 03-03-2025 Nonstress test [facility] Start: 03-03-2025 Obstetric monitoring [facility] Start: 03-03-2025 Vital signs measurements [facility] Start: 03-03-2025 End: 03-03-2025 [facility] Start: 03-03-2025 Group B Streptococcus Culture Group B Streptococcus Culture [facility] Start: 03-03-2025 Patient discharge [facility] Start: 02-13-2025 Bacteria identified in Urine by Culture Urine Culture [facility] Start: 02-13-2025 End: 02-13-2025 [facility] Start: 02-13-2025 Nonstress test [facility] Start: 02-13-2025 Obstetric monitoring [facility] Start: 02-13-2025 Vital signs measurements [facility] Start: 02-13-2025 Patient discharge [facility] Start: 01-06-2025 CBC W Auto Differential panel - Blood [facility] Start: 01-06-2025 Measurement of glucose 2 hours after glucose challenge for glucose tolerance test [facility] Start: 01-06-2025 Serologic test for syphilis [facility] Start: 01-06-2025 [facility] Start: 12-25-2024 Bacteria identified in Urine by Culture Urine Culture [facility] Start: 12-25-2024 Cul bact xcpt urine blood/stool aerobic isol CULTURE OTHR SPECIMN AEROBIC [facility] Start: 12-25-2024 Culture bacterial quanttative colony count urine URINE CULTURE/COLONY COUNT [facility] Start: 12-25-2024 Genital Culture Genital Culture [facility] Start: 12-25-2024 Microscopic observation [Identifier] in Unspecified specimen by Gram stain [facility] Start: 12-25-2024 Smr prim src gram/giemsa stain bct fungi/cell SMEAR GRAM STAIN [facility] Start: 12-25-2024 Source specific culture [facility] Start: 12-25-2024 [facility] Start: 12-25-2024 Nonstress test [facility] Start: 12-25-2024 Obstetric monitoring [facility] Start: 12-25-2024 [facility] Start: 12-25-2024 Vital signs measurements [facility] Start: 12-25-2024 Patient discharge [facility] Start: 10-25-2024 [facility] Start: 08-30-2024 Bacteria identified in Urine by Culture Urine Culture [facility] Start: 08-30-2024 [facility] Start: 08-30-2024 [facility] Start: 08-29-2024 Bacteria identified in Urine by Culture Urine Culture [facility] Start: 08-29-2024 Chlamydia deoxyribonucleic acid detection [facility] Start: 08-29-2024 Liquid based cervical cytology screening [facility] Start: 08-29-2024 [facility] Start: 06-16-2024 [facility] Start: 08-15-2023 [facility] Start: 10-17-2021 Bacteria identified in Urine by Culture Urine Culture [facility] Work Phone: Beta-hemolytic Streptococcus culture [facility] Bilirubin measuremen t, urine [facility] CBC W Auto Different ial panel - Blood [facility] Erythrocyte mean corpuscular volume determination [facility] Genital microscopy, culture and sensitivities [facility] Hematocrit [Volume Fraction] of Blood [facility] Hemoglobin [Mass/vol ume] in Blood [facility] Hemoglobin [Presence ] in Urine [facility] Leukocytes [#/volume ] in Blood [facility] Mean corpuscular hem oglobin concentration determination [facility] Mean corpuscular hem oglobin determination [facility] Measurement of gluco se 2 hours after glucose challenge for glucose tolerance test [facility] Measurement of keton es in urine using dipstick [facility] Microscopic urinalysis [facility] Neisseria gonorrhoea e rRNA [Presence] in Unspecified specimen by DEVENDRA with probe detection [facility] Neutrophil count [facility] Neutrophil percent differential count [facility] Organism count, micr oscopic method [facility] Path report.final Dx Spec [facility] Work Phone: Patient referral [facility] Work Phone: PCR test for Chlamyd ia trachomatis [facility] pH of Urine [facility] Platelets [#/volume] in Blood [facility] Red blood cell count [facility] Red cell distributio n width determination [facility] Serologic test for syphilis [facility] [facility] Specific gravity of Urine [facility] Streptococcus agalac tiae [Presence] in Unspecified specimen by Organism specific culture [facility] Urine culture [facility] Urine culture [facility] Urine culture [facility] Urine culture [facility] Urine dipstick for glucose [facility] Urine dipstick for leukocyte esterase [facility] Urine dipstick for nitrite [facility] Urine dipstick for protein [facility] Urine examination [facility] Urine microscopy: epithelial cells [facility] Urine microscopy: red cells [facility] Urobilinogen [Presen ce] in Urine [facility] White blood cell count [facility] Immunizations Immunization Date Immunization Notes Care Provider Fa moe 02-18-2025 tetanus toxoid, redu octavio diphtheria toxoid, and acellular pertussis vaccine, adsorbed No Primary Care Physician [facility] 06-16-2024 tetanus toxoid, redu octavio diphtheria toxoid, and acellular pertussis vaccine, adsorbed No Primary Care Physician [facility] 08-23-2021 tetanus toxoid, redu octavio diphtheria toxoid, and acellular pertussis vaccine, adsorbed DO [facility] 08-23-2021 diphtheria, tetanus toxoids and acellular pertussis vaccine, unspecified formulation DO [facility] Work Phone: Payers Date Payer Category Payer Unknown [id number] 2024 Self-pay [id number] 2024 Unknown [id number] Unknown [id number] Unknown [id number] Unknown [id number] 2.16.8 40.1.164410.3.579.2.462 Unknown [id number] 2.16.8 40.1.374313.3.579.2.462 Unknown [id number] 2.16.8 40.1.758061.3.579.2.462 Unknown [id number] 2.16.8 40.1.669066.3.579.2.462 Unknown [id number] 2.16.8 40.1.081015.3.579.2.462 Unknown [id number] 2.16.8 40.1.986484.3.579.2.462 Unknown [id number] 2.16.8 40.1.498442.3.579.2.462 Unknown [id number] 2.16.8 40.1.708528.3.579.2.462 Unknown [id number] 2.16.8 40.1.794123.3.579.2.462 Unknown [id number] 2.16.8 40.1.584031.3.579.2.462 Unknown [id number] 2.16.8 40.1.342280.3.579.2.462 Unknown [id number] 2.16.8 40.1.811531.3.579.2.462 Unknown [id number] 2.16.8 40.1.990538.3.579.2.462 Unknown [id number] 2.16.8 40.1.779687.3.579.2.462 Unknown [id number] 2.16.8 40.1.205623.3.579.2.462 Unknown [id number] 2.16.8 40.1.092686.3.579.2.462 Unknown [id number] 2.16.8 40.1.275175.3.579.2.462 Unknown [id number] 2.16.8 40.1.451578.3.579.2.462 Unknown [id number] 2.16.8 40.1.003683.3.579.2.462 Unknown [id number] 2.16.8 40.1.955004.3.579.2.462 Unknown [id number] 2.16.8 40.1.912144.3.579.2.462 Unknown [id number] 2.16.8 40.1.889999.3.579.2.462 Unknown [id number] 2.16.8 40.1.674648.3.579.2.462 Unknown [id number] 2.16.8 40.1.719928.3.579.2.462 Unknown [id number] 2.16.8 40.1.693827.3.579.2.462 Unknown [id number] 2.16.8 40.1.399307.3.579.2.462 Unknown [id number] 2.16.8 40.1.938321.3.579.2.462 Unknown [id number] 2.16.8 40.1.300936.3.579.2.462 Unknown [id number] 2.16.8 40.1.064893.3.579.2.462 Unknown [id number] 2.16.8 40.1.063447.3.579.2.462 Unknown [id number] 2.16.8 40.1.422972.3.579.2.462 Unknown [id number] 2.16.8 40.1.417289.3.579.2.462 Unknown [id number] 2.16.8 40.1.161124.3.579.2.462 Unknown [id number] 2.16.8 40.1.744100.3.579.2.462 Social History Date Type Detail Facility Start: 10-12-2021 End: 08-15-2023 Tobacco smoking status HIIS Unknown if ever smoked [facility] Start: 2000 Sex Assigned At Female W [facility] Start: 08-30-2024 End: 10-25-2024 Tobacco smoking status NHIS Ex-smoker (finding) [facility] Start: 08-30-2024 End: 10-07-2024 Sex Female (finding) [facility] Mental Status Date Assessment Result Facility 11-07-2021 Cognitive function Level Of Cons ciousness Appropriate [facility] Work Phone: 11-06-2021 Cognitive function Arousable To Voice/Nam e [facility] Work Phone: Clinical Notes 08-29-2024 to 03-10-2025 Note Date & Type Note Facility 03-10-2025 Progress note [facility] 03-03-2025 Radiology Diagnostic study note [facility] Imaging Services [address] [place] [address] OB Biophysical Prof W/O YONATHAN MR#: [id number] Acct: [id number] Name: QUAN RODGERS KELTON Rep #: [id number] : 2000 F 25 From: Jo Woods MD PCP: Care Physician,No Primary Status: REG CLI Study:OB Biophysical Prof W/O NST Date of Exa m: 03/03/25 Exam# [id number] Ordering Dr: Renate La MD PROCEDURE: OB [...] score of 8 of 8. Reading [id number] CC: Dr. Renate Handley MD; No Primary Care Physician ~ Casino Investigator: Signed [facility] 02-18-2025 Progress note [facility] 02-18-2025 Progress note Note Date/Time February 18, 2025 2:59pm [facility] [address] [place] [address], [address] [place] [address] OFFICE VISIT Date of Service: 02/18/25 MR#: [id number] Acct: [id number] Name: QUAN RODGERS KELTON Rep #: [id number] : 2000 Provider: Dr. 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 ?flutt ers. Reviewed nl PN labs. "Girl" Unable to void this appt. Nausea persists, [...] Lf/0.5 mL intramuscular syringe Performing Provider: Renate Handley MD Performing Location: [facility] Administered by: Geneva Long on 02/18/25 14:56 Dose Route Admin Location Dispensed Lot Number Expiration Date [facility] Laboratory Associate 0.5 mL IM Left Deltoid 0.5 mL [id number] 02/23/27 94964-934-45 SANOF [employer] VIS Given Date VIS Provided [...] NS Z23 - Encounter for immunization 02/18/25 6664 <Electronically signed by Renate joseph MD> Date _ Renate Handley MD Cosigner Signature: Date (if applicable) CC: ~ [facility] Work Phone: 1(735) 453-987508-15-2025 Radiology Diagnostic study note [facility] Imaging Services [address] [place] [address] OB Limited With Biometrics MR#: [id number] Acct: [id number] Name: QUAN RODGERS KELTON Rep #: [id number] : 2000 F 25 From: Fercho Diallo MD PCP: Care Physician,No Primary Status: REG CLI Study:OB Limited With Biometrics Date of Exam : 02/07/25 Exam# [id number] Ordering Dr: Renate La MD PROCEDURE: OB [...] fall within normal expected range. Reading Location: [facility] CC: Dr. Renate Handley MD; No Primary Care Physician ~ Casino Investigator: Signed [facility]08-11-[address] [facility] [address], [address] [place] [address] OFFICE VISIT Date of Service: 02/03/25 MR#: [id number] Acct: [id number] Name: QUAN RODGERS KELTON Rep #: [id number] : 2000 Provider: Dr. 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 ?flutt ers. Reviewed nl PN labs. "Girl" Unable to void this appt. Nausea persists, [...] POC Urinalysis 2 Dip (Clinic) Today 02/03/25 110Disha joseph MD> Date _ Renate Handley MD [facility] Signature: Date (if applicable) CC: ~ [facility]07-31-[address] [facility] [address], [address] [place] [id number] OFFICE VISIT Date of Service: 01/23/25 MR#: [id number] Acct: [id number] Name: QUAN RODGERS KELTON Rep #: [id number] : 2000 Provider: Dr. 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 ?flutt ers. Reviewed nl PN labs. "Girl" Unable to void this appt. Nausea persists, heberan helpful 11/21/24 -?-?-?-?-?-?-?-?-?-?-?-?- 21w 3d 259 lb [...] 01/23/25 1118 jake SANTOS> Date _ Renate Handley MD [facility] Signature: Date (if applicable) CC: ~ [facility] [id number] [facility] [address], [address] [place] [address] OFFICE VISIT Date of Service: 01/06/25 MR#: [id number] Acct: [id number] Name: QUAN RODGERS Rep #: [id number] : 2000 Provider: Dr. 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 ?flutt ers. Reviewed nl PN labs. "Girl" Unable to void this appt. Nausea persists, charanjitfran helpful 11/21/24 -?-?-?-?-?-?-?-?-?-?-?-?- 21w 3d 259 lb (+0 oz) 113/68 Negative -?-?-?-?-?-?-?-?-?-?-?-?- Negative 150 20 -?-?-?-?-?-?-?-?-?-?-?-?- SM- SM- no vb cramping some inte rmittent left side pain suspect round ligament, UA and Culture 12/20/24 -?-?-?-?-?-?-?-?-?-?-?-?- 25w 4d 262 lb (+3 lb) 114/78 -?-?-?-?-?-?-?-?-?-?-?-?- 157 25 -?-?-?-?-?-?-?-?-?-?-?-?- LC- no vb/russ arellano. good fm. no concerns today. 28 week [...] Cosigner Signature: Date (if applicable) CC: ~ [facility]07-14-2025 Progress note Author Renate Handley [facility] Note Date/Time January 06, 2025 3:29 pm [facility] [address] [place] [address], [address] [place] [address] OFFICE VISIT Date of Service: 01/06/25 MR#: [id number] Acct: [id number] Name: QUAN RODGERS KELTON Rep #: [id number] : 2000 Provider: Dr. 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 ?flutt ers. Reviewed nl PN labs. "Girl" Unable to void this appt. Nausea persists, [...] Urinalysis 2 Dip (Clinic) Today 01/06/25 1529 <Electronically signed by Renate joseph MD> Date _ Renate Handley MD Cosign Signature: Date (if applicable) CC: ~ [facility] Work Phone: 1(111) 602-887007-02-2025 Radiology Diagnostic study note [facility] Imaging Services [address] [place], [place] [address] Transvaginal w/Preg MR#: [id number] Acct: [id number] Name: QUAN RODGERS KELTON Rep #: [id number] : 2000 F 24 From: Kevin Kidd MD PCP: Care Physician,No Primary Status: REG CLI Study:Transvaginal w/Preg US Date of Exam: 12/25/24 Exam# [id number] Ordering Dr: Raven Sandoval DO PROCEDURE: TRANSVAGINAL [...] minute. Left ovary not evaluated Reading Location: [id number] CC: Dr. Raven Modi DO; No Primary Care Physician ~ Casino Investigator: Signed [facility]07-02-2025 Radiology Diagnostic study note [facility] Imaging Services [address] [place] [address] Kidney and Bladder MR#: [id number] Acct: [id number] Name: QUAN RODGERS KELTON Rep #: [id number] : 2000 F 24 From: Kevin Kidd MD PCP: Care Physician,No Primary Status: REG CLI Study:Kidney and Bladder Date of Exam: 0 12/25/24 Exam# [id number] Ordering Dr: Raven Sandoval DO PROCEDURE: KIDNEY [...] or suspicious solid renal lesion. Reading Location: [id number] CC: Dr. Raven Modi, DO; No Primary Care Physician ~ Casino Investigator: Signed [facility]06-27-[address] [facility] [address], [address] [place] [address] OFFICE VISIT Date of Service: 12/20/24 MR#: [id number] Acct: [id number] Name: QUAN RODGERS Rep #: [id number] : 2000 Provider: KEO Eli Age/Sex: 24/F Location[facility] Status: Signed Intake Vital Signs 09/26/24 13:48 11/21/24 10:42 12/20/24 08:29 Height 5 ft 11 in 5 ft 11 in 5 ft 11 in Weight: 262 lb BMI 36.5 BP 114/78 Intake Visit Reasons: 25wk ob Chief Complaint: 25wk OB Dragline Mechanic Required: No Is patient in pain?: No [...] 1 current occupational status: employed 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 ?flutt ers. Reviewed nl PN labs. "Girl" Unable to void this appt. N abisai [...] visit. GA appropriate handout given. 12/20/24 0851 ns CNM> Date _ Dariana Eli CNDebi Cosigner Signature: Date (if applicable) CC: ~ [facility]05-29-2025 Evaluation note* Diagnosis Onset Date Resolution Status [...] 2025 1:33pm Pelvic pain affecting acute March 03 025 1:33pm acute March 03, 2025 1:33pm Sterilization acute March 032024 1:33pm Supervision of high-risk acute March 03, 2 025 1:33pm [facility] Work Phone: 1([phone]) 852-574305-29-2025 Evaluation note* Diagnosis Onset Date Resolution Status [...] acute February 03 10:38am acute February 03, 2 025 10:38am [...] high-risk acute March 03, 2 025 1:33pm Family history of autism acute March 10, 2025 12:43pm History of delivery , currently acute February 12:43pm Obesity affecting acute March 10, 2025 12:43pm Pelvic pain affecting acute March 10, 2025 12:43pm acute February 12:43pm Sterilization acute February 242024 12:43pm Supervision of high-risk acute March 10, 2025 12:43pm [facility] Work Phone: 1(689) 546-957605-29-[address] [facility] [address] [place] [address], [address] [place] [address] OFFICE VISIT Date of Service: 11/21/24 MR#: [id number] Acct: [id number] Name: QUAN RODGERS [facility] Rep #: [id number] : 2000 Provider: Dr. 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 ?flutt ers. Reviewed nl PN labs. "Girl" Unable to void this appt. Nausea persists, [...] Supervision of high risk in second trimester O. Trimester: second trimester 21 weeks gestation of [...] unspecified, second trimester Comment: PRR, , LINDA 10/06/25 Girl, Rao PC: Babak, : Adolph (5) : Status: Acute Qualifiers: Weeks of gestation: 21 weeks Qualified Code(s): Z3A.21 - 21 weeks gestation of Comment: Discussed genetic/carrier testing - prior carrier done. Panorama low risk- female. unremarkable anatomy, consistent dates Orders: Orders POC Urinalysis 2 Dip (Clinic) Today 11/21/24 Jovanna3 jake SANTOS> Date _ Renate Handley MD Cosign Signature: Date (if applicable) CC: ~ [facility]05-21-2025 Radiology Diagnostic study note [facility] Imaging Services [address] [place], [place] [address] OB Anatomy w/ Transvaginal MR#: [id number] Acct: [id number] Name: QUAN RODGERS KELTON Rep #: [id number] : 2000 F 24 From: Fercho Diallo MD PCP: Care Physician,No Primary Status: REG CLI Study:OB Anatomy w/ Transvaginal Date of Exam : 11/12/24 Exam# [id number] Ordering Dr: Geneva Wheeler ELECTRICIAN SUBSTATION SUPERVISOR ELECTRICIAN SUBSTATION SUPERVISOR-C PROCEDURE: OB ANATOMY W/ TRANSVAGINAL 11/12/2024 REASON [...] of 19 weeks and 4days. Reading Location: [place] [address] CC: DANIEL Wheeler; No Primary Care Physician ~ Casino Investigator: Signed [facility]04-28-2025 Evaluation note* Diagnosis Onset Date Resolution [...] Supervision of high-risk acute February 03 10:38am [facility] Work Phone: 1([phone]) 654-743404-28-2025 Evaluation note* Diagnosis Onset Date Resolution Status [...] Supervision of high-risk acute February 18 2:41pm [facility] Work Phone: [phone] Evaluation note* Diagnosis Onset Date Resolution Status [...] of high-risk acute January 06, 2025 2:40pm [facility] Work Phone: [phone]) [phone] Evaluation note* Diagnosis Onset Date Resolution Status [...] of high-risk acute January 23, 2025 10:31am [facility] Work Phone: 1([phone]) 841-969303-12-2025 Evaluation note* Diagnosis Onset Date Resolution Status [...] high-risk acute December 25, 2024 9 :30am [facility] Work Phone: 1([phone]) [phone] Discharge summary [facility] Medical Records Department [address] [place] [address] Emergency Department Summary 08/30/24 MR#: [id number] Acct: [id number] Name: QUAN RODGERS KELTON Rep #:[id number] [...] had a checkup in the office and transfer operator didan ultrasound and told her she [...] 1 current occupational status: employed 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 Print Language: Cypriot Disposition Disposition: Home, Self Care What to do if you have Problems For any increased pain, shortness of breath, bleeding, nausea or vomiting, chestpain, or any unexpected problems, contact your Primary Care Provider. Call [facility] ([phone]) or report tothe closest Emergency Room. Call 911 if necessary. 08/30/24 0222 Cosigner Signature (if applicable): CC: Dr. Renate Handley MD; No Primary Care Physician ~ Signed [facility]03-07-2025 Radiology Diagnostic study note [facility] Imaging Services [address] [place] [address] Transvaginal w/Preg US MR#: [id number] Acct: [id number] Name: QUAN RODGERS KELTON Rep #: [id number] : 2000 F 24 From: Zia Lynn MD PCP: Care Physician,No Primary Status: REG ER Study:Transvaginal w/Preg US Date of Exam: 08/30/24 Exam# [id number] Ordering Dr: Geovanni Villafuerte MD PROCEDURE: TRANSVAGINAL [...] tones 177 beats per minute.. Reading Location: [id number] CC: Dr. Christiano Villafuerte MD; No Primary Care Physician ~ Casino Investigator: Signed [facility]03-06-2025 Evaluation note* Diagnosis Onset Date Resolution Status Admit Date Family history of autism acute August 29, 2024 11:05am History of delivery , currently acute August 29 11:05am Obesity affecting acute August 29, 2024 11:05am acute August 29 11:05am Supervision of high-risk acute August 29, 2024 11:05am [facility] Work Phone: 1([phone]) 452-400403-06-2025 Evaluation note* Diagnosis Onset Date Resolution Status [...] trimester, antepartum inactive September 04, 2024 10:51am [facility] Work Phone: 1([phone]) 483-853003-06-2025 Evaluation note* Diagnosis Onset Date Resolution Status [...] of high-risk acute September 26, 2024 1:43pm [facility] Work Phone: [phone]) [phone] Evaluation note* Diagnosis Onset Date Resolution Status [...] of high-risk acute October 21, 2024 8:36am [facility] Work Phone: [phone] Evaluation note* Diagnosis Onset Date Resolution Status [...] high-risk acute November 21, 2024 1 0:26am [facility] Work Phone: [phone] Evaluation note* Diagnosis Onset Date Resolution Status [...] of high-risk acute December 20, 2024 8:28am [facility] Work Phone: [phone]) [phone] Evaluation note* Diagnosis Onset Date Resolution Status [...] high-risk acute December 25, 2024 8 :55am [facility] Work Phone: [phone] Evaluation note* Diagnosis Onset Date Resolution Status Admit Date Family history of autism acute August 29, 2024 11:05am History of delivery , currently acute August 29 11:05am Obesity affecting acute August 29, 2024 11:05am acute August 29 11:05am Supervision of high-risk acute August 29, 2024 11:05am Family history of autism acute September 04, 2024 10:51am History of delivery , currently acute September 04, 10:51am Obesity affecting acute September 04, 2024 [...] high-risk acute December 25, 2024 8 :55am [facility] Work Phone: 1([phone] NotePap Smear Specimen AdequacyMar 2024 12:48pmComment.Satisfactory for evaluation. Endocervical and/or squamous metaplasticcells (endocervical component)are present.[facility] A#[id number] Citizens HospitalComment on above:Satisfactory for evaluation. Endocervical and/or squamous metaplasticcells (endocervical component)are present.08-29-2024 NotePap Smear Specimen AdequacyMarch 2024 12:48pmComment.Satisfactory for evaluation. Endocervical and/or squamous metaplasticcells (endocervical component)are present.[facility] A#[id number] [facility], IncComment on above:Satisfactory for evaluation. Endocervical and/or squamous metaplasticcells (endocervical component)are present.Discharge summary Author Christiano Villafuerte [facility] Note Date/Time August 30, 2024 2:22 am [facility] Medical Records Department [address] [place] [address] Emergency Department Summary 08/30/24 MR#: [id number] Acct: [id number] Name: QUAN RODGERS KELTON Rep #:[id number] [...] had a checkup in the office and transfer operator did an ultrasound and told her she had an IUP. G2, . She states she was having some trouble urinating tonight 2,when she felt like she needed to go she only dribbled a little. She denies any hematuria. No dysuria. No pain in her flank or back. No nausea or vomiting. No fevers or chills. Normal bowel movements. 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 Print Language: Cypriot Disposition Disposition: Home, Self Care What to do if you have Problems For any increased pain, shortness of breath, bleeding, nausea or vomiting, chestpain, or any unexpected problems, contact your Primary Care Provider. Call [facility] ([phone]) or report to the closest Emergency Room. Call 911 if necessary. 08/30/24221 <Electronically signed by Christiano Villafuerte MD> Cosigner Signature (if applicable): CC: Dr. Renate Handley MD; No Primary Care Physician ~ Signed [facility] Work Phone: Evaluation note* Diagnosis Onset [...] Supervision of normal acute UTI in acute [facility] Work Phone: Evaluation note* Diagnosis Onset [...] Supervision of normal resolved UTI in resolved [facility] Work Phone: Evaluation note* Diagnosis Onset Date Resolution Status delivery delivered acute care and examination noneactive [facility] Work Phone: Evaluation noteNo assessment information available [facility] Work Phone: Hospital Discharge instructions Additional Instructions Keep your scheduled appointment with Dr. Renate Handley tomorrow after picking up your Depo-Provera.[facility] Work Phone: Hospital Discharge instructions Additional [...] strength Tylenol, 1000 mg, about every 6 hours.[facility] Work Phone: Hospital Discharge instructionsAdditional Instructions may use heating pad, Tylenol and warm bathsW[facility] Work Phone: Hospital Discharge instructionsAdditional Instructions keep next appointmentWSelect [facility] Work Phone: Progress note Author Renate Handley [facility] Note Date/Time November 21, 2024 11:13 am [facility] [address], [address] [place] [address] OFFICE VISIT Date of Service: 11/21/24 MR#: [id number] Acct: [id number] Name: QUAN RODGERS KELTON Rep #: [id number] : 2000 Provider: Dr. 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 ?flutt ers. Reviewed nl PN labs. "Girl" Unable to void this appt. Nausea persists, [...] Discussed genetic/carrier testing - [facility]. unremarkable anatomy, consistent dates Orders: Orders POC Urinalysis 2 Dip (Clinic) Today 11/21/24 1113 <Electronically signed by Renate joseph MD> Date _ Renate Handley MD Cosigner Signature: Date (if applicable) CC: ~ [facility] Work Phone: Progress note Author Dariana Eli [facility] Note Date/Time December 20, 2024 8:51 am [facility] [address], [address] [place] [address] OFFICE VISIT Date of Service: 12/20/24 MR#: [id number] Acct: [id number] Name: QUAN RODGERS KELTON Rep #: [id number] : 2000 Provider: KEO Eli Age/Sex: 24/F Location[place] [facility] [place] Status: Signed Intake Vital Signs 09/26/24 13:48 11/21/24 10:42 12/20/24 08:29 Height 5 ft 11 in 5 ft 11 in 5 ft 11 in Weight: 262 lb BMI 36.5 BP 114/78 Intake Visit Reasons: 25wk ob Chief Complaint: 25wk OB Dragline Mechanic Required: No Is patient in pain?: No [...] 1 current occupational status: employed 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 ?flutt ers. Reviewed nl PN labs. "Girl" Unable to void this appt. N abisai jefferson, refugio helpful 11/21/24 -?-?-?-?-?-?-?-?-?-?-?-?- 21w 3d 259 lb (+0 oz) 113/68 Negative -?-?-?-?-?-?-?-?-?-?-?-?- Negative 150 20 -?-?-?-?-?-?-?-?-?-?-?-?- SM- SM- no vb cramping some inte rmittent left side pain suspect round ligament, UA and Culture 06/27/25 -?-?-?--?-?-?-?-?-?-?-?-?- 25w 4d 262 lb (+3 lb) [...] this visit. GA appropriate handout given. 12/20/24 3153 <Electronically signed by Dariana valentine CNM> Date _ Dariana Eli CNM Cosigner Signature: Date (if applicable) CC: ~ [facility] Work Phone: Progress note Author Renate Handley [facility] Note Date/Time January 23, 2025 11:[address] [facility] [address], [address] [place] [address] OFFICE VISIT Date of Service: 01/23/25 MR#: [id number] Acct: [id number] Name: QUAN RODGERS Rep #: [id number] : 2000 Provider: Dr. 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 ?flutt ers. Reviewed nl PN labs. "Girl" Unable to void this appt. Nausea persists, [...] Discussed genetic/carrier testing - prior carrier done. [facility] low risk- female. unremarkable anatomy, consistent dates Orders: Orders POC Urinalysis 2 Dip (Clinic) Today 01/23/25 1118 <Electronically signed by Renate joseph MD> Date _ Renate Handley MD Cosign Signature: Date (if applicable) CC: ~ [facility] Work Phone: Progress note Author Renate Handley [facility] Note Date/Time 2025 11 :07am [facility] [address] [place] [address], [address] [place] [address] OFFICE VISIT Date of Service: 02/03/25 MR#: [id number] Acct: [id number] Name: QUAN RODGERS KELTON Rep #: [id number] : 2000 Provider: Dr. 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 ?flutt ers. Reviewed nl PN labs. "Girl" Unable to void this appt. Nausea persists, charanjitfran helpful 11/21/24 -?-?-?-?-?-?-?-?-?-?-?-?- 21w 3d 259 lb (+0 oz) 113/68 Negative -?-?-?-?-?-?-?-?-?-?-?-?- Negative 150 20 -?-?-?-?-?-?-?-?-?-?-?-?- SM- SM- no vb cramping some inte rmittent left side pain suspect round ligament, UA and Culture 12/20/24 -?-?-?-?-?-?-?-?-?-?-?-?- 25w 4d 262 lb (+3 lb) 114/78 -?-?-?-?-?-?-?-?-?-?-?-?- 157 25 -?-?-?-?-?-?-?-?-?-?-?-?- LC- no vb/russ ng. good fm. no concerns today. 28 [...] Discussed genetic/carrier testing - prior carrier done. [facility] low risk- female. unremarkable anatomy, consistent dates Orders: Orders POC Urinalysis 2 Dip (Clinic) Today 02/03/25 1107 <Electronically signed by Renate joseph MD> Date _ Renate Handley MD Cosigner Signature: Date (if applicable) CC: ~ [facility] Work Phone: Progress note Author Renate Handley [facility] Note Date/Time March 10, 2025 1:44pm [facility] [address] [place] [address], [address] [place] [address] OFFICE VISIT Date of Service: 03/10/25 MR#: [id number] Acct: [id number] Name: QUAN RODGERS KELTON Rep #: [id number] : 2000 Provider: Dr. Dameon Handley MD Age/Sex: 25/F [place] [facility] [place] Status: Signed Intake Vital Signs 01/06/25 14:59 02/03/25 10:41 02/13/25 11:44 03/07/25 21:37 03/10/25 13:06 Height 5 ft 10 in 5 ft 10 in 5 ft 10 in 5 ft 11 in 5 ft 11 in Weight: 270 lb 6 oz BMI 37.7 BP 129/80 H Intake Visit Reasons: 37 wk ob/nst *SM Csection Dragline Mechanic Required: No Is patient in pain?: No Allergies No Known Allergies Allergy (Verified 03/10/25 13:11) Medications ?Medication ?Instructions ?Recorded ?Confirmed ?Type metoclopramide HCl 10 mg tablet 10 mg PO Q6H PRN nause a and 03/08/25 03/10/25 Rx (Reglan) vomiting #30 tabs cephalexin 500 mg capsule 500 mg PO TID 7 days #21 cap s 03/10/25 03/10/25 Rx Last Menstrual Period: 06/24/24 Zika: Zika virus screening: Negative : No PFSH PFSH Medical History Chorioamnionitis delivery delivered Surgical History History of section History of surgery Social History adopted: No household members: children and other details: mom housing: house number of children: 1 current occupational status: employed 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 OB Visit LINDA Calculator Estimated Delivery Date Method Current WG Current Estimate 03/31/25 LMP (Certain) 37w 0d Other Estimates 03/30/25 Ultrasound #1 37w 1d Expected Delivery Route/Plan Repeat C/S with [...] VB. ?flutt ers. Reviewed nl PN labs. "Girl" Unable to void this appt. Nausea persists, [...] KUB to rule out kidney stone. 01/06/25 -?-?-?-?-?--?-?-?-?-?-?-?- 28w 0d 260 lb 8 oz (+1 lb 8 oz) 108/73 -?-?-?-?-?-?-?-?-?-?-?-?- 145 28 -?-?-?-?-?-?-?-?-?-?-?-?- SM- no vb lof go od fm no reuglar ctx desires steriliation 01/23/25 -?-?-?-?-?-?-?-?-?-?-?-?- 30w 3d 264 lb 4 oz (+5 lb 4 oz) 112/73 -?-?--?-?-?-?-?-?-?-?-?-?- 140 31 -?-?-?-?-?-?-?-?-?-?-?-?- SM- no vb lof [...] lof go od fm no regular ctx 03/03/25 -?-?-?-?-?-?-?-?-?-?-?-?- 36w 0d 267 lb 1 oz (+8 lb 1 oz) 123/72 -?-?-?-?-?-?-?-?-?-?-?-?- 140 -?-?-?-?-?-?-?-?-?-?-?-?- SM- no vb lof go od fm no regular ctx, non reactive nst to l and d for bpp and monitoring 03/10/25 -?-?-?-?-?-?-?-?-?-?-?-?- 37w 0d 270 lb 6 oz (+11 lb 6 oz) 129/80 -?-?-?-?-?-?-?-?-?--?-?-?- 140 -?-?-?-?-?-?-?-?-?-?-?-?- SM- no vb lof go od fm n oregular ctx has uti ACOG First Trimester First Trimester: Desire for [...] and Family Medical Leave or Disability Forms Office Procedures Non-stress Test Non-Stress Test Indications for Monitoring: Yes Morbid obesity Heart Rate Baseline: 140 Heart Rate Variability: moderate Movement: Present Heart Rate Accelerations: Present Decelerations: Absent Contractions: Absent Impression: Yes Reactive Non-Stress Test Category 1 Coding Level of Care Code OB Routine Diagnoses Sterilization Z30.2 Pelvic pain affecting O26.899; R10.2 Family history of autism Z81.8 History of delivery, currently O34.219 Obesity affecting in second trimester, unspecified obesity type O99.212 Obesity type affecting : unspecified obesity Trimester: second trimester Supervision of high risk in second trimester O09.92 Trimester: second trimester 37 weeks gestation of Z3A.37 Weeks of gestation: 37 weeks CPT Codes Non-Stress Test (73041) Assessment and Plan Assessment and Plan (1) Sterilization: Status: Acute Comment: title 19 signed 01/06 (2) Pelvic pain affecting : Status: Acute (3) Family history of autism: Status: Acute Comment: FOB sister (4) History of delivery, currently : Status: Acute Comment: x1, Desires rpt csec with SM, c/s 9/29. (5) Obesity affecting : Status: Acute Qualifiers: [...] : Status: Acute Qualifiers: Weeks of gestation: 37 weeks Qualified Code(s): Z3A.37 - 37 weeks gestation of Comment: Discussed genetic/carrier testing - prior carrier done. [facility] low risk- female. unremarkable anatomy, consistent dates Orders: Orders POC Urinalysis 2 Dip (Clinic) Today OB NST Today O99.212 - Obesity complicating , second trimester 03/10/25 1344 <Electronically signed by Renate joseph MD> Date _ Renate Handley MD Cosign Signature: Date (if applicable) CC: ~ [facility] Work Phone: Reason for referral (narrative)No reason for referral information availableWSelect [facility] Work Phone: Summary Purpose Family History No Family History Records FoundNo Family History Records FoundNo Family History Records FoundNo Family History Records Found Advance Directives No Advanced Directives Records Found Advance Directive Response Recorded Date/ Time Living Will No November 04, 2021 8 :31pm Power of Ux Developer No November 04, 2021 8:31pm Advance Directive Response Recorded Date/ Time Living Will No April 14 4:25pm Power of Ux Developer No April 14, 2022 4:25pm Advance Directive Response Recorded Date/ Time Living Will No August 15, 024 5:50pm Power of Ux Developer No August 15, 2023 5:50pm Advance Directive Response Recorded Date/ Time Living Will No August 30, 2024 12:39am Power of Ux Developer No August 30 12:39am Living Will No June 16, 024 8:48pm Power of Ux Developer No June 16, 2024 8:48pm Advance Directive Response Recorded Date/ Time Living Will No August 30, 2024 1:39am Power of Ux Developer No August 30 1:39am Living Will No June 16, 024 9:48pm Power of Ux Developer No June 16, 2024 9:48pm Advance Directive Response Recorded Date/ Time Living Will No August 30, 2024 1:39am Do you have a Healthcare Power of Ux Developer? No August 30, 2024 1:39am Living Will No June 16 024 9:48pm Do you have a Healthcare Power of Ux Developer? No June 16, 2024 9:48pm Advance Directive Response Recorded Date/ Time Living Will No August 30, 2024 1:39am Do you have a Healthcare Power of Ux Developer? No August 30, 2024 1:39am Do you have a Healthcare Power of Ux Developer? No October 25, 2024 7:30pm Advance Directive Response Recorded Date/ Time Do you have a Healthcare Power of Ux Developer? No October 25, 2024 7:30pm Chief Complaint [...] 29, 2024 11:05am Obesity affecting August 29, 025 11:05am August 29, 2024 11:0 5am [...] currently September 26, 2024 1:43pm Obesity affecting Melissa 3rd, 2 025 1:43pm September 26, 2024 1:43 [...] 29, 2024 11:05am Obesity affecting August 29, 11:05am August 29, 2024 11:0 5am Supervision [...] 21wk ob November 21, 2024 10:26 am wk ob December 20, 2024 8:28 am OB, [...] 23, 2025 10:31am Obesity affecting January 23, 2 025 10:31am Pelvic pain affecting December 10:31am [...] 2025 1: 42pm Chief Complaint Admit Date wk ob October 21, 2024 8:3 6am [...] 2025 10 :38am Supervision of high-risk Augus 2024 10:38am Family history of autism February 18 2:41pm History of delivery, currently February 18, 2025 2:41pm Obesity affecting February 18, 2025 2:41pm Pelvic pain affecting January 252024 2:41pm February 18, 2025 2: 41pm Sterilization February 18, 2025 2: 41pm Supervision of high-risk Augus 2024 2:41pm Family history of autism March 03, 2025 1:33pm History of delivery, currently March 03, 2025 1:33pm Obesity affecting February 1:33pm Pelvic pain affecting Septembe r 2024 1:33pm March 03, 2025 1:33pm Sterilization March 03, 2025 1:33pm Supervision of high-risk Septe mber 2024 1:33pm Chief Complaint Admit Date Supervision [...] NON REACTIVE NST March 03, 2025 2:58pm Chief Complaint Admit Date Supervision of high risk , [facility], November 12, 2024 12:01pm wk ob [...] NON REACTIVE NST March 03, 2025 2:58pm NON REACTIVE NST March 03, 2025 5:44pm R/O LABOR March 07, 2025 9:30pm Chief Complaint Admit Date Supervision of high risk , unsp [facility], November 12, 2024 12:01pm wk ob November [...] NON REACTIVE NST March 03, 2025 2:58pm NON REACTIVE NST March 03, 2025 5:44pm R/O LABOR March 07, 2025 9:30pm R/O LABOR March 08, 2025 12:22am 37 wk ob/nst *SM Csection February 12:43pm Reason for Visit Admit Date Family history [...] January 23, 2025 10:31am Obesity affecting January 23 10:31am Pelvic pain affecting December 10:31am January [...] Obesity affecting February 1:33pm Pelvic pain affecting Febembe 2024 1:33pm March 03, 2025 1:33pm Sterilization March 03, 2025 1:33pm Supervision of high-risk Septe mbjennifer 2024 1:33pm Family history of autism March 10, 2025 12:43pm History of delivery, currently March 10, 2025 12:43pm Obesity affecting March 102024 12:43pm Pelvic pain affecting Asael loza 2024 12:43pm March 10, 2025 12:43pm Sterilization March 10, 2025 12:43pm Supervision of high-risk Nickie giordanojennifer 2024 12:43pm Additional Source Comments INFORMATION SOURCE (unrecogn ized section and content) DATE CREATED AUTHOR 01/14/2020 [facility] DATE CREATED AUTHOR AUTHOR'S ORGANIZ ATION 12/22/2020 [facility] ([place]) DATE CREATED AUTHOR AUTHOR'S ORGANIZ ATION 04/10/2021 [facility] dical Center DATE CREATED AUTHOR AUTHOR'S ORGANIZ ATION 03/13/2025 [facility] Goals (unrecognized section and content) Goals [...] 2024 End: October 21, 2024 Geneva Wheeler ELECTRICIAN SUBSTATION SUPERVISOR, ELECTRICIAN SUBSTATION SUPERVISOR-C Attending Provider Active Start: October 21, 2024 [...] 2024 End: November 12, 2024 Geneva Wheeler ELECTRICIAN SUBSTATION SUPERVISOR, ELECTRICIAN SUBSTATION SUPERVISOR-C Attending Provider Active Start: November 12, 2024 End: November 12, 2024 Geneva Wheeler ELECTRICIAN SUBSTATION SUPERVISOR, ELECTRICIAN SUBSTATION SUPERVISOR-C Referring Provider Active Start: November 12, 2024 [...] Member Role Status Dates Dr. Lukas Westbrook , Family Provider Active No Primary Care Physician [...] End: October 21, 2024 Geneva Wheeler NP, ELECTRICIAN SUBSTATION SUPERVISOR-C Attending Provider Active Start: October 21, 2024 [...] 2024 End: November 12, 2024 Geneva Wheeler NP, ELECTRICIAN SUBSTATION SUPERVISOR-C Attending Provider Active Start: November 12, 2024 End: November 12, 2024 Geneva Wheeler ELECTRICIAN SUBSTATION SUPERVISOR, ELECTRICIAN SUBSTATION SUPERVISOR-C Referring Provider Active Start: November 12, 2024 [...] 2024 End: December 25, 2024 Dr. Raven oMdi DO Attending Provider Activ e Start: December [...] Active Start: December 25, 2024 Dr. Raven Vande Velde , DO Attending Provider Activ e Start: December 25, 2024 Team Status: Inactive Member Role/Relationship Status Dates No Primary Care Physician Primary Care Provider Active Start: September 04, 2024 End: September 04, 2024 No Primary Care Physician Referring Provider Active Start: September 04, 2024 End: September 04, 2024 Dr. Raven Modi , DO Attending [...] 2024 End: October 21, 2024 Geneva Wheeler ELECTRICIAN SUBSTATION SUPERVISOR, ELECTRICIAN SUBSTATION SUPERVISOR-C Attending Provider Active Start: October 21, 2024 [...] 2024 End: November 12, 2024 Geneva Wheeler ELECTRICIAN SUBSTATION SUPERVISOR, ELECTRICIAN SUBSTATION SUPERVISOR-C Attending Provider Active Start: November 12, 2024 End: November 12, 2024 Geneva Wheeler ELECTRICIAN SUBSTATION SUPERVISOR, ELECTRICIAN SUBSTATION SUPERVISOR-C Referring Provider Active Start: November 12, 2024 [...] 25, 2024 End: December 25, 2024 Dr. Ravne Modi DO Attending Provider Activ e Start: [...] December 25, 2024 Dr. Raven Modi DO Other Provider Active Start: December 25, [...] End: October 21, 2024 Geneva Wheeler NP, ELECTRICIAN SUBSTATION SUPERVISOR-C Attending Provider Active Start: October 21, 2024 [...] 2024 End: November 12, 2024 Geneva Wheeler NP, ELECTRICIAN SUBSTATION SUPERVISOR-C Attending Provider Active Start: November 12, 2024 End: November 12, 2024 Geneva Wheeler ELECTRICIAN SUBSTATION SUPERVISOR, ELECTRICIAN SUBSTATION SUPERVISOR-C Referring Provider Active Start: November 12, 2024 [...] Start: January 06, 2025 Geneva Wheeler NP, ELECTRICIAN SUBSTATION SUPERVISOR-C Attending Provider Active Start: January 06, 2025 Team Status: Inactive Member Role/Relationship Status Dates No Primary Care Physician Primary Care Provider Active Start: January 06, 2025 End: January 06, 2025 Geneva Wheeler NP, ELECTRICIAN SUBSTATION SUPERVISOR-C Attending Provider Active Start: January 06, 2025 [...] 2024 End: October 21, 2024 Geneva Wheeler ELECTRICIAN SUBSTATION SUPERVISOR, ELECTRICIAN SUBSTATION SUPERVISOR-C Attending Provider Active Start: October 21, 2024 End: October 21, 2024 Team Status: Inactive Member Role/Relationship Status Dates No Primary Care Physician Primary Care Provider Active Start: October 25, 2024 End: October 25, 2024 Dr. Heraclio Ornelsa DO Attending Provider Active Start: October 25, 2024 End: October 25, 2024 Dr. Heraclio Ornelas DO Emergency Provider Active Start: October 25, 2024 End: October 25, 2024 Team Status: Inactive Member Role/Relationship Status Dates No Primary Care Physician Primary Care Provider Active Start: November 12, 2024 End: November 12, 2024 Geneva Wheeler ELECTRICIAN SUBSTATION SUPERVISOR, ELECTRICIAN SUBSTATION SUPERVISOR-C Attending Provider Active Start: November 12, 2024 End: November 12, 2024 Geneva Wheeler ELECTRICIAN SUBSTATION SUPERVISOR, ELECTRICIAN SUBSTATION SUPERVISOR-C Referring Provider Active Start: November 12, 2024 [...] End: January 06, 2025 Geneva Wheeler NP, ELECTRICIAN SUBSTATION SUPERVISOR-C Attending Provider Active Start: January 06, 2025 [...] 2024 End: November 12, 2024 Geneva Wheeler NP, ELECTRICIAN SUBSTATION SUPERVISOR-C Attending Provider Active Start: November 12, 2024 End: November 12, 2024 Geneva Wheeler NP, ELECTRICIAN SUBSTATION SUPERVISOR-C Referring Provider Active Start: November 12, 2024 [...] End: January 06, 2025 Geneva Wheeler NP, ELECTRICIAN SUBSTATION SUPERVISOR-C Attending Provider Active Start: January 06, 2025 [...] 2025 End: March 03, 2025 Team Status: Active Member Role/Relationship Status Dates No Primary Care Physician Primary Care Provider Active Start: March 03, 2025 Dr. Renate Handley MD Attending Provider Active Start: March 03, 2025 Dr. Renate Handley MD Referring Provider Active Start: March 03, 2025 Dr. Renate Handley MD Other Provider Active Start: March 03, 2025 Team Status: Inactive Member Role/Relationship Status Dates No Primary Care Physician Primary Care Provider Active Start: March 07, 2025 End: March 08, 2025 Dr. Renate Handley MD Attending Provider Active Start: March 07, 2025 End: March 08, 2025 Dr. Renate Handley MD Referring Provider Active Start: March 07, 2025 End: March 08, 2025 Team Status: Active Member Role/Relationship Status Dates No Primary Care Physician Primary Care Provider Active Start: March 08, 2025 Dr. Renate Handley MD Attending Provider Active Start: March 08, 2025 Dr. Renate Handley MD Referring Provider Active Start: March 08, 2025 Dr. Renate Handley MD Other Provider Active Start: March 08, 2025 Team Status: Inactive Member Role/Relationship Status Dates No Primary Care Physician Primary Care Provider Active Start: March 10, 2025 End: March 10, 2025 No Primary Care Physician Referring Provider Active Start: March 10, 2025 End: March 10, 2025 Dr. Renate Handley MD Attending Provider Active Start: March 10, 2025 End: March 10, 2025 FOR RECORDS PERTAINING TO PATIENTS WHO [...] BE BASED ON THE PRIMARY CLINICAL RECORDS. [facility] [employer] provides no warranty or guarantee of the accuracy or completeness of information in this document.
[2025-03-13 23:40] VITALS: BMI 39.2
[2025-03-13 23:54] VITALS: BP 128/83; PULSE 94; RESP 17; TEMP 36.4
[2025-03-14 00:48] VITALS: BP 150/87; PULSE 100
[2025-03-14] MEDS: DiphenhydrAMINE 50 MG/ML Syringe 25 MG IV (00:55)
[2025-03-14] MEDS: 0.9% Saline Lock 10 ML Syringe IV (00:55)
[2025-03-14] MEDS: LACTATED RINGERS 500 ML 999 ML IV (00:56)
[2025-03-14 00:57] LABS: Hematocrit 34.7 % (37-47); Hemoglobin 12.2 g/dL (12.0-15.0); Mean Corp Hgb Conc 35.2 g/dL (32-36); Mean Corpuscular Volume 90.1 fL (81-99); Mean Platelet Vol. 11.8 fl (6.2-12.0); Platelet Count 203 K/mm3 (150-450); RBC Distribution Width CV 12.5 % (11.6-14.6); RBC Distribution Width SD 40.4 fl (35.1-43.9); Red Blood Count 3.85 M/mm3 (4.2-5.4); White Blood Count 10.1 K/mm3 (4.4-11.0)
[2025-03-14 01:15] LABS: AST(SGOT) 21 U/L (<=31); Alanine Aminotransfer ALT/SGPT 14 U/L (<=34); Estimated Creatinine Clearance 227.61 ml/min (50-250)
[2025-03-14 01:17] VITALS: BP 111/71; PULSE 84
[2025-03-14 01:21] LABS: Creatinine, Urine (random) 227.00 mg/dL (28.00-217.00); Protein, Urine (Random) 22.2 mg/dL (0.0-12.0); Protein:Creat Ratio 98 mg/g CRE (0-200)
--- NOTE | 2025-03-14 02:18 | OB.TRI.NOTE ---
HPI - General HPI Jun RODGERS, is a 25 y/o @ 37 weeks who presents to L&D with a headache. A PIH work up was ordered. during her triage stay a blood pressure in the range of 150/87 was noted, however that was the only elevated blood pressure. The patient has a pressure as low as 109/58. She was offered tylenol, benadryl, and zofran for her headache, which she accepted. She denied visual changes, epigastric pain, nausea, or vomiting. After monitoring and labs, her pressures were normal and her headache resolved. Maternal Data Information LINDA Calculator Estimated Delivery Date Method Current WG Current Estimate 03/31/25 LMP (Certain) 38w 1d Other Estimates 03/30/25 Ultrasound #1 38w 2d PFSH PFS Medical History Chorioamnionitis delivery delivered Home Medications Medication Instructions Recorded Last Taken Type NK 03/17/25 Unknown History famotidine 20 mg tablet (Pepcid) 20 mg PO BID #60 tabs 03/17/25 Unknown Rx metoclopramide HCl 10 mg tablet 10 mg PO TID nausea #90 tabs 03/17/25 Unknown Rx (Reglan) Allergy/AdvReac Type Severity Reaction Status Date / Time No Known Allergies Allergy Verified 03/17/25 12:58 Surgical History History of section History of surgery Social History adopted: No household members: children and other details: mom housing: house number of children: 1 current occupational status: employed 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 @ [employer] current occupational exposures/hazards: No pets and animals: No history of recent travel: No sexually active: Yes Smoking Status: Former smoker second hand exposure: No alcohol intake: never substance use type: does not use well-balanced diet: daily or most days caffeine: Yes Type: carbonated beverages eating out: rarely or never during the past year weight has: remained stable what type of physical activity do you participate in: walking frequency: 1-2 times per week duration: < 15 minutes/day aly/adventism: None seatbelt use: always do you feel safe at home: Yes additional social history: : Max History 2 Elective abortions Hx Para 1 Spontaneous abortions Hx # Term Pregnancies 1 Ectopic pregnancies Hx # Pregnancies Multiple births # of living children 1 Past Pregnancies Del. Date Name GA/Weeks Outcome Route Bth Weight Gen Labor Lgth Anesthesia Del Locatn Provider FOB 11/06/21 Babak 39 live - full term 8lbs 14oz Male epidural [facility] Renate Cervantes Max Delivery Date: 11/06/21 Last Updated by: Adri Kimble RN LTCS SM AOD 6 cm boy Babak IOL 41 Visit Details Expected Delivery Route/Plan Repeat C/S with SM Plans Covid status: [] Flu vaccine: [] Tdap vaccine: [] Rhogam: [] LARC form signed: [] Problem list reviewed and updated with the most current plan of care details and appropriate orders placed. Relevant counseling for the gestational age provided. Continue routine care and follow up unless otherwise noted in visit notes/problem list details OB Flowsheet Initial Weight: 259 lb Date <del> </del> EGA Weight BP Urine Prot <del> </del> Glucose FHR FuHt Pres Dilation <del> </del> Effaced St Visit Note 08/29/24 <del> </del> 9w 3d 259 lb 6 oz (+6 oz) 121/78 <del> </del> 168 <del> </del> KW- CRL cons with dates. Declines NIPT. requesting 39 week RC/S 09/04/24 <del> </del> 10w 2d 255 lb 4 oz (-3 lb 12 oz) 113/73 Negative <del> </del> Negative 158 <del> </del> JV- follow up ER visit today. She possibly passed a kidney stone and feeling better until she had to lift someone heavy at work. FHT seen today on bedside scan. wants NIPT now. plans to return to do this. work restriction letter given. if pain returns will order a KUB 09/26/24 <del> </del> 13w 3d 258 lb (-16 oz) 123/73 Negative <del> </del> Negative 155 <del> </del> JV- no complaints. is going to medicaid office today and will let us know if approved. if approved will order mfm ultrasound and NIPT with new ob labs. 10/21/24 <del> </del> 17w 0d 258 lb 2 oz (-14 oz) 115/71 <del> </del> 148 <del> </del> MH-No VB. ?flutters. Reviewed nl PN labs. "Girl" Unable to void this appt. Nausea persists, zofran helpful 11/21/24 <del> </del> 21w 3d 259 lb (+0 oz) 113/68 Negative <del> </del> Negative 150 20 <del> </del> SM- SM- no vb cramping some intermittent left side pain suspect round ligament, UA and Culture 12/20/24 <del> </del> 25w 4d 262 lb (+3 lb) 114/78 <del> </del> 157 25 <del> </del> LC- no vb/cramping. good fm. no concerns today. 28 week labs ordered. 12/25/24 <del> </del> 26w 2d 259 lb 4 oz (+4 oz) 117/77 1+ <del> </del> Negative 146 0 <del> </del> JV- patient is being seen urgently today for pelvic pain. She woke up with pain that was moderate to severe JV- patient is being seen urgently today for pelvic pain. She woke up with pain that was moderate to severe. Her anatomy scan showed a cl of 4.4 cm. placenta posterior and not low lying. UA showed + 1 protein, no blood or ketones. Sending to to L&D for tocometer and possible CT or KUB to rule out kidney stone. 01/06/25 <del> </del> 28w 0d 260 lb 8 oz (+1 lb 8 oz) 108/73 <del> </del> 145 28 <del> </del> SM- no vb lof good fm no reuglar ctx desires steriliation 01/23/25 <del> </del> 30w 3d 264 lb 4 oz (+5 lb 4 oz) 112/73 <del> </del> 140 31 <del> </del> SM- no vb lof good fm no reuglar ctx 02/03/25 <del> </del> 32w 0d 264 lb 8 oz (+5 lb 8 oz) 118/81 Negative <del> </del> Negative 140 32 <del> </del> SM- no vb lof good fm n oruglar ctx co back alberto ntrouble sleeping some headaches 02/18/25 <del> </del> 34w 1d 270 lb 1 oz (+11 lb 1 oz) 106/59 <del> </del> 140 34 <del> </del> SM- no vb lof good fm no regular ctx 03/03/25 <del> </del> 36w 0d 267 lb 1 oz (+8 lb 1 oz) 123/72 <del> </del> 140 <del> </del> SM- no vb lof good fm no regular ctx, non reactive nst to l and d for bpp and monitoring 03/10/25 <del> </del> 37w 0d 270 lb 6 oz (+11 lb 6 oz) 129/80 <del> </del> 140 <del> </del> SM- no vb lof good fm n oregular ctx has uti 03/17/25 <del> </del> 38w 0d 272 lb 7 oz (+13 lb 7 oz) 112/77 Negative <del> </del> Negative 140 <del> </del> SM- having some intermittent headaches, dec fm at times- ordered bpp. sherry escotociart. labs done WNL yesterday reactive NST today and yesterday ROS Constitutional Constitutional: Reports systems reviewed and no addt'l complaints, except as documented Gastrointestinal Gastrointestinal: Denies bloating, constipation, cramping, diarrhea, nausea or vomiting Genitourinary Genitourinary: Reports other Details: Denies vaginal odor, vaginal bleeding, or vaginal discharge ; Denies difficulty urinating or flank pain NST FHR Rate Baby A Baseline: 140 Variability:: Moderate Accelerations:: 15 x 15 Decelerations:: None NST Reactive:: Yes FHR Category:: Category I Assessment & Plan (1) Headache: (2) History of delivery, currently : COMMENT: x1, Desires rpt csec with SM, c/s 03/24. (3) Obesity affecting : QUALIFIERS: Trimester: second trimester Obesity type affecting : unspecified obesity Qualified Code(s): O99.212 - Obesity complicating , second trimester COMMENT: BMI: 35.6; HgBA1C ordered w/NOB (4) Supervision of high-risk : QUALIFIERS: Trimester: second trimester Qualified Code(s): O09.92 - Supervision of high risk , unspecified, second trimester COMMENT: PRR, , LINDA 03/31/25 Girl, Rao PC: Babak, : Adolph (5) : QUALIFIERS: Weeks of gestation: 37 weeks Qualified Code(s): Z3A.37 - 37 weeks gestation of COMMENT: Discussed genetic/carrier testing - prior carrier done. Panorama low risk-female. unremarkable anatomy, consistent dates (6) Family history of autism: COMMENT: FOB sister PLAN: Plan normal PIH labs, blood pressures, and headache resolved ok to dc to home Charges/Coding Multi Select Codes Urinary/Genital Urinary/Genital CPT Codes: 32249-37 non-stress test Interp
--- NOTE | 2025-03-14 02:18 | OB.TRI.HP_ITS ---
HPI - General HPI Jun RODGERS, is a 25 y/o @ 37 weeks who presents to L&D with a headache. A PIH work up was ordered. during her triage stay a blood pressure in the range of 150/87 was noted, however that was the only elevated blood pressure. The patient has a pressure as low as 109/58. She was offered tylenol, benadryl, and zofran for her headache, which she accepted. She denied visual changes, epigastric pain, nausea, or vomiting. After monitoring and labs, her pressures were normal and her headache resolved. Maternal Data Information LINDA Calculator Estimated Delivery Date Method Current WG Current Estimate 03/31/25 LMP (Certain) 38w 1d Other Estimates 03/30/25 Ultrasound #1 38w 2d PFSH [facility] Medical History Chorioamnionitis delivery delivered Home Medications Medication Instructions Recorded Last Taken Type NK 03/17/25 Unknown History famotidine 20 mg tablet (Pepcid) 20 mg PO BID #60 tabs 03/17/25 Unknown Rx metoclopramide HCl 10 mg tablet 10 mg PO TID nausea #9 0 tabs 03/17/25 Unknown Rx (Reglan) Allergy/AdvReac Type Severity Reaction Status Date / Time No Known Allergies Allergy Verified 03/17/25 12:58 Surgical History History of section History of surgery Social History adopted: No household members: children and other details: mom housing: house number of children: 1 current occupational status: employed 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 @ [employer] current occupational exposures/hazards: No pets and animals: No history of recent travel: No sexually active: Yes Smoking Status: Former smoker second hand exposure: No alcohol intake: never substance use type: does not use well-balanced diet: daily or most days caffeine: Yes Type: carbonated beverages eating out: rarely or never during the past year weight has: remained stable what type of physical activity do you participate in: walking frequency: 1-2 times per week duration: < 15 minutes/day aly/judaism: None seatbelt use: always do you feel safe at home: Yes additional social history: : Max History 2 Elective abortions Hx Para 1 Spontaneous abortions Hx # Term Pregnancies 1 Ectopic pregnancies Hx # Pregnancies Multiple births # of living children 1 Past Pregnancies Del. Date Name GA/Weeks Outcome Route Bth Weight Infant Gen Labor Lgth Anesthesia Del Fidelatn Provider FOB 11/06/21 Babak 39 live - full term 8lbs 14oz Male epidural [facility] Renate Cervantes Max Delivery Date: 11/06/21 Last Updated by: Adri Kimble RN LTCS SM AOD 6 cm boy Babak IOL 41 Visit Details Expected Delivery Route/Plan Repeat C/S with SM Plans Covid status: [] Flu vaccine: [] Tdap vaccine: [] Rhogam: [] LARC form signed: [] Problem list reviewed and updated with the most current plan of care details and appropriate orders placed. Relevant counseling for the gestational age provided. Continue routine care and follow up unless otherwise noted in visit notes/problem list details OB Flowsheet Initial Weight: 259 lb Date - - - - - - - - - - - - - EGA Weight BP Urine Prot - - - - - - - - - - - - - Glucose FHR FuHt Pres Dilation - - - - - - - - - - - - - Effaced St Visit Note 08/29/24 - - - - - - - - - - - - - 9w 3d 259 lb 6 oz (+6 oz) 121/78 - - - - - - - - - - - - - 168 - - - - - - - - - - - - - KW- CRL cons wit h dates. Declines NIPT. requesting 39 week RC/S 09/04/24 - - - - - - - - - - - - - 10w 2d 255 lb 4 oz (-3 lb 12 oz) 113/73 Negative - - - - - - - - - - - - - Negative 158 - - - - - - - - - - - - - JV- follow up ER visit today. She possibly passed a kidney stone and feeling better until she had to lift someone heavy at work. FHT seen today on bedside scan. wants NIPT now. plans to return to do this. work restriction letter given. if pain returns will order a KUB 09/26/24 - - - - - - - - - - - - - 13w 3d 258 lb (-16 oz) 123/73 Negative - - - - - - - - - - - - - Negative 155 - - - - - - - - - - - - - JV- no complaint s. is going to medicaid office today and will let us know if approved. if approved will order mfm ultrasound and NIPT with new ob labs. 10/21/24 - - - - - - - - - - - - - 17w 0d 258 lb 2 oz (-14 oz) 115/71 - - - - - - - - - - - - - 148 - - - - - - - - - - - - - MH-No VB. ?flutt ers. Reviewed PN labs. "Girl" Unable to void this appt. Nausea persists, zofran helpful 11/21/24 - - - - - - - - - - - - - 21w 3d 259 lb (+0 oz) 113/68 Negative - - - - - - - - - - - - - Negative 150 20 - - - - - - - - - - - - - SM- SM- no vb cramping some inte rmittent left side pain suspect round ligament, UA and Culture 12/20/24 - - - - - - - - - - - - - 25w 4d 262 lb (+3 lb) 114/78 - - - - - - - - - - - - - 157 25 - - - - - - - - - - - - - LC- no vb/crampi ng. good fm. no concerns today. 28 week labs ordered. 12/25/24 - - - - - - - - - - - - - 26w 2d 259 lb 4 oz (+4 oz) 117/77 1+ - - - - - - - - - - - - - Negative 146 0 - - - - - - - - - - - - - JV- patient is geovanni latham seen urgently today for pelvic pain. She woke up with pain that was moderate to severe JV- patient is being seen ur gently today for pelvic pain. She woke up with pain that was moderate to severe. Her anatomy scan showed a cl of 4.4 cm. placenta posterior and not low lying. UA showed + 1 protein, no blood or ketones. Sending to to L&D for tocometer and possible CT or KUB to rule out kidney stone. 01/06/25 - - - - - - - - - - - - - 28w 0d 260 lb 8 oz (+1 lb 8 oz) 108/73 - - - - - - - - - - - - - 145 28 - - - - - - - - - - - - - SM- no vb lof go od fm no reuglar ctx desires steriliation 01/23/25 - - - - - - - - - - - - - 30w 3d 264 lb 4 oz (+5 lb 4 oz) 112/73 - - - - - - - - - - - - - 140 31 - - - - - - - - - - - - - SM- no vb lof go od fm no reuglar ctx 02/03/25 - - - - - - - - - - - - - 32w 0d 264 lb 8 oz (+5 lb 8 oz) 118/81 Negative - - - - - - - - - - - - - Negative 140 32 - - - - - - - - - - - - - SM- no vb lof go od fm n oruglar ctx co back alberto ntrouble sleeping some headaches 02/18/25 - - - - - - - - - - - - - 34w 1d 270 lb 1 oz (+11 lb 1 oz) 106/59 - - - - - - - - - - - - - 140 34 - - - - - - - - - - - - - SM- no vb lof go od fm no regular ctx 03/03/25 - - - - - - - - - - - - - 36w 0d 267 lb 1 oz (+8 lb 1 oz) 123/72 - - - - - - - - - - - - - 140 - - - - - - - - - - - - - SM- no vb lof go od fm no regular ctx, non reactive nst to l and d for bpp and monitoring 03/10/25 - - - - - - - - - - - - - 37w 0d 270 lb 6 oz (+11 lb 6 oz) 129/80 - - - - - - - - - - - - - 140 - - - - - - - - - - - - - SM- no vb lof go od fm n oregular ctx has uti 03/17/25 - - - - - - - - - - - - - 38w 0d 272 lb 7 oz (+13 lb 7 oz) 112/77 Negative - - - - - - - - - - - - - Negative 140 - - - - - - - - - - - - - SM- having some intermittent headaches, dec fm at times- ordered bpp. reglan, pepcid. labs done WNL yesterday reactive NST today and yesterday ROS Constitutional Constitutional: Reports systems reviewed and no addt'l complaints, except as documented Gastrointestinal Gastrointestinal: Denies bloating, constipation, cramping, diarrhea, nausea or vomiting Genitourinary Genitourinary: Reports other Details: Denies vaginal odor, vaginal bleeding, or vaginal discharge ; Denies difficulty urinating or flank pain NST FHR Rate Baby A Baseline: 140 Variability:: Moderate Accelerations:: 15 x 15 Decelerations:: None NST Reactive:: Yes FHR Category:: Category I Assessment & Plan (1) Headache: (2) History of delivery, currently : COMMENT: x1, Desires rpt csec with SM, c/s 03/24. (3) Obesity affecting : QUALIFIERS: Trimester: second trimester Obesity type affecting : unspecified obesity Qualified Code(s): O99.212 - Obesity complicating , second trimester COMMENT: BMI: 35.6; HgBA1C ordered w/NOB (4) Supervision of high-risk : QUALIFIERS: Trimester: second trimester Qualified Code(s): O09.92 - Supervision of high risk , unspecified, second trimester COMMENT: PRR, , LINDA 03/31/25 Girl, Rao PC: Babak, : Adolph (5) : QUALIFIERS: Weeks of gestation: 37 weeks Qualified Code(s): Z3A.37 - 37 weeks gestation of COMMENT: Discussed genetic/carrier testing - prior carrier done. Panorama low risk-female. unremarkable anatomy, consistent dates (6) Family history of autism: COMMENT: FOB sister PLAN: Plan normal PIH labs, blood pressures, and headache resolved ok to dc to home Charges/Coding Multi Select Codes Urinary/Genital Urinary/Genital CPT Codes: 47707-28 non-stress test Interp
[2025-03-14 02:29] VITALS: BP 130/67; PULSE 88
[2025-03-14 03:01] VITALS: BP 109/58; PULSE 93
[2025-03-14 03:30] LABS: Uric Acid 4.5 mg/dL (2.6-6.0)
[2025-03-14 03:38] VITALS: BP 131/75; PULSE 82
== END 2025-03-14 04:05 | disposition home or self-care (01) ==
LOC: WPOUT 23:26 → WP 23:26
PROVIDERS: Visit Provider Obstetrics & Gynecology
DX: O99.891 Other specified diseases and conditions complicating pregnancy (principal); R51.9 Headache, unspecified; O99.213 Obesity complicating pregnancy, third trimester; Z3A.37 37 weeks gestation of pregnancy
CPT/HCPCS: 59025; 59050; 82565; 82570; 84156; 84450; 84460; 84550; 85027; 99221; A4216; G0378; J2405

== ENCOUNTER 2025-03-16 17:50 | Outpatient (CLI) | payer MEDICAID, SELFPAY ==
[2025-03-16] VITALS (13 sets, daily range): BP systolic 114–142; BP diastolic 55–88; PULSE 69–86; RESP 16; TEMP 36.1; O2SAT 96; BMI 38.7
--- OUTSIDE RECORDS SUMMARY | 2025-03-16 18:07 | XMS RPT_ITS | CCD ---
Author Organization [facility] Care Team Providers Care Employment Educational Coord Name Role Phone DO Lukas Westbrook Referring Provider Unavailabl e Dr. Raven Modi Attending Provider [phone] Care Physician, No Primary Primary Care Provider Unavailable Care Physician, No Primary Referring Provider Un available Summer PRESIDENT ERGONOMIC CONSULTING, DANIEL Bean Attending Provider [phone] Dr. Renate Handley Attending Provider [phone] Dr. Raven Modi Other Provider Dr. Raven [...] available Shell Curry CNM Attending Provider [phone] Shell Curry CNM Referring Provider [phone] Dr. Christiano Villafuerte MD Emergency Provider Care [...] Physician, No Primary Primary Care Provider Unavailable aDriana Eli CNM Attending Provider Care Physician, No [...] Physician, No Primary Primary Care Unava ilable Rajanzeferino, Renate Attending Unavailable Marcanthony, Renate Referring Unavailable Care Physician, No Primary Primary Care Unava ilable Nkechie Raven Espinoza Attending Unavailabl e Care Physician, No Primary Primary Care Unava ilable Marcanthalex, Renate Attending Unavailable Marcanthalex, Renate Admitting Unavailable Care Physician, No Primary Primary Care Unava ilable Care Physician, No Primary Referring Unava ilable Billy, Renate Attending Unavailable Care Physician, No Primary Primary Care Unava ilable Marcanthony, Renate Attending Unavailable Marcanthony, Renate Referring Unavailable Care Physician, No Primary Primary Care Unava ilable Nkechie Olga, Raven Attending Unavailabl e Care Physician, No Primary Primary Care Unava ilable Shell Curry Attending Unavailable Patricio, Shell Referring Unavailable Care Physician, No Primary Primary Care Unava ilable Marcanthony, Renate Attending Unavailable Marcanthalex, Renate Referring Unavailable Care Physician, No Primary Primary Care Unava ilable Rajananthalex, Renate Attending Unavailable Marczeferino, Renate Referring Unavailable Care Physician, No Primary Referring Unava ilable Care Physician, No Primary Primary Care Unava ilable Nkechie Raven Espinoza Attending Unavailabl e Care Physician, No Primary Referring Unava ilable Care Physician, No Primary Primary Care Unava ilable Dariana Eli Attending Unavailable Care Physician, No Primary Referring Unava ilable Care Physician, No Primary Primary Care Unava ilable Shell Curry Attending Unavailable Marczeferino, Renate Attending Unavailable Care Physician, No Primary Primary Care Unava ilable Billy, Renate Referring Unavailable Care Physician, No Primary Primary Care Unava ilable Christiano Villafuerte Attending Unavailable Care Physician, No Primary Primary Care Unava ilable Franco Ortiz Attending Unavailable Care Physician, No Primary Primary Care Unava ilable Franklin PRESIDENT ERGONOMIC CONSULTING, [place] Attending Unavailable Franklin PRESIDENT ERGONOMIC CONSULTING, [place] Referring Unavailable Care Physician, No Primary Primary Care Unava ilable Heraclio Ornelas Attending Unavailable Care Physician, No Primary Primary Care Unava ilable Vande VelRaven morris Referring Unavailabl e Vande VelRaven morris Attending Unavailabl e Care Physician, No Primary Referring Unava ilable Care Physician, No Primary Primary Care Unava ilable Franklin PRESIDENT ERGONOMIC CONSULTING, [place] Attending Unavailable Care Physician, No Primary Referring Unava ilable Care Physician, No Primary Primary Care Unava ilable Nkechie Raven Espinoza Attending Unavailabl e Care Physician, No Primary Primary Care Unava ilable Care Physician, No Primary Referring Unava ilable Renate Handley Attending Unavailable Care Physician, No Primary Primary Care Unava ilable Nkechie Velalexandra, Raven Referring Unavailabl e Vande Velde, Raven Attending Unavailabl e Care Physician, No Primary Referring Unava ilable Care Physician, No Primary Primary Care Unava ilable Renate Handley Attending Unavailable Care Physician, No Primary Primary Care Unava ilable Summer PRESIDENT ERGONOMIC CONSULTING, [place] Attending Unavailable Care Physician, No Primary Referring Unava ilable Care Physician, No Primary Primary Care Unava ilable Nkechie Olga, Raven Attending Unavailabl e Care Physician, No Primary Referring Unava ilable Care Physician, No Primary Primary Care Unava ilable Renate Handley Attending Unavailable Care Physician, No Primary Primary Care Unava ilable Care Physician, No Primary Referring Unava ilable Renate Handley Attending Unavailable Renate Handley Attending Unavailable Care Physician, No Primary Referring Unava ilable Care Physician, No Primary Primary Care Unava ilable Care Physician, No Primary Primary Care Unava ilable Renate Handley Consulting Unavailable RajananthRenate johnson Attending Unavailable Renate Handley Referring Unavailable Care Physician, No Primary Primary Care Unava ilable Adri Kimble Attending Unavailable Renate Handley Attending Unavailable Care Physician, No Primary Referring Unava ilable Care Physician, No Primary Primary Care Unava ilable Care Physician, No Primary Primary Care Unava ilable Raven Modi Attending Unavailabl e Vande Velde, Raven Referring Unavailabl e Vande Velde, Raven Consulting Unavailabl e Care Physician, No Primary Primary Care Unava ilable Renate Handley Attending Unavailable Renate Handley Referring Unavailable Renate Handley Consulting Unavailable Renate Handley Attending Unavailable Care Physician, No Primary Primary Care Unava ilable MarcanthRenate johnson Consulting Unavailable Renate Handley Referring Unavailable Renate Handley Attending Unavailable Care Physician, No Primary Referring Unava ilable Care Physician, No Primary Primary Care Unava ilable Medications Current Medications Medication Drug Class(es) Dates [...] 28, 2024 12:00am December 25, 2024 9:57am [place] (Nk) (9 sources) Start: 01-23-2025 [place] (Nk) A ctive January 23, 2025 12:00am Start: 08-30-2024 [place] (Nk) A ctive August 30, 2024 1:00am Start: 08-30-2024 [place] (Nk) A ctive August 30, 2024 12:00am Start: 08-15-2023 [place] (Nk) A ctive August 15, 2023 12:00am Completed/Discontinued Medications Medication Drug Class(es) Dates Sig (Normalized) Sig (Original) acetaminophen 325 mg oral tablet (20 sources) Start: End: take 1 tablet by mouth once as [...] Encounter for delivery without indication Fluad Quad 8597-4777(65yr up)(PF) 60 mcg (15 mcg x 4)/0.5mL IM syringe (flu vac (1 source) Start: 1 End: 1 inject 1 mL by intramuscular injection once Fluad Quad 2453-9947(65yr up)(PF) 60 mcg (15 mcg x 4)/0.5mL [...] 150 MG/ML syringe Discontinued 150 mg IM .[id number] February 18, 2019 12:00am March 05, 2021 9:13am Start: 02-18-2019 End: 03-05-2021 inject 150 mg by intramuscular injection every three months Medroxyprogesterone Discontinued 150 MG IM .[id number] February 17, 2019 11:00pm March 05, 2021 [...] conditions, unspecified trimester] Onset: 01-07-2025 Episodic Other complications of (2 sources) Supervision of high risk , unspecified, second trimester; Translations: [Supervision of high risk , unspecified, second trimester] Onset: 01-07-2025 Episodic Other female genital [...] on genetic NIPT low risk boy. c stephen reviewed. ntd screen neg. Anatomy US normal. [...] Name Value Interpretation Reference Range Facil ity AST(SGOT)on 03-14-2025 AST [Catalytic activity/Vol] 21 U/L Normal <=[address] [facility] Comment on above: Performed By: #### L 100.0100, L501.9985, L3890.6301, L7400.0353, L3890.6102, L509.8002, BTS, M100.2200, L3890.6006, L7000.1800, L509.4006 #### [facility] [address] [place], [place], [id number] Alanine Aminotransferas (SGP T)on 03-14-2025 ALT [Catalytic activity/Vol] 14 U/L Normal <=[address] [facility] Comment on above: Performed By: #### L 100.0100, L501.9985, L3890.6301, L7400.0353, L3890.6102, L509.8002, BTS, M100.2200, L3890.6006, L7000.1800, L509.4006 #### [facility] [address] [place], [address] CBC-Complete Blood Cnt No ffon 03-14-2025 Erythrocyte distribution width (RBC) [Ratio] 12.5 % Normal 11.6-14.[address] [facility] Comment on above: Performed By: #### L 100.0100, L501.9985, L3890.6301, L7400.0353, L3890.6102, L509.8002, BTS, M100.2200, L3890.6006, L7000.1800, L509.4006 #### [facility] [address] [place], [address] Hematocrit (Bld) [Volume fraction] 34.7 % Low 37-[address] [facility] Comment on above: Performed By: #### L 100.0100, L501.9985, L3890.6301, L7400.0353, L3890.6102, L509.8002, BTS, M100.2200, L3890.6006, L7000.1800, L509.4006 #### [facility] [address] [place], [address] Hemoglobin (Bld) [Mass/Vol] 12.2 g/dL Normal 12.0-15.[address] [facility] Comment on above: Performed By: #### L 100.0100, L501.9985, L3890.6301, L7400.0353, L3890.6102, L509.8002, BTS, M100.2200, L3890.6006, L7000.1800, L509.4006 #### [facility] [address] [place], [address] MCH (RBC) [Entitic mass] 31.7 pg Normal 27.0-32.[address] [facility] Comment on above: Performed By: #### L 100.0100, L501.9985, L3890.6301, L7400.0353, L3890.6102, L509.8002, BTS, M100.2200, L3890.6006, L7000.1800, L509.4006 #### [facility] [address] [place], [address] MCHC (RBC) [Mass/Vol] 35.2 g/dL Normal 32-36 [facility] Comment on above: Performed By: #### L 100.0100, L501.9985, L3890.6301, L7400.0353, L3890.6102, L509.8002, BTS, M100.2200, L3890.6006, L7000.1800, L509.4006 #### [facility] [address] [place], [address] MCV (RBC) [Entitic vol] 90.1 fL Normal 81-99 [facility] Comment on above: Performed By: #### L 100.0100, L501.9985, L3890.6301, L7400.0353, L3890.6102, L509.8002, BTS, M100.2200, L3890.6006, L7000.1800, L509.4006 #### [facility] [address] [place], [address] Platelet mean volume (Bld) [Entitic vol] 11.8 fL Normal 6.2-12.[address] [facility] Comment on above: Performed By: #### L 100.0100, L501.9985, L3890.6301, L7400.0353, L3890.6102, L509.8002, BTS, M100.2200, L3890.6006, L7000.1800, L509.4006 #### [facility] [address] [place], [address] Platelets (Bld) [#/Vol] 203 10*3/uL Normal 150-[address] [facility] Comment on above: Performed By: #### L 100.0100, L501.9985, L3890.6301, L7400.0353, L3890.6102, L509.8002, BTS, M100.2200, L3890.6006, L7000.1800, L509.4006 #### [facility] [address] [place], [address] RBC (Bld) [#/Vol] 3.85 10*6/uL Low 4.2-5.4 [facility] Comment on above: Performed By: #### L 100.0100, L501.9985, L3890.6301, L7400.0353, L3890.6102, L509.8002, BTS, M100.2200, L3890.6006, L7000.1800, L509.4006 #### [facility] [address] [place], [address] RDW SD 40.4 fl Normal 35.1-43.[address] [facility] Comment on above: Performed By: #### L 100.0100, L501.9985, L3890.6301, L7400.0353, L3890.6102, L509.8002, BTS, M100.2200, L3890.6006, L7000.1800, L509.4006 #### [facility] [address] [place], [address] WBC (Bld) [#/Vol] 10.1 10*3/uL Normal 4.4-11.0 [facility] Comment on above: Performed By: #### L 100.0100, L501.9985, L3890.6301, L7400.0353, L3890.6102, L509.8002, BTS, M100.2200, L3890.6006, L7000.1800, L509.4006 #### [facility] [address] [place], [address] Protein+Creatinine Ratio,Uri neon 03-14-2025 PROT:CRE RATIO 98 mg/g CRE Normal 0-[address] [facility] Comment on above: Performed By: #### L 100.0100, L501.9985, L3890.6301, L7400.0353, L3890.6102, L509.8002, BTS, M100.2200, L3890.6006, L7000.1800, L509.4006 #### [facility] [address] [place], [address] Protein (U) [Mass/Vol] 22.2 mg/dL High 0.0-12.0 [facility] Comment on above: Performed By: #### L 100.0100, L501.9985, L3890.6301, L7400.0353, L3890.6102, L509.8002, BTS, M100.2200, L3890.6006, L7000.1800, L509.4006 #### [facility] [address] [place], [address] UR CREAT 227.00 mg/dL High 28.00-217.[address] [facility] Comment on above: Performed By: #### L 100.0100, L501.9985, L3890.6301, L7400.0353, L3890.6102, L509.8002, BTS, M100.2200, L3890.6006, L7000.1800, L509.4006 #### [facility] [address] [place], [address] Serum Creatinine AND GFRon 0 03-14-2025 Creatinine [Mass/Vol] 0.55 mg/dL Low 0.70-1.20 [facility] Comment on above: Performed By: #### L 100.0100, L501.9985, L3890.6301, L7400.0353, L3890.6102, L509.8002, BTS, M100.2200, L3890.6006, L7000.1800, L509.4006 #### [facility] [address] [place], [place], [id number] (745) ECRCL 227.61 ml/min Normal 50-[address] [facility] Comment on above: Performed By: #### L 100.0100, L501.9985, L3890.6301, L7400.0353, L3890.6102, L509.8002, BTS, M100.2200, L3890.6006, L7000.1800, L509.4006 #### [facility] [address] [place], [place], [id number] GFR/1.73 sq M.predicted among non-blacks MDRD (S/P/Bld) [Vol rate/Area] 132 mL/min/{1.73_m2} Normal >[address] [facility] Comment on above: Result Comment: mL/m in/1.73m2 CKD-EPI Creatinine Equation (2020) Performed By: #### L 100.0100, L501.9985, L3890.6301, L7400.0353, L3890.6102, L509.8002, BTS, M100.2200, L3890.6006, L7000.1800, L509.4006 #### [facility] [address] [place], [place], [address] Uric Acidon 03-14-2025 URIC 4.5 mg/dL Normal 2.6-6.[address] [facility] Comment on above: Result Comment: The drugs N-Acetylcysteine and Metamizole may falsely depress this assay. Performed By: #### L 100.0100, L501.9985, L3890.6301, L7400.0353, L3890.6102, L509.8002, BTS, M100.2200, L3890.6006, L7000.1800, L509.4006 #### [facility] [address] [place], [address] Urine Cultureon 03-11-2025 URC Below infection level. Mixed Gram Positive Organisms [place] Count 1000-10,000 MIXC Mixed contaminants. Submit a new specimen if indicated. Normal [facility] Comment on above: Performed By: #### M 100.3450 ####[facility] [address] [place], [place], [address] [facility] Office Visit Reporton 03-10-2025 [facility] Office Visit Report [facility] [address], [address] [place] [address] OFFICE VISIT Date of Service: 03/10/25 MR#: [id number] Acct: [id number] Name: QUAN RODGERS Rep #: [id number] : 2000 Provider: Dr. Renate yi MD Age/Sex: 25/F Location: [facility] Status: Signed Intake Vital Signs 01/06/25 14:59 02/03/25 10:41 02/13/25 11:44 03/07/25 21:37 03/10/25 13:06 Height 5 ft 10 in 5 ft 10 in 5 ft 10 in 5 ft 11 in 5 ft 11 in Weight: 270 lb 6 oz BMI 37.7 BP 129/80 H Intake Visit Reasons: 37 wk ob/nst *SM Csection Senior Analyst Developer Required: No Is patient in pain?: No [...] times per week duration: < 15 minutes/day aly/caodaism: None seatbelt use: always do you feel [...] - full term 8lbs 14oz Male epidural [facility] Billy Max Delivery Date: 11/06/21 Last Updated by: [...] compl aints. (more content not included)... Normal [facility] OB Triage Progress Noteon OB Triage Progress Note [facility] Medical Records Department [address] [place] [address] OB Triage Progress Note 03/08/25 0022 MR#: [id number] Acct: [id number] Name: QUAN RODGERS [facility] Rep #: [id number] : 2000 25 From: Renate Handley MD PCP: Care Physician,No Primary Status:DEP CLI Y DOS: Location: WPOUT Progress Notes Date of Service: 03/08/25 Progress Note: Patient presents for triage evaluation secondary to virla symptoms FHT: 140 Moderate variability reactive no decelerations category I tracing [place]: irregular Contractions Assessment and plan: viral symptoms 36 weeks and uti Reactive NST, reassuring maternal and status patient discharged to home to follow-up as scheduled. See problem list details for additional plan information. Laboratory Studies: Laboratory Tests 03/07/25 Range/Units 22:45 Urine Color Yellow (Yellow) Urine Clarity Clear (Clear) Urine pH 6.0 (5.0 - 8.0) Ur Specific Temperance 1.025 (1.002-1.030) Urine Protein 30 H (Negative) [...] 0 SEEN ( Charges/Coding Procedures Urinary/Genital 52xxx-59xxx: 01323-17 non-stress test Interp 03/08/25 0025 Date Renate Handley MD Cosigner Signature (if applicable): Date ___ CC: Dr. Renate Handley MD; No Primary Care Physician Signed Normal [facility] Bilirubin Test strip Ql (U)O rdered By: Renate Handley on 03-07-2025 Bilirubin Ql (U) Negative Negative [facility] Ketones Test strip Ql (U)Ord ered By: Renate Handley on 03-07-2025 Ketones Ql (U) Negative Negative [facility] Microscopic analysis of urin e for red blood cells (RBC)Ordered By: Renate Handley on 03-07-2025 Microscopic analysis of urine for red blood cells (RBC) 0 SEEN /hpf 0-[address] [facility] Mucus LM Ql (Urine sed)Order ed By: Renate Handley on 03-07-2025 Mucus Ql (Urine sed) 0 SEEN /hpf [facility] Nitrite Test strip Ql (U)Ord ered By: Renate Handley on 03-07-2025 Nitrite Ql (U) Negative Negative [facility] Protein Test strip Ql (U)Ord ered By: Renate Handley on 03-07-2025 Protein Ql (U) 30 mg/dl High Negative [facility] Squamous epithelial cells de tection in urine sediment by light microscopyOrdered By: Renate Handley on 03-07-2025 Epithelial cells.squamous LM Ql (Urine sed) 5-10 SEEN /hpf 5-[address] [facility] Urinalysis, Completeon 03-07 BACTERIA 3+ /hpf Normal None Seen [facility] Comment on above: Order Comment: MICHAEL CTOR TO SPECIFY Performed By: #### L 400.0001 ####[facility] [address] [place], [address] EPI,SQUAMOUS 5-10 SEEN Normal 5-[address] [facility] Comment on above: Order Comment: MICHAEL CTOR TO SPECIFY Performed By: #### L 400.0001 ####[facility] [address] [facility] [address] WBC 0-5 SEEN Normal 0-[address] [facility] Comment on above: Order Comment: MICHAEL CTOR TO SPECIFY Performed By: #### L 400.0001 ####[facility] [address] [place], [address] Mucus Ql (Urine sed) 0 SEEN Normal [facility] Comment on above: Order Comment: MICHAEL CTOR TO SPECIFY Performed By: #### L 400.0001 ####[facility] [address] [place], [address] RBC 0 SEEN Normal 0-[address] [facility] Comment on above: Order Comment: MICHAEL CTOR TO SPECIFY Performed By: #### L 400.0001 ####[facility] [address] [place], [address] Urine clarityOrdered By: Eric Handley on 03-07-2025 Clarity (U) Clear Clear [facility] Urine color determinationOrd ered By: Renate Handley on 03-07-2025 Color (U) Yellow Yellow [facility] Urine glucose detectionOrder ed By: Renate Handley on 03-07-2025 Glucose Ql (U) Normal mg/dl Normal [facility] Urine leukocyte esterase det ection by dipstickOrdered By: Renate Handley on 03-07-2025 Leukocyte esterase Test strip Ql (U) 25 /ul High Negative [facility] Urine pHOrdered By: Renate sahu on 03-07-2025 pH (U) 6.0 [pH] 5.0 - 8.[address] [facility] Urine sediment bacteria coun t by microscopy (number/high power field)Ordered By: Renate Handley on 03-07-2025 Bacteria LM.HPF (Urine sed) [#/Area] 3 /[HPF] None Seen [facility] Urine specific gravity measu rementOrdered By: Renate Handley on 03-07-2025 Specific gravity (U) [Rel density] 1.025 1.002-1.[address] [facility] Urine urobilinogen measureme ntOrdered By: Renate Handley on 03-07-2025 Urobilinogen Ql (U) Normal mg/dl Normal [facility] White blood cell countOrdere d By: Renate Handley on 03-07-2025 White blood cell count 0-5 SEEN /hpf 0-[address] [facility] Rule out Beta Strep (Grp. B) on 03-05-2025 ZIA Group B Beta Streptococcus is not isolated. Normal [facility] Comment on above: Performed By: #### L 900.0098 #### [facility] [address] [place], [place], [address] Group B Strep DNA By PCRon 0 03-03-2025 GBS DNA ASSAY Normal Negative [facility] Comment on above: Result Comment: DUPL ICATE ORDER Performed By: #### L 8200.0000 ####[facility] [address] [place], [address] [facility] Comment on above: Result Comment: DUPL ICATE ORDER Performed By: #### L 8200.0000 ####[facility] [address] [place], [address] PROBE CHECK Normal [facility] Comment on above: Result Comment: DUPL ICATE ORDER Performed By: #### L 8200.0000 ####[facility] [address] [place], [address] [facility] Comment on above: Result Comment: DUPL ICATE ORDER Performed By: #### L 8200.0000 ####[facility] [address] [place], [address] SWAB TYPE IS: Normal [facility] Comment on above: Result Comment: DUPL ICATE ORDER Performed By: #### L 8200.0000 ####[facility] [address] [place], [address] M8200.0100on 03-03-2025 M8200.[address] [facility] Comment on above: Performed By: #### L 100.0100, L501.9985, L3890.6301, L7400.0353, L3890.6102, L509.8002, BTS, M100.2200, L3890.6006, L7000.1800, L509.4006 #### [facility] [address] [place], [address] OB Biophysical Prof W/O NSTo n 03-03-2025 OB Biophysical Prof W/O NST [facility] [address] [place] [address] OB Biophysical Prof W/O NST MR#: [id number] Acct: [id number] Name: QUAN RODGERS KELTON Rep #: [id number] : 2000 F 25 From: Oneida Huggins PCP: Care Physician,No Primary Status: REG CLI Study: OB Biophysical Prof W/O NST Date of Exam: 02/17 Exam# [id number] Ordering Dr: Renate Handley PROCEDURE: OB BIOPHYSICAL [...] score of 8 of 8. Reading [id number] CC: Dr. Renate Handley MD; No Primary Care Physician Label Remover: Signed Normal [facility] OB Triage Progress Noteon OB Triage Progress Note [facility] Medical Records Department [address] [place] [address] OB Triage Progress Note 03/03/25 1744 MR#: [id number] Acct: [id number] Name: QUAN RODGERS [place]EL[place] Rep #: [id number] : 2000 25 From: Renate Handley MD PCP: Care Physician,No Primary Status:DEP CLI Y DOS: Location: WPOUT Progress Notes Date of Service: 03/03/25 Progress Note: seen for nonreactive NST in the office 36 weeks , 01/31 bpp an dreactive NST now, reassuring dc home fu as scheudled. Laboratory Studies: Laboratory Tests 03/03/25 Range/Units 15:35 Group B Strep DNA Cancelled Specimen Comment Cancelled 03/04/25 9381 Date Renate Handley MD Cosigner Signature (if applicable): Date ___ CC: Dr. Renate Handley MD; No Primary Care Physician Signed Normal [facility] Office Visit Reporton 03-03-2025 Metal [facility] Office Visit Report [facility] [address], [address] [place] [address] OFFICE VISIT Date of Service: 03/03/25 MR#: [id number] Acct: [id number] Name: QUAN RODGERS KELTON Rep #: [id number] : 2000 Provider: Dr. 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 ??-???-???-???-??? -???-???-???- Effaced St Visit Note 03/06/25 -???-???-???-???-? ??-???-???-???-??? -???-???-???- 9w 3d 259 lb [...] ??-???-???-???-??? -???-???-???- (more content not included)... Normal [facility] Screening beta-hemolytic Str eptococcus cultureOrdered By: Renate Handley on 03-03-2025 Beta-hemolytic Streptococcus culture Group B Beta Streptococcus is not isolated. [facility] Visit Reporton 02-18-2025 [facility] Office Visit Report [facility] [address], [address] [place] [address] OFFICE VISIT Date of Service: 02/18/25 MR#: [id number] Acct: [id number] Name: QUAN RODGERS KELTON Rep #: [id number] : 2000 Provider: Dr. 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 ??-???- (more content not included)... Normal [facility] Urine Cultureon 02-16-2025 [facility] Urine Culture Staphylococcus aureus [place] Count 1000-10,000 Mixed Gram Positive Organisms Mixed [...] S Vancomycin Islt CORRINA <=0.[address] [facility] Comment on above: Performed By: #### L 100.0100, L501.9985, L3890.6301, L7400.0353, L3890.6102, L509.8002, BTS, M100.2200, L3890.6006, L7000.1800, L509.4006 #### [facility] [address] [place], [address] Amorphous sediment detection in urine sediment by light microscopyOrdered By: Renate Handley on 02-13-2025 Amorphous sediment LM Ql (Urine sed) 1+ [facility] Bilirubin Test strip Ql (U)O rdered By: Renate Handley on 02-13-2025 Bilirubin Ql (U) Negative Negative [facility] CBC-Complete Blood Cnt No Di ffon 02-13-2025 HCT Normal 37-[address] [facility] Comment on above: Result Comment: Canc elled via OM: Ordered/Entered in error Performed By: #### L 100.0500, L501.0900 ####[facility] [address] [place], [address] HGB Normal 12.0-15.[address] [facility] Comment on above: Result Comment: Canc elled via OM: Ordered/Entered in error Performed By: #### L 100.0500, L501.0900 ####[facility] [address] [place], [address] MCH Normal 27.0-32.[address] [facility] Comment on above: Result Comment: Canc elled via OM: Ordered/Entered in error Performed By: #### L 100.0500, L501.0900 ####[facility] [address] [place], [address] MCHC Normal 32-[address] [facility] Comment on above: Result Comment: Canc elled via OM: Ordered/Entered in error Performed By: #### L 100.0500, L501.0900 ####[facility] [address] [place], [address] MCV Normal 81-[address] [facility] Comment on above: Result Comment: Canc elled via OM: Ordered/Entered in error Performed By: #### L 100.0500, L501.0900 ####[facility] [address] [place], [address] PLT Normal 150-[address] [facility] Comment on above: Result Comment: Canc elled via OM: Ordered/Entered in error Performed By: #### L 100.0500, L501.0900 ####[facility] [address] [place], [address] RBC Normal 4.2-5.[address] [facility] Comment on above: Result Comment: Canc elled via OM: Ordered/Entered in error Performed By: #### L 100.0500, L501.0900 ####[facility] [address] [place], [address] RDW CV Normal 11.6-14.[address] [facility] Comment on above: Result Comment: Canc elled via OM: Ordered/Entered in error Performed By: #### L 100.0500, L501.0900 ####[facility] [address] [place], [address] RDW SD Normal 35.1-43.[address] [facility] Comment on above: Result Comment: Canc elled via OM: Ordered/Entered in error Performed By: #### L 100.0500, L501.0900 ####[facility] [address] [place], [address] WBC Normal 4.4-11.[address] [facility] Comment on above: Result Comment: Canc elled via OM: Ordered/Entered in error Performed By: #### L 100.0500, L501.0900 ####[facility] [address] [place], [address] Ketones Test strip Ql (U)Ord ered By: Renate Handley on 02-13-2025 Ketones Ql (U) Negative Negative [facility] Microscopic analysis of urin e for red blood cells (RBC)Ordered By: Renate Handley on 02-13-2025 Microscopic analysis of urine for red blood cells (RBC) 0-5 SEEN /hpf 0-[address] [facility] Mucus LM Ql (Urine sed)Order ed By: Renate Handley on 02-13-2025 Mucus Ql (Urine sed) 0 SEEN /hpf [facility] Nitrite Test strip Ql (U)Ord ered By: Renate Handley on 02-13-2025 Nitrite Ql (U) Negative Negative [facility] OB Triage Progress Noteon OB Triage Progress Note [facility] Medical Records Department [address] [place] [address] OB Triage Progress Note 02/13/25 1342 MR#: [id number] Acct: [id number] Name: QUAN RODGERS KELTON Rep #: [id number] : 2000 25 From: Renate Handley MD PCP: Care Physician,No Primary Status:DEP CLI Y DOS: Location: [facility]OUT Progress Notes Date of Service: 02/13/25 Progress Note: Patient presents for triage evaluation secondary to false labor FHT: 140q 3-5 Moderate variability reactive no decelerations category I tracing [place]: occasional Contractions Assessment and plan: 33 week threatened labor no cervical dilation Reactive NST, reassuring maternal and status patient discharged to home to follow-up as scheudled. See problem list details for additional plan information. Charges/Coding Procedures Urinary/Genital 52xxx-59xxx: 36975-27 non-stress test Interp 02/14/25 0836 Date Renate Marcanthony MD Cosigner Signature (if applicable): Date ___ CC: Dr. Renate Handley MD; No Primary Care Physician Signed Normal [facility] Protein Test strip Ql (U)Ord ered By: Renate Handley on 02-13-2025 Protein Ql (U) 15 mg/dl High Negative [facility] Protein+Creatinine Ratio,Uri neon 02-13-2025 PROT:CRE RATIO Normal 0-[address] [facility] Comment on above: Result Comment: Canc elled via OM: Ordered/Entered in error Performed By: #### L 100.0500, L501.0900 ####[facility] [address] [place], [address] PROTEIN,UR.RAN. Normal 0.0-12.[address] [facility] Comment on above: Result Comment: Canc elled via OM: Ordered/Entered in error Performed By: #### L 100.0500, L501.0900 ####[facility] [address] [place], [address] UR CREAT Normal 28.00-217.[address] [facility] Comment on above: Result Comment: Canc elled via OM: Ordered/Entered in error Performed By: #### L 100.0500, L501.0900 ####[facility] [address] [place], [address] Squamous epithelial cells de tection in urine sediment by light microscopyOrdered By: Renate Handley on 02-13-2025 Epithelial cells.squamous LM Ql (Urine sed) 0-5 SEEN /hpf 5-[address] [facility] Transitional cells detection in urine sediment by light microscopyOrdered By: Renate Handley on 02-13-2025 Transitional cells LM Ql (Urine sed) 0-5 SEEN /hpf 0-[address] [facility] Urinalysis, Completeon 02-13 AMORPHOUS 1+ Normal [facility] Comment on above: Order Comment: CLEAN CATCH Performed By: #### L 100.0100, L501.9985, L3890.6301, L7400.0353, L3890.6102, L509.8002, BTS, M100.2200, L3890.6006, L7000.1800, L509.4006 #### [facility] [address] [place], [address] BACTERIA 1+ /hpf Normal None Seen [facility] Comment on above: Order Comment: CLEAN CATCH Performed By: #### L 100.0100, L501.9985, L3890.6301, L7400.0353, L3890.6102, L509.8002, BTS, M100.2200, L3890.6006, L7000.1800, L509.4006 #### [facility] [address] [place], [place], [id number] EPI,SQUAMOUS 0-5 SEEN Normal 5-[address] [facility] Comment on above: Order Comment: CLEAN CATCH Performed By: #### L 100.0100, L501.9985, L3890.6301, L7400.0353, L3890.6102, L509.8002, BTS, M100.2200, L3890.6006, L7000.1800, L509.4006 #### [facility] [address] [place], [address] EPI,TRANSITION 0-5 SEEN Normal 0-[address] [facility] Comment on above: Order Comment: CLEAN CATCH Performed By: #### L 100.0100, L501.9985, L3890.6301, L7400.0353, L3890.6102, L509.8002, BTS, M100.2200, L3890.6006, L7000.1800, L509.4006 #### [facility] [address] [place], [address] RBC 0-5 SEEN Normal 0-[address] [facility] Comment on above: Order Comment: CLEAN CATCH Performed By: #### L 100.0100, L501.9985, L3890.6301, L7400.0353, L3890.6102, L509.8002, BTS, M100.2200, L3890.6006, L7000.1800, L509.4006 #### [facility] [address] [place], [place], [address] WBC 0-5 SEEN Normal 0-[address] [facility] Comment on above: Order Comment: CLEAN CATCH Performed By: #### L 100.0100, L501.9985, L3890.6301, L7400.0353, L3890.6102, L509.8002, BTS, M100.2200, L3890.6006, L7000.1800, L509.4006 #### [facility] [address] [place], [place], [address] Mucus Ql (Urine sed) 0 SEEN Normal [facility] Comment on above: Order Comment: CLEAN CATCH Performed By: #### L 100.0100, L501.9985, L3890.6301, L7400.0353, L3890.6102, L509.8002, BTS, M100.2200, L3890.6006, L7000.1800, L509.4006 #### [facility] [address] [place], [place], [address] Urine clarityOrdered By: Eric Handley on 02-13-2025 Clarity (U) Sl Cldy Clear [facility] Urine color determinationOrd ered By: Renate Handley on 02-13-2025 Color (U) Straw Yellow [facility] Urine cultureOrdered By: Eric Handley on 02-13-2025 Bacteria identified Cx Nom (U) Staphylococcus aureus Abnormal [facility] Bacteria identified Cx Nom (U) Positive Abnormal [facility] Urine glucose detectionOrder ed By: Renate Handley on 02-13-2025 Glucose Ql (U) Normal mg/dl Normal [facility] Urine leukocyte esterase det ection by dipstickOrdered By: Renate Handley on 02-13-2025 Leukocyte esterase Test strip Ql (U) Negative Negative [facility] Urine pHOrdered By: Renate sahu on 02-13-2025 pH (U) 7.0 [pH] 5.0 - 8.[address] [facility] Urine sediment bacteria coun t by microscopy (number/high power field)Ordered By: Renate Handley on 02-13-2025 Bacteria LM.HPF (Urine sed) [#/Area] 1 /[HPF] None Seen [facility] Urine specific gravity measu rementOrdered By: Renate Handley on 02-13-2025 Specific gravity (U) [Rel density] 1.015 1.002-1.[address] [facility] Urine urobilinogen measureme ntOrdered By: Renate Handley on 02-13-2025 Urobilinogen Ql (U) Normal mg/dl Normal [facility] White blood cell countOrdere d By: Renate Handley on 02-13-2025 White blood cell count 0-5 SEEN /hpf 0-[address] [facility] OB Limited With Biometricson 02-07-2025 OB Limited With Biometrics [facility] [address] [place] [address] OB Limited With Biometrics MR#: [id number] Acct: [id number] Name: [facility] KELTON Rep #: [id number] : 2000 F 25 From: Royce krueger MD PCP: Care Physician,No Primary Status: REG CLI Study: OB Limited With Biometrics Date of Exam: 02/07 Exam# [id number] Ordering Dr: Renate Handley PROCEDURE: OB LIMITED [...] fall within normal expected range. Reading Location: [place] [address] CC: Dr. Renate Handley MD; No Primary Care Physician Label Remover: Signed Normal [facility] - Chemistry and C hemistry - challengeOrdered By: Renate Handley on 2025 Glucose Ql (U) Negative [facility] - UrinalysisOrder ed By: Rneate Handley on 2025 Protein Ql (U) Negative [facility] Office Visit Reporton 2025 [facility] Office Visit Report [facility] [address], [address] [place] [address] OFFICE VISIT Date of Service: 02/03/25 MR#: [id number] Acct: [id number] Name: QUAN RODGERS KELTON Rep #: [id number] : 2000 Provider: Dr. 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 Normal [facility] Office Visit Reporton 01-23-2025 Metal [facility] Office Visit Report [facility] [address], [address] [place] [address] OFFICE VISIT Date of Service: 01/23/25 MR#: [id number] Acct: [id number] Name: QUAN RODGERS Rep #: [id number] : 2000 Provider: Dr. 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 Normal [facility] Absolute lymphocyte countOrd ered By: Dariana Eli on 01-06-2025 Lymphocytes Auto (Unsp spec) [#/Vol] 1.74 10*3/uL 0.83-4.[address] [facility] Absolute neutrophil countOrd ered By: Dariana Eli on 01-06-2025 Neutrophils (Bld) [#/Vol] 8.0 10*3/uL High 2.0-7.[address] [facility] Automated blood erythrocyte countOrdered By: Dariana Eli on 01-06-2025 RBC (Bld) [#/Vol] 3.97 10*6/uL Low 4.2-5.4 [facility] Comment on above: Performed By: #### L 100.0100, L509.8002, L501.0250, L3890.6006 ####[facility] [address] [place], [place], [address] Automated blood hematocrit ( percentage)Ordered By: Dariana Eli on 01-06-2025 Hematocrit (Bld) [Volume fraction] 36.3 % Low 37-[address] [facility] Comment on above: Performed By: #### L 100.0100, L509.8002, L501.0250, L3890.6006 ####[facility] [address] [place], [address] Automated lymphocyte count a s percentage of total leukocytesOrdered By: Dariana Eli on 01-06-2025 Lymphocytes/100 WBC Auto (Unsp spec) 16.1 % Low -[address] [facility] Basophil percentageOrdered B y: Dariana Eli on 01-06-2025 Basophils/100 WBC (Bld) 0.3 % Normal 0-1 [facility] Comment on above: Performed By: #### L 100.0100, L509.8002, L501.0250, L3890.6006 ####[facility] [address] [place], [address] CBC W/Diff, Automatedon 12-24 Absolute Lymph 1.74 X10 3/uL Normal 0.83-4.[address] [facility] Comment on above: Performed By: #### L 100.0100, L509.8002, L501.0250, L3890.6006 ####[facility] [address] [place], [address] Absolute Neut 8.0 X10 3/uL High 2.0-7.[address] [facility] Comment on above: Performed By: #### L 100.0100, L509.8002, L501.0250, L3890.6006 ####[facility] [address] [place], [address] IG% 0.600 Normal 0.0-0.[address] [facility] Comment on above: Result Comment: IG% - Immature Granulocytes (promyelocytes, myelocytes and metamyelocytes) > 1% indicates that a LEFT SHIFT is Present. Performed By: #### L 100.0100, L509.8002, L501.0250, L3890.6006 ####[facility] [address] [place], [address] Lymphocytes/100 WBC (Bld) 16.1 % Low -[address] [facility] Comment on above: Performed By: #### L 100.0100, L509.8002, L501.0250, L3890.6006 ####[facility] [address] [place], [address] Nucleated RBC (Bld) [#/Vol] 0 10*3/uL Normal 0-[address] [facility] Comment on above: Performed By: #### L 100.0100, L509.8002, L501.0250, L3890.6006 ####[facility] [address] [place], [address] RDW SD 41.3 fl Normal 35.1-43.[address] [facility] Comment on above: Performed By: #### L 100.0100, L509.8002, L501.0250, L3890.6006 ####[facility] [address] [place], [address] Eosinophil percentageOrdered By: Dariana Eli on 01-06-2025 Eosinophils/100 WBC (Bld) 1.3 % Normal 0-[address] [facility] Comment on above: Performed By: #### L 100.0100, L509.8002, L501.0250, L3890.6006 ####[facility] [address] [place], [address] Erythrocyte distribution wid th ratioOrdered By: Dariana Eli on 01-06-2025 Erythrocyte distribution width (RBC) [Ratio] 12.4 % Normal 11.6-14.[address] [facility] Comment on above: Performed By: #### L 100.0100, L509.8002, L501.0250, L3890.6006 ####[facility] [address] [place], [address] Erythrocyte distribution wid th standard deviationOrdered By: Dariana Eli on 01-06-2025 Erythrocyte distribution width (RBC) [Ratio] 41.3 fl 35.1-43.[address] [facility] Glucose Challenge Gest 1H 50 christie 01-06-2025 GLU GEST 50g 1H 79 mg/dL Normal 70-[address] [facility] Comment on above: Performed By: #### L 100.0100, L509.8002, L501.0250, L3890.6006 ####[facility] [address] [facility] [place], [place], [address] Glucose measurement at 2 hitesh rs post-dose gestational glucose tolerance testOrdered By: Dariana lEi on 01-06-2025 Glucose [Mass/Vol] 79 mg/dL 70-140 [facility] HIVon 01-06-2025 HIV Non-Reactive Normal Nonreactive [facility] Comment on above: Result Comment: Non- Reactive Reactive Repeatedly reactive samples must be confirmed according to CDC recommended confirmatory algorithms. The subresults for either HIVAG or AHIV can be used as an aid in the selection of the confirmation algorithm for reactive samples. Send out specimens with Reactive results to [facility] for confirmation. Order the HIV antibody detection and differentiation: #[id number] Performed By: #### L 100.0100, L509.8002, L501.0250, L3890.6006 ####[facility] [address] [place], [address] Hemoglobin measurementOrdere d By: Dariana Eli on 01-06-2025 Hemoglobin (Bld) [Mass/Vol] 12.6 g/dL Normal 12.0-15.[address] [facility] Comment on above: Performed By: #### L 100.0100, L509.8002, L501.0250, L3890.6006 ####[facility] [address] [facility] [place], [address] Immature granulocytes/100 WB C Auto (Bld)Ordered By: Dariana Eli on 01-06-2025 Immature granulocytes/100 WBC (Bld) 0.600 % 0.0-0.[address] [facility] Comment on above: IG% - Immature Granu locytes (promyelocytes, myelocytes and metamyelocytes) > 1% indicates that a LEFT SHIFT is Present. MCV (mean corpuscular volume ) determinationOrdered By: Dariana Eli on 01-06-2025 MCV (RBC) [Entitic vol] 91.4 fL Normal 81-99 [facility] Comment on above: Performed By: #### L 100.0100, L509.8002, L501.0250, L3890.6006 ####[facility] [address] [place], [place], [address] Mean corpuscular hemoglobin (MCH) determinationOrdered By: Dariana Eli on 01-06-2025 MCH (RBC) [Entitic mass] 31.7 pg Normal 27.0-32.[address] [facility] Comment on above: Performed By: #### L 100.0100, L509.8002, L501.0250, L3890.6006 ####[facility] [address] [place], [address] Mean corpuscular hemoglobin concentration (MCHC) determinationOrdered By: Dariana Eli on 01-06-2025 MCHC (RBC) [Mass/Vol] 34.7 g/dL Normal 32-36 [facility] Comment on above: Performed By: #### L 100.0100, L509.8002, L501.0250, L3890.6006 ####[facility] [address] [place], [address] Mean platelet volume determi nationOrdered By: Dariana Eli on 01-06-2025 Platelet mean volume (Bld) [Entitic vol] 12.4 fL High 6.2-12.[address] [facility] Comment on above: Performed By: #### L 100.0100, L509.8002, L501.0250, L3890.6006 ####[facility] [address] [place], [address] Monocyte percentageOrdered B y: Dariana Eli on 01-06-2025 Monocytes/100 WBC (Bld) 7.4 % Normal 0-10 [facility] Comment on above: Performed By: #### L 100.0100, L509.8002, L501.0250, L3890.6006 ####[facility] [address] [place], [address] Neutrophil percentageOrdered By: Dariana Eli on 01-06-2025 Neutrophils/100 WBC (Bld) 74.3 % High 47-[address] [facility] Comment on above: Performed By: #### L 100.0100, L509.8002, L501.0250, L3890.6006 ####[facility] [address] [place], [address] No Panel InformationOrdered By: Dariana Eli on 01-06-2025 HIV (1&2) Antibody Non-Reactive Nonreactive [facility] Comment on above: Non-ReactiveReactive Repeatedly reactive samples must be confirmed according to CDC recommended confirmatory algorithms. The subresults for either HIVAG or AHIV can be used as an aid in the selection of the confirmation algorithm for reactive samples.Send out specimens with Reactive results to [facility] for confirmation.Order the HIV antibody detection and differentiation: #[id number] Nucleated red blood cell per centageOrdered By: Dariana Eli on 01-06-2025 Nucleated RBC/100 WBC (Bld) [Ratio] 0 % 0-[address] [facility] Office Visit Reporton 01-06-2025 Metal Turner Office Visit Report [facility] [address], [address] [place] [address] OFFICE VISIT Date of Service: 01/06/25 MR#: [id number] Acct: [id number] Name: QUAN RODGERS KELTON Rep #: [id number] : 2000 Provider: Dr. 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 -???-???- (more content not included)... Normal [facility] Platelet countOrdered By: Brigette Eli on 01-06-2025 Platelets (Bld) [#/Vol] 192 10*3/uL Normal 150-[address] [facility] Comment on above: Performed By: #### L 100.0100, L509.8002, L501.0250, L3890.6006 ####[facility] [address] [place], [address] Syphilis Antibodieson 2024 Syphilis Abs Non-Reactive Normal Nonreactive [facility] Comment on above: Performed By: #### L 100.0100, L509.8002, L501.0250, L3890.6006 ####[facility] [address] [place], [address] White blood cell (WBC) count Ordered By: Dariana Eli on 01-06-2025 WBC (Bld) [#/Vol] 10.8 10*3/uL Normal 4.4-11.0 [facility] Comment on above: Performed By: #### L 100.0100, L509.8002, L501.0250, L3890.6006 ####[facility] [address] [place], [address] Genital Culture Comprehensiv shanon 12-28-2024 VAC Reason for Exam: pelvic pain Normal vaginal josh isolated. No yeast, Gardnerella, Neisseria or beta-hemolytic Streptococcus isolated. Normal [facility] Comment on above: Performed By: #### L 900.0098 #### [facility] [address] [place], [address] Urine Cultureon 12-27-2024 URC Mixed Gram Positive Organisms [place] Count 11,000-25,000 MIXC Mixed contaminants. Submit a new specimen if indicated. Normal [facility] Comment on above: Performed By: #### L 900.0098 #### [facility] [address] [place], [address] Genital cultureOrdered By: Miracle Espinoza on 12-25-2024 Source specific culture Neisseria or beta-hemolytic Streptococcus isolated. [facility] Gram Stainon 12-25-2024 GS Reason for Exam: pelvic pain Gram Stain 4+ Gram positive rods 2+ White Blood Cells No Gram negative diplococci Score = 0 Interpretation: 0-3 Normal, 4-6 Intermediate, 7-[address] [facility] Comment on above: Performed By: #### L 900.0098 #### [facility] [address] [place], [address] Gram stainOrdered By: Patricia Espinoza on 12-25-2024 Microscopic observation Gram stain Nom (Unsp spec) [facility] Kidney and Bladderon 025 Kidney and Bladder [facility] Imaging Services [address] [place] [address] Kidney and Bladder MR#: [id number] Acct: [id number] Name: QUAN RODGERS KELTON Rep #: [id number] : 2000 F 24 From: Guzman Kidd MD PCP: Care Physician,No Primary Status: REG CLI Study: Kidney and Bladder Date of Exam: 12/25/24 Exam# [id number] Ordering Dr: Raven Modi DO PROCEDURE: KIDNEY [...] or suspicious solid renal lesion. Reading Location: [id number] CC: Dr. Raven Modi, ; No Primary Care Physician Label Remover: Signed Normal [facility] Laboratory - Chemistry and C hemistry - challengeOrdered By: Raven Espinoza on 12-25-2024 Bilirubin Ql (U) Negative [facility] Glucose Ql (U) Negative [facility] Ketones Ql (U) Negative [facility] pH (U) 5.0 [pH] [facility] Specific gravity (U) [Rel density] 1.[address] [facility] Urobilinogen (U) [Mass/Vol] 0.7097477 mg/dL [facility] Laboratory - Hematology and Cell countsOrdered By: Raven Espinoza on 12-25-2024 Hemoglobin Ql (U) Negative [facility] Laboratory - Specimen inform ationOrdered By: Raven Espinoza on 12-25-2024 Clarity (U) Cloudy [facility] Color (U) Straw [facility] Laboratory - UrinalysisOrder ed By: Raven Espinoza on 12-25-2024 Nitrite Ql (U) Negative [facility] Protein Ql (U) 1+ [facility] No Panel InformationOrdered By: Raven Espinoza on 12-25-[address]ve 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 Normal [facility] Visit Reporton 12-25-2024 [facility] Office Visit Report [facility] [address], [address] [place] [address] OFFICE VISIT Date of Service: 12/25/24 MR#: [id number] Acct: [id number] Name: QUAN RODGERS KELTON Rep #: [id number] : 2000 Provider: Dr. 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 (more content not included)... Normal [facility] Transvaginal w/Preg USon Transvaginal w/Preg US [facility] Imaging Services [address] [place] [address] Transvaginal w/Preg US MR#: [id number] Acct: [id number] Name: QUAN RODGERS KELTON Rep #: [id number] : 2000 F 24 From: Guzman Kidd MD PCP: Care Physician,No Primary Status: REG CLI Study: Transvaginal w/Preg US Date of Exam: 12/25/24 Exam# [id number] Ordering Dr: Raven Modi DO PROCEDURE: TRANSVAGINAL [...] minute. Left ovary not evaluated Reading Location: [id number] CC: Dr. Raven Modi DO; No Primary Care Physician Label Remover: Signed Normal [facility] Urine cultureOrdered By: Sophia Espinoza on 12-25-2024 Bacteria identified Cx Nom (U) Positive Abnormal [facility] Office Visit Reporton 12-20-2024 [facility] Office Visit Report [facility] [address], [address] [place] [address] OFFICE VISIT Date of Service: 12/20/24 MR#: [id number] Acct: [id number] Name: QUAN RODGERS Rep #: [id number] : 2000 Provider: KEO avalos Age/Sex: 24/F Location: [facility] Status: Signed Intake Vital Signs 09/26/24 13:48 11/21/24 10:42 12/20/24 08:29 Height 5 ft 11 in 5 ft 11 in 5 ft 11 in Weight: 262 lb BMI 36.5 BP 114/78 Intake Visit Reasons: 25wk ob Chief Complaint: 25wk OB Senior Analyst Developer Required: No Is patient in pain?: No [...] 1 current occupational status: employed 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 Normal [facility] Urine Cultureon 11-23-2024 URC Below infection level. Mixed Gram Positive Organisms [place] Count <1000 MIXC Mixed contaminants. Submit a new specimen if indicated. Normal [facility] Comment on above: Performed By: #### L 100.0100, L501.9985, L3890.6301, L7400.0353, L3890.6102, L509.8002, BTS, M100.2200, L3890.6006, L7000.1800, L509.4006 #### [facility] [address] [place], [place], [id number] Laboratory - Chemistry and C hemistry - challengeOrdered By: Renate Handley on 11-21-2024 Bilirubin Ql (U) Small (1+) [facility] Glucose Ql (U) Negative [facility] Ketones Ql (U) Negative [facility] pH (U) 6.0 [pH] [facility] Specific gravity (U) [Rel density] 1.[address] [facility] Urobilinogen (U) [Mass/Vol] 0.0761604 mg/dL [facility] Laboratory - Hematology and Cell countsOrdered By: Renate Handley on 11-21-2024 Hemoglobin Ql (U) Negative [facility] Laboratory - Specimen inform ationOrdered By: Renate Handley on 11-21-2024 Clarity (U) Clear [facility] Color (U) Dk Yellow [facility] Laboratory - UrinalysisOrder ed By: Renate Handley on 11-21-2024 Nitrite Ql (U) Negative [facility] Protein Ql (U) Negative [facility] No Panel InformationOrdered By: Renate Handley on 11-21-20[address] Neg[address]ve [facility] Urine Non-Hemolyzed Blood [facility] Office Visit Reporton 11-21-2024 Metal [facility] Office Visit Report [facility] [address], [address] [place] [address] OFFICE VISIT Date of Service: 11/21/24 MR#: [id number] Acct: [id number] Name: QUAN RODGERS KELTON Rep #: [id number] : 2000 Provider: Dr. 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 ??-???-???-???- (more content not included)... Normal [facility] Urine cultureOrdered By: Eric Handley on 11-21-2024 Bacteria identified Cx Nom (U) Positive Abnormal [facility] OB Anatomy w/ Transvaginalon 11-12-2024 OB Anatomy w/ Transvaginal [facility] Imaging Services [address] [place] [address] OB Anatomy w/ Transvaginal MR#: [id number] Acct: [id number] Name: [facility] KELTON Rep #: [id number] : 2000 F 24 From: Royce krueger MD PCP: Care Physician,No Primary Status: REG CLI Study: OB Anatomy w/ Transvaginal Date of Exam: 11/12 Exam# [id number] Ordering Dr: Geneva Wheeler PRESIDENT ERGONOMIC CONSULTING PRESIDENT ERGONOMIC CONSULTING -C PROCEDURE: OB ANATOMY W/ TRANSVAGINAL 11/12/2024 [...] 19 weeks and 4 days. Reading Location: [place] [address] CC: DANIEL Wheeler; No Primary Care Physician Label Remover: Signed Normal [facility] Urine Cultureon 10-27-2024 URC Mixed Gram Positive Organisms [place] Count 25,000-50,000 MIXC Mixed contaminants. Submit a new specimen if indicated. Normal [facility] Comment on above: Performed By: #### L 900.0098 #### [facility] [address] [place], [address] Bilirubin Test strip Ql (U)O rdered By: Heraclio Ornelas on 10-25-2024 Bilirubin Ql (U) 1 mg/dL High Negative [facility] Comment on above: COLOR OF URINE MAY A FFECT DIPSTICK RESULTS. Emergency Department Summary on 10-25-2024 Emergency Department Summary [facility] Medical Records Department [address] [place] [address] Emergency Department Summary 10/25/24 MR#: [id number] Acct: [id number] Name: QUAN RODGERS KELTON Rep #: [id number] : 2000 24 From: Heraclio Ornelas DO PCP: Care Physician,No Primary Status:DEP ER Location: ED Patient was seen and examined with physician assistant professor of mathematics All components of the history and physical [...] condition Supervising attending attestation: Heraclio Ornelas D.O. [facility] History of Present Illness Chief Complaint: [...] abdominal pain or bleeding. No urinary symptoms. 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 Normal [facility] Ketones Test strip Ql (U)Ord ered By: Heraclio Ornelas on 10-25-2024 Ketones Ql (U) 5 mg/dl High Negative [facility] Microscopic analysis of urin e for red blood cells (RBC)Ordered By: Heraclio Ornelas on 10-25-2024 Microscopic analysis of urine for red blood cells (RBC) 0-5 SEEN /hpf 0-[address] [facility] Mucus LM Ql (Urine sed)Order ed By: Heraclio Ornelas on 10-25-2024 Mucus Ql (Urine sed) 1+ /hpf [facility] Nitrite Test strip Ql (U)Ord ered By: Heraclio Ornelas on 10-25-2024 Nitrite Ql (U) Negative Negative [facility] Protein Test strip Ql (U)Ord ered By: Heraclio Ornelas on 10-25-2024 Protein Ql (U) 30 mg/dl High Negative [facility] Squamous epithelial cells de tection in urine sediment by light microscopyOrdered By: Heraclio Ornelas on 10-25-2024 Epithelial cells.squamous LM Ql (Urine sed) 0-5 SEEN /hpf 5-[address] [facility] Urinalysis, Completeon 10-25 Mucus Ql (Urine sed) 1+ /hpf Normal [facility] Comment on above: Order Comment: MICHAEL CTOR TO SPECIFY Performed By: #### L 400.0001 #### [facility] [address] [place], [place], [address] BACTERIA 1+ /hpf Normal None Seen [facility] Comment on above: Order Comment: MICHAEL CTOR TO SPECIFY Performed By: #### L 400.0001 #### [facility] [address] [place], [address] EPI,SQUAMOUS 0-5 SEEN Normal 5-[address] [facility] Comment on above: Order Comment: MICHAEL CTOR TO SPECIFY Performed By: #### L 400.0001 #### [facility] [address] [place], [address] RBC 0-5 SEEN Normal 0-[address] [facility] Comment on above: Order Comment: MICHAEL CTOR TO SPECIFY Performed By: #### L 400.0001 #### [facility] [address] [place], [address] WBC 0-5 SEEN Normal 0-[address] [facility] Comment on above: Order Comment: MICHAEL CTOR TO SPECIFY Performed By: #### L 400.0001 #### [facility] [address] [place], [place], [address] Urine clarityOrdered By: Brandon Ornelas on 10-25-2024 Clarity (U) Sl. Cloudy Clear [facility] Urine color determinationOrd ered By: Heraclio Ornelas on 10-25-2024 Color (U) Yellow Yellow [facility] Urine cultureOrdered By: Macy Garcia on 10-25-2024 Bacteria identified Cx Nom (U) Positive Abnormal [facility] Urine glucose detectionOrder ed By: Heraclio Ornelas on 10-25-2024 Glucose Ql (U) Normal mg/dl Normal [facility] Urine leukocyte esterase det ection by dipstickOrdered By: Heraclio Ornelas on 10-25-2024 Leukocyte esterase Test strip Ql (U) 25 /ul High Negative [facility] Urine pHOrdered By: Heraclio dias on 10-25-2024 pH (U) 5.0 [pH] 5.0 - 8.[address] [facility] Urine sediment bacteria coun t by microscopy (number/high power field)Ordered By: Heraclio Ornelas on 10-25-2024 Bacteria LM.HPF (Urine sed) [#/Area] 1 /[HPF] None Seen [facility] Urine specific gravity measu rementOrdered By: Heraclio Ornelas on 10-25-2024 Specific gravity (U) [Rel density] 1.025 1.002-1.[address] [facility] Urine urobilinogen measureme ntOrdered By: Heraclio Ornelas on 10-25-2024 Urobilinogen Ql (U) 1 mg/dl High Normal [facility] White blood cell countOrdere d By: Heraclio Ornelas on 10-25-2024 White blood cell count 0-5 SEEN /hpf 0-[address] [facility] Office Visit Reporton 10-21-2024 Metal [facility] Office Visit Report [facility] [address], [address] [place] [address] OFFICE VISIT Date of Service: 10/21/24 MR#: [id number] Acct: [id number] Name: QUAN RODGERS KELTON Rep #: [id number] : 2000 Provider: DANIEL chaparro Age/Sex: 24/F Location: [facility] Status: Signed Intake Vital Signs 08/29/24 11:11 09/26/24 13:48 10/21/24 08:39 Height 5 ft 10 in 5 ft 11 in 5 ft 11 in Weight: 258 lb 2 oz BMI 36.0 BP 115/71 Intake Visit Reasons: 17 wk ob Senior Analyst Developer Required: No Is patient in pain?: No [...] 1 current occupational status: employed 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 ??-???-???-???-??? (more content not included)... Normal [facility] Miscellaneous procedureOrder ed By: Raven Espinoza on 10-02-2024 Miscellaneous Test Comment SEE SCANNED REPORT [facility] NATERAon 10-02-2024 NATURA SEE SCANNED REPORT Normal [facility] Comment on above: Performed By: #### L 900.0098 #### [facility] [address] [place], [address] Laboratory - Chemistry and C hemistry - challengeOrdered By: Raven Espinoza on 09-26-2024 Glucose Ql (U) Negative [facility] Laboratory - UrinalysisOrder ed By: Raven Espinoza on 09-26-2024 Protein Ql (U) Negative [facility] Office Visit Reporton 09-26-2024 Metal [facility] Office Visit Report [facility] [address], [address] [place] [address] OFFICE VISIT Date of Service: 09/26/24 MR#: [id number] Acct: [id number] Name: QUAN RODGERS KELTON Rep #: [id number] : 2000 Provider: Dr. 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 Date Name GA/Weeks Outcome Route Bth Weight Gen [facility]21 Babak 39 live - full term 8lbs 14oz Male epidural [facility] Renate Farfan Delivery Date: 11/06/21 Last Updated [...] -???-???-???- 13w 3d 258 lb (-16 oz) 123/ Negative -???-???-???-???-? ??-???-???-???-??? -???-???-???- Negative 155 -???-???-???-???-? ??-???-???-???-??? -???-???-???- JV- no compl aints. is going to medicaid office today and will let us know if approved. if approved will order mfm ultrasound and NIPT with new ob labs. ACOG (more content not included)... Normal [facility] Laboratory - Chemistry and C hemistry - challengeOrdered By: Raven Espinoza on 09-04-2024 Glucose Ql (U) Negative [facility] Laboratory - UrinalysisOrder ed By: Raven Espinoza on 09-04-2024 Protein Ql (U) Negative [facility] Office Visit Reporton 09-04-2024 Metal [facility] Office Visit Report [facility] [address], [address] [place] [address] OFFICE VISIT Date of Service: 09/04/24 MR#: [id number] Acct: [id number] Name: QUAN RODGERS KELTON Rep #: [id number] : 2000 Provider: Dr. 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 Normal [facility] PAP I-G w/rfx hrHPV-Aptimaon 09-04-2024 ADEQ Comment Normal . [facility] Comment on above: Order Comment: Speci men Comment: [id number] Comment: Source.............CervixSpecimen Comment: Other..............Specimen Comment: No. of containers..01 ThinPrep Vial Result Comment: Sati sfactory for evaluation. Endocervical and/or squamous metaplastic cells (endocervical component) are present. Performed By: #### L 100.0100, L501.9985, L3890.6301, L7400.0353, L3890.6102, L509.8002, BTS, M100.2200, L3890.6006, L7000.1800, L509.4006 ####[facility] [address] [place], [place], [address] COMM . Normal . [facility] Comment on above: Order Comment: Speci men Comment: [id number] Comment: Source.............CervixSpecimen Comment: Other..............Specimen Comment: No. of containers..01 ThinPrep Vial Performed By: #### L 100.0100, L501.9985, L3890.6301, L7400.0353, L3890.6102, L509.8002, BTS, M100.2200, L3890.6006, L7000.1800, L509.4006 ####[facility] [address] [place], [address] COMMENT Comment Normal . [facility] Comment on above: Order Comment: Speci men Comment: [id number] Comment: Source.............CervixSpecimen Comment: Other..............Specimen Comment: No. of containers..01 ThinPrep Vial Result Comment: This liquid based ThinPrep(R) pap test was screened with the use of an image guided system. Performed By: #### L 100.0100, L501.9985, L3890.6301, L7400.0353, L3890.6102, L509.8002, BTS, M100.2200, L3890.6006, L7000.1800, L509.4006 ####[facility] [address] [place], [place], [address] DIAG Comment Normal . [facility] Comment on above: Order Comment: Speci men Comment: [id number] Comment: Source.............CervixSpecimen Comment: Other..............Specimen Comment: No. of containers..01 ThinPrep Vial Result Comment: NEGA TIVE FOR INTRAEPITHELIAL LESION OR MALIGNANCY. THIS SPECIMEN WAS RESCREENED PART OF OUR APPAREL TRIMMINGS SALES REPRESENTATIVE PROGRAM. Performed By: #### L 100.0100, L501.9985, L3890.6301, L7400.0353, L3890.6102, L509.8002, BTS, M100.2200, L3890.6006, L7000.1800, L509.4006 ####[facility] [address] [place], [place], [address] HPV RFLX Comment Normal . [facility] Comment on above: Order Comment: Speci men Comment: [id number] Comment: Source.............CervixSpecimen Comment: Other..............Specimen Comment: No. of containers..01 ThinPrep Vial Result Comment: The HPV DNA reflex criteria were not met with this specimen result therefore, no HPV testing was performed. Performed at: [address] [place] [id number] Sterilization Tech: Sheryl Melendez MD, Phone: [phone] Performed By: #### L 100.0100, L501.9985, L3890.6301, L7400.0353, L3890.6102, L509.8002, BTS, M100.2200, L3890.6006, L7000.1800, L509.4006 ####[facility] [address] [place], [address] PAPSMR Comment Normal . [facility] Comment on above: Order Comment: Speci men Comment: [id number] Comment: Source.............CervixSpecimen Comment: Other..............Specimen Comment: No. of [...] reports do occur. Performed By: #### L 100.0100, L501.9985, L3890.6301, L7400.0353, L3890.6102, L509.8002, BTS, M100.2200, L3890.6006, L7000.1800, L509.4006 ####[facility] [address] [place], [address] PERFORM Comment Normal . [facility] Comment on above: Order Comment: Speci men Comment: [id number] Comment: Source.............CervixSpecimen Comment: Other..............Specimen Comment: No. of containers..01 ThinPrep Vial Result Comment: Selina Burks Charger Operator Helper (ASCP) Performed By: #### L 100.0100, L501.9985, L3890.6301, L7400.0353, L3890.6102, L509.8002, BTS, M100.2200, L3890.6006, L7000.1800, L509.4006 ####[facility] [address] [place], [place], [id number] QC REV Comment Normal . [facility] Comment on above: Order Comment: Speci men Comment: [id number] Comment: Source.............CervixSpecimen Comment: Other..............Specimen Comment: No. of containers..01 ThinPrep Vial Result Comment: Lala Rockwell Charger Operator Helper (ASCP) Performed By: #### L 100.0100, L501.9985, L3890.6301, L7400.0353, L3890.6102, L509.8002, BTS, M100.2200, L3890.6006, L7000.1800, L509.4006 ####[facility] [address] [place], [place], [id number] Chlamydia/GC DEVENDRA aptimaon CHLAMY,NUC ACID Negative Normal Negative [facility] Comment on above: Performed By: #### L 100.0100, L501.9985, L3890.6301, L7400.0353, L3890.6102, L509.8002, BTS, M100.2200, L3890.6006, L7000.1800, L509.4006 ####[facility] [address] [place], [place], [id number] GC BY NUC ACID Negative Normal Negative [facility] Comment on above: Result Comment: Perf ormed at: =G - [facility] [address] [place] [id number] Sterilization Tech: Sheryl Melendez MD, Phone: [phone] Performed By: #### L 100.0100, L501.9985, L3890.6301, L7400.0353, L3890.6102, L509.8002, BTS, M100.2200, L3890.6006, L7000.1800, L509.4006 ####[facility] [address] [place], [place], [address] Urine Cultureon 08-31-2024 URC Mixed Gram Positive Organisms [place] Count 25,000-50,000 MIXC Mixed contaminants. Submit a new specimen if indicated. Normal [facility] Comment on above: Performed By: #### L 900.0098 #### [facility] [address] [place], [address] URC Mixed Gram Positive Organisms [place] Count 11,000-25,000 MIXC Mixed contaminants. Submit a new specimen if indicated. Normal [facility] Comment on above: Performed By: #### L 100.0100, L501.9985, L3890.6301, L7400.0353, L3890.6102, L509.8002, BTS, M100.2200, L3890.6006, L7000.1800, L509.4006 ####[facility] [address] [place], [address] Amorphous sediment detection in urine sediment by light microscopyOrdered By: Christiano Villafuerte on 08-30-2024 Amorphous sediment LM Ql (Urine sed) 1+ URATE [facility] Bacteria LM.HPF (Urine sed) [#/Area]Ordered By: Christiano Villafuerte on 08-30-2024 Urine Bacteria RARE /hpf None Seen [facility] Bilirubin Test strip Ql (U)O rdered By: Christiano Villafuerte on 08-30-2024 Bilirubin Ql (U) Negative Negative [facility] Emergency Department Summary on 08-30-2024 Emergency Department Summary [facility] Medical Records Department [address] [place] [address] Emergency Department Summary 08/30/24 MR#: [id number] Acct: [id number] Name: QUAN RODGERS KELTON Rep #: [id number] : 2000 24 From: Christiano Villafuerte MD [...] had a checkup in the office and linux devops engineer did an ultrasound and told her she had an IUP. G2, . She states she was having some trouble urinating tonight 2, when she felt like she needed to go she only dribbled a little. She denies any hematuria. No dysuria. No pain in her flank or back. No nausea or vomiting. No fevers or chills. Normal bowel movements. 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 Normal [facility] Epithelial cells.squamous LM Ql (Urine sed)Ordered By: Christiano Villafuerte on 08-30-2024 Epithelial cells.squamous LM.HPF (Urine sed) [#/Area] 10 /[HPF] 5-[address] [facility] Glucose Ql (U)Ordered By: Riley Villafuerte on 08-30-2024 Urine Glucose (UA) Normal mg/dl Normal [facility] HCG ( test) QlOrder ed By: Christiano Villafuerte on 08-30-2024 Human Chorionic Gonadotropin, Quant 010214 mIU/mL High <[address] [facility] Comment on above: Gestational Age0.2-1 Week: 5-50 mIU/mL1-2 Weeks: 50-500 mIU/mL2-3 Weeks: 100-5000 mIU/mL3-4 Weeks: 500-10,000 mIU/mL4-5 Weeks:1000-50,000 mIU/mL5-6 Weeks: 10,000-100,000 mIU/mL6-8 Weeks: 15,000-200,000 mIU/mL2-3 Months:10,000-100,000 mIU/mL Ketones Test strip Ql (U)Ord ered By: Christiano Villafuerte on 08-30-2024 Ketones Ql (U) Negative Negative [facility] Microscopic analysis of urin e for red blood cells (RBC)Ordered By: Christiano Villafuerte on 08-30-2024 Microscopic analysis of urine for red blood cells (RBC) 0 SEEN /hpf 0-[address] [facility] Urine RBC 0 SEEN /hpf 0-[address] [facility] Mucus LM Ql (Urine sed)Order ed By: Christiano Villafuerte on 08-30-2024 Mucus Ql (Urine sed) 0 SEEN /hpf [facility] Nitrite Test strip Ql (U)Ord ered By: Christiano Villafuerte on 08-30-2024 Nitrite Ql (U) Negative Negative [facility] Protein Test strip Ql (U)Ord ered By: Christiano Villafuerte on 08-30-2024 Protein Ql (U) 30 mg/dl High Negative [facility] Serum human chorionic gonado tropin detection for pregnancyOrdered By: Christiano Villafuerte on 08-30-2024 HCG ( test) Ql 098861 mIU/mL High <[address] [facility] Comment on above: Gestational Age0.2-1 Week: 5-50 mIU/mL1-2 Weeks: 50-500 mIU/mL2-3 Weeks: 100-5000 mIU/mL3-4 Weeks: 500-10,000 mIU/mL4-5 Weeks:1000-50,000 mIU/mL5-6 Weeks: 10,000-100,000 mIU/mL6-8 Weeks: 15,000-200,000 mIU/mL2-3 Months:10,000-100,000 mIU/mL Squamous epithelial cells de tection in urine sediment by light microscopyOrdered By: Christiano Villafuerte on 08-30-2024 Epithelial cells.squamous LM Ql (Urine sed) 10-25 SEEN /hpf 5-[address] [facility] Transvaginal w/Preg USon Transvaginal w/Preg US [facility] [address] [place] [address] Transvaginal w/Preg US MR#: [id number] Acct: [id number] Name: QUAN RODGERS KELTON Rep #: [id number] : 2000 F 24 From: Lukas Lynn MD PCP: Care Physician,No Primary Status: REG ER Study: Transvaginal w/Preg US Date of Exam: 08/30/24 Exam# [id number] Ordering Dr: Christiano Villafuerte MD PROCEDURE: TRANSVAGINAL [...] tones 177 beats per minute.. Reading Location: [id number] CC: Dr. Christiano Villafuerte MD; No Primary Care Physician Label Remover: Signed Normal [facility] Urinalysis, Completeon 08-30 AMORPHOUS 1+ URATE Normal [facility] Comment on above: Order Comment: CLEAN CATCH Performed By: #### L 400.0001 ####[facility] [address] [place], [address] BACTERIA RARE Normal None Seen [facility] Comment on above: Order Comment: CLEAN CATCH Performed By: #### L 400.0001 ####[facility] [address] [place], [address] EPI,SQUAMOUS 10-25 SEEN Normal 5-[address] [facility] Comment on above: Order Comment: CLEAN CATCH Performed By: #### L 400.0001 ####[facility] [address] [place], [address] RBC 0 SEEN Normal 0-[address] [facility] Comment on above: Order Comment: CLEAN CATCH Performed By: #### L 400.0001 ####[facility] [address] [place], [address] WBC 5-10 SEEN Normal 0-[address] [facility] Comment on above: Order Comment: CLEAN CATCH Performed By: #### L 400.0001 ####[facility] [address] [place], [address] Mucus Ql (Urine sed) 0 SEEN Normal [facility] Comment on above: Order Comment: CLEAN CATCH Performed By: #### L 400.0001 ####[facility] [address] [place], [address] Urine blood detectionOrdered By: Christiano Villafuerte on 08-30-2024 Urine Occult Blood Negative Negative [facility] Urine clarityOrdered By: Kevin Villafuerte on 08-30-2024 Clarity (U) Cloudy Clear [facility] Urine color determinationOrd ered By: Christiano Villafuerte on 08-30-2024 Color (U) Yellow Yellow [facility] Urine cultureOrdered By: Kevin Villafuerte on 08-30-2024 Bacteria identified Cx Nom (U) Positive Abnormal [facility] Urine glucose detectionOrder ed By: Christiano Villafuerte on 08-30-2024 Glucose Ql (U) Normal mg/dl Normal [facility] Urine leukocyte esterase det ection by dipstickOrdered By: Christiano Villafuerte on 08-30-2024 Leukocyte esterase Test strip Ql (U) 100 /ul High Negative [facility] Urine pHOrdered By: Christiano Villafuerte on 08-30-2024 pH (U) 6.0 [pH] 5.0 - 8.[address] [facility] Urine sediment bacteria coun t by microscopy (number/high power field)Ordered By: Christiano Villafuerte on 08-30-2024 Bacteria LM.HPF (Urine sed) [#/Area] RARE /hpf None Seen [facility] Urine specific gravity measu rementOrdered By: Christiano Villafuerte on 08-30-2024 Specific gravity (U) [Rel density] 1.025 1.002-1.[address] [facility] Urine urobilinogen measureme ntOrdered By: Christiano Villafuerte on 08-30-2024 Urobilinogen Ql (U) 1 mg/dl High Normal [facility] Urobilinogen Ql (U)Ordered B y: Christiano Villafuerte on 08-30-2024 Urobilinogen (U) [Mass/Vol] 1 mg/dL High Normal [facility] White blood cell countOrdere d By: Christiano Villafuerte on 08-30-2024 Urine WBC 5-10 SEEN /hpf 0-[address] [facility] White blood cell count 5-10 SEEN /hpf 0-[address] [facility] hCG Titer Quant., Serumon HCG QUANT. 408432 mIU/mL High <9 non-preg [facility] Comment on above: Result Comment: Gest ational Age 0.2-1 Week: 5-50 mIU/mL 1-2 Weeks: 50-500 mIU/mL 2-3 Weeks: 100-5000 mIU/mL 3-4 Weeks: 500-10,000 mIU/mL 4-5 Weeks:1000-50,000 mIU/mL 5-6 Weeks: 10,000-100,000 mIU/mL 6-8 Weeks: 15,000-200,000 mIU/mL 2-3 Months:10,000-100,000 mIU/mL Performed By: #### L 100.0100, L501.9985, L3890.6301, L7400.0353, L3890.6102, L509.8002, BTS, M100.2200, L3890.6006, L7000.1800, L509.4006 #### [facility] [address] [place], [place], [id number] Absolute lymphocyte countOrd ered By: Shell Curry on 08-29-2024 Lymphocytes Auto (Unsp spec) [#/Vol] 2.01 10*3/uL 0.83-4.[address] [facility] Absolute neutrophil countOrd ered By: Shell Curry on 08-29-2024 Neutrophils (Bld) [#/Vol] 6.1 10*3/uL 2.0-7.[address] [facility] Automated lymphocyte count a s percentage of total leukocytesOrdered By: Shell Curry on 08-29-2024 Lymphocytes/100 WBC Auto (Unsp spec) 22.5 % 19-[address] [facility] Basophil percentageOrdered B y: Shell Curry on 08-29-2024 Basophils/100 WBC (Bld) 0.6 % 0-1 [facility] C. trachomatis rRNA DEVENDRA+prob e Ql (Unsp spec)Ordered By: Shell Curry on 08-29-2024 Chlamydia DNA (DEVENDRA) Negative Negative [facility] CBC W/Diff, Automatedon Absolute Lymph 2.01 X10 3/uL Normal 0.83-4.[address] [facility] Comment on above: Performed By: #### L 100.0100, L501.9985, L3890.6301, L7400.0353, L3890.6102, L509.8002, BTS, M100.2200, L3890.6006, L7000.1800, L509.4006 #### [facility] [address] [place], [address] Absolute Neut 6.1 X10 3/uL Normal 2.0-7.[address] [facility] Comment on above: Performed By: #### L 100.0100, L501.9985, L3890.6301, L7400.0353, L3890.6102, L509.8002, BTS, M100.2200, L3890.6006, L7000.1800, L509.4006 #### [facility] [address] [place], [address] Basophils/100 WBC (Bld) 0.6 % Normal 0-1 [facility] Comment on above: Performed By: #### L 100.0100, L501.9985, L3890.6301, L7400.0353, L3890.6102, L509.8002, BTS, M100.2200, L3890.6006, L7000.1800, L509.4006 #### [facility] [address] [place], [address] Eosinophils/100 WBC (Bld) 0.8 % Normal 0-[address] [facility] Comment on above: Performed By: #### L 100.0100, L501.9985, L3890.6301, L7400.0353, L3890.6102, L509.8002, BTS, M100.2200, L3890.6006, L7000.1800, L509.4006 #### [facility] [address] [place], [address] Erythrocyte distribution width (RBC) [Ratio] 11.9 % Normal 11.6-14.[address] [facility] Comment on above: Performed By: #### L 100.0100, L501.9985, L3890.6301, L7400.0353, L3890.6102, L509.8002, BTS, M100.2200, L3890.6006, L7000.1800, L509.4006 #### [facility] [address] [place], [address] Hematocrit (Bld) [Volume fraction] 38.2 % Normal 37-[address] [facility] Comment on above: Performed By: #### L 100.0100, L501.9985, L3890.6301, L7400.0353, L3890.6102, L509.8002, BTS, M100.2200, L3890.6006, L7000.1800, L509.4006 #### [facility] [address] [place], [address] Hemoglobin (Bld) [Mass/Vol] 13.0 g/dL Normal 12.0-15.[address] [facility] Comment on above: Performed By: #### L 100.0100, L501.9985, L3890.6301, L7400.0353, L3890.6102, L509.8002, BTS, M100.2200, L3890.6006, L7000.1800, L509.4006 #### [facility] [address] [place], [address] IG% 0.400 Normal 0.0-0.[address] [facility] Comment on above: Result Comment: IG% - Immature Granulocytes (promyelocytes, myelocytes and metamyelocytes) > 1% indicates that a LEFT SHIFT is Present. Performed By: #### L 100.0100, L501.9985, L3890.6301, L7400.0353, L3890.6102, L509.8002, BTS, M100.2200, L3890.6006, L7000.1800, L509.4006 #### [facility] [address] [facility] [place], [address] Lymphocytes/100 WBC (Bld) 22.5 % Normal 19-[address] [facility] Comment on above: Performed By: #### L 100.0100, L501.9985, L3890.6301, L7400.0353, L3890.6102, L509.8002, BTS, M100.2200, L3890.6006, L7000.1800, L509.4006 #### [facility] [address] [place], [address] MCH (RBC) [Entitic mass] 30.2 pg Normal 27.0-32.[address] [facility] Comment on above: Performed By: #### L 100.0100, L501.9985, L3890.6301, L7400.0353, L3890.6102, L509.8002, BTS, M100.2200, L3890.6006, L7000.1800, L509.4006 #### [facility] [address] [place], [address] MCHC (RBC) [Mass/Vol] 34.0 g/dL Normal 32-36 [facility] Comment on above: Performed By: #### L 100.0100, L501.9985, L3890.6301, L7400.0353, L3890.6102, L509.8002, BTS, M100.2200, L3890.6006, L7000.1800, L509.4006 #### [facility] [address] [place], [address] MCV (RBC) [Entitic vol] 88.6 fL Normal 81-99 [facility] Comment on above: Performed By: #### L 100.0100, L501.9985, L3890.6301, L7400.0353, L3890.6102, L509.8002, BTS, M100.2200, L3890.6006, L7000.1800, L509.4006 #### [facility] [address] [place], [address] Monocytes/100 WBC (Bld) 7.9 % Normal 0-10 [facility] Comment on above: Performed By: #### L 100.0100, L501.9985, L3890.6301, L7400.0353, L3890.6102, L509.8002, BTS, M100.2200, L3890.6006, L7000.1800, L509.4006 #### [facility] [address] [place], [address] Neutrophils/100 WBC (Bld) 67.8 % Normal 47-[address] [facility] Comment on above: Performed By: #### L 100.0100, L501.9985, L3890.6301, L7400.0353, L3890.6102, L509.8002, BTS, M100.2200, L3890.6006, L7000.1800, L509.4006 #### [facility] [address] [place], [address] Nucleated RBC (Bld) [#/Vol] 0 10*3/uL Normal 0-[address] [facility] Comment on above: Performed By: #### L 100.0100, L501.9985, L3890.6301, L7400.0353, L3890.6102, L509.8002, BTS, M100.2200, L3890.6006, L7000.1800, L509.4006 #### [facility] [address] [place], [address] Platelet mean volume (Bld) [Entitic vol] 11.1 fL Normal 6.2-12.[address] [facility] Comment on above: Performed By: #### L 100.0100, L501.9985, L3890.6301, L7400.0353, L3890.6102, L509.8002, BTS, M100.2200, L3890.6006, L7000.1800, L509.4006 #### [facility] [address] [place], [address] Platelets (Bld) [#/Vol] 254 10*3/uL Normal 150-[address] [facility] Comment on above: Performed By: #### L 100.0100, L501.9985, L3890.6301, L7400.0353, L3890.6102, L509.8002, BTS, M100.2200, L3890.6006, L7000.1800, L509.4006 #### [facility] [address] [place], [address] RBC (Bld) [#/Vol] 4.31 10*6/uL Normal 4.2-5.4 [facility] Comment on above: Performed By: #### L 100.0100, L501.9985, L3890.6301, L7400.0353, L3890.6102, L509.8002, BTS, M100.2200, L3890.6006, L7000.1800, L509.4006 #### [facility] [address] [place], [address] RDW SD 38.4 fl Normal 35.1-43.[address] [facility] Comment on above: Performed By: #### L 100.0100, L501.9985, L3890.6301, L7400.0353, L3890.6102, L509.8002, BTS, M100.2200, L3890.6006, L7000.1800, L509.4006 #### [facility] [address] [place], [address] WBC (Bld) [#/Vol] 8.9 10*3/uL Normal 4.4-11.0 [facility] Comment on above: Performed By: #### L 100.0100, L501.9985, L3890.6301, L7400.0353, L3890.6102, L509.8002, BTS, M100.2200, L3890.6006, L7000.1800, L509.4006 #### [facility] [place], [address] Cervical or vagninal specime n microscopic examination by cytology stain (reported asOrdered By: Shell Curry on 08-29-2024 Cytology report Cyto stain Doc (Cvx/Vag) Comment . [facility] Comment on above: The Pap smear [...] rRNA DEVENDRA+probe Ql (Unsp spec) Negative Negative [facility] [employer] Inspector Cyto stain Nom (C vx/Vag) [ID]Ordered By: Shell Curry on 08-29-2024 Pap Smear Performed By Comment . [facility] Comment on above: Selina Burks, Cytotec hnologist (ASCP) Cytology report Cyto stain D oc (Cvx/Vag)Ordered By: Shell Curry on 08-29-2024 Thin Prep Pap Smear Comment . [facility] Comment on above: The Pap smear is a s creening test designed to aid in thedetection of premalignant and malignant conditions of theuterine cervix. It is not a diagnostic procedure andshould not be used as the sole means of detecting cervicalcancer. Both false-positive and false-negative reports dooccur. Eosinophil percentageOrdered By: Shell Curry on 08-29-2024 Eosinophils/100 WBC (Bld) 0.8 % 0-[address] [facility] Erythrocyte distribution wid th ratioOrdered By: Shell Curry on 08-29-2024 Erythrocyte distribution width (RBC) [Ratio] 11.9 % 11.6-14.[address] [facility] Erythrocyte distribution wid th standard deviationOrdered By: Shell Curry on 08-29-2024 Erythrocyte distribution width (RBC) [Entitic vol] 38.4 fL 35.1-43.[address] [facility] Erythrocyte distribution width (RBC) [Ratio] 38.4 fl 35.1-43.[address] [facility] HBV surface Ag Ql (S)Ordered By: Shell Curry on 08-29-2024 Hepatitis B Surface Antigen Non-Reactive Nonreactive [facility] Comment on above: Reactive: Presumptiv e evidence of HBV. Repeatedly reactive samples must be confirmed using a neutralization test (VCharges HBsAg Confirmatory Test)Non-Reactive: HBsAg not detected; does not exclude the possibility of exposure to HBV Hematocrit Auto (Bld) [Volum e fraction]Ordered By: Shell Curry on 08-29-2024 Hematocrit (Bld) [Volume fraction] 38.2 % 37-[address] [facility] Hemoglobin A1con 08-29-2024 HbA1c (Bld) [Mass fraction] 5.1 % Low <=5.[address] [facility] Comment on above: Performed By: #### L 100.0100, L501.9985, L3890.6301, L7400.0353, L3890.6102, L509.8002, BTS, M100.2200, L3890.6006, L7000.1800, L509.4006 ####[facility] [address] [place], [place], [address] Hemoglobin A1c percentageOrd ered By: Shell Curry on 08-29-2024 HbA1c (Bld) [Mass fraction] 5.1 % Low >5.[address] [facility] Hemoglobin measurementOrdere d By: Shell Curry on 08-29-2024 Hemoglobin (Bld) [Mass/Vol] 13.0 g/dL 12.0-15.[address] [facility] Hepatitis C antibodyOrdered By: Shell Curry on 08-29-2024 Hepatitis C Antibody Non-Reactive Nonreactive [facility] Comment on above: Reactive: Presumptiv e evidence of antibodies to HCV. Follow CDC recommendations for supplemental testing.Non-Reactive: Antibodies to HCV were not detected; does not exclude the possibility of exposure to HCVReactive Results are presumptive evidence of antibodies to HCV. Follow CDC recommendations for supplemental testing.Order confirmation testing: HCV Quant by PCR testing - HCVPCR #[id number] Non Reactive: < 0.8 Equivocal: >/= 0.8 to < 1.0 Reactive: >/= 1.0The CDC requires that a reactive/equivocal HCV antibody result be sent out for confirmation. HCV Quant by PCR testing. Image-guided ThinPrep PapOrd ered By: Shell Curry on 08-29-2024 Pap Smear Note Comment . [facility] Comment on above: This liquid based Th inPrep(R) pap test was screened withthe use of an image guided system. Image-guided liquid-based Pa pOrdered By: Shell Curry on 08-29-2024 Pap Smear Diagnosis Comment . [facility] Comment on above: NEGATIVE FOR INTRAEP ITHELIAL LESION OR MALIGNANCY.THIS SPECIMEN WAS RESCREENED PART OF OUR APPAREL TRIMMINGS SALES REPRESENTATIVE PROGRAM. Image-guided liquid-based ce rvical Pap w high-risk HPV+reflex to HPV 16+18Ordered By: Shell Curry on 08-29-2024 Human Papillomavirus Screen Comment . [facility] Comment on above: The HPV DNA reflex c riteria were not met with this specimenresult therefore, no HPV testing was performed.Performed at: [facility] [id number] Director: Sheryl Melendez MD, Phone: [phone] Immature granulocytes/100 WB C Auto (Bld)Ordered By: Shell Curry on 08-29-2024 Immature granulocytes/100 WBC (Bld) 0.400 % 0.0-0.[address] [facility] Comment on above: IG% - Immature Granu locytes (promyelocytes, myelocytes and metamyelocytes) > 1% indicates that a LEFT SHIFT is Present. L3890.6006on 08-29-2024 HIV Non-Reactive Normal Nonreactive [facility] Comment on above: Result Comment: Non- Reactive Reactive Repeatedly reactive samples must be confirmed according to CDC recommended confirmatory algorithms. The subresults for either HIVAG or AHIV can be used as an aid in the selection of the confirmation algorithm for reactive samples. Send out specimens with Reactive results to [facility] for confirmation. Order the HIV antibody detection and differentiation: [id number] Performed By: #### L 100.0100, L501.9985, L3890.6301, L7400.0353, L3890.6102, L509.8002, BTS, M100.2200, L3890.6006, L7000.1800, L509.4006 #### [facility] [address] [place], [address] L3890.6102on 08-29-2024 HEP B Surf Ag Non-Reactive Normal Nonreactive [facility] Comment on above: Result Comment: Reac tive: Presumptive evidence of HBV. Repeatedly reactive samples must be confirmed using a neutralization test ([employer] HBsAg Confirmatory Test) Non-Reactive: HBsAg not detected; does not exclude the possibility of exposure to HBV Performed By: #### L 100.0100, L501.9985, L3890.6301, L7400.0353, L3890.6102, L509.8002, BTS, M100.2200, L3890.6006, L7000.1800, L509.4006 ####[facility] [address] [facility] [place], [place], [address] L3890.6301on 08-29-2024 Hepatitis C Ab Non-Reactive Normal Nonreactive [facility] Comment on above: Result Comment: Reac tive: Presumptive evidence of antibodies to HCV. Follow CDC recommendations for supplemental testing. Non-Reactive: Antibodies to HCV were not detected; does not exclude the possibility of exposure to HCV Reactive Results are presumptive evidence of antibodies to HCV. Follow CDC recommendations for supplemental testing. Order confirmation testing: HCV Quant by PCR testing - HCVPCR #[id number] Non Reactive: < 0.8 Equivocal: >/= 0.8 to < 1.0 Reactive: >/= 1.0 The CDC requires that a reactive/equivocal HCV antibody result be sent out for confirmation. HCV Quant by PCR testing. Performed By: #### L 100.0100, L501.9985, L3890.6301, L7400.0353, L3890.6102, L509.8002, BTS, M100.2200, L3890.6006, L7000.1800, L509.4006 ####[facility] [address] [place], [address] L509.4006on 08-29-2024 Rubella IgG REAC Normal Nonreactive [facility] Comment on above: Result Comment: Anti body Result: Interpretation Non-Reactive: Non-Immune Reactive: Immune The following results were obtained with the [employer] Rubella IgG assay. Results from assays of other manufacturers cannot be used interchangeably. Performed By: #### L 100.0100, L501.9985, L3890.6301, L7400.0353, L3890.6102, L509.8002, BTS, M100.2200, L3890.6006, L7000.1800, L509.4006 #### [facility] [address] [place], [address] L509.8002on 08-29-2024 Syphilis Abs Non-Reactive Normal Nonreactive [facility] Comment on above: Performed By: #### L 100.0100, L501.9985, L3890.6301, L7400.0353, L3890.6102, L509.8002, BTS, M100.2200, L3890.6006, L7000.1800, L509.4006 #### [facility] [address] [place], [address] Laboratory - CytologyOrdered By: Shell Curry on 08-29-2024 [employer] Inspector Cyto stain Nom (Cvx/Vag) [ID] Comment . [facility] Comment on above: Selina Burks, Cytotec hnologist (ASCP) Laboratory - Microbiology an d Antimicrobial susceptibilityOrdered By: Shell Curry on 08-29-2024 HBV surface Ag Ql (S) Non-Reactive Nonreactive [facility] Comment on above: Reactive: Presumptiv e evidence of HBV. Repeatedly reactive samples must be confirmed using a neutralization test ([employer] HBsAg Confirmatory Test)Non-Reactive: HBsAg not detected; does not exclude the possibility of exposure to HBV Laboratory - Miscellaneous t estsOrdered By: Shell Curry on 08-29-2024 Service comment (Unsp spec) [Interp] . . [facility] Lymphocytes Auto (Unsp spec) [#/Vol]Ordered By: Shell Curyr on 08-29-2024 Lymphocytes (Bld) [#/Vol] 2.01 10*3/uL 0.83-4.[address] [facility] Lymphocytes/100 WBC Auto (Un sp spec)Ordered By: Shell Curry on 08-29-2024 Lymphocytes/100 WBC (Bld) 22.5 % 19-[address] [facility] MCV (mean corpuscular volume ) determinationOrdered By: Shell Curry on 08-29-2024 MCV (RBC) [Entitic vol] 88.6 fL 81-99 [facility] Mean corpuscular hemoglobin (MCH) determinationOrdered By: Shell Curry on 08-29-2024 MCH (RBC) [Entitic mass] 30.2 pg 27.0-32.[address] [facility] Mean corpuscular hemoglobin concentration (MCHC) determinationOrdered By: Shell Curry on 08-29-2024 MCHC (RBC) [Mass/Vol] 34.0 g/dL 32-36 [facility] Mean platelet volume determi nationOrdered By: Shell Curry on 08-29-2024 Platelet mean volume (Bld) [Entitic vol] 11.1 fL 6.2-12.[address] [facility] Monocyte percentageOrdered B y: Shell Curry on 08-29-2024 Monocytes/100 WBC (Bld) 7.9 % 0-10 [facility] Neisseria gonorrhoeae nuclei c acid detection by amplified probe techniqueOrdered By: Shell Curry on 08-29-2024 N. gonorrhoeae DNA DEVENDRA+probe Ql (Unsp spec) Negative Negative [facility] Comment on above: Performed at: = - [address] [id number] Director: Sheryl Melendez MD, Phone: [phone] Neutrophil percentageOrdered By: Shell Curry on 08-29-2024 Neutrophils/100 WBC (Bld) 67.8 % 47-[address] [facility] No Panel InformationOrdered By: Shell Curry on 08-29-2024 HIV (1&2) Antibody Non-Reactive Nonreactive [facility] Comment on above: Non-ReactiveReactive Repeatedly reactive samples must be confirmed according to CDC recommended confirmatory algorithms. The subresults for either HIVAG or AHIV can be used as an aid in the selection of the confirmation algorithm for reactive samples.Send out specimens with Reactive results to [facility] for confirmation.Order the HIV antibody detection and differentiation: #[id number] Pap Smear QC Review Comment . [facility] Comment on above: Lala Rockwell, Cytot echnologist (ASCP) Pap Smear Specimen Adequacy Comment . [facility] Comment on above: Satisfactory for anna luation. Endocervical and/or squamous metaplasticcells (endocervical component) are present. Nucleated red blood cell per centageOrdered By: Shell Curry on 08-29-2024 Nucleated RBC/100 WBC (Bld) [Ratio] 0 % 0-[address] 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 Normal [facility] Platelet countOrdered By: Byron Curry on 08-29-2024 Platelets (Bld) [#/Vol] 254 10*3/uL 150-[address] [facility] RBC Auto (Bld) [#/Vol]Ordere d By: Shell Curry on 08-29-2024 RBC (Bld) [#/Vol] 4.31 10*6/uL 4.2-5.4 [facility] Rubella immune status determ ination by IgG antibody assayOrdered By: Shell Curry on 08-29-2024 Rubella IgG Antibody REAC Nonreactive [facility] Comment on above: Antibody Result: Int erpretationNon-Reactive: Non-ImmuneReactive: ImmuneThe following results were obtained with the [employer] Rubella IgG assay. Results from assays of other manufacturers cannot be used interchangeably. Service comment (Unsp spec) [Interp]Ordered By: Shell Curry on 08-29-2024 Pap Smear Comment (3) . . [facility] T. pallidum abOrdered By: Byron Curry on 08-29-2024 Syphilis Total Antibody Non-Reactive Nonreactiv e [facility] Type AND Screenon 08-29-2024 Ab SCREEN GEL Negative Normal [facility] Comment on above: Order Comment: N Performed By: #### L 100.0100, L501.9985, L3890.6301, L7400.0353, L3890.6102, L509.8002, BTS, M100.2200, L3890.6006, L7000.1800, L509.4006 #### [facility] [address] [place], [address] Urine cultureOrdered By: Jeison Curry on 08-29-2024 Bacteria identified Cx Nom (U) Positive Abnormal [facility] White blood cell (WBC) count Ordered By: Shell Curry on 08-29-2024 WBC (Bld) [#/Vol] 8.9 10*3/uL 4.4-11.0 [facility] Emergency Department Summary on 06-16-2024 Emergency Department Summary [facility] Medical Records Department [address] [place] [address] Emergency Department Summary 06/16/24 MR#: [id number] Acct: [id number] Name: QUAN RODGERS KELTON Rep #: [id number] : 2000 24 From: Franco Ortiz DO [...] bleeding would not stop. Here for evaluation. [facility] Medical History Arrest of dilation, delivered, current [...] Yes additional social history: - Adolph REAL REAL ED ROS Narrative Constitutional: Negative for fever, [...] was give (more content not included)... Normal [facility] Office Visit Reporton 2023 Office Visit Report [facility] [address] [address] OFFICE VISIT Date of Service: 02/29/24 MR#: [id number] Acct: [id number] Patient: QUAN RODGERS KELTON Rep #: [id number] : 2000 Provider: CHANDNI Porter Age/Sex: 24/F Location: [facility] Status: Signed Intake Vital Signs 08/15/23 17:35 Height 5 ft 11 in Intake Visit Reasons: PE NON DOT DRUG SCREEN/ [place] Chief Complaint: Depo Allergies No Known Allergies Allergy (Verified 08/15/23 17:37) Office Procedures [facility] Billing Sheet Testing Drug Screen Collection Only: Yes 04/03/2452 Date Frank TARIQ Cosigner Signature: Date (if applicable) CC: Normal [facility] Absolute lymphocyte counton 04-14-2022 Lymphocytes Auto (Unsp spec) [#/Vol] 2.17 10*3/uL 0.83-4.[address] [facility] Work Phone: Basophil percentageon 2021 Basophils/100 WBC (Bld) 0.6 % 0-1 [facility] Work Phone: Eosinophils/100 WBC (Bld) 2.6 % 0-[address] [facility] Work Phone: Neutrophils (Bld) [#/Vol] 4.0 10*3/uL 2.0-7.[address] [facility] Work Phone: Neutrophils/100 WBC (Bld) 56.8 % 47-[address] [facility] Work Phone: WBC (Bld) [#/Vol] 7.0 10*3/uL 4.4-11.0 [facility] Work Phone: Beta hCG serum qualon 2021 Beta HCG ( test) Ql Negative [facility] Work Phone: Blood erythrocytes count (nu mber/volume)on 04-14-2022 RBC (Bld) [#/Vol] 4.46 10*6/uL 4.2-5.4 [facility] Work Phone: Blood hemoglobin measurement (mass/volume)on 04-14-2022 Hemoglobin (Bld) [Mass/Vol] 13.1 g/dL 12.0-15.[address] [facility] Work Phone: Blood lymphocytes/100 leukoc yteson 04-14-2022 Lymphocytes/100 WBC (Bld) 30.9 % 19-[address] [facility] Work Phone: Blood monocytes/100 leukocyt eson 04-14-2022 Monocytes/100 WBC (Bld) 9.0 % 0-10 [facility] Work Phone: Blood platelet mean volumeon 04-14-2022 Platelet mean volume (Bld) [Entitic vol] 11.0 fL 6.2-12.[address] [facility] Work Phone: Determination of erythrocyte mean corpuscular volume (MCV)on 04-14-2022 MCV (RBC) [Entitic vol] 86.1 fL 81-99 [facility] Work Phone: Hematocrit Auto (Bld) [Volum e fraction]on 04-14-2022 Hematocrit (Bld) [Volume fraction] 38.4 % 37-[address] [facility] Work Phone: Laboratory - Hematology and Cell countson 04-14-2022 Erythrocyte distribution width (RBC) [Entitic vol] 40.1 fL 35.1-43.[address] [facility] Work Phone: Erythrocyte distribution width (RBC) [Ratio] 12.8 % 11.6-14.[address] [facility] Work Phone: [phone] Immature granulocytes/100 WBC (Bld) 0.100 % 0.0-0.[address] [facility] Work Phone: [phone] Comment on above: IG% - Immature Granu locytes (promyelocytes, myelocytes and metamyelocytes) > 1% indicates that a LEFT SHIFT is Present. MCH (RBC) [Entitic mass] 29.4 pg 27.0-32.[address] [facility] Work Phone: [phone] Nucleated RBC/100 WBC (Bld) [Ratio] 0 % 0-[address] [facility] Work Phone: [phone] MCHC Auto (RBC) [Mass/Vol]on 04-14-2022 MCHC (RBC) [Mass/Vol] 34.1 g/dL 32-36 [facility] Work Phone: [phone] Platelets bldon 04-14-2022 Platelets (Bld) [#/Vol] 276 10*3/uL 150-[address] [facility] Work Phone: [phone] Basophil percentageon 2021 WBC (Bld) [#/Vol] 23.7 10*3/uL 4.4-11.0 [facility] Work Phone: [phone] Blood erythrocytes count (nu mber/volume)on 11-07-2021 RBC (Bld) [#/Vol] 3.87 10*6/uL 4.2-5.4 [facility] Work Phone: [phone] Blood hemoglobin measurement (mass/volume)on 11-07-2021 Hemoglobin (Bld) [Mass/Vol] 12.0 g/dL 12.0-15.[address] [facility] Work Phone: [phone] Blood platelet mean volumeon 11-07-2021 Platelet mean volume (Bld) [Entitic vol] 12.0 fL 6.2-12.[address] [facility] Work Phone: [phone] Determination of erythrocyte mean corpuscular volume (MCV)on 11-07-2021 MCV (RBC) [Entitic vol] 93.0 fL 81-99 [facility] Work Phone: Hematocrit Auto (Bld) [Volum e fraction]on 11-07-2021 Hematocrit (Bld) [Volume fraction] 36.0 % 37-[address] [facility] Work Phone: Laboratory - Hematology and Cell countson 11-07-2021 Erythrocyte distribution width (RBC) [Entitic vol] 43.1 fL 35.1-43.[address] [facility] Work Phone: Erythrocyte distribution width (RBC) [Ratio] 12.8 % 11.6-14.[address] [facility] Work Phone: [phone] MCH (RBC) [Entitic mass] 31.0 pg 27.0-32.[address] [facility] Work Phone: MCHC Auto (RBC) [Mass/Vol]on 11-07-2021 MCHC (RBC) [Mass/Vol] 33.3 g/dL 32-36 [facility] Work Phone: Platelets bldon 11-07-2021 Platelets (Bld) [#/Vol] 165 10*3/uL 150-[address] [facility] Work Phone: Absolute lymphocyte counton 11-06-2021 Lymphocytes Auto (Unsp spec) [#/Vol] 1.11 10*3/uL 0.83-4.[address] [facility] Work Phone: Basophil percentageon 2021 Basophils/100 WBC (Bld) 0.2 % 0-1 [facility] Work Phone: Eosinophils/100 WBC (Bld) 0.0 % 0-[address] [facility] Work Phone: Neutrophils (Bld) [#/Vol] 25.1 10*3/uL 2.0-7.[address] [facility] Work Phone: Neutrophils/100 WBC (Bld) 91.0 % 47-[address] [facility] Work Phone: Blood lymphocytes/100 leukoc yteson 11-06-2021 Lymphocytes/100 WBC (Bld) 4.0 % 19-[address] [facility] Work Phone: Blood monocytes/100 leukocyt eson 11-06-2021 Monocytes/100 WBC (Bld) 4.3 % 0-10 [facility] Work Phone: Laboratory - Hematology and Cell countson 11-06-2021 Immature granulocytes/100 WBC (Bld) 0.500 % 0.0-0.[address] [facility] Work Phone: Comment on above: IG% - Immature Granu locytes (promyelocytes, myelocytes and metamyelocytes) > 1% indicates that a LEFT SHIFT is Present. Nucleated RBC/100 WBC (Bld) [Ratio] 0 % 0-[address] [facility] Work Phone: Laboratory - Chemistry and C hemistry - challengeon 10-26-2021 Glucose Ql (U) Negative [facility] Work Phone: Laboratory - Urinalysison Protein Ql (U) Negative [facility] Work Phone: Basophil percentageon 2021 Basophil percentage 0 SEEN /hpf [facility] Work Phone: Bilirubin Test strip Ql (U)o n 10-17-2021 Bilirubin Ql (U) Negative Negative [facility] Work Phone: Culture, urineon 10-17-2021 Bacteria identified Cx Nom (U) Positive [facility] Work Phone: Ketones Test strip Ql (U)on 10-17-2021 Ketones Ql (U) Negative Negative [facility] Work Phone: Mucus LM Ql (Urine sed)on Mucus Ql (Urine sed) 0 SEEN /hpf [facility] Work Phone: Nitrite Test strip Ql (U)on 10-17-2021 Nitrite Ql (U) Negative Negative [facility] Work Phone: Protein Test strip Ql (U)on 10-17-2021 Protein Ql (U) Negative Negative [facility] Work Phone: Squamous epithelial cells de tection in urine sediment by light microscopyon 10-17-2021 Epithelial cells.squamous LM Ql (Urine sed) 0-5 SEEN /hpf [facility] Work Phone: Urine blood detectionon - RBC Ql (U) Negative Negative [facility] Work Phone: RBC Ql (U) 0 SEEN /hpf [facility] Work Phone: Urine clarityon 10-17-2021 Clarity (U) Clear Clear [facility] Work Phone: Urine color determinationon 10-17-2021 Color (U) Yellow Yellow [facility] Work Phone: Urine glucose detectionon Glucose Ql (U) Normal mg/dl Normal [facility] Work Phone: Urine leukocyte esterase det ection by dipstickon 10-17-2021 Leukocyte esterase Test strip Ql (U) Negative Negative [facility] Work Phone: Urine pHon 10-17-2021 pH (U) 8.0 [pH] [facility] Work Phone: Urine sediment bacteria coun t by microscopy (number/high power field)on 10-17-2021 Bacteria LM.HPF (Urine sed) [#/Area] 1 /[HPF] None Seen [facility] Work Phone: Urine specific gravity measu rementon 10-17-2021 Specific gravity (U) [Rel density] 1.[address] [facility] Work Phone: Urobilinogen Auto test strip Ql (U)on 10-17-2021 Urobilinogen Ql (U) Normal mg/dl Normal [facility] Work Phone: Laboratory - Chemistry and C hemistry - challengeon 10-12-2021 Glucose Ql (U) Negative [facility] Work Phone: Laboratory - Urinalysison Protein Ql (U) Negative [facility] Work Phone: Laboratory - Chemistry and C hemistry - challengeon 10-06-2021 Glucose Ql (U) Negative [facility] Work Phone: Laboratory - Urinalysison Protein Ql (U) Negative [facility] Work Phone: No Panel Informationon 10-06 Group B Streptococcus Culture Group B Beta Streptococcus is not isolated. [facility] Work Phone: Laboratory - Chemistry and C hemistry - challengeon 09-21-2021 Glucose Ql (U) Negative [facility] Work Phone: Laboratory - Urinalysison Protein Ql (U) Negative [facility] Work Phone: Laboratory - Chemistry and C hemistry - challengeon 09-06-2021 Glucose Ql (U) Negative [facility] Work Phone: Laboratory - Urinalysison Protein Ql (U) Negative [facility] Work Phone: Laboratory - Chemistry and C hemistry - challengeon 08-23-2021 Glucose Ql (U) Negative [facility] Work Phone: Laboratory - Urinalysison Protein Ql (U) Negative [facility] Work Phone: Absolute lymphocyte counton 08-10-2021 Lymphocytes Auto (Unsp spec) [#/Vol] 1.72 10*3/uL 0.83-4.[address] [facility] Work Phone: Basophil percentageon 2021 Basophils/100 WBC (Bld) 0.3 % 0-1 [facility] Work Phone: Eosinophils/100 WBC (Bld) 1.0 % 0-[address] [facility] Work Phone: Neutrophils (Bld) [#/Vol] 6.9 10*3/uL 2.0-7.[address] [facility] Work Phone: Neutrophils/100 WBC (Bld) 73.2 % 47-[address] [facility] Work Phone: WBC (Bld) [#/Vol] 9.4 10*3/uL 4.4-11.0 [facility] Work Phone: Blood erythrocytes count (nu mber/volume)on 08-10-2021 RBC (Bld) [#/Vol] 4.08 10*6/uL 4.2-5.4 [facility] Work [facility]: Blood hemoglobin measurement (mass/volume)on 08-10-2021 Hemoglobin (Bld) [Mass/Vol] 12.7 g/dL 12.0-15.[address] [facility] Work Phone: Blood lymphocytes/100 leukoc yteson 08-10-2021 Lymphocytes/100 WBC (Bld) 18.2 % 19-[address] [facility] Work Phone: Blood monocytes/100 leukocyt eson 08-10-2021 Monocytes/100 WBC (Bld) 6.8 % 0-10 [facility] Work Phone: Blood platelet mean volumeon 08-10-2021 Platelet mean volume (Bld) [Entitic vol] 11.7 fL 6.2-12.[address] [facility] Work Phone: Determination of erythrocyte mean corpuscular volume (MCV)on 08-10-2021 MCV (RBC) [Entitic vol] 91.7 fL 81-99 [facility] Work Phone: Gestational diabetes screen 1-hour screen with 50g oral glucose loadon 08-10-2021 Glucose 1 Hr post 50 g glucose PO [Mass/Vol] 121 mg/dL 70-[address] [facility] Work Phone: Hematocrit Auto (Bld) [Volum e fraction]on 08-10-2021 Hematocrit (Bld) [Volume fraction] 37.4 % 37-[address] [facility] Work Phone: Laboratory - Chemistry and C hemistry - challengeon 08-10-2021 Glucose Ql (U) Negative [facility] Work Phone: Laboratory - Hematology and Cell countson 08-10-2021 Erythrocyte distribution width (RBC) [Entitic vol] 42.6 fL 35.1-43.[address] [facility] Work Phone: Erythrocyte distribution width (RBC) [Ratio] 12.7 % 11.6-14.[address] [facility] Work Phone: Immature granulocytes/100 WBC (Bld) 0.500 % 0.0-0.[address] [facility] Work Phone: Comment on above: IG% - Immature Granu locytes (promyelocytes, myelocytes and metamyelocytes) > 1% indicates that a LEFT SHIFT is Present. MCH (RBC) [Entitic mass] 31.1 pg 27.0-32.[address] [facility] Work Phone: Nucleated RBC/100 WBC (Bld) [Ratio] 0 % 0-[address] [facility] Work Phone: Laboratory - Urinalysison Protein Ql (U) Negative [facility] Work Phone: MCHC Auto (RBC) [Mass/Vol]on 08-10-2021 MCHC (RBC) [Mass/Vol] 34.0 g/dL 32-36 [facility] Work Phone: Platelets bldon 08-10-2021 Platelets (Bld) [#/Vol] 185 10*3/uL 150-[address] [facility] Work Phone: Laboratory - Chemistry and C hemistry - challengeon 07-14-2021 Glucose Ql (U) Negative [facility] Work Phone: Laboratory - Urinalysison Protein Ql (U) Negative [facility] Work Phone: B-[place] [address].0 m[IU]/mL High <5.0 [facility] Comment on above: Order Comment: Speci men Type: BLOOD SPECIMEN Result Comment: LETICIA TITATIVE HCG NORMAL RANGES Weeks of Gestation (Weeks Since LMP) 3 Weeks (5.8-71.2 mIU/mL) 4 Weeks (9.5-750 mIU/mL) 5 Weeks (217-7138 mIU/mL) 6 Weeks (158-75709 mIU/mL) 7 Weeks (3697-384004 mIU/mL) 8 Weeks (97820-677812 mIU/mL) 9 Weeks (32038-576259 mIU/mL) 10 Weeks (89744-420659 mIU/mL) 12 Weeks (44168-965298 mIU/mL) Referenced to 4th IS of [facility] Performed By: #### 2 1198-7 #### [facility] CLIA [id number] [address] [place] [address] GC/CHLAMYDIA DNA DETon 04-09 C. trachomatis DNA DEVENDRA+probe Ql (Unsp spec) Negative Normal Negative for Chlamydia trachomatis by amplificaton [facility] Comment on above: Performed By: #### G CCT #### [facility] CLIA [id number] [address] [place] [address] N. gonorrhoeae DNA DEVENDRA+probe Ql (Unsp spec) Negative Normal Negative for Neisseria gonorrhoeae by amplification [facility] Comment on above: Performed By: #### G CCT #### [facility] CLIA [id number] [address] RAPID BACT VAGINOSIS (AK)on 04-09-2021 Bacterial sialidase Ql (Unsp spec) Negative Normal Negative for the presence of bacterial vaginosis. [facility] Comment on above: Order Comment: Speci men Type: MICROBIAL ISOLATE Performed By: #### R APBVAG #### [facility] CLIA [id number] [address] T vaginalis Ag Genital Ql IA on 04-09-2021 T. vaginalis Ag IA Ql (Genital specimen) TRICHOMONAS PREP RESULT: Negative for Trichomonas vaginalis antigen Normal [facility] Comment on above: Performed By: #### 6 566-4 #### [facility] CLIA [id number] [address] [place] [address] [facility] TYPE AND SCREENon 04-09-2021 ABO O Normal [facility] Comment on above: Order Comment: Speci men Type: BLOOD SPECIMEN Performed By: #### T SCR #### [facility] CLIA [id number] [address] HISTORICAL AB SCR STATUS Negative Normal [facility] Comment on above: Order Comment: Speci men Type: BLOOD SPECIMEN Performed By: #### T SCR #### [facility] CLIA [id number] [address] Rh Nom (Bld) Positive Normal [facility] Comment on above: Order Comment: Speci men Type: BLOOD SPECIMEN Performed By: #### T SCR #### [facility] CLIA [id number] [address] TYPE AND SCREEN EXPIRATION 04/12/2021 23:59 Normal [facility] Comment on above: Order Comment: Speci men Type: BLOOD SPECIMEN Performed By: #### T SCR #### [facility] CLIA [id number] [address] Urinalysis complete panel (U )on 04-09-2021 Bacteria LM.HPF (Urine sed) [#/Area] Few Abnormal None Seen [facility] Comment on above: Order Comment: Speci men Type: URINE SPECIMEN Performed By: #### 2 4356-8 #### [facility] CLIA [id number] [address] [place] [address] [facility] Bilirubin Ql (U) Negative Normal Negative [facility] Comment on above: Order Comment: Speci men Type: URINE SPECIMEN Performed By: #### 2 4356-8 #### [facility] CLIA [id number] [address] [place] [address] [facility] Clarity (Unsp spec) Clear Normal Clear [facility] Comment on above: Order Comment: Speci men Type: URINE SPECIMEN Performed By: #### 2 4356-8 #### [facility] CLIA [id number] [address] [facility] [place] [address] [place] Color (U) Yellow Normal Yellow [facility] Comment on above: Order Comment: Speci men Type: URINE SPECIMEN Performed By: #### 2 4356-8 #### [facility] CLIA [id number] [address] [facility] [place] [address] [place] Epithelial cells LM.HPF (Urine sed) [#/Area] Few Normal [facility] Comment on above: Order Comment: Speci men Type: URINE SPECIMEN Performed By: #### 2 4356-8 #### [facility] CLIA [id number] [address] [facility] [place] [address] [facility] Glucose Test strip (U) [Mass/Vol] Negative Normal Negative [facility] Comment on above: Order Comment: Speci men Type: URINE SPECIMEN Performed By: #### 2 4356-8 #### [facility] CLIA [id number] [address] [facility] [place] [address] [place] Hemoglobin Ql (U) Trace Abnormal Negative [facility] Comment on above: Order Comment: Speci men Type: URINE SPECIMEN Performed By: #### 2 4356-8 #### [facility] CLIA [id number] [address] [facility] [place] [address] [place] Ketones Ql (U) Negative Normal Negative [facility] Comment on above: Order Comment: Speci men Type: URINE SPECIMEN Performed By: #### 2 4356-8 #### [facility] CLIA [id number] [address] [facility] [place] [address] [place] Leukocyte esterase Test strip Ql (U) Negative Normal Negative [facility] Comment on above: Order Comment: Speci men Type: URINE SPECIMEN Performed By: #### 2 4356-8 #### [facility] CLIA [id number] [address] [facility] [place] [address] [place] Nitrite Ql (U) Negative Normal Negative [facility] Comment on above: Order Comment: Speci men Type: URINE SPECIMEN Performed By: #### 2 4356-8 #### [facility] CLIA [id number] [address] [place] [address] [facility] pH (U) 7.5 [pH] Normal 5.0-8.0 [facility] Comment on above: Order Comment: Speci men Type: URINE SPECIMEN Performed By: #### 2 4356-8 #### [facility] CLIA [id number] [address] [place] [address] [facility] Protein (U) [Mass/Vol] Negative Normal Negative [facility] Comment on above: Order Comment: Speci men Type: URINE SPECIMEN Performed By: #### 2 4356-8 #### [facility] CLIA [id number] [address] [place] [address] [facility] RBC LM.HPF (Urine sed) [#/Area] 0-3 /HPF Normal 0-3 /HPF [facility] Comment on above: Order Comment: Speci men Type: URINE SPECIMEN Performed By: #### 2 4356-8 #### [facility] CLIA [id number] [address] [place] [address] [facility] Specific gravity (U) [Rel density] 1.020 Normal 1.005-1.030 [facility] Comment on above: Order Comment: Speci men Type: URINE SPECIMEN Performed By: #### 2 4356-8 #### [facility] CLIA [id number] 225 [place] [address] [facility] Urobilinogen Ql (U) 1.0 EU/dL Normal 0.2-1.0 EU/dL [facility] Comment on above: Order Comment: Speci men Type: URINE SPECIMEN Performed By: #### 2 4356-8 #### [facility] CLIA [id number] [address] [place] [address] [facility] OF [place] WBC LM.HPF (Urine sed) [#/Area] 0-5 /HPF Normal 0-5 /HPF [facility] Comment on above: Order Comment: Speci men Type: URINE SPECIMEN Performed By: #### 2 4356-8 #### [facility] CLIA [id number] [address] [place] [id number] [place] [address] OF [facility] .Urinalysis Microscopic (AO) on 12-22-2020 UA Bacteria 1+ /hpf Abnormal [facility] ([place]) Comment on above: Performed By: #### U A, PREGU, UAMICAO #### [address] [address] UA Mucous 4+ /hpf Normal [facility] ([place] Comment on above: Performed By: #### U A, PREGU, UAMICAO #### [place] [address] UA RBC 0-5 Abnormal None Seen [facility] ([place] Comment on above: Performed By: #### U A, PREGU, UAMICAO #### [place] [address] UA Squam Epithelial LOADED Abnormal None [facility] Comment on above: Performed By: #### U A, PREGU, UAMICAO #### [place] [address] UA WBC 0-5 Abnormal None Seen [facility] ([place] Comment on above: Performed By: #### U A, PREGU, UAMICAO #### [place] [address] PREGUon 12-22-2020 HCG ( test) Ql (U) Negative Normal [facility] ([place]) Comment on above: Performed By: #### U A, PREGU, UAMICAO #### [place] [address] test (u) int Not detected Invalid Interpretation Code [facility] ([place]) Comment on above: Performed By: #### U A, PREGU, UAMICAO #### [place] [address] UAon 12-22-2020 Color (U) Yellow Normal [facility] ([place] Comment on above: Performed By: #### U A, PREGU, UAMICAO #### [place] [address] Glucose (U) [Mass/Vol] Negative Normal Negative [facility] ([place]) Comment on above: Performed By: #### U A, PREGU, UAMICAO #### [place] [address] Ketones Ql (U) Negative Normal Negative [facility] ([place] Comment on above: Performed By: #### U A, PREGU, UAMICAO #### [place] [address] UA Appear Cloudy Abnormal Clear [facility] ([place] Comment on above: Performed By: #### U A, PREGU, UAMICAO #### [place] [address] UA Blood Negative Normal Negative [facility] ([place] Comment on above: Performed By: #### U A, PREGU, UAMICAO #### [place] [address] UA Leuk Est Negative Normal Negative [facility] ([place] Comment on above: Performed By: #### U A, PREGU, UAMICAO #### [place] [address] UA Nitrite Negative Normal Negative [facility] ([place] Comment on above: Performed By: #### U A, PREGU, UAMICAO #### [place] [address] UA pH 6.0 Normal 5.0 - 8.0 [facility] ([place] Comment on above: Performed By: #### U A, PREGU, UAMICAO #### [place] [address] UA Protein Negative Normal Negative [facility] ([place] Comment on above: Performed By: #### U A, PREGU, UAMICAO #### [address] [address] UA Spec Grav >=1.030 Abnormal 1.015-1.025 [facility] ([place]) Comment on above: Performed By: #### U A, PREGU, UAMICAO #### [address] [address] UA Specimen Type Clean Catch Normal [facility] ([place] Comment on above: Performed By: #### U A, PREGU, UAMICAO #### [address] [address] UA Urobilinogen 0.2 E.U./dL Normal 0.2-1.0 [facility] ([place]) Comment on above: Performed By: #### U A PREGU, UAMICAO #### [address] [address] Urobilinogen (U) [Mass/Vol] Negative Normal Negative [facility] ([place] Comment on above: Performed By: #### U A PREGU, UAMICAO #### [address] [address] COVID PCR[facility] CORONAVIRUS 2019,PCR NOT DETECTED Normal Not Detected [facility] Comment on above: Result Comment: This assay [...] patient management decisions. Fact sheet for providers: https://www.fda.gov/media/700609/download Fact sheet for patients: https://www.fda.gov/media/341533/download This test has received [facility] Emergency Use Authorization (EUA) and has been [...] is terminated or revoked sooner. [facility] ([facility]) is certified under CLIA-88 as qualified to perform high complexity testing. This tests analytical performance characteristics have been determined by [facility]. Testing is performed at [facility] is located at [address] [place] [address] (CLIA License #[id number], CAP #[id number]). Performed By: #### C VCLA #### [facility] [address] [place] [address] COVID PCR, SCREENING CONGREG ATEon 12-18-2019 Lab Specimen Source Nasal, Nasopharyngeal Normal [facility] Comment on above: Performed By: #### C VCLA #### [facility] [address] [place] [address] Vital Signs Date Time Vital Sign Value Performing Clinician [place] mendoza 03-10-2025 13:06-0400 Body height 180.34 cm No Primary Care Physician [facility] 03-10-2025 13:06-0400 Body mass index (BMI) [Ratio] 37.7 kg/m2 No Primary Care Physician [facility] 03-10-2025 13:06-0400 Body weight 122.64 kg No Primary Care Physician [facility] 03-10-2025 13:06-0400 Diastolic blood pressure 80 mm[Hg] No Primary Care Physician [facility] 03-10-2025 13:06-0400 Systolic blood pressure 129 mm[Hg] No Primary Care Physician [facility] 03-07-2025 23:12-0400 Diastolic blood pressure 73 mm[Hg] No Primary Care Physician [facility] 03-07-2025 23:12-0400 Heart rate 95 /min No Primary Care Physician [facility] 03-07-2025 23:12-0400 Systolic blood pressure 134 mm[Hg] No Primary Care Physician [facility] 03-07-2025 21:50-0400 Body temperature 97.8 [degF] No Primary Care Physician [facility] 03-07-2025 21:50-0400 Respiratory rate 16 /min No Primary Care Physician [facility] 03-07-2025 21:43-0400 SaO2% (BldA) [Mass fraction] 98 % No Primary Care Physician [facility] 03-07-2025 21:37-0400 Body height 180.34 cm No Primary Care Physician [facility] 03-07-2025 21:37-0400 Body mass index (BMI) [Ratio] 38.4 kg/m2 No Primary Care Physician [facility] 03-07-2025 21:37-0400 Body weight 125 kg No Primary Care Physician [facility] 03-03-2025 15:17-0400 Body temperature 97.7 [degF] No Primary Care Physician [facility] 03-03-2025 15:17-0400 Respiratory rate 18 /min No Primary Care Physician [facility] 03-03-2025 15:17-0400 SaO2% (BldA) [Mass fraction] 97 % No Primary Care Physician [facility] 03-03-2025 15:16-0400 Diastolic blood pressure 77 mm[Hg] No Primary Care Physician [facility] 03-03-2025 15:16-0400 Heart rate 92 /min No Primary Care Physician [facility] 03-03-2025 15:16-0400 Systolic blood pressure 120 mm[Hg] No Primary Care Physician [facility] 03-03-2025 15:06-0400 Body height 180.34 cm No Primary Care Physician [facility] 03-03-2025 15:06-0400 Body mass index (BMI) [Ratio] 37.5 kg/m2 No Primary Care Physician [facility] 03-03-2025 15:06-0400 Body weight 122.01 kg No Primary Care Physician [facility] 03-03-2025 13:36-0400 Body height 177.8 cm No Primary Care Physician [facility] 03-03-2025 13:36-0400 Body mass index (BMI) [Ratio] 38.3 kg/m2 No Primary Care Physician [facility] 03-03-2025 13:36-0400 Body weight 121.13 kg No Primary Care Physician [facility] 03-03-2025 13:36-0400 Diastolic blood pressure 72 mm[Hg] No Primary Care Physician [facility] 03-03-2025 13:36-0400 Systolic blood pressure 123 mm[Hg] No Primary Care Physician [facility] 02-18-2025 14:45-0400 Body height 177.8 cm No Primary Care Physician [facility] 02-18-2025 14:45-0400 Body mass index (BMI) [Ratio] 38.7 kg/m2 No Primary Care Physician [facility] 02-18-2025 14:45-0400 Body weight 122.49 kg No Primary Care Physician [facility] 02-18-2025 14:45-0400 Diastolic blood pressure 59 mm[Hg] No Primary Care Physician [facility] 02-18-2025 14:45-0400 Systolic blood pressure 106 mm[Hg] No Primary Care Physician [facility] 02-13-2025 11:59-0400 Heart rate 86 /min No Primary Care Physician [facility] 02-13-2025 11:59-0400 SaO2% (BldA) [Mass fraction] 96 % No Primary Care Physician [facility] 02-13-2025 11:57-0400 Body temperature 97.8 [degF] No Primary Care Physician [facility] 02-13-2025 11:57-0400 Diastolic blood pressure 60 mm[Hg] No Primary Care Physician [facility] 02-13-2025 11:57-0400 Respiratory rate 16 /min No Primary Care Physician [facility] 02-13-2025 11:57-0400 Systolic blood pressure 119 mm[Hg] No Primary Care Physician [facility] 02-13-2025 11:44-0400 Body height 177.8 cm No Primary Care Physician [facility] 02-13-2025 11:44-0400 Body mass index (BMI) [Ratio] 38.7 kg/m2 No Primary Care Physician [facility] 02-13-2025 11:44-0400 Body weight 122.5 kg No Primary Care Physician [facility] 2025 10:41-0400 Body height 177.8 cm No Primary Care Physician [facility] 2025 10:41-0400 Body mass index (BMI) [Ratio] 37.9 kg/m2 No Primary Care Physician [facility] 2025 10:41-0400 Body weight 119.97 kg No Primary Care Physician [facility] 2025 10:41-0400 Diastolic blood pressure 81 mm[Hg] No Primary Care Physician [facility] 2025 10:41-0400 Systolic blood pressure 118 mm[Hg] No Primary Care Physician [facility] 01-23-2025 10:44-0400 Body height 177.8 cm No Primary Care Physician [facility] 01-23-2025 10:44-0400 Body mass index (BMI) [Ratio] 37.9 kg/m2 No Primary Care Physician [facility] 01-23-2025 10:44-0400 Body weight 119.86 kg No Primary Care Physician [facility] 01-23-2025 10:44-0400 Diastolic blood pressure 73 mm[Hg] No Primary Care Physician [facility] 01-23-2025 10:44-0400 Systolic blood pressure 112 mm[Hg] No Primary Care Physician [facility] 01-06-2025 14:59-0400 Body height 177.8 cm No Primary Care Physician [facility] 01-06-2025 14:59-0400 Body mass index (BMI) [Ratio] 37.3 kg/m2 No Primary Care Physician [facility] 01-06-2025 14:59-0400 Body weight 118.16 kg No Primary Care Physician [facility] 01-06-2025 14:59-0400 Diastolic blood pressure 73 mm[Hg] No Primary Care Physician [facility] 01-06-2025 14:59-0400 Systolic blood pressure 108 mm[Hg] No Primary Care Physician [facility] 12-25-2024 10:52-0400 Heart rate 74 /min No Primary Care Physician [facility] 12-25-2024 10:52-0400 SaO2% (BldA) [Mass fraction] 97 % No Primary Care Physician [facility] 12-25-2024 10:05-0400 Body temperature 98.2 [degF] No Primary Care Physician [facility] 12-25-2024 10:05-0400 Diastolic blood pressure 63 mm[Hg] No Primary Care Physician [facility] 12-25-2024 10:05-0400 Respiratory rate 16 /min No Primary Care Physician [facility] 12-25-2024 10:05-0400 Systolic blood pressure 118 mm[Hg] No Primary Care Physician [facility] 12-25-2024 09:54-0400 Body height 177.8 cm No Primary Care Physician [facility] 12-25-2024 09:54-0400 Body mass index (BMI) [Ratio] 37.9 kg/m2 No Primary Care Physician [facility] 12-25-2024 09:54-0400 Body weight 120 kg No Primary Care Physician [facility] 12-25-2024 08:58-0400 Body height 180.34 cm No Primary Care Physician [facility] 12-25-2024 08:57-0400 Body mass index (BMI) [Ratio] 36.1 kg/m2 No Primary Care Physician [facility] 12-25-2024 08:57-0400 Body weight 117.59 kg No Primary Care Physician [facility] 12-25-2024 08:57-0400 Diastolic blood pressure 77 mm[Hg] No Primary Care Physician [facility] 12-25-2024 08:57-0400 Systolic blood pressure 117 mm[Hg] No Primary Care Physician [facility] 12-20-2024 08:29-0400 Body height 180.34 cm No Primary Care Physician [facility] 12-20-2024 08:29-0400 Body mass index (BMI) [Ratio] 36.5 kg/m2 No Primary Care Physician [facility] 12-20-2024 08:29-0400 Body weight 118.84 kg No Primary Care Physician [facility] 12-20-2024 08:29-0400 Diastolic blood pressure 78 mm[Hg] No Primary Care Physician [facility] 12-20-2024 08:29-0400 Systolic blood pressure 114 mm[Hg] No Primary Care Physician [facility] 11-21-2024 10:42-0400 Body height 180.34 cm No Primary Care Physician [facility] 11-21-2024 10:42-0400 Body mass index (BMI) [Ratio] 36.1 kg/m2 No Primary Care Physician [facility] 11-21-2024 10:42-0400 Body weight 117.48 kg No Primary Care Physician [facility] 11-21-2024 10:42-0400 Diastolic blood pressure 68 mm[Hg] No Primary Care Physician [facility] 11-21-2024 10:42-0400 Systolic blood pressure 113 mm[Hg] No Primary Care Physician [facility] 10-25-2024 18:55-0400 Body height 180.34 cm No Primary Care Physician [facility] 10-25-2024 18:55-0400 Body mass index (BMI) [Ratio] 36.1 kg/m2 No Primary Care Physician [facility] 10-25-2024 18:55-0400 Body temperature 97.9 [degF] No Primary Care Physician [facility] 10-25-2024 18:55-0400 Body weight 117.66 kg No Primary Care Physician [facility] 10-25-2024 18:55-0400 Diastolic blood pressure 79 mm[Hg] No Primary Care Physician [facility] 10-25-2024 18:55-0400 Heart rate 102 /min No Primary Care Physician [facility] 10-25-2024 18:55-0400 Respiratory rate 19 /min No Primary Care Physician [facility] 10-25-2024 18:55-0400 SaO2% (BldA) [Mass fraction] 98 % No Primary Care Physician [facility] 10-25-2024 18:55-0400 Systolic blood pressure 136 mm[Hg] No Primary Care Physician [facility] 10-21-2024 08:39-0400 Body mass index (BMI) [Ratio] 36 kg/m2 No Primary Care Physician [facility] 10-21-2024 08:39-0400 Body weight 117.08 kg No Primary Care Physician [facility] 10-21-2024 08:39-0400 Diastolic blood pressure 71 mm[Hg] No Primary Care Physician [facility] 10-21-2024 08:39-0400 Systolic blood pressure 115 mm[Hg] No Primary Care Physician [facility] 09-26-2024 13:48-0400 Body height 180.34 cm No Primary Care Physician [facility] 09-26-2024 13:47-0400 Body mass index (BMI) [Ratio] 35.9 kg/m2 No Primary Care Physician [facility] 09-26-2024 13:47-0400 Body weight 117.02 kg No Primary Care Physician [facility] 09-26-2024 13:47-0400 Diastolic blood pressure 73 mm[Hg] No Primary Care Physician [facility] 09-26-2024 13:47-0400 Systolic blood pressure 123 mm[Hg] No Primary Care Physician [facility] 09-04-2024 10:55-0400 Body height 180.34 cm No Primary Care Physician [facility] 09-04-2024 10:54-0400 Body mass index (BMI) [Ratio] 35.6 kg/m2 No Primary Care Physician [facility] 09-04-2024 10:54-0400 Body weight 115.77 kg No Primary Care Physician [facility] 09-04-2024 10:54-0400 Diastolic blood pressure 73 mm[Hg] No Primary Care Physician [facility] 09-04-2024 10:54-0400 Systolic blood pressure 113 mm[Hg] No Primary Care Physician [facility] 08-30-2024 02:37-0500 Body temperature 98 [degF] No Primary Care Physician [facility] 08-30-2024 02:37-0500 Diastolic blood pressure 74 mm[Hg] No Primary Care Physician [facility] 08-30-2024 02:37-0500 Heart rate 73 /min No Primary Care Physician [facility] 08-30-2024 02:37-0500 Respiratory rate 18 /min No Primary Care Physician [facility] 08-30-2024 02:37-0500 SaO2% (BldA) [Mass fraction] 100 % No Primary Care Physician [facility] 08-30-2024 02:37-0500 Systolic blood pressure 130 mm[Hg] No Primary Care Physician [facility] 08-30-2024 00:40-0500 Body height 180.34 cm No Primary Care Physician [facility] 08-30-2024 00:40-0500 Body mass index (BMI) [Ratio] 16.5 kg/m2 No Primary Care Physician [facility] 08-30-2024 00:40-0500 Body weight 53.72 kg No Primary Care Physician [facility] 08-29-2024 11:11-0500 Body mass index (BMI) [Ratio] 37.2 kg/m2 No Primary Care Physician [facility] 08-29-2024 11:11-0500 Body weight 117.65 kg No Primary Care Physician [facility] 08-29-2024 11:11-0500 Diastolic blood pressure 78 mm[Hg] No Primary Care Physician [facility] 08-29-2024 11:11-0500 Systolic blood pressure 121 mm[Hg] No Primary Care Physician [facility] 06-16-2024 21:22-0500 Body temperature 98 [degF] No Primary Care Physician [facility] 06-16-2024 21:22-0500 Diastolic blood pressure 84 mm[Hg] No Primary Care Physician [facility] 06-16-2024 21:22-0500 Heart rate 80 /min No Primary Care Physician [facility] 06-16-2024 21:22-0500 Respiratory rate 16 /min No Primary Care Physician [facility] 06-16-2024 21:22-0500 SaO2% (BldA) [Mass fraction] 98 % No Primary Care Physician [facility] 06-16-2024 21:22-0500 Systolic blood pressure 130 mm[Hg] No Primary Care Physician [facility] 06-16-2024 20:27-0500 Body mass index (BMI) [Ratio] 36.8 kg/m2 No Primary Care Physician [facility] 06-16-2024 20:27-0500 Body weight 116.66 kg No Primary Care Physician [facility] 08-15-2023 19:40-0500 Body temperature 97.2 [degF] [facility] 08-15-2023 19:40-0500 Diastolic blood pressure 71 mm[Hg] [facility] 08-15-2023 19:40-0500 Heart rate 62 /min [facility] 08-15-2023 19:40-0500 Respiratory rate 12 /min [facility] 08-15-2023 19:40-0500 SaO2% (BldA) [Mass fraction] 99 % [facility] 08-15-2023 19:40-0500 Systolic blood pressure 122 mm[Hg] [facility] 08-15-2023 17:35-0500 Body height 180.34 cm [facility] 08-15-2023 17:35-0500 Body mass index (BMI) [Ratio] 38.5 kg/m2 [facility] 08-15-2023 17:35-0500 Body weight 125.24 kg [facility] 04-14-2022 16:16-0400 Body height 180.34 cm No Primary Care Physician [facility] Work Phone: 04-14-2022 16:16-0400 Body mass index (BMI) [Ratio] 30.7 kg/m2 No Primary Care Physician [facility] Work Phone: 04-14-2022 16:16-0400 Body temperature 98.1 [degF] No Primary Care Physician [facility] Work Phone: 04-14-2022 16:16-0400 Body weight 99.79 kg No Primary Care Physician [facility] Work Phone: 04-14-2022 16:16-0400 Diastolic blood pressure 90 mm[Hg] No Primary Care Physician [facility] Work Phone: 04-14-2022 16:16-0400 Heart rate 109 /min No Primary Care Physician [facility] Work Phone: 04-14-2022 16:16-0400 Respiratory rate 18 /min No Primary Care Physician [facility] Work Phone: 04-14-2022 16:16-0400 SaO2% (BldA) [Mass fraction] 97 % No Primary Care Physician [facility] Work Phone: 04-14-2022 16:16-0400 Systolic blood pressure 140 mm[Hg] No Primary Care Physician [facility] Work Phone: 12-21-2021 14:42-0400 Body mass index (BMI) [Percentile] Per age and sex 96.7 % No Primary Care Physician [facility] Work Phone: 12-21-2021 14:42-0400 Body mass index (BMI) [Ratio] 34.2 kg/m2 No Primary Care Physician [facility] Work Phone: 12-21-2021 14:42-0400 Body weight 111.24 kg No Primary Care Physician [facility] Work Phone: 12-21-2021 14:42-0400 Diastolic blood pressure 70 mm[Hg] No Primary Care Physician [facility] Work Phone: 12-21-2021 14:42-0400 Systolic blood pressure 110 mm[Hg] No Primary Care Physician [facility] Work Phone: 11-08-2021 12:23-0400 Body temperature 97.8 [degF] DO [facility] Work Phone: 11-08-2021 12:23-0400 Diastolic blood pressure 86 mm[Hg] DO [facility] Work Phone: 11-08-2021 12:23-0400 Heart rate 106 /min DO [facility] Work Phone: 11-08-2021 12:23-0400 Respiratory rate 16 /min DO [facility] Work Phone: 11-08-2021 12:23-0400 SaO2% (BldA) [Mass fraction] 100 % DO [facility] Work Phone: 11-08-2021 12:23-0400 Systolic blood pressure 141 mm[Hg] DO [facility] Work Phone: 11-04-2021 19:28-0400 Body height 180.34 cm [address] [facility] Work Phone: 11-04-2021 19:28-0400 Body mass index (BMI) [Ratio] 37.8 kg/m2 DO [facility] Work Phone: 11-04-2021 19:28-0400 Body weight 123.03 kg [address] [facility] Work Phone: 10-26-2021 13:44-0400 Body mass index (BMI) [Ratio] 43 kg/m2 DO [facility] Work Phone: 10-26-2021 13:44-0400 Body weight 120.[address] [facility] Work Phone: 10-26-2021 13:44-0400 Diastolic blood pressure 78 mm[Hg] DO [facility] Work Phone: 10-26-2021 13:44-0400 Systolic blood pressure 104 mm[Hg] DO [facility] Work Phone: 10-18-2021 13:13-0400 Body mass index (BMI) [Ratio] 42.3 kg/m2 DO [facility] Work Phone: 10-18-2021 13:13-0400 Body weight 118.[address] [facility] Work Phone: 10-18-2021 13:13-0400 Diastolic blood pressure 82 mm[Hg] DO [facility] Work Phone: 10-18-2021 13:13-0400 Systolic blood pressure 132 mm[Hg] DO [facility] Work Phone: 10-17-2021 18:45-0400 Body temperature 98 [degF] DO [facility] Work Phone: 10-17-2021 18:43-0400 Diastolic blood pressure 71 mm[Hg] DO [facility] Work Phone: 10-17-2021 18:43-0400 Heart rate 83 /min DO [facility] Work Phone: 10-17-2021 18:43-0400 Systolic blood pressure 119 mm[Hg] DO [facility] Work Phone: 10-17-2021 16:28-0400 Diastolic blood pressure 68 mm[Hg] DO [facility] Work Phone: 10-17-2021 16:28-0400 Heart rate 93 /min DO [facility] Work Phone: 10-17-2021 16:28-0400 Systolic blood pressure 98 mm[Hg] DO [facility] Work Phone: 10-17-2021 15:29-0400 Body height 180.34 cm DO [facility] Work Phone: 10-17-2021 15:29-0400 Body mass index (BMI) [Ratio] 36.3 kg/m2 DO [facility] Work Phone: 10-17-2021 15:29-0400 Body weight 118 kg DO [facility] Work Phone: 10-17-2021 15:25-0400 Body temperature 96.9 [degF] DO [facility] Work Phone: 10-12-2021 13:39-0400 Body mass index (BMI) [Ratio] 43 kg/m2 DO [facility] Work Phone: 10-12-2021 13:39-0400 Body weight 120.88 kg DO [facility] Work Phone: 10-12-2021 13:39-0400 Diastolic blood pressure 70 mm[Hg] DO [facility] Work Phone: 10-12-2021 13:39-0400 Systolic blood pressure 110 mm[Hg] DO [facility] Work Phone: 10-06-2021 11:18-0400 Body mass index (BMI) [Ratio] 42.2 kg/m2 DO [facility] Work Phone: 10-06-2021 11:18-0400 Body weight 118.55 kg DO [facility] Work Phone: 10-06-2021 11:18-0400 Diastolic blood pressure 70 mm[Hg] DO [facility] Work Phone: 10-06-2021 11:18-0400 Systolic blood pressure 104 mm[Hg] DO [facility] Work Phone: 09-21-2021 14:02-0400 Body mass index (BMI) [Ratio] 42.2 kg/m2 DO [facility] Work Phone: 09-21-2021 14:02-0400 Body weight 118.61 kg DO [facility] Work Phone: 09-21-2021 14:02-0400 Diastolic blood pressure 88 mm[Hg] DO [facility] Work Phone: 09-21-2021 14:02-0400 Systolic blood pressure 118 mm[Hg] DO [facility] Work Phone: 09-06-2021 13:02-0400 Body mass index (BMI) [Ratio] 41.3 kg/m2 DO [facility] Work Phone: 09-06-2021 13:02-0400 Body weight 116.11 kg DO [facility] Work Phone: 09-06-2021 13:02-0400 Diastolic blood pressure 78 mm[Hg] DO [facility] Work Phone: 09-06-2021 13:02-0400 Systolic blood pressure 112 mm[Hg] DO [facility] Work Phone: 08-23-2021 11:57-0500 Body mass index (BMI) [Ratio] 41 kg/m2 DO [facility] Work Phone: 08-23-2021 11:57-0500 Body weight 115.21 kg DO [facility] Work Phone: 08-23-2021 11:57-0500 Diastolic blood pressure 74 mm[Hg] DO [facility] Work Phone: 08-23-2021 11:57-0500 Systolic blood pressure 113 mm[Hg] DO [facility] Work Phone: 08-10-2021 08:08-0500 Body mass index (BMI) [Ratio] 40.1 kg/m2 DO [facility] Work Phone: 08-10-2021 08:08-0500 Body weight 112.71 kg DO [facility] Work Phone: 08-10-2021 08:08-0500 Diastolic blood pressure 74 mm[Hg] DO [facility] Work Phone: 08-10-2021 08:08-0500 Systolic blood pressure 110 mm[Hg] DO [facility] Work Phone: 07-14-2021 10:06-0500 Body mass index (BMI) [Ratio] 39.4 kg/m2 DO [facility] Work Phone: 07-14-2021 10:06-0500 Body weight 110.67 kg DO [facility] Work Phone: 07-14-2021 10:06-0500 Diastolic blood pressure 82 mm[Hg] DO [facility] Work Phone: 07-14-2021 10:06-0500 Systolic blood pressure 118 mm[Hg] DO [facility] Work Phone: Encounters Encounter Date Encounter Type Care Provider Facility Start: 03-13-2025 End: 03-14-2025 ambulatory No Primary Care Physician Facility:[facility] Start: 03-10-2025 End: 03-10-[address] Renate Handley MD -[facility] Work Phone: Start: 03-10-2025 End: 03-10-2025 ambulatory No Primary Care Physician -[facility] Start: 03-08-2025 ambulatory Renate Callahan lity:[facility] Start: 03-08-2025 Non-patient / Non-visit Dr. Renate Handley MD -[facility] Start: 03-07-2025 End: 03-08-2025 ambulatory No Primary Care Physician -[facility] Start: 03-07-2025 End: 03-08-[address] [facility] Work Phone: Start: 03-03-2025 ambulatory No Primary Car e Physician Facility:[facility] Start: 03-03-2025 Non-patient / Non-visit Dr. Renate Handley MD -[facility] Start: 03-03-2025 End: 03-03-2025 ambulatory No Primary Care Physician -[facility] Start: 03-03-2025 End: 03-03-[address] Renate Handley MD -[facility] Work Phone: Start: 03-03-2025 End: 03-03-[address] Renate Handley MD -[facility] Work Phone: Start: 03-03-2025 End: 03-03-2025 ambulatory No Primary Care Physician -[facility] Start: 02-18-2025 End: 02-18-[address] Renate Handley MD -[facility] Work Phone: Start: 02-18-2025 End: 02-18-2025 ambulatory No Primary Care Physician -[facility] Start: 02-13-2025 ambulatory No Primary Car e Physician Facility:[facility] Start: 02-13-2025 Non-patient / Non-visit Dr. Renate Handley MD -[facility] Start: 02-13-2025 End: 02-13-2025 ambulatory No Primary Care Physician -[facility] Start: 02-13-2025 End: 02-13-[address] Renate Handley MD -[facility] Work Phone: Start: 02-07-2025 End: 02-07-2025 ambulatory No Primary Care Physician -[facility] Start: 02-07-2025 End: 02-07-[address] Renate Handley MD -[facility] Work Phone: Start: 02-07-2025 End: 02-07-2025 ambulatory No Primary Care Physician Facility:[facility] Start: 2025 End: [address] Renate Handley MD -[facility] Work Phone: Start: 2025 End: 2025 ambulatory No Primary Care Physician -[facility] Start: 01-23-2025 End: 01-23-[address] Renate Handley MD -[facility] Work Phone: Start: 01-23-2025 End: 01-23-2025 ambulatory No Primary Care Physician -[facility] Start: 01-06-2025 End: 01-06-[address] Renate Handley MD -[facility] Work Phone: Start: 01-06-2025 End: 01-06-2025 ambulatory No Primary Care Physician -[facility] Start: 01-06-2025 End: 01-06-2025 ambulatory No Primary Care Physician Facility:[facility] Start: 12-25-2024 ambulatory No Primary Car e Physician Facility:[facility] Start: 12-25-2024 Non-patient / Non-visit Dr. Raven Modi DO -[facility] Start: 12-25-2024 End: 12-25-2024 ambulatory No Primary Care Physician -Laboratory Specimen Start: 12-25-2024 End: 12-25-[address] Raven Modi DO -[facility] Work Phone: Start: 12-25-2024 End: 12-25-[address] Raven Modi DO -[facility] Work Phone: Start: 12-25-2024 End: 12-25-2024 ambulatory No Primary Care Physician -[facility] Start: 12-25-2024 End: 12-25-2024 ambulatory No Primary Care Physician Facility:[facility] Start: 12-20-2024 End: 12-20-2024 Patient encounter procedure Dariana Eli CNM -[facility] Work Phone: Start: 12-20-2024 End: 12-20-2024 ambulatory No Primary Care Physician [facility] Work Phone: Start: 11-21-2024 End: 11-21-2024 ambulatory No Primary Care Physician [facility] Work Phone: Start: 11-21-2024 End: 11-21-[address] Renate Handley MD -[facility] Work Phone: Start: 11-21-2024 End: 11-21-[address] Renate Handley MD -[facility] Work Phone: Start: 11-21-2024 End: 11-21-2024 ambulatory No Primary Care Physician [facility] Work Phone: Start: 11-21-2024 End: 11-21-2024 ambulatory Renate Handley Facility:[facility] Start: 11-12-2024 End: 11-12-2024 ambulatory No Primary Care Physician [facility] Work Phone: Start: 11-12-2024 End: 11-12-2024 Patient encounter procedure Geneva SANCHEZ -[facility] Work Phone: Start: 11-12-2024 End: 11-12-2024 ambulatory No Primary Care Physician Facility:[facility] Start: 10-25-2024 End: 10-25-2024 Emergency department patient visit Dr. Heraclio Ornelas DO -Emergency Department Work Phone: Start: 10-21-2024 End: 10-21-2024 Patient encounter procedure Geneva SANCHEZ -[facility] Work Phone: Start: 10-21-2024 End: 10-21-2024 ambulatory No Primary Care Physician Facility:[facility] Start: 10-02-2024 End: 10-02-2024 ambulatory No Primary Care Physician [facility] Work Phone: Start: 10-02-2024 End: 10-02-[address] [facility] Start: 10-02-2024 End: 10-02-2024 ambulatory No Primary Care Physician Facility:[facility] Start: 09-26-2024 End: 09-26-[address] Raven Modi DO -[facility] Work Phone: Start: 09-26-2024 End: 09-26-2024 ambulatory No Primary Care Physician Facility:[facility] Start: 09-04-2024 End: 09-04-[address] Raven Modi DO -[facility] Work Phone: Start: 09-04-2024 End: 09-04-2024 ambulatory No Primary Care Physician Facility:[facility] Start: 08-30-2024 End: 08-30-2024 Emergency department patient visit No Primary Care Physician -Emergency Department Work Phone: Start: 08-29-2024 End: 08-29-2024 Patient encounter procedure Shell Curry CNM -[facility] Work Phone: Start: 08-29-2024 End: 08-29-2024 ambulatory No Primary Care Physician [facility] Work Phone: Start: 08-29-2024 End: 08-29-2024 ambulatory No Primary Care Physician Facility:[facility] Start: 08-09-2024 Non-patient / Non-visit Adri iKmble RN -[facility] Work Phone: Start: 08-09-2024 ambulatory No Primary Car e Physician Facility:[facility] Start: 06-16-2024 End: 06-16-2024 Emergency department patient visit Dr. Franco Ortiz DO -Emergency Department Work Phone: Start: 08-15-2023 End: 08-15-2023 Emergency department patient visit [facility]-Emergency Department Work Phone: Start: 04-14-2022 End: 04-14-2022 Emergency department patient visit No Primary Care Physician [facility]-Emergency Department Start: 12-21-2021 End: 12-21-2021 Patient encounter procedure No Primary Care Physician [facility] Start: 11-08-2021 Non-patient / Non-visit DO [facility] Start: 11-07-2021 Non-patient / Non-visit DO [facility] Start: 11-06-2021 Non-patient / Non-visit DO [facility] Start: 11-05-2021 Non-patient / Non-visit DO [facility] Start: 11-04-2021 Non-patient / Non-visit DO [facility] Start: 11-04-2021 End: 11-08-2021 Evaluation and management of inpatient DO [facility] Start: 10-26-2021 End: 10-26-2021 Patient encounter procedure DO [facility] Start: 10-18-2021 End: 10-18-2021 Patient encounter procedure DO [facility] Start: 10-17-2021 Non-patient / Non-visit DO [facility] Start: 10-17-2021 End: 10-17-2021 Patient encounter procedure DO [facility], Out[facility] Start: 10-12-2021 End: 10-12-2021 Patient encounter procedure DO [facility] Start: 10-06-2021 End: 10-06-2021 Patient encounter procedure DO [facility] Start: 10-06-2021 End: 10-06-2021 Patient encounter procedure DO [facility]-Laboratory, Specimen Start: 09-27-2021 End: 09-27-2021 Patient encounter procedure DO [facility]-Ultrasound, [facility] Start: 09-21-2021 End: 09-21-2021 Patient encounter procedure DO [facility] Start: 09-06-2021 End: 09-06-2021 Patient encounter procedure DO [facility] Start: 08-23-2021 End: 08-23-2021 Patient encounter procedure DO [facility] Start: 08-10-2021 End: 08-10-2021 Patient encounter procedure DO [facility]Laboratory, [facility] Start: 07-14-2021 End: 07-14-2021 Patient encounter procedure DO [facility] Procedures Date Procedure Procedure Detail Performing [...] HCV Quant by PCR testing - HCVPCR #[id number] Non Reactive: < 0.8 Equivocal: >/= 0.8 [...] MALIGNANCY.THIS SPECIMEN WAS RESCREENED PART OF OUR [employer]PAREL [employer]MINGS SALES REPRESENTATIVE PROGRAM. This liquid based Th inPrep(R) pap test was screened withthe use of an image guided system. The HPV DNA reflex c riteria were not met with this specimenresult therefore, no HPV testing was performed.Performed at: [address] [id number] Director: Sheryl Melendez MD, Phone: [phone] Start: 11-04-2021 End: 11-04-2021 Viral antigen assay DO [facility] Start: 10-17-2021 Urine culture DO [facility] Start: 10-06-2021 Group B Streptococcu s Culture DO [facility] Start: 09-27-2021 Ultrasound scan for growth DO [facility] Start: 04-09-2021 Antibody screen Comment on above: Order Comment: Speci men Type: BLOOD SPECIMEN Performed By: #### T SCR #### [facility] [id number] [address] H/O: section History of delivery, currently No [...] section History of delivery, currently Geneva 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 [...] H/O: 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 Rneate Handley MD H/O: 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 Renate Handley MD Plan of Treatment Date Care Activity Detail Author Start: 03-24-2025 ambulatory Ambulatory Facility:[facility] Start: 03-17-2025 ambulatory Ambulatory Facility:[facility] Start: 03-08-[address] [facility] Start: 03-07-[address] [facility] Start: 03-07-2025 Vital signs measurements [facility] Start: 03-07-2025 End: 03-07-[address] [facility] Start: 03-07-2025 End: 03-07-[address] [facility] Start: 03-07-[address] [facility] Start: 03-07-2025 Vital signs measurements [facility] Start: 03-07-[address] [facility] Start: 03-07-2025 Bacteria identified in Urine by Culture Urine Culture [facility] Start: 03-07-[address] [facility] Start: 03-03-[address] [facility] Start: 03-03-[address] [facility] Start: 03-03-2025 Vital signs measurements [facility] Start: 03-03-2025 End: 03-03-[address] [facility] Start: 03-03-2025 Group B Streptococcus Culture Group B Streptococcus Culture [facility] Start: 03-03-[address] [facility] Start: 02-13-2025 Bacteria identified in Urine by Culture Urine Culture [facility] Start: 02-13-2025 End: 02-13-[address] [facility] Start: 02-13-[address] [facility] Start: 02-13-[address] [facility] Start: 02-13-2025 Vital signs measurements [facility] Start: 02-13-[address] [facility] Start: 01-06-2025 CBC W Auto Differential panel - Blood [facility] Start: 01-06-2025 Measurement of glucose 2 hours after glucose challenge for glucose tolerance test [facility] Start: 01-06-2025 Serologic test for syphilis [facility] Start: 01-06-[address] [facility] Start: 12-25-2024 Bacteria identified in Urine by Culture Urine Culture [facility] Start: 12-25-2024 Cul bact xcpt urine blood/stool aerobic isol CULTURE OTHR SPECIMN AEROBIC [facility] Start: 12-25-2024 Culture bacterial quanttative colony count urine URINE CULTURE/COLONY COUNT [facility] Start: 12-25-2024 Genital Culture Genital Culture [facility] Start: 12-25-2024 Microscopic observation [Identifier] in Unspecified specimen by Gram stain [facility] Start: 12-25-2024 Smr prim src gram/giemsa stain bct fungi/cell SMEAR GRAM STAIN [facility] Start: 12-25-2024 Source specific culture [facility] Start: 12-25-[address] [facility] Start: 12-25-[address] [facility] Start: 12-25-[address] [facility] Start: 12-25-[address] [facility] Start: 12-25-2024 Vital signs measurements [facility] Start: 12-25-[address] [facility] Start: 10-25-[address] [facility] Start: 08-30-2024 Bacteria identified in Urine by Culture Urine Culture [facility] Start: 08-30-[address] [facility] Start: 08-30-[address] [facility] Start: 08-29-2024 Bacteria identified in Urine by Culture Urine Culture [facility] Start: 08-29-2024 Chlamydia deoxyribonucleic acid detection [facility] Start: 08-29-2024 Liquid based cervical cytology screening [facility] Start: 08-29-[address] [facility] Start: 06-16-[address] [facility] Start: 08-15-[address] [facility] Start: 10-17-2021 Bacteria identified in Urine by Culture Urine Culture [facility] Work Phone: Beta-hemolytic Streptococcus culture [facility] Bilirubin measuremen t, urine [facility] CBC W Auto Different ial panel - Blood [facility] Erythrocyte mean corpuscular volume determination [facility] Genital microscopy, culture and sensitivities [facility] Hematocrit [Volume Fraction] of Blood [facility] Hemoglobin [Mass/vol ume] in Blood [facility] Hemoglobin [Presence ] in Urine [facility] Leukocytes [#/volume ] in Blood [facility] Mean corpuscular hem oglobin concentration determination [facility] Mean corpuscular hem oglobin determination [facility] Measurement of gluco se 2 hours after glucose challenge for glucose tolerance test [facility] Measurement of keton es in urine using dipstick [facility] Microscopic urinalysis [facility] Neisseria gonorrhoea e rRNA [Presence] in Unspecified specimen by DEVENDRA with probe detection [facility] Neutrophil count [facility] Neutrophil percent differential count [facility] Organism count, micr oscopic method [facility] Path report.final Dx Spec [facility] Patient Education [facility] Work Phone: Patient referral [facility] Work Phone: PCR test for Chlamyd ia trachomatis [facility] pH of Urine [facility] Platelets [#/volume] in Blood [facility] Red blood cell count [facility] Red cell distributio n width determination [facility] Serologic test for syphilis [facility] Specific gravity of Urine [facility] Streptococcus agalac tiae [Presence] in Unspecified specimen by Organism specific culture [facility] Urine culture [facility] Urine culture [facility] Urine culture [facility] Urine culture [facility] Urine dipstick for glucose [facility] Urine dipstick for leukocyte esterase [facility] Urine dipstick for nitrite [facility] Urine dipstick for protein [facility] Urine examination [facility] Urine microscopy: epithelial cells [facility] Urine microscopy: red cells [facility] Urobilinogen [Presen ce] in Urine [facility] White blood cell count [facility] Immunizations Immunization Date Immunization Notes Care Provider Saji rosa 02-18-2025 tetanus toxoid, redu octavio diphtheria toxoid, and acellular pertussis vaccine, adsorbed No Primary Care Physician [facility] 06-16-2024 tetanus toxoid, redu octavio diphtheria toxoid, and acellular pertussis vaccine, adsorbed No Primary Care Physician [facility] 08-23-2021 tetanus toxoid, redu octavio diphtheria toxoid, and acellular pertussis vaccine, adsorbed DO [facility] 08-23-2021 diphtheria, tetanus toxoids and acellular pertussis vaccine, unspecified formulation DO [facility] Work Phone: Payers Date Payer Category Payer Unknown [id number] 2024 Self-pay [id number] 2024 Unknown [id number] Unknown [id number] Unknown [id number] Unknown [id number] 2.16.8 40.1.118211.3.579.2.462 Unknown [id number] 2.16.8 40.1.144391.3.579.2.462 Unknown [id number] 2.16.8 40.1.770125.3.579.2.462 Unknown [id number] 2.16.8 40.1.214278.3.579.2.462 Unknown [id number] 2.16.8 40.1.995025.3.579.2.462 Unknown [id number] 2.16.8 40.1.195749.3.579.2.462 Unknown [id number] 2.16.8 40.1.770831.3.579.2.462 Unknown [id number] 2.16.8 40.1.335546.3.579.2.462 Unknown [id number] 2.16.8 40.1.464303.3.579.2.462 Unknown [id number] 2.16.8 40.1.608113.3.579.2.462 Unknown [id number] 2.16.8 40.1.322252.3.579.2.462 Unknown [id number] 2.16.8 40.1.733186.3.579.2.462 Unknown [id number] 2.16.8 40.1.127099.3.579.2.462 Unknown [id number] 2.16.8 40.1.141845.3.579.2.462 Unknown [id number] 2.16.8 40.1.596927.3.579.2.462 Unknown [id number] 2.16.8 40.1.899721.3.579.2.462 Unknown [id number] 2.16.8 40.1.510026.3.579.2.462 Unknown [id number] 2.16.8 40.1.753545.3.579.2.462 Unknown [id number] 2.16.8 40.1.642326.3.579.2.462 Unknown [id number] 2.16.8 40.1.813500.3.579.2.462 Unknown [id number] 2.16.8 40.1.360422.3.579.2.462 Unknown [id number] 2.16.8 40.1.776910.3.579.2.462 Unknown [id number] 2.16.8 40.1.423269.3.579.2.462 Unknown [id number] 2.16.8 40.1.922136.3.579.2.462 Unknown [id number] 2.16.8 40.1.698694.3.579.2.462 Unknown [id number] 2.16.8 40.1.990613.3.579.2.462 Unknown [id number] 2.16.8 40.1.989126.3.579.2.462 Unknown [id number] 2.16.8 40.1.219474.3.579.2.462 Unknown [id number] 2.16.8 40.1.547220.3.579.2.462 Unknown [id number] 2.16.8 40.1.785492.3.579.2.462 Unknown [id number] 2.16.8 40.1.785081.3.579.2.462 Unknown [id number] 2.16.8 40.1.521081.3.579.2.462 Unknown [id number] 2.16.8 40.1.437438.3.579.2.462 Unknown [id number] 2.16.8 40.1.657005.3.579.2.462 Unknown [id number] 2.16.8 40.1.669834.3.579.2.462 Social History Date Type Detail Facility Start: 10-12-2021 End: 08-15-2023 Tobacco smoking status ALIS Unknown if ever smoked [facility] Start: 2000 Sex Assigned At Female W [facility] Start: 08-30-2024 End: 10-25-2024 Tobacco smoking status NHIS Ex-smoker (finding) [facility] Start: 08-30-2024 End: 10-07-2024 Sex Female (finding) [facility] Mental Status Date Assessment Result Facility 11-07-2021 Cognitive function Level Of Cons ciousness Appropriate [facility] Work Phone: 11-06-2021 Cognitive function Arousable To Voice/Nam e [facility] Work Phone: Clinical Notes 08-29-2024 to 03-10-2025 Note Date & Type Note Facility 03-10-2025 Progress note [facility] 03-03-2025 Radiology Diagnostic study note [facility] Imaging Services [address] [place], [place] [address] OB Biophysical Prof W/O NST MR#: [id number] Acct: [id number] Name: QUAN RODGERS KELTON Rep #: [id number] : 2000 F 25 From: Jo Woods MD PCP: Care Physician,No Primary Status: REG CLI Study:OB Biophysical Prof W/O NST Date of Exa m: 03/03/25 Exam# [id number] Ordering Dr: Renate La MD PROCEDURE: OB [...] score of 8 of 8. Reading [id number] CC: Dr. Renate Handley MD; No Primary Care Physician ~ Label Remover: Signed [facility] 02-18-2025 Progress note [facility] 02-18-2025 Progress note Note Date/Time February 18, 2025 2:59pm [facility] [address] [place] [address], [address] [place] [address] OFFICE VISIT Date of Service: 02/18/25 MR#: [id number] Acct: [id number] Name: QUAN RODGERS KELTON Rep #: [id number] : 2000 Provider: Dr. 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[employer] current occupational exposures/hazards: No pets and animals: [...] times per week duration: < 15 minutes/day aly/caodaism: None seatbelt use: always do you feel [...] - full term 8lbs 14oz Male epidural [facility] Renate Torrezalex Max Delivery Date: 11/06/21 Last Updated by: [...] Performing Provider: Renate Handley MD Performing Location: [facility] Administered by: Geneva Long on 02/18/25 14:56 Dose Route Admin Location Dispensed Lot Number Expiration Date NDC Quantitative Equity Head 0.5 mL IM Left Deltoid 0.5 mL [id number] 02/23/27 34632-884-84 SANOF [employer]-PASTEUR VIS Given Date VIS Provided [...] Cosigner Signature: Date (if applicable) CC: ~ [facility] Work Phone: 1(283) 804-224708-15-2025 Radiology Diagnostic study note [facility] Imaging Services [address] [place] [address] OB Limited With Biometrics MR#: [id number] Acct: [id number] Name: QUAN RODGERS KELTON Rep #: [id number] : 2000 F 25 From: Fercho Diallo MD PCP: Care Physician,No Primary Status: REG CLI Study:OB Limited With Biometrics Date of Exam : 02/07/25 Exam# [id number] Ordering Dr: Renate La MD PROCEDURE: OB [...] fall within normal expected range. Reading Location: [facility] CC: Dr. Renate Handley MD; No Primary Care Physician ~ Label Remover: Signed [facility]08-11-2025 Progress [facility] [address], [address] [place] [address] OFFICE VISIT Date of Service: 02/03/25 MR#: [id number] Acct: [id number] Name: QUAN RODGERS Rep #: [id number] : 2000 Provider: Dr. 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 [facility] low risk- female. unremarkable anatomy, consistent dates Orders: Orders POC Urinalysis 2 Dip (Clinic) Today 02/03/25 Stanislaw joseph MD> Date _ Renate Lainez Signature: Date (if applicable) CC: ~ [facility] [id number] Progress [facility] [address], [address] [place] [address] OFFICE VISIT Date of Service: 01/23/25 MR#: [id number] Acct: [id number] Name: QUAN RODGERS Rep #: [id number] : 2000 Provider: Dr. 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 She [...] jake SANTOS> Date _ Renate Handley MD [facility] Signature: Date (if applicable) CC: ~ [facility]07-14-2025 Progress [facility] [address] [place] [address], [address] [place] [address] OFFICE VISIT Date of Service: 01/06/25 MR#: [id number] Acct: [id number] Name: QUAN RODGERS Rep #: [id number] : 2000 Provider: Dr. 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 [facility] low risk- female. unremarkable anatomy, consistent dates (7) Sterilization: Status: Acute Comment: title 19 signed 01/06 Orders: Orders POC Urinalysis 2 Dip (Clinic) Today 01/06/25 1529 jake SANTOS> Date _ Renate Handley MD Cosigner Signature: Date (if applicable) CC: ~ [facility]07-14-2025 Progress note Author Renate Handley [facility] Note Date/Time January 06, 2025 3:29 pm [facility] [address] [place] [address], [address] [place] [address] OFFICE VISIT Date of Service: 01/06/25 MR#: [id number] Acct: [id number] Name: QUAN RODGERS KELTON Rep #: [id number] : 2000 Provider: Dr. Dameon Handley MD Age/Sex: 24/F Location: [facility] Status: Signed Intake Vital Signs 10/21/24 08:39 11/21/24 10:42 12/25/24 09:54 01/06/25 14:59 Height 5 ft 11 in 5 ft 11 in 5 ft 10 in 5 ft 10 in Weight: 260 lb 8 oz BMI 37.3 BP 108/73 Intake Visit Reasons: 28wk ob/glucose Senior Analyst Developer Required: No Is patient in pain?: No [...] times per week duration: < 15 minutes/day aly/caodaism: None seatbelt use: always do you feel [...] - full term 8lbs 14oz Male epidural [facility] Billy Max Delivery Date: 11/06/21 Last Updated by: [...] Cosigner Signature: Date (if applicable) CC: ~ [facility] Work Phone: 1(191) 943-713007-02-2025 Radiology Diagnostic study note [facility] Imaging Services [address] [place], [place] [address] Transvaginal w/Preg US MR#: [id number] Acct: [id number] Name: QUAN RODGERS KELTON Rep #: [id number] : 2000 F 24 From: Kevin Kidd MD PCP: Care Physician,No Primary Status: REG CLI Study:Transvaginal w/Preg US Date of Exam: 12/25/24 Exam# [id number] Ordering Dr: Raven Sandoval DO PROCEDURE: TRANSVAGINAL [...] minute. Left ovary not evaluated Reading Location: [id number] CC: Dr. Raven Modi DO; No Primary Care Physician ~ Label Remover: Signed [facility]07-02-2025 Radiology Diagnostic study note [facility] Imaging Services [address] [place], [place] [id number] Kidney and Bladder MR#: [id number] Acct: [id number] Name: QUAN RODGERS KELTON Rep #: [id number] : 2000 F 24 From: Kevin Kidd MD PCP: Care Physician,No Primary Status: REG CLI Study:Kidney and Bladder Date of Exam: 0 12/25/24 Exam# [id number] Ordering Dr: Raven Sandoval DO PROCEDURE: KIDNEY [...] or suspicious solid renal lesion. Reading Location: [id number] CC: Dr. Raven Modi, DO; No Primary Care Physician ~ Label Remover: Signed [facility]06-27-2025 Progress [facility] [address], [address] [place] [address] OFFICE VISIT Date of Service: 12/20/24 MR#: [id number] Acct: [id number] Name: QUAN RODGERS KELTON Rep #: [id number] : 2000 Provider: KEO Eli Age/Sex: 24/F Location: [facility] Status: Signed Intake Vital Signs 09/26/24 13:48 11/21/24 10:42 12/20/24 08:29 Height 5 ft 11 in 5 ft 11 in 5 ft 11 in Weight: 262 lb BMI 36.5 BP 114/78 Intake Visit Reasons: 25wk ob Chief Complaint: 25wk OB Senior Analyst Developer Required: No Is patient in pain?: No [...] occupational status: employed 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[employer] current occupational exposures/hazards: No pets and animals: [...] times per week duration: < 15 minutes/day aly/caodaism: None seatbelt use: always do you feel [...] term 8lbs 14oz Male epidural [facility] Renate Billy Max Delivery Date: 11/06/21 Last Updated by: [...] Cosigner Signature: Date (if applicable) CC: ~ [facility]05-29-2025 Evaluation note* Diagnosis Onset Date [...] 032024 1:33pm Supervision of high-risk acute March 03 025 1:33pm [facility] Work Phone: 1([phone]) 451-139705-29-2025 Evaluation note* Diagnosis Onset Date Resolution Status [...] of high-risk acute March 10, 2025 12:43pm [facility] Work Phone: [phone] 354-390105-29-2025 Progress [facility] [address], [address] [place] [address] OFFICE VISIT Date of Service: 11/21/24 MR#: [id number] Acct: [id number] Name: QUAN RODGERS Rep #: [id number] : 2000 Provider: Dr. 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/hazards: No pets and animals: [...] times per week duration: < 15 minutes/day aly/caodaism: None seatbelt use: always do you feel [...] jake SANTOS> Date _ Renate Handley MD [facility] Signature: Date (if applicable) CC: ~ [facility] [id number] Radiology Diagnostic study note [facility] Imaging Services [address] [place], [place] [address] OB Anatomy w/ Transvaginal MR#: [id number] Acct: [id number] Name: QUAN RODGERS KELTON Rep #: [id number] : 2000 F 24 From: Fercho Diallo MD PCP: Care Physician,No Primary Status: REG CLI Study:OB Anatomy w/ Transvaginal Date of Exam : 11/12/24 Exam# [id number] Ordering Dr: Geneva Wheeler PRESIDENT ERGONOMIC CONSULTING PRESIDENT ERGONOMIC CONSULTING-C PROCEDURE: OB ANATOMY W/ TRANSVAGINAL 11/12/2024 REASON [...] of 19 weeks and 4days. Reading Location: [place] [address] CC: DANIEL Wheeler; No Primary Care Physician ~ Label Remover: Signed [facility]04-28-2025 Evaluation note* Diagnosis Onset Date Resolution [...] Supervision of high-risk acute February 03 10:38am [facility] Work Phone: 1([phone]) 429-826704-28-2025 Evaluation note* Diagnosis Onset Date Resolution Status [...] Supervision of high-risk acute February 18 2:41pm [facility] Work Phone: [phone] Evaluation note* Diagnosis Onset Date Resolution Status [...] of high-risk acute January 06, 2025 2:40pm [facility] Work Phone: [phone] 116-161604-03-2025 Evaluation note* Diagnosis Onset Date Resolution Status [...] of high-risk acute January 23, 2025 10:31am [facility] Work Phone: [phone]) [phone] Evaluation note* Diagnosis Onset Date Resolution Status [...] high-risk acute December 25, 2024 9 :30am [facility] Work Phone: 1(860) 982-365803-07-2025 Discharge summary [facility] Medical Records Department [address] [place] [address] Emergency Department Summary 08/30/24 MR#: [id number] Acct: [id number] Name: QUAN RODGERS KELTON Rep #:[id number] [...] had a checkup in the office and linux devops engineer didan ultrasound and told her she had an IUP. G2, . She states she was having some trouble urinating tonight 2,when she felt like she needed to go she only dribbled a little. She denies any hematuria. No dysuria. No pain in her flank or back. No nausea or vomiting. No fevers or chills. Normal bowel movements. 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 Reading Location: [facility] Discharge Plan Triage Chief Complaint: Abd Pain [...] mg, about every 6 hours. Print Language: Estonian Disposition Disposition: Home, Self Care What to do if you have Problems For any increased pain, shortness of breath, bleeding, nausea or vomiting, chestpain, or any unexpected problems, contact your Primary Care Provider. Call [facility] ([phone]) or report tothe closest Emergency Room. Call 911 if necessary. 08/30/24 0222 Cosigner Signature (if applicable): CC: Dr. Renate Handley MD; No Primary Care Physician ~ Signed [facility]03-07-2025 Radiology Diagnostic study note [facility] Imaging Services [address] [place] [address] Transvaginal w/Preg US MR#: [id number] Acct: [id number] Name: QUAN RODGERS Rep #: [id number] : 2000 F 24 From: Zia Lynn MD PCP: Care Physician,No Primary Status: REG ER Study:Transvaginal w/Preg US Date of Exam: 08/30/24 Exam# [id number] Ordering Dr: Geovanni Villafuerte MD PROCEDURE: TRANSVAGINAL [...] tones 177 beats per minute.. Reading Location: [id number] CC: Dr. Christiano Villafuerte MD; No Primary Care Physician ~ Label Remover: Signed [facility]03-06-2025 Evaluation note* Diagnosis Onset Date Resolution Status Admit Date Family history of autism acute August 29, 2024 11:05am History of delivery , currently acute August 29 11:05am Obesity affecting acute August 29, 2024 11:05am acute August 29 11:05am Supervision of high-risk acute August 29, 2024 11:05am [facility] Work Phone: 1(763) 459-660903-06-2025 Evaluation note* Diagnosis Onset Date Resolution Status [...] trimester, antepartum inactive September 04, 2024 10:51am [facility] Work Phone: 1([phone]) 738-795603-06-2025 Evaluation note* Diagnosis Onset Date Resolution Status [...] of high-risk acute September 26, 2024 1:43pm [facility] Work Phone: 1([phone]) 672-495803-06-2025 Evaluation note* Diagnosis Onset Date Resolution Status [...] of high-risk acute October 21, 2024 8:36am [facility] Work Phone: 1(757) 609-220903-06-2025 Evaluation note* Diagnosis Onset Date Resolution Status [...] high-risk acute November 21, 2024 1 0:26am [facility] Work Phone: [phone] Evaluation note* Diagnosis Onset Date Resolution Status [...] of high-risk acute December 20, 2024 8:28am [facility] Work Phone: [phone]) 772-151003-06-2025 Evaluation note* Diagnosis Onset Date Resolution Status [...] high-risk acute December 25, 2024 8 :55am [facility] Work Phone: [phone] Evaluation note* Diagnosis Onset Date Resolution Status [...] high-risk acute December 25, 2024 8 :55am [facility] Work Phone: 1([phone]) 112-396603-06-2025 NotePap Smear Specimen [facility]quacyOhio [facility] 2024 12:48pmComment.Satisfactory for evaluation. Endocervical and/or squamous metaplasticcells (endocervical component)are present.[facility] INTERFACED A#[id number] St. Mary HospitalComment on above:Satisfactory for evaluation. Endocervical and/or squamous metaplasticcells (endocervical component)are present.08-29-2024 NotePap Smear Specimen AdequacyMarch 2024 12:48pmComment.Satisfactory for evaluation. Endocervical and/or squamous metaplasticcells (endocervical component)are present.[facility] INTERFACED A#[id number] St. Mary HospitalComment on above:Satisfactory for evaluation. Endocervical and/or squamous metaplasticcells (endocervical component)are present.Discharge summary Author Christiano Villafuerte [facility] Note Date/Time August 30, 2024 2:22 am [facility] Medical Records Department [address] [place] [address] Emergency Department Summary 08/30/24 MR#: [id number] Acct: [id number] Name: QUAN RODGERS KELTON Rep #:[id number] [...] had a checkup in the office and linux devops engineer did an ultrasound and told her she had an IUP. G2, . She states she was having some trouble urinating tonight 2,when she felt like she needed to go she only dribbled a little. She denies any hematuria. No dysuria. No pain in her flank or back. No nausea or vomiting. No fevers or chills. Normal bowel movements. 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 Reading Location: [facility] Discharge Plan Triage Chief Complaint: Abd Pain [...] mg, about every 6 hours. Print Language: Estonian Disposition Disposition: Home, Self Care What to do if you have Problems For any increased pain, shortness of breath, bleeding, nausea or vomiting, chestpain, or any unexpected problems, contact your Primary Care Provider. Call [facility] ([phone]) or report to the closest Emergency Room. Call 911 if necessary. 08/30/24221 <Electronically signed by Christiano Villafuerte MD> Cosigner Signature (if applicable): CC: Dr. Renate Handley MD; No Primary Care Physician ~ Signed [facility] Work Phone: Evaluation note* Diagnosis Onset [...] Supervision of normal acute UTI in acute [facility] Work Phone: Evaluation note* Diagnosis Onset [...] Supervision of normal resolved UTI in resolved [facility] Work Phone: Evaluation note* Diagnosis Onset Date Resolution Status delivery delivered acute care and examination noneactive [facility] Work Phone: Evaluation noteNo assessment information available [facility] Work Phone: Hospital Discharge instructions Additional Instructions Keep your scheduled appointment with Dr. Renate Handley tomorrow after picking up your Depo-Provera.[facility] Work Phone: Hospital Discharge instructions Additional [...] strength Tylenol, 1000 mg, about every [address] Work Phone: Hospital Discharge instructionsAdditional Instructions may use heating pad, Tylenol and warm bathsWSelect [facility] Work Phone: Hospital Discharge instructionsAdditional Instructions keep next appointmentWSelect Medical [facility] Work Phone: Progress note Author Renate Handley [facility] Note Date/Time November 21, 2024 11:13 am [facility] [address], [address] [place] [address] OFFICE VISIT Date of Service: 11/21/24 MR#: [id number] Acct: [id number] Name: QUAN RODGERS KELTON Rep #: [id number] : 2000 Provider: Dr. 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 @ [employer] current occupational exposures/hazards: No pets and animals: [...] times per week duration: < 15 minutes/day aly/caodaism: None seatbelt use: always do you feel [...] - full term 8lbs 14oz Male epidural [facility] Renate Handley Max Delivery Date: 11/06/21 Last [...] Cosigner Signature: Date (if applicable) CC: ~ [facility] Work Phone: Progress note Author Dariana Eli [facility] Note Date/Time December 20, 2024 8:51 am [facility] [address], [address] [place] [address] OFFICE VISIT Date of Service: 12/20/24 MR#: [id number] Acct: [id number] Name: QUAN RODGERS Rep #: [id number] : 2000 Provider: KEO Eli Age/Sex: 24/F Location: [facility] Status: Signed Intake Vital Signs 09/26/24 13:48 11/21/24 10:42 12/20/24 08:29 Height 5 ft 11 in 5 ft 11 in 5 ft 11 in Weight: 262 lb BMI 36.5 BP 114/78 Intake Visit Reasons: 25wk ob Chief Complaint: 25wk OB Senior Analyst Developer Required: No Is patient in pain?: No [...] 1 current occupational status: employed 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 N refugio diaz helpful 11/21/24 -?-?-?-?-?-?-?-?-?-?-?-?- 21w 3d 259 lb [...] this visit. GA appropriate handout given. 12/20/24 0817 <Electronically signed by Dariana valentine CNM> Date _ Dariana Eli CNM Cosigner Signature: Date (if applicable) CC: ~ [facility] Work Phone: Progress note Author Renate Handley [facility] Services Note Date/Time January 23, 2025 11:1 8am [facility] [address], [address] [place] [address] OFFICE VISIT Date of Service: 01/23/25 MR#: [id number] Acct: [id number] Name: QUAN RODGERS KELTON Rep #: [id number] : 2000 Provider: Dr. 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 [facility] low risk- female. unremarkable anatomy, consistent dates Orders: Orders POC Urinalysis 2 Dip (Clinic) Today 01/23/25 1118 <Electronically signed by Renate joseph MD> Date _ Renate Handley MD Cosigner Signature: Date (if applicable) CC: ~ [facility] Work Phone: Progress note Author Renate Handley [facility] Note Date/Time 2025 11 :07am [facility] [address] [place] [address], [address] [place] [address] OFFICE VISIT Date of Service: 02/03/25 MR#: [id number] Acct: [id number] Name: QUAN RODGERS Rep #: [id number] : 2000 Provider: Dr. 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[employer] current occupational exposures/hazards: No pets and animals: [...] times per week duration: < 15 minutes/day aly/caodaism: None seatbelt use: always do you feel [...] - full term 8lbs 14oz Male epidural [facility] Renate Farfan Delivery Date: 11/06/21 Last Updated [...] Cosigner Signature: Date (if applicable) CC: ~ [facility] Work Phone: Progress note Author Renate Handley [facility] Note Date/Time March 10, 2025 1:44pm [facility] [address] [place] [address], [address] [place] [address] OFFICE VISIT Date of Service: 03/10/25 MR#: [id number] Acct: [id number] Name: QUAN RODGERS KELTON Rep #: [id number] : 2000 Provider: Dr. 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 [facility] low risk- female. unremarkable anatomy, consistent dates Orders: Orders POC Urinalysis 2 Dip (Clinic) Today OB NST Today O99.212 - Obesity complicating , second trimester 03/10/25 1344 <Electronically signed by Renate joseph MD> Date _ Renate Handley MD Cosign Signature: Date (if applicable) CC: ~ [facility] Work Phone: Reason for referral (narrative)No reason for referral information available[facility] Work Phone: Summary Purpose Family History No Family History Records FoundNo Family History Records FoundNo Family History Records FoundNo Family History Records Found Advance Directives No Advanced Directives Records Found Advance Directive Response Recorded Date/ Time Living Will No November 04, 2021 8 :31pm Power of Stripper Preliminary No November 04, 2021 8:31pm Advance Directive Response Recorded Date/ Time Living Will No April 14 4:25pm Power of Stripper Preliminary No April 14, 2022 4:25pm Advance Directive Response Recorded Date/ Time Living Will No August 15 024 5:50pm Power of Stripper Preliminary No August 15, 2023 5:50pm Advance Directive Response Recorded Date/ Time Living Will No August 30, 2024 12:39am Power of Stripper Preliminary No August 30 12:39am Living Will No June 16 8:48pm Power of Stripper Preliminary No June 16, 2024 8:48pm Advance Directive Response Recorded Date/ Time Living Will No August 30, 2024 1:39am Power of Stripper Preliminary No August 30 1:39am Living Will No June 16 9:48pm Power of Stripper Preliminary No June 16, 2024 9:48pm Advance Directive Response Recorded Date/ Time Living Will No August 30, 2024 1:39am Do you have a Healthcare Power of Stripper Preliminary? No August 30, 2024 1:39am Living Will No June 16 9:48pm Do you have a Healthcare Power of Stripper Preliminary? No June 16, 2024 9:48pm Advance Directive Response Recorded Date/ Time Living Will No August 30, 2024 1:39am Do you have a Healthcare Power of Stripper Preliminary? No August 30, 2024 1:39am Do you have a Healthcare Power of Stripper Preliminary? No October 25, 2024 7:30pm Advance Directive Response Recorded Date/ Time Do you have a Healthcare Power of Stripper Preliminary? No October 25, 2024 7:30pm Chief Complaint [...] currently January 06, 2025 2:40pm Obesity affecting Leanna 14th, 2 025 2:40pm Pelvic pain affecting December [...] :38am Supervision of high-risk Augus 2024 10:38am Chief Complaint Admit Date 17 [...] 2025 11 :24am Chief Complaint Admit Date wk ob October [...] 23, 2025 10:31am Obesity affecting January 23 025 10:31am Pelvic pain affecting December 10:31am [...] March 03, 2025 1:33pm Supervision of high-risk Tiffaniee thanh 2024 1:33pm Chief Complaint Admit Date Supervision [...] Obesity affecting February 1:33pm Pelvic pain affecting 2024 1:33pm March 03, 2025 1:33pm Sterilization March 03, 2025 1:33pm Supervision of high-risk Nickie giordanojennifer 2024 1:33pm Family history of autism March 10, 2025 12:43pm History of delivery, currently March 10, 2025 12:43pm Obesity affecting March 102024 12:43pm Pelvic pain affecting Asael r 2024 12:43pm March 10, 2025 12:43pm Sterilization March 10, 2025 12:43pm Supervision of high-risk Nickie law 2024 12:43pm Additional Source Comments INFORMATION SOURCE (unrecogn ized section and content) DATE CREATED AUTHOR 01/14/2020 [facility] DATE CREATED AUTHOR AUTHOR'S ORGANIZ ATION 12/22/2020 [facility] ([place]) DATE CREATED AUTHOR AUTHOR'S ORGANIZ ATION 04/10/2021 [facility] DATE CREATED AUTHOR AUTHOR'S ORGANIZ ATION 03/15/2025 [facility] Goals (unrecognized section and content) Goals [...] 2024 End: October 21, 2024 Geneva Wheeler PRESIDENT [employer]SULTING, PRESIDENT [employer]ON[employer] CONSULTING-C Attending Provider Active Start: October 21, 2024 [...] 2024 End: November 12, 2024 Geneva Wheeler PRESIDENT [employer]SULTING, PRESIDENT [employer]ON[employer]SULTING-C Attending Provider Active Start: November 12, 2024 End: November 12, 2024 Geneva Wheeler PRESIDENT [employer] CONSULTING, PRESIDENT [employer]GON[employer]SULTING-C Referring Provider Active Start: November 12, 2024 [...] 2024 End: October 21, 2024 Geneva Wheeler PRESIDENT [employer] CONSULTING, PRESIDENT ERGONOMIC CONSULTING-C Attending Provider Active Start: October 21, 2024 [...] 2024 End: November 12, 2024 Geneva Wheeler PRESIDENT [employer] CONSULTING, PRESIDENT ERGON[employer]IC CONSULTING-C Attending Provider Active Start: November 12, 2024 End: November 12, 2024 Geneva Wheeler PRESIDENT [employer] CONSULTING, PRESIDENT ERGON[employer]IC CONSULTING-C Referring Provider Active Start: November 12, 2024 [...] End: October 21, 2024 Geneva Wheeler NP, [employer]IDENT [employer]-C Attending Provider Active Start: October 21, 2024 [...] 12, 2024 End: November 12, 2024 Geneva Franklin PRESIDENT [employer]ON[employer] CONSULTING, PRESIDENT ERGON[employer]IC CONSULTING-C Attending Provider Active Start: November 12, 2024 End: November 12, 2024 Geneva Wheeler PRESIDENT [employer] CONSULTING, PRESIDENT ERG[employer]IC CONSULTING-C Referring Provider Active Start: November 12, 2024 [...] End: October 21, 2024 Geneva Wheeler NP, [employer]IDENT [employer]-C Attending Provider Active Start: October 21, 2024 End: October 21, 2024 Team Status: Inactive Member Role/Relationship Status Dates No Primary Care Physician Primary Care Provider Active Start: October 25, 2024 End: October 25, 2024 Dr. Heraclio Ornelas , DO Attending Provider Active Start: October 25, 2024 End: October 25, 2024 Dr. Heraclio Ornelas , DO Emergency Provider Active Start: October 25, 2024 End: October 25, 2024 Team Status: Inactive Member Role/Relationship Status Dates No Primary Care Physician Primary Care Provider Active Start: November 12, 2024 End: November 12, 2024 Geneva Wheeler PRESIDENT [employer] CONSULTING, PRESIDENT [employer]IC CONSULTING-C Attending Provider Active Start: November 12, 2024 End: November 12, 2024 Geneva Wheeler PRESIDENT [employer]GONOMIC CONSULTING, PRESIDENT ERGONOMIC CONSULTING-C Referring Provider Active Start: November 12, 2024 [...] Active Start: January 06, 2025 Geneva Wheeler PRESIDENT ERGONOMIC CONSULTING, PRESIDENT ERGONOMIC CONSULTING-C Attending Provider Active Start: January 06, 2025 Team Status: Inactive Member Role/Relationship Status Dates No Primary Care Physician Primary Care Provider Active Start: January 06, 2025 End: January 06, 2025 Geneva Wheeler PRESIDENT [employer]GON[employer]IC CONSULTING, PRESIDENT ERGONOMIC CONSULTING-C Attending Provider Active Start: January 06, 2025 [...] 2024 End: October 21, 2024 Geneva Wheeler PRESIDENT ERGONOMIC CONSULTING, PRESIDENT ERGONOMIC CONSULTING-C Attending Provider Active Start: October 21, 2024 [...] 2024 End: November 12, 2024 Geneva Wheeler PRESIDENT ERGONOMIC CONSULTING, PRESIDENT ERGONOMIC CONSULTING-C Attending Provider Active Start: November 12, 2024 End: November 12, 2024 Geneva Wheeler PRESIDENT ERGONOMIC CONSULTING, PRESIDENT ERGONOMIC CONSULTING-C Referring Provider Active Start: November 12, 2024 [...] 2024 End: December 25, 2024 Dr. Raven Vande Velde [...] December 25, 2024 Dr. Raven Moid , DO Referring Provider Activ e Start: [...] End: January 06, 2025 Geneva Wheeler NP, PRESIDENT [employer]ING-C Attending Provider Active Start: January 06, 2025 [...] 2024 End: November 12, 2024 Geneva Wheeler PRESIDENT [employer]GON[employer]IC CONSULTING, PRESIDENT ERGONOMIC CONSULTING-C Attending Provider Active Start: November 12, 2024 End: November 12, 2024 Geneva Wheeler PRESIDENT ERGONOMIC CONSULTING, PRESIDENT ERGONOMIC CONSULTING-C Referring Provider Active Start: November 12, 2024 [...] End: January 06, 2025 Geneva Wheeler NP, PRESIDENT ERGON[employer]IC CONSULTING-C Attending Provider Active Start: January 06, 2025 [...] 2025 End: February 13, 2025 Dr. Renate Handlye MD Attending Provider Active Start: February 13, 2025 End: February 13, 2025 Dr. Renaet Handley MD Referring Provider Active Start: February [...] BE BASED ON THE PRIMARY CLINICAL RECORDS. [employer] provides no warranty or guarantee of the accuracy or completeness of information in this document.
[2025-03-16] MEDS: Lactated Ringers 1,000 ML 999 ML IV (18:25)
[2025-03-16] MEDS: Famotidine 200 MG/20 ML MDV 20 MG in 0.9% Normal Saline (Pres. free 8 ML 300 MG IV (18:35)
[2025-03-16 18:36] LABS: Hematocrit 33.3 % (37-47); Hemoglobin 11.9 g/dL (12.0-15.0); Mean Corp Hgb Conc 35.7 g/dL (32-36); Mean Corpuscular Volume 89.5 fL (81-99); Mean Platelet Vol. 11.9 fl (6.2-12.0); Platelet Count 180 K/mm3 (150-450); RBC Distribution Width CV 12.4 % (11.6-14.6); RBC Distribution Width SD 40.6 fl (35.1-43.9); Red Blood Count 3.72 M/mm3 (4.2-5.4); White Blood Count 9.6 K/mm3 (4.4-11.0)
[2025-03-16 19:33] LABS: AST(SGOT) 16 U/L (<=31); Alanine Aminotransfer ALT/SGPT 13 U/L (<=34); Estimated Creatinine Clearance 230.43 ml/min (50-250); Uric Acid 4.2 mg/dL (2.6-6.0)
[2025-03-16 20:10] LABS: Creatinine, Urine (random) 182.00 mg/dL (28.00-217.00); Protein, Urine (Random) 17.7 mg/dL (0.0-12.0); Protein:Creat Ratio 97 mg/g CRE (0-200)
--- NOTE | 2025-03-16 23:14 | OB.TRI.PN_ITS ---
Progress Notes Date of Service: 03/16/25 Progress Note: Patient presents for triage evaluation secondary to headache and acid reflux. has viral illness FHT: 120 Moderate variability reactive no decelerations category I tracing Godfrey: rare Contractions Assessment and plan: pre e labs normal, BP reassuring, pepcid for acid reflux- resolved with pepcid, Reactive NST, reassuring maternal and status patient discharged to home to follow-up in office. See problem list details for additional plan information. Laboratory Studies: Laboratory Tests 03/16/25 03/16/25 Range/Units 19:15 18:25 WBC 9.6 (4.4-11.0) K/mm3 RBC 3.72 L (4.2-5.4) M/mm3 Hgb 11.9 L (12.0-15.0) g/dL Hct 33.3 L (37-47) % MCV 89.5 (81-99) fL MCH 32.0 (27.0-32.0) pg MCHC 35.7 (32-36) g/dL RDW Std Deviation 40.6 (35.1-43.9) fl RDW Coeff of Jil 12.4 (11.6-14.6) % Plt Count 180 (150-450) K/mm3 MPV 11.9 (6.2-12.0) fl Creatinine 0.54 L (0.70-1.20) mg/dL Estim Creat Clear Calc 230.43 (50-250) ml/min Est GFR (MDRD) Non-Af 133 (>60) Uric Acid 4.2 (2.6-6.0) mg/dL AST 16 (<=31) U/L ALT 13 (<=34) U/L U Random Total Protein 17.7 H (0.0-12.0) mg/dL Urine Creatinine 182.00 (28.00-217.00) mg/dL Protein/Creatinin Ratio 97 (0-200) mg/g CRE Charges/Coding Multi Select Codes Urinary/Genital Urinary/Genital CPT Codes: 30826-10 non-stress test Interp Assessment & Plan (1) Sterilization: COMMENT: title 19 signed 01/06 (2) Pelvic pain affecting : (3) Family history of autism: COMMENT: FOB sister (4) History of delivery, currently : COMMENT: x1, Desires rpt csec with SM, c/s 03/24. (5) Obesity affecting : QUALIFIERS: Trimester: second trimester Obesity type affecting : unspecified obesity Qualified Code(s): O99.212 - Obesity complicating , second trimester COMMENT: BMI: 35.6; HgBA1C ordered w/NOB (6) Supervision of high-risk : QUALIFIERS: Trimester: second trimester Qualified Code(s): O09.92 - Supervision of high risk , unspecified, second trimester COMMENT: PRR, , LINDA 03/31/25 Girl, Rao PC: Babak, : Adolph (7) : QUALIFIERS: Weeks of gestation: 37 weeks Qualified Code(s): Z3A.37 - 37 weeks gestation of COMMENT: Discussed genetic/carrier testing - prior carrier done. [facility] low risk-female. unremarkable anatomy, consistent dates (8) Headache: (9) Acid reflux: COMMENT: alon
== END 2025-03-16 20:30 | disposition home or self-care (01) ==
LOC: WPOUT 18:04 → WP 18:04
PROVIDERS: Referring Provider Advanced Practice Midwife; Visit Provider Advanced Practice Midwife
DX: O99.891 Other specified diseases and conditions complicating pregnancy (principal); O99.613 Diseases of the digestive system complicating pregnancy, third trimester; O99.213 Obesity complicating pregnancy, third trimester; R10.2 Pelvic and perineal pain; R51.9 Headache, unspecified; K21.9 Gastro-esophageal reflux disease without esophagitis; Z3A.37 37 weeks gestation of pregnancy
CPT/HCPCS: 96365; 36415; 59025; 59050; 82565; 82570; 84156; 84450; 84460; 84550; 85027; 99221; G0378

== ENCOUNTER 2025-03-24 04:59 | Inpatient (IN) | payer MEDICAID, SELFPAY ==
[2025-03-24] VITALS (18 sets, daily range): BP systolic 119–139; BP diastolic 76–105; PULSE 60–96; RESP 13–18; TEMP 36.2–36.8; O2SAT 91–99; BMI 39.5
[2025-03-24 05:43] LABS: Hematocrit 33.3 % (37-47); Hemoglobin 12.0 g/dL (12.0-15.0); Immature Granulocytes Count 0.040 X10^3/uL (0.0-0.0); Mean Corp Hgb Conc 36.0 g/dL (32-36); Mean Corpuscular Volume 89.0 fL (81-99); Mean Platelet Vol. 12.3 fl (6.2-12.0); NRBC Flagged by Analyzer 0 % (0-5); Platelet Count 197 K/mm3 (150-450); RBC Distribution Width CV 12.5 % (11.6-14.6); RBC Distribution Width SD 40.5 fl (35.1-43.9); Red Blood Count 3.74 M/mm3 (4.2-5.4); White Blood Count 9.6 K/mm3 (4.4-11.0)
[2025-03-24 06:19] LABS: Syphilis Antibodies Nonreactive (Nonreactive)
--- NOTE | 2025-03-24 08:46 | HP.PCM_ITS ---
History and Physical Date of Admission: 03/24/25 Intake Vital Signs 01/06/2514:59 02/03/2510:41 03/16/2518:24 03/17/2512:58 Height 5 ft 10 in 5 ft 10 in 5 ft 10 in 5 ft 10 in Weight: 272 lb 7 oz BMI 39.0 BP 112/77 Intake Visit Reasons: 38 wk ob/nst *SM Csection Quantitative Analyst Developer Required: No Is patient in pain?: No Allergies No Known Allergies Allergy (Verified 03/17/25 12:58) Medications ?Medication ?Instructions ?Recorded ?Confirmed ?Type NK 03/17/25 03/17/25 History famotidine 20 mg tablet (Pepcid) 20 mg PO BID #60 tabs 03/17/25 03/17/25 Rx metoclopramide HCl 10 mg tablet 10 mg PO TID nausea #90 tabs 03/17/25 Rx (Reglan) Last Menstrual Period: 06/24/24 Zika: Zika virus screening: Negative : No PFSH PFSH Medical History Chorioamnionitis delivery delivered Surgical History History of section History of surgery Social History adopted: No household members: children and other details: mom housing: house number of children: 1 current occupational status: employed current occupation: [employer]TER[employer] @ [employer] current occupational exposures/hazards: No pets and animals: No history of recent travel: No sexually active: Yes Smoking Status: Former smoker second hand exposure: No alcohol intake: never substance use type: does not use well-balanced diet: daily or most days caffeine: Yes Type: carbonated beverages eating out: rarely or never during the past year weight has: remained stable what type of physical activity do you participate in: walking frequency: 1-2 times per week duration: < 15 minutes/day aly/baptism: None seatbelt use: always do you feel safe at home: Yes additional social history: : Max History 2 Elective abortions Hx Para 1 Spontaneous abortions Hx # Term Pregnancies 1 Ectopic pregnancies Hx # Pregnancies Multiple births # of living children 1 Past Pregnancies Del. Date Name GA/Weeks Outcome Route Bth Weight Infant Gen Labor Lgth Anesthesia Del Locatn Provider FOB 11/06/21 Babak 39 live - full term 8lbs 14oz Male epidural [facility] Renate Farfan Delivery Date: 11/06/21 Last Updated by: Adri Kimble, RN LTCS SM AOD 6 cm boy Babak IOL 41 HPI 38 wk ob/nst *SM Csection Details: QUAN RODGERS is a 25 year old who presents for routine OB visit. OB Visit LINDA Calculator Estimated Delivery Date Method Current WG Current Estimate 03/31/25 LMP (Certain) 38w 0d Other Estimates 03/30/25 Ultrasound #1 38w 1d Expected Delivery Route/Plan Repeat C/S with SM Specific Issue/Plans Covid status: [] Flu vaccine: [] Tdap vaccine: [] Rhogam: [] LARC form signed: [] Problem list reviewed and updated with the most current plan of care details and appropriate orders placed. Relevant counseling for the gestational age provided. Continue routine care and follow up unless otherwise noted in visit notes/problem list details Initial Weight: 259 lb Date -?-?-?-?-?-?-?-?-?-?-?-?- EGA Weight BP Urine Prot -?-?-?-?-?-?-?-?-?-?-?-?- Glucose FHR FuHt Pres Dilation -?-?-?-?-?-?-?-?-?-?-?-?- Effaced St Visit Note 08/29/24-?-?-?-?-?-?-?-?-?-?-?-?- 9w 3d 259 lb 6 oz(+6 oz) 121/78 -?-?-?-?-?-?-?-?-?-?-?-?- 168 -?-?-?-?-?-?-?-?-?-?-?-?- KW- CRL cons with dates. Declines NIPT. requesting 39 week RC/S 09/04/24-?-?-?-?-?-?-?-?-?-?-?-?- 10w 2d 255 lb 4 oz(-3 lb 12 oz) 113/73 Negative -?-?-?-?-?-?-?-?-?-?-?-?- Negative 158 -?-?-?-?-?-?-?-?-?-?-?-?- JV- follow up ER visit today. She possibly passed a kidney stone and feeling better until she had to lift someone heavy at work. FHT seen today on bedside scan. wants NIPT now. plans to return to do this. work restriction letter given. if pain returns will order a KUB 09/26/24-?-?-?-?-?-?-?-?-?-?-?-?- 13w 3d 258 lb(-16 oz) 123/73 Negative -?-?-?-?-?-?-?-?-?-?--?-?- Negative 155 -?-?-?-?-?-?-?-?-?-?-?-?- JV- no complaints. is going to medicaid office today and will let us know if approved. if approved will order mfm ultrasound and NIPT with new ob labs. 10/21/24-?-?-?-?-?-?-?-?-?-?-?-?- 17w 0d 258 lb 2 oz(-14 oz) 115/71 -?-?-?-?-?-?-?-?-?-?-?-?- 148 -?-?-?-?-?-?-?-?-?-?-?-?- MH-No VB. ?flutters. Reviewed nl PN labs. Girl Unable to void this appt. Nausea persists, zofran helpful 11/21/24-?-?-?-?-?-?-?-?-?-?-?-?- 21w 3d 259 lb(+0 oz) 113/68 Negative -?-?-?-?-?-?-?-?-?-?-?-?- Negative 150 20 -?-?-?-?-?-?-?-?-?-?-?-?- SM- SM- no vb cramping some intermittent left side pain suspect round ligament, UA and Culture 12/20/24-?-?-?-?-?-?-?-?-?-?-?-?- 25w 4d 262 lb(+3 lb) 114/78 -?-?-?-?-?-?-?-?-?-?-?-?- 157 25 -?-?-?-?-?-?-?-?-?-?-?-?- LC- no vb/cramping. good fm. no concerns today. 28 week labs ordered. 12/25/24-?-?-?-?-?-?-?-?-?-?-?-?- 26w 2d 259 lb 4 oz(+4 oz) 117/77 1+ -?-?-?-?-? -?-?-?-?-?-?-?- Negative 146 0-?-?-?-?-?-?-?-?-?-?-?-?- JV- patient is being seen urgently today for pelvic pain. She woke up with alberto n that was moderate to severe JV- patient is being seen urgently today for pelvic pain. She woke up with pain that was moderate to severe. Her anatomy scan showed a cl of 4.4 cm. placenta posterior and not low lying. UA showed + 1 protein, no blood or ketones. Sending to to L&D for tocometer and possible CT or KUB to rule out kidney stone. 01/06/25-?-?-?-?-?-?-?-?-?-?-?-?- 28w 0d 260 lb 8 oz(+1 lb 8 oz) 108/73 -?-?-?-?-?-?-?-?-?-?-?-?- 145 28 -?-?-?-?-?-?-?-?-?-?-?-?- SM- no vb lof good fm no reuglar ctx desires steriliation 01/23/25-?-?-?-?-?-?-?-?-?-?-?-?- 30w 3d 264 lb 4 oz(+5 lb 4 oz) 112/73 -?-?-?-?-?-?-?-?-?-?-?-?- 140 31 -?-?-?-?-?-?-?-?-?-?-?-?- SM- no vb lof good fm no reuglar ctx 02/03/25-?-?-?-?-?-?-?-?-?-?-?-?- 32w 0d 264 lb 8 oz(+5 lb 8 oz) 118/81 Negative -?-?-?-?-?-?-?-?-?-?-?-?- Negative 140 32 -?-?-?-?-?-?-?-?-?-?-?-?- SM- no vb lof good fm n oruglar ctx co back alberto ntrouble sleeping some headaches 02/18/25-?-?-?-?-?-?-?-?-?-?-?-?- 34w 1d 270 lb 1 oz(+11 lb 1 oz) 106/59 -?-?-?-?-?-?-?-?-?-?-?-?- 140 34 -?-?-?-?-?-?-?-?-?-?-?-?- SM- no vb lof good fm no regular ctx 03/03/25-?-?-?-?-?-?-?-?-?-?-?-?- 36w 0d 267 lb 1 oz(+8 lb 1 oz) 123/72 -?-?-?-?-?-?-?-?-?-?-?-?- 140 -?-?-?-?-?-?-?-?-?-?-?-?- SM- no vb lof good fm no regular ctx, non reactive nst to l and d for bpp and monitoring 03/10/25-?-?-?-?-?-?-?-?-?-?-?-?- 37w 0d 270 lb 6 oz(+11 lb 6 oz) 129/80 -?-?-?-?-?-?-?-?-?-?-?-?- 140 -?-?-?-?-?-?-?-?-?-?-?-?- SM- no vb lof good fm n oregular ctx has uti 03/17/25-?-?-?-?-?-?-?-?-?-?-?-?- 38w 0d 272 lb 7 oz(+13 lb 7 oz) 112/77 Negative -?-?-?-?-?-?-?-?-?-?-?-?- Negative 140 -?-?-?-?-?-?-?-?-?-?-?-?- SM- having some intermittent headaches, dec fm at times- ordered bpp. reglan, pepcid. labs done WNL yesterday reactive NST today and yesterday ACOG First Trimester First Trimester: Desire for , Alcohol, Tobacco Cessation, Illicit/Recreational Drug/Substance Use, Intimate Partner Violence, Barriers to care, Unstable Housing, Communication Barriers, Environmental/Work Hazards, Anticipated Course of Care, Toxoplasmosis Precations, Use of Any medications, Sexual activity, Exercise, Dental Care, Sauna/Hot tub use, Seat Belt use, Childbirth classes/Hospital facilities, Travel, Indications for Ultrasound and Screening for Aneuploidy; Discussed Second Trimester Second Trimester: Signs and Symptoms of Labor, Selecting a care provider, Reproductive Life Planning & Contreception, Care Planning, Depression/Anxiety and Intimate Partner Violence; Discussed Tobacco Cessation Third Trimester Third Trimester: Pain Management Plans, Labor support person(s), Immediate Larc, Circumcision preference, Movement Monitoring, Signs and Symptoms of Preeclampsia, Labor Signs, Feeding No and Family Medical Leave or Disability Forms ROS Const Denies fever(s) Card Reports system reviewed and no additional complaints, except as documented Resp Reports system reviewed and no additional complaints, except as documented GI Reports as per HPI and Denies abdominal pain Reports as per HPI, Denies abnormal vaginal bleeding, Denies dysuria and Denies vaginal discharge Musc Reports system reviewed and no additional complaints, except as documented Exam Const General: healthy appearing, comfortable and no acute distress HENMT Head: normal to inspection Nose: external nose normal Face and sinus: normal facial exam Neck Neck: normal visual inspection, full ROM and no lymphadenopathy Thyroid: thyroid normal Chest Chest palpation & inspection: normal inspection of the chest Resp Effort & Inspection: normal respiratory effort GI Inspection: normal to inspection Palpation: soft and nontender Other: vertex and appropriate size for gestational age Other: Cervical Exam: Extrem General: pedal edema Office Procedures Non-stress Test Non-Stress Test Indications for Monitoring: Yes Morbid obesity Heart Rate Baseline: 140 Heart Rate Variability: moderate Movement: Present Heart Rate Accelerations: Present Decelerations: Absent Contractions: Absent Impression: Yes Reactive Non-Stress Test Category 1 Results POC Urinalysis 2 Dip (Clinic) Office Urine Glucose Negative Last Edit by Geneva Long on 03/17/25 13:09 Office Urine Protein Negative Last Edit by Geneva Long on 03/17/25 13:09 Coding Level of Care Code Off vis,est,level 3 Diagnoses Acid reflux K21.9 Headache R51.9 Sterilization Z30.2 Pelvic pain affecting O26.899; R10.2 Family history of autism Z81.8 History of delivery, currently O34.219 Obesity affecting in second trimester, unspecified obesity type O99.212 Obesity type affecting : unspecified obesity Trimester: second trimester Supervision of high risk in second trimester O09.92 Trimester: second trimester 37 weeks gestation of Z3A.37 Weeks of gestation: 37 weeks CPT Codes Non-Stress Test (83425) Assessment and Plan Assessment and Plan (1) Acid reflux: Status: Acute Comment: pepcid (2) Headache: Status: Acute (3) Sterilization: Status: Acute Comment: title 19 signed 01/06 (4) Pelvic pain affecting : Status: Acute (5) Family history of autism: Status: Acute Comment: FOB sister (6) History of delivery, currently : Status: Acute Comment: x1, Desires rpt csec with SM, c/s 03/24. (7) Obesity affecting : Status: Acute Qualifiers: Obesity type affecting : unspecified obesity Trimester: second trimester Qualified Code(s): O99.212 - Obesity complicating , second trimester Comment: BMI: 35.6; HgBA1C ordered w/NOB (8) Supervision of high-risk : Status: Acute Qualifiers: Trimester: second trimester Qualified Code(s): O09.92 - Supervision of high risk , unspecified, second trimester Comment: PRR, , LINDA 03/31/25 Girl, Rao PC: Babak, : Max (9) : Status: Acute Qualifiers: Weeks of gestation: 37 weeks Qualified Code(s): Z3A.37 - 37 weeks gestation of Comment: Discussed genetic/carrier testing - prior carrier done. Panorama low risk- female. unremarkable anatomy, consistent dates Orders: Orders POC Urinalysis 2 Dip (Clinic) Today OB NST Today O99.212 - Obesity complicating , second trimester Medications: New famotidine (Pepcid) 20 mg PO BID 60 tabs 6RF metoclopramide HCl (Reglan) 10 mg PO TID 90 tabs 3RF nausea Discontinued cephalexin space evenly during waking hours Discontinued Reason: By Stop Date 500 mg PO TID RLTCS and BS UPDATE- I have seen the patient and performed any clinically relevant updates to the history and physical exam. Renate Cervantes MD
--- NOTE | 2025-03-24 09:46 | NURSING ---
0764 Pt ate pizza at 0500 this morning- pts csection is then delayed for 6-8 hours-new surgery time is 1530 today. pt able to have clear liquids till noon then NPO- pt going to take a nap
[2025-03-24] MEDS: Lactated Ringers 1,000 ML 999 ML IV (14:09)
[2025-03-24] MEDS: 0.9% Saline Lock 10 ML Syringe IV ×2 (14:09→23:03)
[2025-03-24] MEDS: Lactated Ringers 1,000 ML 150 ML IV (15:06)
[2025-03-24] MEDS: Lactated Ringers 1,000 ML 1000 ML IV (15:19)
[2025-03-24] MEDS: Cefazolin 1 GM/5 ML Vial 3 GM IV (15:29)
--- NOTE | 2025-03-24 15:30 | DCINST_ITS ---
Discharge Instructions DC O2, CPAP, BIPAP needs Home O2 Discharge instructions: No Dressing / Incision Discharge Activity: May Not Drive (for 2 weeks or while taking narcotic pain medications.), May Shower and May Take a Tub Bath (in 7 days) May shower in (days): 0 May resume sexual activity in: 4-6 weeks Weight Bearing Status: Full weight bearing Lifting Restrictions: 20 pounds Dressing / Incision Call your doctor if your incision/area has: Continuous Slow Oozing, Sudden Increased Bleeding, Increased Pain/ Swelling, Increased Redness and Foul Smelling Discharge Call your doctor if you observe: Fever of 101 or Higher and Using more than 1 pad per hour (for 2 hours) Suture Line Care: Avoid Pulling/Pushing and Avoid Pinching/Bending Cleanse incision/area with: Soap & Water and Keep Dressing Clean & Dry Follow Up Care Please Follow Up With: Renate Cervantes MD When: Call [phone] to make an appointment for an incision check in 1-2 weeks. Test Results: Test results from this visit will be discussed in further detail at your follow- up appointment, if applicable. Discharge Plan Admission Admit Date/Time: 03/24/25 04:59 Attending Provider: Renate Cervantes Primary Care Provider: Care Physician,Mariah Primary Discharge Orders/Prescriptions Prescriptions: No Action famotidine [Pepcid] 20 mg tablet 20 mg PO BID Qty: 60 6RF metoclopramide HCl [Reglan] 10 mg tablet 10 mg PO TID Qty: 90 3RF Referrals / Follow Up: Care PhysicianMariah Primary [Primary Care Provider, Medical]
--- NOTE | 2025-03-24 15:31 | EX.PCM.OBRPT ---
Assessment & Plan (1) Headache: (2) Sterilization: COMMENT: title 19 signed 01/06 (3) Pelvic pain affecting : (4) : QUALIFIERS: Weeks of gestation: 37 weeks Qualified Code(s): Z3A.37 - 37 weeks gestation of COMMENT: Discussed genetic/carrier testing - prior carrier done. Panorama low risk-female. unremarkable anatomy, consistent dates (5) Supervision of high-risk : QUALIFIERS: Trimester: second trimester Qualified Code(s): O09.92 - Supervision of high risk , unspecified, second trimester COMMENT: PRR, , LINDA 03/31/25 Girl, Alvares PC: Babak, : Adolph (6) Obesity affecting : QUALIFIERS: Trimester: second trimester Obesity type affecting : unspecified obesity Qualified Code(s): O99.212 - Obesity complicating , second trimester COMMENT: BMI: 35.6; HgBA1C ordered w/NOB (7) History of delivery, currently : COMMENT: x1, Desires rpt csec with DALTON c/s 03/24. (8) delivery delivered: COMMENT: RLTCS alvares 39 (9) Status post bilateral salpingectomy: Maternal Data Information LINDA Calculator Estimated Delivery Date Method Current WG Current Estimate 03/31/25 LMP (Certain) 39w 1d Other Estimates 03/30/25 Ultrasound #1 39w 2d Operative Report (OB) Procedure Details Date of Procedure: 03/24/25 Procedure Start Time: 15:43 Pre-Operative Diagnosis: Other Other Pre-Operative diagnosis: see a/p comments Post-Operative Diagnosis: Same as Pre-operative diagnosis Classification: Scheduled Type of Anesthesia: Spinal Special Medications: none Antibiotic Given: Ancef 3 grams IV x1 Drain: Man to straight drain Estimated Blood Loss: 900 Fluids Replaced: crystalloid Findings Description of surgery: Spinal anesthesia was placed without difficulty. Man catheter was placed. The patient was placed in the dorsal supine position with leftward tilt. Patient was prepped and draped in the normal sterile fashion. Pfannenstiel skin incision was made with the scalpel and carried through to the underlying layer of fascia with the scalpel. Fascia was nicked in the midline and the incision extended laterally. The rectus bellies were dissected off superiorly and inferiorly with out complication both sharply and bluntly. The peritoneum was entered digitally. scar tissue encountered and taken down with the ligasure. The incision was stretched and a low transverse uterine incision was made with the scalpel. The 's head was delivered atraumatically followed by the anterior and posterior shoulders without complication the rest of the delivered. The cord was clamped and cut and the infant was handed off to awaiting nurse. The placenta was delivered spontaneously immediately following and was noted to be intact and have a three-vessel cord. The uterus was exteriorized cleared of all clots and debris, and the incision was closed in a single layer closure using #1 Monocryl. The ovaries and fallopian tubes were noted to be within normal limits. Patient had desired sterilization and was counseled preoperatively regarding irreversibility and permanency. Therefore bilateral fallopian tubes were elevated and transected across using a LigaSure device starting proximally to distally without complication the entire fallopian tubes were removed. large posterior adhesion to the bowel noted and it was carefully taken down with the ligasure without complication. The uterus was returned to the maternal abdomen and gutters were cleared of all clots and debris. The peritoneum was closed with 3-0 Monocryl in a running fashion. Gloves were changed prior to fascial closure. Fascia was closed with 0 PDS in a running fashion. Subcutaneous tissue was copiously irrigated and the skin was closed with 3-0 Monocryl in a subcuticular fashion. Mepilex dressing was applied without complication. Patient was taken to recovery in stable condition. Surgical findings: scar tissu in the abdomen taken down with the ligasure Amniotic Membrane Rupture Type: Artificial Amniotic Fluid Description: Clear Specimen collected: Yes Description of specimen(s) removed: Placenta Cord Vessel Description: 3 Vessels Delayed Cord Clamping: Yes Rat Exterminator pole shaver helper: Yes Beam Press Operator: Mar Solis Tasks completed by personal care assistant: Opening & closing, Retracting and Other (Assisting with delivery of the infant) Additional assistant men's soccer coach?: No Complications Complications: No Admit VTE Documentation VTE Present on Admission: No VTE Mechan Device Prophylaxis: SCD's Procedures Urinary/Genital 52xxx-59xxx: 55124 delivery+PP Care([facility])
[2025-03-24] MEDS: Oxytocin 15 Units/NS 250ml 15 UNITS/250 ML IV.SOLN 83 UNITS IV (17:08)
[2025-03-24] MEDS: Ketorolac 30 MG/ML Syringe IV ×2 (17:32→23:03)
--- NOTE | 2025-03-24 18:02 | NURSING ---
1800 phone call placed to kendy notified of additional blood loss of 350 cc (150 expressed in OR and 200 in the room)- methergine was given in OR and dr chapman was aware POC is to draw a cbc at 2000 tonight- lochia is now small and well controlled.
--- NOTE | 2025-03-24 18:13 | FALS_PTH ---
PATIENT: QUAN RODGERS LOC: [facility] U#:[id number] AGE/SX: ROOM: WP007 RE03/24/[address]: Dr. Renate Cervantes MD : 2000 BED: 1 DIS: 03/25/2025 SPEC #: [id number] RECD: 03/24/25 18:22 STATUS: DANNY ROMEL #: [id number] JOSE: 03/24/25 18:[address]: Renate Cervantes DEPT: SURGICAL PATHOLOGY RECD BY: Glenroy Guerrero ENTERED: 03/25/25 10:02 SP TYPE: FALL TUBES OTHR DR: No Primary Care Phys Tissues: A - Fallopian tube Procedures: Surgery Specimen Level II HEADER OPERATION: Tubal ligation PRE-OP DIAGNOSIS: Identification TISSUE SUBMITTED: A- Bilateral fallopian tubes MICROSCOPIC DIAGNOSIS A. Bilateral fallopian tubes, tubal ligation: * No specific pathologic change (complete luminal cross-section confirmed), left (A1). * No specific pathologic change (complete luminal cross-section confirmed), right (A2). MICROSCOPIC DESCRIPTION Slides are reviewed. GROSS DESCRIPTION A. Received in formalin labeled with the patient's name and date of . Designated as stitch in left are 2 red-purple fallopian tubes. There is a suture on one fallopian tube designated as left. The left fallopian tube is devoid of fimbria and measures 7.7 x 0.4-1.2 cm; the right fallopian tube is fimbriated with multiple paratubal cysts (0.1 cm to 0.4 cm) and measures 10.2 x 0.3-0.9 cm. Senior Lead Project Manager sections are submitted in 2 cassettes as follows: A1: Left fallopian tubeA2: Right fallopian tube CO 03/25/2025 CPT:81651s3
[2025-03-24 19:26] LABS: Pathology Specimen OB SEE PATHOLOGY REPORT
[2025-03-24 20:25] LABS: Hematocrit 39.5 % (37-47); Hemoglobin 13.8 g/dL (12.0-15.0); Mean Corp Hgb Conc 34.9 g/dL (32-36); Mean Corpuscular Volume 91.6 fL (81-99); Mean Platelet Vol. 12.7 fl (6.2-12.0); Platelet Count 187 K/mm3 (150-450); RBC Distribution Width CV 12.4 % (11.6-14.6); RBC Distribution Width SD 41.6 fl (35.1-43.9); Red Blood Count 4.31 M/mm3 (4.2-5.4); White Blood Count 21.5 K/mm3 (4.4-11.0)
[2025-03-24] MEDS: Lactated Ringers 1,000 ML 100 ML IV (20:25)
[2025-03-25] VITALS (7 sets, daily range): BP systolic 96–132; BP diastolic 66–84; PULSE 76–99; RESP 16; TEMP 36.1–36.7; O2SAT 97–99
[2025-03-25] MEDS: 0.9% Saline Lock 10 ML Syringe IV (05:44)
[2025-03-25] MEDS: Ketorolac 30 MG/ML Syringe IV ×2 (05:44→11:26)
[2025-03-25 06:50] LABS: Hematocrit 31.9 % (37-47); Hemoglobin 11.2 g/dL (12.0-15.0); Mean Corp Hgb Conc 35.1 g/dL (32-36); Mean Corpuscular Volume 89.9 fL (81-99); Mean Platelet Vol. 12.5 fl (6.2-12.0); Platelet Count 190 K/mm3 (150-450); RBC Distribution Width CV 12.4 % (11.6-14.6); RBC Distribution Width SD 40.7 fl (35.1-43.9); Red Blood Count 3.55 M/mm3 (4.2-5.4); White Blood Count 15.5 K/mm3 (4.4-11.0)
[2025-03-25] MEDS: Senna/Docusate Sodium 1 Tablet PO (08:39)
--- NOTE | 2025-03-25 13:18 | PN.OBGYN_ITS ---
Subjective Subjective Patient doing well without complaints. Tolerating PO. Ambulating and voiding without difficulty. feeding well. Denies chest pain, shortness of breath, calf pain/swelling, fevers, chills, lightheadedness. Objective Data Objective Data Vital Signs: Vital Signs Temp Pulse Resp BP Pulse Ox O2 Del Method 97.7 F L 92 16 125/68 H 97 Room Air 03/25/25 12:48 03/25/25 12:48 03/25/25 12:48 03/25/25 12:48 03/25/25 12:48 03/25/25 12:48 Oxygen Delivery Method Room Air Weight: 275 lb 12.772 oz Body Mass Index (BMI) 39.5 Intake & Output: Intake and Output for Last 24 Hours 03/23/25 03/24/25 03/25/25 23:59 23:59 23:59 Intake Total 1834.05 / 1834.05 931.67 / 931.67 Output Total 1460 / 1460 625 / 625 Balance 374.05 / 374.05 306.67 / 306.67 Lab / Micro Data 03/25/25 06:00 Labs: Laboratory Results - last 24 hr 03/24/25 20:09: WBC 21.5 H, RBC 4.31, Hgb 13.8, Hct 39.5, MCV 91.6, MCH 32.0, MCHC 34.9, RDW Std Deviation 41.6, RDW Coeff of Jil 12.4, Plt Count 187, MPV 12.7 H 03/25/25 06:00: WBC 15.5 H, RBC 3.55 L, Hgb 11.2 L, Hct 31.9 L, MCV 89.9, MCH 31.5, MCHC 35.1, RDW Std Deviation 40.7, RDW Coeff of Jil 12.4, Plt Count 190, M PV 12.5 H ROS Constitutional Constitutional: Reports systems reviewed and no addt'l complaints, except as documented Cardiovascular Cardiovascular: Reports systems reviewed and no addt'l complaints, except as documented Respiratory/Chest Respiratory/Chest: Reports systems reviewed and no addt'l complaints, except as documented Gastrointestinal Gastrointestinal: Reports systems reviewed and no addt'l complaints, except as documented Physical Exam Const alert, oriented x3 and no apparent distress HEENT Head and Scalp: atraumatic Resp normal respiratory effort GI soft to palpation and non-tender Inspection: incision intact, healing well and drainage (none) Bimanual Exam - Vag & Uterus: uterus non-tender Uterus Palpation: uterus fundus firm (below Umbilicus) Assessment & Plan (1) Status post bilateral salpingectomy: (2) delivery delivered: COMMENT: DALTON RLTCS alvares 39 PLAN: Plan s/p LTCS PPD # 1 1. routine post care 2. breast feeding- support given 3. rh positive 4. rubella immune
== END 2025-03-25 17:30 | disposition home or self-care (01) | DRG 539 ==
PROVIDERS: Admitting Provider Obstetrics & Gynecology; Referring Provider Obstetrics & Gynecology; Visit Provider Obstetrics & Gynecology
PROC: 10D00Z1 Extraction of Products of Conception, Low, Open Approach (ICD-10-PCS; CPT 59514; principal; 2025-03-24 07:00)
DX: O34.211 Maternal care for low transverse scar from previous cesarean delivery (principal); E66.01 Morbid (severe) obesity due to excess calories; K21.9 Gastro-esophageal reflux disease without esophagitis; O99.214 Obesity complicating childbirth; Z37.0 Single live birth; Z3A.37 37 weeks gestation of pregnancy; O99.62 Diseases of the digestive system complicating childbirth; Z79.899 Other long term (current) drug therapy; Z87.59 Personal history of other complications of pregnancy, childbirth and the puerperium; Z87.891 Personal history of nicotine dependence; Z30.2 Encounter for sterilization
CPT/HCPCS: 59050; 85025; 85027; 86780; 86850; 86900; 86901; 88302; 99221; A4216; G0378; J2405